=== PATIENT | male | born 1950 | race Caucasian/White ===

== ENCOUNTER 2018-07-04 13:11 | Inpatient (IN) | payer MEDICARE, OTHER ==
[2018-07-04] VITALS (10 sets, daily range): BP systolic 114–157; BP diastolic 66–84
[~2018-07-04] VITALS: Ht 190.5 cm; Wt 111.2 kg
[2018-07-04] MEDS ORDERED: CEFEPIME INJECTION 1,000 MG in NS (IVPB) 50 ML IV SCH (13:30)
[2018-07-04] MEDS ORDERED: NS (IVPB) 50 ML ONE (15:10)
[2018-07-04] MEDS ORDERED: CEFEPIME 1 GM (MAXIPIME) VIAL ONE (15:10)
[2018-07-04] MEDS ORDERED: GLIP10TA13 PO (15:18)
[2018-07-04] MEDS ORDERED: WARF4TAB70 PO ×2 (15:18→15:43)
[2018-07-04] MEDS ORDERED: PIOG30TA71 PO (15:18)
[2018-07-04] MEDS ORDERED: LEVO112T55 PO (15:18)
[2018-07-04] MEDS ORDERED: SIMV80TA5 PO (15:18)
[2018-07-04] MEDS ORDERED: METF-399 PO (15:18)
[2018-07-04] MEDS: NS IV 1000 ML 1,000 ML IV SCH ×3 (15:31→22:00)
[2018-07-04] MEDS: NOREPINEPHRINE 4 MG in NS (IVPB) 250 ML IV SCH (15:33)
[2018-07-04] MEDS ORDERED: SITA100T12 PO (15:43)
[2018-07-04] MEDS ORDERED: CHLO4TAB PO ×2 (15:43→15:47)
[2018-07-04] MEDS ORDERED: TADA5TAB2 PO (15:43)
--- NOTE | 2018-07-04 15:46 | Diagnostic Imaging Report ---
INDICATION: Sepsis. COMPARISON: None. FINDINGS: Single frontal radiographic view of the chest was obtained and demonstrates borderline prominent appearance of the cardiac silhouette. Pulmonary vasculature is within normal limits. Lungs are clear. There is no focal consolidation, large effusion, nor pneumothorax. Bony structures show no gross acute abnormalities. IMPRESSION: 1. Borderline prominent appearance of the cardiac silhouette. This may be artificially accentuated secondary to portable technique. 2. Otherwise, no evidence of failure or focal infiltrate. Dictated by: Dictated on workstation # [id number]
--- NOTE | 2018-07-04 15:47 | Consultation-Cardiology ---
HPI-Cardiology Cardiology Consultation Date of Consultation 07/04/18 Date of Admission Time Seen by Provider: 15:39 Indication: elevated troponin level HPI 68 years old gentleman with history of coronary artery disease, had 2 stents placed in the late 90s. No further workup was done. Was in his usual state of health, had some diarrhea yesterday. He was wrapping [place] gift today when he had episode of dizziness and diaphoresis and had significant diarrhea, multiple bowel movement. Taken to the emergency room in [place] and transferred here after noting having elevation in troponin level and lactic acid with leukocytosis. He denied any fever or chills. Denied any chest pain, no heaviness, no pressure or palpitation, denied any syncope, had some lightheadedness and dizziness. Has been having some shortness of breath on exertion. Home Medications & Allergies Allergies: Coded Allergies: No Allergy Information Available (Unverified , 07/04/18) Home Medication List Reviewed: Yes [facility]-Gmftvn Hx Patient Social History Marital Status: Employed/Student: retired Alcohol Use: Occasionally Uses Recreational Drug Use: No Smoking Status: Former Smoker Type Used: Cigarettes Recent Foreign Travel: No Recent Infectious Disease Expo: No Recent Hopitalizations: No Physical Abuse Screen: No Sexual Abuse: No Immunizations Up To Date Date of Influenza Vaccine: May 04, 2018 Past Medical History past medical history as described below Family Medical History Family Medical Hx strong family history of heart disease with father of a heart attack, brother and 2 sisters had bypass surgeries Review of Systems Constitutional: see HPI, dizziness, malaise EENTM: see HPI, no symptoms reported Respiratory: see HPI; No cough; dyspnea on exertion; No hemoptysis, No orthopnea, No phlegm, No short of breath, No stridor, No wheezing, No other Cardiovascular: see HPI; No chest pain, No edema, No Hx of Intervention, No palpitations, No syncope, No vascular heart diseas, No other Gastrointestinal: No RUQ, No LUQ, No RLQ, No LLQ; see HPI; No abdominal pain, No constipation; diarrhea; No dysphagia, No hematemesis, No heartburn, No jaundice, No loss of appetite, No melena, No nausea, No vomiting, No other Genitourinary: no symptoms reported, see HPI Musculoskeletal: no symptoms reported, see HPI Skin: no symptoms reported, see HPI Psychiatric/Neurological: No Symptoms Reported, See HPI Reviewed Test Results Reviewed Test Results Lab Laboratory Tests Test 07/04/18 14:46 07/04/18 14:49 Range/Units Lactic Acid Level 2.59 *H 0.50-2.00 MMOL/L Troponin I < 0.30 <0.30 NG/ML Glucometer 148 H 70-110 MG/DL labs from [place] emergency room WBC 11.8 Hemoglobin 10.9 Platelets 366 INR 2.6 BUN 17 and creatinine 1.54 Glucose 250 Troponin 20, normal value in [address] [place] [address] is less than 15 Lactic acid 3.7 Liver enzymes were normal, sodium 131 otherwise electrolytes were normal Physical Exam Vital Signs Vital Signs - First Documented 07/04/18 14:34 Temp 96.3 Pulse 76 Resp 18 B/P (MAP) 143/79 (100) Pulse Ox 99 O2 Delivery Room Air Capillary Refill : Height, Weight, BMI Height: 6'3.00" Weight: 231lbs. 7.0oz. 104.712920jh; 28.9 BMI Method: General Appearance: No Apparent Distress, WD/WN Eyes: Bilateral Eye Normal Inspection, Bilateral Eye PERRL, Bilateral Eye EOMI HEENT: PERRL/EOMI, TMs Normal, Normal ENT Inspection, Pharynx Normal Neck: Full Range of Motion, Normal Inspection, Non Tender, Supple, Carotid Bruit (left bruit) Respiratory: Chest Non Tender, Lungs Clear, Normal Breath Sounds, No Accessory Muscle Use, No Respiratory Distress Cardiovascular: Regular Rate, Rhythm, No Edema, No Gallop, No JVD, No Murmur, Normal Peripheral Pulses Gastrointestinal: Normal Bowel Sounds, No Organomegaly, No Pulsatile Mass, Non Tender, Soft Back: Normal Inspection, No CVA Tenderness, No Vertebral Tenderness Extremity: Normal Capillary Refill, Normal Inspection, Normal Range of Motion, Non Tender, No Calf Tenderness, No Pedal Edema Neurologic/Psychiatric: Alert, Oriented x3, No Motor/Sensory Deficits, Normal Mood/Affect Skin: Normal Color, Warm/Dry Lymphatic: No Adenopathy A/P-Cardiology Admission Diagnosis Non-ST myocardial infarction Hyperlipidemia Diabetes mellitus Coronary artery disease Assessment/Plan Non-ST elevation myocardial infarction, history of coronary artery disease, 2 stents placed in the late 90s, no further workup was done, has been asymptomatic. Had elevation in troponin which will be repeated in our institution. Patient had subtle EKG changes in the inferior leads, nonspecific in addition to first degree AV block. He is asymptomatic at this time. Started on aspirin. He is maintained on Coumadin with INR 2.5 which is held. I will continue monitoring and planning to proceed with cardiac catheterization once his INR is lower and renal function are better unless he becomes symptomatic or had more acute EKG changes or change in condition Sepsis, lactic acidosis. Started on IV fluid. Receiving antibiotic and monitor and managed by primary care physician Diabetes mellitus, hyperglycemia, followed and managed by primary care physician Diarrhea, followed and managed by primary care physician Hyperlipidemia maintained on simvastatin. I will evaluate lipid profile Carotid bruit noted on the left side. 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 Currently in remission Hypothyroidism, followed and managed by primary care physician History of colon polypectomy done in 2008 Strong family history of heart disease with multiple family members with heart attack and bypass surgeries TAVON SUGGS MD Jul 04, 2018 15:47
[2018-07-04] MEDS ORDERED: CATHETER FLUSH 10 ML SYR IV PRN (16:00)
--- NOTE | 2018-07-04 16:19 | History & Physical-Hospitalist ---
History of Present Illness HPI/Chief Complaint Pt is a 68CM with a PMH of Bladder cancer, NIDDMII, CAd s/p stenting, DVT/PE, hypothyroidism, and HLD who presented to the ER due to near syncopal episode. He states he was up wrapping his 's [place] presents when he began to feel very lightheaded, sweaty, and weak. He walked over to a chair so he didn't fall and when he sat he realized he had been had a loose stool at that time so he went to the bathroom where he continued to have a large volume stool. He then developed neck pain and felt like he was going to pass out. He is unsure if he did have a syncopal episode. He called 911 at that time. When he was found by EMS he was found to be very hypotensive. He responded well to fluids in the OSH but was found to have an elevated high sensitivity troponin and was transferred here for further cardiac evaluation. Source: patient, family Date Seen 07/04/18 Time Seen by a Provider: 16:12 Attending Physician Concha Shabazz MD PCP Hans Farmer MD Referring Physician Date of Admission Jul 04, 2018 at 14:51 Home Medications & Allergies Home Medications Reviewed patient Home Medication Reconciliation performed by pharmacy medication reconciliations process control technician and/or nursing. Patients Allergies have been reviewed. Allergies Allergies Coded Allergies No Allergy Information Available (Wkgtdwvgkb01/19/18) Past Rcdpfuv-Hxwxfn-Tbsnty Hx Past Med/Social Hx: Reviewed Nursing Past Med/Soc Hx Patient Social History Marrital Status: Employed/Student: retired Alcohol Use: Occasionally Uses Number of Drinks Today: 1 Alcohol Beverage of Choice: [place] Recreational Drug Use: No Smoking Status: Former Smoker Former Smoker, Quit: Jul 04, 1980 Type Used: Cigarettes Physical Abuse Screen: No Sexual Abuse: No Recent Foreign Travel: No Contact w/other who traveled: No Recent Hopitalizations: No Recent Infectious Disease Expo: No Immunizations Up To Date Date of Influenza Vaccine: May 04, 2018 Seasonal Allergies Seasonal Allergies: No Past Medical History Currently Using CPAP: No Currently Using BIPAP: No Are Your Blood Sugars Over 250: No HEENT: Cataract Hearing Impairment: Denies Cancer: Bladder Did You Recieve Any Treatments: Yes What Type of Treatment Did You: Surgical Intervention Cancer: live tb Skin/Integumentary: Psoriasis History of Blood Disorders: No Adverse Reaction to Blood [place]: No Review of Systems Constitutional: No chills, No fever; weakness EENTM: No blurred vision, No double vision, No nose congestion, No throat pain Respiratory: No cough, No dyspnea on exertion, No short of breath Cardiovascular: No chest pain, No edema; Hx of Intervention; No palpitations; syncope Gastrointestinal: see HPI, diarrhea Genitourinary: No dysuria, No frequency Musculoskeletal: No joint pain, No muscle pain Skin: No lesions, No rash Psychiatric/Neurological: Denies Headache, Denies Numbness, Denies Tingling Physical Exam Physical Exam Vital Signs Vital Signs - First Documented 07/04/18 07/04/18 14:29 14:34 Temp 96.3 Pulse 78 Resp 18 B/P (MAP) 143/79 (100) Pulse Ox 99 O2 Delivery Room Air Capillary Refill : Height, Weight, BMI Height: 6'3.00" Weight: 231lbs. 7.0oz. 104.967888ns; 28.9 BMI Method: General Appearance: No Apparent Distress, WD/WN HEENT: PERRL/EOMI, Moist Mucous Membranes; No Scleral Icterus (L), No Scleral Icterus (R) Neck: Non Tender, Supple; No Thyromegaly Respiratory: Lungs Clear, No Respiratory Distress Cardiovascular: Regular Rate, Rhythm, No JVD, No Murmur Gastrointestinal: Normal Bowel Sounds, Non Tender, Soft Extremity: Normal Capillary Refill, No Calf Tenderness Neurologic/Psychiatric: Alert, Oriented x3, Normal Mood/Affect Skin: Normal Color, Warm/Dry; No Mottled Results Results/Procedures Labs Laboratory Tests 07/06/18 04:05 07/07/18 03:13 Patient resulted labs reviewed. Assessment/Plan Admission Diagnosis NSTE Hypotension Admission Status: Inpatient Order (span 2 midnights) Reason for Inpatient Admission: IV fluid resuscitation, cardiology elevation for eleevate troponin Diagnosis/Problems Diagnosis/Problems (1) Hypotension Assessment & Plan: Hypotensive in OSH but now normalized Likely due to volume loss from GI losses No signs of infection Has already received abx and cultures at outside hospital Continue abx here as precaution Qualifiers: Hypotension type: hypotension due to hypovolemia Qualified Codes: I95.89 - Other hypotension; E86.1 - Hypovolemia (2) CAD (coronary artery disease) Status: Chronic Assessment & Plan: No chest pain Extensive cardiac history high sensitivity troponin elevated at OSH concerning for NSTEMI troponin negative here Cardiology consulted, appreciate recs Qualifiers: Coronary Disease-Associated Artery/Lesion type: [place] artery [place] vs. transplanted heart: [place] heart Associated angina: without angina Qualified Codes: I25.10 - Atherosclerotic heart disease of [place] coronary artery without angina pectoris (3) Non-insulin dependent type 2 diabetes mellitus Status: Chronic Assessment & Plan: SSI (4) Hypothyroidism Status: Chronic Assessment & Plan: Continue home supplement Qualifiers: Hypothyroidism type: acquired Qualified Codes: E03.9 - Hypothyroidism, unspecified (5) Chronic anticoagulation Assessment & Plan: INR at therapeutic level at OSH On for DVT and PE (6) Bladder cancer Status: Chronic Assessment & Plan: remote history 8 years ago Qualifiers: Bladder location: unspecified site Qualified Codes: C67.9 - Malignant neoplasm of bladder, unspecified Clinical Quality Measures DVT/VTE Risk/Contraindication: Risk Factor Score Per Nursin RFS Level Per Nursing on Admit: 2=Moderate CONCHA SHABAZZ MD Jul 04, 2018 16:19
--- NOTE | 2018-07-04 16:52 | Pulmonary Consultation ---
History of Present Illness History of Present Illness Date of Consultation 07/04/18 16:51 Date of Admission Reason for Visit: elevated troponin level Allergies and Home Medications Allergies Coded Allergies: No Allergy Information Available (Unverified , 07/04/18) Home Medications Chlorpheniramine Maleate 4 Mg Tablet, 4 MG PO DAILY, (Reported) Chlorpheniramine Maleate 4 Mg Tablet, 4 MG PO BID PRN for DRAINAGE, (Reported) Glipizide 10 Mg Tablet, 10 MG PO BID, (Reported) Levothyroxine Sodium 112 Mcg Tablet, 112 MCG PO DAILY, (Reported) Metformin HCl 1,000 Mg Tablet, 1,000 MG PO BID, (Reported) Pioglitazone HCl 30 Mg Tablet, 30 MG PO HS, (Reported) Simvastatin 80 Mg Tablet, 80 MG PO HS, (Reported) Sitagliptin Phosphate 100 Mg Tablet, 100 MG PO DAILY, (Reported) Tadalafil 5 Mg Tablet, 5 MG PO DAILY, (Reported) Warfarin Sodium 4 Mg Tablet, 8 MG PO MoWe, (Reported) TAKES 2 (4MG) TABLETS Warfarin Sodium 4 Mg Tablet, 4 MG PO SuTuThFrSa, (Reported) Past Hadjlkn-Nkhyjc-Ybqlad Hx Patient Social History Alcohol Use: Occasionally Uses Number of Drinks Today: 1 Alcohol Beverage of Choice: [place] Recreational Drug Use: No Smoking Status: Former Smoker Type Used: Cigarettes Former Smoker, Quit: Jul 04, 1980 Recent Foreign Travel: No Contact w/Someone Who Travel: No Recent Infectious Disease Expo: No Recent Hopitalizations: No Immunizations Up To Date Date of Influenza Vaccine: May 04, 2018 Seasonal Allergies Seasonal Allergies: No Past Medical History Surgeries: Yes Respiratory: No Currently Using CPAP: No Currently Using BIPAP: No Cardiac: Yes (stents in 1996) Neurological: No Genitourinary: Yes (bladder cancer in past) Gastrointestinal: No Musculoskeletal: No Are Your Blood Sugars Over 250: No HEENT: Yes Cataract Hearing Impairment: Denies Cancer: Yes Bladder Did You Recieve Any Treatments: Yes What Type of Treatment Did You: Surgical Intervention live tb Psychosocial: No Integumentary: Yes Psoriasis Blood Disorders: No Adverse Reaction/Blood Tranf: No Sepsis Event Evaluation Height, Weight, BMI Height: 6'3.00" Weight: 231lbs. 7.0oz. 104.163997ac; 28.9 BMI Method: Exam Exam Vital Signs Date Time Temp Pulse Resp B/P (MAP) Pulse Ox O2 Delivery O2 Flow Rate FiO2 07/04/18 15:46 99 Room Air 07/04/18 15:15 79 11 144/79 (100) 98 Room Air 07/04/18 14:34 96.3 76 18 143/79 (100) 99 Room Air 07/04/18 14:29 78 Height & Weight Height: 6'3.00" Weight: 231lbs. 7.0oz. 104.291459kh; 28.9 BMI Method: General Appearance: No Apparent Distress, WD/WN HEENT: PERRL/EOMI, TMs Normal, Normal ENT Inspection, Pharynx Normal Neck: Full Range of Motion, Normal Inspection, Non Tender, Supple, Carotid Bruit (left bruit) Respiratory: Chest Non Tender, Lungs Clear, Normal Breath Sounds, No Accessory Muscle Use, No Respiratory Distress Cardiovascular: Regular Rate, Rhythm, No Edema, No Gallop, No JVD, No Murmur, Normal Peripheral Pulses Extremity: Normal Capillary Refill, Normal Inspection, Normal Range of Motion, Non Tender, No Calf Tenderness, No Pedal Edema Neurologic/Psychiatric: Alert, Oriented x3, No Motor/Sensory Deficits, Normal Mood/Affect Skin: Normal Color, Warm/Dry Lymphatic: No Adenopathy Assessment/Plan Assessment/Plan Nstemi sepsis hypotension -resolved diarrhea ZAHRA BLOUNT DO Jul 04, 2018 16:52
[2018-07-04 17:33] LABS: CALCIUM 8.9 MG/DL (8.5-10.1); CREATININE SERUM 1.35 MG/DL (0.60-1.30); POTASSIUM 4.4 MMOL/L (3.6-5.0)
[2018-07-04] MEDS ORDERED: NON-FORMULARY MEDICATION 1 EA EA (Simvastatin 80 MG) PO SCH (21:00)
[2018-07-04] MEDS: SIMvastatin 40 MG (ZOCOR) TAB PO SCH (21:46)
[2018-07-04] MEDS: inSUlin ASPART (NovoLOG) 1 UNIT/0.01 ML (CHARGE PER UNIT) SC SCH (21:46)
[2018-07-04] MEDS: CEFEPIME 2 GM/NS 50 ML IVPB IV SCH ×2 (21:46)
[2018-07-05] VITALS (13 sets, daily range): BP systolic 104–154; BP diastolic 61–80
[2018-07-05 03:28] LABS: BASOPHILS % (AUTO) 0 % (0-10); EOSINOPHILS # (AUTO) 0.2 10^3/uL (0.0-0.3); EOSINOPHILS % (AUTO) 2 % (0-10); HEMATOCRIT 29 % (40-54); HEMOGLOBIN 9.7 G/DL (13.3-17.7); LYMPHOCYTES # (AUTO) 2.2 X 10^3 (1.0-4.0); LYMPHOCYTES % (AUTO) 31 % (12-44); MEAN CORPUSCULAR HEMOGLOBIN 29 PG (25-34); MEAN CORPUSCULAR HGB CONC 33 G/DL (32-36); MEAN CORPUSCULAR VOLUME 87 FL (80-99); MEAN PLATELET VOLUME 8.5 FL (7.4-10.4); MONOCYTES # (AUTO) 0.5 X 10^3 (0.0-1.0); MONOCYTES % (AUTO) 8 % (0-12); NEUTROPHILS # (AUTO) 4.2 X 10^3 (1.8-7.8); NEUTROPHILS % (AUTO) 59 % (42-75); PLATELET COUNT 325 10^3/uL (130-400); RED BLOOD COUNT 3.37 10^6/uL (4.35-5.85); RED CELL DISTRIBUTION WIDTH 13.6 % (10.0-14.5); WHITE BLOOD COUNT 7.1 10^3/uL (4.3-11.0)
[2018-07-05 03:40] LABS: INR 2.6 (0.8-1.4); PROTHROMBIN TIME PATIENT 27.9 SEC (12.2-14.7)
[2018-07-05 03:54] LABS: CALCIUM 7.9 MG/DL (8.5-10.1); CARBON DIOXIDE 20 MMOL/L (21-32); CHLORIDE 106 MMOL/L (98-107); CREATININE SERUM 1.12 MG/DL (0.60-1.30); GFR ESTIMATED > 60; GLUCOSE 145 MG/DL (70-105); MAGNESIUM 1.7 MG/DL (1.8-2.4); PHOSPHORUS 2.9 MG/DL (2.3-4.7); POTASSIUM 4.1 MMOL/L (3.6-5.0); SODIUM 136 MMOL/L (135-145)
[2018-07-05 04:02] LABS: BUN/CREATININE RATIO 13
[2018-07-05 04:22] LABS: ALANINE AMINOTRANSFERASE 14 U/L (0-55); ALBUMIN 3.3 GM/DL (3.2-4.5); ALKALINE PHOSPHATASE 45 U/L (40-136); BILIRUBIN,TOTAL 0.2 MG/DL (0.1-1.0); BUN/CREATININE RATIO 13; CALCIUM 8.1 MG/DL (8.5-10.1); CARBON DIOXIDE 21 MMOL/L (21-32); CHLORIDE 106 MMOL/L (98-107); CHOLESTEROL 103 MG/DL (< 200); GFR ESTIMATED > 60; GLUCOSE 146 MG/DL (70-105); HDL CHOLESTEROL 29 MG/DL (40-60); POTASSIUM 4.1 MMOL/L (3.6-5.0); SODIUM 136 MMOL/L (135-145); TOTAL PROTEIN 6.3 GM/DL (6.4-8.2); TRIGLYCERIDES 95 MG/DL (<150); VLDL CHOLESTEROL 19 MG/DL (5-40)
[2018-07-05] MEDS: NOREPINEPHRINE 4 MG in NS (IVPB) 250 ML IV SCH (05:24)
[2018-07-05] MEDS: inSUlin ASPART (NovoLOG) 1 UNIT/0.01 ML (CHARGE PER UNIT) SC SCH ×4 (05:25→21:00)
[2018-07-05] MEDS: NS IV 1000 ML 1,000 ML IV SCH ×2 (05:34→16:04)
[2018-07-05] MEDS ORDERED: POTASSIUM CL 10MEQ/50ML IVPB 50 ML IV SCH (06:00)
[2018-07-05] MEDS ORDERED: MAGNESIUM 1 GM/100 ML IVPB 100 ML IV SCH (06:00)
[2018-07-05] MEDS ORDERED: KCL 20 MEQ TAB (K-DUR) PO SCH (06:00)
[2018-07-05] MEDS: LEVOTHYROXINE 112 MCG (LEVOTHROID) TAB PO SCH (06:36)
[2018-07-05] MEDS: PANTOPRAZOLE 40 MG (PROTONIX) TAB PO SCH (06:36)
[2018-07-05] MEDS: MAGNESIUM 1 GM/100 ML IVPB 100 ML IV SCH ×2 (06:36→07:53)
--- NOTE | 2018-07-05 07:37 | Progress Note-Hospitalist ---
Subjective HPI/CC On Admission Date Seen by Provider: Jul 05, 2018 Time Seen by Provider: 07:33 Pt is a 68CM with a PMH of Bladder cancer, NIDDMII, CAd s/p stenting, DVT/PE, hypothyroidism, and HLD who presented to the ER due to near syncopal episode. He states he was up wrapping his 's [place] presents when he began to feel very lightheaded, sweaty, and weak. He walked over to a chair so he didn't fall and when he sat he realized he had been had a loose stool at that time so he went to the bathroom where he continued to have a large volume stool. He then developed neck pain and felt like he was going to pass out. He is unsure if he did have a syncopal episode. He called 911 at that time. When he was found by EMS he was Subjective/Events-last exam Pt reports feeling well today. No complaints. No further diarrhea or abd symptoms. Focused Exam Lactate Level 07/04/18 14:46: Lactic Acid Level 2.59*H 07/04/18 17:00: Lactic Acid Level 1.10 Objective Exam Vital Signs Vital Signs Date Time Temp Pulse Resp B/P (MAP) Pulse Ox O2 Delivery O2 Flow Rate FiO2 07/05/18 06:00 70 13 111/65 (80) 94 Room Air 07/04/18 14:34 96.3 Capillary Refill : General Appearance: No Apparent Distress, WD/WN Respiratory: Lungs Clear, No Respiratory Distress Cardiovascular: Regular Rate, Rhythm, No Murmur Gastrointestinal: Normal Bowel Sounds, Soft Neurologic/Psychiatric: Alert, Oriented x3 Results/Procedures Lab Laboratory Tests 07/04/18 14:46 07/05/18 03:19 Patient resulted labs reviewed. Assessment/Plan Assessment and Plan Assess & Plan/Chief Complaint Hypotension Diagnosis/Problems Diagnosis/Problems (1) Hypotension Assessment & Plan: Hypotensive in OSH but now normalized Likely due to volume loss from GI losses No signs of infection Has already received abx and cultures at outside hospital Plan to DC abx tomorrow if cultures negative x48 hours Can transfer to 4th floor Qualifiers: Hypotension type: hypotension due to hypovolemia Qualified Codes: I95.89 - Other hypotension; E86.1 - Hypovolemia (2) CAD (coronary artery disease) Status: Chronic Assessment & Plan: No chest pain high sensitivity troponin elevated at OSH but negative here Cardiology consulted, appreciate recs Plan for cath prior to DC, defer timing to Dr Melchor Qualifiers: Coronary Disease-Associated Artery/Lesion type: [place] artery [place] vs. transplanted heart: [place] heart Associated angina: without angina Qualified Codes: I25.10 - Atherosclerotic heart disease of [place] coronary artery without angina pectoris (3) Non-insulin dependent type 2 diabetes mellitus Status: Chronic Assessment & Plan: SSI holding home meds (4) Hypothyroidism Status: Chronic Assessment & Plan: Continue home supplement Qualifiers: Hypothyroidism type: acquired Qualified Codes: E03.9 - Hypothyroidism, unspecified (5) Chronic anticoagulation Assessment & Plan: INR 2.6 On for DVT and PE Holding for potential cath (6) Bladder cancer Status: Chronic Assessment & Plan: remote history 8 years ago Qualifiers: Bladder location: unspecified site Qualified Codes: C67.9 - Malignant neoplasm of bladder, unspecified Clinical Quality Measures DVT/VTE Risk/Contraindication: Risk Factor Score Per Nursin RFS Level Per Nursing on Admit: 2=Moderate CONCHA ARMENTA MD Jul 05, 2018 07:37
--- NOTE | 2018-07-05 07:45 | Diagnostic Imaging Report ---
INDICATION: Dyspnea. TECHNIQUE: Single frontal view of the chest. COMPARISON: 07/04/2018 FINDINGS: There is mild cardiomegaly. No focal consolidation is seen. There is no pleural effusion or pneumothorax. The osseous structures demonstrate no acute abnormality. IMPRESSION: Cardiomegaly with no acute pulmonary abnormality seen. Dictated by: Dictated on workstation # [id number]
--- NOTE | 2018-07-05 07:51 | Cardiology Progress Note ---
Subjective Date Seen by Provider: Jul 05, 2018 Time Seen by Provider: 07:48 Subjective/Events-last exam Patient is in bed, feeling better, no dizziness, no chest pain, no diarrhea Review of Systems General: No Chills, No Night Sweats, No Fatigue, No Malaise, No Appetite, No Other HEENT: No Head Aches, No Visual Changes, No Eye Pain, No Ear Pain, No Dysphasia , No Sinus Congestion, No Post Nasal Drip, No Sore Throat, No Other Pulmonary: No Dyspnea, No Cough, No Pleuritic Chest Pain, No Other Cardiovascular: No: Chest Pain, Palpitations, Orthopnea, Paroxysmal Noc. Dyspnea, Edema, Lt Headedness, Other Focused Exam Lactate Level 07/04/18 14:46: Lactic Acid Level 2.59*H 07/04/18 17:00: Lactic Acid Level 1.10 Objective-Cardiology Exam Last Set of Vital Signs Vital Signs 07/04/18 07/05/18 14:34 06:00 Temp 96.3 Pulse 70 Resp 13 B/P (MAP) 111/65 (80) Pulse Ox 94 O2 Delivery Room Air Capillary Refill : I&O Intake and Output 07/05/18 00:00 Intake Total 7250 ml Output Total 1600 ml Balance 5650 ml Intake Oral 1250 ml IV Total 6000 ml Output Urine Total 1600 ml Daily Weight Change No General: Alert, Oriented X3, Cooperative HEENT: Atraumatic, PERRLA Neck: Supple, No JVD, No Thyromegaly Lungs: Clear to Auscultation, Normal Air Movement Heart: Regular Rate, Normal S1, Normal S2, No Murmurs Abdomen: Normal Bowel Sounds, Soft, No Tenderness, No Hepatosplenomegaly, No Masses Extremities: No Clubbing, No Cyanosis, No Edema, Normal Pulses, No Tenderness/ Swelling Skin: No Rashes, No Breakdown, No Significant Lesion Neuro: Normal Gait, Normal Speech, Strength at 5/5 X4 Ext, Normal Tone, Sensation Intact Psych/Mental Status: Mental Status NL, Mood NL Results Lab Laboratory Tests 07/04/18 14:46 07/05/18 03:19 A/P-Cardiology Admission Diagnosis Non-ST myocardial infarction Hyperlipidemia Diabetes mellitus Coronary artery disease Assessment/Plan Non-ST elevation myocardial infarction, history of coronary artery disease, 2 stents placed in the late , no further workup was done, has been asymptomatic. Had elevation in troponin which will be repeated in our institution. Patient had subtle EKG changes in the inferior leads, nonspecific in addition to first degree AV block. He is asymptomatic at this time. Started on aspirin. planning to proceed with cardiac catheterization once INR is lower. Continue on IV fluid for now Questionable sepsis, patient does not have any signs of sepsis, blood pressure is stable. Managed by primary team Diabetes mellitus, hyperglycemia, followed and managed by primary care physician Diarrhea, reporting improvement. Continue on IV fluid and monitor Hypomagnesemia, being replaced. Continue to monitor Hyperlipidemia maintained on simvastatin, hold for now and monitor lipids Carotid bruit noted on the left side. 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 Currently in remission Hypothyroidism, followed and managed by primary care physician History of colon polypectomy done in 2008 Strong family history of heart disease with multiple family members with heart attack and bypass surgeries Clinical Quality Measures DVT/VTE Risk/Contraindication: Risk Factor Score Per Nursin RFS Level Per Nursing on Admit: 2=Moderate TAVON SUGGS MD Jul 05, 2018 07:51
[2018-07-05] MEDS: CHLORPHENIRAMINE (CHLOTRIMENTON) 4 MG TAB PO SCH (11:25)
[2018-07-05] MEDS: CEFEPIME 2 GM/NS 50 ML IVPB IV SCH ×4 (11:26→22:50)
[2018-07-05] MEDS: ASPIRIN E.C. 81 MG (ECOTRIN) TAB PO SCH (11:26)
--- NOTE | 2018-07-05 12:31 | Diagnostic Imaging Report ---
PROCEDURE: US carotid duplex, bilateral. TECHNIQUE: Multiple real-time grayscale images were obtained over the carotid arteries in various projections, bilaterally. Additional spectral analysis and color Doppler duplex images were also obtained. INDICATION: Carotid bruit. There is calcified plaque in the common carotid arteries and carotid bifurcations extending into the proximal internal and external carotid arteries. However, velocities appear to be normal bilaterally. No significant velocity elevation is identified. No stenosis or occlusion is seen. Both vertebral arteries show antegrade flow. IMPRESSION: Bilateral carotid plaque. There is no evidence of a hemodynamically significant stenosis. Parameters based on the consensus panel Moffett-Scale and Doppler ultrasound criteria published May 2003, Radiology, Volume 229. DOPPLER (peak systolic velocity M/S Right Left CCA 1.09 1.11 ICA Proximal 1.24 1.04 ICA Mid .98 .94 ICA Distal .96 .84 RATIO 1.14 .94 ECA .89 1.24 VERT .49 .39 Dictated by: Dictated on workstation # [id number]
[2018-07-05] MEDS: SIMvastatin 40 MG (ZOCOR) TAB PO SCH (21:00)
[2018-07-06] VITALS (10 sets, daily range): BP systolic 96–148; BP diastolic 58–88
[2018-07-06] MEDS: NS IV 1000 ML 1,000 ML IV SCH ×4 (02:30→22:45)
[2018-07-06 04:13] LABS: BASOPHILS % (AUTO) 0 % (0-10); EOSINOPHILS # (AUTO) 0.2 10^3/uL (0.0-0.3); EOSINOPHILS % (AUTO) 3 % (0-10); HEMATOCRIT 30 % (40-54); HEMOGLOBIN 9.6 G/DL (13.3-17.7); LYMPHOCYTES # (AUTO) 2.3 X 10^3 (1.0-4.0); LYMPHOCYTES % (AUTO) 29 % (12-44); MEAN CORPUSCULAR HEMOGLOBIN 29 PG (25-34); MEAN CORPUSCULAR HGB CONC 32 G/DL (32-36); MEAN CORPUSCULAR VOLUME 88 FL (80-99); MEAN PLATELET VOLUME 9.2 FL (7.4-10.4); MONOCYTES # (AUTO) 0.6 X 10^3 (0.0-1.0); MONOCYTES % (AUTO) 7 % (0-12); NEUTROPHILS # (AUTO) 4.9 X 10^3 (1.8-7.8); NEUTROPHILS % (AUTO) 61 % (42-75); PLATELET COUNT 286 10^3/uL (130-400); RED BLOOD COUNT 3.37 10^6/uL (4.35-5.85); RED CELL DISTRIBUTION WIDTH 13.3 % (10.0-14.5); WHITE BLOOD COUNT 8.1 10^3/uL (4.3-11.0)
[2018-07-06 04:32] LABS: BUN/CREATININE RATIO 11; CALCIUM 8.3 MG/DL (8.5-10.1); CARBON DIOXIDE 18 MMOL/L (21-32); CHLORIDE 103 MMOL/L (98-107); CREATININE SERUM 1.05 MG/DL (0.60-1.30); GFR ESTIMATED > 60; GLUCOSE 191 MG/DL (70-105); POTASSIUM 4.4 MMOL/L (3.6-5.0); SODIUM 131 MMOL/L (135-145)
[2018-07-06 05:00] LABS: PROTHROMBIN TIME PATIENT 22.5 SEC (12.2-14.7)
[2018-07-06] MEDS: inSUlin ASPART (NovoLOG) 1 UNIT/0.01 ML (CHARGE PER UNIT) SC SCH ×4 (05:55→21:40)
[2018-07-06] MEDS ORDERED: LIDOCAINE 1% INJ 20 ML 20 ML VIAL ONE (08:19)
[2018-07-06] MEDS ORDERED: HEParin (CATH LAB) 2,000 ML IV ONE (08:19)
[2018-07-06] MEDS: PANTOPRAZOLE 40 MG (PROTONIX) TAB PO SCH (09:34)
[2018-07-06] MEDS: LEVOTHYROXINE 112 MCG (LEVOTHROID) TAB PO SCH (09:34)
[2018-07-06] MEDS: CHLORPHENIRAMINE (CHLOTRIMENTON) 4 MG TAB PO SCH (09:34)
[2018-07-06] MEDS: ASPIRIN E.C. 81 MG (ECOTRIN) TAB PO SCH (09:34)
[2018-07-06] MEDS: CEFEPIME 2 GM/NS 50 ML IVPB IV SCH ×2 (09:41)
--- NOTE | 2018-07-06 09:42 | Discharge Inst-Simple/Standard ---
Discharge Inst-Standard Patient Instructions/Follow Up Plan of Care/Instructions/FU: Please continue to take your medications. Please follow up with your PCP in the next week and with Dr Melchor in 2 weeks. Activity as Tolerated: Yes Discharge Diet: Cardiac Diet Return to The [facility] For: Chest pain, shortness of breath, passing out, if you feel you are getting worse. Planned Outpatient Orders/Ref. Pneu Vac Indicated: Yes CONCHA ARMENTA MD Jul 06, 2018 09:39
--- NOTE | 2018-07-06 09:43 | Discharge Summary-Hospitalist ---
Diagnosis/Chief Complaint Date of Admission Jul 04, 2018 at 14:51 Date of Discharge Discharge Date: Jul 06, 2018 Discharge Diagnosis (1) Hypotension Assessment & Plan: Hypotensive in OSH but now normalized Likely due to volume loss from GI losses No signs of infection Has already received abx and cultures at outside hospital Plan to DC abx tomorrow if cultures negative x48 hours Can transfer to 4th floor (2) CAD (coronary artery disease) Status: Chronic Assessment & Plan: No chest pain high sensitivity troponin elevated at OSH but negative here Cardiology consulted, appreciate recs Plan for cath prior to DC, defer timing to Dr Melchor (3) Non-insulin dependent type 2 diabetes mellitus Status: Chronic Assessment & Plan: SSI holding home meds (4) Hypothyroidism Status: Chronic Assessment & Plan: Continue home supplement (5) Chronic anticoagulation Assessment & Plan: INR 2.6 On for DVT and PE Holding for potential cath (6) Bladder cancer Status: Chronic Assessment & Plan: remote history 8 years ago Discharge Summary Discharge Physical Exam Allergies: Coded Allergies: No Allergy Information Available (Unverified , 07/04/18) Vitals & I&Os Vital Signs Date Time Temp Pulse Resp B/P (MAP) Pulse Ox O2 Delivery O2 Flow Rate FiO2 07/06/18 08:00 97.7 74 18 148/75 (99) 96 Room Air Hospital Course Labs (last 24 hrs) Laboratory Tests 07/05/18 10:31: Glucometer 254H 07/05/18 15:48: Glucometer 178H 07/05/18 20:05: Glucometer 228H 07/06/18 04:05: White Blood Count 8.1, Red Blood Count 3.37L, Hemoglobin 9.6L, Hematocrit 30L, Mean Corpuscular Volume 88, Mean Corpuscular Hemoglobin 29, Mean Corpuscular Hemoglobin Concent 32, Red Cell Distribution Width 13.3, Platelet Count 286, Mean Platelet Volume 9.2, Neutrophils (%) (Auto) 61, Lymphocytes (%) (Auto) 29, Monocytes (%) (Auto) 7, Eosinophils (%) (Auto) 3, Basophils (%) (Auto) 0, Neutrophils # (Auto) 4.9, Lymphocytes # (Auto) 2.3, Monocytes # (Auto) 0.6, Eosinophils # (Auto) 0.2, Basophils # (Auto) 0.0, Prothrombin Time 22.5H, INR Comment 2.0H, Sodium Level 131L, Potassium Level 4.4, Chloride Level 103, Carbon Dioxide Level 18L, Anion Gap 10, Blood Urea Nitrogen 12, Creatinine 1.05 , Estimat Glomerular Filtration Rate > 60, BUN/Creatinine Ratio 11, Glucose Level 191H, Calcium Level 8.3L 07/06/18 05:32: Glucometer 175H Microbiology 07/04/18 Blood Culture - Preliminary, Resulted No growth 07/04/18 MRSA Screen - Final, Complete MRSA not isolated Patient resulted labs reviewed. Pending Labs Laboratory Tests 07/06/18 04:05: White Blood Count 8.1, Red Blood Count 3.37, Hemoglobin 9.6, Hematocrit 30, Mean Corpuscular Volume 88, Mean Corpuscular Hemoglobin 29, Mean Corpuscular Hemoglobin Concent 32, Red Cell Distribution Width 13.3, Platelet Count 286, Mean Platelet Volume 9.2, Neutrophils (%) (Auto) 61, Lymphocytes (%) (Auto) 29, Monocytes (%) (Auto) 7, Eosinophils (%) (Auto) 3, Basophils (%) (Auto) 0, Neutrophils # (Auto) 4.9, Lymphocytes # (Auto) 2.3, Monocytes # (Auto) 0.6, Eosinophils # (Auto) 0.2, Basophils # (Auto) 0.0, Prothrombin Time 22.5, INR Comment 2.0, Sodium Level 131, Potassium Level 4.4, Chloride Level 103, Carbon Dioxide Level 18, Anion Gap 10, Blood Urea Nitrogen 12, Creatinine 1.05, Estimat Glomerular Filtration Rate > 60, BUN/Creatinine Ratio 11, Glucose Level 191, Calcium Level 8.3 07/06/18 05:32: Glucometer 175 Discharge Home Medications: Active Scripts Active Reported Chlor-Trimeton (Chlorpheniramine Maleate) 4 Mg Tablet 4 Mg PO BID PRN Warfarin Sodium 4 Mg Tablet 4 Mg PO SUTUTHFRSA Chlor-Trimeton (Chlorpheniramine Maleate) 4 Mg Tablet 4 Mg PO DAILY Cialis (Tadalafil) 5 Mg Tablet 5 Mg PO DAILY Januvia (Sitagliptin Phosphate) 100 Mg Tablet 100 Mg PO DAILY Metformin HCl 1,000 Mg Tablet 1,000 Mg PO BID Warfarin Sodium 4 Mg Tablet 8 Mg PO MOWE TAKES 2 (4MG) TABLETS Simvastatin 80 Mg Tablet 80 Mg PO HS Glipizide 10 Mg Tablet 10 Mg PO BID Pioglitazone HCl 30 Mg Tablet 30 Mg PO HS Levothyroxine Sodium 112 Mcg Tablet 112 Mcg PO DAILY Instructions to patient/family Please see electronic discharge instructions given to patient. Clinical Quality Measures DVT/VTE Risk/Contraindication: Risk Factor Score Per Nursin RFS Level Per Nursing on Admit: 2=Moderate Problem Qualifiers (1) Hypotension: Hypotension type: hypotension due to hypovolemia Qualified Codes: I95.89 - Other hypotension; E86.1 - Hypovolemia (2) CAD (coronary artery disease): Coronary Disease-Associated Artery/Lesion type: [place] artery [place] vs. transplanted heart: [place] heart Associated angina: without angina Qualified Codes: I25.10 - Atherosclerotic heart disease of [place] coronary artery without angina pectoris (3) Hypothyroidism: Hypothyroidism type: acquired Qualified Codes: E03.9 - Hypothyroidism, unspecified (4) Bladder cancer: Bladder location: unspecified site Qualified Codes: C67.9 - Malignant neoplasm of bladder, unspecified CONCHA ARMENTA MD Jul 06, 2018 09:43
[2018-07-06] MEDS ORDERED: MIDAZOLAM 5 MG/5 ML (VERSED) VIAL ONE (10:16)
[2018-07-06] MEDS ORDERED: fentaNYL INJECTION 100 MCG/2 ML AMP ONE (10:16)
[2018-07-06] MEDS ORDERED: NS IV 1000 ML 1,000 ML ONE (10:16)
--- NOTE | 2018-07-06 10:33 | Cardiology Progress Note ---
Subjective Date Seen by Provider: Jul 06, 2018 Time Seen by Provider: 10:32 Subjective/Events-last exam patient was seen and evaluated, feeling better. Denied any active pain today. No palpitation. Review of Systems General: No Chills, No Night Sweats, No Fatigue, No Malaise, No Appetite, No Other HEENT: No Head Aches, No Visual Changes, No Eye Pain, No Ear Pain, No Dysphasia , No Sinus Congestion, No Post Nasal Drip, No Sore Throat, No Other Pulmonary: No Dyspnea, No Cough, No Pleuritic Chest Pain, No Other Cardiovascular: No: Chest Pain, Palpitations, Orthopnea, Paroxysmal Noc. Dyspnea, Edema, Lt Headedness, Other Focused Exam Lactate Level 07/04/18 14:46: Lactic Acid Level 2.59*H 07/04/18 17:00: Lactic Acid Level 1.10 Objective-Cardiology Exam Last Set of Vital Signs Vital Signs 07/06/18 08:00 Temp 97.7 Pulse 74 Resp 18 B/P (MAP) 148/75 (99) Pulse Ox 96 O2 Delivery Room Air Capillary Refill : Less Than 3 Seconds I&O Intake and Output 07/06/18 00:00 Intake Total 89967 ml Output Total 400 ml Balance 88713 ml Intake Oral 1490 ml IV Total 44441 ml Output Urine Total 400 ml # Voids 4 General: Alert, Oriented X3, Cooperative HEENT: Atraumatic, PERRLA Neck: Supple, No JVD, No Thyromegaly Lungs: Clear to Auscultation, Normal Air Movement Heart: Regular Rate, Normal S1, Normal S2, No Murmurs Abdomen: Normal Bowel Sounds, Soft, No Tenderness, No Hepatosplenomegaly, No Masses Extremities: No Clubbing, No Cyanosis, No Edema, Normal Pulses, No Tenderness/ Swelling Skin: No Rashes, No Breakdown, No Significant Lesion Neuro: Normal Gait, Normal Speech, Strength at 5/5 X4 Ext, Normal Tone, Sensation Intact Psych/Mental Status: Mental Status NL, Mood NL Results Lab Laboratory Tests 07/06/18 04:05 A/P-Cardiology Admission Diagnosis Non-ST myocardial infarction Hyperlipidemia Diabetes mellitus Coronary artery disease Assessment/Plan Non-ST elevation myocardial infarction, history of coronary artery disease, 2 stents placed in the late , no further workup was done, had elevated troponin level at [facility], planning to proceed with cardiac catheterization today Diabetes mellitus, followed and managed by primary care physician Sandrita, reporting improvement. Continue on IV fluid and monitor Hyperlipidemia maintained on simvastatin, hold for now and monitor lipids Carotid bruit noted on the left side. 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 Currently in remission Hypothyroidism, followed and managed by primary care physician History of colon polypectomy done in 2008 Strong family history of heart disease with multiple family members with heart attack and bypass surgeries Clinical Quality Measures DVT/VTE Risk/Contraindication: Risk Factor Score Per Nursin RFS Level Per Nursing on Admit: 2=Moderate TAVON SUGGS MD Jul 06, 2018 10:33
--- NOTE | 2018-07-06 10:34 | Cardiac Procedure Note-CS/ASA ---
Pre-Procedure Note Pre-Op Procedure Note H&P Reviewed The H&P was reviewed, patient examined and no changes noted. Date H&P Reviewed: Jul 06, 2018 Time H&P Reviewed: 10:33 Conscious Sedation Pre-Proced Time 10:33 ASA Score 3 For ASA 3 and 4: Consider anesthesia and medical clearance. Also, for patients with a history of failed moderate sedation consider anesthesia. Airway Lungs Heart ASA score ASA 1: a normal healthy patient ASA 2: a patient with a mild systemic disease (mid diabetes, controlled hypertension, obesity x ASA 3: a patient with a severe systemic disease that limits activity (angina , COPD, prior Myocardial infarction) ASA 4: a patient with an incapacitating disease that is a constant threat to life (CHF, renal failure) ASA 5: a moribund patient not expected to survive 24 hrs. (ruptured aneurysm) ASA 6: a declared brain patient whose organs are being harvested. For emergent operations, add the letter E after the classification Mallampati Classification Grade 3 Sedation Plan Analgesia, Amnesia, Plan communicated to team members, Discussed options with patient/fam, Discussed risks with patient/fam The patient is an appropriate candidate to undergo the planned procedure, sedation, and anesthesia. The patient immediately re-assessed prior to indication. TAVON SUGGS MD Jul 06, 2018 10:34
[2018-07-06] MEDS ORDERED: HEParin 1000 UNIT/ML (10ML VIAL) FOR BOLUS ONE (11:12)
[2018-07-06] MEDS ORDERED: NITRO DRIP 25000 MCG/D5W 250 ML IV ONE (11:13)
[2018-07-06] MEDS ORDERED: CLOPIDOGREL 300 MG (PLAVIX) TABLET PO ONE (12:02)
[2018-07-06] MEDS ORDERED: ASPIRIN 325 MG (5 GR) TABLET ONE (12:02)
[2018-07-06] MEDS ORDERED: PATIENT MAY USE OWN MEDS, ALL PO SCH (12:15)
--- NOTE | 2018-07-06 12:18 | Cardiac Cath Report ---
Cardiac Cath Report Physician (s)/Manufacturing Electrician (s) Physician TAVON SUGGS MD Pre-Procedure Diagnosis Pre-Procedure Diagnosis: coronary artery disease Post-Procedure Note Procedure Start Date: Jul 06, 2018 Name of Procedure: left heart catheterization Balloon angioplasty to the LAD Balloon angioplasty to the circumflex artery Findings/Procedure Note PROCEDURE NOTE: 68 years old gentleman with history of coronary artery disease, multiple intervention the past, no recent procedure, admitted with syncope and hypotension had elevated troponin in [facility]. He denied any further episode of chest pain. Was brought for cardiac catheterization possible PTCA After explaining the procedure to the patient, all pros and cons were explained , all questions were answered. The patient signed the consent and then he was placed on the cardiac catheterization laboratory. Groin was prepped SL fashion local anesthesia was used. Sheath placed in the Right femoral artery. Arlen right and left catheter were used to access the coronary system. Pigtail was used to access the left ventricular cavity. Left ventriculogram was done next Patient was given 6000 units of heparin, FL guide was advanced to the left corner system, I was able to advance a BMW wire to the LAD and parked distally. Patient has severe stenosis in the stent in the LAD with moderate to severe stenosis at the distal LAD smaller artery. I was able to advance the first balloon 2.515 mm after the first inflation was unable to advance it any further after multiple attempts I removed the balloon and used a new fresh balloon 2.515 mm with multiple inflation at the mid and distal stent after multiple inflation it appear to be improved significantly. The wire was pulled back and redirected to the circumflex artery that has a lesion that appeared to be significant proximally. I was unable to advance the same balloon in that lesion to use the fresh balloon 3.015 mm advanced it with slight difficulty then balloon angioplasty was done. I'll try to advance a stent without success I advanced a 3.0 time 8 mm balloon then try to advance guide liner which was getting stuck at the ostium of the circumflex artery. I decided to continue with balloon angioplasty alone to avoid any dissection or complication. We inflated the 8 mm balloon angioplasty showed excellent results with no residual stenosis. Balloon and wires were removed. At the end of the procedure the sheath was removed. Closure device was used FINDINGS: Hemodynamics LV 158/16, end-diastolic pressure of 16 Aorta 157/72 mean of 109 ANATOMY: Left Main has 50 percent distal stenosis Left Anterior Descending is heavily calcified with severe in-stent restenosis in the proximal and mid LAD, moderate to severe stenosis distally successful balloon angioplasty to the in-stent restenosis with excellent results using 2.5 15 mm balloon Left Circumflex is large artery with severe proximal stenosis, successful balloon angioplasty using 3.015 mm balloon with excellent results. I was unable to advance a stent through the ostium of the circumflex artery due to the angle of that artery, I was unable to advance guide liner through that area over a balloon. At that time balloon angioplasty was sufficient and we'll monitor the patient Right Coronory Artery is dominant artery with mild to moderate stenosis at the midportion. Nonobstructive disease LV Gram is normal in size with normal contraction. Estimated ejection fraction 60 percent CONCLUSION: 1. Severe in-stent restenosis in the proximal and mid LAD, successful balloon angioplasty with multiple inflation at high pressure with excellent results using 2.515 mm balloon 2. Moderate to severe distal LAD stenosis that will be treated medically at this point. 3. Severe proximal circumflex artery stenosis successful balloon angioplasty with excellent results. I was unable to advance stent to that area due to the angle of the origin of the circumflex artery 4. Mild to moderate disease in the right coronary artery nonobstructive disease 5. Normal left ventricular size and systolic function with estimated ejection fraction 60 percent DISCUSSION AND RECOMMENDATION: Patient was started on aspirin and Plavix in addition to the Coumadin. We will continue monitoring, consideration for high risk intervention to the circumflex artery and reevaluation in the future Anesthesia Type: Conscious Sedation Estimated blood loss (mL): 30 ml Contrast Amount: 240 ml Total Radiation Dose: 3165 mGy Post-Procedure Diagnosis Post-operative diagnosis: non-ST elevation myocardial infarction Coronary artery disease Hypertension Hyperlipidemia TAVON SUGGS MD Jul 06, 2018 12:18
[2018-07-06] MEDS ORDERED: ANTACID SUSP 30 ML UDC (MYLANTA) PO NR (13:15)
[2018-07-06] MEDS ORDERED: ACETAMINOPHEN 500 MG TAB (TYLENOL) ONE (16:41)
[2018-07-06] MEDS ORDERED: ACETAMINOPHEN 500 MG TAB (TYLENOL) PO PRN (16:45)
[2018-07-06] MEDS ORDERED: warFARin 2 MG (COUMADIN) TAB PO SCH (18:00)
[2018-07-06] MEDS: SIMvastatin 40 MG (ZOCOR) TAB PO SCH (21:40)
[2018-07-07] VITALS: BP 113/73
[2018-07-07 03:33] LABS: BASOPHILS % (AUTO) 0 % (0-10); EOSINOPHILS # (AUTO) 0.2 10^3/uL (0.0-0.3); EOSINOPHILS % (AUTO) 3 % (0-10); HEMATOCRIT 29 % (40-54); HEMOGLOBIN 9.5 G/DL (13.3-17.7); LYMPHOCYTES # (AUTO) 1.7 X 10^3 (1.0-4.0); LYMPHOCYTES % (AUTO) 24 % (12-44); MEAN CORPUSCULAR HEMOGLOBIN 28 PG (25-34); MEAN CORPUSCULAR HGB CONC 33 G/DL (32-36); MEAN CORPUSCULAR VOLUME 87 FL (80-99); MEAN PLATELET VOLUME 8.8 FL (7.4-10.4); MONOCYTES # (AUTO) 0.6 X 10^3 (0.0-1.0); MONOCYTES % (AUTO) 8 % (0-12); NEUTROPHILS # (AUTO) 4.3 X 10^3 (1.8-7.8); NEUTROPHILS % (AUTO) 64 % (42-75); PLATELET COUNT 330 10^3/uL (130-400); RED BLOOD COUNT 3.34 10^6/uL (4.35-5.85); RED CELL DISTRIBUTION WIDTH 13.5 % (10.0-14.5); WHITE BLOOD COUNT 6.8 10^3/uL (4.3-11.0)
[2018-07-07 03:47] LABS: INR 1.6 (0.8-1.4); PROTHROMBIN TIME PATIENT 18.8 SEC (12.2-14.7)
[2018-07-07 03:53] LABS: BUN/CREATININE RATIO 10; CALCIUM 8.3 MG/DL (8.5-10.1); CARBON DIOXIDE 22 MMOL/L (21-32); CHLORIDE 105 MMOL/L (98-107); CREATININE SERUM 0.94 MG/DL (0.60-1.30); GFR ESTIMATED > 60; GLUCOSE 144 MG/DL (70-105); POTASSIUM 4.2 MMOL/L (3.6-5.0); SODIUM 136 MMOL/L (135-145)
[2018-07-07 04:00] VITALS: BP 122/67
[2018-07-07] MEDS: inSUlin ASPART (NovoLOG) 1 UNIT/0.01 ML (CHARGE PER UNIT) SC SCH (06:13)
[2018-07-07] MEDS: LEVOTHYROXINE 112 MCG (LEVOTHROID) TAB PO SCH (06:40)
[2018-07-07] MEDS: PANTOPRAZOLE 40 MG (PROTONIX) TAB PO SCH (06:40)
[2018-07-07 08:00] VITALS: BP 125/83
--- NOTE | 2018-07-07 08:01 | Cardiology Progress Note ---
Subjective Date Seen by Provider: Jul 07, 2018 Time Seen by Provider: 08:00 Subjective/Events-last exam patient is laying down in bed, feeling better. Denied any chest pain, groin is healing well. We had a long discussion about his oriented anatomy and the need for long-term aspirin and Brilinta. Review of Systems General: No Chills, No Night Sweats, No Fatigue, No Malaise, No Appetite, No Other HEENT: No Head Aches, No Visual Changes, No Eye Pain, No Ear Pain, No Dysphasia , No Sinus Congestion, No Post Nasal Drip, No Sore Throat, No Other Pulmonary: No Dyspnea, No Cough, No Pleuritic Chest Pain, No Other Cardiovascular: No: Chest Pain, Palpitations, Orthopnea, Paroxysmal Noc. Dyspnea, Edema, Lt Headedness, Other Focused Exam Lactate Level 07/04/18 14:46: Lactic Acid Level 2.59*H 07/04/18 17:00: Lactic Acid Level 1.10 Objective-Cardiology Exam Last Set of Vital Signs Vital Signs 07/06/18 07/07/18 16:00 04:00 Temp 97.4 Pulse 81 Resp 17 B/P (MAP) 122/67 (85) Pulse Ox 96 O2 Delivery Room Air Capillary Refill : Less Than 3 SecondsLess Than 3 Seconds I&O Intake and Output 07/07/18 00:00 Intake Total 2470 ml Output Total 1325 ml Balance 1145 ml Intake Oral 420 ml IV Total 2050 ml Output Urine Total 1325 ml # Voids 1 General: Alert, Oriented X3, Cooperative HEENT: Atraumatic, PERRLA Neck: Supple, No JVD, No Thyromegaly Lungs: Clear to Auscultation, Normal Air Movement Heart: Regular Rate, Normal S1, Normal S2, No Murmurs Abdomen: Normal Bowel Sounds, Soft, No Tenderness, No Hepatosplenomegaly, No Masses Extremities: No Clubbing, No Cyanosis, No Edema, Normal Pulses, No Tenderness/ Swelling Skin: No Rashes, No Breakdown, No Significant Lesion Neuro: Normal Gait, Normal Speech, Strength at 5/5 X4 Ext, Normal Tone, Sensation Intact Psych/Mental Status: Mental Status NL, Mood NL Results Lab Laboratory Tests 07/07/18 03:13 A/P-Cardiology Admission Diagnosis Non-ST myocardial infarction Hyperlipidemia Diabetes mellitus Coronary artery disease Assessment/Plan Non-ST elevation myocardial infarction, history of coronary artery disease, 2 stents placed in the late , cardiac catheterization was done yesterday: 1. Severe in-stent restenosis in the proximal and mid LAD, successful balloon angioplasty with multiple inflation at high pressure with excellent results using 2.515 mm balloon 2. Moderate to severe distal LAD stenosis that will be treated medically at this point. 3. Severe proximal circumflex artery stenosis successful balloon angioplasty with excellent results. I was unable to advance stent to that area due to the angle of the origin of the circumflex artery 4. Mild to moderate disease in the right coronary artery nonobstructive disease 5. Normal left ventricular size and systolic function with estimated ejection fraction 60 percent Patient was educated on needing aspirin and Brilinta for the next 6 months at least Diabetes mellitus, followed and managed by primary care physician Diarrhea, reporting improvement. Continue on IV fluid and monitor Hyperlipidemia maintained on simvastatin, I am changing simvastatin to Lipitor, continue to monitor Carotid bruit noted on the left side. Planning to evaluate carotid ultrasound Hypotension, better after receiving IV fluid, continue to monitor blood pressure Acute renal insufficiency, improved after receiving IV fluid. 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 Currently in remission Hypothyroidism, followed and managed by primary care physician History of colon polypectomy done in 2008 Strong family history of heart disease with multiple family members with heart attack and bypass surgeriesnext Okay for discharge from cardiology standpoint, follow-up as an outpatient Clinical Quality Measures DVT/VTE Risk/Contraindication: Risk Factor Score Per Nursin RFS Level Per Nursing on Admit: 2=Moderate TAVON SUGGS MD Jul 07, 2018 08:01
[2018-07-07] MEDS ORDERED: ASPI-983 PO (08:05)
[2018-07-07] MEDS ORDERED: ATOR40TA PO (08:05)
[2018-07-07] MEDS ORDERED: CLOP75TA28 PO (08:05)
--- NOTE | 2018-07-07 08:06 | Discharge Inst-Post CATH ---
Discharge Inst-CATH/EP Post Cardiac Cath/EP D/C Inst Follow Up/Plan Hold metformin for 48 hours Continue on aspirin and Plavix and Coumadin Check PT/INR in [address] Melchor's office in 2-4 weeks CARDIAC CATH DISCHARGE INSTRUCTIONS *Hold Metformin for 48 hours post heart cath. ACTIVITY * Go Home directly and rest. * Limit activity of the leg (or wrist if it was used) for 7 days including aerobics, swimming, jogging, bicycling, etc. * Restrict stair-climbing for 7 days if possible, if not, climb up with your non -cath leg, then bring together on the same step. * Avoid lifting, pushing, pulling or excessive movement of the affected extremity for 7 days. * Customary sexual activity may be resumed after 2 days-use caution not to use a position that strains or causes pain to the affected extremity. * No driving for 24 hours. * NO SMOKING. * Avoid straining for bowel movements for 7 days. * Gentle walking on level ground is allowed. * Returning to work will depend on the type of procedure and the results. Your doctor will discuss this with you. CALL YOUR DOCTOR FOR ANY OF THE FOLLOWING: *If bleeding from the puncture site occurs- Apply gentle pressure to site with clean cloth and call your doctor or EMS. * If a knot or lump forms under the skin, increases in size, or causes pain. * If bruising appears to be worsening or moving further down your leg instead of disappearing. * Temperature above 101 F. CARE OF YOUR GROIN INCISION; * Bruising or purple discoloration of the skin near the puncture site is common. * You may shower only, no bathtub bathing for 5 days. Be careful to avoid slipping as your leg may feel stiff. * If a closure device was used on your femoral artery, please see the attached guide regarding care of the device and your leg. * Leave the dressing on, until removed by office staff. CARE OF YOUR WRIST INCISION; * Bruising or purple discoloration of the skin near the puncture site is common. * You may shower. * DO NOT submerge wrist. * Leave dressing on, until removed by office staff.. TAVON MELCHOR MD Jul 07, 2018 08:05
[2018-07-07 08:34] VITALS: BP 125/83
[2018-07-07] MEDS ORDERED: ASPIRIN E.C. 81 MG (ECOTRIN) TAB PO SCH (09:00)
[2018-07-07] MEDS ORDERED: CLOPIDOGREL 75 MG (PLAVIX) TABLET PO SCH (09:00)
[2018-07-07] MEDS: CHLORPHENIRAMINE (CHLOTRIMENTON) 4 MG TAB PO SCH (09:23)
[2018-07-07] MEDS: NS IV 1000 ML 1,000 ML IV SCH (09:47)
[2018-07-09] MEDS ORDERED: warFARin 2 MG (COUMADIN) TAB PO SCH (18:00)
== END 2018-07-07 10:00 | disposition home or self-care (01) | DRG 251 ==
LOC: ICU 14:51 → 4TH 07-05 09:30 → ICU 07-06 12:29
PROVIDERS: ADMIT Family Medicine; ATTEND Family Medicine
PROC: 02713ZZ Dilation of Coronary Artery, Two Arteries, Percutaneous Approach (ICD-10-PCS; principal; 2018-07-06)
PROC: 4A023N7 Measurement of Cardiac Sampling and Pressure, Left Heart, Percutaneous Approach (ICD-10-PCS; 2018-07-06)
PROC: B2151ZZ Fluoroscopy of Left Heart using Low Osmolar Contrast (ICD-10-PCS; 2018-07-06)
PROC: B2111ZZ Fluoroscopy of Multiple Coronary Arteries using Low Osmolar Contrast (ICD-10-PCS; 2018-07-06)
DX: I21.4 Non-ST elevation (NSTEMI) myocardial infarction (principal); T82.855A Stenosis of coronary artery stent, initial encounter; I25.10 Atherosclerotic heart disease of native coronary artery without angina pectoris; E87.2 Acidosis; I95.89 Other hypotension; E86.1 Hypovolemia; R19.7 Diarrhea, unspecified; E11.65 Type 2 diabetes mellitus with hyperglycemia; I10 Essential (primary) hypertension; Z66 Do not resuscitate; I44.0 Atrioventricular block, first degree; E03.9 Hypothyroidism, unspecified; E78.5 Hyperlipidemia, unspecified; R09.89 Other specified symptoms and signs involving the circulatory and respiratory systems; N28.9 Disorder of kidney and ureter, unspecified; Z95.5 Presence of coronary angioplasty implant and graft; Z86.711 Personal history of pulmonary embolism; Z86.718 Personal history of other venous thrombosis and embolism; Z87.891 Personal history of nicotine dependence; Z28.9 Immunization not carried out for unspecified reason; Z79.01 Long term (current) use of anticoagulants; Z85.51 Personal history of malignant neoplasm of bladder; Z86.010 Personal history of colon polyps; Z82.49 Family history of ischemic heart disease and other diseases of the circulatory system
CPT/HCPCS: 36415; 71045; 80048; 80053; 80061; 82962; 83605; 83735; 84100; 84484; 85025; 85610; 87040; 87081; 93005; 93306; 93458; 93880

== ENCOUNTER 2018-07-26 12:05 | Observation (INO) | payer MEDICARE, OTHER ==
[~2018-07-26] VITALS: Ht 190.5 cm; Wt 99.3 kg
[2018-07-26] VITALS (13 sets, daily range): BP systolic 130–144; BP diastolic 66–92
[~2018-07-26 12:05] MED LIST: ASPI-983 PO; ATOR40TA PO; CHLO4TAB PO; CLOP75TA28 PO; GLIP10TA13 PO; LEVO112T55 PO; METF-399 PO; PIOG30TA71 PO; SIMV80TA5 PO; SITA100T12 PO; TADA5TAB2 PO; WARF4TAB70 PO
[2018-07-26] MEDS ORDERED: NS IV 500 ML 500 ML IV SCH (12:41)
[2018-07-26] MEDS ORDERED: CATHETER FLUSH 10 ML SYR IV PRN ×2 (14:00)
[2018-07-26] MEDS ORDERED: METF-399 PO (14:16)
[2018-07-26] MEDS ORDERED: CLOP75TA69 PO (14:16)
[2018-07-26] MEDS ORDERED: ASPI-989 PO (14:16)
[2018-07-26] MEDS ORDERED: ATOR40TA70 PO (14:16)
[2018-07-26 14:17] LABS: BASOPHILS % (AUTO) 1 % (0-10); EOSINOPHILS # (AUTO) 0.1 10^3/uL (0.0-0.3); EOSINOPHILS % (AUTO) 2 % (0-10); HEMATOCRIT 28 % (40-54); HEMOGLOBIN 8.8 G/DL (13.3-17.7); LYMPHOCYTES % (AUTO) 28 % (12-44); MEAN CORPUSCULAR HEMOGLOBIN 27 PG (25-34); MEAN CORPUSCULAR HGB CONC 31 G/DL (32-36); MEAN CORPUSCULAR VOLUME 86 FL (80-99); MEAN PLATELET VOLUME 8.8 FL (7.4-10.4); MONOCYTES # (AUTO) 0.4 X 10^3 (0.0-1.0); MONOCYTES % (AUTO) 6 % (0-12); NEUTROPHILS # (AUTO) 4.7 X 10^3 (1.8-7.8); NEUTROPHILS % (AUTO) 65 % (42-75); PLATELET COUNT 361 10^3/uL (130-400); RED BLOOD COUNT 3.25 10^6/uL (4.35-5.85); RED CELL DISTRIBUTION WIDTH 14.1 % (10.0-14.5); WHITE BLOOD COUNT 7.3 10^3/uL (4.3-11.0)
[2018-07-26 14:26] LABS: INR 2.5 (0.8-1.4)
--- NOTE | 2018-07-26 14:29 | NUR ---
SPOKE WITH THE PATIENT ABOUT HIS MEDICATIONS. WE WENT OVER THE EXT MED HX WELL HIS LIST HE HAS WITH HIM. HE STATES NOTHING HAS CHANGED SINCE HIS LAST VISIT. WHEN HE WAS DISCHARGED IN [place] THE METFORMIN WAS DISCONTINUED HOWEVER HE STATES THAT WAS ONLY TO BE HELD FOR A FEW DAYS THEN RESUME, HE HAS RESUMED IT AT THIS TIME AND I ADDED IT BACK TO THE MED REC. REPORTED AT HIS LAST ADMISSION, HE TAKES THE CHLOR TRIMETON OTC AND RECEIVES HIS JANUVIA AND CIALIS FROM [facility].
[2018-07-26 14:32] LABS: ALANINE AMINOTRANSFERASE 11 U/L (0-55); ALBUMIN 3.9 GM/DL (3.2-4.5); ALKALINE PHOSPHATASE 56 U/L (40-136); BILIRUBIN,TOTAL 0.3 MG/DL (0.1-1.0); BUN/CREATININE RATIO 13; CARBON DIOXIDE 23 MMOL/L (21-32); CHLORIDE 103 MMOL/L (98-107); CREATININE SERUM 1.09 MG/DL (0.60-1.30); GFR ESTIMATED > 60; GLUCOSE 98 MG/DL (70-105); POTASSIUM 4.3 MMOL/L (3.6-5.0); SODIUM 134 MMOL/L (135-145); TOTAL PROTEIN 7.5 GM/DL (6.4-8.2)
[2018-07-26] MEDS: PANTOPRAZOLE 40 MG (PROTONIX) VIAL IV SCH (14:38)
--- NOTE | 2018-07-26 17:08 | Consultation-Cardiology ---
HPI-Cardiology Cardiology Consultation Date of Consultation 07/26/18 Date of Admission Time Seen by Provider: 17:09 Indication: Hypotension HPI 68 years old gentleman with recent hospitalization and PTCA to LAD and LCx, Anemia and syncope. went to [facility] due to severe hypotension, noted to have anemia, transferred for evaluation, receiving blood transfusion, has been noticing episodes of hypotension in the morning became worse today, no full syncope today but he felt dizzy and lightheaded and had some chest pain, feeling better at this point Home Medications & Allergies Allergies: Coded Allergies: No Allergy Information Available (Unverified , 07/04/18) Home Medication List Reviewed: Yes DBC-Ygewio-Vznqlx Hx Patient Social History Marital Status: Employed/Student: retired Type Used: Cigarettes Recent Hopitalizations: No Immunizations Up To Date Date of Influenza Vaccine: May 04, 2018 Past Medical History Discussed below Family Medical History Family Medical Hx Strong family history of atherosclerosis Review of Systems Constitutional: see HPI, malaise, weakness EENTM: see HPI, no symptoms reported Respiratory: see HPI; No cough, No dyspnea on exertion, No hemoptysis, No orthopnea, No phlegm, No short of breath, No stridor, No wheezing, No other Cardiovascular: no symptoms reported, see HPI, chest pain; No edema, No Hx of Intervention, No palpitations, No syncope, No vascular heart diseas, No other Gastrointestinal: no symptoms reported, see HPI Genitourinary: no symptoms reported, see HPI Musculoskeletal: no symptoms reported, see HPI Skin: no symptoms reported, see HPI Psychiatric/Neurological: No Symptoms Reported, See HPI Reviewed Test Results Reviewed Test Results Lab Laboratory Tests Test 07/26/18 14:00 Range/Units White Blood Count 7.3 4.3-11.0 10^3/uL Red Blood Count 3.25 L 4.35-5.85 10^6/uL Hemoglobin 8.8 L 13.3-17.7 G/DL Hematocrit 28 L 40-54 % Mean Corpuscular Volume 86 80-99 FL Mean Corpuscular Hemoglobin 27 25-34 PG Mean Corpuscular Hemoglobin Concent 31 L 32-36 G/DL Red Cell Distribution Width 14.1 10.0-14.5 % Platelet Count 361 130-400 10^3/uL Mean Platelet Volume 8.8 7.4-10.4 FL Neutrophils (%) (Auto) 65 42-75 % Lymphocytes (%) (Auto) 28 12-44 % Monocytes (%) (Auto) 6 0-12 % Eosinophils (%) (Auto) 2 0-10 % Basophils (%) (Auto) 1 0-10 % Neutrophils # (Auto) 4.7 1.8-7.8 X 10^3 Lymphocytes # (Auto) 2.0 1.0-4.0 X 10^3 Monocytes # (Auto) 0.4 0.0-1.0 X 10^3 Eosinophils # (Auto) 0.1 0.0-0.3 10^3/uL Basophils # (Auto) 0.0 0.0-0.1 10^3/uL Prothrombin Time 27.0 H 12.2-14.7 SEC INR Comment 2.5 H 0.8-1.4 Sodium Level 134 L 135-145 MMOL/L Potassium Level 4.3 3.6-5.0 MMOL/L Chloride Level 103 98-107 MMOL/L Carbon Dioxide Level 23 21-32 MMOL/L Anion Gap 8 5-14 MMOL/L Blood Urea Nitrogen 14 7-18 MG/DL Creatinine 1.09 0.60-1.30 MG/DL Estimat Glomerular Filtration Rate > 60 BUN/Creatinine Ratio 13 Glucose Level 98 70-105 MG/DL Calcium Level 9.0 8.5-10.1 MG/DL Corrected Calcium 9.1 8.5-10.1 MG/DL Total Bilirubin 0.3 0.1-1.0 MG/DL Aspartate Amino Transf (AST/SGOT) 15 5-34 U/L Alanine Aminotransferase (ALT/SGPT) 11 0-55 U/L Alkaline Phosphatase 56 40-136 U/L Total Protein 7.5 6.4-8.2 GM/DL Albumin 3.9 3.2-4.5 GM/DL Physical Exam Vital Signs Vital Signs - First Documented 07/26/18 16:07 Temp 96.8 Capillary Refill : Height, Weight, BMI Height: 6'3.00" Weight: 245lbs. 3.0oz. [id number]; 28.9 BMI Method: General Appearance: No Apparent Distress, WD/WN Eyes: Bilateral Eye Normal Inspection, Bilateral Eye PERRL, Bilateral Eye EOMI HEENT: PERRL/EOMI, TMs Normal, Normal ENT Inspection, Pharynx Normal Neck: Full Range of Motion, Normal Inspection, Non Tender, Supple, Carotid Bruit Respiratory: Chest Non Tender, Lungs Clear, Normal Breath Sounds, No Accessory Muscle Use, No Respiratory Distress Cardiovascular: Regular Rate, Rhythm, No Edema, No Gallop, No JVD, No Murmur, Normal Peripheral Pulses Gastrointestinal: Normal Bowel Sounds, No Organomegaly, No Pulsatile Mass, Non Tender, Soft Back: Normal Inspection, No CVA Tenderness, No Vertebral Tenderness Extremity: Normal Capillary Refill, Normal Inspection, Normal Range of Motion, Non Tender, No Calf Tenderness, No Pedal Edema Neurologic/Psychiatric: Alert, Oriented x3, No Motor/Sensory Deficits, Normal Mood/Affect Skin: Normal Color, Warm/Dry Lymphatic: No Adenopathy A/P-Cardiology Admission Diagnosis Syncope Hypotension Coronary artery disease Hyperlipidemia Assessment/Plan Syncope, orthostatic hypotension, probably secondary to anemia, hypovolemia and Cialis, he is receiving blood transfusion, IVF and will stop Cialis and monitor Anemia, chronic, heme occult positive, and will need evaluation for bleeding 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 Severe proximal circumflex artery stenosis successful balloon angioplasty with excellent results. I was unable to advance stent to that area due to the angle of the origin of the circumflex artery, Need Aspirin and Plavix for at least 3 more weeks and preferably 6 months if he can tolerate it Diabetes mellitus, followed and managed by primary care physician Hyperlipidemia maintained on Statin, continue to monitor Carotid bruit noted on the left side. Planning to evaluate carotid ultrasound Hypotension, better after receiving IV fluid, continue to monitor blood pressure History of bladder cancer. Currently in remission, Consider Hematology/ Oncology consult Hypothyroidism, followed and managed by primary care physician History of colon polypectomy done in 2008 Strong family history of heart disease with multiple family members with heart attack and bypass surgeries TAVON SUGGS MD Jul 26, 2018 17:08
[2018-07-26 18:45] LABS: HEMOGLOBIN 9.2 G/DL (13.3-17.7)
--- NOTE | 2018-07-26 20:49 | Consultation ---
History of Present Illness History of Present Illness Patient Consulted On(ijm/time) 07/26/18 16:43 Date Seen by Provider: Jul 26, 2018 Time Seen by Provider: 16:43 Reason for Visit: Hypotension History of Present Illness consult requested by Dr. Dempsey for Hemoccult positive anemia. Patient is a 68-year-old male transferred from outlying emergency room. Patient states that he's been having episodes of hypotension and syncope typically in the mornings after eating breakfast. Patient states that this is been getting worse and the worst being today so he went to the emergency department for further evaluation. Patient recently had cardiac intervention with angioplasty. Patient systolic blood pressure had dropped down into the 70s systolic. Patient has not noticed any blood in his stool. Short period before this hospitalization he did have some diarrhea but now he is more on the constipation side. He had a colonoscopy 2 years ago and has a history of colon polyps. Patient denies any abdominal pain. Currently receiving packed red blood cells. Nausea vomiting fever sweats chills shortness of breath or chest pain. Allergies and Home Medications Allergies Coded Allergies: No Allergy Information Available (Unverified , 07/04/18) Home Medications Aspirin 81 Mg Tablet.dr, 81 MG PO DAILY, (Reported) Atorvastatin Calcium 40 Mg Tablet, 40 MG PO HS, (Reported) Chlorpheniramine Maleate 4 Mg Tablet, 4 MG PO DAILY, (Reported) Chlorpheniramine Maleate 4 Mg Tablet, 4 MG PO BID PRN for DRAINAGE, (Reported) Clopidogrel Bisulfate 75 Mg Tablet, 75 MG PO HS, (Reported) Glipizide 10 Mg Tablet, 10 MG PO BID, (Reported) Levothyroxine Sodium 112 Mcg Tablet, 112 MCG PO DAILY, (Reported) Metformin HCl 1,000 Mg Tablet, 1,000 MG PO BID, (Reported) Pioglitazone HCl 30 Mg Tablet, 30 MG PO HS, (Reported) Sitagliptin Phosphate 100 Mg Tablet, 100 MG PO DAILY, (Reported) Tadalafil 5 Mg Tablet, 5 MG PO DAILY, (Reported) Warfarin Sodium 4 Mg Tablet, 8 MG PO MoWe, (Reported) TAKES 2 (4MG) TABLETS Warfarin Sodium 4 Mg Tablet, 4 MG PO SuTuThFrSa, (Reported) Patient Home Medication List Home Medication List Reviewed: Yes Past Kefpxxo-Hqsvxn-Gmslbd Hx Patient Social History Alcohol Use: Denies Use Recreational Drug Use: No Former Smoker, Quit: Jul 04, 1980 Type Used: Cigarettes Recent Foreign Travel: No Contact w/Someone Who Travel: No Recent Infectious Disease Expo: No Recent Hopitalizations: No Physical Abuse Screen: No Sexual Abuse: No Immunizations Up To Date Date of Pneumonia Vaccine: Jul 26, 2016 Date of Influenza Vaccine: May 04, 2018 Seasonal Allergies Seasonal Allergies: No Surgeries History of Surgeries: Yes Respiratory History of Respiratory Disorde: No Cardiovascular History of Cardiac Disorders: Yes (stents in 1996) Neurological History of Neurological Disord: No Genitourinary History of Genitourinary Disor: Yes (bladder cancer in past) Gastrointestinal History of Gastrointestinal Di: No Musculoskeletal History of Musculoskeletal Dis: No HEENT History of HEENT Disorders: Yes HEENT Disorders: Cataract Hearing Impairment: Denies Cancer History of Cancer: Yes Cancer: Bladder Psychosocial History of Psychiatric Problem: No Integumentary History of Skin or Integumenta: Yes Skin/Integumentary Disorders: Psoriasis Blood Transfusions History of Blood Disorders: No Adverse Reaction to a Blood Tr: No Family Medical History Significant Family History: CAD Over 55 Years Old Review of Systems-General Constitutional: see HPI EENTM: no symptoms reported Respiratory: no symptoms reported Cardiovascular: see HPI Gastrointestinal: see HPI Genitourinary: no symptoms reported Musculoskeletal: no symptoms reported Skin: no symptoms reported Psychiatric/Neurological: No Symptoms Reported Physical Exam-General Problems Physical Exam Vital Signs Vital Signs - First Documented 07/26/18 16:07 Temp 96.8 Capillary Refill : General Appearance: WD/WN, no apparent distress HEENT: PERRL/EOMI, normal ENT inspection Neck: non-tender, full range of motion, supple Respiratory: chest non-tender, no respiratory distress, no accessory muscle use Cardiovascular: regular rate, rhythm Gastrointestinal: non tender, soft, no organomegaly, no pulsatile mass Rectal: deferred Back: no vertebral tenderness Extremities: non-tender, no calf tenderness Neurologic/Psychiatric: field inspector II-XII nml as tested, no motor/sensory deficits, alert, normal mood/affect, oriented x 3 Skin: normal color, warm/dry Lymphatic: no adenopathy Data Review Labs Laboratory Tests 07/26/18 14:00: White Blood Count 7.3, Red Blood Count 3.25L, Hemoglobin 8.8L, Hematocrit 28L, Mean Corpuscular Volume 86, Mean Corpuscular Hemoglobin 27, Mean Corpuscular Hemoglobin Concent 31L, Red Cell Distribution Width 14.1, Platelet Count 361, Mean Platelet Volume 8.8, Neutrophils (%) (Auto) 65, Lymphocytes (%) (Auto) 28, Monocytes (%) (Auto) 6, Eosinophils (%) (Auto) 2, Basophils (%) (Auto) 1, Neutrophils # (Auto) 4.7, Lymphocytes # (Auto) 2.0, Monocytes # (Auto) 0.4, Eosinophils # (Auto) 0.1, Basophils # (Auto) 0.0, Prothrombin Time 27.0H, INR Comment 2.5H, Sodium Level 134L, Potassium Level 4.3, Chloride Level 103, Carbon Dioxide Level 23, Anion Gap 8, Blood Urea Nitrogen 14, Creatinine 1.09, Estimat Glomerular Filtration Rate > 60, BUN/Creatinine Ratio 13, Glucose Level 98, Calcium Level 9.0, Corrected Calcium 9.1, Total Bilirubin 0.3, Aspartate Amino Transf (AST/SGOT) 15, Alanine Aminotransferase (ALT/SGPT) 11, Alkaline Phosphatase 56, Total Protein 7.5, Albumin 3.9 07/26/18 18:40: Hemoglobin 9.2L, Hematocrit 28L Assessment/Plan Assessment/Plan Assessment/Plan hypotension, anemia, coronary artery disease, history of pulmonary embolism, history of colon polyps, occult positive stool Patient with occult positive stool and hemoglobin only slight drop compared to previous hospitalization. He is on Plavix and aspirin and Coumadin. Patient also taking Cialis on a daily basis. Patient is having these episodes of hypotension typically after taking medications in the morning when he takes the Cialis. Hypotension could be secondary to this this has been stopped and we'll see if he continues to have hypotension. I discussed with Dr. Melchor doing endoscopy which with recent cardiac intervention it would be safest to wait unless have emergent need. Patient on Protonix currently. He is nothing by mouth at this time. Patient will have hemoglobin followed. If he does continue to drop would do EGD and if no source found would then do then plan colonoscopy. if not needed emergently would perform once could stop antiplatelet therapy and Coumadin. Patient is in agreement with plan. No surgical intervention at this time we'll follow. Clinical Quality Measures DVT/VTE Risk/Contraindication: Risk Factor Score Per Nursin RFS Level Per Nursing on Admit: 2=Moderate SRIKANTH AGUILAR DO Jul 26, 2018 20:49
[2018-07-26] MEDS: inSUlin ASPART (NovoLOG) 1 UNIT/0.01 ML (CHARGE PER UNIT) SC SCH (21:34)
[2018-07-27] VITALS (14 sets, daily range): BP systolic 119–147; BP diastolic 59–72
[2018-07-27 04:16] LABS: BASOPHILS % (AUTO) 0 % (0-10); EOSINOPHILS # (AUTO) 0.2 10^3/uL (0.0-0.3); EOSINOPHILS % (AUTO) 2 % (0-10); HEMATOCRIT 28 % (40-54); HEMOGLOBIN 8.9 G/DL (13.3-17.7); LYMPHOCYTES # (AUTO) 2.3 X 10^3 (1.0-4.0); LYMPHOCYTES % (AUTO) 36 % (12-44); MEAN CORPUSCULAR HEMOGLOBIN 27 PG (25-34); MEAN CORPUSCULAR HGB CONC 32 G/DL (32-36); MEAN CORPUSCULAR VOLUME 85 FL (80-99); MEAN PLATELET VOLUME 9.3 FL (7.4-10.4); MONOCYTES # (AUTO) 0.5 X 10^3 (0.0-1.0); MONOCYTES % (AUTO) 8 % (0-12); NEUTROPHILS # (AUTO) 3.4 X 10^3 (1.8-7.8); NEUTROPHILS % (AUTO) 54 % (42-75); PLATELET COUNT 306 10^3/uL (130-400); RED BLOOD COUNT 3.25 10^6/uL (4.35-5.85); WHITE BLOOD COUNT 6.4 10^3/uL (4.3-11.0)
--- NOTE | 2018-07-27 04:25 | Pulmonary History & Physicial ---
History of Present Illness History of Present Illness Date of Consultation 07/27/18 04:20 Time Seen by Provider: 04:20 Date of Admission 07/26/18 Reason for Visit: Hypotension History of Present Illness 68 y/o M presented to the [place] ED for morning hypotension that had been occurring for multiple days. His SBP had been in the 70s sometimes. He also has a known history of anemia of unknown source. He had been dizzy, light headed, and had some chest pain. He did note some constipation but know stool blood. His last colonoscopy was 2 years ago and showed some colon polyps. He has a significant heart history of stents to the LAD and Lt circumflex recently. Upon admission, his hct and hb were 8.8/9.2 respectively; he got 1 bag of packed RBCs due to symptoms and hypotension, which increased his H/H to 9.2/28. He also had a positive heme occult blood. EGD was held due to recent heart cath/ procedure. He does take coumadin, plavix, and aspirin. He also takes tadalafil in the mornings. Allergies and Home Medications Allergies Coded Allergies: No Allergy Information Available (Unverified , 07/04/18) Home Medications Aspirin 81 Mg Tablet.dr, 81 MG PO DAILY, (Reported) Atorvastatin Calcium 40 Mg Tablet, 40 MG PO HS, (Reported) Chlorpheniramine Maleate 4 Mg Tablet, 4 MG PO DAILY, (Reported) Chlorpheniramine Maleate 4 Mg Tablet, 4 MG PO BID PRN for DRAINAGE, (Reported) Clopidogrel Bisulfate 75 Mg Tablet, 75 MG PO HS, (Reported) Glipizide 10 Mg Tablet, 10 MG PO BID, (Reported) Levothyroxine Sodium 112 Mcg Tablet, 112 MCG PO DAILY, (Reported) Metformin HCl 1,000 Mg Tablet, 1,000 MG PO BID, (Reported) Pioglitazone HCl 30 Mg Tablet, 30 MG PO HS, (Reported) Sitagliptin Phosphate 100 Mg Tablet, 100 MG PO DAILY, (Reported) Tadalafil 5 Mg Tablet, 5 MG PO DAILY, (Reported) Warfarin Sodium 4 Mg Tablet, 8 MG PO MoWe, (Reported) TAKES 2 (4MG) TABLETS Warfarin Sodium 4 Mg Tablet, 4 MG PO SuTuThFrSa, (Reported) Past Scivkxd-Ztmhgd-[place] Hx Patient Social History Alcohol Use: Denies Use Alcohol Beverage of Choice: [place] Recreational Drug Use: No Type Used: Cigarettes Former Smoker, Quit: Jul 04, 1980 Recent Foreign Travel: No Contact w/Someone Who Travel: No Recent Infectious Disease Expo: No Recent Hopitalizations: No Immunizations Up To Date Date of Pneumonia Vaccine: Jul 26, 2016 Date of Influenza Vaccine: May 04, 2018 Seasonal Allergies Seasonal Allergies: No Past Medical History Surgeries: Yes Respiratory: No Currently Using CPAP: No Currently Using BIPAP: No Cardiac: Yes (stents in 1996) Neurological: No Genitourinary: Yes (bladder cancer in past) Gastrointestinal: No Musculoskeletal: No HEENT: Yes Cataract Hearing Impairment: Denies Cancer: Yes Bladder Did You Recieve Any Treatments: Yes What Type of Treatment Did You: Surgical Intervention Psychosocial: No Integumentary: Yes Psoriasis Blood Disorders: No Adverse Reaction/Blood Tranf: No Family Medical History CAD Over 55 Years Old Exam Exam Vital Signs Date Time Temp Pulse Resp B/P (MAP) Pulse Ox O2 Delivery O2 Flow Rate FiO2 07/27/18 03:00 94 9 123/68 (86) 94 Room Air 07/27/18 02:00 80 8 132/71 (91) 95 Room Air 07/27/18 01:00 82 07/27/18 01:00 82 9 119/69 (86) 94 Room Air 07/27/18 00:00 98 Room Air 07/27/18 00:00 87 9 126/61 (82) 92 Room Air 07/27/18 00:00 97.2 07/26/18 23:00 82 8 132/67 (88) 94 Room Air 07/26/18 22:15 85 10 142/80 (100) 96 Room Air 07/26/18 21:00 85 10 141/79 (99) 96 Room Air 07/26/18 20:00 82 11 144/78 (100) 98 Room Air 07/26/18 20:00 98 Room Air 07/26/18 19:00 97.9 81 16 138/75 (96) 99 Room Air 07/26/18 19:00 82 07/26/18 18:19 96.9 87 16 141/75 98 Room Air 07/26/18 18:00 87 10 141/75 (97) 96 Room Air 07/26/18 17:00 75 13 130/83 (99) 100 Room Air 07/26/18 16:45 79 12 135/74 (94) 100 Room Air 07/26/18 16:30 79 13 141/66 (91) 99 Room Air 07/26/18 16:24 97.0 80 16 141/66 99 Room Air 07/26/18 16:07 96.8 84 15 137/92 99 Room Air 07/26/18 16:00 98 Room Air 07/26/18 14:00 99 Room Air 07/26/18 13:45 82 07/26/18 13:45 82 9 137/92 (107) 100 Room Air I & O 07/27/18 07:00 Intake Total 600 ml Output Total 1375 ml Balance -775 ml Height & Weight Height: 6'3.00" Weight: 211lbs. 0.0oz. [id number]; 26.4 BMI Method: General Appearance: No Apparent Distress, WD/WN HEENT: PERRL/EOMI, TMs Normal, Normal ENT Inspection, Pharynx Normal Neck: Full Range of Motion, Normal Inspection, Non Tender, Supple, Carotid Bruit Respiratory: Chest Non Tender, Lungs Clear, Normal Breath Sounds, No Accessory Muscle Use, No Respiratory Distress Cardiovascular: Regular Rate, Rhythm, No Edema, No Gallop, No JVD, No Murmur, Normal Peripheral Pulses Gastrointestinal: non tender, soft, no organomegaly, no pulsatile mass Extremity: Normal Capillary Refill, Normal Inspection, Normal Range of Motion, Non Tender, No Calf Tenderness, No Pedal Edema Neurologic/Psychiatric: Alert, Oriented x3, No Motor/Sensory Deficits, Normal Mood/Affect Skin: Normal Color, Warm/Dry Lymphatic: No Adenopathy Results Lab Laboratory Tests 07/26/18 14:00 07/26/18 18:40 Assessment/Plan Assessment/Plan Admission Dx Anemia - H/H 8.8/28 on admission and improved to 9.2/28 with 1 bag of PRBCs - heme occult positive; last colonoscopy was 2 years ago and EGD held due to recent procedure - Hold home coumadin, plavix, and aspirin - Continue to monitor Hypotension - Ddx: anemia vs. tadalafil medication use vs. orthostatic hypotension - Blood pressures have been >110s/65s thus far - Monitor vitals and symptoms - Hold tadalafil Syncope - Likely secondary to hypotension/orthostasis Anticoagulant use -INR therapeutic at 2.5 - History of DVT and PE >10 years ago - Consider stopping coumadin completely - Needs to continue aspirin and plavix for 3 more weeks to [address] Melchor for ballooning of stenosis on 07/06/18 Hyponatremia - Monitor Diabetes mellitus - Continue home regimen - Monitor blood sugars Hyperlipidemia -statin, continue to monitor History of bladder cancer Hypothyroidism - continue home medications JUAN DIEGO MURPHY STUDENT Jul 27, 2018 04:25
[2018-07-27 04:45] LABS: ALANINE AMINOTRANSFERASE 11 U/L (0-55); ALBUMIN 3.4 GM/DL (3.2-4.5); ALKALINE PHOSPHATASE 54 U/L (40-136); BILIRUBIN,TOTAL 0.4 MG/DL (0.1-1.0); BUN/CREATININE RATIO 13; CALCIUM 8.7 MG/DL (8.5-10.1); CARBON DIOXIDE 22 MMOL/L (21-32); CHLORIDE 105 MMOL/L (98-107); CREATININE SERUM 1.04 MG/DL (0.60-1.30); GFR ESTIMATED > 60; GLUCOSE 98 MG/DL (70-105); MAGNESIUM 1.6 MG/DL (1.8-2.4); PHOSPHORUS 3.6 MG/DL (2.3-4.7); SODIUM 135 MMOL/L (135-145); TOTAL PROTEIN 6.6 GM/DL (6.4-8.2)
[2018-07-27] MEDS: inSUlin ASPART (NovoLOG) 1 UNIT/0.01 ML (CHARGE PER UNIT) SC SCH ×4 (04:53→20:45)
[2018-07-27] MEDS: MAGNESIUM 1 GM/100 ML IVPB 100 ML IV SCH ×3 (05:05→06:06)
--- NOTE | 2018-07-27 05:10 | Pulmonary Consultation ---
History of Present Illness History of Present Illness Date of Consultation 07/26/18 1700 THIS IS A LATE NOTE. PT WAS SEEN ON 07/26/18 Time Seen by Provider: 17:00 Date of Admission Reason for Visit: Hypotension History of Present Illness 68 yo with hx of colon polyps, DM, bladder cancer, and DVT tx'd with coumadin directly admitted from [facility] ED secondary to hypotension SBP 70's and GIB. Pt went to ED secondary to dizziness, CP that started over the last couple weeks. Denies BRBPR however at [facility] he was found to have a positive FOB. Hb found to be 8.8. He denies ever needing a transfusion. He did get transfused 1 unit of PRBC secondary to anemia and hypotension. Pt is on coumadin, plavix, and ASA. I am consulted for ICU management. Allergies and Home Medications Allergies Coded Allergies: No Allergy Information Available (Unverified , 07/04/18) Home Medications Aspirin 81 Mg Tablet.dr, 81 MG PO DAILY, (Reported) Atorvastatin Calcium 40 Mg Tablet, 40 MG PO HS, (Reported) Chlorpheniramine Maleate 4 Mg Tablet, 4 MG PO DAILY, (Reported) Chlorpheniramine Maleate 4 Mg Tablet, 4 MG PO BID PRN for DRAINAGE, (Reported) Clopidogrel Bisulfate 75 Mg Tablet, 75 MG PO HS, (Reported) Glipizide 10 Mg Tablet, 10 MG PO BID, (Reported) Levothyroxine Sodium 112 Mcg Tablet, 112 MCG PO DAILY, (Reported) Metformin HCl 1,000 Mg Tablet, 1,000 MG PO BID, (Reported) Pioglitazone HCl 30 Mg Tablet, 30 MG PO HS, (Reported) Sitagliptin Phosphate 100 Mg Tablet, 100 MG PO DAILY, (Reported) Tadalafil 5 Mg Tablet, 5 MG PO DAILY, (Reported) Warfarin Sodium 4 Mg Tablet, 8 MG PO MoWe, (Reported) TAKES 2 (4MG) TABLETS Warfarin Sodium 4 Mg Tablet, 4 MG PO SuTuThFrSa, (Reported) Past [id number]-Ayjgjp Hx Patient Social History Alcohol Use: Denies Use Alcohol Beverage of Choice: [place] Recreational Drug Use: No Type Used: Cigarettes Former Smoker, Quit: Jul 04, 1980 Recent Foreign Travel: No Contact w/Someone Who Travel: No Recent Infectious Disease Expo: No Recent Hopitalizations: No Immunizations Up To Date Date of Pneumonia Vaccine: Jul 26, 2016 Date of Influenza Vaccine: May 04, 2018 Seasonal Allergies Seasonal Allergies: No Past Medical History Surgeries: Yes Respiratory: No Currently Using CPAP: No Currently Using BIPAP: No Cardiac: Yes (stents in 1996) Neurological: No Genitourinary: Yes (bladder cancer in past) Gastrointestinal: No Musculoskeletal: No HEENT: Yes Cataract Hearing Impairment: Denies Cancer: Yes Bladder Did You Recieve Any Treatments: Yes What Type of Treatment Did You: Surgical Intervention Psychosocial: No Integumentary: Yes Psoriasis Blood Disorders: No Adverse Reaction/Blood Tranf: No Family Medical History CAD Over 55 Years Old Sepsis Event Evaluation Height, Weight, BMI Height: 6'3.00" Weight: 211lbs. 0.0oz. 95.235199dk; 26.4 BMI Method: Exam Exam Vital Signs Date Time Temp Pulse Resp B/P (MAP) Pulse Ox O2 Delivery O2 Flow Rate FiO2 07/27/18 04:00 98 Room Air 07/27/18 04:00 98.0 89 14 134/66 (88) 95 Room Air 07/27/18 03:00 94 9 123/68 (86) 94 Room Air 07/27/18 02:00 80 8 132/71 (91) 95 Room Air 07/27/18 01:00 82 07/27/18 01:00 82 9 119/69 (86) 94 Room Air 07/27/18 00:00 98 Room Air 07/27/18 00:00 87 9 126/61 (82) 92 Room Air 07/27/18 00:00 97.2 07/26/18 23:00 82 8 132/67 (88) 94 Room Air 07/26/18 22:15 85 10 142/80 (100) 96 Room Air 07/26/18 21:00 85 10 141/79 (99) 96 Room Air 07/26/18 20:00 82 11 144/78 (100) 98 Room Air 07/26/18 20:00 98 Room Air 07/26/18 19:00 97.9 81 16 138/75 (96) 99 Room Air 07/26/18 19:00 82 07/26/18 18:19 96.9 87 16 141/75 98 Room Air 07/26/18 18:00 87 10 141/75 (97) 96 Room Air 07/26/18 17:00 75 13 130/83 (99) 100 Room Air 07/26/18 16:45 79 12 135/74 (94) 100 Room Air 07/26/18 16:30 79 13 141/66 (91) 99 Room Air 07/26/18 16:24 97.0 80 16 141/66 99 Room Air 07/26/18 16:07 96.8 84 15 137/92 99 Room Air 07/26/18 16:00 98 Room Air 07/26/18 14:00 99 Room Air 07/26/18 13:45 82 07/26/18 13:45 82 9 137/92 (107) 100 Room Air I & O 07/27/18 07:00 Intake Total 600 ml Output Total 1375 ml Balance -775 ml Height & Weight Height: 6'3.00" Weight: 211lbs. 0.0oz. 95.101824wi; 26.4 BMI Method: General Appearance: No Apparent Distress, WD/WN HEENT: PERRL/EOMI, TMs Normal, Normal ENT Inspection, Pharynx Normal Neck: Full Range of Motion, Normal Inspection, Non Tender, Supple, Carotid Bruit Respiratory: Chest Non Tender, Lungs Clear, Normal Breath Sounds, No Accessory Muscle Use, No Respiratory Distress Cardiovascular: Regular Rate, Rhythm, No Edema, No Gallop, No JVD, No Murmur, Normal Peripheral Pulses Gastrointestinal: non tender, soft, no organomegaly, no pulsatile mass Extremity: Normal Capillary Refill, Normal Inspection, Normal Range of Motion, Non Tender, No Calf Tenderness, No Pedal Edema Neurologic/Psychiatric: Alert, Oriented x3, No Motor/Sensory Deficits, Normal Mood/Affect Skin: Normal Color, Warm/Dry Lymphatic: No Adenopathy Results Lab Laboratory Tests 07/26/18 14:00 07/26/18 18:40 07/27/18 03:15 Assessment/Plan Assessment/Plan Acute GIB s/p transfusion of 1 unit PRBC -Monitor H&H -Surgery consulted Coumadin coagulopathy -Coumadin on hold Hypomagnesemia -Replace Hypotension - resolved Hx of DVT - dx 10yrs ago which was his only DVT hx -Coumadin is on hold CAD with last stent placement 07/06/18 -plavix and ASA currently on hold -Cardiology is consulted ZAHRA BLOUNT DO Jul 27, 2018 05:10
--- NOTE | 2018-07-27 05:23 | Pulmonary Progress Note ---
Subjective Time Seen by a Provider: 06:04 Subjective/Events-last exam PT feels improved today. No complications noted. Sepsis Event Evaluation Height, Weight, BMI Height: 6'3.00" Weight: 222lbs. 0.0oz. 100.875464qi; 26.4 BMI Method: Exam Exam Vital Signs Date Time Temp Pulse Resp B/P (MAP) Pulse Ox O2 Delivery O2 Flow Rate FiO2 07/27/18 05:00 85 10 132/72 (92) 95 Room Air 07/27/18 04:00 98 Room Air 07/27/18 04:00 98.0 89 14 134/66 (88) 95 Room Air 07/27/18 03:00 94 9 123/68 (86) 94 Room Air 07/27/18 02:00 80 8 132/71 (91) 95 Room Air 07/27/18 01:00 82 07/27/18 01:00 82 9 119/69 (86) 94 Room Air 07/27/18 00:00 98 Room Air 07/27/18 00:00 87 9 126/61 (82) 92 Room Air 07/27/18 00:00 97.2 07/26/18 23:00 82 8 132/67 (88) 94 Room Air 07/26/18 22:15 85 10 142/80 (100) 96 Room Air 07/26/18 21:00 85 10 141/79 (99) 96 Room Air 07/26/18 20:00 82 11 144/78 (100) 98 Room Air 07/26/18 20:00 98 Room Air 07/26/18 19:00 97.9 81 16 138/75 (96) 99 Room Air 07/26/18 19:00 82 07/26/18 18:19 96.9 87 16 141/75 98 Room Air 07/26/18 18:00 87 10 141/75 (97) 96 Room Air 07/26/18 17:00 75 13 130/83 (99) 100 Room Air 07/26/18 16:45 79 12 135/74 (94) 100 Room Air 07/26/18 16:30 79 13 141/66 (91) 99 Room Air 07/26/18 16:24 97.0 80 16 141/66 99 Room Air 07/26/18 16:07 96.8 84 15 137/92 99 Room Air 07/26/18 16:00 98 Room Air 07/26/18 14:00 99 Room Air 07/26/18 13:45 82 07/26/18 13:45 82 9 137/92 (107) 100 Room Air I & O 07/27/18 07:00 Intake Total 600 ml Output Total 1875 ml Balance -1275 ml Height & Weight Height: 6'3.00" Weight: 222lbs. 0.0oz. 100.576754dw; 26.4 BMI Method: General Appearance: No Apparent Distress, WD/WN HEENT: PERRL/EOMI, TMs Normal, Normal ENT Inspection, Pharynx Normal Neck: Full Range of Motion, Normal Inspection, Non Tender, Supple, Carotid Bruit Respiratory: Chest Non Tender, Lungs Clear, Normal Breath Sounds, No Accessory Muscle Use, No Respiratory Distress Cardiovascular: Regular Rate, Rhythm, No Edema, No Gallop, No JVD, No Murmur, Normal Peripheral Pulses Gastrointestinal: non tender, soft, no organomegaly, no pulsatile mass Extremity: Normal Capillary Refill, Normal Inspection, Normal Range of Motion, Non Tender, No Calf Tenderness, No Pedal Edema Neurologic/Psychiatric: Alert, Oriented x3, No Motor/Sensory Deficits, Normal Mood/Affect Skin: Normal Color, Warm/Dry Lymphatic: No Adenopathy Results Lab Laboratory Tests 07/26/18 14:00 07/26/18 18:40 07/27/18 03:15 Assessment/Plan Assessment/Plan Acute GIB s/p transfusion of 1 unit PRBC -Continue to monitor H&H -Surgery consulted Hx of DVT - dx 10yrs ago which was his only DVT hx. -Coumadin is on hold -Gerard considering pt needs plavix for recent cardiac stent I recommend D/Cing Coumadin and not restarting unless another issue arises. Hx of bladder cancer- currently in remission Coumadin coagulopathy -Coumadin on hold -Give 5mg of Vit K PO -Repeat PT/INR. Hypomagnesemia -Replace Hypotension - resolved CAD with last stent placement 07/06/18 -plavix and ASA currently on hold -Cardiology is consulted Will transfer pt to 4th floor and continue to monitor close. ZAHRA BLOUNT DO Jul 27, 2018 05:23
[2018-07-27] MEDS ORDERED: MAGNESIUM 1 GM/100 ML IVPB 100 ML IV SCH (06:00)
[2018-07-27] MEDS ORDERED: POTASSIUM CL 10MEQ/50ML IVPB 50 ML IV SCH (06:00)
[2018-07-27] MEDS ORDERED: KCL 20 MEQ TAB (K-DUR) PO SCH (06:00)
[2018-07-27] MEDS ORDERED: VITAMIN K 1 MG/ML ORAL SOLN 1 ML SYRINGE PO ONE (06:15)
[2018-07-27 06:41] LABS: INR 2.2 (0.8-1.4); PROTHROMBIN TIME PATIENT 24.4 SEC (12.2-14.7)
--- NOTE | 2018-07-27 07:10 | Diagnostic Imaging Report ---
Indication: GI bleeding Portable chest 4:14 AM Heart size and pulmonary vascularity are normal. Lungs are clear. There are no effusions or pneumothoraces. Impression: Negative chest. Dictated by: Dictated on workstation # [id number]
[2018-07-27] MEDS: PANTOPRAZOLE 40 MG (PROTONIX) VIAL IV SCH (08:04)
--- NOTE | 2018-07-27 10:20 | Cardiology Progress Note ---
Subjective Date Seen by Provider: Jul 27, 2018 Time Seen by Provider: 10:19 Subjective/Events-last exam patient is doing well, was able to walk around ICU without hypotensive episodes since his stopped his Cialis and received one unit of blood transfusion Review of Systems General: No Chills, No Night Sweats, No Fatigue, No Malaise, No Appetite, No Other HEENT: No Head Aches, No Visual Changes, No Eye Pain, No Ear Pain, No Dysphasia , No Sinus Congestion, No Post Nasal Drip, No Sore Throat, No Other Pulmonary: No Dyspnea, No Cough, No Pleuritic Chest Pain, No Other Cardiovascular: No: Chest Pain, Palpitations, Orthopnea, Paroxysmal Noc. Dyspnea, Edema, Lt Headedness, Other Objective-Cardiology Exam Last Set of Vital Signs Vital Signs 07/27/18 07/27/18 08:00 09:00 Temp 97.7 Pulse 81 Resp 10 B/P (MAP) 139/72 (94) Pulse Ox 95 O2 Delivery Room Air Capillary Refill : I&O Intake and Output 07/27/18 00:00 Intake Total 600 ml Output Total 1375 ml Balance -775 ml Intake Oral 600 ml Output Urine Total 1375 ml Daily Weight Change No General: Alert, Oriented X3, Cooperative HEENT: Atraumatic, PERRLA Neck: Supple, No JVD, No Thyromegaly Lungs: Clear to Auscultation, Normal Air Movement Heart: Regular Rate, Normal S1, Normal S2, No Murmurs Abdomen: Normal Bowel Sounds, Soft, No Tenderness, No Hepatosplenomegaly, No Masses Extremities: No Clubbing, No Cyanosis, No Edema, Normal Pulses, No Tenderness/ Swelling Skin: No Rashes, No Breakdown, No Significant Lesion Neuro: Normal Gait, Normal Speech, Strength at 5/5 X4 Ext, Normal Tone, Sensation Intact Psych/Mental Status: Mental Status NL, Mood NL Results Lab Laboratory Tests 07/26/18 14:00 07/26/18 18:40 07/27/18 03:15 A/P-Cardiology Admission Diagnosis Syncope Hypotension Coronary artery disease Hyperlipidemia Assessment/Plan Syncope, orthostatic hypotension, probably secondary to anemia, hypovolemia and Cialis, better today. Stay off Cialis and restart aspirin and Plavix. Anemia, chronic, heme occult positive, received one unit of packed RBCs, monitor and possible endoscopy as an outpatient History of DVT and one episode of PE in the past and has been on coumadin for over 10 years, I agree with stopping Coumadin at this point and monitoring as an outpatient Status post non-ST elevation myocardial infarction, history of coronary artery disease, 2 stents placed in the late , cardiac catheterization was done in July 06, 2018 with Severe in-stent restenosis in the proximal and mid LAD, successful balloon angioplasty with multiple inflation at high pressure with excellent results using 2.515 mm balloon, Moderate to severe distal LAD stenosis that will be treated medically at this point. Severe proximal circumflex artery stenosis successful balloon angioplasty with excellent results. I was unable to advance stent to that area due to the angle of the origin of the circumflex artery, Need Aspirin and Plavix for at least 3 more weeks and preferably 6 months if he can tolerate it Diabetes mellitus, followed and managed by primary care physician Hyperlipidemia maintained on Statin, continue to monitor Carotid bruit noted on the left side. Planning to evaluate carotid ultrasound Hypotension, better after receiving IV fluid, continue to monitor blood pressure History of bladder cancer. Currently in remission, Consider Hematology/ Oncology consult Hypothyroidism, followed and managed by primary care physician History of colon polypectomy done in 2008 Strong family history of heart disease with multiple family members with heart attack and bypass surgeries Okay for discharge from cardiology standpoint and follow up in my office next week Clinical Quality Measures DVT/VTE Risk/Contraindication: Risk Factor Score Per Nursin RFS Level Per Nursing on Admit: 2=Moderate TAVON SUGGS MD Jul 27, 2018 10:20
[2018-07-27] MEDS: CLOPIDOGREL 75 MG (PLAVIX) TABLET PO SCH ×2 (10:39→20:45)
--- NOTE | 2018-07-27 10:53 | History & Physical-Hospitalist ---
History of Present Illness HPI/Chief Complaint CC: GIB with hypotension HPI: This is a 68-year-old white male clinic patient of Dr. Torre who has a history of 2 prior DVT and pulmonary emboli events remotely maintained on Coumadin for 10 years who presents from [place] [facility] ER for Hemoccult positive stools with anemia of 9.2 with orthostasis and hypotension. He also takes Cialis and was noted to have taken that recently. He was given IV fluids and stabilized and considering the severity of his hemoglobin drop of 13 to 9 in the past 6 months documented and a recent hypotensive event requiring hospitalization one month ago it via [facility] and stent placement he was felt to be in need of ICU care with close monitoring and possible EGD and colonoscopy heart etiology and pulmonary critical care management. Patient is maintained on Plavix and aspirin and has not reported any bloody stools in the past. I did confer with his primary care provider today regarding the details of his clotting disorder in the past and have conferred with hematology who will provide consultation regarding discontinuation of Coumadin considering the risk versus benefit ratio. He did receive 1 unit of packed red blood cells without complication last night. Source: patient Exam Limitations: no limitations Date Seen 07/27/18 Time Seen by a Provider: 10:00 Attending Physician Stella Garrido DO PCP Hans Farmer MD Referring Physician Date of Admission Jul 26, 2018 at 13:36 Home Medications & Allergies Home Medications Reviewed patient Home Medication Reconciliation performed by pharmacy medication reconciliations electronics maintenance technician and/or nursing. Patients Allergies have been reviewed. Allergies Allergies Coded Allergies No Allergy Information Available (Xlpwwzkkey11/19/18) Past Trqwmtk-Tgqxvl-Ncljhl Hx Past Med/Social Hx: Reviewed Nursing Past Med/Soc Hx, Reviewed and Corrections made Patient Social History Marrital Status: Employed/Student: retired Alcohol Use: Denies Use Alcohol Beverage of Choice: [place] Recreational Drug Use: No Smoking Status: Never a Smoker Former Smoker, Quit: Jul 04, 1980 Type Used: Cigarettes Physical Abuse Screen: No Sexual Abuse: No Recent Foreign Travel: No Contact w/other who traveled: No Recent Hopitalizations: No Recent Infectious Disease Expo: No Immunizations Up To Date Date of Pneumonia Vaccine: Jul 26, 2016 Date of Influenza Vaccine: May 04, 2018 Seasonal Allergies Seasonal Allergies: No Past Medical History Surgeries: Cardiac Currently Using CPAP: No Currently Using BIPAP: No Cardiac: Coronary Artery Disease, High Cholesterol, Hypertension Genitourinary: Bladder Infection (prostate cancer) HEENT: Cataract Hearing Impairment: Denies Cancer: Bladder Did You Recieve Any Treatments: Yes What Type of Treatment Did You: Surgical Intervention Skin/Integumentary: Psoriasis History of Blood Disorders: No Adverse Reaction to Blood [place]: No Family History CAD Over 55 Years Old Review of Systems Constitutional: see HPI, dizziness, weakness EENTM: no symptoms reported Respiratory: no symptoms reported Cardiovascular: no symptoms reported Gastrointestinal: no symptoms reported Genitourinary: no symptoms reported Musculoskeletal: no symptoms reported Skin: no symptoms reported Psychiatric/Neurological: No Symptoms Reported All Other Systems Reviewed Negative Unless Noted: Yes Physical Exam Physical Exam Vital Signs Vital Signs - First Documented 07/26/18 16:07 Temp 96.8 Capillary Refill : Height, Weight, BMI Height: 6'3.00" Weight: 222lbs. 0.0oz. 100.242864em; 26.4 BMI Method: General Appearance: No Apparent Distress, WD/WN Eyes: Bilateral Eye Normal Inspection, Bilateral Eye PERRL HEENT: PERRL/EOMI, TMs Normal, Normal ENT Inspection, Pharynx Normal Neck: Full Range of Motion, Normal Inspection, Non Tender, Supple, Carotid Bruit Respiratory: Chest Non Tender, Lungs Clear, Normal Breath Sounds, No Accessory Muscle Use, No Respiratory Distress Cardiovascular: Regular Rate, Rhythm, No Edema, No Gallop, No JVD, No Murmur, Normal Peripheral Pulses Gastrointestinal: Normal Bowel Sounds, No Organomegaly, No Pulsatile Mass, Non Tender, Soft Back: Normal Inspection, No CVA Tenderness, No Vertebral Tenderness Extremity: Normal Capillary Refill, Normal Inspection, Normal Range of Motion, Non Tender, No Calf Tenderness, No Pedal Edema Neurologic/Psychiatric: Alert, Oriented x3, No Motor/Sensory Deficits, Normal Mood/Affect Skin: Normal Color, Warm/Dry Lymphatic: No Adenopathy Results Results/Procedures Labs Laboratory Tests 07/26/18 14:00 07/26/18 18:40 07/27/18 03:15 Patient resulted labs reviewed. Assessment/Plan Admission Diagnosis Assessment: Syncope due to orthostatic hypotension secondary to anemia, hypovolemia and Cialis Anemia, chronic, heme occult positive, received one unit of packed RBCs, monitor and possible endoscopy as an outpatient History of DVT x 2 and one episode of PE in the past and has been on coumadin for over 10 years, I agree with stopping Coumadin at this point and monitoring as an outpatient but consulting Hematology for formal recs Status post non-ST elevation myocardial infarction s/p angioplasty of previous stent Diabetes mellitus Hyperlipidemia on statin History of bladder cancer in remission Hypothyroidism Plan: JAMES Ramirez Transfer to floor Monitor labs Hematology consultation along with Pulmonology and Cardiology and Surgery are all greatly appreciated Admission Status: Inpatient Order (span 2 midnights) Reason for Inpatient Admission: Severe anemia with orthostasis and heme + stools will need 3 days of hospital stay Diagnosis/Problems Diagnosis/Problems (1) Syncope Status: Acute Qualifiers: Syncope type: unspecified Qualified Codes: R55 - Syncope and collapse (2) GI bleed Status: Acute Qualifiers: GI bleed type/associated pathology: unspecified gastrointestinal hemorrhage type Qualified Codes: K92.2 - Gastrointestinal hemorrhage, unspecified (3) Hypotension Status: Acute Qualifiers: Hypotension type: unspecified hypotension type Qualified Codes: I95.9 - Hypotension, unspecified (4) Chronic anticoagulation Status: Chronic (5) CAD (coronary artery disease) Status: Chronic (6) Non-insulin dependent type 2 diabetes mellitus Status: Chronic (7) Bladder cancer Status: Chronic Qualifiers: Bladder location: unspecified site Qualified Codes: C67.9 - Malignant neoplasm of bladder, unspecified (8) Hypothyroidism Status: Chronic Qualifiers: Hypothyroidism type: acquired Qualified Codes: E03.9 - Hypothyroidism, unspecified (9) Erectile dysfunction Status: Chronic Qualifiers: Erectile dysfunction type: unspecified Qualified Codes: N52.9 - Male erectile dysfunction, unspecified (10) Stenosis of coronary stent Status: Chronic (11) History of DVT of lower extremity Status: Chronic (12) Hx pulmonary embolism Status: Chronic Clinical Quality Measures DVT/VTE Risk/Contraindication: Risk Factor Score Per Nursin RFS Level Per Nursing on Admit: 2=Moderate STELLA GARRIDO DO Jul 27, 2018 10:53
--- NOTE | 2018-07-27 11:30 | NUR ---
RECEIVED FROM ICU, ALERT AND ORIENTED, DENIES PAIN, SOB, CALL LIGHT WITHIN REACH, UP IN CHAIR, AT BEDSIDE, WILL CONTINUE TO MONITOR
--- NOTE | 2018-07-27 15:18 | Progress Note ---
Subjective Date Seen by a Provider: Jul 27, 2018 Time Seen by a Provider: 15:12 Subjective/Events-last exam patient states that he's feeling well. He has no blood per rectum. Patient to get 1 unit packed red blood cells. Hemoglobin today is 8.8. denies any abdominal pain. Patient ambulating without having any syncope or dizziness. Objective Exam Vital Signs Date Time Temp Pulse Resp B/P (MAP) Pulse Ox O2 Delivery O2 Flow Rate FiO2 07/27/18 13:06 73 07/27/18 12:30 98.4 70 17 145/69 (94) 98 Room Air 07/27/18 11:27 72 07/27/18 09:00 81 10 139/72 (94) 95 Room Air 07/27/18 08:00 97 Room Air 07/27/18 08:00 97.7 83 13 145/66 (92) 97 Room Air 07/27/18 07:06 91 07/27/18 07:00 77 10 139/67 (91) 94 Room Air 07/27/18 06:00 87 9 144/72 (96) 97 Room Air 07/27/18 05:00 85 10 132/72 (92) 95 Room Air 07/27/18 04:00 98 Room Air 07/27/18 04:00 98.0 89 14 134/66 (88) 95 Room Air 07/27/18 03:00 94 9 123/68 (86) 94 Room Air 07/27/18 02:00 80 8 132/71 (91) 95 Room Air 07/27/18 01:00 82 07/27/18 01:00 82 9 119/69 (86) 94 Room Air 07/27/18 00:00 98 Room Air 07/27/18 00:00 87 9 126/61 (82) 92 Room Air 07/27/18 00:00 97.2 07/26/18 23:00 82 8 132/67 (88) 94 Room Air 07/26/18 22:15 85 10 142/80 (100) 96 Room Air 07/26/18 21:00 85 10 141/79 (99) 96 Room Air 07/26/18 20:00 82 11 144/78 (100) 98 Room Air 07/26/18 20:00 98 Room Air 07/26/18 19:00 97.9 81 16 138/75 (96) 99 Room Air 07/26/18 19:00 82 07/26/18 18:19 96.9 87 16 141/75 98 Room Air 07/26/18 18:00 87 10 141/75 (97) 96 Room Air 07/26/18 17:00 75 13 130/83 (99) 100 Room Air 07/26/18 16:45 79 12 135/74 (94) 100 Room Air 07/26/18 16:30 79 13 141/66 (91) 99 Room Air 07/26/18 16:24 97.0 80 16 141/66 99 Room Air 07/26/18 16:07 96.8 84 15 137/92 99 Room Air 07/26/18 16:00 98 Room Air I & O 07/27/18 07:00 Intake Total 700 ml Output Total 1875 ml Balance -1175 ml Capillary Refill : General Appearance: No Apparent Distress, WD/WN HEENT: PERRL/EOMI, Normal ENT Inspection Neck: Full Range of Motion, Normal Inspection, Non Tender, Supple, Carotid Bruit Respiratory: Chest Non Tender, No Accessory Muscle Use, No Respiratory Distress Cardiovascular: Regular Rate, Rhythm Gastrointestinal: non tender, soft Extremity: Normal Capillary Refill, Normal Inspection, Non Tender, No Pedal Edema Neurologic/Psychiatric: Alert, Oriented x3, No Motor/Sensory Deficits, Normal Mood/Affect Skin: Normal Color, Warm/Dry Lymphatic: No Adenopathy Results Lab Laboratory Tests 07/26/18 18:40: Hemoglobin 9.2L, Hematocrit 28L 07/26/18 21:31: Glucometer 198H 07/27/18 03:15: Hemoglobin 8.9L, Hematocrit 28L, White Blood Count 6.4, Red Blood Count 3.25L, Mean Corpuscular Volume 85, Mean Corpuscular Hemoglobin 27, Mean Corpuscular Hemoglobin Concent 32, Red Cell Distribution Width 14.0, Platelet Count 306, Mean Platelet Volume 9.3, Neutrophils (%) (Auto) 54, Lymphocytes (%) (Auto) 36, Monocytes (%) (Auto) 8, Eosinophils (%) (Auto) 2, Basophils (%) (Auto) 0, Neutrophils # (Auto) 3.4, Lymphocytes # (Auto) 2.3, Monocytes # (Auto) 0.5, Eosinophils # (Auto) 0.2, Basophils # (Auto) 0.0, Sodium Level 135, Potassium Level 4.0, Chloride Level 105, Carbon Dioxide Level 22, Anion Gap 8, Blood Urea Nitrogen 13, Creatinine 1.04, Estimat Glomerular Filtration Rate > 60, BUN/ Creatinine Ratio 13, Glucose Level 98, Calcium Level 8.7, Corrected Calcium 9.2 , Phosphorus Level 3.6, Magnesium Level 1.6L, Total Bilirubin 0.4, Aspartate Amino Transf (AST/SGOT) 15, Alanine Aminotransferase (ALT/SGPT) 11, Alkaline Phosphatase 54, Total Protein 6.6, Albumin 3.4 07/27/18 06:20: Prothrombin Time 24.4H, INR Comment 2.2H 07/27/18 11:28: Glucometer 199H Assessment/Plan Assessment/Plan Assessment/Plan hypotension, anemia, coronary artery disease, history of pulmonary embolism, history of colon polyps, occult positive stool Patient with occult positive stool and hemoglobin only slight drop compared to previous hospitalization. He is on Plavix and aspirin and Coumadin. Patient also taking Cialis on a daily basis. Patient is having these episodes of hypotension typically after taking medications in the morning when he takes the Cialis. Hypotension could be secondary to this this has been stopped and we'll see if he continues to have hypotension. I discussed with Dr. Melchor doing endoscopy which with recent cardiac intervention it would be safest to wait unless have emergent need. Patient on Protonix currently. Coumadin has been stopped continues on Plavix and aspirin. If he does continue to drop would do EGD and if no source found would then do then plan colonoscopy. if not needed emergently would perform once could stop antiplatelet therapy. Patient is in agreement with plan. No surgical intervention at this time will follow. Clinical Quality Measures DVT/VTE Risk/Contraindication: Risk Factor Score Per Nursin RFS Level Per Nursing on Admit: 2=Moderate SRIKANTH AGUILAR DO Jul 27, 2018 15:18
--- NOTE | 2018-07-27 16:00 | NUR ---
MESSAGE LEFT ON DR ORDOÑEZ PHONE FOR CONSULT, DR GARRIDO INFORMED NURSE SHE CONSULTED HIM EARLIER
--- NOTE | 2018-07-27 18:54 | Consultation ---
History of Present Illness History of Present Illness Patient Consulted On(jim/time) 07/27/18 18:33 Date Seen by Provider: Jul 27, 2018 Time Seen by Provider: 18:33 Reason for Visit: Hypotension History of Present Illness Mr. Jose is a 68 yo male with CAD and h/o DVT/PE who was admitted on transfer from [place] yesterday with hypotension and subacute anemia. He had taken Cialis twice for sexual function yesterday but immediately began to feel light headed. He had a blood pressure cuff at home and noted his blood pressure was low. He was taken to the local ED and found to be hypotensive. His blood pressure improved with IVF, but he was noted to have a hgb of 9-10 when his baseline was 12-13. Fecal blood testing was positive, so he was transferred here to [facility]. Patient has not had any dizziness or syncope since admission. He denies chest pain and palpitations. He has not noticed any blood in stool or urine, and he has not been bruising or bleeding spontaneously. Patient had been admitted from 07/04 to 07/07 with presyncope and hypotension. At that time, he was found to have an NSTEMI, primarily from severe in-stent restenosis of the LAD. He had not been taking Cialis at the time but that episode was associated with significant diarrhea. Patient was successfully treated with balloon angioplasty and dual antiplatelet therapy for that admission. In regards to his DVT history, patient is unclear of the events since they happened 10 or more years ago. He has been on anticoagulation with warfarin since then. 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 Allergies and Home Medications Allergies Coded Allergies: No Allergy Information Available (Unverified , 07/04/18) Home Medications Aspirin 81 Mg Tablet.dr, 81 MG PO DAILY, (Reported) Atorvastatin Calcium 40 Mg Tablet, 40 MG PO HS, (Reported) Chlorpheniramine Maleate 4 Mg Tablet, 4 MG PO DAILY, (Reported) Chlorpheniramine Maleate 4 Mg Tablet, 4 MG PO BID PRN for DRAINAGE, (Reported) Clopidogrel Bisulfate 75 Mg Tablet, 75 MG PO HS, (Reported) Glipizide 10 Mg Tablet, 10 MG PO BID, (Reported) Levothyroxine Sodium 112 Mcg Tablet, 112 MCG PO DAILY, (Reported) Metformin HCl 1,000 Mg Tablet, 1,000 MG PO BID, (Reported) Pioglitazone HCl 30 Mg Tablet, 30 MG PO HS, (Reported) Sitagliptin Phosphate 100 Mg Tablet, 100 MG PO DAILY, (Reported) Patient Home Medication List Home Medication List Reviewed: Yes Past Tdgyodt-Jzjiga-Hhfrdk Hx Past Med/Social Hx: Reviewed Nursing Past Med/Soc Hx, Reviewed and Corrections made Patient Social History Alcohol Use: Denies Use Alcohol Beverage of Choice: [place] Recreational Drug Use: No Smoking Status: Never a Smoker Type Used: Cigarettes Former Smoker, Quit: Jul 04, 1980 Recent Foreign Travel: No Contact w/Someone Who Travel: No Recent Infectious Disease Expo: No Recent Hopitalizations: No Immunizations Up To Date Date of Pneumonia Vaccine: Jul 26, 2016 Date of Influenza Vaccine: May 04, 2018 Seasonal Allergies Seasonal Allergies: No Past Medical History Surgeries: Yes Cardiac Respiratory: No Currently Using CPAP: No Currently Using BIPAP: No Cardiac: Yes (stents in 1996) Coronary Artery Disease, High Cholesterol, Hypertension Neurological: No Genitourinary: Yes (bladder cancer in past) Bladder Infection (prostate cancer) Gastrointestinal: No Musculoskeletal: No HEENT: Yes Cataract Hearing Impairment: Denies Cancer: Yes Bladder Did You Recieve Any Treatments: Yes What Type of Treatment Did You: Surgical Intervention Psychosocial: No Integumentary: Yes Psoriasis Blood Disorders: No Adverse Reaction/Blood Tranf: No Family Medical History CAD Over 55 Years Old Review of Systems-General Constitutional: dizziness EENTM: no symptoms reported Respiratory: no symptoms reported Cardiovascular: No chest pain, No edema; Hx of Intervention; No palpitations; syncope, vascular heart diseas Gastrointestinal: diarrhea Genitourinary: other (erectile dysfunction) Musculoskeletal: no symptoms reported Skin: no symptoms reported Psychiatric/Neurological: No Symptoms Reported Physical Exam-General Problems Physical Exam Vital Signs Vital Signs - First Documented 07/26/18 16:07 Temp 96.8 Capillary Refill : General Appearance: WD/WN, no apparent distress Eyes: Bilateral Eye Normal Inspection, Bilateral Eye EOMI HEENT: normal ENT inspection, pharynx normal Neck: full range of motion, normal inspection Respiratory: chest non-tender, lungs clear, normal breath sounds, no respiratory distress, no accessory muscle use Cardiovascular: normal peripheral pulses, regular rate, rhythm, no edema, no murmur Gastrointestinal: normal bowel sounds, non tender, soft Extremities: normal range of motion, normal inspection, no pedal edema Neurologic/Psychiatric: no motor/sensory deficits, alert, normal mood/affect, oriented x 3 Skin: normal color, warm/dry Assessment/Plan Assessment/Plan Admission Diagnosis/Plan Patient is a 68 yo male with CAD and h/o DVTs who was admitted with hypotension and subacute anemia. There is a high likelihood that patient is losing most of his blood from GI sources, but cardiovascular risk is currently the most imminent threat. Since he is on mandatory antiplatelet therapy, and blood counts have been stable since last admission, EGD and colonoscopy have been deferred to emergent situations or when he is cleared by cardiology to stop antiplatelet therapy. In this situation, management of risk of VTE is our lowest priority, and cessation of anticoagulation is the most appropriate approach. Should we find a source of bleeding and are able to stop it definitively, patient has indication to resume indefinite anticoagulation due to multiple unprovoked VTEs. And although we are fairly confident patient has a GI source of anemia, it would be ideal to complete a basic nutritional deficiency workup. Given his recent PRBC transfusion, however, that workup is likely going to be skewed. Defer workup to outpatient setting. Thank you for allowing me to participate in the care of Mr. Jose. Clinical Quality Measures DVT/VTE Risk/Contraindication: Risk Factor Score Per Nursin RFS Level Per Nursing on Admit: 2=Moderate NAHOMY ORDOÑEZ MD Jul 27, 2018 18:54
[2018-07-27] MEDS ORDERED: ATORVASTATIN 40 MG (LIPITOR) TABLET PO SCH (21:00)
[2018-07-27] MEDS ORDERED: CLOPIDOGREL 75 MG (PLAVIX) TABLET PO SCH (21:00)
[2018-07-28 04:38] LABS: MEAN PLATELET VOLUME 8.6 FL (7.4-10.4); RED BLOOD COUNT 3.3 10^6/uL (4.35-5.85); RED CELL DISTRIBUTION WIDTH 14.2 % (10.0-14.5); WHITE BLOOD COUNT 5.9 10^3/uL (4.3-11.0)
[2018-07-28 04:55] VITALS: BP 140/63
[2018-07-28 04:59] LABS: ALANINE AMINOTRANSFERASE 10 U/L (0-55); ALBUMIN 3.5 GM/DL (3.2-4.5); ALKALINE PHOSPHATASE 55 U/L (40-136); BILIRUBIN,TOTAL 0.4 MG/DL (0.1-1.0); BUN/CREATININE RATIO 10; CALCIUM 8.5 MG/DL (8.5-10.1); CARBON DIOXIDE 21 MMOL/L (21-32); CHLORIDE 102 MMOL/L (98-107); CREATININE SERUM 1.07 MG/DL (0.60-1.30); GFR ESTIMATED > 60; GLUCOSE 198 MG/DL (70-105); POTASSIUM 4.1 MMOL/L (3.6-5.0); SODIUM 133 MMOL/L (135-145); TOTAL PROTEIN 6.7 GM/DL (6.4-8.2)
[2018-07-28] MEDS: inSUlin ASPART (NovoLOG) 1 UNIT/0.01 ML (CHARGE PER UNIT) SC SCH ×2 (06:24→11:31)
[2018-07-28 08:01] VITALS: BP 137/65
--- NOTE | 2018-07-28 08:12 | Pulmonary Progress Note ---
Subjective Time Seen by a Provider: 08:10 Subjective/Events-last exam NO complications noted. Sepsis Event Evaluation Height, Weight, BMI Height: 6'3.00" Weight: 219lbs. 0.0oz. 99.912061yp; 26.4 BMI Method: Exam Exam Vital Signs Date Time Temp Pulse Resp B/P (MAP) Pulse Ox O2 Delivery O2 Flow Rate FiO2 07/28/18 08:01 97.7 88 16 137/65 (89) 96 Room Air 07/28/18 07:03 99 07/28/18 04:55 98.9 92 16 140/63 (88) 96 Room Air 07/28/18 01:00 100 07/27/18 23:28 98.1 87 16 147/69 (95) 96 Room Air 07/27/18 20:00 98.8 77 16 130/62 (84) 97 Room Air 07/27/18 20:00 Room Air 07/27/18 19:00 80 07/27/18 16:00 97.3 78 15 121/59 (79) 07/27/18 13:06 73 07/27/18 12:30 98.4 70 17 145/69 (94) 98 Room Air 07/27/18 12:00 97 Room Air 07/27/18 11:27 72 07/27/18 09:00 81 10 139/72 (94) 95 Room Air I & O 07/28/18 07:00 Intake Total 810 ml Output Total 500 ml Balance 310 ml Height & Weight Height: 6'3.00" Weight: 219lbs. 0.0oz. 99.973479hw; 26.4 BMI Method: General Appearance: No Apparent Distress, WD/WN HEENT: PERRL/EOMI, TMs Normal, Normal ENT Inspection, Pharynx Normal Neck: Full Range of Motion, Normal Inspection, Non Tender, Supple, Carotid Bruit Respiratory: Chest Non Tender, Lungs Clear, Normal Breath Sounds, No Accessory Muscle Use, No Respiratory Distress Cardiovascular: Regular Rate, Rhythm, No Edema, No Gallop, No JVD, No Murmur, Normal Peripheral Pulses Gastrointestinal: normal bowel sounds, non tender, soft Extremity: Normal Capillary Refill, Normal Inspection, Normal Range of Motion, Non Tender, No Calf Tenderness, No Pedal Edema Neurologic/Psychiatric: Alert, Oriented x3, No Motor/Sensory Deficits, Normal Mood/Affect Skin: Normal Color, Warm/Dry Lymphatic: No Adenopathy Results Lab Laboratory Tests 07/26/18 14:00 07/26/18 18:40 07/27/18 03:15 07/28/18 04:25 Assessment/Plan Assessment/Plan Acute GIB s/p transfusion of 1 unit PRBC -monitor -Surgery consulted Hx of DVT - dx 10yrs ago which was his only DVT hx. -Coumadin is on hold -Gerard considering pt needs plavix for recent cardiac stent I recommend D/Cing Coumadin and not restarting unless another issue arises. Hx of bladder cancer- currently in remission Coumadin coagulopathy -Coumadin on hold Hypomagnesemia -Replace Hypotension - resolved CAD with last stent placement 07/06/18 -plavix and ASA currently on hold -Cardiology is consulted ZAHRA BLOUNT DO Jul 28, 2018 08:12
[2018-07-28] MEDS ORDERED: PANTOPRAZOLE 40 MG (PROTONIX) TAB PO SCH (09:00)
[2018-07-28] MEDS ORDERED: ASPIRIN E.C. 81 MG (ECOTRIN) TAB PO SCH (09:00)
[2018-07-28] MEDS ORDERED: PANT40TA3 PO (10:19)
--- NOTE | 2018-07-28 10:29 | Discharge Summary-Hospitalist ---
Diagnosis/Chief Complaint Date of Admission Jul 26, 2018 at 13:36 Date of Discharge Discharge Date: Jul 28, 2018 Discharge Time: 1100 Admission Diagnosis Assessment: Syncope due to orthostatic hypotension secondary to anemia, hypovolemia and Cialis Anemia, chronic, heme occult positive, received one unit of packed RBCs, monitor and possible endoscopy as an outpatient History of DVT x 2 and one episode of PE in the past and has been on coumadin for over 10 years, I agree with stopping Coumadin at this point and monitoring as an outpatient but consulting Hematology for formal recs Status post non-ST elevation myocardial infarction s/p angioplasty of previous stent Diabetes mellitus Hyperlipidemia on statin History of bladder cancer in remission Hypothyroidism Plan: DC Weis Transfer to floor Monitor labs Hematology consultation along with Pulmonology and Cardiology and Surgery are all greatly appreciated Discharge Diagnosis Syncope secondary to orthostatic hypotension Gastrointestinal bleeding Coronary artery disease with recent stent placement Remote history of DVT-one episode (1) Syncope Status: Acute (2) GI bleed Status: Acute (3) Hypotension Status: Acute (4) Chronic anticoagulation Status: Chronic (5) CAD (coronary artery disease) Status: Chronic (6) Non-insulin dependent type 2 diabetes mellitus Status: Chronic (7) Bladder cancer Status: Chronic (8) Hypothyroidism Status: Chronic (9) Erectile dysfunction Status: Chronic (10) Stenosis of coronary stent Status: Chronic (11) History of DVT of lower extremity Status: Chronic (12) Hx pulmonary embolism Status: Chronic Discharge Summary Procedures/Consulations Dr. Shelbi Osorio No procedures Discharge Physical Exam Allergies: Coded Allergies: No Allergy Information Available (Unverified , 07/04/18) Vitals & I&Os Vital Signs Date Time Temp Pulse Resp B/P (MAP) Pulse Ox O2 Delivery O2 Flow Rate FiO2 07/28/18 08:25 Room Air 07/28/18 08:01 97.7 88 16 137/65 (89) 96 General Appearance: No Apparent Distress, WD/WN HEENT: Normal ENT Inspection Respiratory: Chest Non Tender, Lungs Clear, Normal Breath Sounds, No Accessory Muscle Use, No Respiratory Distress Cardiovascular: Regular Rate, Rhythm, No Gallop, No JVD, Normal Peripheral Pulses Gastrointestinal: Normal Bowel Sounds, No Organomegaly, Non Tender, Soft Extremity: Normal Capillary Refill, Normal Range of Motion, Non Tender, No Calf Tenderness Skin: Normal Color, Warm/Dry Neurologic/Psychiatric: Alert, Oriented x3, No Motor/Sensory Deficits, Normal Mood/Affect Hospital Course Patient was admitted with orthostatic hypotension that was deemed to be probably secondary to gastrointestinal bleeding and Cialis. Patient was seen in consultation by Dr. Osorio who felt like with chronic anticoagulation with aspirin and Plavix and Coumadin that an EGD would present more risks than benefits. Patient's hemoglobin stabilized without intervention other than transfusion with 1 unit of packed cells. His blood pressure recovered without incident. The patient was also seen in consultation by Dr. Gabriel who felt like the patient could be off of his Coumadin and not be on triple anticoagulant therapy. Dr. Berrios agreed as did Dr. Mario. The patient's hemoglobin has stabilized at 9. He is feeling well without further incident and is anxious to go home. He has an appointment to see Dr. Gabriel in follow- up in 2 days. Labs (last 24 hrs) Laboratory Tests 07/27/18 11:28: Glucometer 199H 07/27/18 16:38: Glucometer 175H 07/27/18 20:03: Glucometer 178H 07/28/18 04:25: White Blood Count 5.9, Red Blood Count 3.30L, Hemoglobin 9.0L, Hematocrit 28L, Mean Corpuscular Volume 85, Mean Corpuscular Hemoglobin 27, Mean Corpuscular Hemoglobin Concent 32, Red Cell Distribution Width 14.2, Platelet Count 336, Mean Platelet Volume 8.6, Sodium Level 133L, Potassium Level 4.1, Chloride Level 102, Carbon Dioxide Level 21, Anion Gap 10, Blood Urea Nitrogen 11, Creatinine 1.07, Estimat Glomerular Filtration Rate > 60, BUN/Creatinine Ratio 10, Glucose Level 198H, Calcium Level 8.5, Corrected Calcium 8.9, Total Bilirubin 0.4, Aspartate Amino Transf (AST/SGOT) 14, Alanine Aminotransferase ( ALT/SGPT) 10, Alkaline Phosphatase 55, Total Protein 6.7, Albumin 3.5 07/28/18 05:16: Glucometer 197H Microbiology 07/26/18 MRSA Screen - Final, Complete MRSA not isolated Patient resulted labs reviewed. Pending Labs Laboratory Tests 07/28/18 04:25: White Blood Count 5.9, Red Blood Count 3.30, Hemoglobin 9.0, Hematocrit 28, Mean Corpuscular Volume 85, Mean Corpuscular Hemoglobin 27, Mean Corpuscular Hemoglobin Concent 32, Red Cell Distribution Width 14.2, Platelet Count 336, Mean Platelet Volume 8.6, Sodium Level 133, Potassium Level 4.1, Chloride Level 102, Carbon Dioxide Level 21, Anion Gap 10, Blood Urea Nitrogen 11, Creatinine 1.07, Estimat Glomerular Filtration Rate > 60, BUN/Creatinine Ratio 10, Glucose Level 198, Calcium Level 8.5, Corrected Calcium 8.9, Total Bilirubin 0.4, Aspartate Amino Transf (AST/SGOT) 14, Alanine Aminotransferase (ALT/SGPT) 10, Alkaline Phosphatase 55, Total Protein 6.7, Albumin 3.5 07/28/18 05:16: Glucometer 197 Imaging: Reviewed Imaging Report Discussion & Recommendations Discharge Planning: >30 minutes discharge planning Discharge Home Medications: Active Scripts Active Pantoprazole Sodium 40 Mg Tablet.dr 40 Mg PO DAILY 30 Days Reported Plavix (Clopidogrel Bisulfate) 75 Mg Tablet 75 Mg PO HS Lo-Dose Aspirin EC (Aspirin) 81 Mg Tablet.dr 81 Mg PO DAILY Atorvastatin Calcium 40 Mg Tablet 40 Mg PO HS Metformin HCl 1,000 Mg Tablet 1,000 Mg PO BID Chlor-Trimeton (Chlorpheniramine Maleate) 4 Mg Tablet 4 Mg PO BID PRN Chlor-Trimeton (Chlorpheniramine Maleate) 4 Mg Tablet 4 Mg PO DAILY Januvia (Sitagliptin Phosphate) 100 Mg Tablet 100 Mg PO DAILY Glipizide 10 Mg Tablet 10 Mg PO BID Pioglitazone HCl 30 Mg Tablet 30 Mg PO HS Levothyroxine Sodium 112 Mcg Tablet 112 Mcg PO DAILY Condition at discharge Stable Instructions to patient/family Please see electronic discharge instructions given to patient. Clinical Quality Measures DVT/VTE Risk/Contraindication: Risk Factor Score Per Nursin RFS Level Per Nursing on Admit: 2=Moderate Copy Copies To 1: SHARON IVERSON MD Copies To 2: TAVON SUGGS MD Problem Qualifiers (1) Syncope: Syncope type: unspecified Qualified Codes: R55 - Syncope and collapse (2) GI bleed: GI bleed type/associated pathology: unspecified gastrointestinal hemorrhage type Qualified Codes: K92.2 - Gastrointestinal hemorrhage, unspecified (3) Hypotension: Hypotension type: unspecified hypotension type Qualified Codes: I95.9 - Hypotension, unspecified (4) Bladder cancer: Bladder location: unspecified site Qualified Codes: C67.9 - Malignant neoplasm of bladder, unspecified (5) Hypothyroidism: Hypothyroidism type: acquired Qualified Codes: E03.9 - Hypothyroidism, unspecified (6) Erectile dysfunction: Erectile dysfunction type: unspecified Qualified Codes: N52.9 - Male erectile dysfunction, unspecified ERICH TURNER MD Jul 28, 2018 10:29
[2018-07-28 11:04] VITALS: BP 143/65
--- NOTE | 2018-07-28 11:31 | NUR ---
PER [facility]SI PATIENT IS SUPPOSED TO GET 4 UNITS NOVOLOG FOR BS OF 186. PATIENT IS EAGER TO BE DISCHARGED AND STATES CAN TAKE MEDICATIONS AT HOME. WILL NON ADMIN DOSE AT THIS TIME.
== END 2018-07-28 10:17 | disposition home or self-care (01) ==
LOC: ICU 13:32 → UNDOADMIN 13:36 → UNDOADMOB 13:36 → EDSTATUS 15:43 → ICU 07-27 11:50 → 4TH 07-27 11:50 → ICU 07-27 11:50 → 4TH 07-27 11:50 → UNDODISOB 07-28 11:45 → UNDODISIN 07-28 11:45
PROVIDERS: ADMIT Internal Medicine; ATTEND Internal Medicine
DX: D50.0 Iron deficiency anemia secondary to blood loss (chronic) (principal); K92.2 Gastrointestinal hemorrhage, unspecified; I95.1 Orthostatic hypotension; R55 Syncope and collapse; E86.1 Hypovolemia; I25.10 Atherosclerotic heart disease of native coronary artery without angina pectoris; I25.2 Old myocardial infarction; E11.9 Type 2 diabetes mellitus without complications; E78.5 Hyperlipidemia, unspecified; E03.9 Hypothyroidism, unspecified; R09.89 Other specified symptoms and signs involving the circulatory and respiratory systems; L40.9 Psoriasis, unspecified; T46.7X5A Adverse effect of peripheral vasodilators, initial encounter; E83.42 Hypomagnesemia; N52.9 Male erectile dysfunction, unspecified; Z95.5 Presence of coronary angioplasty implant and graft; Z82.49 Family history of ischemic heart disease and other diseases of the circulatory system; Z86.718 Personal history of other venous thrombosis and embolism; Z86.711 Personal history of pulmonary embolism; Z79.01 Long term (current) use of anticoagulants; Z87.891 Personal history of nicotine dependence; Z79.82 Long term (current) use of aspirin; Z79.02 Long term (current) use of antithrombotics/antiplatelets; Z85.51 Personal history of malignant neoplasm of bladder; Z86.010 Personal history of colon polyps; Z79.84 Long term (current) use of oral hypoglycemic drugs
CPT/HCPCS: 36415; 71045; 80053; 82962; 83735; 84100; 85014; 85018; 85025; 85027; 85610; 86850; 86900; 86901; 86920; 87081; G0378

== ENCOUNTER 2018-09-06 05:40 | Outpatient (CLI) | payer MEDICARE ==
[~2018-09-06] VITALS: Ht 190.5 cm; Wt 99.3 kg
[~2018-09-06 05:40] MED LIST changes: +ASPI-989 PO; +ATOR40TA70 PO; +CLOP75TA69 PO; +PANT40TA3 PO; +SIMV80TA21 PO; -SIMV80TA5 PO
[2018-09-06] MEDS ORDERED: FLUT9.9S NS (10:29)
== END 2018-09-06 10:30 ==
LOC: PREOP 05:40
PROVIDERS: ATTEND Surgery
DX: Z01.818 Encounter for other preprocedural examination (principal)

== ENCOUNTER 2018-09-11 12:55 | Day surgery (SDC) | payer MEDICARE ==
[~2018-09-11] VITALS: Ht 190.5 cm; Wt 99.3 kg
[~2018-09-11 12:55] MED LIST changes: +FLUT9.9S NS
[2018-09-11] MEDS ORDERED: LACTATED RINGERS 1,000 ML IV ONE (13:05)
[2018-09-11 13:10] VITALS: BP 127/78
[2018-09-11] MEDS ORDERED: LACTATED RINGERS 1,000 ML IV PRN (13:15)
[2018-09-11] MEDS ORDERED: PROPOFOL INJECTION 50 ML IV ONE ×2 (13:17→14:38)
[2018-09-11] MEDS ORDERED: MIDAZOLAM 2 MG/2 ML (VERSED) VIAL ONE (13:17)
--- NOTE | 2018-09-11 13:19 | Progress Note-Pre Operative ---
Pre-Operative Progress Note H&P Reviewed The H&P was reviewed, patient examined and no changes noted. Date Seen by Provider: Sep 11, 2018 Time Seen by Provider: 13:19 Date H&P Reviewed: Sep 11, 2018 Time H&P Reviewed: 13:19 Pre-Operative Diagnosis: iron def anemia, gi bleed SRIKANTH AGUILAR DO Sep 11, 2018 13:19
[2018-09-11] MEDS ORDERED: HURRICAINE EXT TUBE (BENZOCAINE) ONE (14:01)
[2018-09-11] MEDS ORDERED: GLYCOPYRROLATE 0.2 MG/ML (ROBINUL) 2 ML VIAL ONE (14:30)
[2018-09-11] MEDS ORDERED: HURRICAINE EXT TUBE (BENZOCAINE) XX ONE (14:45)
[2018-09-11 15:15] VITALS: BP 126/72
[2018-09-11 15:45] VITALS: BP 128/72
[2018-09-11 16:00] VITALS: BP 128/72
--- NOTE | 2018-09-11 16:05 | Progress Note-Post Operative ---
Post-Operative Progess Note Surgeon (s)/Gun Stocker (s) Surgeon SRIKANTH AGUILAR DO Gun Stocker: na Pre-Operative Diagnosis iron def anemia, gi bleed Post-Operative Diagnosis ascending colon mass Procedure & Operative Findings Date of Procedure 09/11/18 Procedure Performed/Findings egd c biopsies, colonoscopy with hot biopsies ascending colon mass and oscar inking Anesthesia Type per manager fiber Estimated Blood Loss Estimated blood loss (mL): scant Specimens/Packing Specimens Removed antrum, ge ascending colon mass SRIKANTH AGUILAR DO Sep 11, 2018 16:05
--- NOTE | 2018-09-12 01:10 | OPERATIVE REPORT ---
DATE OF SERVICE: 09/11/2018 PREOPERATIVE DIAGNOSIS: Iron deficiency anemia, GI bleed. POSTOPERATIVE DIAGNOSIS: Ascending colon mass. PROCEDURE: EGD with biopsies, colonoscopy with hot biopsy of ascending colon mass with Nola inking. SURGEON: Srikanth Osorio DO ANESTHESIA: Per TECHNICAL ENGINEER. ESTIMATED BLOOD LOSS: Scant. COMPLICATIONS: None. INDICATIONS: The patient is a 68-year-old male who was found to have iron deficiency anemia and having GI bleed. He was recommended to have EGD and colonoscopy performed. He understands risks and benefits and wishes to proceed with procedure. Consent was signed in the chart. PROCEDURE: The patient was taken to the endoscopy suite, placed in left lateral recumbent position. Timeout was performed. Scope was inserted into the mouth, down the esophagus, stomach and into the duodenum without difficulty. There are no polyps, masses or ulcerations. Scope was then slowly retracted back into the stomach where it was further insufflated. Some slight erythematous changes in the antrum were present. Biopsy of the antrum was obtained. No polyps, masses or ulcerations. Scope was retroflexed noting a very small hiatal hernia. No other pathology. Scope was returned to its normal position, slowly withdrawn to the distal esophagus where biopsy of the GE junction was obtained. There are no polyps, masses or ulcerations. Scope was slowly retracted back and completely removed, noting no other pathology. Digital rectal exam was performed. There were no palpable polyps, masses or ulcerations. Scope was inserted into the rectum and advanced all way to the cecum with minimal difficulty. A very tiny polyp present within the cecum. There was a large mass in the ascending colon just distal to the cecum. Hot biopsies were obtained. The mass was approximately 1/3 of the diameter of the lumen. It had some slight oozing at the mass level. Biopsies were obtained and Nola ink was used to inject the mucosa in four spots at the level of the mass. Scope was continued slowly retracted back. There were no polyps, masses, ulcerations within the remainder of the ascending, transverse, descending and sigmoid colon. Once in the rectum, scope was retroflexed noting no other pathology. Scope was returned to its normal position, slowly withdrawn until completely removed. RECOMMENDATIONS: The patient will follow up in the office in 2 weeks to discuss pathology results. The patient will need a right colon resection and we will discuss this at that time. Job ID: [id number] DocumentID: [id number] Dictated Date: 09/11/2018 16:12:44 Vp Product Management Date: 09/12/2018 01:09:31 Dictated By: SRIKANTH OSORIO DO
== END 2018-09-11 16:00 | disposition home or self-care (01) ==
LOC: ENDO 12:55
PROVIDERS: ATTEND Surgery
DX: K63.5 Polyp of colon (principal); D50.9 Iron deficiency anemia, unspecified; I25.10 Atherosclerotic heart disease of native coronary artery without angina pectoris; I10 Essential (primary) hypertension; E11.43 Type 2 diabetes mellitus with diabetic autonomic (poly)neuropathy; Z86.010 Personal history of colon polyps; Z87.891 Personal history of nicotine dependence; Z95.5 Presence of coronary angioplasty implant and graft; Z79.02 Long term (current) use of antithrombotics/antiplatelets; Z79.82 Long term (current) use of aspirin; Z79.84 Long term (current) use of oral hypoglycemic drugs; Z79.899 Other long term (current) drug therapy
CPT/HCPCS: 82962; 88305

== ENCOUNTER → 2018-09-25 | Outpatient (CLI) | payer MEDICARE ==
[2018-09-25 10:46] LABS: MEAN PLATELET VOLUME 8.9 FL (7.4-10.4); RED CELL DISTRIBUTION WIDTH 14.4 % (10.0-14.5); WHITE BLOOD COUNT 7.7 10^3/uL (4.3-11.0)
[2018-09-25 11:10] LABS: ALANINE AMINOTRANSFERASE 10 U/L (0-55); ALBUMIN 3.8 GM/DL (3.2-4.5); ALKALINE PHOSPHATASE 71 U/L (40-136); BILIRUBIN,TOTAL 0.3 MG/DL (0.1-1.0); BUN/CREATININE RATIO 11; CALCIUM 9.4 MG/DL (8.5-10.1); CARBON DIOXIDE 22 MMOL/L (21-32); CHLORIDE 100 MMOL/L (98-107); CREATININE SERUM 1.15 MG/DL (0.60-1.30); GFR ESTIMATED > 60; GLUCOSE 130 MG/DL (70-105); POTASSIUM 4.5 MMOL/L (3.6-5.0); SODIUM 133 MMOL/L (135-145); TOTAL PROTEIN 7.6 GM/DL (6.4-8.2)
--- NOTE | 2018-09-25 14:09 | Diagnostic Imaging Report ---
INDICATION: Adenocarcinoma of the colon. The study is performed for initial staging. TECHNIQUE: Serum blood glucose level at the time of injection is 154 mg/dL. The patient was administered 11.7 mCi of F-18 FDG intravenously in the right antecubital region, and PET imaging was performed from the top of the skull to mid thighs. Noncontrast CT was also performed for attenuation correction and anatomic correlation. COMPARISON: No prior imaging is available for comparison. FINDINGS: There is symmetric activity throughout the brain. Soft tissues of the neck are unremarkable. No mediastinal or hilar hypermetabolism is identified. Pulmonary parenchyma is unremarkable. Imaging through the abdomen and pelvis demonstrates physiologic activity within the GI and tracts. There is activity throughout the GI tract, but there is also a more focal area of activity in the mid ascending colon with SUV value of approximately 4.3. This may account for a known right colon lesion. No definite abdominal hypermetabolic lymphadenopathy is seen. The pelvis is unremarkable. IMPRESSION: Unremarkable PET/CT study apart from some focal hypermetabolism in the mid portion of the ascending colon, perhaps patient's known primary colon carcinoma. No findings to suggest metastatic disease are identified. Dictated by: Dictated on workstation # [id number]
== END ==
LOC: RAD 10:14
PROVIDERS: ATTEND Surgery
DX: C18.9 Malignant neoplasm of colon, unspecified (principal)
CPT/HCPCS: 36415; 80053; 82378; 85027

== ENCOUNTER 2018-10-04 11:50 | Outpatient (CLI) | payer MEDICARE ==
[~2018-10-04] VITALS: Ht 190.5 cm; Wt 96.2 kg
[2018-10-04] MEDS ORDERED: METR45CR TP (12:04)
[2018-10-04] MEDS ORDERED: FERR-84 PO (12:04)
[2018-10-04] MEDS ORDERED: FLUT9.9S16 NS (12:04)
[2018-10-04] MEDS ORDERED: AZEL50GE5 TP (12:04)
[2018-10-04] MEDS ORDERED: CYAN250014 PO (12:04)
[2018-10-04] MEDS ORDERED: HYDR28OI2 TP (12:04)
[2018-10-04] MEDS ORDERED: NF-PIME1% TP (12:04)
[2018-10-04 12:08] VITALS: BP 89/52
[2018-10-04] MEDS ORDERED: FLUT9.9S NS (14:37)
[2018-10-04] MEDS ORDERED: CYAN10006 PO (14:37)
[2018-10-04] MEDS ORDERED: PANT40TA2 PO (14:37)
[2018-10-04] MEDS ORDERED: WARF4TAB70 PO (14:37)
== END 2018-10-04 13:29 | disposition home or self-care (01) ==
LOC: PREOP 11:50
PROVIDERS: ATTEND Surgery
DX: Z01.818 Encounter for other preprocedural examination (principal)
CPT/HCPCS: 87081

== ENCOUNTER 2018-10-05 15:17 | Emergency (ER) | payer MEDICARE ==
[~2018-10-05] VITALS: Ht 200.7 cm; Wt 93.0 kg
[~2018-10-05 15:17] MED LIST changes: +AZEL50GE5 TP; +CYAN10006 PO; +CYAN250014 PO; +FERR-84 PO; +FLUT9.9S16 NS; +HYDR28OI2 TP; +METR45CR TP; +NF-PIME1% TP; +PANT40TA2 PO
--- NOTE | 2018-10-05 15:39 | ED General ---
General Chief Complaint: General Problems/Pain Stated Complaint: LOW BP Source of Information: Patient Exam Limitations: No Limitations History of Present Illness Date Seen by Provider: Oct 05, 2018 Time Seen by Provider: 15:35 Initial Comments To ER with progressive weakness, dyspnea on exertion and low blood pressure. He measured his blood pressure at home today a couple of readings with a systolic in the 90s. He is scheduled for colon resection on Monday10/08/18 secondary to a mass found in the ascending colon on recent colonoscopy. He had a PET CT done on 09/25/18 showing no evidence of metastasis but a bit of hyper metabolism hastening colon. He was formerly on anticoagulants for a history of DVT/PE in 2009 but stopped taking those medications 2 days ago in preparation for his surgery on Monday. He reports chronic arc tarry stools without clots or obvious blood. History of hypothyroidism, coronary artery disease with stenting and type 2 diabetes. He called his family doctor Darian in [place] today who recommended he be evaluated in the emergency room for his complaints. He denies any chest pain or abdominal pain nausea or vomiting. He states that he had a hemoglobin checked on 09/24/18 and it was 8. Timing/Duration: Getting Worse, Intermittent Severity: Moderate Associated Systoms: No Chest Pain, No Cough, No Fever/Chills, No Headaches; Malaise; No Nausea/Vomiting; Weakness Allergies and Home Medications Allergies Coded Allergies: No Known Drug Allergies (Unverified , 10/04/18) Home Medications Aspirin 81 Mg Tablet.dr, 81 MG PO DAILY, (Reported) Atorvastatin Calcium 40 Mg Tablet, 40 MG PO HS, (Reported) Azelaic Acid 50 Gm Gel..gram., TP DAILY PRN for PSORIASIS, (Reported) Chlorpheniramine Maleate 4 Mg Tablet, 4 MG PO DAILY, (Reported) Chlorpheniramine Maleate 4 Mg Tablet, 4 MG PO BID PRN for DRAINAGE, (Reported) Clopidogrel Bisulfate 75 Mg Tablet, 75 MG PO HS, (Reported) Cyanocobalamin (Vitamin B-12) 1,000 Mcg Tablet, 1,000 MCG PO DAILY, (Reported) Ferrous Sulfate 325 Mg Tablet, 325 MG PO TID, (Reported) Fluticasone Propionate 9.9 Ml [place].susp, 2 SPRAY NS DAILY PRN for ALLERGIES, ( Reported) Glipizide 10 Mg Tablet, 10 MG PO BID, (Reported) Hydrocortisone Acetate 28 Gm Oint...g., TP DAILY PRN for PSORIASIS, (Reported) Levothyroxine Sodium 112 Mcg Tablet, 112 MCG PO DAILY, (Reported) Metformin HCl 1,000 Mg Tablet, 1,000 MG PO BID, (Reported) Metronidazole 45 Gm Cream..g., TP DAILY PRN for PSORIASIS, (Reported) Pantoprazole Sodium 40 Mg Tablet.dr, 40 MG PO DAILY, (Reported) Pimecrolimus 30 Gm Cream.gm., TP DAILY PRN for PSORIASIS, (Reported) Pioglitazone HCl 30 Mg Tablet, 30 MG PO HS, (Reported) Sitagliptin Phosphate 100 Mg Tablet, 100 MG PO DAILY, (Reported) Patient Home Medication List Home Medication List Reviewed: Yes Review of Systems Review of Systems Constitutional: see HPI, weakness EENTM: see HPI Respiratory: see HPI, dyspnea on exertion Cardiovascular: see HPI; No chest pain, No edema; Hx of Intervention; No palpitations, No syncope; other (lightheadedness) Gastrointestinal: melena; No nausea, No vomiting Genitourinary: no symptoms reported Musculoskeletal: no symptoms reported Skin: no symptoms reported Psychiatric/Neurological: No Symptoms Reported Hematologic/Lymphatic: No Symptoms Reported Past Mpxaxjo-Nexmtx-Bdljcn Hx Patient Social History Alcohol Use: Denies Use Number of Drinks Today: BB Alcohol Beverage of Choice: [place] Recreational Drug Use: No Smoking Status: Former Smoker Type Used: Cigarettes Former Smoker, Quit: Jul 04, 1980 2nd Hand Smoke Exposure: Yes Recent Foreign Travel: No (N) Recent Hopitalizations: Yes (JUL 2018-LOW B/P, ANEMIA) Immunizations Up To Date Tetanus Booster (TDap): Unknown Date of Pneumonia Vaccine: Jul 26, 2016 Date of Influenza Vaccine: May 04, 2018 Seasonal Allergies Seasonal Allergies: No Past Medical History Surgeries: Yes (BLADDER SURGERY-CANCER, ) Cardiac Respiratory: Yes Pulmonary Embolism Currently Using CPAP: No Currently Using BIPAP: No Cardiac: Yes (stents in 1996, ANGIOPLASTY 06/2018) Coronary Artery Disease, High Cholesterol, Hypertension Neurological: No Genitourinary: Yes (bladder cancer in past) Bladder Infection Gastrointestinal: Yes (COLON CA) Musculoskeletal: No Endocrine: Yes Diabetes, Non-Insulin dep HEENT: Yes (GLASSES) Cataract Loss of Vision: Bilateral Hearing Impairment: Denies Cancer: Yes Bladder, Colon Did You Recieve Any Treatments: Yes What Type of Treatment Did You: Chemotherapy, Surgical Intervention Psychosocial: No Integumentary: Yes Psoriasis Blood Disorders: No (ANEMIA) Adverse Reaction/Blood Tranf: No (HAS HAD BLOOD WITH NO REACTION) Family Medical History CAD Over 55 Years Old Physical Exam Vital Signs Vital Signs - First Documented 10/05/18 15:23 Temp 98.0 Pulse 98 Resp 18 B/P (MAP) 167/83 (111) Pulse Ox 96 O2 Delivery Room Air Capillary Refill : Height, Weight, BMI Height: 6'3.00" Weight: 212lbs. 1.0oz. 96.557691nu; 26.5 BMI Method: General Appearance: No Apparent Distress, WD/WN, Other (alert and oriented GCS 15 pleasant no distress. Blood pressure 147/85 on arrival, heart rate in the 80s.) Eyes: Bilateral Eye Normal Inspection, Bilateral Eye PERRL, Bilateral Eye EOMI HEENT: PERRL/EOMI, Other (pale conjunctiva) Neck: Full Range of Motion, Normal Inspection Respiratory: Lungs Clear, No Accessory Muscle Use, No Respiratory Distress Cardiovascular: Regular Rate, Rhythm, Normal Peripheral Pulses Gastrointestinal: Normal Bowel Sounds, Non Tender, Soft Neurologic/Psychiatric: Alert, Oriented x3 Skin: Normal Color, Warm/Dry Progress/Results/Core Measures Suspected Sepsis SIRS Temperature: Pulse: Respiratory Rate: Laboratory Tests 10/05/18 15:29: White Blood Count 9.2 Blood Pressure / Mean: Laboratory Tests 10/05/18 15:29: Creatinine 1.26, Platelet Count 532H, Total Bilirubin 0.2 Results/Orders Lab Results Laboratory Tests Test 10/05/18 15:29 Range/Units White Blood Count 9.2 4.3-11.0 10^3/uL Red Blood Count 3.19 L 4.35-5.85 10^6/uL Hemoglobin 7.5 L 13.3-17.7 G/DL Hematocrit 25 L 40-54 % Mean Corpuscular Volume 77 L 80-99 FL Mean Corpuscular Hemoglobin 24 L 25-34 PG Mean Corpuscular Hemoglobin Concent 31 L 32-36 G/DL Red Cell Distribution Width 14.4 10.0-14.5 % Platelet Count 532 H 130-400 10^3/uL Mean Platelet Volume 8.9 7.4-10.4 FL Neutrophils (%) (Auto) 64 42-75 % Lymphocytes (%) (Auto) 27 12-44 % Monocytes (%) (Auto) 5 0-12 % Eosinophils (%) (Auto) 3 0-10 % Basophils (%) (Auto) 0 0-10 % Neutrophils # (Auto) 5.9 1.8-7.8 X 10^3 Lymphocytes # (Auto) 2.5 1.0-4.0 X 10^3 Monocytes # (Auto) 0.5 0.0-1.0 X 10^3 Eosinophils # (Auto) 0.3 0.0-0.3 10^3/uL Basophils # (Auto) 0.0 0.0-0.1 10^3/uL Sodium Level 131 L 135-145 MMOL/L Potassium Level 4.3 3.6-5.0 MMOL/L Chloride Level 97 L 98-107 MMOL/L Carbon Dioxide Level 25 21-32 MMOL/L Anion Gap 9 5-14 MMOL/L Blood Urea Nitrogen 15 7-18 MG/DL Creatinine 1.26 0.60-1.30 MG/DL Estimat Glomerular Filtration Rate 57 BUN/Creatinine Ratio 12 Glucose Level 187 H 70-105 MG/DL Calcium Level 9.3 8.5-10.1 MG/DL Corrected Calcium 9.4 8.5-10.1 MG/DL Total Bilirubin 0.2 0.1-1.0 MG/DL Aspartate Amino Transf (AST/SGOT) 14 5-34 U/L Alanine Aminotransferase (ALT/SGPT) 12 0-55 U/L Alkaline Phosphatase 73 40-136 U/L Total Protein 7.4 6.4-8.2 GM/DL Albumin 3.9 3.2-4.5 GM/DL My Orders Orders - LUCA TOLLIVER APRN Cbc With Automated Diff (10/05/18 15:34) Comprehensive Metabolic Panel (10/05/18 15:34) Iv Heplock-Insert (Order) (10/05/18 15:34) Red Cells Leukocytes Reduced (10/05/18 16:06) Type And Screen (10/05/18 16:06) Vital Signs/I&O 10/05/18 15:23 Temp 98.0 Pulse 98 Resp 18 B/P (MAP) 167/83 (111) Pulse Ox 96 O2 Delivery Room Air Capillary Refill : Departure Communication (Admissions) [id number] discussed the case with his surgeon Dr. Osorio. Recommends transfusing 2 units of packed red cells been discharged home to proceed with plan for partial colectomy on Monday. I discussed this plan with the patient and his , both of whom are in agreement with this plan. We will transfer him to the outpatient department for 2 units of packed red cells then discharge Impression Primary Impression: Symptomatic anemia Disposition: ADMITTED INPATIENT Condition: Stable Departure-Patient Inst. Decision time for Depature: 16:10 Referrals: EMIL RITTER MD (PCP/Family) Primary Care Physician Patient Instructions: Blood Transfusion Add. Discharge Instructions: 1. Go from here to the outpatient department for 2 units of red blood cells transfusion. Return on Monday as scheduled for the surgical procedure. Return to the emergency room in the meantime for any concerns. All discharge instructions reviewed with patient and/or family. Voiced understanding. LUCA TOLLIVER APRN Oct 05, 2018 15:39
[2018-10-05 15:44] LABS: BASOPHILS % (AUTO) 0 % (0-10); EOSINOPHILS # (AUTO) 0.3 10^3/uL (0.0-0.3); EOSINOPHILS % (AUTO) 3 % (0-10); HEMATOCRIT 25 % (40-54); HEMOGLOBIN 7.5 G/DL (13.3-17.7); LYMPHOCYTES # (AUTO) 2.5 X 10^3 (1.0-4.0); LYMPHOCYTES % (AUTO) 27 % (12-44); MEAN CORPUSCULAR HEMOGLOBIN 24 PG (25-34); MEAN CORPUSCULAR HGB CONC 31 G/DL (32-36); MEAN CORPUSCULAR VOLUME 77 FL (80-99); MEAN PLATELET VOLUME 8.9 FL (7.4-10.4); MONOCYTES # (AUTO) 0.5 X 10^3 (0.0-1.0); MONOCYTES % (AUTO) 5 % (0-12); NEUTROPHILS # (AUTO) 5.9 X 10^3 (1.8-7.8); NEUTROPHILS % (AUTO) 64 % (42-75); PLATELET COUNT 532 10^3/uL (130-400); RED CELL DISTRIBUTION WIDTH 14.4 % (10.0-14.5); WHITE BLOOD COUNT 9.2 10^3/uL (4.3-11.0)
[2018-10-05 15:57] LABS: ALBUMIN 3.9 GM/DL (3.2-4.5); BILIRUBIN,TOTAL 0.2 MG/DL (0.1-1.0); CALCIUM 9.3 MG/DL (8.5-10.1); CREATININE SERUM 1.26 MG/DL (0.60-1.30); POTASSIUM 4.3 MMOL/L (3.6-5.0); TOTAL PROTEIN 7.4 GM/DL (6.4-8.2)
[2018-10-05 16:24] VITALS: BP 124/74
--- NOTE | 2018-10-05 16:34 | NUR ---
HOUSE SUP WILL GET ROOM TO GIVE BLOOD.
--- NOTE | 2018-10-05 17:00 | NUR ---
PATIENT WILL GO TO ICU TO HAVE TRANFSION OP.
== END 2018-10-05 17:00 | disposition other institution (70) ==
LOC: EDUNIT# 15:17 → ER 15:20
DX: D64.9 Anemia, unspecified (principal); E03.9 Hypothyroidism, unspecified; I25.10 Atherosclerotic heart disease of native coronary artery without angina pectoris; E11.9 Type 2 diabetes mellitus without complications; E78.00 Pure hypercholesterolemia, unspecified; I10 Essential (primary) hypertension; Z98.890 Other specified postprocedural states; Z85.51 Personal history of malignant neoplasm of bladder; Z92.21 Personal history of antineoplastic chemotherapy; Z82.49 Family history of ischemic heart disease and other diseases of the circulatory system; Z85.038 Personal history of other malignant neoplasm of large intestine; Z95.5 Presence of coronary angioplasty implant and graft; Z86.718 Personal history of other venous thrombosis and embolism; Z86.711 Personal history of pulmonary embolism; Z79.82 Long term (current) use of aspirin; Z79.02 Long term (current) use of antithrombotics/antiplatelets; Z79.4 Long term (current) use of insulin; Z79.51 Long term (current) use of inhaled steroids; Z87.891 Personal history of nicotine dependence
CPT/HCPCS: 36415; 80053; 85025; 86850; 86900; 86901; 86920

== ENCOUNTER 2018-10-05 16:56 | Outpatient (CLI) | payer MEDICARE ==
[~2018-10-05] VITALS: Ht 190.5 cm; Wt 93.0 kg
[2018-10-05 17:13] VITALS: BP 99/69
[2018-10-05] MEDS ORDERED: NS (IVPB) 100 ML ONE (17:24)
[2018-10-05 20:58] VITALS: BP 125/73
== END 2018-10-05 20:58 | disposition home or self-care (01) ==
LOC: 4THo 16:56 → ICU 16:57 → 4THo 20:58
PROVIDERS: ATTEND Nurse Practitioner Family
DX: D64.9 Anemia, unspecified (principal)

== ENCOUNTER 2018-10-08 06:46 | Inpatient (IN) | payer MEDICARE ==
[~2018-10-08] VITALS: Ht 190.5 cm; Wt 91.2 kg
[2018-10-08] MEDS ORDERED: NS IV 1000 ML 1,000 ML IV SCH (07:00)
--- NOTE | 2018-10-08 07:00 | ED Syncope ---
General Chief Complaint: Dizziness/Syncope Stated Complaint: NEAR SYNCOPAL EPISODE History of Present Illness Date Seen by Provider: Oct 08, 2018 Time Seen by Provider: 06:57 Initial Comments pt due for colon resection at [address] cevallos primary is dr ritter pt has hx of cad off anticoag for five days. was doing colon prep this weekend, mostly clear liquidy stool today woke up was showering and shaving, and felt lightheaded like room spinning had near syncopal no head trauma initial bp in 70s for ems, currently in 90's. pt is doing well now, no chest pain or sob he feels better no abdo pain no melena or hematochezia. Allergies and Home Medications Allergies Coded Allergies: No Known Drug Allergies (Unverified , 10/04/18) Home Medications Aspirin 81 Mg Tablet.dr, 81 MG PO DAILY, (Reported) Atorvastatin Calcium 40 Mg Tablet, 40 MG PO HS, (Reported) Azelaic Acid 50 Gm Gel..gram., TP DAILY PRN for PSORIASIS, (Reported) Chlorpheniramine Maleate 4 Mg Tablet, 4 MG PO DAILY, (Reported) Chlorpheniramine Maleate 4 Mg Tablet, 4 MG PO BID PRN for DRAINAGE, (Reported) Clopidogrel Bisulfate 75 Mg Tablet, 75 MG PO HS, (Reported) Cyanocobalamin (Vitamin B-12) 1,000 Mcg Tablet, 1,000 MCG PO DAILY, (Reported) Ferrous Sulfate 325 Mg Tablet, 325 MG PO TID, (Reported) Fluticasone Propionate 9.9 Ml [place].susp, 2 SPRAY NS DAILY PRN for ALLERGIES, ( Reported) Glipizide 10 Mg Tablet, 10 MG PO BID, (Reported) Hydrocortisone Acetate 28 Gm Oint...g., TP DAILY PRN for PSORIASIS, (Reported) Levothyroxine Sodium 112 Mcg Tablet, 112 MCG PO DAILY, (Reported) Metformin HCl 1,000 Mg Tablet, 1,000 MG PO BID, (Reported) Metronidazole 45 Gm Cream..g., TP DAILY PRN for PSORIASIS, (Reported) Pantoprazole Sodium 40 Mg Tablet.dr, 40 MG PO DAILY, (Reported) Pimecrolimus 30 Gm Cream.gm., TP DAILY PRN for PSORIASIS, (Reported) Pioglitazone HCl 30 Mg Tablet, 30 MG PO HS, (Reported) Sitagliptin Phosphate 100 Mg Tablet, 100 MG PO DAILY, (Reported) Patient Home Medication List Home Medication List Reviewed: Yes Review of Systems Constitutional: no symptoms reported Respiratory: no symptoms reported Cardiovascular: no symptoms reported All Other Systems Reviewed Negative Unless Noted: Yes Past Eiuxolb-Mxvdrz-Fsboqi Hx Past Med/Social Hx: Reviewed Nursing Past Med/Soc Hx Patient Social History Alcohol Beverage of Choice: [place] Type Used: Cigarettes Former Smoker, Quit: Jul 04, 1980 2nd Hand Smoke Exposure: Yes Recent Foreign Travel: No Contact w/Someone Who Travel: No Recent Hopitalizations: Yes (JUL 2018-LOW B/P, ANEMIA) Immunizations Up To Date Tetanus Booster (TDap): Unknown Date of Pneumonia Vaccine: Jul 26, 2016 Date of Influenza Vaccine: May 04, 2018 Seasonal Allergies Seasonal Allergies: No Past Medical History Surgeries: Yes (BLADDER SURGERY-CANCER, ) Cardiac Respiratory: Yes Pulmonary Embolism Currently Using CPAP: No Currently Using BIPAP: No Cardiac: Yes (stents in 1996, ANGIOPLASTY 06/2018) Coronary Artery Disease, High Cholesterol, Hypertension Neurological: No Genitourinary: Yes (bladder cancer in past) Bladder Infection Gastrointestinal: Yes (COLON CA) Musculoskeletal: No Endocrine: Yes Diabetes, Non-Insulin dep HEENT: Yes (GLASSES) Cataract Loss of Vision: Bilateral Hearing Impairment: Denies Cancer: Yes Bladder, Colon Did You Recieve Any Treatments: Yes What Type of Treatment Did You: Chemotherapy, Surgical Intervention Psychosocial: No Integumentary: Yes Psoriasis Blood Disorders: No (ANEMIA) Adverse Reaction/Blood Tranf: No (HAS HAD BLOOD WITH NO REACTION) Family Medical History CAD Over 55 Years Old Physical Exam Vital Signs Vital Signs - First Documented 10/08/18 06:46 Temp 96.0 Pulse 78 Resp 16 B/P (MAP) 96/54 (68) Pulse Ox 100 O2 Delivery Nasal Cannula Capillary Refill : Height, Weight, BMI Height: 6'3.00" Weight: 205lbs. 0.0oz. 92.074361te; 26.5 BMI Method:Stated General Appearance: No Apparent Distress, WD/WN HEENT: PERRL/EOMI, TMs Normal, Normal ENT Inspection, Pharynx Normal Neck: Full Range of Motion, Normal Inspection, Non Tender, Supple Cardiovascular: Regular Rate, Rhythm, No Edema, No Gallop, No JVD, No Murmur, Normal Peripheral Pulses Respiratory: Chest Non Tender, Lungs Clear, Normal Breath Sounds, No Accessory Muscle Use, No Respiratory Distress Gastrointestinal: No Organomegaly, No Pulsatile Mass, Non Tender, Soft Extremities: Normal Capillary Refill, Normal Inspection, Normal Range of Motion , Non Tender, No Calf Tenderness, No Pedal Edema Neurologic/Psychiatric: Alert, Oriented x3, No Motor/Sensory Deficits, Normal Mood/Affect Cranial Nerves: Normal Hearing, Normal Speech, PERRL Motor/Sensory: No Motor Deficit, No Sensory Deficit Reflexes: 3+ Bicep (R), 3+ Bicep (L), 3+ Tricep (R), 3+ Tricep (L), 3+ Knee (R) , 3+ Knee (L), 3+ Ankle (R), 3+ Ankle (L) Skin: Warm/Dry, Cool, Pallor Lymphatic: No Adenopathy Progress/Results/Core Measures Results/Orders Lab Results Laboratory Tests Test 10/08/18 07:10 Range/Units White Blood Count 9.4 4.3-11.0 10^3/uL Red Blood Count 4.40 4.35-5.85 10^6/uL Hemoglobin 10.6 #L 13.3-17.7 G/DL Hematocrit 35 L 40-54 % Mean Corpuscular Volume 79 L 80-99 FL Mean Corpuscular Hemoglobin 24 L 25-34 PG Mean Corpuscular Hemoglobin Concent 31 L 32-36 G/DL Red Cell Distribution Width 15.2 H 10.0-14.5 % Platelet Count 441 H 130-400 10^3/uL Mean Platelet Volume 8.7 7.4-10.4 FL Neutrophils (%) (Auto) 67 42-75 % Lymphocytes (%) (Auto) 23 12-44 % Monocytes (%) (Auto) 6 0-12 % Eosinophils (%) (Auto) 4 0-10 % Basophils (%) (Auto) 0 0-10 % Neutrophils # (Auto) 6.3 1.8-7.8 X 10^3 Lymphocytes # (Auto) 2.1 1.0-4.0 X 10^3 Monocytes # (Auto) 0.5 0.0-1.0 X 10^3 Eosinophils # (Auto) 0.4 H 0.0-0.3 10^3/uL Basophils # (Auto) 0.0 0.0-0.1 10^3/uL Prothrombin Time 13.5 12.2-14.7 SEC INR Comment 1.0 0.8-1.4 Sodium Level 129 L 135-145 MMOL/L Potassium Level 4.7 3.6-5.0 MMOL/L Chloride Level 92 L 98-107 MMOL/L Carbon Dioxide Level 15 L 21-32 MMOL/L Anion Gap 22 H 5-14 MMOL/L Blood Urea Nitrogen 10 7-18 MG/DL Creatinine 1.33 H 0.60-1.30 MG/DL Estimat Glomerular Filtration Rate 53 BUN/Creatinine Ratio 8 Glucose Level 176 H 70-105 MG/DL Calcium Level 9.4 8.5-10.1 MG/DL Corrected Calcium 9.4 8.5-10.1 MG/DL Magnesium Level 1.6 L 1.8-2.4 MG/DL Total Bilirubin 0.8 0.1-1.0 MG/DL Aspartate Amino Transf (AST/SGOT) 17 5-34 U/L Alanine Aminotransferase (ALT/SGPT) 14 0-55 U/L Alkaline Phosphatase 81 40-136 U/L Troponin T 17 H <=15 NG/L Total Protein 8.2 6.4-8.2 GM/DL Albumin 4.0 3.2-4.5 GM/DL My Orders Orders - ELMER STACY MD Cbc With Automated Diff (10/08/18 06:53) Magnesium (10/08/18 06:53) Chest 1 View Ap/Pa Only (10/08/18 06:53) Ekg Tracing (10/08/18 06:53) Comprehensive Metabolic Panel (10/08/18 06:53) Protime With Inr (10/08/18 06:53) Saline Lock/Iv-Start (10/08/18 06:53) Troponin T (10/08/18 06:53) Ns Iv 1000 Ml (Sodium Chloride 0.9%) (10/08/18 07:00) Type And Screen (10/08/18 06:53) Urinalysis (10/08/18 07:00) Vital Signs/I&O 10/08/18 06:46 Temp 96.0 Pulse 78 Resp 16 B/P (MAP) 96/54 (68) Pulse Ox 100 O2 Delivery Nasal Cannula Progress Progress Note : Progress Note known colon cancer due for resection at 9 am came in near syncope after bowel prep and npo status bp in 70's usual ER workup hydration ekg shows nsr first degree block rate 80 no ischemic changes noted. normal sailne given, bp normalized on reeval at 8 am 120's. has not urinated yet labs mild cr bump, trop T 17, barely past upper limit. likely from mild renal insuff. no chest pain doubt acs d/w [place] transfer to [facility] for cards consult, admit hospitalist likely do surgery tomorrow once cleared. d/w conte 8 am, admit, ns at 100/hr, cards consult, bridge orders. pt aware of plan Diagnostic Imaging Comments my interp neg cxr Departure Impression Primary Impression: Near syncope Disposition: ADMITTED INPATIENT Condition: Stable Admissions Decision to Admit Reason: Admit from ER (General) Decision to Admit/Date: Oct 08, 2018 Time/Decision to Admit Time: 08:09 Departure-Patient Inst. Referrals: MEIL RITTER MD (PCP/Family) Primary Care Physician ELMER STACY MD Oct 08, 2018 07:00
[2018-10-08 07:42] LABS: HEMATOCRIT 35 % (40-54); HEMOGLOBIN 10.6 G/DL (13.3-17.7); MEAN CORPUSCULAR HEMOGLOBIN 24 PG (25-34); MEAN CORPUSCULAR VOLUME 79 FL (80-99); WHITE BLOOD COUNT 9.4 10^3/uL (4.3-11.0)
[2018-10-08 07:43] LABS: BASOPHILS % (AUTO) 0 % (0-10); EOSINOPHILS % (AUTO) 4 % (0-10); LYMPHOCYTES # (AUTO) 2.1 X 10^3 (1.0-4.0); LYMPHOCYTES % (AUTO) 23 % (12-44); MEAN CORPUSCULAR HGB CONC 31 G/DL (32-36); MEAN PLATELET VOLUME 8.7 FL (7.4-10.4); MONOCYTES # (AUTO) 0.5 X 10^3 (0.0-1.0); MONOCYTES % (AUTO) 6 % (0-12); PLATELET COUNT 441 10^3/uL (130-400); RED CELL DISTRIBUTION WIDTH 15.2 % (10.0-14.5)
[2018-10-08 07:44] LABS: EOSINOPHILS # (AUTO) 0.4 10^3/uL (0.0-0.3); NEUTROPHILS # (AUTO) 6.3 X 10^3 (1.8-7.8); NEUTROPHILS % (AUTO) 67 % (42-75)
[2018-10-08 07:49] LABS: BILIRUBIN,TOTAL 0.8 MG/DL (0.1-1.0); CALCIUM 9.4 MG/DL (8.5-10.1); CREATININE SERUM 1.33 MG/DL (0.60-1.30); MAGNESIUM 1.6 MG/DL (1.8-2.4); POTASSIUM 4.7 MMOL/L (3.6-5.0); TOTAL PROTEIN 8.2 GM/DL (6.4-8.2)
--- NOTE | 2018-10-08 07:50 | Diagnostic Imaging Report ---
INDICATION: , History of adenocarcinoma of the colon. TECHNIQUE: Single view chest 7:04 AM. CORRELATION STUDY: 07/27/2018 FINDINGS: Heart size enlarged with presence of coronary artery stent. Vasculature overall stable. Lung dockery appearing generally clear. Density over the right lung apex laterally appears somewhat obscured by monitor lead. IMPRESSION: 1. Cardiac enlargement without failure. 2. Questionable nodular density of the right lung apex. This is partially obscured by overlying monitor lead. Particularly given history, consideration for short-term followup repeat two-view chest imaging after removal of the monitor leads would be recommended Dictated by: Dictated on workstation # [id number]
[2018-10-08 07:51] LABS: PROTHROMBIN TIME PATIENT 13.5 SEC (12.2-14.7)
[2018-10-08 09:50] VITALS: BP 127/62
--- NOTE | 2018-10-08 09:50 | NUR ---
Rio Hernandez] admitted to room 404-1, with an admitting diagnosis of near syncope, on 10/08/18 from [facility] via EMS, accompanied by family. RIO HERNANDEZ introduced to surroundings, call light, bed controls, phone, TV, temperature control, lights, meal times, smoking policy, visitor policy, side rail policy, bathrooms and showers. Patient Rights given to patient in the handbook. RIO HERNANDEZ verbalizes understanding that [facility] is not responsible for the loss or damage to any personal effects or valuables that are kept in the patients possession during their hospitalization. The following Patient Care Plans were discussed with the : Discharge Planning, pain management, medications, and dehydration. RIO HERNANDEZ verbalizes understanding of Interdisciplinary Patient Education. Patient and/or family were informed about the Rapid Response Team and its purpose.
--- NOTE | 2018-10-08 10:05 | History & Physical-Hospitalist ---
History of Present Illness HPI/Chief Complaint CC: Syncopal episode HPI: This is a 68-year-old white male known to me from prior admission to the hospital in July of this year for syncope with a past medical history of colon cancer set for colon resection today by Dr. Osorio who presented to [facility] after this event at home. He had completed a bowel prep and felt very weak and and dehydrated and felt like he was blacking out. He has a past medical history of stent placement in the coronary vessel in July 2018 in the midst of colon cancer diagnosis sent for treatment once the resection is complete. He had a small elevation in troponin T and was sent to the hospital for cardiology evaluation and surgery has been put on hold. Source: patient, family, RN/MD Exam Limitations: no limitations Date Seen 10/08/18 Time Seen by a Provider: 10:10 Attending Physician Stella Dempsey Pankaj K MD Referring Physician Date of Admission Oct 08, 2018 at 08:17 Home Medications & Allergies Home Medications Reviewed patient Home Medication Reconciliation performed by pharmacy medication reconciliations air and hydronic balancing technician and/or nursing. Patients Allergies have been reviewed. Allergies Allergies Coded Allergies No Known Drug Allergies (Unverified10/04/18) Past Svqqgtg-Dwtlot-Omygoi Hx Past Med/Social Hx: Reviewed Nursing Past Med/Soc Hx, Reviewed and Corrections made Patient Social History Marrital Status: Employed/Student: retired Alcohol Use: Occasionally Uses Number of Drinks Today: BB Alcohol Beverage of Choice: [place] Recreational Drug Use: No Smoking Status: Never a Smoker Former Smoker, Quit: Jul 04, 1980 Type Used: Cigarettes 2nd Hand Smoke Exposure: Yes Recent Foreign Travel: No Contact w/other who traveled: No Recent Hopitalizations: Yes (JUL 2018-LOW B/P, ANEMIA) Recent Infectious Disease Expo: No Immunizations Up To Date Tetanus Booster (TDap): Unknown Date of Pneumonia Vaccine: Jul 26, 2016 Date of Influenza Vaccine: May 04, 2018 Seasonal Allergies Seasonal Allergies: No Past Medical History Surgeries: Cardiac Currently Using CPAP: No Currently Using BIPAP: No Cardiac: Coronary Artery Disease, High Cholesterol, Hypertension Genitourinary: Bladder Infection Endocrine: Diabetes, Non-Insulin dep HEENT: Cataract Loss of Vision: Bilateral Hearing Impairment: Denies Cancer: Bladder, Colon Did You Recieve Any Treatments: Yes What Type of Treatment Did You: Chemotherapy, Surgical Intervention Skin/Integumentary: Psoriasis 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) Adverse Reaction to Blood [place]: No (HAS HAD BLOOD WITH NO REACTION) Family History CAD Over 55 Years Old Review of Systems Constitutional: see HPI, dizziness, malaise, weakness EENTM: no symptoms reported Respiratory: no symptoms reported Cardiovascular: no symptoms reported Gastrointestinal: diarrhea Genitourinary: decreased output Musculoskeletal: no symptoms reported Skin: no symptoms reported Psychiatric/Neurological: No Symptoms Reported All Other Systems Reviewed Negative Unless Noted: Yes Physical Exam Physical Exam Vital Signs Vital Signs - First Documented 10/08/18 06:46 Temp 96.0 Pulse 78 Resp 16 B/P (MAP) 96/54 (68) Pulse Ox 100 O2 Delivery Nasal Cannula Capillary Refill : Greater Than 3 Seconds Height, Weight, BMI Height: 6'3.00" Weight: 201lbs. 0.0oz. [id number]; 26.5 BMI Method:Stated General Appearance: No Apparent Distress, WD/WN, Chronically ill Neck: Full Range of Motion, Normal Inspection, Non Tender Respiratory: Chest Non Tender, Lungs Clear, Normal Breath Sounds, No Accessory Muscle Use, No Respiratory Distress Cardiovascular: Regular Rate, Rhythm, No Edema, No Gallop, No JVD, No Murmur, Normal Peripheral Pulses Gastrointestinal: Normal Bowel Sounds, No Organomegaly, No Pulsatile Mass, Non Tender, Soft Neurologic/Psychiatric: Alert, Oriented x3, No Motor/Sensory Deficits, Normal Mood/Affect Results Results/Procedures Labs Laboratory Tests 10/08/18 07:10 Patient resulted labs reviewed. Assessment/Plan Admission Diagnosis Assessment: Syncope w/h/o syncope 07/2018 assumed to be from dehydration and Cialis exposure ARF creat 1.3 Dehydration and electrolyte disturbance due to colon prep Elevated Troponin-T w/h/o stent in past Colon cancer in need of resection was to be done today by Dr Osorio Anemia s/p transfusion 07/2018 admit DM HLP DVT x 2 and PE in past s/p DC coumadin 07/2018 since risks for bleeding outweighed benefits Hypothyroidism h/o bladder cancer Plan: IVF Cardiology evaluation Keep colon clean NPO for colon resection reschedule hopefully tomorrow Monitor labs including creatinine Admission Status: Inpatient Order (span 2 midnights) Reason for Inpatient Admission: Sycope with elevated troponin Diagnosis/Problems Diagnosis/Problems (1) Syncope Status: Acute Qualifiers: Syncope type: vasovagal syncope Qualified Codes: R55 - Syncope and collapse (2) Colon cancer Status: Chronic Qualifiers: Colon location: unspecified part of colon Qualified Codes: C18.9 - Malignant neoplasm of colon, unspecified (3) GI bleed Status: Resolved (4) Iron deficiency anemia Status: Chronic Qualifiers: Iron deficiency anemia type: chronic blood loss Qualified Codes: D50.0 - Iron deficiency anemia secondary to blood loss (chronic) (5) Hx pulmonary embolism Status: Chronic (6) History of DVT of lower extremity Status: Chronic (7) Non-insulin dependent type 2 diabetes mellitus Status: Chronic (8) Erectile dysfunction Status: Chronic Qualifiers: Erectile dysfunction type: unspecified Qualified Codes: N52.9 - Male erectile dysfunction, unspecified (9) Hypotension Status: Resolved (10) Bladder cancer Status: Resolved Qualifiers: Bladder location: unspecified site Qualified Codes: C67.9 - Malignant neoplasm of bladder, unspecified Resolution Date/Time: 10/08/18 @ 12:34 (11) Hypothyroidism Status: Chronic Qualifiers: Hypothyroidism type: acquired Qualified Codes: E03.9 - Hypothyroidism, unspecified (12) CAD (coronary artery disease) Status: Chronic Qualifiers: Coronary Disease-Associated Artery/Lesion type: [place] artery [place] vs. transplanted heart: [place] heart Associated angina: without angina Qualified Codes: I25.10 - Atherosclerotic heart disease of [place] coronary artery without angina pectoris (13) Hyponatremia Status: Acute (14) Acute renal insufficiency Status: Acute STELLA DEMPSEY DO Oct 08, 2018 10:05
[2018-10-08] MEDS ORDERED: CATHETER FLUSH 10 ML SYR IV PRN (10:30)
--- NOTE | 2018-10-08 10:39 | Consultation-Cardiology ---
HPI-Cardiology Cardiology Consultation Date of Consultation 10/08/18 Date of Admission Time Seen by Provider: 10:33 Indication: coronary artery disease HPI 68 years old gentleman with extensive cardiac history, had multiple interventions in the past. Patient was noted to have significant GI blood loss and workup showed colon mass, he is scheduled for surgery today, was doing the prepped which resulted in diarrhea, this morning had dizzy spell and a syncopal episode, went to the emergency room, he was noted to be hypotensive and had elevated troponin T level. Denied any chest pain, no shortness of breath. No palpitation. Currently feeling well. He is still scheduled for surgery for today Home Medications & Allergies Allergies: Coded Allergies: No Known Drug Allergies (Unverified , 10/04/18) Home Medication List Reviewed: Yes COP-Clfsmy-Rukdnq Hx Patient Social History Marital Status: Employed/Student: retired Alcohol Use: Occasionally Uses Recreational Drug Use: No Type Used: Cigarettes 2nd Hand Smoke Exposure: Yes Recent Foreign Travel: No Recent Infectious Disease Expo: No Recent Hopitalizations: Yes (JUL 2018-LOW B/P, ANEMIA) Immunizations Up To Date Tetanus Booster (TDap): Unknown Date of Pneumonia Vaccine: Jul 26, 2016 Date of Influenza Vaccine: May 04, 2018 Past Medical History Past medical history as described Family Medical History Significant Family History: CAD Over 55 Years Old Family Medical Hx Noncontributory to his current condition Review of Systems Constitutional: see HPI, malaise EENTM: see HPI, no symptoms reported Respiratory: see HPI; No cough, No dyspnea on exertion, No hemoptysis, No orthopnea, No phlegm, No short of breath, No stridor, No wheezing, No other Cardiovascular: see HPI; No chest pain, No edema, No Hx of Intervention, No palpitations; syncope; No vascular heart diseas, No other Gastrointestinal: see HPI, diarrhea Genitourinary: no symptoms reported, see HPI Musculoskeletal: no symptoms reported, see HPI Skin: no symptoms reported, see HPI Psychiatric/Neurological: No Symptoms Reported, See HPI Reviewed Test Results Reviewed Test Results Lab Laboratory Tests Test 10/08/18 07:10 Range/Units White Blood Count 9.4 4.3-11.0 10^3/uL Red Blood Count 4.40 4.35-5.85 10^6/uL Hemoglobin 10.6 #L 13.3-17.7 G/DL Hematocrit 35 L 40-54 % Mean Corpuscular Volume 79 L 80-99 FL Mean Corpuscular Hemoglobin 24 L 25-34 PG Mean Corpuscular Hemoglobin Concent 31 L 32-36 G/DL Red Cell Distribution Width 15.2 H 10.0-14.5 % Platelet Count 441 H 130-400 10^3/uL Mean Platelet Volume 8.7 7.4-10.4 FL Neutrophils (%) (Auto) 67 42-75 % Lymphocytes (%) (Auto) 23 12-44 % Monocytes (%) (Auto) 6 0-12 % Eosinophils (%) (Auto) 4 0-10 % Basophils (%) (Auto) 0 0-10 % Neutrophils # (Auto) 6.3 1.8-7.8 X 10^3 Lymphocytes # (Auto) 2.1 1.0-4.0 X 10^3 Monocytes # (Auto) 0.5 0.0-1.0 X 10^3 Eosinophils # (Auto) 0.4 H 0.0-0.3 10^3/uL Basophils # (Auto) 0.0 0.0-0.1 10^3/uL Prothrombin Time 13.5 12.2-14.7 SEC INR Comment 1.0 0.8-1.4 Sodium Level 129 L 135-145 MMOL/L Potassium Level 4.7 3.6-5.0 MMOL/L Chloride Level 92 L 98-107 MMOL/L Carbon Dioxide Level 15 L 21-32 MMOL/L Anion Gap 22 H 5-14 MMOL/L Blood Urea Nitrogen 10 7-18 MG/DL Creatinine 1.33 H 0.60-1.30 MG/DL Estimat Glomerular Filtration Rate 53 BUN/Creatinine Ratio 8 Glucose Level 176 H 70-105 MG/DL Calcium Level 9.4 8.5-10.1 MG/DL Corrected Calcium 9.4 8.5-10.1 MG/DL Magnesium Level 1.6 L 1.8-2.4 MG/DL Total Bilirubin 0.8 0.1-1.0 MG/DL Aspartate Amino Transf (AST/SGOT) 17 5-34 U/L Alanine Aminotransferase (ALT/SGPT) 14 0-55 U/L Alkaline Phosphatase 81 40-136 U/L Troponin T 17 H <=15 NG/L Total Protein 8.2 6.4-8.2 GM/DL Albumin 4.0 3.2-4.5 GM/DL Physical Exam Vital Signs Vital Signs - First Documented 10/08/18 06:46 Temp 96.0 Pulse 78 Resp 16 B/P (MAP) 96/54 (68) Pulse Ox 100 O2 Delivery Nasal Cannula Capillary Refill : Greater Than 3 Seconds Height, Weight, BMI Height: 6'3.00" Weight: 201lbs. 0.0oz. 91.371740cj; 26.5 BMI Method:Stated General Appearance: No Apparent Distress, WD/WN Eyes: Bilateral Eye Normal Inspection, Bilateral Eye PERRL, Bilateral Eye EOMI HEENT: PERRL/EOMI, TMs Normal, Normal ENT Inspection, Pharynx Normal Neck: Full Range of Motion, Normal Inspection, Non Tender, Supple, Carotid Bruit Respiratory: Chest Non Tender, Lungs Clear, Normal Breath Sounds, No Accessory Muscle Use, No Respiratory Distress Cardiovascular: Regular Rate, Rhythm, No Edema, No Gallop, No JVD, No Murmur, Normal Peripheral Pulses Gastrointestinal: Normal Bowel Sounds, No Organomegaly, No Pulsatile Mass, Non Tender, Soft Back: Normal Inspection, No CVA Tenderness, No Vertebral Tenderness Extremity: Normal Capillary Refill, Normal Inspection, Normal Range of Motion, Non Tender, No Calf Tenderness, No Pedal Edema Neurologic/Psychiatric: Alert, Oriented x3, No Motor/Sensory Deficits, Normal Mood/Affect Skin: Normal Color, Warm/Dry Lymphatic: No Adenopathy A/P-Cardiology Admission Diagnosis Syncope Anemia Hypovolemia Colon cancer Assessment/Plan Syncope, orthostatic hypotension, secondary to hypovolemia, receiving IV fluid. Colon mass, scheduled for hemicolectomy, history of colon polypectomy in 2008, patient underwent colon prep. Managed by Dr. Osorio Anemia, secondary to GI loss secondary to the tumor. History of DVT and one episode of PE in the past and has been on coumadin for over 10 years, currently off Coumadin. Continue to monitor History of non-ST elevation myocardial infarction in June 2018, history of coronary artery disease, 2 stents placed in the late , cardiac catheterization was done in July 06, 2018 with Severe in-stent restenosis in the proximal and mid LAD, successful balloon angioplasty with multiple inflation at high pressure with excellent results using 2.515 mm balloon, Moderate to severe distal LAD stenosis that will be treated medically at this point. Severe proximal circumflex artery stenosis successful balloon angioplasty with excellent results. I was unable to advance stent to that area due to the angle of the origin of the circumflex artery, currently off aspirin and Plavix in preparation for the surgery Diabetes mellitus, followed and managed by primary care physician Hyperlipidemia maintained on Statin, continue to monitor Hypotension, monitor blood pressure. History of bladder cancer. Currently in remission Hypothyroidism, followed and managed by primary care physician Strong family history of heart disease with multiple family members with heart attack and bypass surgeries TAVON SUGGS MD Oct 08, 2018 10:39 am
--- NOTE | 2018-10-08 11:25 | NUR ---
HAD REVIEWED THE [facility] REC WITH THE PATIENT IN PREOP FOR UPCOMING SURGERY. I REVIEWED THEM THEY WERE REPORTED THEN.
[2018-10-08 12:00] VITALS: BP 123/71
[2018-10-08] MEDS: NS IV 1000 ML 1,000 ML IV SCH ×2 (12:05→21:28)
[2018-10-08 16:29] VITALS: BP 115/64
[2018-10-08 19:31] VITALS: BP 147/83
--- NOTE | 2018-10-08 20:09 | Consultation ---
History of Present Illness History of Present Illness Patient Consulted On(jim/time) 10/08/18 20:03 Date Seen by Provider: Oct 08, 2018 Time Seen by Provider: 12:15 Reason for Visit: coronary artery disease History of Present Illness consult requested by DR. Dempsey for colon cancer patient is a 68 year old male with right colon cancer. Patient was prepped yesterday for surgical intervention this morning. Patient had syncopal episode this morning was evaluated at [facility] emergency room. Was hypotensive which patient has been having regularly in the mornings. Patient also with blood transfusion on last Monday. Patient found to have elevated Tropin T. Dr. Melchor seeing. Patient with no chest pain or shortness of breath. Denies fever sweats chill. Allergies and Home Medications Allergies Coded Allergies: No Known Drug Allergies (Unverified , 10/04/18) Home Medications Aspirin 81 Mg Tablet.dr, 81 MG PO DAILY, (Reported) Atorvastatin Calcium 40 Mg Tablet, 40 MG PO HS, (Reported) Azelaic Acid 50 Gm Gel..gram., TP DAILY PRN for PSORIASIS, (Reported) Chlorpheniramine Maleate 4 Mg Tablet, 4 MG PO DAILY, (Reported) Chlorpheniramine Maleate 4 Mg Tablet, 4 MG PO BID PRN for DRAINAGE, (Reported) Clopidogrel Bisulfate 75 Mg Tablet, 75 MG PO HS, (Reported) Cyanocobalamin (Vitamin B-12) 1,000 Mcg Tablet, 1,000 MCG PO DAILY, (Reported) Ferrous Sulfate 325 Mg Tablet, 325 MG PO TID, (Reported) Fluticasone Propionate 9.9 Ml Capac.susp, 2 SPRAY NS DAILY PRN for ALLERGIES, ( Reported) Glipizide 10 Mg Tablet, 10 MG PO BID, (Reported) Hydrocortisone Acetate 28 Gm Oint...g., TP DAILY PRN for PSORIASIS, (Reported) Levothyroxine Sodium 112 Mcg Tablet, 112 MCG PO DAILY, (Reported) Metformin HCl 1,000 Mg Tablet, 1,000 MG PO BID, (Reported) Metronidazole 45 Gm Cream..g., TP DAILY PRN for PSORIASIS, (Reported) Pantoprazole Sodium 40 Mg Tablet.dr, 40 MG PO DAILY, (Reported) Pimecrolimus 30 Gm Cream.gm., TP DAILY PRN for PSORIASIS, (Reported) Pioglitazone HCl 30 Mg Tablet, 30 MG PO HS, (Reported) Sitagliptin Phosphate 100 Mg Tablet, 100 MG PO DAILY, (Reported) Patient Home Medication List Home Medication List Reviewed: Yes Past Dnklhfr-Hmuxpn-Uumbcl Hx Patient Social History Alcohol Use: Occasionally Uses Number of Drinks Today: BB Recreational Drug Use: No Smoking Status: Never a Smoker Former Smoker, Quit: Jul 04, 1980 Type Used: Cigarettes 2nd Hand Smoke Exposure: Yes Recent Foreign Travel: No Contact w/Someone Who Travel: No Recent Infectious Disease Expo: No Recent Hopitalizations: Yes (JUL 2018-LOW B/P, ANEMIA) Immunizations Up To Date Tetanus Booster (TDap): Unknown Date of Pneumonia Vaccine: Jul 26, 2016 Date of Influenza Vaccine: May 04, 2018 Seasonal Allergies Seasonal Allergies: No Surgeries History of Surgeries: Yes (BLADDER SURGERY-CANCER, ) Surgeries: Cardiac Respiratory History of Respiratory Disorde: Yes Respiratory Disorders: Pulmonary Embolism Cardiovascular History of Cardiac Disorders: Yes (stents in 1996, ANGIOPLASTY 06/2018) Cardiac Disorders: Coronary Artery Disease, High Cholesterol, Hypertension Neurological History of Neurological Disord: No Genitourinary History of Genitourinary Disor: Yes (bladder cancer in past) Genitourinary Disorders: Bladder Infection Gastrointestinal History of Gastrointestinal Di: Yes (COLON CA) Musculoskeletal History of Musculoskeletal Dis: No Endocrine History of Endocrine Disorders: Yes Endocrine Disorders: Diabetes, Non-Insulin dep HEENT History of HEENT Disorders: Yes (GLASSES) HEENT Disorders: Cataract Loss of Vision: Bilateral Hearing Impairment: Denies Cancer History of Cancer: Yes Cancer: Bladder, Colon Psychosocial History of Psychiatric Problem: No Integumentary History of Skin or Integumenta: Yes Skin/Integumentary Disorders: Psoriasis Blood Transfusions 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) Adverse Reaction to a Blood Tr: No (HAS HAD BLOOD WITH NO REACTION) Family Medical History Significant Family History: CAD Over 55 Years Old Review of Systems-General Constitutional: see HPI, dizziness EENTM: no symptoms reported Respiratory: no symptoms reported Cardiovascular: no symptoms reported Gastrointestinal: no symptoms reported Musculoskeletal: no symptoms reported Skin: no symptoms reported Psychiatric/Neurological: No Symptoms Reported Physical Exam-General Problems Physical Exam Vital Signs Vital Signs - First Documented 10/08/18 06:46 Temp 96.0 Pulse 78 Resp 16 B/P (MAP) 96/54 (68) Pulse Ox 100 O2 Delivery Nasal Cannula Capillary Refill : Greater Than 3 Seconds General Appearance: WD/WN, no apparent distress HEENT: PERRL/EOMI, normal ENT inspection Neck: non-tender, full range of motion, supple Respiratory: chest non-tender, no respiratory distress, no accessory muscle use Cardiovascular: regular rate, rhythm Gastrointestinal: non tender, soft, no organomegaly Rectal: deferred Back: no CVA tenderness Extremities: normal range of motion, non-tender, normal inspection, no pedal edema, no calf tenderness Neurologic/Psychiatric: clinical operations leader II-XII nml as tested, no motor/sensory deficits, alert, normal mood/affect, oriented x 3 Skin: normal color, warm/dry Lymphatic: no adenopathy Data Review Labs Laboratory Tests 10/08/18 07:10: White Blood Count 9.4, Red Blood Count 4.40, Hemoglobin 10.6#L, Hematocrit 35L, Mean Corpuscular Volume 79L, Mean Corpuscular Hemoglobin 24L, Mean Corpuscular Hemoglobin Concent 31L, Red Cell Distribution Width 15.2H, Platelet Count 441H, Mean Platelet Volume 8.7, Neutrophils (%) (Auto) 67, Lymphocytes (%) (Auto) 23, Monocytes (%) (Auto) 6, Eosinophils (%) (Auto) 4, Basophils (%) (Auto) 0, Neutrophils # (Auto) 6.3, Lymphocytes # (Auto) 2.1, Monocytes # (Auto) 0.5, Eosinophils # (Auto) 0.4H, Basophils # (Auto) 0.0, Prothrombin Time 13.5, INR Comment 1.0, Sodium Level 129L, Potassium Level 4.7, Chloride Level 92L, Carbon Dioxide Level 15L, Anion Gap 22H, Blood Urea Nitrogen 10, Creatinine 1.33H, Estimat Glomerular Filtration Rate 53, BUN/Creatinine Ratio 8, Glucose Level 176H, Calcium Level 9.4, Corrected Calcium 9.4, Magnesium Level 1.6L, Total Bilirubin 0.8, Aspartate Amino Transf (AST/SGOT) 17, Alanine Aminotransferase ( ALT/SGPT) 14, Alkaline Phosphatase 81, Troponin T 17H, Total Protein 8.2, Albumin 4.0 10/08/18 10:35: Troponin I < 0.028 10/08/18 11:46: Glucometer 147H 10/08/18 15:04: Troponin I < 0.028 10/08/18 16:03: Glucometer 156H Assessment/Plan Assessment/Plan Assessment/Plan right colon cancer coronary artery disease syncope anemia secondary to colon cancer elevated troponin T patient transferred and will have medicine/cardiology evaluate if okay to proceed with surgery will proceed today or tomorrow. if tomorrow can have clears and NPO after midnight patient in agreement with plan Clinical Quality Measures DVT/VTE Risk/Contraindication: Risk Factor Score Per Nursin RFS Level Per Nursing on Admit: 4+=Very High SRIKANTH AGUILAR DO Oct 08, 2018 20:09
[2018-10-09] VITALS: BP 133/68
[2018-10-09 03:54] VITALS: BP 136/69
[2018-10-09 06:09] LABS: BASOPHILS % (AUTO) 0 % (0-10); EOSINOPHILS # (AUTO) 0.4 10^3/uL (0.0-0.3); EOSINOPHILS % (AUTO) 6 % (0-10); HEMATOCRIT 27 % (40-54); HEMOGLOBIN 8.5 G/DL (13.3-17.7); LYMPHOCYTES # (AUTO) 2.1 X 10^3 (1.0-4.0); LYMPHOCYTES % (AUTO) 31 % (12-44); MEAN CORPUSCULAR HEMOGLOBIN 25 PG (25-34); MEAN CORPUSCULAR HGB CONC 32 G/DL (32-36); MEAN CORPUSCULAR VOLUME 79 FL (80-99); MEAN PLATELET VOLUME 8.6 FL (7.4-10.4); MONOCYTES # (AUTO) 0.4 X 10^3 (0.0-1.0); MONOCYTES % (AUTO) 6 % (0-12); NEUTROPHILS # (AUTO) 3.9 X 10^3 (1.8-7.8); NEUTROPHILS % (AUTO) 57 % (42-75); PLATELET COUNT 424 10^3/uL (130-400); RED CELL DISTRIBUTION WIDTH 15.7 % (10.0-14.5); WHITE BLOOD COUNT 6.9 10^3/uL (4.3-11.0)
[2018-10-09 07:31] VITALS: BP 122/63
[2018-10-09] MEDS: NS IV 1000 ML 1,000 ML IV SCH ×2 (07:42→16:47)
--- NOTE | 2018-10-09 08:25 | Cardiology Progress Note ---
Subjective Date Seen by Provider: Oct 09, 2018 Time Seen by Provider: 08:22 Subjective/Events-last exam No new complaints. Continues to have occasional dizziness. Denies any chest pain. Objective-Cardiology Exam Last Set of Vital Signs Vital Signs 10/09/18 07:31 Temp 96.7 Pulse 75 Resp 16 B/P (MAP) 122/63 (82) Pulse Ox 97 O2 Delivery Room Air Capillary Refill : Greater Than 3 Seconds I&O Intake and Output 10/09/18 00:00 Intake Total 1910 ml Balance 1910 ml Intake Oral 910 ml IV Total 1000 ml # Voids 2 # Bowel Movements 1 Daily Weight Change No No General: Alert, Oriented X3, Cooperative HEENT: Atraumatic, PERRLA Neck: Supple, No JVD, No Thyromegaly Lungs: Clear to Auscultation, Normal Air Movement Heart: Regular Rate, Normal S1, Normal S2, No Murmurs Abdomen: Normal Bowel Sounds, Soft, No Tenderness, No Hepatosplenomegaly, No Masses Extremities: No Clubbing, No Cyanosis, No Edema, Normal Pulses, No Tenderness/ Swelling Skin: No Rashes, No Breakdown, No Significant Lesion Neuro: Normal Gait, Normal Speech, Strength at 5/5 X4 Ext, Normal Tone, Sensation Intact Psych/Mental Status: Mental Status NL, Mood NL Results Lab Laboratory Tests 10/09/18 05:58 A/P-Cardiology Admission Diagnosis Syncope Anemia Hypovolemia Colon cancer Assessment/Plan Syncope, orthostatic hypotension, secondary to hypovolemia, receiving IV fluid. Colon mass, scheduled for hemicolectomy today, history of colon polypectomy in 2008, patient underwent colon prep. Managed by Dr. Osorio Anemia, secondary to GI loss secondary to the tumor. H/H worse today, continue to monitor. History of DVT and one episode of PE in the past and has been on coumadin for over 10 years, currently off Coumadin. Continue to monitor History of non-ST elevation myocardial infarction in June 2018, history of coronary artery disease, 2 stents placed in the late , cardiac catheterization was done in July 06, 2018 with Severe in-stent restenosis in the proximal and mid LAD, successful balloon angioplasty with multiple inflation at high pressure with excellent results using 2.515 mm balloon, Moderate to severe distal LAD stenosis that will be treated medically at this point. Severe proximal circumflex artery stenosis successful balloon angioplasty with excellent results. Unable to advance stent to that area due to the angle of the origin of the circumflex artery, currently off aspirin and Plavix in preparation for the surgery. Diabetes mellitus, followed and managed by primary care physician Hyperlipidemia maintained on Statin, continue to monitor Hypotension, monitor blood pressure. History of bladder cancer. Currently in remission Hypothyroidism, followed and managed by primary care physician Strong family history of heart disease with multiple family members with heart attack and bypass surgeries Mildly elevated Troponin T, non diagnostic. Troponin I negative. Patient denies any chest pain. Preoperative cardiac clearance- overall patient is considered intermediate risk for perioperative cardiac clearance. Risks versus benefits of surgery deferred to surgeon. Continue to hold ASA and Plavix. Clinical Quality Measures DVT/VTE Risk/Contraindication: Risk Factor Score Per Nursin RFS Level Per Nursing on Admit: 4+=Very High RHYS LUTHER Oct 09, 2018 08:25
--- NOTE | 2018-10-09 09:39 | Progress Note-Hospitalist ---
Subjective HPI/CC On Admission Date Seen by Provider: Oct 09, 2018 Time Seen by Provider: 09:15 CC: Syncopal episode HPI: This is a 68-year-old white male known to me from prior admission to the hospital in July of this year for syncope with a past medical history of colon cancer set for colon resection today by Dr. Osorio who presented to [facility] after this event at home. He had completed a bowel prep and felt very weak and and dehydrated and felt like he was blacking out. He has a past medical history of stent placement in the coronary vessel in July 2018 in the midst of colon cancer diagnosis sent for treatment once the resection is complete. He had a small elevation in troponin T and was sent to the hospital for cardiology evaluation and surgery has been put on hold. Subjective/Events-last exam Pt doing well today. Preparing for colon cancer resection today at 11:[address] Osorio. Denies any pain. CBC reviewed. Maintain on IV fluids Does not have any concerns about surgery. Review of Systems General: Fatigue Objective Exam Vital Signs Vital Signs Date Time Temp Pulse Resp B/P (MAP) Pulse Ox O2 Delivery O2 Flow Rate FiO2 10/09/18 19:19 97.2 94 21 167/83 (111) 98 Room Air 10/09/18 16:18 2.00 Capillary Refill : Greater Than 3 Seconds General Appearance: No Apparent Distress, WD/WN, Chronically ill HEENT: PERRL/EOMI, TMs Normal, Normal ENT Inspection, Pharynx Normal Neck: Full Range of Motion, Normal Inspection, Non Tender Respiratory: Chest Non Tender, Lungs Clear, Normal Breath Sounds, No Accessory Muscle Use, No Respiratory Distress Cardiovascular: Regular Rate, Rhythm, No Edema, No Gallop, No JVD, No Murmur, Normal Peripheral Pulses Gastrointestinal: Normal Bowel Sounds, No Organomegaly, No Pulsatile Mass, Non Tender, Soft Back: Normal Inspection, No CVA Tenderness, No Vertebral Tenderness Extremity: Normal Capillary Refill, Normal Inspection, Normal Range of Motion, Non Tender, No Calf Tenderness, No Pedal Edema Neurologic/Psychiatric: Alert, Oriented x3, No Motor/Sensory Deficits, Normal Mood/Affect Reflexes: 3+ Bicep (R), 3+ Bicep (L), 3+ Tricep (R), 3+ Tricep (L), 3+ Knee (R) , 3+ Knee (L), 3+ Ankle (R), 3+ Ankle (L) Skin: Normal Color, Warm/Dry Lymphatic: No Adenopathy Results/Procedures Lab Laboratory Tests 10/09/18 05:58 Patient resulted labs reviewed. Assessment/Plan Assessment and Plan Assess & Plan/Chief Complaint Assessment: Syncope w/h/o syncope 07/2018 assumed to be from dehydration and Cialis exposure ARF creat 1.3 Dehydration and electrolyte disturbance due to colon prep Elevated Troponin-T w/h/o stent in past Colon cancer in need of resection was to be done today by Dr Osorio Anemia s/p transfusion 07/2018 admit DM HLP DVT x 2 and PE in past s/p DC coumadin 07/2018 since risks for bleeding outweighed benefits Hypothyroidism h/o bladder cancer Plan: IVF Cardiology evaluation is appreciated Colon resection rescheduled for today Monitor labs including creatinine Diagnosis/Problems Diagnosis/Problems (1) Syncope Status: Resolved Qualifiers: Syncope type: vasovagal syncope Qualified Codes: R55 - Syncope and collapse Resolution Date/Time: 10/09/18 @ 20:00 (2) Colon cancer Status: Chronic Qualifiers: Colon location: unspecified part of colon Qualified Codes: C18.9 - Malignant neoplasm of colon, unspecified (3) GI bleed Status: Resolved (4) Iron deficiency anemia Status: Chronic Qualifiers: Iron deficiency anemia type: chronic blood loss Qualified Codes: D50.0 - Iron deficiency anemia secondary to blood loss (chronic) (5) Hx pulmonary embolism Status: Chronic (6) History of DVT of lower extremity Status: Chronic (7) Non-insulin dependent type 2 diabetes mellitus Status: Chronic (8) Erectile dysfunction Status: Chronic Qualifiers: Erectile dysfunction type: unspecified Qualified Codes: N52.9 - Male erectile dysfunction, unspecified (9) Hypotension Status: Resolved (10) Bladder cancer Status: Resolved Qualifiers: Bladder location: unspecified site Qualified Codes: C67.9 - Malignant neoplasm of bladder, unspecified Resolution Date/Time: 10/08/18 @ 12:34 (11) Hypothyroidism Status: Chronic Qualifiers: Hypothyroidism type: acquired Qualified Codes: E03.9 - Hypothyroidism, unspecified (12) CAD (coronary artery disease) Status: Chronic Qualifiers: Coronary Disease-Associated Artery/Lesion type: [place] artery [place] vs. transplanted heart: [place] heart Associated angina: without angina Qualified Codes: I25.10 - Atherosclerotic heart disease of [place] coronary artery without angina pectoris (13) Hyponatremia Status: Acute (14) Acute renal insufficiency Status: Acute Clinical Quality Measures DVT/VTE Risk/Contraindication: Risk Factor Score Per Nursin RFS Level Per Nursing on Admit: 4+=Very High LEONARDO GARRIDO DO Oct 09, 2018 09:39
[2018-10-09] MEDS ORDERED: proPOfol 200 MG/20 ML (DIPRIVAN) VIAL IV ONE (10:37)
[2018-10-09] MEDS ORDERED: ROCURONIUM 10 MG/ML 5 ML SYRINGE IV ONE ×2 (10:37→14:25)
[2018-10-09] MEDS ORDERED: NEOSTIGMINE 1 MG/ML 5 ML SYRINGE ONE (10:37)
[2018-10-09] MEDS ORDERED: fentaNYL INJECTION 100 MCG/2 ML AMP ONE ×2 (10:37→14:04)
[2018-10-09] MEDS ORDERED: SEVOFLURANE (ULTANE) 15 ML INHAL SOLN ONE ×4 (10:37→15:10)
[2018-10-09] MEDS ORDERED: GLYCOPYRROLATE 0.2 MG/ML (ROBINUL) 2 ML VIAL ONE (10:37)
[2018-10-09] MEDS ORDERED: ONDANSETRON 4 MG/2 ML (SDV) Z0FRAN ONE ×2 (10:37→14:47)
[2018-10-09] MEDS ORDERED: LIDOCAINE PF 2% 5 ML (XYLOCAINE) VIAL ONE (10:37)
[2018-10-09] MEDS ORDERED: LIDOCAINE/EPI 1%-1:100,000 (XYLOCAINE) 20ML ONE (10:42)
[2018-10-09] MEDS ORDERED: BUPIVACAINE 0.5% 30 ML (SENSORCAINE) VIAL ONE ×3 (10:42→15:10)
[2018-10-09 11:10] VITALS: BP 159/70
--- NOTE | 2018-10-09 12:04 | NUR ---
OR NURSE HERE TO TAKE PATIENT TO SURGERY.
[2018-10-09] MEDS: LACTATED RINGERS 1,000 ML IV PRN ×2 (12:15→14:15)
[2018-10-09] MEDS ORDERED: MIDAZOLAM 2 MG/2 ML (VERSED) VIAL ONE (12:18)
--- NOTE | 2018-10-09 12:34 | Progress Note ---
Subjective Date Seen by a Provider: Oct 09, 2018 Time Seen by a Provider: 07:00 Subjective/Events-last exam Patient doing well no complaints. Ready for surgery. No dizziness or chest pain. Objective Exam Vital Signs Date Time Temp Pulse Resp B/P (MAP) Pulse Ox O2 Delivery O2 Flow Rate FiO2 10/09/18 11:10 97.2 79 16 159/70 (99) 99 Room Air 10/09/18 08:00 Room Air 10/09/18 07:31 96.7 75 16 122/63 (82) 97 Room Air 10/09/18 07:00 76 10/09/18 03:54 95.7 80 16 136/69 (91) 97 Room Air 10/09/18 01:00 80 10/09/18 00:00 96.7 79 16 133/68 (89) 96 Room Air 10/08/18 20:00 Room Air 10/08/18 19:31 97.0 76 16 147/83 (104) 100 Room Air 10/08/18 19:00 74 10/08/18 16:29 96.7 79 16 115/64 (81) 99 Room Air 10/08/18 13:28 81 I & O 10/09/18 07:00 Intake Total 1910 ml Balance 1910 ml Capillary Refill : Greater Than 3 Seconds General Appearance: No Apparent Distress, WD/WN, Chronically ill HEENT: PERRL/EOMI, TMs Normal, Normal ENT Inspection, Pharynx Normal Neck: Full Range of Motion, Normal Inspection, Non Tender Respiratory: Chest Non Tender, Lungs Clear, Normal Breath Sounds, No Accessory Muscle Use, No Respiratory Distress Cardiovascular: Regular Rate, Rhythm, No Edema, No Gallop, No JVD, No Murmur, Normal Peripheral Pulses Gastrointestinal: non tender, soft, no organomegaly Extremity: Normal Capillary Refill, Normal Inspection, Normal Range of Motion, Non Tender, No Calf Tenderness, No Pedal Edema Neurologic/Psychiatric: Alert, Oriented x3, No Motor/Sensory Deficits, Normal Mood/Affect Skin: Normal Color, Warm/Dry Lymphatic: No Adenopathy Results Lab Laboratory Tests 10/08/18 15:04: Troponin I < 0.028 10/08/18 16:03: Glucometer 156H 10/09/18 05:58: White Blood Count 6.9, Red Blood Count 3.43L, Hemoglobin 8.5L, Hematocrit 27L, Mean Corpuscular Volume 79L, Mean Corpuscular Hemoglobin 25, Mean Corpuscular Hemoglobin Concent 32, Red Cell Distribution Width 15.7H, Platelet Count 424H, Mean Platelet Volume 8.6, Neutrophils (%) (Auto) 57, Lymphocytes (%) (Auto) 31, Monocytes (%) (Auto) 6, Eosinophils (%) (Auto) 6, Basophils (%) (Auto) 0, Neutrophils # (Auto) 3.9, Lymphocytes # (Auto) 2.1, Monocytes # (Auto) 0.4, Eosinophils # (Auto) 0.4H, Basophils # (Auto) 0.0 Assessment/Plan Assessment/Plan Assessment/Plan right colon cancer coronary artery disease syncope anemia secondary to colon cancer elevated troponin T patient for laparoscopic right colon resection all other indicated procedures today. Clinical Quality Measures DVT/VTE Risk/Contraindication: Risk Factor Score Per Nursin RFS Level Per Nursing on Admit: 4+=Very High SRIKANTH AGUILAR DO Oct 09, 2018 12:34
[2018-10-09] MEDS ORDERED: ceFAZolin INJECTION 2,000 MG ONE (12:38)
[2018-10-09] MEDS ORDERED: metroNIDAZOLE 500MG/100ML IVPB 100 ML ONE (12:38)
[2018-10-09] MEDS ORDERED: ceFAZolin INJECTION 1,000 MG VIAL IV ONE (14:00)
[2018-10-09] MEDS ORDERED: ATROPINE INJ 0.4 MG/ML SDV ONE (14:06)
[2018-10-09] MEDS ORDERED: morphine INJ 10 MG/ML 1ML (SYR OR VIAL) ONE (14:47)
[2018-10-09] MEDS ORDERED: HYDROmorphone 2 MG/ML VIAL (DILAUDID) IV ONE (15:15)
[2018-10-09] MEDS ORDERED: ONDANSETRON 4 MG/2 ML (SDV) Z0FRAN IVP PRN ×2 (15:15→15:45)
[2018-10-09] MEDS ORDERED: morphine INJ 10 MG/ML 1ML (SYR OR VIAL) IVP ONE (15:15)
--- NOTE | 2018-10-09 15:38 | Progress Note-Post Operative ---
Post-Operative Progess Note Surgeon (s)/Principal Scientist (s) Surgeon SRIKANTH AGUILAR DO Principal Scientist: Dr. Cheung Pre-Operative Diagnosis right colon cancer Post-Operative Diagnosis same Procedure & Operative Findings Date of Procedure 10/09/18 Procedure Performed/Findings lap hand assisted right colon resection with mobilization hepatic flexure Anesthesia Type gen Estimated Blood Loss Estimated blood loss (mL): min Specimens/Packing Specimens Removed right colon, terminal ileum, appendix SRIKANTH AGUILAR DO Oct 09, 2018 15:38
[2018-10-09] MEDS ORDERED: morphine INJ 10 MG/ML 1ML (SYR OR VIAL) IVP PRN (15:45)
[2018-10-09] MEDS: LACTATED RINGERS 1,000 ML IV SCH (15:48)
--- NOTE | 2018-10-09 16:15 | NUR ---
PATIENT BROUGHT TO FLOOR BY PACU NURSE. BEDSIDE REPORT RECEIVED AND INCISION DRESSINGS INSPECTED.
[2018-10-09 16:18] VITALS: BP 145/69
[2018-10-09] MEDS: HYDROcodone/APAP 5 MG/325 MG (LORTAB) TAB PO PRN ×2 (16:23→20:21)
[2018-10-09 19:19] VITALS: BP 167/83
[2018-10-09] MEDS: ceFAZolin 2 GM IV Premixed 50 ML IV SCH (20:19)
[2018-10-09] MEDS: metroNIDAZOLE 500MG/100ML IVPB 100 ML IV SCH (20:23)
--- NOTE | 2018-10-09 21:31 | OPERATIVE REPORT ---
DATE OF SERVICE: 10/09/2018 PREOPERATIVE DIAGNOSIS: Right colon cancer. POSTOPERATIVE DIAGNOSIS: Right colon cancer. PROCEDURE: Laparoscopic hand-assisted right colon resection with mobilization of hepatic flexure. SURGEON: Srikanth Osorio DO. PROCESSING SPECIALIST: Dr. Cheung, assisted in retraction, dissection, and closure. ANESTHESIA: General. ESTIMATED BLOOD LOSS: Minimal. COMPLICATIONS: None. INDICATIONS: The patient is a 68-year-old male, found to have right colon mass, proved to be colon cancer. He understands risks and benefits of procedure and wished to proceed with procedure. Consent was signed and on the chart. DESCRIPTION OF PROCEDURE: The patient was taken to the operating suite, was prepped and draped in sterile fashion. Timeout was performed. A midline incision around the umbilicus was made for hand port to be placed. The Gelport was inserted in and secured. Prior to putting the cap on, a 5 mm incision was made in the suprapubic region and a 5 mm trocar was placed under visualization. The abdomen was then insufflated. Under direct visualization of the laparoscope, a 12 mm trocar was placed in the subxiphoid area. The colon was grasped, elevated and dissection was taken along the white line of [place], mobilizing the right colon. The hepatic flexure was mobilized using cautery and LigaSure. Once the colon was mobilized, it was brought up through the Gelport incision. A SONNY-75 blue stapler was then fired across the distal ileum and reload was fired across the colon distal to the mass. LigaSure was then used to dissect the mesentery until the colon was removed. The ileum, appendix, and right colon were removed. Using the SONNY stapler blue load, a [id number] anastomosis was created. A 3-0 Vicryl suture was placed as a crotch stitch. The mesentery was then closed using 3-0 Vicryl. The anastomosis was then placed back through the midline incision of the hand port. The anastomosis was widely patent. The bowel also had a viable appearance. The abdomen was then irrigated with copious amounts of irrigation and suction. The fascia was then closed using 1-0 looped PDS in a running fashion. The abdomen was reinsufflated. The midline incision was closed well. No other pathology noted. While the hand port was being used, the liver had a smooth contour. No palpable masses, but the liver visually did have some very mild rough appearance. The trocars were removed. The fascia was closed using 3-0 Vicryl. The skin on all the incisions was stapled closed. The areas were washed and dried and sterile bandages were applied. The patient tolerated the procedure well without complications, taken to recovery room in stable condition. Job ID: [id number] DocumentID: [id number] Dictated Date: 10/09/2018 20:13:35 Stockbroker Date: 10/09/2018 21:31:31 Dictated By: SRIKANTH OSORIO DO
[2018-10-10] VITALS (10 sets, daily range): BP systolic 99–153; BP diastolic 56–69
[2018-10-10] MEDS: HYDROcodone/APAP 5 MG/325 MG (LORTAB) TAB PO PRN ×4 (00:15→20:38)
[2018-10-10] MEDS: LACTATED RINGERS 1,000 ML IV SCH ×3 (00:19→15:48)
[2018-10-10] MEDS: NS IV 1000 ML 1,000 ML IV SCH ×2 (01:50→12:50)
[2018-10-10 04:37] LABS: BASOPHILS % (AUTO) 0 % (0-10); EOSINOPHILS # (AUTO) 0.1 10^3/uL (0.0-0.3); EOSINOPHILS % (AUTO) 1 % (0-10); HEMATOCRIT 28 % (40-54); HEMOGLOBIN 8.5 G/DL (13.3-17.7); LYMPHOCYTES # (AUTO) 1.5 X 10^3 (1.0-4.0); LYMPHOCYTES % (AUTO) 15 % (12-44); MEAN CORPUSCULAR HEMOGLOBIN 24 PG (25-34); MEAN CORPUSCULAR HGB CONC 31 G/DL (32-36); MEAN CORPUSCULAR VOLUME 79 FL (80-99); MONOCYTES # (AUTO) 0.4 X 10^3 (0.0-1.0); MONOCYTES % (AUTO) 4 % (0-12); NEUTROPHILS # (AUTO) 8.1 X 10^3 (1.8-7.8); NEUTROPHILS % (AUTO) 80 % (42-75); PLATELET COUNT 391 10^3/uL (130-400); RED CELL DISTRIBUTION WIDTH 15.4 % (10.0-14.5)
[2018-10-10] MEDS: ceFAZolin 2 GM IV Premixed 50 ML IV SCH (04:59)
[2018-10-10] MEDS: metroNIDAZOLE 500MG/100ML IVPB 100 ML IV SCH (04:59)
[2018-10-10 05:02] LABS: ALANINE AMINOTRANSFERASE 14 U/L (0-55); ALBUMIN 3.2 GM/DL (3.2-4.5); ALKALINE PHOSPHATASE 65 U/L (40-136); BILIRUBIN,TOTAL 0.3 MG/DL (0.1-1.0); BUN/CREATININE RATIO 8; CALCIUM 8.2 MG/DL (8.5-10.1); CARBON DIOXIDE 21 MMOL/L (21-32); CHLORIDE 103 MMOL/L (98-107); CREATININE SERUM 1.06 MG/DL (0.60-1.30); GFR ESTIMATED > 60; GLUCOSE 176 MG/DL (70-105); MAGNESIUM 1.4 MG/DL (1.8-2.4); POTASSIUM 4.2 MMOL/L (3.6-5.0); SODIUM 134 MMOL/L (135-145); TOTAL PROTEIN 6.2 GM/DL (6.4-8.2)
--- NOTE | 2018-10-10 07:26 | Anesthesia-General Post-Op ---
General Patient Condition Mental Status/LOC: Same as Preop Cardiovascular: Satisfactory Nausea/Vomiting: Absent Respiratory: Satisfactory Pain: Controlled Complications: Absent Post Op Complications Complications None Follow Up Care/Instructions Patient Instructions None needed. Anesthesia/Patient Condition Patient Condition Patient is doing well, no complaints, stable vital signs, no apparent adverse anesthesia problems. No complications reported per nursing. FARAZ ROBLES CRNA Oct 10, 2018 07:25
--- NOTE | 2018-10-10 08:34 | Cardiology Progress Note ---
Subjective Date Seen by Provider: Oct 10, 2018 Time Seen by Provider: 08:31 Subjective/Events-last exam Patient in bed. Denies any chest pain or dyspnea. Complaining of mild abdominal discomfort. Objective-Cardiology Exam Last Set of Vital Signs Vital Signs 10/09/18 10/10/18 10/10/18 16:18 04:00 07:00 Temp 97.8 Pulse 92 Resp 18 B/P (MAP) 100/62 (75) Pulse Ox 93 O2 Delivery Room Air O2 Flow Rate 2.00 Capillary Refill : Greater Than 3 Seconds I&O Intake and Output 10/10/18 00:00 Intake Total 1400 ml Output Total 1375 ml Balance 25 ml Intake Oral 300 ml IV Total 1100 ml Output Urine Total 1375 ml # Voids 2 General: Alert, Oriented X3, Cooperative HEENT: Atraumatic, PERRLA Neck: Supple, No JVD, No Thyromegaly Lungs: Clear to Auscultation, Normal Air Movement Heart: Regular Rate, Normal S1, Normal S2, No Murmurs Abdomen: Normal Bowel Sounds, Soft, No Tenderness, No Hepatosplenomegaly, No Masses Extremities: No Clubbing, No Cyanosis, No Edema, Normal Pulses, No Tenderness/ Swelling Skin: No Rashes, No Breakdown, No Significant Lesion Neuro: Normal Gait, Normal Speech, Strength at 5/5 X4 Ext, Normal Tone, Sensation Intact Psych/Mental Status: Mental Status NL, Mood NL Results Lab Laboratory Tests 10/10/18 03:30 A/P-Cardiology Admission Diagnosis Syncope Anemia Hypovolemia Colon cancer Assessment/Plan Syncope, orthostatic hypotension, secondary to hypovolemia, receiving IV fluid. Colon mass,s/p hemicolectomy yesterday. Recovering. Management per Dr. Osorio. Anemia, secondary to GI loss secondary to the tumor. H/H stable, continue to monitor. History of DVT and one episode of PE in the past and has been on coumadin for over 10 years, currently off Coumadin. Continue to monitor History of non-ST elevation myocardial infarction in June 2018, history of coronary artery disease, 2 stents placed in the late , cardiac catheterization was done in July 06, 2018 with Severe in-stent restenosis in the proximal and mid LAD, successful balloon angioplasty with multiple inflation at high pressure with excellent results using 2.515 mm balloon, Moderate to severe distal LAD stenosis that will be treated medically at this point. Severe proximal circumflex artery stenosis successful balloon angioplasty with excellent results. Unable to advance stent to that area due to the angle of the origin of the circumflex artery. Diabetes mellitus, followed and managed by primary care physician Hyperlipidemia maintained on Statin, continue to monitor Hypotension, monitor blood pressure. History of bladder cancer. Currently in remission Hypothyroidism, followed and managed by primary care physician Strong family history of heart disease with multiple family members with heart attack and bypass surgeries Clinical Quality Measures DVT/VTE Risk/Contraindication: Risk Factor Score Per Nursin RFS Level Per Nursing on Admit: 4+=Very High RHYS LUTHER Oct 10, 2018 08:34
--- NOTE | 2018-10-10 10:21 | Progress Note-Hospitalist ---
Subjective HPI/CC On Admission Date Seen by Provider: Oct 10, 2018 Time Seen by Provider: 09:30 CC: Syncopal episode HPI: This is a 68-year-old white male known to me from prior admission to the hospital in July of this year for syncope with a past medical history of colon cancer set for colon resection today by Dr. Osorio who presented to [facility] after this event at home. He had completed a bowel prep and felt very weak and and dehydrated and felt like he was blacking out. He has a past medical history of stent placement in the coronary vessel in July 2018 in the midst of colon cancer diagnosis sent for treatment once the resection is complete. He had a small elevation in troponin T and was sent to the hospital for cardiology evaluation and surgery has been put on hold. Subjective/Events-last exam Pt doing well since colon cancer resection. Talked to him about ambulation and return of bowel function in resolution of ileus. Labs reviewed all stable. No fever. Using IS. Review of Systems General: Fatigue Gastrointestinal: Abdominal Pain Objective Exam Vital Signs Vital Signs Date Time Temp Pulse Resp B/P (MAP) Pulse Ox O2 Delivery O2 Flow Rate FiO2 10/10/18 20:00 Room Air 10/10/18 18:35 98.1 87 18 153/69 96 10/09/18 16:18 2.00 Capillary Refill : Greater Than 3 Seconds General Appearance: No Apparent Distress, WD/WN, Chronically ill HEENT: PERRL/EOMI, TMs Normal, Normal ENT Inspection, Pharynx Normal Neck: Full Range of Motion, Normal Inspection, Non Tender Respiratory: Chest Non Tender, Lungs Clear, Normal Breath Sounds, No Accessory Muscle Use, No Respiratory Distress Cardiovascular: Regular Rate, Rhythm, No Edema, No Gallop, No JVD, No Murmur, Normal Peripheral Pulses Gastrointestinal: Abnormal Bowel Sounds, Distended, Tenderness Back: Normal Inspection, No CVA Tenderness, No Vertebral Tenderness Extremity: Normal Capillary Refill, Normal Inspection, Normal Range of Motion, Non Tender, No Calf Tenderness, No Pedal Edema Neurologic/Psychiatric: Alert, Oriented x3, No Motor/Sensory Deficits, Normal Mood/Affect Reflexes: 3+ Bicep (R), 3+ Bicep (L), 3+ Tricep (R), 3+ Tricep (L), 3+ Knee (R) , 3+ Knee (L), 3+ Ankle (R), 3+ Ankle (L) Skin: Normal Color, Warm/Dry Lymphatic: No Adenopathy Results/Procedures Lab Laboratory Tests 10/10/18 03:30 Patient resulted labs reviewed. Assessment/Plan Assessment and Plan Assess & Plan/Chief Complaint Assessment: Colon cancer s/p resection by Dr Osorio POD # 1 Post op ileus Syncope w/h/o syncope 07/2018 assumed to be from dehydration and Cialis exposure ARF creat 1.3 Dehydration and electrolyte disturbance due to colon prep Elevated Troponin-T w/h/o stent in past Anemia s/p transfusion 07/2018 admit DM HLP DVT x 2 and PE in past s/p DC coumadin 07/2018 since risks for bleeding outweighed benefits Hypothyroidism h/o bladder cancer Plan: IVF Cardiology evaluation is appreciated Colon resection successful Monitor labs including creatinine Diagnosis/Problems Diagnosis/Problems (1) Syncope Status: Resolved Qualifiers: Syncope type: vasovagal syncope Qualified Codes: R55 - Syncope and collapse Resolution Date/Time: 10/09/18 @ 20:00 (2) Colon cancer Status: Chronic Qualifiers: Colon location: unspecified part of colon Qualified Codes: C18.9 - Malignant neoplasm of colon, unspecified (3) GI bleed Status: Resolved (4) Iron deficiency anemia Status: Chronic Qualifiers: Iron deficiency anemia type: chronic blood loss Qualified Codes: D50.0 - Iron deficiency anemia secondary to blood loss (chronic) (5) Hx pulmonary embolism Status: Chronic (6) History of DVT of lower extremity Status: Chronic (7) Non-insulin dependent type 2 diabetes mellitus Status: Chronic (8) Erectile dysfunction Status: Chronic Qualifiers: Erectile dysfunction type: unspecified Qualified Codes: N52.9 - Male erectile dysfunction, unspecified (9) Hypotension Status: Resolved (10) Bladder cancer Status: Resolved Qualifiers: Bladder location: unspecified site Qualified Codes: C67.9 - Malignant neoplasm of bladder, unspecified Resolution Date/Time: 10/08/18 @ 12:34 (11) Hypothyroidism Status: Chronic Qualifiers: Hypothyroidism type: acquired Qualified Codes: E03.9 - Hypothyroidism, unspecified (12) CAD (coronary artery disease) Status: Chronic Qualifiers: Coronary Disease-Associated Artery/Lesion type: [place] artery [place] vs. transplanted heart: [place] heart Associated angina: without angina Qualified Codes: I25.10 - Atherosclerotic heart disease of [place] coronary artery without angina pectoris (13) Hyponatremia Status: Resolved Resolution Date/Time: 10/10/18 @ 20:41 (14) Acute renal insufficiency Status: Resolved Resolution Date/Time: 10/10/18 @ 20:41 Clinical Quality Measures DVT/VTE Risk/Contraindication: Risk Factor Score Per Nursin RFS Level Per Nursing on Admit: 4+=Very High LEONARDO GARRIDO DO Oct 10, 2018 10:21
--- NOTE | 2018-10-10 16:12 | Cardiology Progress Note ---
Subjective Date Seen by Provider: Oct 10, 2018 Time Seen by Provider: 16:10 Subjective/Events-last exam patient is laying down in bed, feeling better, belching, no bowel movement yet. No chest pain Review of Systems General: No Chills, No Night Sweats, No Fatigue, No Malaise, No Appetite, No Other HEENT: No Head Aches, No Visual Changes, No Eye Pain, No Ear Pain, No Dysphasia , No Sinus Congestion, No Post Nasal Drip, No Sore Throat, No Other Pulmonary: No Dyspnea, No Cough, No Pleuritic Chest Pain, No Other Cardiovascular: No: Chest Pain, Palpitations, Orthopnea, Paroxysmal Noc. Dyspnea, Edema, Lt Headedness, Other Objective-Cardiology Exam Last Set of Vital Signs Vital Signs 10/09/18 10/10/18 16:18 15:51 Temp 97.9 Pulse 87 Resp 18 B/P (MAP) 129/60 (83) Pulse Ox 95 O2 Delivery Room Air O2 Flow Rate 2.00 Capillary Refill : Greater Than 3 Seconds I&O Intake and Output 10/10/18 00:00 Intake Total 1400 ml Output Total 1375 ml Balance 25 ml Intake Oral 300 ml IV Total 1100 ml Output Urine Total 1375 ml # Voids 2 General: Alert, Oriented X3, Cooperative HEENT: Atraumatic, PERRLA Neck: Supple, No JVD, No Thyromegaly Lungs: Clear to Auscultation, Normal Air Movement Heart: Regular Rate, Normal S1, Normal S2, No Murmurs Abdomen: Soft, No Tenderness, No Hepatosplenomegaly, No Masses, Other ( decreased bowel sounds) Extremities: No Clubbing, No Cyanosis, No Edema, Normal Pulses, No Tenderness/ Swelling Skin: No Rashes, No Breakdown, No Significant Lesion Neuro: Normal Gait, Normal Speech, Strength at 5/5 X4 Ext, Normal Tone, Sensation Intact Psych/Mental Status: Mental Status NL, Mood NL Results Lab Laboratory Tests 10/10/18 03:30 A/P-Cardiology Admission Diagnosis Syncope Anemia Hypovolemia Colon cancer Assessment/Plan Syncope, orthostatic hypotension, secondary to hypovolemia, better at this time. Continue to monitor Colon mass,s/p hemicolectomy yesterday. Recovering. Management per Dr. Osorio. Anemia, secondary to GI loss secondary to the tumor. transfuse one unit of packed RBCs History of DVT and one episode of PE in the past and has been on coumadin for over 10 years, currently off Coumadin and I will keep him off Coumadin. History of non-ST elevation myocardial infarction in June 2018, history of coronary artery disease, 2 stents placed in the late , cardiac catheterization was done in July 06, 2018 with Severe in-stent restenosis in the proximal and mid LAD, successful balloon angioplasty with multiple inflation at high pressure with excellent results using 2.515 mm balloon, Moderate to severe distal LAD stenosis that will be treated medically at this point. Severe proximal circumflex artery stenosis successful balloon angioplasty with excellent results. Unable to advance stent to that area due to the angle of the origin of the circumflex artery, restart aspirin when okay by Dr. Osorio Diabetes mellitus, followed and managed by primary care physician Hyperlipidemia maintained on Statin, continue to monitor Hypotension, monitor blood pressure. History of bladder cancer. Currently in remission Hypothyroidism, followed and managed by primary care physician Strong family history of heart disease with multiple family members with heart attack and bypass surgeries Clinical Quality Measures DVT/VTE Risk/Contraindication: Risk Factor Score Per Nursin RFS Level Per Nursing on Admit: 4+=Very High TAVON SUGGS MD Oct 10, 2018 16:12
--- NOTE | 2018-10-10 19:56 | NUR ---
This RN contacted Dr. Osorio in reference to the patient not being able to urinate. Patient states he has tried several times to urinate and has been unable to since the catheter was taken out at [address] Osorio orders to straight cath PRN for urine above 400mls via bladder scan.
--- NOTE | 2018-10-10 21:43 | Progress Note ---
Subjective Date Seen by a Provider: Oct 10, 2018 Time Seen by a Provider: 07:45 Subjective/Events-last exam Patient pain controlled. No flatus or bm. Denies n/v fever sweats chills shortness of breath or chest pain. Ramos removed this morning. No new complaints. Objective Exam Vital Signs Date Time Temp Pulse Resp B/P (MAP) Pulse Ox O2 Delivery O2 Flow Rate FiO2 10/10/18 20:00 Room Air 10/10/18 20:00 97.8 90 20 142/64 (90) 95 Room Air 10/10/18 19:00 94 10/10/18 18:35 98.1 87 18 153/69 96 Room Air 10/10/18 16:35 98.2 79 18 133/67 95 Room Air 10/10/18 16:29 97.9 87 18 129/60 95 Room Air 10/10/18 15:51 97.9 87 18 129/60 (83) 95 Room Air 10/10/18 12:55 86 10/10/18 12:00 97.6 84 20 121/58 (79) 95 Room Air 10/10/18 08:00 Room Air 10/10/18 08:00 97.8 75 20 120/56 (77) 93 Room Air 10/10/18 07:00 92 10/10/18 04:00 97.8 96 18 100/62 (75) 93 Room Air 10/10/18 01:00 107 10/10/18 00:10 97.7 103 18 102/68 (79) 92 Room Air I & O 10/10/18 07:00 Intake Total 1700 ml Output Total 1675 ml Balance 25 ml Capillary Refill : Greater Than 3 Seconds General Appearance: No Apparent Distress, WD/WN HEENT: PERRL/EOMI, TMs Normal, Normal ENT Inspection, Pharynx Normal Neck: Full Range of Motion, Normal Inspection, Non Tender Respiratory: Chest Non Tender, No Accessory Muscle Use, No Respiratory Distress Cardiovascular: Regular Rate, Rhythm, Normal Peripheral Pulses Gastrointestinal: soft, no organomegaly, tenderness (incisional) Extremity: Normal Capillary Refill, Normal Inspection, Normal Range of Motion, Non Tender, No Calf Tenderness, No Pedal Edema Neurologic/Psychiatric: Alert, Oriented x3, No Motor/Sensory Deficits, Normal Mood/Affect Skin: Normal Color, Warm/Dry Lymphatic: No Adenopathy Results Lab Laboratory Tests 10/10/18 03:30: White Blood Count 10.0, Red Blood Count 3.52L, Hemoglobin 8.5L, Hematocrit 28L, Mean Corpuscular Volume 79L, Mean Corpuscular Hemoglobin 24L, Mean Corpuscular Hemoglobin Concent 31L, Red Cell Distribution Width 15.4H, Platelet Count 391, Mean Platelet Volume 9.0, Neutrophils (%) (Auto) 80H, Lymphocytes (%) (Auto) 15 , Monocytes (%) (Auto) 4, Eosinophils (%) (Auto) 1, Basophils (%) (Auto) 0, Neutrophils # (Auto) 8.1H, Lymphocytes # (Auto) 1.5, Monocytes # (Auto) 0.4, Eosinophils # (Auto) 0.1, Basophils # (Auto) 0.0, Sodium Level 134L, Potassium Level 4.2, Chloride Level 103, Carbon Dioxide Level 21, Anion Gap 10, Blood Urea Nitrogen 8, Creatinine 1.06, Estimat Glomerular Filtration Rate > 60, BUN/ Creatinine Ratio 8, Glucose Level 176H, Calcium Level 8.2L, Corrected Calcium 8.8, Magnesium Level 1.4L, Total Bilirubin 0.3, Aspartate Amino Transf (AST/SGOT ) 19, Alanine Aminotransferase (ALT/SGPT) 14, Alkaline Phosphatase 65, Total Protein 6.2L, Albumin 3.2 Assessment/Plan Assessment/Plan Assessment/Plan right colon cancer coronary artery disease syncope anemia secondary to colon cancer elevated troponin T s/p right colon resection with mobilization hepatic flexure ramos dc'd anemia replace 1 unit prbc per cardiology electrolyte replacement protocol clear liquids ambulate incentive spirometer repeat labs in am Clinical Quality Measures DVT/VTE Risk/Contraindication: Risk Factor Score Per Nursin RFS Level Per Nursing on Admit: 4+=Very High SRIKANTH AGUILAR DO Oct 10, 2018 21:43
[2018-10-11] VITALS: BP 151/76
[2018-10-11] MEDS: NS IV 1000 ML 1,000 ML IV SCH ×2 (01:03→13:04)
[2018-10-11 04:00] VITALS: BP 132/67
[2018-10-11 06:00] LABS: HEMOGLOBIN 8.3 G/DL (13.3-17.7); MEAN PLATELET VOLUME 8.7 FL (7.4-10.4); RED CELL DISTRIBUTION WIDTH 15.8 % (10.0-14.5); WHITE BLOOD COUNT 8.4 10^3/uL (4.3-11.0)
[2018-10-11 06:17] LABS: BUN/CREATININE RATIO 7; CALCIUM 8.1 MG/DL (8.5-10.1); CARBON DIOXIDE 21 MMOL/L (21-32); CHLORIDE 104 MMOL/L (98-107); CREATININE SERUM 0.87 MG/DL (0.60-1.30); GFR ESTIMATED > 60; GLUCOSE 159 MG/DL (70-105); MAGNESIUM 1.4 MG/DL (1.8-2.4); POTASSIUM 3.8 MMOL/L (3.6-5.0); SODIUM 130 MMOL/L (135-145)
--- NOTE | 2018-10-11 06:51 | NUR ---
Patient is straight cathed due to bladder scan showing 650 mls. 850 is drained.
--- NOTE | 2018-10-11 07:32 | Cardiology Progress Note ---
Subjective Date Seen by Provider: Oct 11, 2018 Time Seen by Provider: 07:30 Subjective/Events-last exam patient is in bed. Not passing gas. Having difficulty urinating. No chest pain Review of Systems General: No Chills, No Night Sweats, No Fatigue, No Malaise, No Appetite, No Other HEENT: No Head Aches, No Visual Changes, No Eye Pain, No Ear Pain, No Dysphasia , No Sinus Congestion, No Post Nasal Drip, No Sore Throat, No Other Pulmonary: No Dyspnea, No Cough, No Pleuritic Chest Pain, No Other Cardiovascular: No: Chest Pain, Palpitations, Orthopnea, Paroxysmal Noc. Dyspnea, Edema, Lt Headedness, Other Objective-Cardiology Exam Last Set of Vital Signs Vital Signs 10/09/18 10/11/18 16:18 04:00 Temp 99.3 Pulse 92 Resp 18 B/P (MAP) 132/67 (88) Pulse Ox 92 O2 Delivery Room Air O2 Flow Rate 2.00 Capillary Refill : Greater Than 3 Seconds I&O Intake and Output 10/11/18 00:00 Intake Total 1757 ml Output Total 1500 ml Balance 257 ml Intake Oral 1757 ml Output Urine Total 1500 ml General: Alert, Oriented X3, Cooperative HEENT: Atraumatic, PERRLA Neck: Supple, No JVD, No Thyromegaly Lungs: Clear to Auscultation, Normal Air Movement Heart: Regular Rate, Normal S1, Normal S2, No Murmurs Abdomen: Soft, No Tenderness, No Hepatosplenomegaly, No Masses, Other ( decreased bowel sounds) Extremities: No Clubbing, No Cyanosis, No Edema, Normal Pulses, No Tenderness/ Swelling Skin: No Rashes, No Breakdown, No Significant Lesion Neuro: Normal Gait, Normal Speech, Strength at 5/5 X4 Ext, Normal Tone, Sensation Intact Psych/Mental Status: Mental Status NL, Mood NL Results Lab Laboratory Tests 10/11/18 05:15 A/P-Cardiology Admission Diagnosis Syncope Anemia Hypovolemia Colon cancer Assessment/Plan Syncope, orthostatic hypotension, secondary to hypovolemia, better at this time. Continue to monitor Status post right hemicolectomy, recovering slowly, still not passing gas, managed by Dr. Osorio Anemia, received one unit packed RBCs yesterday, continue to monitor History of DVT and one episode of PE in the past and has been on Coumadin for over 10 years, currently off Coumadin and I will keep him off Coumadin. History of non-ST elevation myocardial infarction in June 2018, history of coronary artery disease, 2 stents placed in the late , cardiac catheterization was done in July 06, 2018 with Severe in-stent restenosis in the proximal and mid LAD, successful balloon angioplasty with multiple inflation at high pressure with excellent results using 2.515 mm balloon, Moderate to severe distal LAD stenosis that will be treated medically at this point. Severe proximal circumflex artery stenosis successful balloon angioplasty with excellent results. Unable to advance stent to that area due to the angle of the origin of the circumflex artery, restart aspirin when okay by Dr. Osorio Diabetes mellitus, followed and managed by primary care physician Hyperlipidemia maintained on Statin, continue to monitor Hypotension, monitor blood pressure. History of bladder cancer. Currently in remission Hypothyroidism, followed and managed by primary care physician Strong family history of heart disease with multiple family members with heart attack and bypass surgeries Clinical Quality Measures DVT/VTE Risk/Contraindication: Risk Factor Score Per Nursin RFS Level Per Nursing on Admit: 4+=Very High TAVON SUGGS MD Oct 11, 2018 07:32
[2018-10-11 08:00] VITALS: BP 151/75
--- NOTE | 2018-10-11 08:19 | Progress Note ---
Subjective Date Seen by a Provider: Oct 11, 2018 Time Seen by a Provider: 08:17 Subjective/Events-last exam Patient doing okay. Having difficulty urinating needing straight cath. Patient pain controlled. No flatus or bm. Tolerating clears. Denies n/v fever sweats chills shortness of breath or chest pain. Objective Exam Vital Signs Date Time Temp Pulse Resp B/P (MAP) Pulse Ox O2 Delivery O2 Flow Rate FiO2 10/11/18 04:00 99.3 92 18 132/67 (88) 92 Room Air 10/11/18 01:00 94 10/11/18 00:00 100.2 94 18 151/76 (101) 94 Room Air 10/10/18 20:00 Room Air 10/10/18 20:00 97.8 90 20 142/64 (90) 95 Room Air 10/10/18 19:00 94 10/10/18 18:35 98.1 87 18 153/69 96 Room Air 10/10/18 16:35 98.2 79 18 133/67 95 Room Air 10/10/18 16:29 97.9 87 18 129/60 95 Room Air 10/10/18 15:51 97.9 87 18 129/60 (83) 95 Room Air 10/10/18 12:55 86 10/10/18 12:00 97.6 84 20 121/58 (79) 95 Room Air I & O 10/11/18 07:00 Intake Total 2457 ml Output Total 2100 ml Balance 357 ml Capillary Refill : Greater Than 3 Seconds General Appearance: No Apparent Distress, WD/WN HEENT: PERRL/EOMI, TMs Normal, Normal ENT Inspection, Pharynx Normal Neck: Full Range of Motion, Normal Inspection, Non Tender Respiratory: Chest Non Tender, No Accessory Muscle Use, No Respiratory Distress Cardiovascular: Regular Rate, Rhythm, Normal Peripheral Pulses Gastrointestinal: soft, no organomegaly, tenderness (incisional, c/d/i) Extremity: Normal Capillary Refill, Normal Inspection, Normal Range of Motion, Non Tender, No Calf Tenderness, No Pedal Edema Neurologic/Psychiatric: Alert, Oriented x3, No Motor/Sensory Deficits, Normal Mood/Affect Skin: Normal Color, Warm/Dry Lymphatic: No Adenopathy Results Lab Laboratory Tests 10/11/18 05:15: White Blood Count 8.4, Red Blood Count 3.37L, Hemoglobin 8.3L, Hematocrit 26L, Mean Corpuscular Volume 78L, Mean Corpuscular Hemoglobin 25, Mean Corpuscular Hemoglobin Concent 32, Red Cell Distribution Width 15.8H, Platelet Count 316, Mean Platelet Volume 8.7, Sodium Level 130L, Potassium Level 3.8, Chloride Level 104, Carbon Dioxide Level 21, Anion Gap 5, Blood Urea Nitrogen 6L, Creatinine 0.87, Estimat Glomerular Filtration Rate > 60, BUN/Creatinine Ratio 7 , Glucose Level 159H, Calcium Level 8.1L, Magnesium Level 1.4L Assessment/Plan Assessment/Plan Assessment/Plan right colon cancer coronary artery disease syncope anemia secondary to colon cancer elevated troponin T s/p right colon resection with mobilization hepatic flexure urinary retention straight cathed, if needs again place ramos anemia monitor electrolyte replacement protocol clear liquids ambulate incentive spirometer repeat labs in am Clinical Quality Measures DVT/VTE Risk/Contraindication: Risk Factor Score Per Nursin RFS Level Per Nursing on Admit: 4+=Very High SRIKANTH AGUILAR DO Oct 11, 2018 08:19
[2018-10-11] MEDS: POTASSIUM CL 10MEQ/50ML IVPB 50 ML IV SCH (09:19)
[2018-10-11] MEDS: KCL 20 MEQ TAB (K-DUR) PO SCH (09:20)
[2018-10-11] MEDS: MAGNESIUM 1 GM/100 ML IVPB 100 ML IV SCH ×3 (09:54→11:28)
[2018-10-11] MEDS: HYDROcodone/APAP 5 MG/325 MG (LORTAB) TAB PO PRN ×2 (09:59→18:30)
--- NOTE | 2018-10-11 10:04 | Progress Note-Hospitalist ---
Subjective HPI/CC On Admission Date Seen by Provider: Oct 11, 2018 Time Seen by Provider: 09:45 CC: Syncopal episode HPI: This is a 68-year-old white male known to me from prior admission to the hospital in July of this year for syncope with a past medical history of colon cancer set for colon resection today by Dr. Osorio who presented to [facility] after this event at home. He had completed a bowel prep and felt very weak and and dehydrated and felt like he was blacking out. He has a past medical history of stent placement in the coronary vessel in July 2018 in the midst of colon cancer diagnosis sent for treatment once the resection is complete. He had a small elevation in troponin T and was sent to the hospital for cardiology evaluation and surgery has been put on hold. Subjective/Events-last exam Patient doing much better Not passing gas yet but urinating well Pain is controlled Using incentive spirometer Hyponatremia noted at 130 normal saline infusing now Review of Systems General: Fatigue Gastrointestinal: Abdominal Pain Objective Exam Vital Signs Vital Signs Date Time Temp Pulse Resp B/P (MAP) Pulse Ox O2 Delivery O2 Flow Rate FiO2 10/11/18 08:00 98.6 88 16 151/75 (100) 95 Room Air 10/09/18 16:18 2.00 Capillary Refill : Greater Than 3 Seconds General Appearance: No Apparent Distress, WD/WN HEENT: PERRL/EOMI, TMs Normal, Normal ENT Inspection, Pharynx Normal Neck: Full Range of Motion, Normal Inspection, Non Tender Respiratory: Chest Non Tender, No Accessory Muscle Use, No Respiratory Distress Cardiovascular: Regular Rate, Rhythm, Normal Peripheral Pulses Gastrointestinal: Abnormal Bowel Sounds, Distended, Tenderness Back: Normal Inspection, No CVA Tenderness, No Vertebral Tenderness Extremity: Normal Capillary Refill, Normal Inspection, Normal Range of Motion, Non Tender, No Calf Tenderness, No Pedal Edema Neurologic/Psychiatric: Alert, Oriented x3, No Motor/Sensory Deficits, Normal Mood/Affect Reflexes: 3+ Bicep (R), 3+ Bicep (L), 3+ Tricep (R), 3+ Tricep (L), 3+ Knee (R) , 3+ Knee (L), 3+ Ankle (R), 3+ Ankle (L) Skin: Normal Color, Warm/Dry Lymphatic: No Adenopathy Results/Procedures Lab Laboratory Tests 3/28/19 05:15 Patient resulted labs reviewed. Assessment/Plan Assessment and Plan Assess & Plan/Chief Complaint Assessment: Colon cancer s/p resection by Dr Osorio POD # 2 Post op ileus Syncope w/h/o syncope 07/2018 assumed to be from dehydration and Cialis exposure ARF creat 1.3 Dehydration and electrolyte disturbance due to colon prep Elevated Troponin-T w/h/o stent in past Anemia s/p transfusion 07/2018 admit DM HLP DVT x 2 and PE in past s/p DC coumadin 07/2018 since risks for bleeding outweighed benefits Hypothyroidism h/o bladder cancer Hyponatremia Plan: IVF Cardiology evaluation is appreciated Colon resection successful Monitor labs including creatinine Ileus resolution Diagnosis/Problems Diagnosis/Problems (1) Syncope Status: Resolved Qualifiers: Syncope type: vasovagal syncope Qualified Codes: R55 - Syncope and collapse Resolution Date/Time: 10/09/18 @ 20:00 (2) Colon cancer Status: Chronic Qualifiers: Colon location: unspecified part of colon Qualified Codes: C18.9 - Malignant neoplasm of colon, unspecified (3) GI bleed Status: Resolved (4) Iron deficiency anemia Status: Chronic Qualifiers: Iron deficiency anemia type: chronic blood loss Qualified Codes: D50.0 - Iron deficiency anemia secondary to blood loss (chronic) (5) Hx pulmonary embolism Status: Chronic (6) History of DVT of lower extremity Status: Chronic (7) Non-insulin dependent type 2 diabetes mellitus Status: Chronic (8) Erectile dysfunction Status: Chronic Qualifiers: Erectile dysfunction type: unspecified Qualified Codes: N52.9 - Male erectile dysfunction, unspecified (9) Hypotension Status: Resolved (10) Bladder cancer Status: Resolved Qualifiers: Bladder location: unspecified site Qualified Codes: C67.9 - Malignant neoplasm of bladder, unspecified Resolution Date/Time: 10/08/18 @ 12:34 (11) Hypothyroidism Status: Chronic Qualifiers: Hypothyroidism type: acquired Qualified Codes: E03.9 - Hypothyroidism, unspecified (12) CAD (coronary artery disease) Status: Chronic Qualifiers: Coronary Disease-Associated Artery/Lesion type: [place] artery [place] vs. transplanted heart: [place] heart Associated angina: without angina Qualified Codes: I25.10 - Atherosclerotic heart disease of [place] coronary artery without angina pectoris (13) Hyponatremia Status: Resolved Resolution Date/Time: 10/10/18 @ 20:41 (14) Acute renal insufficiency Status: Resolved Resolution Date/Time: 10/10/18 @ 20:41 Clinical Quality Measures DVT/VTE Risk/Contraindication: Risk Factor Score Per Nursin RFS Level Per Nursing on Admit: 4+=Very High LEONARDO GARRIDO DO Oct 11, 2018 10:04
[2018-10-11 12:00] VITALS: BP 157/74
[2018-10-11 16:21] VITALS: BP 155/75
[2018-10-11 19:45] VITALS: BP 158/77
[2018-10-12] VITALS (7 sets, daily range): BP systolic 124–175; BP diastolic 72–88
--- NOTE | 2018-10-12 01:30 | NUR ---
This RN entered the room to answer call light. Patient states that he needs to use the bathroom. Patient is getting up frequently to urinate and would like to have his IV fluids unhooked. This RN states that it is not recommended but he would like to have the fluids disconnected at this time. Fluids are disconnected at patient request. Patient is having good PO intake per patient report and is voiding adequately. Will continue to monitor.
[2018-10-12 05:30] LABS: HEMOGLOBIN 9.4 G/DL (13.3-17.7); MEAN PLATELET VOLUME 8.6 FL (7.4-10.4); RED CELL DISTRIBUTION WIDTH 15.4 % (10.0-14.5); WHITE BLOOD COUNT 7.2 10^3/uL (4.3-11.0)
[2018-10-12 05:59] LABS: BUN/CREATININE RATIO 5; CALCIUM 8.6 MG/DL (8.5-10.1); CARBON DIOXIDE 20 MMOL/L (21-32); CHLORIDE 101 MMOL/L (98-107); CREATININE SERUM 0.85 MG/DL (0.60-1.30); GFR ESTIMATED > 60; GLUCOSE 171 MG/DL (70-105); MAGNESIUM 1.8 MG/DL (1.8-2.4); POTASSIUM 3.4 MMOL/L (3.6-5.0); SODIUM 134 MMOL/L (135-145)
[2018-10-12] MEDS: MAGNESIUM 1 GM/100 ML IVPB 100 ML IV SCH (07:53)
[2018-10-12] MEDS: POTASSIUM CL 10MEQ/50ML IVPB 50 ML IV SCH (07:54)
[2018-10-12] MEDS ORDERED: KCL 20 MEQ TAB (K-DUR) PO ONE (08:15)
[2018-10-12] MEDS: KCL 20 MEQ TAB (K-DUR) PO SCH (08:49)
[2018-10-12] MEDS: NS IV 1000 ML 1,000 ML IV SCH ×3 (08:50→20:56)
--- NOTE | 2018-10-12 09:20 | Progress Note-Hospitalist ---
Subjective HPI/CC On Admission Date Seen by Provider: Oct 12, 2018 Time Seen by Provider: 09:40 CC: Syncopal episode HPI: This is a 68-year-old white male known to me from prior admission to the hospital in July of this year for syncope with a past medical history of colon cancer set for colon resection today by Dr. Osorio who presented to [facility] after this event at home. He had completed a bowel prep and felt very weak and and dehydrated and felt like he was blacking out. He has a past medical history of stent placement in the coronary vessel in July 2018 in the midst of colon cancer diagnosis sent for treatment once the resection is complete. He had a small elevation in troponin T and was sent to the hospital for cardiology evaluation and surgery has been put on hold. Subjective/Events-last exam Patient doing very well Tolerating clear liquids No gas passed but I do note bowel sounds today Review of Systems General: Fatigue Gastrointestinal: Abdominal Pain Objective Exam Vital Signs Vital Signs Date Time Temp Pulse Resp B/P (MAP) Pulse Ox O2 Delivery O2 Flow Rate FiO2 10/12/18 08:00 98.4 81 16 158/80 (106) 7 Room Air 10/09/18 16:18 2.00 Capillary Refill : Greater Than 3 Seconds General Appearance: No Apparent Distress, WD/WN HEENT: PERRL/EOMI, TMs Normal, Normal ENT Inspection, Pharynx Normal Neck: Full Range of Motion, Normal Inspection, Non Tender Respiratory: Chest Non Tender, No Accessory Muscle Use, No Respiratory Distress Cardiovascular: Regular Rate, Rhythm, Normal Peripheral Pulses Gastrointestinal: Abnormal Bowel Sounds (subtle bowel sounds noted today ), Distended, Tenderness Back: Normal Inspection, No CVA Tenderness, No Vertebral Tenderness Extremity: Normal Capillary Refill, Normal Inspection, Normal Range of Motion, Non Tender, No Calf Tenderness, No Pedal Edema Neurologic/Psychiatric: Alert, Oriented x3, No Motor/Sensory Deficits, Normal Mood/Affect Reflexes: 3+ Bicep (R), 3+ Bicep (L), 3+ Tricep (R), 3+ Tricep (L), 3+ Knee (R) , 3+ Knee (L), 3+ Ankle (R), 3+ Ankle (L) Skin: Normal Color, Warm/Dry Lymphatic: No Adenopathy Results/Procedures Lab Laboratory Tests 10/12/18 05:20 Patient resulted labs reviewed. Assessment/Plan Assessment and Plan Assess & Plan/Chief Complaint Assessment: Colon cancer s/p resection by Dr Osorio POD # 3 Post op ileus Syncope w/h/o syncope 07/2018 assumed to be from dehydration and Cialis exposure ARF creat 1.3 Dehydration and electrolyte disturbance due to colon prep Elevated Troponin-T w/h/o stent in past Anemia s/p transfusion 07/2018 admit DM HLP DVT x 2 and PE in past s/p DC coumadin 07/2018 since risks for bleeding outweighed benefits Hypothyroidism h/o bladder cancer Hyponatremia Plan: IVF Cardiology evaluation is appreciated Colon resection successful Monitor labs including creatinine Ileus resolution Diagnosis/Problems Diagnosis/Problems (1) Syncope Status: Resolved Qualifiers: Syncope type: vasovagal syncope Qualified Codes: R55 - Syncope and collapse Resolution Date/Time: 10/09/18 @ 20:00 (2) Colon cancer Status: Chronic Qualifiers: Colon location: unspecified part of colon Qualified Codes: C18.9 - Malignant neoplasm of colon, unspecified (3) GI bleed Status: Resolved (4) Iron deficiency anemia Status: Chronic Qualifiers: Iron deficiency anemia type: chronic blood loss Qualified Codes: D50.0 - Iron deficiency anemia secondary to blood loss (chronic) (5) Hx pulmonary embolism Status: Chronic (6) History of DVT of lower extremity Status: Chronic (7) Non-insulin dependent type 2 diabetes mellitus Status: Chronic (8) Erectile dysfunction Status: Chronic Qualifiers: Erectile dysfunction type: unspecified Qualified Codes: N52.9 - Male erectile dysfunction, unspecified (9) Hypotension Status: Resolved (10) Bladder cancer Status: Resolved Qualifiers: Bladder location: unspecified site Qualified Codes: C67.9 - Malignant neoplasm of bladder, unspecified Resolution Date/Time: 10/08/18 @ 12:34 (11) Hypothyroidism Status: Chronic Qualifiers: Hypothyroidism type: acquired Qualified Codes: E03.9 - Hypothyroidism, unspecified (12) CAD (coronary artery disease) Status: Chronic Qualifiers: Coronary Disease-Associated Artery/Lesion type: [place] artery [place] vs. transplanted heart: [place] heart Associated angina: without angina Qualified Codes: I25.10 - Atherosclerotic heart disease of [place] coronary artery without angina pectoris (13) Hyponatremia Status: Resolved Resolution Date/Time: 10/10/18 @ 20:41 (14) Acute renal insufficiency Status: Resolved Resolution Date/Time: 10/10/18 @ 20:41 Clinical Quality Measures DVT/VTE Risk/Contraindication: Risk Factor Score Per Nursin RFS Level Per Nursing on Admit: 4+=Very High LEONARDO GARRIDO DO Oct 12, 2018 09:20
--- NOTE | 2018-10-12 11:25 | Cardiology Progress Note ---
Subjective Date Seen by Provider: Oct 12, 2018 Time Seen by Provider: 09:30 Subjective/Events-last exam patient is sitting in a chair, feeling better, no new complaint, no chest pain Review of Systems General: No Chills, No Night Sweats, No Fatigue, No Malaise, No Appetite, No Other HEENT: No Head Aches, No Visual Changes, No Eye Pain, No Ear Pain, No Dysphasia , No Sinus Congestion, No Post Nasal Drip, No Sore Throat, No Other Pulmonary: No Dyspnea, No Cough, No Pleuritic Chest Pain, No Other Cardiovascular: No: Chest Pain, Palpitations, Orthopnea, Paroxysmal Noc. Dyspnea, Edema, Lt Headedness, Other Objective-Cardiology Exam Last Set of Vital Signs Vital Signs 10/09/18 16:18 O2 Flow Rate 2.00 Capillary Refill : Greater Than 3 Seconds I&O Intake and Output 10/12/18 00:00 Intake Total 3170 ml Output Total 900 ml Balance 2270 ml Intake Oral 2170 ml IV Total 1000 ml Output Urine Total 900 ml # Voids 7 # Bowel Movements 1 General: Alert, Oriented X3, Cooperative HEENT: Atraumatic, PERRLA Neck: Supple, No JVD, No Thyromegaly Lungs: Clear to Auscultation, Normal Air Movement Heart: Regular Rate, Normal S1, Normal S2, No Murmurs Abdomen: Soft, No Tenderness, No Hepatosplenomegaly, No Masses, Other ( decreased bowel sounds) Extremities: No Clubbing, No Cyanosis, No Edema, Normal Pulses, No Tenderness/ Swelling Skin: No Rashes, No Breakdown, No Significant Lesion Neuro: Normal Gait, Normal Speech, Strength at 5/5 X4 Ext, Normal Tone, Sensation Intact Psych/Mental Status: Mental Status NL, Mood NL Results Lab Laboratory Tests 10/12/18 05:20 A/P-Cardiology Admission Diagnosis Syncope Anemia Hypovolemia Colon cancer Assessment/Plan Syncope, orthostatic hypotension, secondary to hypovolemia, better at this time. Continue to monitor Status post right hemicolectomy, recovering slowly, still not passing gas, managed by Dr. Osorio Anemia, received one unit packed RBCs yesterday, continue to monitor History of DVT and one episode of PE in the past and has been on Coumadin for over 10 years, currently off Coumadin and I will keep him off Coumadin. History of non-ST elevation myocardial infarction in June 2018, history of coronary artery disease, 2 stents placed in the late , cardiac catheterization was done in July 06, 2018 with Severe in-stent restenosis in the proximal and mid LAD, successful balloon angioplasty with multiple inflation at high pressure with excellent results using 2.515 mm balloon, Moderate to severe distal LAD stenosis that will be treated medically at this point. Severe proximal circumflex artery stenosis successful balloon angioplasty with excellent results. Unable to advance stent to that area due to the angle of the origin of the circumflex artery, restart aspirin when okay by Dr. Osorio Diabetes mellitus, followed and managed by primary care physician Hyperlipidemia maintained on Statin, continue to monitor Hypotension, currently hypertensive. Continue to monitor, did not initiate him on any blood pressure medication History of bladder cancer. Currently in remission Hypothyroidism, followed and managed by primary care physician Strong family history of heart disease with multiple family members with heart attack and bypass surgeries Clinical Quality Measures DVT/VTE Risk/Contraindication: Risk Factor Score Per Nursin RFS Level Per Nursing on Admit: 4+=Very High TAVON SUGGS MD Oct 12, 2018 11:25
[2018-10-12] MEDS: HYDROcodone/APAP 5 MG/325 MG (LORTAB) TAB PO PRN ×2 (12:56→20:56)
[2018-10-12] MEDS ORDERED: ENOXAPARIN 30 MG/0.3 ML (LOVENOX) SYR SC SCH (17:15)
--- NOTE | 2018-10-12 18:03 | Progress Note ---
Subjective Date Seen by a Provider: Oct 12, 2018 Time Seen by a Provider: 07:30 Subjective/Events-last exam Patient pain controlled. Using IS, No flatus or bm. Ambulating. Urinating okay. Tolerating clear liquids. Denies n/v fever sweats chills shortness of breath or chest pain. Objective Exam Vital Signs Date Time Temp Pulse Resp B/P (MAP) Pulse Ox O2 Delivery O2 Flow Rate FiO2 10/12/18 16:40 98.0 72 18 160/80 (106) 96 Room Air 10/12/18 12:00 97.4 103 18 124/78 (93) 100 Room Air 10/12/18 08:00 98.4 81 16 158/80 (106) 97 Room Air 10/12/18 08:00 Room Air 10/12/18 07:02 82 10/12/18 04:00 97.6 80 16 160/83 (108) 94 Room Air 10/12/18 01:00 83 10/12/18 00:00 97.9 86 18 155/76 (102) 94 Room Air 10/11/18 20:00 Room Air 10/11/18 19:45 98.8 88 18 158/77 (104) 96 Room Air 10/11/18 19:03 90 I & O 10/12/18 07:00 Intake Total 2170 ml Balance 2170 ml Capillary Refill : Greater Than 3 Seconds General Appearance: No Apparent Distress, WD/WN HEENT: PERRL/EOMI, TMs Normal, Normal ENT Inspection, Pharynx Normal Neck: Full Range of Motion, Normal Inspection, Non Tender Respiratory: Chest Non Tender, No Accessory Muscle Use, No Respiratory Distress Cardiovascular: Regular Rate, Rhythm, Normal Peripheral Pulses Gastrointestinal: soft, no organomegaly, tenderness (incisional, c/d/i) Extremity: Normal Capillary Refill, Normal Inspection, Normal Range of Motion, Non Tender, No Calf Tenderness, No Pedal Edema Neurologic/Psychiatric: Alert, Oriented x3, No Motor/Sensory Deficits, Normal Mood/Affect Skin: Normal Color, Warm/Dry Lymphatic: No Adenopathy Results Lab Laboratory Tests 10/12/18 05:20: White Blood Count 7.2, Red Blood Count 3.92L, Hemoglobin 9.4L, Hematocrit 30L, Mean Corpuscular Volume 77L, Mean Corpuscular Hemoglobin 24L, Mean Corpuscular Hemoglobin Concent 31L, Red Cell Distribution Width 15.4H, Platelet Count 327, Mean Platelet Volume 8.6, Sodium Level 134L, Potassium Level 3.4L, Chloride Level 101, Carbon Dioxide Level 20L, Anion Gap 13, Blood Urea Nitrogen 4L, Creatinine 0.85, Estimat Glomerular Filtration Rate > 60, BUN/Creatinine Ratio 5 , Glucose Level 171H, Calcium Level 8.6, Magnesium Level 1.8 Assessment/Plan Assessment/Plan Assessment/Plan right colon cancer coronary artery disease syncope anemia secondary to colon cancer elevated troponin T s/p right colon resection with mobilization hepatic flexure urinary retention electrolyte abnormalities Urinating without difficulty at this time- continue to monitor anemia monitor electrolyte replacement protocol clear liquids ambulate incentive spirometer repeat labs in am started aspirin dvt prophylaxis- scd and lovenox Clinical Quality Measures DVT/VTE Risk/Contraindication: Risk Factor Score Per Nursin RFS Level Per Nursing on Admit: 4+=Very High SRIKANTH AGUILAR DO Oct 12, 2018 18:03
[2018-10-12] MEDS: ENOXAPARIN 40 MG/0.4 ML (LOVENOX) SYR SC SCH (18:34)
[2018-10-13] MEDS: NS IV 1000 ML 1,000 ML IV SCH ×3 (00:08→15:30)
[2018-10-13 04:22] LABS: MEAN PLATELET VOLUME 8.8 FL (7.4-10.4); WHITE BLOOD COUNT 7.2 10^3/uL (4.3-11.0)
[2018-10-13 04:43] LABS: BUN/CREATININE RATIO 5; CALCIUM 9.2 MG/DL (8.5-10.1); CARBON DIOXIDE 20 MMOL/L (21-32); CHLORIDE 103 MMOL/L (98-107); CREATININE SERUM 1.03 MG/DL (0.60-1.30); GFR ESTIMATED > 60; GLUCOSE 167 MG/DL (70-105); MAGNESIUM 1.8 MG/DL (1.8-2.4); POTASSIUM 3.6 MMOL/L (3.6-5.0); SODIUM 134 MMOL/L (135-145)
[2018-10-13] MEDS: POTASSIUM CL 10MEQ/50ML IVPB 50 ML IV SCH (04:48)
[2018-10-13] MEDS: MAGNESIUM 1 GM/100 ML IVPB 100 ML IV SCH (04:49)
[2018-10-13] MEDS: KCL 20 MEQ TAB (K-DUR) PO SCH (05:29)
[2018-10-13 08:00] VITALS: BP 165/83
[2018-10-13] MEDS: ASPIRIN 81 MG CHEW (CHILDREN'S ASA) PO SCH (08:02)
--- NOTE | 2018-10-13 09:19 | Cardiology Progress Note ---
Subjective Date Seen by Provider: Oct 13, 2018 Time Seen by Provider: 09:17 Subjective/Events-last exam patient is laying down in bed, feeling better, pain is better. No bowel movement yet Review of Systems General: No Chills, No Night Sweats, No Fatigue, No Malaise, No Appetite, No Other HEENT: No Head Aches, No Visual Changes, No Eye Pain, No Ear Pain, No Dysphasia , No Sinus Congestion, No Post Nasal Drip, No Sore Throat, No Other Pulmonary: No Dyspnea, No Cough, No Pleuritic Chest Pain, No Other Cardiovascular: No: Chest Pain, Palpitations, Orthopnea, Paroxysmal Noc. Dyspnea, Edema, Lt Headedness, Other Objective-Cardiology Exam Last Set of Vital Signs Vital Signs 10/09/18 16:18 O2 Flow Rate 2.00 Capillary Refill : Greater Than 3 Seconds I&O Intake and Output 10/13/18 00:00 Intake Total 2360 ml Balance 2360 ml Intake Oral 1360 ml IV Total 1000 ml # Voids 10 General: Alert, Oriented X3, Cooperative HEENT: Atraumatic, PERRLA Neck: Supple, No JVD, No Thyromegaly Lungs: Clear to Auscultation, Normal Air Movement Heart: Regular Rate, Normal S1, Normal S2, No Murmurs Abdomen: Soft, No Tenderness, No Hepatosplenomegaly, No Masses, Other ( decreased bowel sounds) Extremities: No Clubbing, No Cyanosis, No Edema, Normal Pulses, No Tenderness/ Swelling Skin: No Rashes, No Breakdown, No Significant Lesion Neuro: Normal Gait, Normal Speech, Strength at 5/5 X4 Ext, Normal Tone, Sensation Intact Psych/Mental Status: Mental Status NL, Mood NL Results Lab Laboratory Tests 10/13/18 03:50 A/P-Cardiology Admission Diagnosis Syncope Anemia Hypovolemia Colon cancer Assessment/Plan Status post right hemicolectomy, recovering slowly, still not passing gas, managed by Dr. Osorio Status post syncope secondary to hypotension and hypovolemia. Better at this time. Continue to monitor Anemia, better, monitor H&H, continue to monitor History of DVT and one episode of PE in the past and has been on Coumadin for over 10 years, currently off Coumadin and I will keep him off Coumadin. History of non-ST elevation myocardial infarction in June 2018, history of coronary artery disease, 2 stents placed in the late , cardiac catheterization was done in July 06, 2018 with Severe in-stent restenosis in the proximal and mid LAD, successful balloon angioplasty with multiple inflation at high pressure with excellent results using 2.515 mm balloon, Moderate to severe distal LAD stenosis that will be treated medically at this point. Severe proximal circumflex artery stenosis successful balloon angioplasty with excellent results. Unable to advance stent to that area due to the angle of the origin of the circumflex artery, restart aspirin when okay by Dr. Osorio Diabetes mellitus, followed and managed by primary care physician Hyperlipidemia maintained on Statin, continue to monitor Hypotension, currently hypertensive. Continue to monitor, did not initiate him on any blood pressure medication History of bladder cancer. Currently in remission Hypothyroidism, followed and managed by primary care physician Strong family history of heart disease with multiple family members with heart attack and bypass surgeries Clinical Quality Measures DVT/VTE Risk/Contraindication: Risk Factor Score Per Nursin RFS Level Per Nursing on Admit: 4+=Very High TAVON SUGGS MD Oct 13, 2018 09:19
[2018-10-13] MEDS: LEVOTHYROXINE 112 MCG (LEVOTHROID) TAB PO SCH (09:42)
--- NOTE | 2018-10-13 11:48 | NUR ---
PATIENT REPORTED THAT HE HAD A SMALL BOWEL MOVEMENT. MESSAGE LEFT FOR DR AGUILAR.
--- NOTE | 2018-10-13 12:34 | Progress Note-Hospitalist ---
Subjective HPI/CC On Admission Date Seen by Provider: Oct 13, 2018 Time Seen by Provider: 11:00 CC: Syncopal episode HPI: This is a 68-year-old white male known to me from prior admission to the hospital in July of this year for syncope with a past medical history of colon cancer set for colon resection today by Dr. Osorio who presented to [facility] after this event at home. He had completed a bowel prep and felt very weak and and dehydrated and felt like he was blacking out. He has a past medical history of stent placement in the coronary vessel in July 2018 in the midst of colon cancer diagnosis sent for treatment once the resection is complete. He had a small elevation in troponin T and was sent to the hospital for cardiology evaluation and surgery has been put on hold. Subjective/Events-last exam Patient had small BM and + flatus Ambulating well Denies much pain only when he moves Checked meds and labs Hgb improved Review of Systems General: Fatigue Gastrointestinal: Abdominal Pain Objective Exam Vital Signs Vital Signs Date Time Temp Pulse Resp B/P (MAP) Pulse Ox O2 Delivery O2 Flow Rate FiO2 10/13/18 08:00 98.4 74 20 165/83 (110) 97 Room Air 10/09/18 16:18 2.00 Capillary Refill : Greater Than 3 Seconds General Appearance: No Apparent Distress, WD/WN HEENT: PERRL/EOMI, TMs Normal, Normal ENT Inspection, Pharynx Normal Neck: Full Range of Motion, Normal Inspection, Non Tender Respiratory: Chest Non Tender, No Accessory Muscle Use, No Respiratory Distress Cardiovascular: Regular Rate, Rhythm, Normal Peripheral Pulses Gastrointestinal: Normal Bowel Sounds, Soft, Tenderness Back: Normal Inspection, No CVA Tenderness, No Vertebral Tenderness Extremity: Normal Capillary Refill, Normal Inspection, Normal Range of Motion, Non Tender, No Calf Tenderness, No Pedal Edema Neurologic/Psychiatric: Alert, Oriented x3, No Motor/Sensory Deficits, Normal Mood/Affect Reflexes: 3+ Bicep (R), 3+ Bicep (L), 3+ Tricep (R), 3+ Tricep (L), 3+ Knee (R) , 3+ Knee (L), 3+ Ankle (R), 3+ Ankle (L) Skin: Normal Color, Warm/Dry Lymphatic: No Adenopathy Results/Procedures Lab Laboratory Tests 10/13/18 03:50 Patient resulted labs reviewed. Assessment/Plan Assessment and Plan Assess & Plan/Chief Complaint Assessment: Colon cancer s/p resection by Dr Osorio POD # 4 Post op ileus resolving Syncope w/h/o syncope 07/2018 assumed to be from dehydration and Cialis exposure ARF creat 1.3 now resolved Dehydration and electrolyte disturbance due to colon prep Elevated Troponin-T w/h/o stent in past Anemia s/p transfusion 07/2018 admit now improved DM HLP DVT x 2 and PE in past s/p DC coumadin 07/2018 since risks for bleeding outweighed benefits Hypothyroidism h/o bladder cancer Hyponatremia improved Plan: IVF Cardiology evaluation is appreciated Colon resection successful Monitor labs including creatinine Ileus resolution Advance diet per Dr Osorio Diagnosis/Problems Diagnosis/Problems (1) Syncope Status: Resolved Qualifiers: Syncope type: vasovagal syncope Qualified Codes: R55 - Syncope and collapse Resolution Date/Time: 10/09/18 @ 20:00 (2) Colon cancer Status: Chronic Qualifiers: Colon location: unspecified part of colon Qualified Codes: C18.9 - Malignant neoplasm of colon, unspecified (3) GI bleed Status: Resolved (4) Iron deficiency anemia Status: Chronic Qualifiers: Iron deficiency anemia type: chronic blood loss Qualified Codes: D50.0 - Iron deficiency anemia secondary to blood loss (chronic) (5) Hx pulmonary embolism Status: Chronic (6) History of DVT of lower extremity Status: Chronic (7) Non-insulin dependent type 2 diabetes mellitus Status: Chronic (8) Erectile dysfunction Status: Chronic Qualifiers: Erectile dysfunction type: unspecified Qualified Codes: N52.9 - Male erectile dysfunction, unspecified (9) Hypotension Status: Resolved (10) Bladder cancer Status: Resolved Qualifiers: Bladder location: unspecified site Qualified Codes: C67.9 - Malignant neoplasm of bladder, unspecified Resolution Date/Time: 10/08/18 @ 12:34 (11) Hypothyroidism Status: Chronic Qualifiers: Hypothyroidism type: acquired Qualified Codes: E03.9 - Hypothyroidism, unspecified (12) CAD (coronary artery disease) Status: Chronic Qualifiers: Coronary Disease-Associated Artery/Lesion type: [place] artery [place] vs. transplanted heart: [place] heart Associated angina: without angina Qualified Codes: I25.10 - Atherosclerotic heart disease of [place] coronary artery without angina pectoris (13) Hyponatremia Status: Resolved Resolution Date/Time: 10/10/18 @ 20:41 (14) Acute renal insufficiency Status: Resolved Resolution Date/Time: 10/10/18 @ 20:41 Clinical Quality Measures DVT/VTE Risk/Contraindication: Risk Factor Score Per Nursin RFS Level Per Nursing on Admit: 4+=Very High LEONARDO GARRIDO DO Oct 13, 2018 12:34
[2018-10-13 15:27] VITALS: BP 174/83
--- NOTE | 2018-10-13 15:43 | Progress Note ---
Subjective Date Seen by a Provider: Oct 13, 2018 Time Seen by a Provider: 08:30 Subjective/Events-last exam Patient not passing flatus or bm. Tolerating clears. Pain controlled. Denies n/v fever sweats chills shortness of breath or chest pain. Hgb increasing Objective Exam Vital Signs Date Time Temp Pulse Resp B/P (MAP) Pulse Ox O2 Delivery O2 Flow Rate FiO2 10/13/18 15:27 98.4 79 18 174/83 (113) 96 Room Air 10/13/18 08:00 98.4 74 20 165/83 (110) 97 Room Air 10/13/18 08:00 94 Room Air 10/12/18 23:48 97.6 79 18 148/72 (97) 94 Room Air 10/12/18 20:00 Room Air 10/12/18 19:15 98.3 78 18 175/88 (117) 100 Room Air 10/12/18 16:40 98.0 72 18 160/80 (106) 96 Room Air I & O 10/13/18 07:00 Intake Total 3660 ml Balance 3660 ml Capillary Refill : Greater Than 3 Seconds General Appearance: No Apparent Distress, WD/WN HEENT: PERRL/EOMI, TMs Normal, Normal ENT Inspection, Pharynx Normal Neck: Full Range of Motion, Normal Inspection, Non Tender Respiratory: Chest Non Tender, No Accessory Muscle Use, No Respiratory Distress Cardiovascular: Regular Rate, Rhythm, Normal Peripheral Pulses Gastrointestinal: soft, no organomegaly, tenderness (incisional, c/d/i) Extremity: Normal Capillary Refill, Normal Inspection, Normal Range of Motion, Non Tender, No Calf Tenderness, No Pedal Edema Neurologic/Psychiatric: Alert, Oriented x3, No Motor/Sensory Deficits, Normal Mood/Affect Skin: Normal Color, Warm/Dry Lymphatic: No Adenopathy Results Lab Laboratory Tests 10/13/18 03:50: White Blood Count 7.2, Red Blood Count 4.15L, Hemoglobin 10.0L, Hematocrit 32L, Mean Corpuscular Volume 77L, Mean Corpuscular Hemoglobin 24L, Mean Corpuscular Hemoglobin Concent 31L, Red Cell Distribution Width 16.0H, Platelet Count 392, Mean Platelet Volume 8.8, Sodium Level 134L, Potassium Level 3.6, Chloride Level 103, Carbon Dioxide Level 20L, Anion Gap 11, Blood Urea Nitrogen 5L, Creatinine 1.03, Estimat Glomerular Filtration Rate > 60, BUN/Creatinine Ratio 5 , Glucose Level 167H, Calcium Level 9.2, Magnesium Level 1.8 Assessment/Plan Assessment/Plan Assessment/Plan right colon cancer coronary artery disease syncope anemia secondary to colon cancer elevated troponin T s/p right colon resection with mobilization hepatic flexure urinary retention electrolyte abnormalities Urinating without difficulty at this time- continue to monitor anemia improving monitor electrolyte replacement protocol clear liquids-advance when passing flatus or BM ambulate incentive spirometer repeat labs in am on aspirin dvt prophylaxis- scd and lovenox Clinical Quality Measures DVT/VTE Risk/Contraindication: Risk Factor Score Per Nursin RFS Level Per Nursing on Admit: 4+=Very High SRIKANTH AGUILAR DO Oct 13, 2018 15:43
[2018-10-13] MEDS: ENOXAPARIN 40 MG/0.4 ML (LOVENOX) SYR SC SCH (17:31)
[2018-10-14] VITALS: BP 147/75
[2018-10-14] MEDS: NS IV 1000 ML 1,000 ML IV SCH (00:32)
[2018-10-14] MEDS: LEVOTHYROXINE 112 MCG (LEVOTHROID) TAB PO SCH (06:35)
[2018-10-14 07:03] LABS: HEMOGLOBIN 9.3 G/DL (13.3-17.7); MEAN PLATELET VOLUME 8.9 FL (7.4-10.4); RED CELL DISTRIBUTION WIDTH 15.6 % (10.0-14.5); WHITE BLOOD COUNT 6.8 10^3/uL (4.3-11.0)
[2018-10-14 07:30] LABS: BUN/CREATININE RATIO 6; CALCIUM 8.9 MG/DL (8.5-10.1); CARBON DIOXIDE 16 MMOL/L (21-32); CHLORIDE 105 MMOL/L (98-107); CREATININE SERUM 0.85 MG/DL (0.60-1.30); GFR ESTIMATED > 60; GLUCOSE 182 MG/DL (70-105); MAGNESIUM 1.7 MG/DL (1.8-2.4); POTASSIUM 3.9 MMOL/L (3.6-5.0); SODIUM 134 MMOL/L (135-145)
[2018-10-14] MEDS: KCL 20 MEQ TAB (K-DUR) PO SCH (07:47)
[2018-10-14] MEDS: POTASSIUM CL 10MEQ/50ML IVPB 50 ML IV SCH (07:47)
[2018-10-14 08:00] VITALS: BP 183/88
--- NOTE | 2018-10-14 08:00 | Cardiology Progress Note ---
Subjective Date Seen by Provider: Oct 14, 2018 Time Seen by Provider: 07:58 Subjective/Events-last exam Patient is in bed, feeling better, had 2 BM last night, passing gas. No new complaint Review of Systems General: No Chills, No Night Sweats, No Fatigue, No Malaise, No Appetite, No Other HEENT: No Head Aches, No Visual Changes, No Eye Pain, No Ear Pain, No Dysphasia , No Sinus Congestion, No Post Nasal Drip, No Sore Throat, No Other Pulmonary: No Dyspnea, No Cough, No Pleuritic Chest Pain, No Other Cardiovascular: No: Chest Pain, Palpitations, Orthopnea, Paroxysmal Noc. Dyspnea, Edema, Lt Headedness, Other Objective-Cardiology Exam Last Set of Vital Signs Vital Signs 10/09/18 10/14/18 16:18 00:00 Temp 97.8 Pulse 79 Resp 18 B/P (MAP) 147/75 (99) Pulse Ox 94 O2 Delivery Room Air O2 Flow Rate 2.00 Capillary Refill : Greater Than 3 Seconds I&O Intake and Output 10/14/18 00:00 Intake Total 4350 ml Balance 4350 ml Intake Oral 2350 ml IV Total 2000 ml # Voids 11 # Bowel Movements 2 General: Alert, Oriented X3, Cooperative HEENT: Atraumatic, PERRLA Neck: Supple, No JVD, No Thyromegaly Lungs: Clear to Auscultation, Normal Air Movement Heart: Regular Rate, Normal S1, Normal S2, No Murmurs Abdomen: Normal Bowel Sounds, Soft, No Tenderness, No Hepatosplenomegaly, No Masses Extremities: No Clubbing, No Cyanosis, No Edema, Normal Pulses, No Tenderness/ Swelling Skin: No Rashes, No Breakdown, No Significant Lesion Neuro: Normal Gait, Normal Speech, Strength at 5/5 X4 Ext, Normal Tone, Sensation Intact Psych/Mental Status: Mental Status NL, Mood NL Results Lab Laboratory Tests 10/14/18 06:50 A/P-Cardiology Admission Diagnosis Syncope Anemia Hypovolemia Colon cancer Assessment/Plan Status post right hemicolectomy, doing well. Had a bowel movement and passing gas, followed by Dr. Osorio Status post syncope secondary to hypotension and hypovolemia. Better at this time. Continue to monitor Anemia, better, monitor H&H, continue to monitor History of DVT and one episode of PE in the past and has been on Coumadin for over 10 years, currently off Coumadin and I will keep him off Coumadin. History of non-ST elevation myocardial infarction in June 2018, history of coronary artery disease, 2 stents placed in the late , cardiac catheterization was done in July 06, 2018 with Severe in-stent restenosis in the proximal and mid LAD, successful balloon angioplasty with multiple inflation at high pressure with excellent results using 2.515 mm balloon, Moderate to severe distal LAD stenosis that will be treated medically at this point. Severe proximal circumflex artery stenosis successful balloon angioplasty with excellent results. Unable to advance stent to that area due to the angle of the origin of the circumflex artery, restart aspirin when okay by Dr. Osorio Diabetes mellitus, followed and managed by primary care physician Hyperlipidemia maintained on Statin, continue to monitor Hypotension, currently hypertensive. Continue to monitor, did not initiate him on any blood pressure medication History of bladder cancer. Currently in remission Hypothyroidism, followed and managed by primary care physician Strong family history of heart disease with multiple family members with heart attack and bypass surgeries Okay for discharge from cardiology standpoint Clinical Quality Measures DVT/VTE Risk/Contraindication: Risk Factor Score Per Nursin RFS Level Per Nursing on Admit: 4+=Very High TAVON SUGGS MD Oct 14, 2018 08:00
[2018-10-14] MEDS: MAGNESIUM 1 GM/100 ML IVPB 100 ML IV SCH ×4 (08:14→09:19)
[2018-10-14] MEDS: ASPIRIN 81 MG CHEW (CHILDREN'S ASA) PO SCH (08:14)
[2018-10-14] MEDS ORDERED: ACHD5005 PO (08:27)
--- NOTE | 2018-10-14 08:29 | Discharge Inst-Simple/Standard ---
Discharge Inst-Standard Discharge Medications New, Converted or Re-Newed RX: RX on Chart Patient Instructions/Follow Up Plan of Care/Instructions/FU: 2 weeks [place] Activity as Tolerated: No Discharge Diet: Soft Diet Other Inst to Patient Follow up Appt: Make appointment for 2 week. Instructions: No lifting greater than 10 pounds. No strenuous activity. May shower in 24 hours, no tub bath or soaking. Use incentive spirometer at home as directed. No Smoking Skin/Wound Care: Keep incisions clean and dry. Symptoms to Report: Appetite Changes, Extremity Discoloration, Numbness/Tingling, Swelling Increased , Bleeding Excessive, Eyesight Changes, Pain Increased, Urine Color Change, Constipation(Persistent), Fever over 101 degree F, Pain/Pressure in chest, Urinating Difficulty, Cough Up/Vomit Blood, Heart Beat Irreg/Pounding, Pain/ Pressure in jaw, Vaginal Bleeding Increase, Cramps in feet or legs, Lightheadedness, Pain/Pressure in shoulder, Diarrhea(Persistent), Memory Changes Suddenly, Questions/Concerns, Weight gain consecutive days, Dizziness/ Fainting, Nausea/Vomiting, Shortness of Breath, Weight gain over 2 pounds If questions or concerns contact your physician Or seek help at emergency department. SRIKANTH AGUILAR DO Oct 14, 2018 08:29
--- NOTE | 2018-10-14 10:59 | Progress Note ---
Subjective Date Seen by a Provider: Oct 14, 2018 Time Seen by a Provider: 10:54 Subjective/Events-last exam Doing well. + bm. Tolerating diet. Pain controlled. Denies n/v fever sweats chills shortness of breath or chest pain. Using incentive spirometer. Urinating without difficulty. Denies fever sweats chills shortness of breath or chest pain. Objective Exam Vital Signs Date Time Temp Pulse Resp B/P (MAP) Pulse Ox O2 Delivery O2 Flow Rate FiO2 10/14/18 08:00 97 Room Air 10/14/18 08:00 98.0 79 18 183/88 (119) 97 Room Air 10/14/18 00:00 97.8 79 18 147/75 (99) 94 Room Air 10/13/18 20:00 Room Air 10/13/18 15:27 98.4 79 18 174/83 (113) 96 Room Air I & O 10/14/18 07:00 Intake Total 4350 ml Balance 4350 ml Capillary Refill : Greater Than 3 Seconds General Appearance: No Apparent Distress, WD/WN HEENT: PERRL/EOMI, TMs Normal, Normal ENT Inspection, Pharynx Normal Neck: Full Range of Motion, Normal Inspection, Non Tender Respiratory: Chest Non Tender, No Accessory Muscle Use, No Respiratory Distress Cardiovascular: Regular Rate, Rhythm, Normal Peripheral Pulses Gastrointestinal: soft, no organomegaly, tenderness (incisional, c/d/i no signs of infection) Extremity: Normal Capillary Refill, Normal Inspection, Normal Range of Motion, Non Tender, No Calf Tenderness, No Pedal Edema Neurologic/Psychiatric: Alert, Oriented x3, No Motor/Sensory Deficits, Normal Mood/Affect Skin: Normal Color, Warm/Dry Lymphatic: No Adenopathy Results Lab Laboratory Tests 10/14/18 06:50: White Blood Count 6.8, Red Blood Count 3.97L, Hemoglobin 9.3L, Hematocrit 31L, Mean Corpuscular Volume 77L, Mean Corpuscular Hemoglobin 23L, Mean Corpuscular Hemoglobin Concent 31L, Red Cell Distribution Width 15.6H, Platelet Count 386, Mean Platelet Volume 8.9, Sodium Level 134L, Potassium Level 3.9, Chloride Level 105, Carbon Dioxide Level 16L, Anion Gap 13, Blood Urea Nitrogen 5L, Creatinine 0.85, Estimat Glomerular Filtration Rate > 60, BUN/Creatinine Ratio 6 , Glucose Level 182H, Calcium Level 8.9, Magnesium Level 1.7L Assessment/Plan Assessment/Plan Assessment/Plan right colon cancer coronary artery disease syncope anemia secondary to colon cancer elevated troponin T s/p right colon resection with mobilization hepatic flexure urinary retention electrolyte abnormalities Urinating without difficulty at this time anemia improving monitor electrolyte replacement protocol tolerating diet ambulate incentive spirometer repeat labs in am on aspirin dvt prophylaxis- scd and lovenox doing well. okay to nh home today. outpatient follow up. Clinical Quality Measures DVT/VTE Risk/Contraindication: Risk Factor Score Per Nursin RFS Level Per Nursing on Admit: 4+=Very High SRIKANTH AGUILAR DO Oct 14, 2018 10:59
[2018-10-14 12:05] VITALS: BP 183/88
--- NOTE | 2018-10-14 13:11 | Discharge Summary-Hospitalist ---
Diagnosis/Chief Complaint Date of Admission Oct 08, 2018 at 08:17 Date of Discharge Oct 14, 2018 at 12:05 Discharge Date: Oct 14, 2018 Admission Diagnosis Assessment: Syncope w/h/o syncope 07/2018 assumed to be from dehydration and Cialis exposure ARF creat 1.3 Dehydration and electrolyte disturbance due to colon prep Elevated Troponin-T w/h/o stent in past Colon cancer in need of resection was to be done today by Dr Osorio Anemia s/p transfusion 07/2018 admit DM HLP DVT x 2 and PE in past s/p DC coumadin 07/2018 since risks for bleeding outweighed benefits Hypothyroidism h/o bladder cancer Plan: IVF Cardiology evaluation Keep colon clean NPO for colon resection reschedule hopefully tomorrow Monitor labs including creatinine Discharge Diagnosis (1) Syncope Status: Resolved (2) Colon cancer Status: Chronic (3) GI bleed Status: Resolved (4) Iron deficiency anemia Status: Chronic (5) Hx pulmonary embolism Status: Chronic (6) History of DVT of lower extremity Status: Chronic (7) Non-insulin dependent type 2 diabetes mellitus Status: Chronic (8) Erectile dysfunction Status: Chronic (9) Hypotension Status: Resolved (10) Bladder cancer Status: Resolved (11) Hypothyroidism Status: Chronic (12) CAD (coronary artery disease) Status: Chronic (13) Hyponatremia Status: Resolved (14) Acute renal insufficiency Status: Resolved Discharge Summary Discharge Physical Exam Allergies: Coded Allergies: No Known Drug Allergies (Unverified , 10/04/18) Vitals & I&Os Vital Signs Date Time Temp Pulse Resp B/P (MAP) Pulse Ox O2 Delivery O2 Flow Rate FiO2 10/14/18 12:05 79 18 183/88 97 Room Air 10/14/18 08:00 98.0 10/09/18 16:18 2.00 General Appearance: No Apparent Distress, WD/WN Neurologic/Psychiatric: Alert, Oriented x3, No Motor/Sensory Deficits, Normal Mood/Affect Hospital Course Was the Problem List Reviewed?: Yes Hospital course: Patient was admitted that day he was to have a partial colon resection for colon cancer by Dr. Osorio but instead was admitted through [facility] due to syncopal episode. Considering the mild hypotension and electrolyte imbalance we presumed it was from the colon prep so he was placed on gentle IV fluids and cardiology evaluated him for possibility of elevated troponin but that was later ruled out. He underwent an uncomplicated partial colon resection by Dr. Osorio and had postop ileus but was supported with IV fluids and ambulation and pain control and patient was deemed stable for discharge after return of normal bowel function on 10/14/18. He will have close follow-up with Dr. Osorio postoperatively and then began treatment for colon cancer. Labs (last 24 hrs) Laboratory Tests 10/14/18 06:50: White Blood Count 6.8, Red Blood Count 3.97L, Hemoglobin 9.3L, Hematocrit 31L, Mean Corpuscular Volume 77L, Mean Corpuscular Hemoglobin 23L, Mean Corpuscular Hemoglobin Concent 31L, Red Cell Distribution Width 15.6H, Platelet Count 386, Mean Platelet Volume 8.9, Sodium Level 134L, Potassium Level 3.9, Chloride Level 105, Carbon Dioxide Level 16L, Anion Gap 13, Blood Urea Nitrogen 5L, Creatinine 0.85, Estimat Glomerular Filtration Rate > 60, BUN/Creatinine Ratio 6 , Glucose Level 182H, Calcium Level 8.9, Magnesium Level 1.7L Patient resulted labs reviewed. Pending Labs Laboratory Tests 10/14/18 06:50: White Blood Count 6.8, Red Blood Count 3.97, Hemoglobin 9.3, Hematocrit 31, Mean Corpuscular Volume 77, Mean Corpuscular Hemoglobin 23, Mean Corpuscular Hemoglobin Concent 31, Red Cell Distribution Width 15.6, Platelet Count 386, Mean Platelet Volume 8.9, Sodium Level 134, Potassium Level 3.9, Chloride Level 105, Carbon Dioxide Level 16, Anion Gap 13, Blood Urea Nitrogen 5, Creatinine 0.85, Estimat Glomerular Filtration Rate > 60, BUN/Creatinine Ratio 6, Glucose Level 182, Calcium Level 8.9, Magnesium Level 1.7 Discussion & Recommendations Discharge Planning: <30 minutes discharge planning Discharge Home Medications: Active Scripts Active Hydrocodone/Acetaminophen 5/325mg Tablet (Acetaminophen/Hydrocodone Bitart) 1 Tab Tab 1 Tab PO Q4H PRN Reported Protonix (Pantoprazole Sodium) 40 Mg Tablet.dr 40 Mg PO DAILY Flonase Allergy Relief (Fluticasone Propionate) 9.9 Ml [place].susp 2 [place] NS DAILY PRN Vitamin B-12 (Cyanocobalamin (Vitamin B-12)) 1,000 Mcg Tablet 1,000 Mcg PO DAILY Metronidazole 45 Gm Cream..g. TP DAILY PRN Iron (Ferrous Sulfate) 325 Mg Tablet 325 Mg PO TID Hydrocortisone (Hydrocortisone Acetate) 28 Gm Oint...g. TP DAILY PRN Finacea (Azelaic Acid) 50 Gm Gel..gram. TP DAILY PRN Elidel (Pimecrolimus) 30 Gm Cream.gm. TP DAILY PRN Lo-Dose Aspirin EC (Aspirin) 81 Mg Tablet.dr 81 Mg PO DAILY Atorvastatin Calcium 40 Mg Tablet 40 Mg PO HS Metformin HCl 1,000 Mg Tablet 1,000 Mg PO BID Chlor-Trimeton (Chlorpheniramine Maleate) 4 Mg Tablet 4 Mg PO BID PRN Chlor-Trimeton (Chlorpheniramine Maleate) 4 Mg Tablet 4 Mg PO DAILY Januvia (Sitagliptin Phosphate) 100 Mg Tablet 100 Mg PO DAILY Glipizide 10 Mg Tablet 10 Mg PO BID Pioglitazone HCl 30 Mg Tablet 30 Mg PO HS Levothyroxine Sodium 112 Mcg Tablet 112 Mcg PO DAILY Instructions to patient/family Please see electronic discharge instructions given to patient. Clinical Quality Measures DVT/VTE Risk/Contraindication: Risk Factor Score Per Nursin RFS Level Per Nursing on Admit: 4+=Very High Problem Qualifiers (1) Syncope: Syncope type: vasovagal syncope Qualified Codes: R55 - Syncope and collapse (2) Colon cancer: Colon location: unspecified part of colon Qualified Codes: C18.9 - Malignant neoplasm of colon, unspecified (3) Iron deficiency anemia: Iron deficiency anemia type: chronic blood loss Qualified Codes: D50.0 - Iron deficiency anemia secondary to blood loss (chronic) (4) Erectile dysfunction: Erectile dysfunction type: unspecified Qualified Codes: N52.9 - Male erectile dysfunction, unspecified (5) Bladder cancer: Bladder location: unspecified site Qualified Codes: C67.9 - Malignant neoplasm of bladder, unspecified (6) Hypothyroidism: Hypothyroidism type: acquired Qualified Codes: E03.9 - Hypothyroidism, unspecified (7) CAD (coronary artery disease): Coronary Disease-Associated Artery/Lesion type: [place] artery [place] vs. transplanted heart: [place] heart Associated angina: without angina Qualified Codes: I25.10 - Atherosclerotic heart disease of [place] coronary artery without angina pectoris LEONARDO GARRIDO DO Oct 14, 2018 13:11
== END 2018-10-14 12:05 | disposition home or self-care (01) | DRG 330 ==
LOC: EDUNIT# 06:46 → ER FS 06:49 → ICU 08:17 → 4TH 09:22
PROVIDERS: ADMIT Internal Medicine; ATTEND Internal Medicine
PROC: 0DTB0ZZ Resection of Ileum, Open Approach (ICD-10-PCS; 2018-10-09)
PROC: 0DTJ0ZZ Resection of Appendix, Open Approach (ICD-10-PCS; 2018-10-09)
PROC: 0DTF0ZZ Resection of Right Large Intestine, Open Approach (ICD-10-PCS; principal; 2018-10-09 12:57)
DX: C18.2 Malignant neoplasm of ascending colon (principal); E86.1 Hypovolemia; E86.0 Dehydration; E87.1 Hypo-osmolality and hyponatremia; I95.1 Orthostatic hypotension; R79.89 Other specified abnormal findings of blood chemistry; K56.7 Ileus, unspecified; R33.9 Retention of urine, unspecified; D50.0 Iron deficiency anemia secondary to blood loss (chronic); I25.10 Atherosclerotic heart disease of native coronary artery without angina pectoris; I10 Essential (primary) hypertension; I25.2 Old myocardial infarction; E11.9 Type 2 diabetes mellitus without complications; E03.9 Hypothyroidism, unspecified; E78.00 Pure hypercholesterolemia, unspecified; N28.9 Disorder of kidney and ureter, unspecified; N52.9 Male erectile dysfunction, unspecified; T46.7X5A Adverse effect of peripheral vasodilators, initial encounter; Z95.5 Presence of coronary angioplasty implant and graft; Z85.51 Personal history of malignant neoplasm of bladder; Z86.718 Personal history of other venous thrombosis and embolism; Z86.711 Personal history of pulmonary embolism; Z87.891 Personal history of nicotine dependence; Z82.49 Family history of ischemic heart disease and other diseases of the circulatory system
CPT/HCPCS: 36415; 71045; 80048; 80053; 82962; 83735; 84484; 85025; 85027; 85610; 86850; 86900; 86901; 86920; 93005; 94664; 96360

== ENCOUNTER 2018-11-08 15:14 | Outpatient (RCR) | payer MEDICARE ==
[2018-08-15 15:54] LABS: BASOPHILS % (AUTO) 1 % (0-10); EOSINOPHILS # (AUTO) 0.2 10^3/uL (0.0-0.3); EOSINOPHILS % (AUTO) 3 % (0-10); HEMATOCRIT 28 % (40-54); HEMOGLOBIN 8.8 G/DL (13.3-17.7); LYMPHOCYTES # (AUTO) 2.2 X 10^3 (1.0-4.0); LYMPHOCYTES % (AUTO) 31 % (12-44); MEAN CORPUSCULAR HEMOGLOBIN 27 PG (25-34); MEAN CORPUSCULAR HGB CONC 32 G/DL (32-36); MEAN CORPUSCULAR VOLUME 83 FL (80-99); MONOCYTES # (AUTO) 0.4 X 10^3 (0.0-1.0); MONOCYTES % (AUTO) 6 % (0-12); NEUTROPHILS # (AUTO) 4.2 X 10^3 (1.8-7.8); NEUTROPHILS % (AUTO) 60 % (42-75); PLATELET COUNT 468 10^3/uL (130-400); RED CELL DISTRIBUTION WIDTH 14.5 % (10.0-14.5); WHITE BLOOD COUNT 7.1 10^3/uL (4.3-11.0)
[2018-08-15 16:18] LABS: BILIRUBIN,TOTAL 0.3 MG/DL (0.1-1.0); CALCIUM 9.6 MG/DL (8.5-10.1); CREATININE SERUM 1.36 MG/DL (0.60-1.30); POTASSIUM 4.2 MMOL/L (3.6-5.0); TOTAL PROTEIN 8.1 GM/DL (6.4-8.2)
[2018-10-19 14:03] LABS: BASOPHILS % (AUTO) 1 % (0-10); EOSINOPHILS # (AUTO) 1.2 10^3/uL (0.0-0.3); EOSINOPHILS % (AUTO) 14 % (0-10); HEMATOCRIT 32 % (40-54); HEMOGLOBIN 9.9 G/DL (13.3-17.7); LYMPHOCYTES # (AUTO) 2.2 X 10^3 (1.0-4.0); LYMPHOCYTES % (AUTO) 26 % (12-44); MEAN CORPUSCULAR HEMOGLOBIN 24 PG (25-34); MEAN CORPUSCULAR HGB CONC 31 G/DL (32-36); MEAN CORPUSCULAR VOLUME 77 FL (80-99); MEAN PLATELET VOLUME 8.8 FL (7.4-10.4); MONOCYTES # (AUTO) 0.4 X 10^3 (0.0-1.0); MONOCYTES % (AUTO) 5 % (0-12); NEUTROPHILS # (AUTO) 4.7 X 10^3 (1.8-7.8); NEUTROPHILS % (AUTO) 55 % (42-75); PLATELET COUNT 455 10^3/uL (130-400); RED CELL DISTRIBUTION WIDTH 16.2 % (10.0-14.5); WHITE BLOOD COUNT 8.5 10^3/uL (4.3-11.0)
[2018-10-19 14:24] LABS: ALANINE AMINOTRANSFERASE 18 U/L (0-55); ALBUMIN 3.6 GM/DL (3.2-4.5); ALKALINE PHOSPHATASE 76 U/L (40-136); BILIRUBIN,TOTAL 0.2 MG/DL (0.1-1.0); BUN/CREATININE RATIO 9; CALCIUM 9.4 MG/DL (8.5-10.1); CARBON DIOXIDE 24 MMOL/L (21-32); CHLORIDE 100 MMOL/L (98-107); CREATININE SERUM 1.16 MG/DL (0.60-1.30); GFR ESTIMATED > 60; GLUCOSE 217 MG/DL (70-105); POTASSIUM 4.4 MMOL/L (3.6-5.0); SODIUM 132 MMOL/L (135-145); TOTAL PROTEIN 7.5 GM/DL (6.4-8.2)
[~2018-11-08] VITALS: Ht 190.5 cm; Wt 93.0 kg
[~2018-11-08 15:14] MED LIST changes: +ACHD5005 PO
[2018-11-09] MEDS ORDERED: D5W 500 ML IV (CANCER CTR) 500 ML IV SCH (09:15)
[2018-11-09] MEDS ORDERED: D5W IV SCH (09:15)
[2018-11-09] MEDS ORDERED: PALONOSETRON HCL 0.25 MG, DEXAMETHASONE INJECTION 10 MG in NS (IVPB) CANCER CENTER 50 ML IV SCH (09:15)
[2018-11-09] MEDS ORDERED: OXALIPLATIN IV SCH (09:15)
== END 2018-11-13 | disposition home or self-care (01) ==
LOC: ONC 15:14
PROVIDERS: ATTEND Internal Medicine Hematology & Oncology
DX: D64.9 Anemia, unspecified (principal); Z85.51 Personal history of malignant neoplasm of bladder; I25.10 Atherosclerotic heart disease of native coronary artery without angina pectoris; E11.9 Type 2 diabetes mellitus without complications; I10 Essential (primary) hypertension; Z79.84 Long term (current) use of oral hypoglycemic drugs; Z79.82 Long term (current) use of aspirin; Z79.899 Other long term (current) drug therapy
CPT/HCPCS: 36415; 80053; 82607; 82728; 82746; 83540; 85025; 99213

== ENCOUNTER 2018-11-15 09:30 | Outpatient (CLI) | payer MEDICARE ==
[~2018-11-15] VITALS: Ht 190.5 cm; Wt 91.2 kg
== END 2018-11-15 09:43 | disposition home or self-care (01) ==
LOC: PREOP 09:30
PROVIDERS: ATTEND Surgery
DX: Z01.818 Encounter for other preprocedural examination (principal)

== ENCOUNTER 2018-11-16 05:57 | Day surgery (SDC) | payer MEDICARE ==
[2018-11-16] VITALS (7 sets, daily range): BP systolic 105–125; BP diastolic 69–79
[~2018-11-16] VITALS: Ht 190.5 cm; Wt 90.0 kg
[2018-11-16] MEDS ORDERED: LACTATED RINGERS 1,000 ML IV PRN (06:08)
[2018-11-16] MEDS ORDERED: ceFAZolin 2 GM IV Premixed 50 ML IV ONE (06:15)
[2018-11-16] MEDS ORDERED: PROPOFOL INJECTION 50 ML IV ONE (06:41)
[2018-11-16] MEDS ORDERED: MIDAZOLAM 2 MG/2 ML (VERSED) VIAL ONE (06:41)
[2018-11-16] MEDS ORDERED: 0.9% SODIUM CHLORIDE PF INJ 20 ML VIAL ONE (07:18)
[2018-11-16] MEDS ORDERED: HEParin (CENTRAL IV FLUSH) 500 UNIT/5 ML SYR ONE (07:18)
[2018-11-16] MEDS ORDERED: LIDOCAINE 1% INJ 20 ML 20 ML VIAL ONE (07:18)
[2018-11-16] MEDS ORDERED: BUP/EPI 0.5% 1:200,000 (SENSORCAINE) 30 ML VIAL ONE (07:18)
--- NOTE | 2018-11-16 07:57 | Progress Note-Pre Operative ---
Pre-Operative Progress Note H&P Reviewed The H&P was reviewed, patient examined and no changes noted. Date Seen by Provider: November 16, 2018 Time Seen by Provider: 07:56 Date H&P Reviewed: November 16, 2018 Time H&P Reviewed: 07:56 Pre-Operative Diagnosis: colon cancer SRIKANTH AGUILAR DO November 16, 2018 07:57
--- NOTE | 2018-11-16 09:00 | Progress Note-Post Operative ---
Post-Operative Progess Note Surgeon (s)/Ceramic Research Engineer (s) Surgeon SRIKANTH AGUILAR DO Ceramic Research Engineer: na Pre-Operative Diagnosis colon cancer Post-Operative Diagnosis same Procedure & Operative Findings Date of Procedure 11/16/18 Procedure Performed/Findings right IJ u/s guided port placement Anesthesia Type mac c local Estimated Blood Loss Estimated blood loss (mL): min Specimens/Packing Specimens Removed na SRIKANTH AGUILAR DO November 16, 2018 09:00
--- NOTE | 2018-11-16 09:05 | Discharge Inst-Simple/Standard ---
Discharge Inst-Standard Patient Instructions/Follow Up Plan of Care/Instructions/FU: 2 weeks [place] Activity as Tolerated: No Discharge Diet: Regular Diet Other Inst to Patient Follow up Appt: Make appointment for 1 week. Instructions: No lifting greater than 10 pounds. No strenuous activity. May shower in 24 hours, no tub bath or soaking. Use incentive spirometer at home as directed. No Smoking Skin/Wound Care: You have special glue over incisions it will fall off on its own. Take off other bandages in [address] ice pack on 15 min off 30 min to reduce swelling and discomfort. repeat for the first 48 hours while awake. Symptoms to Report: Appetite Changes, Extremity Discoloration, Numbness/Tingling, Swelling Increased , Bleeding Excessive, Eyesight Changes, Pain Increased, Urine Color Change, Constipation(Persistent), Fever over 101 degree F, Pain/Pressure in chest, Urinating Difficulty, Cough Up/Vomit Blood, Heart Beat Irreg/Pounding, Pain/ Pressure in jaw, Vaginal Bleeding Increase, Cramps in feet or legs, Lightheadedness, Pain/Pressure in shoulder, Diarrhea(Persistent), Memory Changes Suddenly, Questions/Concerns, Weight gain consecutive days, Dizziness/ Fainting, Nausea/Vomiting, Shortness of Breath, Weight gain over 2 pounds If questions or concerns contact your physician Or seek help at emergency department. SRIKANTH AGUILAR DO November 16, 2018 09:04
[2018-11-16] MEDS ORDERED: ONDANSETRON 4 MG/2 ML (SDV) Z0FRAN ONE (09:10)
[2018-11-16] MEDS ORDERED: ONDANSETRON 4 MG/2 ML (SDV) Z0FRAN IVP PRN (09:15)
[2018-11-16] MEDS ORDERED: MEPERIDINE (DEMEROL) INJ 50 MG/ML IVP ONE (09:15)
[2018-11-16] MEDS ORDERED: morphine INJ 10 MG/ML 1ML (SYR OR VIAL) IVP ONE (09:15)
[2018-11-16] MEDS ORDERED: fentaNYL INJECTION 100 MCG/2 ML AMP IVP ONE (09:15)
--- NOTE | 2018-11-16 09:30 | Diagnostic Imaging Report ---
INDICATION: Postop [place]. Compared 10/08/2018 FINDINGS: Right IJ at the SVC. No pneumothorax. Upper limits heart size without vascular congestion or edema. IMPRESSION: Catheter placed in good position. No pneumothorax. Dictated by: Dictated on workstation # [id number]
--- NOTE | 2018-11-16 11:08 | Anesthesia-General Post-Op ---
MAC Patient Condition Mental Status/LOC: Same as Preop Cardiovascular: Satisfactory Nausea/Vomiting: Absent Respiratory: Satisfactory Pain: Controlled Complications: Absent Post Op Complications Complications None Follow Up Care/Instructions Patient Instructions None needed. Anesthesiology Discharge Order Discharge Order Patient was seen after the procedure this morning and he was doing well, no complaints, stable vital signs, no apparent adverse anesthesia problems. RIVER GIMENEZ DO November 16, 2018 11:08
--- NOTE | 2018-11-16 15:57 | Diagnostic Imaging Report ---
INDICATION: Prior port insertion. EXAMINATION: Fluoroscopy at 7:47 p.m. FINDINGS: Fluoroscopic assistance was provided for Dr. Osorio. 20.5 seconds of fluoroscopy time was utilized. A single spot film of the thorax was obtained. There is a Port-A-Cath in place on the right with the tip of the catheter overlying the distal superior vena cava. IMPRESSION: Fluoroscopic assistance was provided for Dr. Osorio. Dictated by: Dictated on workstation # [id number]
--- NOTE | 2018-11-16 16:26 | OPERATIVE REPORT ---
DATE OF SERVICE: 11/16/2018 PREOPERATIVE DIAGNOSIS: Colon cancer. POSTOPERATIVE DIAGNOSIS: Colon cancer. PROCEDURE: Right internal jugular vein ultrasound-guided port placement. SURGEON: Srikanth Osorio DO. ANESTHESIA: MAC with local. ESTIMATED BLOOD LOSS: Minimal. COMPLICATIONS: None. INDICATIONS: The patient is a 68-year-old male with the recent right colon cancer. He has undergone resection and is planning for chemotherapy. He understands the risks and benefits of port placement and wishes to proceed. Consent was signed and on the chart. DESCRIPTION OF PROCEDURE: The patient was taken to the operating suite and was prepped and draped in sterile fashion. Surgical pause was performed. Right internal jugular vein was located under ultrasound guidance. Local anesthetic was infiltrated and using a micro access needle, the right internal jugular vein was accessed and dark nonpulsatile blood was withdrawn. Micro access wire was inserted and fluoroscopy assured proper placement. An 11-blade scalpel was used to make a stab incision at the insertion point. A dilator was then advanced over the guidewire and the wire and the dilator were removed. The normal guidewire was inserted through the sheath and fluoroscopy assured proper placement. The sheath was removed and the wire was secured. Local anesthetic was used to infiltrate the neck down to the right chest for pocket creation. A 15 blade scalpel was used to make a skin incision and a pocket was created. A dilator sheath was then advanced over the guidewire under fluoroscopy. The dilator and wire were removed. The [place] catheter was inserted through the sheath and the sheath was then removed. The catheter was then tunneled from the insertion point down to the pocket created on the right chest. This was then cut to length using fluoroscopy. The port was attached and placed within the pocket. The port was then accessed, it mathieu blood and flushed saline and heparin without difficulty. The fluoroscopy assured good placement. The subcutaneous tissues were then reapproximated using a 3-0 Vicryl. The skin was then washed and dried and Skin Affix was placed over the skin. The patient tolerated the procedure well without any complications and taken to recovery room in stable condition. Chest x-ray is pending. Job ID: [id number] DocumentID: [id number] Dictated Date: 11/16/2018 09:08:16 Legal Intern Date: 11/16/2018 16:26:07 Dictated By: SRIKANTH OSORIO DO
== END 2018-11-16 10:45 | disposition home or self-care (01) ==
LOC: SDC 05:57
PROVIDERS: ATTEND Surgery
DX: C18.2 Malignant neoplasm of ascending colon (principal); E11.9 Type 2 diabetes mellitus without complications; I25.10 Atherosclerotic heart disease of native coronary artery without angina pectoris; I10 Essential (primary) hypertension; I44.30 Unspecified atrioventricular block; I65.23 Occlusion and stenosis of bilateral carotid arteries; K21.9 Gastro-esophageal reflux disease without esophagitis; Z85.51 Personal history of malignant neoplasm of bladder; Z86.711 Personal history of pulmonary embolism; Z79.02 Long term (current) use of antithrombotics/antiplatelets; Z79.82 Long term (current) use of aspirin; Z79.84 Long term (current) use of oral hypoglycemic drugs; Z79.899 Other long term (current) drug therapy; Z87.891 Personal history of nicotine dependence; Z95.5 Presence of coronary angioplasty implant and graft
CPT/HCPCS: 71045; 82962; 87081

== ENCOUNTER 2018-12-04 12:48 | Observation (INO) | payer MEDICARE ==
[~2018-12-04] VITALS: Ht 190.5 cm; Wt 90.3 kg
--- NOTE | 2018-12-04 13:23 | ED Syncope ---
General Chief Complaint: Dizziness/Syncope Stated Complaint: SYNCOPE Source of Information: Patient, Family Exam Limitations: No Limitations History of Present Illness Date Seen by Provider: December 04, 2018 Time Seen by Provider: 13:20 Initial Comments 68-year-old male presents with a history of persistent nausea and vomiting for the last several days as he is finishing a course of chemotherapy. The patient had a cancer; excised by Dr. Osorio recently with several positive lymph nodes precipitating his initiation on the monitor. The patient is finishing his first 2 week round of his chemotherapy and his symptoms began with nausea and vomiting in the last few days. The patient was at home sitting in his chair when he had nausea and vomiting and then had a syncopal episode. EMS brought the patient for further evaluation. The patient denies associated fever or chill, hematemesis or black or tarry stools, persistent abdominal pain. The patient has poorly localized lower abdominal pain that precedes his emesis but then resolves after he has vomited. Allergies and Home Medications Allergies Coded Allergies: No Known Drug Allergies (Unverified , 11/15/18) Home Medications Aspirin 81 Mg Tablet.dr, 81 MG PO DAILY, (Reported) Atorvastatin Calcium 40 Mg Tablet, 40 MG PO HS, (Reported) Azelaic Acid 50 Gm Gel..gram., TP DAILY PRN for PSORIASIS, (Reported) Cyanocobalamin (Vitamin B-12) 1,000 Mcg Tablet, 1,000 MCG PO DAILY, (Reported) Ferrous Sulfate 325 Mg Tablet, 325 MG PO TID, (Reported) Fluticasone Propionate 9.9 Ml [place].susp, 2 [place] NS DAILY PRN for ALLERGIES, (Reported) Glipizide 10 Mg Tablet, 10 MG PO BID, (Reported) Hydrocortisone Acetate 28 Gm Oint...g., TP DAILY PRN for PSORIASIS, (Reported) Levothyroxine Sodium 112 Mcg Tablet, 112 MCG PO DAILY, (Reported) Metformin HCl 1,000 Mg Tablet, 1,000 MG PO BID, (Reported) Metronidazole 45 Gm Cream..g., TP DAILY PRN for PSORIASIS, (Reported) Pantoprazole Sodium 40 Mg Tablet.dr, 40 MG PO DAILY, (Reported) Pimecrolimus 30 Gm Cream.gm., TP DAILY PRN for PSORIASIS, (Reported) Pioglitazone HCl 30 Mg Tablet, 30 MG PO HS, (Reported) Sitagliptin Phosphate 100 Mg Tablet, 100 MG PO DAILY, (Reported) Patient Home Medication List Home Medication List Reviewed: Yes Review of Systems Constitutional: No chills, No fever EENTM: No hearing loss, No vision loss Respiratory: No cough Cardiovascular: No chest pain Gastrointestinal: abdominal pain; No diarrhea; nausea, vomiting Genitourinary: No dysuria, No frequency Musculoskeletal: No back pain Skin: No change in color, No rash Psychiatric/Neurological: No Symptoms Reported Past [id number]-Znhktl Hx Past Med/Social Hx: Reviewed Nursing Past Med/Soc Hx Patient Social History Alcohol Beverage of Choice: [place] Type Used: Cigarettes Former Smoker, Quit: Jul 04, 1980 2nd Hand Smoke Exposure: Yes Recent Hopitalizations: Yes (JUL 2018-LOW B/P, ANEMIA) Immunizations Up To Date Tetanus Booster (TDap): Unknown Date of Pneumonia Vaccine: Jul 26, 2016 Date of Influenza Vaccine: May 04, 2018 Seasonal Allergies Seasonal Allergies: No Past Medical History Surgeries: Yes (BLADDER SURGERY-CANCER, COLON RESECTION ) Cardiac Respiratory: Yes Pulmonary Embolism Currently Using CPAP: No Currently Using BIPAP: No Cardiac: Yes (stents in 1996, ANGIOPLASTY 06/2018) Coronary Artery Disease, High Cholesterol, Hypertension Neurological: No Sexually Transmitted Disease: No HIV/AIDS: No Genitourinary: Yes (bladder cancer in past) Bladder Infection Gastrointestinal: Yes (COLON CA) Musculoskeletal: No Endocrine: Yes Diabetes, Non-Insulin dep HEENT: Yes (GLASSES) Cataract Loss of Vision: Bilateral Hearing Impairment: Denies Cancer: Yes Bladder, Colon Did You Recieve Any Treatments: Yes What Type of Treatment Did You: Chemotherapy, Surgical Intervention Psychosocial: No Integumentary: Yes Psoriasis Blood Disorders: No (ANEMIA) Adverse Reaction/Blood Tranf: No (HAS HAD BLOOD WITH NO REACTION) Family Medical History CAD Over 55 Years Old Physical Exam Vital Signs Vital Signs - First Documented 12/04/18 12:50 Temp 96.7 Pulse 97 Resp 18 B/P (MAP) 112/68 (83) Pulse Ox 98 O2 Delivery Room Air Capillary Refill : Height, Weight, BMI Height: 6'3.00" Weight: 198lbs. 6.0oz. 89.259077jw; 24.8 BMI Method:Stated General Appearance: No Apparent Distress, Cachetic HEENT: Normal ENT Inspection Neck: Normal Inspection Cardiovascular: Regular Rate, Rhythm, No Murmur Respiratory: Lungs Clear, Normal Breath Sounds Gastrointestinal: Non Tender, Soft, Abnormal Bowel Sounds; No Distended (hypoactive) Back: Normal Inspection Extremities: Normal Inspection, Normal Range of Motion Neurologic/Psychiatric: No Motor/Sensory Deficits, Normal Mood/Affect Motor/Sensory: No Motor Deficit, No Sensory Deficit Skin: Normal Color, Warm/Dry Progress/Results/Core Measures Results/Orders Lab Results Laboratory Tests Test 12/04/18 13:05 12/04/18 15:00 Range/Units White Blood Count 3.7 L 4.3-11.0 10^3/uL Red Blood Count 4.55 4.35-5.85 10^6/uL Hemoglobin 11.0 L 13.3-17.7 G/DL Hematocrit 35 L 40-54 % Mean Corpuscular Volume 78 L 80-99 FL Mean Corpuscular Hemoglobin 24 L 25-34 PG Mean Corpuscular Hemoglobin Concent 31 L 32-36 G/DL Red Cell Distribution Width 18.8 H 10.0-14.5 % Platelet Count 190 130-400 10^3/uL Mean Platelet Volume 9.5 7.4-10.4 FL Neutrophils (%) (Auto) 61 42-75 % Lymphocytes (%) (Auto) 31 12-44 % Monocytes (%) (Auto) 7 0-12 % Eosinophils (%) (Auto) 1 0-10 % Basophils (%) (Auto) 0 0-10 % Neutrophils # (Auto) 2.3 1.8-7.8 X 10^3 Lymphocytes # (Auto) 1.2 1.0-4.0 X 10^3 Monocytes # (Auto) 0.3 0.0-1.0 X 10^3 Eosinophils # (Auto) 0.0 0.0-0.3 10^3/uL Basophils # (Auto) 0.0 0.0-0.1 10^3/uL Neutrophils % (Manual) 45 % Lymphocytes % (Manual) 36 % Monocytes % (Manual) 8 % Eosinophils % (Manual) 1 % Basophils % (Manual) 0 % Band Neutrophils 10 % Sodium Level 131 L 135-145 MMOL/L Potassium Level 4.1 3.6-5.0 MMOL/L Chloride Level 93 L 98-107 MMOL/L Carbon Dioxide Level 22 21-32 MMOL/L Anion Gap 16 H 5-14 MMOL/L Blood Urea Nitrogen 19 H 7-18 MG/DL Creatinine 1.10 0.60-1.30 MG/DL Estimat Glomerular Filtration Rate > 60 BUN/Creatinine Ratio 17 Glucose Level 263 H 70-105 MG/DL Calcium Level 8.4 L 8.5-10.1 MG/DL Corrected Calcium 8.6 8.5-10.1 MG/DL Total Bilirubin 0.5 0.1-1.0 MG/DL Aspartate Amino Transf (AST/SGOT) 14 5-34 U/L Alanine Aminotransferase (ALT/SGPT) 11 0-55 U/L Alkaline Phosphatase 73 40-136 U/L Troponin T 15 8 <=15 NG/L Total Protein 6.7 6.4-8.2 GM/DL Albumin 3.8 3.2-4.5 GM/DL Lipase 31 8-78 U/L My Orders Orders - MILI ZAMORANO MD Cbc With Automated Diff (12/04/18 13:18) Comprehensive Metabolic Panel (12/04/18 13:18) Lipase (12/04/18 13:18) Ua Culture If Indicated (12/04/18 13:18) Ns Iv 1000 Ml (Sodium Chloride 0.9%) (12/04/18 13:30) Ekg Tracing (12/04/18 13:24) Troponin T (12/04/18 13:24) Ct Abdomen/Pelvis W (12/04/18 13:24) Ct Head Wo (12/04/18 13:25) Manual Differential (12/04/18 13:05) Iohexol Injection (Omnipaque 350 Mg/Ml 1 (12/04/18 14:00) Received Contrast (Hold Metformin- Contr (12/04/18 14:00) Sodium Chloride Flush (Catheter Flush Sy (12/04/18 14:00) Ns (Ivpb) (Sodium Chloride 0.9% Ivpb Bag (12/04/18 14:00) Troponin T (12/04/18 14:41) Fentanyl Injection (Sublimaze Injection (12/04/18 16:00) Medications Given in ED Current Medications Medications Dose Ordered Sig/Rabia Route Start Time Stop Time Status Last Admin Dose Admin Iohexol 100 ml ONCE ONCE IV 12/04/18 14:00 12/04/18 14:01 DC 12/04/18 15:26 100 ML Sodium Chloride 10 ml NEEDED PRN IV 12/04/18 14:00 12/04/18 15:26 10 ML Sodium Chloride 100 ml ONCE ONCE IV 12/04/18 14:00 12/04/18 14:01 DC 12/04/18 15:26 80 ML Vital Signs/I&O 12/04/18 12:50 Temp 96.7 Pulse 97 Resp 18 B/P (MAP) 112/68 (83) Pulse Ox 98 O2 Delivery Room Air Progress Progress Note : Time: 15:59 Progress Note Patient's laboratory evaluation was consistent with mild dehydration. The p atient's initial troponin was elevated at 15 a repeat troponin was 8. Patient's CT of the head without and abdomen and pelvis with failed to demonstrate evidence of acute pathology. Treatment course patient received 2 L normal saline in the emergency department with significant improvement. I treated his headache and back pain from lying in her bed for a number of hours with 50 g of fentanyl IV. I called the [facility] [place] to inform them of his presentation emergency department here at [place]. They will Dr. Ordoñez call me to discuss the patient's presentation. I believe the patient's presentation is most consistent with simply an effect from his chemotherapy. Also the patient with a milligram ODT ondansetron for future episodes. Next I invited the patient and his emergency department if any further problems or questions. Departure Impression Primary Impression: Vomiting Qualified Codes: R11.2 - Nausea with vomiting, unspecified Additional Impressions: Syncope Qualified Codes: R55 - Syncope and collapse Chemotherapy adverse reaction Qualified Codes: T45.1X5A - Adverse effect of antineoplastic and immunosuppressive drugs, initial encounter Disposition: 01 HOME, SELF-CARE Condition: Improved Departure-Patient Inst. Decision time for Depature: 16:04 Referrals: EMIL RITTER MD (PCP/Family) Primary Care Physician NAHOMY ORDOÑEZ MD Patient Instructions: Nausea and Vomiting, Adult Add. Discharge Instructions: A milligram Zofran ODT as needed for further nausea. Close follow-up with Dr. Ordoñez. Return if any problems or questions. All discharge instructions reviewed with patient and/or family. Voiced understanding. Scripts Ondansetron (Ondansetron Odt) 8 Mg Tab.rapdis 8 MG PO Q4H for Nausea, #20 TAB Prov: MILI ZAMORANO MD 12/04/18 MILI ZAMORANO MD December 04, 2018 13:23
[2018-12-04] MEDS: NS IV 1000 ML 1,000 ML IV SCH ×2 (13:25→20:42)
[2018-12-04 13:28] LABS: HEMATOCRIT 35 % (40-54); MEAN CORPUSCULAR HEMOGLOBIN 24 PG (25-34); MEAN CORPUSCULAR VOLUME 78 FL (80-99); WHITE BLOOD COUNT 3.7 10^3/uL (4.3-11.0)
[2018-12-04 13:29] LABS: BASOPHILS % (AUTO) 0 % (0-10); EOSINOPHILS % (AUTO) 1 % (0-10); LYMPHOCYTES # (AUTO) 1.2 X 10^3 (1.0-4.0); LYMPHOCYTES % (AUTO) 31 % (12-44); MEAN CORPUSCULAR HGB CONC 31 G/DL (32-36); MEAN PLATELET VOLUME 9.5 FL (7.4-10.4); MONOCYTES # (AUTO) 0.3 X 10^3 (0.0-1.0); MONOCYTES % (AUTO) 7 % (0-12); NEUTROPHILS # (AUTO) 2.3 X 10^3 (1.8-7.8); NEUTROPHILS % (AUTO) 61 % (42-75); PLATELET COUNT 190 10^3/uL (130-400); RED CELL DISTRIBUTION WIDTH 18.8 % (10.0-14.5)
[2018-12-04 13:41] LABS: BILIRUBIN,TOTAL 0.5 MG/DL (0.1-1.0); BUN/CREATININE RATIO 17; CALCIUM 8.4 MG/DL (8.5-10.1); CARBON DIOXIDE 22 MMOL/L (21-32); CHLORIDE 93 MMOL/L (98-107); GFR ESTIMATED > 60; GLUCOSE 263 MG/DL (70-105); POTASSIUM 4.1 MMOL/L (3.6-5.0); SODIUM 131 MMOL/L (135-145)
[2018-12-04 13:42] LABS: ALANINE AMINOTRANSFERASE 11 U/L (0-55); ALBUMIN 3.8 GM/DL (3.2-4.5); ALKALINE PHOSPHATASE 73 U/L (40-136); LIPASE 31 U/L (8-78); TOTAL PROTEIN 6.7 GM/DL (6.4-8.2)
[2018-12-04 13:50] LABS: BAND NEUTROPHILS 10 %; BASOPHILS % (MANUAL) 0 %; EOSINOPHILS % (MANUAL) 1 %; LYMPHOCYTES % (MANUAL) 36 %; MONOCYTES % (MANUAL) 8 %; NEUTROPHILS % (MANUAL) 45 %
[2018-12-04] MEDS ORDERED: HOLD METFORMIN - RECEIVED CONTRAST 20 ML VIAL IV SCH (14:00)
[2018-12-04] MEDS ORDERED: NS 100 ML (IVPB) BAG IV ONE (14:00)
[2018-12-04] MEDS ORDERED: IOHEXOL 350 MG/ML 100 ML (OMNIPAQUE 350) VIAL IV ONE (14:00)
[2018-12-04] MEDS ORDERED: CATHETER FLUSH 10 ML SYR IV PRN ×2 (14:00→20:30)
--- NOTE | 2018-12-04 15:37 | Diagnostic Imaging Report ---
PROCEDURE: CT head without contrast. TECHNIQUE: Multiple contiguous axial images were obtained through the brain without the use of intravenous contrast. Auto Exposure Controls were utilized during the CT exam to meet ALARA standards for radiation dose reduction. INDICATION: Syncope and patient with bladder carcinoma. FINDINGS: Ventricles and sulci are within normal limits for size given patient's age. There is low-density within the deep white matter of both cerebral hemispheres without evidence of hemorrhage. There is no abnormal mass effect or shift of midline structures. Atherosclerotic calcification is seen within distal internal carotid arteries, bilaterally. Calvarium is intact and visualized paranasal sinuses reveal shallow air-fluid levels in the maxillary antra, bilaterally. IMPRESSION: Findings indicating probable chronic microvascular ischemia in the brain without evidence of acute intracranial abnormality. There is evidence of acute bilateral maxillary sinusitis. Dictated by: Dictated on workstation # [id number]
--- NOTE | 2018-12-04 15:50 | Diagnostic Imaging Report ---
PROCEDURE: CT abdomen and pelvis with contrast. TECHNIQUE: Multiple contiguous axial images were obtained through the abdomen and pelvis after administration of intravenous contrast. Auto Exposure Controls were utilized during the CT exam to meet ALARA standards for radiation dose reduction. INDICATION: Nausea, vomiting, diarrhea since yesterday. Patient has history of bladder carcinoma. COMPARISON: No prior studies are available for comparison. FINDINGS: The lung bases are clear. No discrete liver mass is identified. Gallbladder is unremarkable. No biliary duct dilatation is seen. The pancreas and spleen are unremarkable. No adrenal mass is detected. Kidneys contain cortical low densities, largest lower pole left kidney measuring 2.7 cm. This is most suggestive of cysts. Aorta is heavily calcified but nonaneurysmal. No central retroperitoneal or mesenteric lymphadenopathy is seen. Small and large bowel loops are normal caliber. There is no ascites. Postsurgical changes of right hemicolectomy are noted. No definite iliac or inguinal lymphadenopathy is seen. The bladder is unremarkable. Prostate is normal in size. No definite osteolytic or osteoblastic lesions are seen. IMPRESSION: No acute feature in the abdomen or pelvis is identified. No abdominal or pelvic lymphadenopathy or evidence of metastatic disease is detected. Dictated by: Dictated on workstation # [id number]
[2018-12-04] MEDS ORDERED: fentaNYL INJECTION 100 MCG/2 ML AMP IVP ONE (16:00)
--- NOTE | 2018-12-04 16:00 | NUR ---
PT HAD RESTART OF CLIFTON NEEDLE WITH 22 GA 0.75 INCH ON 1ST ATTEMPT AFTER HAVING BEEN PREPARED FOR DISCHARGE EARLIER AND POWER PORT CLIFTON FLUSHED AND DC'D. PT'S SPOUSE HAS STATED SHE DID NOT FEEL COMFORTABLE TAKING PT HOME AFTER THIS SYNCOPE EVENT AND HYPOTENSION AND WOULD LIKE PT KEPT IN HOSPITAL.
[2018-12-04] MEDS ORDERED: ONDA8TAB13 PO (16:06)
--- NOTE | 2018-12-04 16:50 | NUR ---
ARRANGEMENTS MADE AND PT ACCEPTED TO BE ADMITTED OBS BED.
--- NOTE | 2018-12-04 17:33 | NUR ---
TELEPHONE REPORT FROM ZEYNEP GOMES.
[2018-12-04 17:37] LABS: BILIRUBIN,URINE NEGATIVE (NEGATIVE); CLARITY,URINE CLEAR; COLOR,URINE YELLOW; GLUCOSE, URINE (UA) 3+ (NEGATIVE); KETONES,URINE TRACE (NEGATIVE); NITRITE,URINE NEGATIVE (NEGATIVE); PH,URINE 5.5 (5-9); PROTEIN,URINE NEGATIVE (NEGATIVE)
[2018-12-04 17:38] LABS: BACTERIA,URINE FEW /HPF; LEUKOCYTE ESTERASE ,URINE NEGATIVE (NEGATIVE); UROBILINOGEN,URINE 0.2 MG/DL (NORMAL)
--- NOTE | 2018-12-04 18:49 | NUR ---
PT DEPARTED AT THIS TIME TO [facility].
--- NOTE | 2018-12-04 19:50 | NUR ---
HETAL HERNANDEZ admitted to room 408-1, with an admitting diagnosis of chemotherapy and hypotension, on 12/04/18 from ed via stretcher, accompanied by staff and .HETAL HERNANDEZ introduced to surroundings, call light, bed controls, phone, TV, temperature control, lights, meal times, smoking policy, visitor policy, side rail policy, bathrooms and showers. Patient Rights given to patient in the handbook. HETAL HERNANDEZ verbalizes understanding that [facility] is not responsible for the loss or damage to any personal effects or valuables that are kept in the patients possession during their hospitalization. plans of care discussed with pt and verbalizes understanding. HETAL HERNANDEZ verbalizes understanding of Interdisciplinary Patient Education. Patient and/or family were informed about the Rapid Response Team and its purpose.
[2018-12-04] MEDS: ONDANSETRON 4 MG (ZOFRAN) ORAL DISSOLVE TAB PO PRN (20:41)
--- NOTE | 2018-12-04 21:15 | NUR ---
PT REPORTEDD NECK PAIN RATED 8/10. CALLED DR DIA AND RECEIVED ORDER FOR FENTANYL 25 MCG IV Q4H PRN.
[2018-12-04] MEDS ORDERED: fentaNYL INJECTION 100 MCG/2 ML AMP ONE (21:24)
[2018-12-04] MEDS: fentaNYL INJECTION 100 MCG/2 ML AMP IVP PRN (21:31)
[2018-12-04 21:51] VITALS: BP 136/75
[2018-12-04 23:25] VITALS: BP 126/66
[2018-12-05] MEDS: ONDANSETRON 4 MG (ZOFRAN) ORAL DISSOLVE TAB PO PRN ×4 (00:08→17:45)
[2018-12-05 04:40] VITALS: BP 114/64
[2018-12-05] MEDS: NS IV 1000 ML 1,000 ML IV SCH ×2 (05:53→16:49)
[2018-12-05 06:09] LABS: BASOPHILS % (AUTO) 0 % (0-10); EOSINOPHILS # (AUTO) 0.1 10^3/uL (0.0-0.3); EOSINOPHILS % (AUTO) 2 % (0-10); HEMATOCRIT 31 % (40-54); HEMOGLOBIN 9.8 G/DL (13.3-17.7); LYMPHOCYTES # (AUTO) 1.9 X 10^3 (1.0-4.0); LYMPHOCYTES % (AUTO) 45 % (12-44); MEAN CORPUSCULAR HEMOGLOBIN 24 PG (25-34); MEAN CORPUSCULAR HGB CONC 32 G/DL (32-36); MEAN CORPUSCULAR VOLUME 76 FL (80-99); MEAN PLATELET VOLUME 9.6 FL (7.4-10.4); MONOCYTES # (AUTO) 0.5 X 10^3 (0.0-1.0); MONOCYTES % (AUTO) 12 % (0-12); NEUTROPHILS # (AUTO) 1.7 X 10^3 (1.8-7.8); NEUTROPHILS % (AUTO) 41 % (42-75); PLATELET COUNT 160 10^3/uL (130-400); RED CELL DISTRIBUTION WIDTH 18.8 % (10.0-14.5); WHITE BLOOD COUNT 4.1 10^3/uL (4.3-11.0)
[2018-12-05 06:41] LABS: ALANINE AMINOTRANSFERASE 12 U/L (0-55); ALBUMIN 3.1 GM/DL (3.2-4.5); ALKALINE PHOSPHATASE 58 U/L (40-136); BILIRUBIN,TOTAL 0.4 MG/DL (0.1-1.0); BUN/CREATININE RATIO 13; CARBON DIOXIDE 19 MMOL/L (21-32); CHLORIDE 104 MMOL/L (98-107); CREATININE SERUM 1.12 MG/DL (0.60-1.30); GFR ESTIMATED > 60; GLUCOSE 189 MG/DL (70-105); POTASSIUM 3.9 MMOL/L (3.6-5.0); SODIUM 134 MMOL/L (135-145); TOTAL PROTEIN 5.7 GM/DL (6.4-8.2)
[2018-12-05 08:35] VITALS: BP 144/68
[2018-12-05] MEDS ORDERED: CAPE500T14 PO (09:35)
[2018-12-05] MEDS ORDERED: ONDA8TAB13 PO (09:35)
[2018-12-05] MEDS ORDERED: CHLO4TAB36 PO ×2 (09:35)
--- NOTE | 2018-12-05 09:38 | NUR ---
SPOKE WITH THE PATIENT ABOUT HIS MEDICATIONS. HE HAD A DETAILED LIST WITH HIM AND VERIFIED HOW HE TAKES EACH MEDICATION.
[2018-12-05 12:30] VITALS: BP 138/67
[2018-12-05] MEDS ORDERED: inSUlin ASPART (NovoLOG) 1 UNIT/0.01 ML (CHARGE PER UNIT) SC SCH (14:30)
[2018-12-05 15:38] VITALS: BP 115/63
--- NOTE | 2018-12-05 15:44 | History & Physical-Hospitalist ---
History of Present Illness HPI/Chief Complaint The patient is a 68-year-old white male who presented at the [facility] emergency room yesterday. He was seen by Dr. Watts the complaint was that of persistent nausea and vomiting. He had a colon resection performed here by Dr. Osorio on October 09. He had cervical lymph nodes which were positive so was a candidate for postrecovery chemotherapy. He is just completing his first course of chemotherapy which lasts 3 weeks on and one week off. He thought that he had been doing rather well until the past week. He had had the development of nausea and vomiting over the last several days. He sta gurmeet he was sitting in his recliner and had nausea and then vomited and then felt as if he worsening taking and passed out. He awakened and his insisted that he go seek additional treatment. He reports that he is feeling much better today. His hemoglobin and electrolytes were satisfactory. He was transferred here for IV fluid and observation. He reports that the use of Zofran has been a great help and will would like to be discharged. Date Seen 12/05/18 Time Seen by a Provider: 15:43 Attending Physician Avery Dia MD PCP Hans Farmer MD Referring Physician Date of Admission December 04, 2018 at 17:03 Home Medications & Allergies Home Medications Reviewed patient Home Medication Reconciliation performed by pharmacy medication reconciliations photo optics technician and/or nursing. Patients Allergies have been reviewed. Allergies Allergies Coded Allergies No Known Drug Allergies (Unverified11/15/18) Past Ycroejc-Sgjvui-Iombyh Hx Past Med/Social Hx: Reviewed Nursing Past Med/Soc Hx Patient Social History Alcohol Use: Occasionally Uses Number of Drinks Today: BB Alcohol Beverage of Choice: [place] Recreational Drug Use: No Smoking Status: Former Smoker Former Smoker, Quit: Jul 04, 1980 Type Used: Cigarettes 2nd Hand Smoke Exposure: Yes Recent Foreign Travel: No Contact w/other who traveled: No Recent Hopitalizations: Yes (SEP 2018-[place] COLON/SURGERY) Recent Infectious Disease Expo: No Immunizations Up To Date Tetanus Booster (TDap): Unknown Date of Pneumonia Vaccine: Jul 26, 2016 Date of Influenza Vaccine: May 04, 2018 Seasonal Allergies Seasonal Allergies: No Past Medical History Surgeries: Bowel Surgery, Cardiac, Coronary Stent Currently Using CPAP: No Currently Using BIPAP: No Cardiac: Coronary Artery Disease, High Cholesterol, Hypertension Sexually Transmitted Disease: No HIV/AIDS: No Genitourinary: Bladder Infection Endocrine: Diabetes, Non-Insulin dep HEENT: Cataract Loss of Vision: Bilateral Hearing Impairment: Denies Cancer: Bladder, Colon Did You Recieve Any Treatments: Yes What Type of Treatment Did You: Chemotherapy, Surgical Intervention Skin/Integumentary: Psoriasis 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) Adverse Reaction to Blood [place]: No (HAS HAD BLOOD WITH NO REACTION) Family History CAD Over 55 Years Old Review of Systems Constitutional: see HPI EENTM: no symptoms reported Respiratory: no symptoms reported Cardiovascular: other (he reports that his blood pressure systolic has been 90- 100 during the course of chemotherapy which is unusual for him and may be related to his near syncope complaints.) Gastrointestinal: abdominal pain (after vomiting) Genitourinary: no symptoms reported Musculoskeletal: no symptoms reported Skin: no symptoms reported Psychiatric/Neurological: No Symptoms Reported Physical Exam Physical Exam Vital Signs Vital Signs - First Documented 12/04/18 12:50 Temp 96.7 Pulse 97 Resp 18 B/P (MAP) 112/68 (83) Pulse Ox 98 O2 Delivery Room Air Capillary Refill : Less Than 3 SecondsLess Than 3 Seconds Height, Weight, BMI Height: 6'3.00" Weight: 199lbs. 1.0oz. 90.264871un; 24.9 BMI Method:Stated General Appearance: No Apparent Distress, WD/WN Eyes: Bilateral Eye Normal Inspection HEENT: Normal ENT Inspection Neck: Full Range of Motion, Normal Inspection, Non Tender, Supple Respiratory: Chest Non Tender, Lungs Clear, Normal Breath Sounds, No Accessory Muscle Use, No Respiratory Distress Cardiovascular: Regular Rate, Rhythm, No Edema, No Gallop, No JVD, No Murmur, Normal Peripheral Pulses Gastrointestinal: Normal Bowel Sounds, No Organomegaly, No Pulsatile Mass, Non Tender, Soft Back: Normal Inspection, No CVA Tenderness, No Vertebral Tenderness Neurologic/Psychiatric: Alert, Oriented x3, No Motor/Sensory Deficits, Normal Mood/Affect Skin: Normal Color Lymphatic: No Adenopathy Results Results/Procedures Labs Laboratory Tests 12/04/18 13:05 12/05/18 06:00 Patient resulted labs reviewed. Assessment/Plan Admission Diagnosis 1.syncope. 2.relative systolic hypertension. 3.carcinoma of the colon resected with positive lymph nodes. 4.possible chemotherapy side effect secondary to treatment of number 3. Admission Status: Observation Assessment and Plan Discharge home. Clinical Quality Measures DVT/VTE Risk/Contraindication: Risk Factor Score Per Nursin RFS Level Per Nursing on Admit: 4+=Very High AVERY DIA MD December 05, 2018 15:44
[2018-12-05] MEDS: fentaNYL INJECTION 100 MCG/2 ML AMP IVP PRN (15:55)
--- NOTE | 2018-12-05 15:58 | Discharge Inst-Simple/Standard ---
Discharge Inst-Standard Patient Instructions/Follow Up Plan of Care/Instructions/FU: Resume medicati During the time of chemotherapy you might consider taking Gatorade or similar sports drink to attempt to bump up your blood pressure. 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 Activity as Tolerated: Yes Discharge Diet: Eat Small Frequent Meals MARIAMA DIA MD December 05, 2018 15:58
--- NOTE | 2018-12-05 19:38 | Consultation ---
History of Present Illness History of Present Illness Patient Consulted On(jim/time) 12/05/18 19:30 Date Seen by Provider: December 05, 2018 Time Seen by Provider: 19:30 History of Present Illness Mr. Jose is a 68 yo male with h/o colon cancer stage III s/p hemicolectomy. He started adjuvant chemotherapy with IV oxaliplatin and PO capecitabine on 11/21/18. Patient developed runny stools up to 5 times a day about a week ago but did not start taking antidiarrheals until just a couple of days ago. He has been drinking lots of fluids but still became hypotensive and dizzy. Due to nausea, he has not been able to eat well for days. He has not been able to keep down oral antiemetics. He came to chemotherapy clinic on 12/03/18 and received 1L NS but ultimately he continued to have hypotension and suffered from an episode of syncope yesterday. He was admitted for hydration. He feels much better this afternoon with antinausea medications, and his blood pressure is improved. Allergies and Home Medications Allergies Coded Allergies: No Known Drug Allergies (Unverified , 11/15/18) Home Medications Aspirin 81 Mg Tablet.dr, 81 MG PO DAILY, (Reported) Atorvastatin Calcium 40 Mg Tablet, 40 MG PO HS, (Reported) Azelaic Acid 50 Gm Gel..gram., TP DAILY, (Reported) Capecitabine 500 Mg Tablet, PO UD, (Reported) TAKE 4 TABLETS BY MOUTH EVERY 12 HOURS FOR 14 DAYS THEN OFF FOR 7 DAYS Chlorpheniramine Maleate 4 Mg Tablet, 4 MG PO DAILY, (Reported) Chlorpheniramine Maleate 4 Mg Tablet, 4 MG PO BID PRN for ALLERGIES, (Reported) Cyanocobalamin (Vitamin B-12) 1,000 Mcg Tablet, 1,000 MCG PO HS, (Reported) Ferrous Sulfate 325 Mg Tablet, 325 MG PO TID, (Reported) Fluticasone Propionate 9.9 Ml [place].susp, 2 SPRAY NS DAILY PRN for ALLERGIES, (Reported) Glipizide 10 Mg Tablet, 10 MG PO BID, (Reported) Levothyroxine Sodium 112 Mcg Tablet, 112 MCG PO DAILY, (Reported) Metformin HCl 1,000 Mg Tablet, 1,000 MG PO BID, (Reported) Metronidazole 45 Gm Cream..g., TP HS, (Reported) Ondansetron 8 Mg Tab.rapdis, 8 MG PO Q3H PRN for NAUSEA/VOMITING-1ST LINE, (Reported) Pantoprazole Sodium 40 Mg Tablet.dr, 40 MG PO HS, (Reported) Pimecrolimus 30 Gm Cream.gm., TP DAILY PRN for PSORIASIS, (Reported) Pioglitazone HCl 30 Mg Tablet, 30 MG PO HS, (Reported) Sitagliptin Phosphate 100 Mg Tablet, 100 MG PO DAILY, (Reported) Patient Home Medication List Home Medication List Reviewed: Yes Past Kmggmlv-Qjwrsn-Nltrps Hx Past Med/Social Hx: Reviewed Nursing Past Med/Soc Hx Patient Social History Alcohol Use: Occasionally Uses Number of Drinks Today: BB Alcohol Beverage of Choice: [place] Recreational Drug Use: No Smoking Status: Former Smoker Type Used: Cigarettes Former Smoker, Quit: Jul 04, 1980 2nd Hand Smoke Exposure: Yes Recent Foreign Travel: No Contact w/Someone Who Travel: No Recent Infectious Disease Expo: No Recent Hopitalizations: Yes (SEP 2018-[place] COLON/SURGERY) Physical Abuse: No Sexual Abuse: No Mistreated: No Fear: No Immunizations Up To Date Tetanus Booster (TDap): Unknown Date of Pneumonia Vaccine: Jul 26, 2016 Date of Influenza Vaccine: May 04, 2018 Seasonal Allergies Seasonal Allergies: No Past Medical History Surgeries: Yes (BLADDER SURGERY-CANCER, COLON RESECTION ) Bowel Surgery, Cardiac, Coronary Stent Respiratory: Yes Pulmonary Embolism Currently Using CPAP: No Currently Using BIPAP: No Cardiac: Yes (stents in 1996, ANGIOPLASTY 06/2018) Coronary Artery Disease, High Cholesterol, Hypertension Neurological: No Sexually Transmitted Disease: No HIV/AIDS: No Genitourinary: Yes (bladder cancer in past) Bladder Infection Gastrointestinal: Yes (COLON CA) Musculoskeletal: No Endocrine: Yes Diabetes, Non-Insulin dep HEENT: Yes (GLASSES) Cataract Loss of Vision: Bilateral Hearing Impairment: Denies Cancer: Yes Bladder, Colon Did You Recieve Any Treatments: Yes What Type of Treatment Did You: Chemotherapy, Surgical Intervention Psychosocial: No Integumentary: Yes Psoriasis Blood Disorders: No (ANEMIA) Adverse Reaction/Blood Tranf: No (HAS HAD BLOOD WITH NO REACTION) Family Medical History CAD Over 55 Years Old Review of Systems-General Constitutional: dizziness, malaise EENTM: no symptoms reported Respiratory: no symptoms reported Cardiovascular: no symptoms reported Gastrointestinal: diarrhea, nausea, vomiting Genitourinary: no symptoms reported Musculoskeletal: no symptoms reported Skin: no symptoms reported Psychiatric/Neurological: No Symptoms Reported Physical Exam-General Problems Physical Exam Vital Signs Vital Signs - First Documented 12/04/18 12:50 Temp 96.7 Pulse 97 Resp 18 B/P (MAP) 112/68 (83) Pulse Ox 98 O2 Delivery Room Air Capillary Refill : Less Than 3 SecondsLess Than 3 Seconds General Appearance: WD/WN, no apparent distress Eyes: Bilateral Eye Normal Inspection, Bilateral Eye EOMI Respiratory: chest non-tender, lungs clear, normal breath sounds, no respiratory distress, no accessory muscle use Cardiovascular: regular rate, rhythm, no edema, no murmur Gastrointestinal: normal bowel sounds, non tender, soft Extremities: normal inspection Neurologic/Psychiatric: manager trading II-XII nml as tested, no motor/sensory deficits, alert, normal mood/affect, oriented x 3 Skin: normal color, warm/dry Assessment/Plan Assessment/Plan Admission Diagnosis/Plan 68 yo male with colon cancer s/p hemicolectomy is currently on adjuvant chemotherapy. He suffered from hypovolemia secondary to decreased PO intake and diarrhea. Patient is improved after IV fluids. He will follow up in clinic as previously scheduled. Clinical Quality Measures DVT/VTE Risk/Contraindication: Risk Factor Score Per Nursin RFS Level Per Nursing on Admit: 4+=Very High Results Labs Labs Laboratory Tests 12/05/18 06:00: White Blood Count 4.1L, Red Blood Count 4.02L, Hemoglobin 9.8L, Hematocrit 31L, Mean Corpuscular Volume 76L, Mean Corpuscular Hemoglobin 24L, Mean Corpuscular Hemoglobin Concent 32, Red Cell Distribution Width 18.8H, Platelet Count 160, Mean Platelet Volume 9.6, Neutrophils (%) (Auto) 41L, Lymphocytes (%) (Auto) 45H , Monocytes (%) (Auto) 12, Eosinophils (%) (Auto) 2, Basophils (%) (Auto) 0, Neutrophils # (Auto) 1.7L, Lymphocytes # (Auto) 1.9, Monocytes # (Auto) 0.5, Eosinophils # (Auto) 0.1, Basophils # (Auto) 0.0, Sodium Level 134L, Potassium Level 3.9, Chloride Level 104, Carbon Dioxide Level 19L, Anion Gap 11, Blood Urea Nitrogen 15, Creatinine 1.12, Estimat Glomerular Filtration Rate > 60, BUN/Creatinine Ratio 13, Glucose Level 189H, Calcium Level 8.0L, Corrected Calcium 8.7, Total Bilirubin 0.4, Aspartate Amino Transf (AST/SGOT) 11, Alanine Aminotransferase (ALT/SGPT) 12, Alkaline Phosphatase 58, Total Protein 5.7L, Albumin 3.1L 12/05/18 11:44: Glucometer 221H 12/05/18 15:42: Glucometer 231H NAHOMY ORDOÑEZ MD December 05, 2018 19:37
== END 2018-12-05 18:08 | disposition home or self-care (01) ==
LOC: EDUNIT# 12:48 → ER FS 13:00 → 4TH 17:03
PROVIDERS: ADMIT Internal Medicine; ATTEND Internal Medicine
DX: E86.1 Hypovolemia (principal); R11.2 Nausea with vomiting, unspecified; R19.7 Diarrhea, unspecified; C18.9 Malignant neoplasm of colon, unspecified; C77.9 Secondary and unspecified malignant neoplasm of lymph node, unspecified; E11.9 Type 2 diabetes mellitus without complications; I25.10 Atherosclerotic heart disease of native coronary artery without angina pectoris; I10 Essential (primary) hypertension; E78.00 Pure hypercholesterolemia, unspecified; Z85.51 Personal history of malignant neoplasm of bladder; Z79.82 Long term (current) use of aspirin; Z79.84 Long term (current) use of oral hypoglycemic drugs; Z79.899 Other long term (current) drug therapy; Z87.891 Personal history of nicotine dependence; Z95.5 Presence of coronary angioplasty implant and graft; Z86.711 Personal history of pulmonary embolism
CPT/HCPCS: 36415; 70450; 74177; 80053; 81000; 82962; 83690; 84484; 85007; 85025; 85027; 93005; G0378

== ENCOUNTER 2018-12-06 08:48 | Inpatient (IN) | payer MEDICARE ==
[~2018-12-06] VITALS: Ht 190.5 cm; Wt 93.4 kg
[2018-12-06] VITALS (7 sets, daily range): BP systolic 76–156; BP diastolic 45–80
[2018-12-06] MEDS: POTASSIUM CL 10MEQ/50ML IVPB 50 ML IV SCH ×3 (07:45→11:58)
[~2018-12-06 08:48] MED LIST changes: +CAPE500T14 PO; +CHLO4TAB36 PO; +ONDA8TAB13 PO
--- NOTE | 2018-12-06 09:02 | ED Syncope ---
General Chief Complaint: Cardiac/General Problems Stated Complaint: LOW BP Nursing Triage Note: Patient c/o low blood pressure, weakness, dizziness. States that he had IV chemotherapy on the 21 of November and is currently taking oral chemotherapy drugs. Also c/o diarrhea for the past 2 weeks but has not vomited in the past 3 days. Source of Information: Patient, Old Records, RN Notes Reviewed Exam Limitations: No Limitations History of Present Illness Date Seen by Provider: December 06, 2018 Time Seen by Provider: 09:01 Initial Comments Patient presents c/ c/o being lightheaded/dizzy, weak, & near syncopal. BP @ home was low. Recently here c/ similar complaints and admitted to [facility]. Discharge yesterday @ which time he was feeling better. Patient reports diarrhea x 2 weeks. Hasn't vomited in 3 days. States he did have a low grade fever last PM. Patient receiving chemo for colon cancer. Timing/Prior Episodes: Recent History Symptoms Prior to Episode: Lightheadedness, Nausea Precipitating Factors: Standing Loss of Consciousness: No Loss of Consciousness Current Symptoms: Dizziness, Lightheadedness, Nausea, Weakness Allergies and Home Medications Allergies Coded Allergies: No Known Drug Allergies (Unverified , 11/15/18) Home Medications Aspirin 81 Mg Tablet.dr, 81 MG PO DAILY, (Reported) Atorvastatin Calcium 40 Mg Tablet, 40 MG PO HS, (Reported) Azelaic Acid 50 Gm Gel..gram., TP DAILY, (Reported) Capecitabine 500 Mg Tablet, PO UD, (Reported) TAKE 4 TABLETS BY MOUTH EVERY 12 HOURS FOR 14 DAYS THEN OFF FOR 7 DAYS Chlorpheniramine Maleate 4 Mg Tablet, 4 MG PO DAILY, (Reported) Chlorpheniramine Maleate 4 Mg Tablet, 4 MG PO BID PRN for ALLERGIES, (Reported) Cyanocobalamin (Vitamin B-12) 1,000 Mcg Tablet, 1,000 MCG PO HS, (Reported) Ferrous Sulfate 325 Mg Tablet, 325 MG PO TID, (Reported) Fluticasone Propionate 9.9 Ml [place].susp, 2 SPRAY NS DAILY PRN for ALLERGIES, (Reported) Glipizide 10 Mg Tablet, 10 MG PO BID, (Reported) Levothyroxine Sodium 112 Mcg Tablet, 112 MCG PO DAILY, (Reported) Metformin HCl 1,000 Mg Tablet, 1,000 MG PO BID, (Reported) Metronidazole 45 Gm Cream..g., TP HS, (Reported) Ondansetron 8 Mg Tab.rapdis, 8 MG PO Q3H PRN for NAUSEA/VOMITING-1ST LINE, (Reported) Pantoprazole Sodium 40 Mg Tablet.dr, 40 MG PO HS, (Reported) Pimecrolimus 30 Gm Cream.gm., TP DAILY PRN for PSORIASIS, (Reported) Pioglitazone HCl 30 Mg Tablet, 30 MG PO HS, (Reported) Sitagliptin Phosphate 100 Mg Tablet, 100 MG PO DAILY, (Reported) Patient Home Medication List Home Medication List Reviewed: Yes Review of Systems Constitutional: see HPI, dizziness, weakness Cardiovascular: syncope (near) Gastrointestinal: see HPI, diarrhea (x 2 weeks), nausea; No vomiting (x 3 days) Psychiatric/Neurological: Weakness All Other Systems Reviewed Negative Unless Noted: Yes (Negative excepted noted.) Past Bqhvbfj-Wndmon-Zwssqq Hx Patient Social History Alcohol Beverage of Choice: [place] Type Used: Cigarettes Former Smoker, Quit: Jul 04, 1980 2nd Hand Smoke Exposure: Yes Recent Foreign Travel: No Contact w/Someone Who Travel: No Recent Infectious Disease Expo: No Recent Hopitalizations: Yes (SEP 2018-[place] COLON/SURGERY) Physical Abuse: No Sexual Abuse: No Mistreated: No Fear: No Immunizations Up To Date Tetanus Booster (TDap): Unknown Date of Pneumonia Vaccine: Jul 26, 2016 Date of Influenza Vaccine: May 04, 2018 Seasonal Allergies Seasonal Allergies: No Past Medical History Surgeries: Yes (BLADDER SURGERY-CANCER, COLON RESECTION ) Bowel Surgery, Cardiac, Coronary Stent Respiratory: Yes Pulmonary Embolism Currently Using CPAP: No Currently Using BIPAP: No Cardiac: Yes (stents in 1996, ANGIOPLASTY 06/2018) Coronary Artery Disease, High Cholesterol, Hypertension Neurological: No Sexually Transmitted Disease: No HIV/AIDS: No Genitourinary: Yes (bladder cancer in past) Bladder Infection Gastrointestinal: Yes (COLON [place]) Musculoskeletal: No Endocrine: Yes Diabetes, Non-Insulin dep HEENT: Yes (GLASSES) Cataract Loss of Vision: Bilateral Hearing Impairment: Denies Cancer: Yes Bladder, Colon Did You Recieve Any Treatments: Yes What Type of Treatment Did You: Chemotherapy, Surgical Intervention Psychosocial: No Integumentary: Yes Psoriasis Blood Disorders: No (ANEMIA) Adverse Reaction/Blood Tranf: No (HAS HAD BLOOD WITH NO REACTION) Family Medical History CAD Over 55 Years Old Physical Exam Vital Signs Vital Signs - First Documented 12/06/18 08:49 Temp 99.1 Pulse 105 Resp 16 B/P (MAP) 102/54 (70) Pulse Ox 94 O2 Delivery Room Air Capillary Refill : Less Than 3 Seconds Height, Weight, BMI Height: 6'3.00" Weight: 195lbs. 1.0oz. [id number]; 24.9 BMI Method:Stated General Appearance: No Apparent Distress, WD/WN HEENT: Normal ENT Inspection Neck: Normal Inspection Cardiovascular: Tachycardia Respiratory: No Respiratory Distress Neurologic/Psychiatric: Alert, Oriented x3, No Motor/Sensory Deficits Cranial Nerves: Normal Hearing, Normal Speech Skin: Warm/Dry Focused Exam Lactate Level 12/06/18 09:30: Lactic Acid Level 1.05 Lactic Acid Level Laboratory Tests Test 12/06/18 09:30 Lactic Acid Level 1.05 MMOL/L (0.50-2.00) Progress/Results/Core Measures Results/Orders Lab Results Laboratory Tests Test 12/06/18 09:30 12/06/18 10:52 Range/Units White Blood Count 3.5 L 4.3-11.0 10^3/uL Red Blood Count 3.70 L 4.35-5.85 10^6/uL Hemoglobin 9.1 L 13.3-17.7 G/DL Hematocrit 29 L 40-54 % Mean Corpuscular Volume 77 L 80-99 FL Mean Corpuscular Hemoglobin 25 25-34 PG Mean Corpuscular Hemoglobin Concent 32 32-36 G/DL Red Cell Distribution Width 18.3 H 10.0-14.5 % Platelet Count 147 130-400 10^3/uL Mean Platelet Volume 9.7 7.4-10.4 FL Neutrophils (%) (Auto) 45 42-75 % Lymphocytes (%) (Auto) 42 12-44 % Monocytes (%) (Auto) 10 0-12 % Eosinophils (%) (Auto) 3 0-10 % Basophils (%) (Auto) 0 0-10 % Neutrophils # (Auto) 1.6 L 1.8-7.8 X 10^3 Lymphocytes # (Auto) 1.5 1.0-4.0 X 10^3 Monocytes # (Auto) 0.4 0.0-1.0 X 10^3 Eosinophils # (Auto) 0.1 0.0-0.3 10^3/uL Basophils # (Auto) 0.0 0.0-0.1 10^3/uL Neutrophils % (Manual) 25 % Lymphocytes % (Manual) 32 % Monocytes % (Manual) 6 % Eosinophils % (Manual) 1 % Band Neutrophils 28 % Reactive Lymphocytes 8 % Hypochromasia 2+ Microcytosis 1+ Elliptocytes SLIGHT Sodium Level 128 L 135-145 MMOL/L Potassium Level 3.0 L 3.6-5.0 MMOL/L Chloride Level 94 L 98-107 MMOL/L Carbon Dioxide Level 20 L 21-32 MMOL/L Anion Gap 14 5-14 MMOL/L Blood Urea Nitrogen 11 7-18 MG/DL Creatinine 1.18 0.60-1.30 MG/DL Estimat Glomerular Filtration Rate > 60 BUN/Creatinine Ratio 9 Glucose Level 220 H 70-105 MG/DL Lactic Acid Level 1.05 0.50-2.00 MMOL/L Calcium Level 7.5 L 8.5-10.1 MG/DL Corrected Calcium 8.1 L 8.5-10.1 MG/DL Magnesium Level 1.2 L 1.8-2.4 MG/DL Total Bilirubin 0.4 0.1-1.0 MG/DL Aspartate Amino Transf (AST/SGOT) 14 5-34 U/L Alanine Aminotransferase (ALT/SGPT) 10 0-55 U/L Alkaline Phosphatase 56 40-136 U/L Troponin T 150 *H <=15 NG/L Total Protein 5.8 L 6.4-8.2 GM/DL Albumin 3.2 3.2-4.5 GM/DL Lipase 27 8-78 U/L Urine Color YELLOW Urine Clarity CLEAR Urine pH 6.0 5-9 Urine Specific [place] 1.020 1.016-1.022 Urine Protein TRACE H NEGATIVE Urine Glucose (UA) 3+ H NEGATIVE Urine Ketones NEGATIVE NEGATIVE Urine Nitrite NEGATIVE NEGATIVE Urine Bilirubin NEGATIVE NEGATIVE Urine Urobilinogen 0.2 NORMAL MG/DL Urine Leukocyte Esterase NEGATIVE NEGATIVE Urine RBC (Auto) NEGATIVE NEGATIVE Urine RBC NONE /HPF Urine WBC 0-2 /HPF Urine Crystals NONE /LPF Urine Bacteria NEGATIVE /HPF Urine Casts NONE /LPF Urine Mucus SMALL H /LPF Urine Culture Indicated NO Stool Occult Blood Immunoassay POSITIVE H NEGATIVE My Orders Orders - ALBERTO KNOTT DO Ed Iv/Invasive Line Start (12/06/18 09:02) Orthostatic Vital Signs (Adult (12/06/18 09:02) Cbc With Automated Diff (12/06/18 09:02) Comprehensive Metabolic Panel (12/06/18 09:02) Lipase (12/06/18 09:02) Magnesium (12/06/18 09:02) Ua Culture If Indicated (12/06/18 09:02) Lactated Ringers (Lr 1000 Ml Iv Solution (12/06/18 09:15) Lactic Acid Analyzer (12/06/18 09:17) Blood Culture (12/06/18 09:17) Stool Culture (12/06/18 09:20) Fecal Wbc (12/06/18 09:20) C Difficile Ag + Toxin A/B. (12/06/18 09:20) Rotavirus Antigen (12/06/18 09:20) Occult Blood Stool (12/06/18 09:20) Blood Culture (12/06/18 10:00) Ekg Tracing (12/06/18 10:20) Troponin T (12/06/18 10:21) Chest 1 View Ap/Pa Only (12/06/18 10:21) Potassium Chloride Powder (Klor Con 20 M (12/06/18 10:45) Potassium Cl 10meq/50ml Ivpb (Kcl 10 Meq (12/06/18 10:45) Ns Iv 1000 Ml (Sodium Chloride 0.9%) (12/06/18 10:45) Manual Differential (12/06/18 09:30) Medications Given in ED Current Medications Medications Dose Ordered Sig/Rabia Route Start Time Stop Time Status Last Admin Dose Admin Sodium Chloride 1,000 ml ONCE ONCE IV 12/06/18 10:45 12/06/18 10:46 DC 12/06/18 11:06 1,000 ML Vital Signs/I&O 12/06/18 12/06/18 12/06/18 08:49 08:55 08:56 Temp 99.1 Pulse 105 Resp 16 B/P (MAP) 102/54 (70) 102/54 (70) 76/45 (55) 89/45 (60) Pulse Ox 94 O2 Delivery Room Air Blood Pressure Mean: 70 Progress Progress Note : Progress Note Patient definitely orthostatic upon arrival. Some better p/ a liter of LR. Voiced some c/o chest pain in the ED which resulting in us checking a CXR, EKG, and Troponin T. CXR & EKG failed to reveal anything acute, but his Troponin T returned elevated @ 150 Dr. Melchor was made aware. Initial ECG Rhythm: Normal Sinus Initial ECG Impression: Nonspecific Changes Initial ECG Comparisson: No Previous ECG Available Diagnostic Imaging Diagonstic Imaging: Xray Plain Films/CT/US/NM/MRI: chest (NAD) Departure Impression Primary Impression: Orthostatic hypotension Additional Impressions: Near syncope Dehydration Diarrhea Hyponatremia Hypokalemia Hypomagnesemia Leukopenia c/ bandemia Status post chemotherapy Episodic chest pain c/ elevated Troponin T Disposition: T-TRM HOSP Condition: Stable Transfer Time Spoke to Accepting Phy: 11:10 Transfer Progress Notes Discussed patient c/ Dr. Melchor regarding his Troponin T of 150. He requested admission to the Hospitalist that took care of him as recently as yesterday. He will be happy to consult. Discussed the patient c/ Dr. Bravo, who is familiar c/ him. He has accepted him for transfer/admission. Transfer Facility: [facility] Method of Transfer: EMS Departure-Patient Inst. Referrals: EMIL RITTER MD (PCP/Family) Primary Care Physician ALBERTO KNOTT DO December 06, 2018 09:02
[2018-12-06] MEDS ORDERED: LACTATED RINGERS 1,000 ML IV SCH (09:15)
[2018-12-06 10:26] LABS: ALANINE AMINOTRANSFERASE 10 U/L (0-55); ALBUMIN 3.2 GM/DL (3.2-4.5); ALKALINE PHOSPHATASE 56 U/L (40-136); BILIRUBIN,TOTAL 0.4 MG/DL (0.1-1.0); BUN/CREATININE RATIO 9; CALCIUM 7.5 MG/DL (8.5-10.1); CARBON DIOXIDE 20 MMOL/L (21-32); CHLORIDE 94 MMOL/L (98-107); CREATININE SERUM 1.18 MG/DL (0.60-1.30); GFR ESTIMATED > 60; GLUCOSE 220 MG/DL (70-105); LIPASE 27 U/L (8-78); MAGNESIUM 1.2 MG/DL (1.8-2.4); SODIUM 128 MMOL/L (135-145); TOTAL PROTEIN 5.8 GM/DL (6.4-8.2)
--- NOTE | 2018-12-06 10:44 | Diagnostic Imaging Report ---
EXAMINATION: Single frontal view of the chest. INDICATION: Hypotension, weakness, and dizziness. COMPARISON: Multiple priors, most recent performed on 11/16/2018. FINDINGS: Distal tip right Port-A-Cath is unchanged in position, overlying the SVC. The lungs are clear and the pulmonary vasculature is normal. No pneumothorax or large pleural effusion. The cardiomediastinal silhouette is unchanged. No acute osseous abnormality. IMPRESSION: No acute chest disease. No significant change from prior. Dictated by: Dictated on workstation # [id number]
[2018-12-06] MEDS ORDERED: NS 1000 ML IV BAG IV ONE (10:45)
[2018-12-06] MEDS ORDERED: KCL 20 MEQ POWDER FOR ORAL SOLUTION PO ONE (10:45)
[2018-12-06 10:51] LABS: BASOPHILS % (AUTO) 0 % (0-10); EOSINOPHILS % (AUTO) 3 % (0-10); HEMATOCRIT 29 % (40-54); HEMOGLOBIN 9.1 G/DL (13.3-17.7); LYMPHOCYTES % (AUTO) 42 % (12-44); MEAN CORPUSCULAR HEMOGLOBIN 25 PG (25-34); MEAN CORPUSCULAR HGB CONC 32 G/DL (32-36); MEAN CORPUSCULAR VOLUME 77 FL (80-99); MEAN PLATELET VOLUME 9.7 FL (7.4-10.4); MONOCYTES % (AUTO) 10 % (0-12); NEUTROPHILS % (AUTO) 45 % (42-75); PLATELET COUNT 147 10^3/uL (130-400); RED CELL DISTRIBUTION WIDTH 18.3 % (10.0-14.5); WHITE BLOOD COUNT 3.5 10^3/uL (4.3-11.0)
[2018-12-06 10:52] LABS: BAND NEUTROPHILS 28 %; EOSINOPHILS # (AUTO) 0.1 10^3/uL (0.0-0.3); EOSINOPHILS % (MANUAL) 1 %; LYMPHOCYTES # (AUTO) 1.5 X 10^3 (1.0-4.0); LYMPHOCYTES % (MANUAL) 32 %; MONOCYTES # (AUTO) 0.4 X 10^3 (0.0-1.0); MONOCYTES % (MANUAL) 6 %; NEUTROPHILS # (AUTO) 1.6 X 10^3 (1.8-7.8); NEUTROPHILS % (MANUAL) 25 %
[2018-12-06 10:53] LABS: ELLIPT/OVALOCYTES SLIGHT; HYPOCHROMASIA 2+; MICROCYTOSIS 1+; REACTIVE LYMPHOCYTES 8 %
[2018-12-06 11:21] LABS: BILIRUBIN,URINE NEGATIVE (NEGATIVE); CLARITY,URINE CLEAR; COLOR,URINE YELLOW; GLUCOSE, URINE (UA) 3+ (NEGATIVE); KETONES,URINE NEGATIVE (NEGATIVE); LEUKOCYTE ESTERASE ,URINE NEGATIVE (NEGATIVE); NITRITE,URINE NEGATIVE (NEGATIVE); PROTEIN,URINE TRACE (NEGATIVE); UROBILINOGEN,URINE 0.2 MG/DL (NORMAL)
[2018-12-06 11:22] LABS: BACTERIA,URINE NEGATIVE /HPF; WBC,URINE 0-2 /HPF
[2018-12-06] MEDS ORDERED: fentaNYL INJECTION 100 MCG/2 ML AMP IVP STA (11:32)
[2018-12-06] MEDS: NS IV 1000 ML 1,000 ML IV SCH ×3 (13:00→14:30)
--- NOTE | 2018-12-06 13:12 | NUR ---
PATIENT WAS JUST DISCHARGED YESTERDAY AT WHICH TIME NO CHANGES WERE MADE TO THE MEDICATIONS. I HAD REVIEWED THE MED REC WITH THE PATIENT AT HIS PREVIOUS VISIT. I REVIEWED THE MEDICATIONS THEY ARE, I DID NOT RE-INTERVIEW THE PATIENT AT THIS TIME.
[2018-12-06] MEDS ORDERED: VANCOMYCIN INJECTION 0.1 MG in NS (IVPB) 250 ML IV SCH (17:00)
--- NOTE | 2018-12-06 17:10 | Consultation-Cardiology ---
HPI-Cardiology Cardiology Consultation Date of Consultation 12/06/18 Date of Admission Time Seen by Provider: 17:05 Indication: elevated troponin level HPI 68 years old gentleman with history of colon cancer, had right hemicolectomy, has been having diarrhea with nausea and vomiting for the past 2 weeks. He was admitted overnight and discharged yesterday, continue to have diarrhea and episode of dizziness, near-syncope, reported syncopal episode prior to the previous admission. In the emergency room he was noted to have elevated troponin level. Had workup showed positive C. difficile colitis toxin. Still having diarrhea and nausea. No chest pain. No palpitation. No syncope or near syncopal episodes. Home Medications & Allergies Allergies: Coded Allergies: No Known Drug Allergies (Unverified , 11/15/18) Home Medication List Reviewed: Yes FWA-Ggffro-Vynkcz Hx Patient Social History Marital Status: Employed/Student: employed, retired Alcohol Use: Denies Use Recreational Drug Use: No Smoking Status: Former Smoker Type Used: Cigarettes 2nd Hand Smoke Exposure: Yes Recent Foreign Travel: No Recent Infectious Disease Expo: No Recent Hopitalizations: Yes (SEP 2018-[place]/SURGERY) Immunizations Up To Date Tetanus Booster (TDap): Unknown Date of Pneumonia Vaccine: Jul 26, 2016 Date of Influenza Vaccine: May 04, 2018 Past Medical History discussed below Family Medical History Significant Family History: CAD Over 55 Years Old Family Medical Hx noncontributory Review of Systems-General Review of Systems Constitutional: see HPI, dizziness, weakness EENTM: no symptoms reported Respiratory: no symptoms reported, see HPI Cardiovascular: see HPI; No chest pain, No edema, No Hx of Intervention, No pa lpitations; syncope (near); No vascular heart diseas, No other Gastrointestinal: see HPI, diarrhea (x 2 weeks), nausea; No vomiting (x 3 days) Genitourinary: no symptoms reported, see HPI Musculoskeletal: no symptoms reported, see HPI Skin: no symptoms reported, see HPI Psychiatric/Neurological: Weakness All Other Systems Reviewed Negative Unless Noted: Yes (Negative excepted noted.) Reviewed Test Results Reviewed Test Results Lab Laboratory Tests Test 12/06/18 09:30 12/06/18 10:52 12/06/18 15:18 Range/Units White Blood Count 3.5 L 4.3-11.0 10^3/uL Red Blood Count 3.70 L 4.35-5.85 10^6/uL Hemoglobin 9.1 L 13.3-17.7 G/DL Hematocrit 29 L 40-54 % Mean Corpuscular Volume 77 L 80-99 FL Mean Corpuscular Hemoglobin 25 25-34 PG Mean Corpuscular Hemoglobin Concent 32 32-36 G/DL Red Cell Distribution Width 18.3 H 10.0-14.5 % Platelet Count 147 130-400 10^3/uL Mean Platelet Volume 9.7 7.4-10.4 FL Neutrophils (%) (Auto) 45 42-75 % Lymphocytes (%) (Auto) 42 12-44 % Monocytes (%) (Auto) 10 0-12 % Eosinophils (%) (Auto) 3 0-10 % Basophils (%) (Auto) 0 0-10 % Neutrophils # (Auto) 1.6 L 1.8-7.8 X 10^3 Lymphocytes # (Auto) 1.5 1.0-4.0 X 10^3 Monocytes # (Auto) 0.4 0.0-1.0 X 10^3 Eosinophils # (Auto) 0.1 0.0-0.3 10^3/uL Basophils # (Auto) 0.0 0.0-0.1 10^3/uL Neutrophils % (Manual) 25 % Lymphocytes % (Manual) 32 % Monocytes % (Manual) 6 % Eosinophils % (Manual) 1 % Band Neutrophils 28 % Reactive Lymphocytes 8 % Hypochromasia 2+ Microcytosis 1+ Elliptocytes SLIGHT Sodium Level 128 L 135-145 MMOL/L Potassium Level 3.0 L 3.6-5.0 MMOL/L Chloride Level 94 L 98-107 MMOL/L Carbon Dioxide Level 20 L 21-32 MMOL/L Anion Gap 14 5-14 MMOL/L Blood Urea Nitrogen 11 7-18 MG/DL Creatinine 1.18 0.60-1.30 MG/DL Estimat Glomerular Filtration Rate > 60 BUN/Creatinine Ratio 9 Glucose Level 220 H 70-105 MG/DL Lactic Acid Level 1.05 0.50-2.00 MMOL/L Calcium Level 7.5 L 8.5-10.1 MG/DL Corrected Calcium 8.1 L 8.5-10.1 MG/DL Magnesium Level 1.2 L 1.8-2.4 MG/DL Total Bilirubin 0.4 0.1-1.0 MG/DL Aspartate Amino Transf (AST/SGOT) 14 5-34 U/L Alanine Aminotransferase (ALT/SGPT) 10 0-55 U/L Alkaline Phosphatase 56 40-136 U/L Troponin T 150 *H <=15 NG/L Total Protein 5.8 L 6.4-8.2 GM/DL Albumin 3.2 3.2-4.5 GM/DL Lipase 27 8-78 U/L Urine Color YELLOW Urine Clarity CLEAR Urine pH 6.0 5-9 Urine Specific [place] 1.020 1.016-1.022 Urine Protein TRACE H NEGATIVE Urine Glucose (UA) 3+ H NEGATIVE Urine Ketones NEGATIVE NEGATIVE Urine Nitrite NEGATIVE NEGATIVE Urine Bilirubin NEGATIVE NEGATIVE Urine Urobilinogen 0.2 NORMAL MG/DL Urine Leukocyte Esterase NEGATIVE NEGATIVE Urine RBC (Auto) NEGATIVE NEGATIVE Urine RBC NONE /HPF Urine WBC 0-2 /HPF Urine Crystals NONE /LPF Urine Bacteria NEGATIVE /HPF Urine Casts NONE /LPF Urine Mucus SMALL H /LPF Urine Culture Indicated NO Stool Occult Blood Immunoassay POSITIVE H NEGATIVE Troponin I 0.806 *H <0.028 NG/ML Physical Exam Physical Exam Vital Signs Vital Signs - First Documented 12/06/18 08:49 Temp 99.1 Pulse 105 Resp 16 B/P (MAP) 102/54 (70) Pulse Ox 94 O2 Delivery Room Air Capillary Refill : Less Than 3 SecondsLess Than 3 Seconds Height, Weight, BMI Height: 6'3.00" Weight: 209lbs. 0.0oz. 94.883084rr; 26.1 BMI Method:Stated General Appearance: No Apparent Distress, WD/WN Eyes: Bilateral Eye Normal Inspection, Bilateral Eye PERRL, Bilateral Eye EOMI HEENT: Normal ENT Inspection Neck: Normal Inspection Respiratory: Chest Non Tender, Lungs Clear, Normal Breath Sounds, No Respiratory Distress Cardiovascular: Regular Rate, Rhythm, No Edema, No Gallop, No JVD, No Murmur, Tachycardia Gastrointestinal: Normal Bowel Sounds, No Organomegaly, No Pulsatile Mass, Non Tender, Soft Back: Normal Inspection, No CVA Tenderness, No Vertebral Tenderness Extremity: Normal Capillary Refill, Normal Inspection, Normal Range of Motion, Non Tender, No Calf Tenderness, No Pedal Edema Neurologic/Psychiatric: Alert, Oriented x3, No Motor/Sensory Deficits Skin: Warm/Dry Lymphatic: No Adenopathy A/P-Cardiology Admission Diagnosis Type II myocardial infarction C. difficile colitis Syncope Diarrhea Assessment/Plan C. difficile colitis, I will start him on vancomycin orally, consult Dr. Osorio. Nausea and vomiting, diarrhea, secondary to colitis. Continue to monitor, continue IV fluid Syncope, episode of dizziness and lightheadedness secondary to hypotension and hypovolemia. Continue to monitor Type II myocardial infarction, known to have history of coronary artery disease as described below. No EKG changes, no active chest pain, continue to monitor troponin, start aspirin 81 mg daily. Anemia, continue to monitor H&H. Coronary artery disease, history of multiple stents in the past, had 2 stents in the , had a cardiac catheterization after having myocardial infarction in June 2018 which showed severe instent restenosis in the proximal and mid LAD underwent balloon angioplasty using 2.5 x 15 mm balloon with a good results, moderate to severe disease at the distal LAD that was treated medically due to the size of the artery. Had severe proximal circumflex artery stenosis with successful balloon angioplasty with excellent results. Unable to advance the stent due to the angle of the takeoff of the circumflex artery. Has been doing well, restart aspirin today. 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 Diabetes mellitus, followed and managed by primary care physician Hyperlipidemia, was on statin, hold statin now due to the persistent diarrhea. Continue to monitor Hypotension, labile blood pressure, keep him off blood pressure medication for now and monitor History of bladder cancer. Currently in remission Hypothyroidism, followed and managed by primary care physician Strong family history of heart disease with multiple family members with heart attack and bypass surgeries Clinical Quality Measures DVT/VTE Risk/Contraindication: Risk Factor Score Per Nursin RFS Level Per Nursing on Admit: 4+=Very High TAVON SUGGS MD December 06, 2018 17:10
--- NOTE | 2018-12-06 18:03 | History & Physical-Hospitalist ---
History of Present Illness HPI/Chief Complaint The patient was a 68-year-old white male who had overnight it here for IV fluids and was dismissed yesterday. He reports that during the night he began to have watery diarrhea. Prior to that he had had loose stools. He had taken an antibiotic which he cannot name at this time, the end of October. He has also been taking an oral chemotherapy agent. This is for node positive colon cancer. He has also had low blood pressures at times. This is noted over the past several days. During those moments he is not able to stand up safely. He completed his course of chemotherapy yesterday and will be due to start again next Monday. His stool tested positive for C. difficile today. Date Seen 12/06/18 Time Seen by a Provider: 18:03 Attending Physician Avery Dia MD PCP Hans Farmer MD Referring Physician Date of Admission December 06, 2018 at 11:31 Home Medications & Allergies Home Medications Reviewed patient Home Medication Reconciliation performed by pharmacy medication reconciliations actuarial technician and/or nursing. Patients Allergies have been reviewed. Allergies Allergies Coded Allergies No Known Drug Allergies (Unverified11/15/18) Past Looicvn-Ubpsoe-Iemaih Hx Patient Social History Marrital Status: Employed/Student: employed, retired Alcohol Use: Denies Use Number of Drinks Today: BB Alcohol Beverage of Choice: [place] Recreational Drug Use: No Smoking Status: Former Smoker Former Smoker, Quit: Jul 04, 1980 Type Used: Cigarettes 2nd Hand Smoke Exposure: Yes Recent Foreign Travel: No Contact w/other who traveled: No Recent Hopitalizations: Yes (SEP 2018-[place]/SURGERY) Recent Infectious Disease Expo: No Immunizations Up To Date Tetanus Booster (TDap): Unknown Date of Pneumonia Vaccine: Jul 26, 2016 Date of Influenza Vaccine: May 04, 2018 Seasonal Allergies Seasonal Allergies: No Past Medical History Surgeries: Bowel Surgery, Cardiac, Coronary Stent Currently Using CPAP: No Currently Using BIPAP: No Cardiac: Coronary Artery Disease, High Cholesterol, Hypertension Sexually Transmitted Disease: No HIV/AIDS: No Genitourinary: Bladder Infection Endocrine: Diabetes, Non-Insulin dep HEENT: Cataract Loss of Vision: Bilateral Hearing Impairment: Denies Cancer: Bladder, Colon Did You Recieve Any Treatments: Yes What Type of Treatment Did You: Chemotherapy, Surgical Intervention Skin/Integumentary: Psoriasis 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) Adverse Reaction to Blood [place]: No (HAS HAD BLOOD WITH NO REACTION) Family History CAD Over 55 Years Old Physical Exam Physical Exam Vital Signs Vital Signs - First Documented 12/06/18 08:49 Temp 99.1 Pulse 105 Resp 16 B/P (MAP) 102/54 (70) Pulse Ox 94 O2 Delivery Room Air Capillary Refill : Less Than 3 SecondsLess Than 3 Seconds Height, Weight, BMI Height: 6'3.00" Weight: 209lbs. 0.0oz. 94.602620ee; 26.1 BMI Method:Stated Results Results/Procedures Labs Laboratory Tests 12/06/18 09:30 Patient resulted labs reviewed. Clinical Quality Measures DVT/VTE Risk/Contraindication: Risk Factor Score Per Nursin RFS Level Per Nursing on Admit: 4+=Very High AVERY DIA MD December 06, 2018 18:03
[2018-12-06] MEDS: VANCOMYCIN ORAL 250 MG/5 ML 120 ML PO SCH ×4 (18:04→23:59)
--- NOTE | 2018-12-06 18:10 | Consultation ---
History of Present Illness History of Present Illness Patient Consulted On(jim/time) 12/06/18 18:01 Date Seen by Provider: December 06, 2018 Time Seen by Provider: 18:17 Reason for Visit: elevated troponin level History of Present Illness Mr. Jose is a 68 yo male with h/o bladder cancer, CAD, DM, HTN, hypothyroidism who was recently diagnosed with stage III high risk colon cancer. He underwent hemicolectomy and was then started on adjuvant chemotherapy with capecitabine and oxaliplatin, first dose on 11/21/18. He is scheduled to take capecitabine BID for 2 weeks, then have 1 week without any treatment. He finished his first course of capecitabine just recently. Patient was admitted two night ago with hypotension secondary to poor PO intake and diarrhea for multiple weeks. Patient notes that he has had issues with diarrhea for years but it has never lead to syncope. After discharge last night, patient continued to suffer from diarrhea episodes and developed a fever up to 101. This morning, he measured his blood pressured at home and systolic BPs were in the 70s. He was admitted this morning with syncope. He denied any chest pain or palpitations or shortness of breath. He was noted to have an elevated troponin in the ED and was subsequently admitted to the ICU for cardiac monitoring. Allergies and Home Medications Allergies Coded Allergies: No Known Drug Allergies (Unverified , 11/15/18) Home Medications Aspirin 81 Mg Tablet.dr, 81 MG PO DAILY, (Reported) Atorvastatin Calcium 40 Mg Tablet, 40 MG PO HS, (Reported) Azelaic Acid 50 Gm Gel..gram., TP DAILY, (Reported) Capecitabine 500 Mg Tablet, PO UD, (Reported) TAKE 4 TABLETS BY MOUTH EVERY 12 HOURS FOR 14 DAYS THEN OFF FOR 7 DAYS Chlorpheniramine Maleate 4 Mg Tablet, 4 MG PO DAILY, (Reported) Chlorpheniramine Maleate 4 Mg Tablet, 4 MG PO BID PRN for ALLERGIES, (Reported) Cyanocobalamin (Vitamin B-12) 1,000 Mcg Tablet, 1,000 MCG PO HS, (Reported) Ferrous Sulfate 325 Mg Tablet, 325 MG PO TID, (Reported) Fluticasone Propionate 9.9 Ml [place].susp, 2 SPRAY NS DAILY PRN for ALLERGIES, (Reported) Glipizide 10 Mg Tablet, 10 MG PO BID, (Reported) Levothyroxine Sodium 112 Mcg Tablet, 112 MCG PO DAILY, (Reported) Metformin HCl 1,000 Mg Tablet, 1,000 MG PO BID, (Reported) Metronidazole 45 Gm Cream..g., TP HS, (Reported) Ondansetron 8 Mg Tab.rapdis, 8 MG PO Q3H PRN for NAUSEA/VOMITING-1ST LINE, (Reported) Pantoprazole Sodium 40 Mg Tablet.dr, 40 MG PO HS, (Reported) Pimecrolimus 30 Gm Cream.gm., TP DAILY PRN for PSORIASIS, (Reported) Pioglitazone HCl 30 Mg Tablet, 30 MG PO HS, (Reported) Sitagliptin Phosphate 100 Mg Tablet, 100 MG PO DAILY, (Reported) Patient Home Medication List Home Medication List Reviewed: Yes Past Eyqimmg-Qlxavl-Yvdyoc Hx Patient Social History Alcohol Use: Denies Use Number of Drinks Today: BB Alcohol Beverage of Choice: [place] Recreational Drug Use: No Smoking Status: Former Smoker Type Used: Cigarettes Former Smoker, Quit: Jul 04, 1980 2nd Hand Smoke Exposure: Yes Recent Foreign Travel: No Contact w/Someone Who Travel: No Recent Infectious Disease Expo: No Recent Hopitalizations: Yes (SEP 2018-[place] COLON/SURGERY) Physical Abuse: No Sexual Abuse: No Mistreated: No Fear: No Immunizations Up To Date Tetanus Booster (TDap): Unknown Date of Pneumonia Vaccine: Jul 26, 2016 Date of Influenza Vaccine: May 04, 2018 Seasonal Allergies Seasonal Allergies: No Past Medical History Surgeries: Yes (BLADDER SURGERY-CANCER, COLON RESECTION ) Bowel Surgery, Cardiac, Coronary Stent Respiratory: Yes Pulmonary Embolism Currently Using CPAP: No Currently Using BIPAP: No Cardiac: Yes (stents in 1996, ANGIOPLASTY 06/2018) Coronary Artery Disease, High Cholesterol, Hypertension Neurological: No Sexually Transmitted Disease: No HIV/AIDS: No Genitourinary: Yes (bladder cancer in past) Bladder Infection Gastrointestinal: Yes (COLON CA) Musculoskeletal: No Endocrine: Yes Diabetes, Non-Insulin dep HEENT: Yes (GLASSES) Cataract Loss of Vision: Bilateral Hearing Impairment: Denies Cancer: Yes Bladder, Colon Did You Recieve Any Treatments: Yes What Type of Treatment Did You: Chemotherapy, Surgical Intervention Psychosocial: No Integumentary: Yes Psoriasis Blood Disorders: No (ANEMIA) Adverse Reaction/Blood Tranf: No (HAS HAD BLOOD WITH NO REACTION) Family Medical History CAD Over 55 Years Old Review of Systems-General Constitutional: dizziness, fever EENTM: no symptoms reported Respiratory: no symptoms reported Cardiovascular: no symptoms reported Gastrointestinal: diarrhea, nausea Genitourinary: no symptoms reported Musculoskeletal: no symptoms reported Skin: no symptoms reported Psychiatric/Neurological: No Symptoms Reported Physical Exam-General Problems Physical Exam Vital Signs Vital Signs - First Documented 12/06/18 08:49 Temp 99.1 Pulse 105 Resp 16 B/P (MAP) 102/54 (70) Pulse Ox 94 O2 Delivery Room Air Capillary Refill : Less Than 3 SecondsLess Than 3 Seconds General Appearance: WD/WN, no apparent distress Eyes: Bilateral Eye Normal Inspection, Bilateral Eye EOMI HEENT: pharynx normal Neck: normal inspection Respiratory: chest non-tender, lungs clear, normal breath sounds, no respiratory distress, no accessory muscle use Cardiovascular: regular rate, rhythm, no edema, no murmur Gastrointestinal: normal bowel sounds, soft, no organomegaly; No guarding, No rebound; tenderness (diffuse, mild) Extremities: non-tender, normal inspection, no pedal edema 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 1. Elevated cardiac markers. Cardiology consulted and feels this is likely due to hypotension and hypoperfusion. Although capecitabine can be associated arrhythmias, I doubt it is responsible for his cardiac marker elevation. In any case, patient is done with chemotherapy cycle 1, and we will not restart it for now. 2. Hypotension from hypovolemia vs C diff colitis sepsis. Patient receiving PO vancomycin and IVF support as needed. 3. Pancytopenia. Probably related to recent chemo and acute illness. Noticed patient's MCV has been falling over the past few weeks. We will recheck iron studies/ferritin in the morning and replace iron parenterally if need be. Thank you for allowing me to participate in the care of Mr. Jose. Clinical Quality Measures DVT/VTE Risk/Contraindication: Risk Factor Score Per Nursin RFS Level Per Nursing on Admit: 4+=Very High Results Labs Labs Laboratory Tests 12/06/18 09:30: White Blood Count 3.5L, Red Blood Count 3.70L, Hemoglobin 9.1L, Hematocrit 29L, Mean Corpuscular Volume 77L, Mean Corpuscular Hemoglobin 25, Mean Corpuscular Hemoglobin Concent 32, Red Cell Distribution Width 18.3H, Platelet Count 147, Mean Platelet Volume 9.7, Neutrophils (%) (Auto) 45, Lymphocytes (%) (Auto) 42, Monocytes (%) (Auto) 10, Eosinophils (%) (Auto) 3, Basophils (%) (Auto) 0, Neutrophils # (Auto) 1.6L, Lymphocytes # (Auto) 1.5, Monocytes # (Auto) 0.4, Eosinophils # (Auto) 0.1, Basophils # (Auto) 0.0, Neutrophils % (Manual) 25, Lymphocytes % (Manual) 32, Monocytes % (Manual) 6, Eosinophils % (Manual) 1, Band Neutrophils 28, Reactive Lymphocytes 8, Hypochromasia 2+, Microcytosis 1+, Elliptocytes SLIGHT, Sodium Level 128L, Potassium Level 3.0L, Chloride Level 94L , Carbon Dioxide Level 20L, Anion Gap 14, Blood Urea Nitrogen 11, Creatinine 1.18, Estimat Glomerular Filtration Rate > 60, BUN/Creatinine Ratio 9, Glucose Level 220H, Lactic Acid Level 1.05, Calcium Level 7.5L, Corrected Calcium 8.1L, Magnesium Level 1.2L, Total Bilirubin 0.4, Aspartate Amino Transf (AST/SGOT) 14, Alanine Aminotransferase (ALT/SGPT) 10, Alkaline Phosphatase 56, Troponin T 150*H, Total Protein 5.8L, Albumin 3.2, Lipase 27 12/06/18 10:52: Urine Color YELLOW, Urine Clarity CLEAR, Urine pH 6.0, Urine Specific [place] 1.020, Urine Protein TRACEH, Urine Glucose (UA) 3+H, Urine Ketones NEGATIVE, Urine Nitrite NEGATIVE, Urine Bilirubin NEGATIVE, Urine Urobilinogen 0.2, Urine Leukocyte Esterase NEGATIVE, Urine RBC (Auto) NEGATIVE, Urine RBC NONE, Urine WBC 0-2, Urine Crystals NONE, Urine Bacteria NEGATIVE, Urine Casts NONE, Urine Mucus SMALLH, Urine Culture Indicated NO, Stool Occult Blood Immunoassay POSITIVEH 12/06/18 15:18: Troponin I 0.806*H Microbiology 12/06/18 Stool Culture, Resulted Pending 12/06/18 Rotavirus Antigen - Final, Resulted NAHOMY ORDOÑEZ MD December 06, 2018 18:10
[2018-12-06] MEDS: PANTOPRAZOLE 40 MG (PROTONIX) TAB PO SCH (20:14)
--- NOTE | 2018-12-06 20:43 | Consultation (Surgery) ---
History of Present Illness History of Present Illness Patient Consulted On(jim/time) 12/06/18 20:36 Date Seen by Provider: December 06, 2018 Time Seen by Provider: 18:00 Reason for Visit: low blood pressure History of Present Illness consult requested by Dr. Melchor for C. difficile Patient is a 68-year-old male who over the last few days is been having lower blood pressure. Patient states his blood pressure this morning systolic was in the 70s. This is improved now at this time but patient reports loss tear to having significant liquid stools. He had 10 liquid stool yesterday all liquid and of no substance. Patient tested positive for C. difficile in the stool. Patient states he had recent antibiotic late October 15 part of November. He's not having any abdominal discomfort. Patient states that his abdomen is hungry and achy. He has recent history of colon cancer with positive nodes. He is on chemotherapy. Patient has no other complaints at this time. He denies any nausea vomiting fever sweats chills shortness of breath or chest pain at this time. Allergies and Home Medications Allergies Coded Allergies: No Known Drug Allergies (Unverified , 11/15/18) Home Medications Aspirin 81 Mg Tablet.dr, 81 MG PO DAILY, (Reported) Atorvastatin Calcium 40 Mg Tablet, 40 MG PO HS, (Reported) Azelaic Acid 50 Gm Gel..gram., TP DAILY, (Reported) Capecitabine 500 Mg Tablet, PO UD, (Reported) TAKE 4 TABLETS BY MOUTH EVERY 12 HOURS FOR 14 DAYS THEN OFF FOR 7 DAYS Chlorpheniramine Maleate 4 Mg Tablet, 4 MG PO DAILY, (Reported) Chlorpheniramine Maleate 4 Mg Tablet, 4 MG PO BID PRN for ALLERGIES, (Reported) Cyanocobalamin (Vitamin B-12) 1,000 Mcg Tablet, 1,000 MCG PO HS, (Reported) Ferrous Sulfate 325 Mg Tablet, 325 MG PO TID, (Reported) Fluticasone Propionate 9.9 Ml [place].susp, 2 SPRAY NS DAILY PRN for ALLERGIES, (Reported) Glipizide 10 Mg Tablet, 10 MG PO BID, (Reported) Levothyroxine Sodium 112 Mcg Tablet, 112 MCG PO DAILY, (Reported) Metformin HCl 1,000 Mg Tablet, 1,000 MG PO BID, (Reported) Metronidazole 45 Gm Cream..g., TP HS, (Reported) Ondansetron 8 Mg Tab.rapdis, 8 MG PO Q3H PRN for NAUSEA/VOMITING-1ST LINE, (Reported) Pantoprazole Sodium 40 Mg Tablet.dr, 40 MG PO HS, (Reported) Pimecrolimus 30 Gm Cream.gm., TP DAILY PRN for PSORIASIS, (Reported) Pioglitazone HCl 30 Mg Tablet, 30 MG PO HS, (Reported) Sitagliptin Phosphate 100 Mg Tablet, 100 MG PO DAILY, (Reported) Patient Home Medication List Home Medication List Reviewed: Yes Past Ohaviqs-Xnczqh-Aqeeix Hx Patient Social History Alcohol Use: Denies Use Number of Drinks Today: BB Recreational Drug Use: No Smoking Status: Former Smoker Former Smoker, Quit: Jul 04, 1980 Type Used: Cigarettes 2nd Hand Smoke Exposure: Yes Recent Foreign Travel: No Contact w/Someone Who Travel: No Recent Infectious Disease Expo: No Recent Hopitalizations: Yes (SEP 2018-[place] COLON/SURGERY) Immunizations Up To Date Tetanus Booster (TDap): Unknown Date of Pneumonia Vaccine: Jul 26, 2016 Date of Influenza Vaccine: May 04, 2018 Seasonal Allergies Seasonal Allergies: No Surgeries History of Surgeries: Yes (BLADDER SURGERY-CANCER, COLON RESECTION ) Surgeries: Bowel Surgery, Cardiac, Coronary Stent Respiratory History of Respiratory Disorde: Yes Respiratory Disorders: Pulmonary Embolism Cardiovascular History of Cardiac Disorders: Yes (stents in 1996, ANGIOPLASTY 06/2018) Cardiac Disorders: Coronary Artery Disease, High Cholesterol, Hypertension Neurological History of Neurological Disord: No Reproductive System Sexually Transmitted Disease: No HIV/AIDS: No Genitourinary History of Genitourinary Disor: Yes (bladder cancer in past) Genitourinary Disorders: Bladder Infection Gastrointestinal History of Gastrointestinal Di: Yes (COLON CA) Musculoskeletal History of Musculoskeletal Dis: No Endocrine History of Endocrine Disorders: Yes Endocrine Disorders: Diabetes, Non-Insulin dep HEENT History of HEENT Disorders: Yes (GLASSES) HEENT Disorders: Cataract Loss of Vision: Bilateral Hearing Impairment: Denies Cancer History of Cancer: Yes Cancer: Bladder, Colon Psychosocial History of Psychiatric Problem: No Integumentary History of Skin or Integumenta: Yes Skin/Integumentary Disorders: Psoriasis Blood Transfusions 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) Adverse Reaction to a Blood Tr: No (HAS HAD BLOOD WITH NO REACTION) Family Medical History Significant Family History: CAD Over 55 Years Old Review of Systems-General Constitutional: see HPI EENTM: no symptoms reported Respiratory: no symptoms reported Cardiovascular: no symptoms reported Gastrointestinal: see HPI Genitourinary: no symptoms reported Musculoskeletal: no symptoms reported Skin: no symptoms reported Psychiatric/Neurological: No Symptoms Reported Physical Exam-General Problems Physical Exam Vital Signs Vital Signs - First Documented 12/06/18 08:49 Temp 99.1 Pulse 105 Resp 16 B/P (MAP) 102/54 (70) Pulse Ox 94 O2 Delivery Room Air Capillary Refill : Less Than 3 SecondsLess Than 3 Seconds General Appearance: no apparent distress HEENT: PERRL/EOMI, normal ENT inspection Neck: full range of motion, supple, normal inspection Respiratory: chest non-tender, no respiratory distress, no accessory muscle use Cardiovascular: regular rate, rhythm Gastrointestinal: non tender, soft; No distended, No guarding, No rebound, No tenderness Rectal: deferred Back: no CVA tenderness Extremities: non-tender, normal inspection 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, no motor/sensory deficits, alert, normal mood/affect, oriented x 3 Skin: normal color, warm/dry Lymphatic: no adenopathy Data Review Labs Laboratory Tests 12/06/18 09:30: White Blood Count 3.5L, Red Blood Count 3.70L, Hemoglobin 9.1L, Hematocrit 29L, Mean Corpuscular Volume 77L, Mean Corpuscular Hemoglobin 25, Mean Corpuscular Hemoglobin Concent 32, Red Cell Distribution Width 18.3H, Platelet Count 147, Mean Platelet Volume 9.7, Neutrophils (%) (Auto) 45, Lymphocytes (%) (Auto) 42, Monocytes (%) (Auto) 10, Eosinophils (%) (Auto) 3, Basophils (%) (Auto) 0, Neutrophils # (Auto) 1.6L, Lymphocytes # (Auto) 1.5, Monocytes # (Auto) 0.4, Eosinophils # (Auto) 0.1, Basophils # (Auto) 0.0, Neutrophils % (Manual) 25, Lymphocytes % (Manual) 32, Monocytes % (Manual) 6, Eosinophils % (Manual) 1, Band Neutrophils 28, Reactive Lymphocytes 8, Hypochromasia 2+, Microcytosis 1+, Elliptocytes SLIGHT, Sodium Level 128L, Potassium Level 3.0L, Chloride Level 94L , Carbon Dioxide Level 20L, Anion Gap 14, Blood Urea Nitrogen 11, Creatinine 1.18, Estimat Glomerular Filtration Rate > 60, BUN/Creatinine Ratio 9, Glucose Level 220H, Lactic Acid Level 1.05, Calcium Level 7.5L, Corrected Calcium 8.1L, Magnesium Level 1.2L, Total Bilirubin 0.4, Aspartate Amino Transf (AST/SGOT) 14, Alanine Aminotransferase (ALT/SGPT) 10, Alkaline Phosphatase 56, Troponin T 150*H, Total Protein 5.8L, Albumin 3.2, Lipase 27 12/06/18 10:52: Urine Color YELLOW, Urine Clarity CLEAR, Urine pH 6.0, Urine Specific [place] 1.020, Urine Protein TRACEH, Urine Glucose (UA) 3+H, Urine Ketones NEGATIVE, Urine Nitrite NEGATIVE, Urine Bilirubin NEGATIVE, Urine Urobilinogen 0.2, Urine Leukocyte Esterase NEGATIVE, Urine RBC (Auto) NEGATIVE, Urine RBC NONE, Urine WB C 0-2, Urine Crystals NONE, Urine Bacteria NEGATIVE, Urine Casts NONE, Urine Mucus SMALLH, Urine Culture Indicated NO, Stool Occult Blood Immunoassay POSITIVEH 12/06/18 15:18: Troponin I 0.806*H Microbiology 12/06/18 Stool Culture - Preliminary, Resulted 12/06/18 Rotavirus Antigen - Final, Resulted Assessment/Plan Assessment/Plan Assessment/Plan C. difficile diarrhea Hypertension Colon cancer status post right colon resection Anemia patient found to be C. difficile positive. Patient on oral vancomycin. Patient not having any abdominal pain at this time, but having significant diarrhea. Continue medical management. No surgical intervention at this time. Continue to follow his lab work for anemia. Will follow. Clinical Quality Measures DVT/VTE Risk/Contraindication: Risk Factor Score Per Nursin RFS Level Per Nursing on Admit: 4+=Very High SRIKANTH AGUILAR DO December 06, 2018 20:43
[2018-12-07 04:00] VITALS: BP 160/80
--- NOTE | 2018-12-07 04:00 | NUR ---
PT PORT A CATH ACCESSED AT THIS TIME. FLUSHED 10CC NS, DRAWS BLOOD. PT TOLERATED WELL.
[2018-12-07 04:25] LABS: MEAN PLATELET VOLUME 9.5 FL (7.4-10.4)
[2018-12-07 04:30] VITALS: BP 160/80
[2018-12-07] MEDS: NS IV 1000 ML 1,000 ML IV SCH ×2 (04:40→16:55)
[2018-12-07 04:52] LABS: ALANINE AMINOTRANSFERASE 15 U/L (0-55); ALBUMIN 2.9 GM/DL (3.2-4.5); ALKALINE PHOSPHATASE 54 U/L (40-136); BILIRUBIN,TOTAL 0.3 MG/DL (0.1-1.0); BUN/CREATININE RATIO 8; CALCIUM 7.7 MG/DL (8.5-10.1); CARBON DIOXIDE 18 MMOL/L (21-32); CHLORIDE 103 MMOL/L (98-107); CREATININE SERUM 0.87 MG/DL (0.60-1.30); GFR ESTIMATED > 60; GLUCOSE 151 MG/DL (70-105); MAGNESIUM 1.3 MG/DL (1.8-2.4); POTASSIUM 3.1 MMOL/L (3.6-5.0); SODIUM 131 MMOL/L (135-145); TOTAL PROTEIN 5.3 GM/DL (6.4-8.2)
[2018-12-07] MEDS: LEVOTHYROXINE 112 MCG (LEVOTHROID) TAB PO SCH (06:06)
[2018-12-07] MEDS: VANCOMYCIN ORAL 250 MG/5 ML 120 ML PO SCH ×8 (06:07→23:12)
[2018-12-07] MEDS ORDERED: POTASSIUM CL 10MEQ/50ML IVPB 200 ML IV ONE (06:12)
[2018-12-07] MEDS ORDERED: MAGNESIUM 1 GM/100 ML IVPB 200 ML IV ONE (06:12)
[2018-12-07] MEDS: MAGNESIUM 1 GM/100 ML IVPB 100 ML IV SCH ×2 (06:27→07:16)
[2018-12-07] MEDS: POTASSIUM CL 10MEQ/50ML IVPB 50 ML IV SCH ×3 (06:27→07:53)
[2018-12-07 07:00] VITALS: BP 149/78
--- NOTE | 2018-12-07 07:50 | Cardiology Progress Note ---
Subjective Date Seen by Provider: December 07, 2018 Time Seen by Provider: 07:48 Subjective/Events-last exam patient is laying down in bed, reporting improvement in his diarrhea. Denied any chest pain. No dizziness. Blood pressure is better. Review of Systems General: No Chills, No Night Sweats; Fatigue; No Malaise, No Appetite, No Other HEENT: No Head Aches, No Visual Changes, No Eye Pain, No Ear Pain, No Dysphasia, No Sinus Congestion, No Post Nasal Drip, No Sore Throat, No Other Pulmonary: No Dyspnea, No Cough, No Pleuritic Chest Pain, No Other Cardiovascular: No: Chest Pain, Palpitations, Orthopnea, Paroxysmal Noc. Dyspnea, Edema, Lt Headedness, Other Focused Exam Lactate Level 12/06/18 09:30: Lactic Acid Level 1.05 Objective-Cardiology Exam Last Set of Vital Signs Vital Signs 12/07/18 04:30 Temp 97.4 Pulse 74 Resp 18 B/P (MAP) 160/80 (106) Pulse Ox 99 O2 Delivery Room Air Capillary Refill : Less Than 3 SecondsLess Than 3 Seconds I&O Intake and Output 12/07/18 00:00 Intake Total 1950 ml Balance 1950 ml Intake Oral 0 ml IV Total 1950 ml # Voids 2 # Bowel Movements 1 Daily Weight Change Yes, 2-13 lbs General: Alert, Oriented X3, Cooperative HEENT: Atraumatic, PERRLA Neck: Supple, No JVD, No Thyromegaly Lungs: Clear to Auscultation, Normal Air Movement Heart: Regular Rate, Normal S1, Normal S2, No Murmurs Abdomen: Normal Bowel Sounds, Soft, No Tenderness, No Hepatosplenomegaly, No Masses Extremities: No Clubbing, No Cyanosis, No Edema, Normal Pulses, No Tenderness/Swelling Skin: No Rashes, No Breakdown, No Significant Lesion Neuro: Normal Gait, Normal Speech, Strength at 5/5 X4 Ext, Normal Tone, Sensation Intact Psych/Mental Status: Mental Status NL, Mood NL Results Lab Laboratory Tests 12/06/18 09:30 12/07/18 04:15 A/P-Cardiology Admission Diagnosis Type II myocardial infarction C. difficile colitis Syncope Diarrhea Assessment/Plan C. difficile colitis, started on oral vancomycin, reporting some improvement. Continue to monitor. Nausea and vomiting, diarrhea, secondary to colitis. Continue to monitor, continue IV fluid Hypokalemia, hypomagnesemia, being replaced Syncope, episode of dizziness and lightheadedness secondary to hypotension and hypovolemia. Continue to monitor Type II myocardial infarction, known to have history of coronary artery disease as described below, EKG showed subtle changes in V2, no reciprocal changes. Troponin is elevated and continue to rise. Will need to consider cardiac catheterization once patient is able to lay down for few hours. He is not having any active chest pain at this time. Anemia, continue to monitor H&H. Coronary artery disease, history of multiple stents in the past, had 2 stents in the , had a cardiac catheterization after having myocardial infarction in June 2018 which showed severe instent restenosis in the proximal and mid LAD underwent balloon angioplasty using 2.5 x 15 mm balloon with a good results, moderate to severe disease at the distal LAD that was treated medically due to the size of the artery. Had severe proximal circumflex artery stenosis with successful balloon angioplasty with excellent results. Unable to advance the stent due to the angle of the takeoff of the circumflex artery. 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 Continue to monitor Hypotension, labile blood pressure, keep him off blood pressure medication for now and monitor History of bladder cancer. Currently in remission Hypothyroidism, followed and managed by primary care physician Strong family history of heart disease with multiple family members with heart attack and bypass surgeries Clinical Quality Measures DVT/VTE Risk/Contraindication: Risk Factor Score Per Nursin RFS Level Per Nursing on Admit: 4+=Very High TAVON SUGGS MD December 07, 2018 07:50
[2018-12-07] MEDS: ASPIRIN E.C. 81 MG (ECOTRIN) TAB PO SCH (08:22)
[2018-12-07] MEDS: ENOXAPARIN 40 MG/0.4 ML (LOVENOX) SYR SQ SCH (08:22)
[2018-12-07] MEDS ORDERED: ASPIRIN 81 MG PO SCH (09:00)
--- NOTE | 2018-12-07 12:12 | Progress Note-Hospitalist ---
Progress Note Progress Notes/Assess & Plan Date Seen 12/07/18 Time Seen by Provider: 12:09 Assessment & Plan The patient reports that he is feeling reasonably well today. He has not had a bowel movement since 10 13 this morning. He will be transferred to the [facility] floor. There is been no chest pain or shortness of breath. He reports that Dr. Melchor will plan to do an angiogram if his diarrhea is controlled. He will be placed on a clear liquid diet. Physical exam: Color is good. Lungs are clear to auscultation. CV is regular. Abdomen is nontender. Bowel sounds are hypoactive. Impression: Carcinoma of the colon resected October 09 with lymph node involvement. 2.adjunctive chemotherapy. 3.ASHD with apparent acute non-STEMI. 4.C. difficile diarrhea. Plan: Transfer to [facility]. Focused Exam Lactate Level 12/06/18 09:30: Lactic Acid Level 1.05 MARIAMA DIA MD December 07, 2018 12:12
--- NOTE | 2018-12-07 12:30 | NUR ---
Initial visit with pt and his , Antoinette. Pt is Yarsanism and demonstrates dynamic trust in God. He has been taking chemo for colon cancer and said he acquired C-Diff following a round of antibiotics. Pt states his family, sabianism family, and cancer support group are all of emotional and spiritual support to him. He requested prayer at the close of our visit.
[2018-12-07 12:40] VITALS: BP 123/73
--- NOTE | 2018-12-07 12:40 | NUR ---
PT TO ROOM 428 VIA WHEELCHAIR, REPORT RECEIVED FROM BERENICE AMEZCUA. PT ACCOMPANIED BY STAFF AND . PT BELONGINGS TRANSFERRED WITH PT. THIS RN AGREES WITH PREVIOUS SHIFT ICU PHYSICAL ASSESSMENT. THIS RN WILL ASSUME PT CARE AT THIS TIME.
--- NOTE | 2018-12-07 12:44 | NUR ---
1240 PT TO ROOM 428 VIA WC ACCOMPANIED BY AND THIS RN, ALL PERSONAL BELONGINGS SENT DOWN. REPORT TO Marianna RODRÍGUEZ RN.
[2018-12-07 16:00] VITALS: BP 117/66
--- NOTE | 2018-12-07 16:04 | Progress Note ---
Subjective Date Seen by a Provider: December 07, 2018 Time Seen by a Provider: 09:15 Subjective/Events-last exam patient states he's feeling better. He is having less diarrhea. His blood pressure has improved no longer being hypotensive. His troponin has increased. Patient feeling hungry. He denies any nausea vomiting fever sweats chills shortness of breath or chest pain. Hemoglobin stable Focused Exam Lactate Level 12/06/18 09:30: Lactic Acid Level 1.05 Objective Exam Vital Signs Date Time Temp Pulse Resp B/P (MAP) Pulse Ox O2 Delivery O2 Flow Rate FiO2 12/07/18 13:12 99 12/07/18 12:40 98.9 90 18 123/73 (90) 99 Room Air 12/07/18 12:00 100 Room Air 12/07/18 08:39 97.2 12/07/18 08:00 100 Room Air 12/07/18 07:11 79 12/07/18 07:00 78 149/78 (101) Room Air 12/07/18 04:30 97.4 74 18 160/80 (106) 99 Room Air 12/07/18 04:00 77 28 160/80 (106) Room Air 12/07/18 04:00 100 Room Air 12/07/18 01:00 81 12/07/18 00:00 100 Room Air 12/06/18 23:59 97.6 90 16 154/74 (100) 100 Room Air 12/06/18 20:01 99.1 12/06/18 20:00 100 Room Air 12/06/18 20:00 83 11 156/72 (100) 97 Room Air 12/06/18 19:00 79 12/06/18 19:00 79 13 147/78 (101) 100 Room Air 12/06/18 17:00 98.3 12/06/18 16:00 100 Room Air 12/06/18 16:00 62 17 149/80 (103) 100 Room Air 12/06/18 16:00 97.6 I & O 12/07/18 07:00 Intake Total 1950 ml Balance 1950 ml Capillary Refill : Less Than 3 SecondsLess Than 3 Seconds General Appearance: No Apparent Distress, WD/WN HEENT: Normal ENT Inspection Neck: Normal Inspection Respiratory: Chest Non Tender, Lungs Clear, Normal Breath Sounds, No Respiratory Distress Cardiovascular: Regular Rate, Rhythm, No Edema, No Gallop, No JVD, No Murmur, Tachycardia Gastrointestinal: non tender, soft, no organomegaly; No distended, No guarding, No rebound, No tenderness Extremity: Normal Capillary Refill, Normal Inspection, Normal Range of Motion, Non Tender, No Calf Tenderness, No Pedal Edema Neurologic/Psychiatric: Alert, Oriented x3, No Motor/Sensory Deficits Skin: Warm/Dry Lymphatic: No Adenopathy Results Lab Laboratory Tests 12/06/18 21:00: Troponin I 1.967*H 12/07/18 04:15: Troponin I 4.355*H, White Blood Count 5.0, Red Blood Count 3.61L, Hemoglobin 9.0L, Hematocrit 27L, Mean Corpuscular Volume 75L, Mean Corpuscular Hemoglobin 25, Mean Corpuscular Hemoglobin Concent 33, Red Cell Distribution Width 19.0H, Platelet Count 158, Mean Platelet Volume 9.5, Sodium Level 131L, Potassium Level 3.1L, Chloride Level 103, Carbon Dioxide Level 18L, Anion Gap 10, Blood Urea Nitrogen 7, Creatinine 0.87, Estimat Glomerular Filtration Rate > 60, BUN/Crea tinine Ratio 8, Glucose Level 151H, Calcium Level 7.7L, Corrected Calcium 8.6, Magnesium Level 1.3L, Total Bilirubin 0.3, Aspartate Amino Transf (AST/SGOT) 31, Alanine Aminotransferase (ALT/SGPT) 15, Alkaline Phosphatase 54, Total Protein 5.3L, Albumin 2.9L Microbiology 12/06/18 Blood Culture - Preliminary, Resulted No growth 12/06/18 Stool Culture - Preliminary, Resulted 12/06/18 Rotavirus Antigen - Final, Resulted Assessment/Plan Assessment/Plan Assessment/Plan C. difficile diarrhea Hypertension type II myocardial infarction Colon cancer status post right colon resection Anemia patient found to be C. difficile positive. Patient on oral vancomycin. cardiology considering heart catheterization. Patient not having any abdominal pain at this time. diarrhea improving Continue medical management. No surgical intervention at this time. Continue to follow his lab work for anemia. I am okay with starting diet from surgical standpoint. Will follow. Clinical Quality Measures DVT/VTE Risk/Contraindication: Risk Factor Score Per Nursin RFS Level Per Nursing on Admit: 4+=Very High SRIKANTH AGUILAR DO December 07, 2018 16:04
--- NOTE | 2018-12-07 17:49 | Progress Note-Standard ---
Standard Progress Note Progress Notes/Assess & Plan Date Seen by a Provider: December 07, 2018 Time Seen by a Provider: 17:44 Progress/Assessment & Plan 68 yo male with colon cancer, currently on adjuvant chemotherapy was admitted with hypotension, C diff colitis and NSTEMI. Diarrhea has improved over the last day. He has no pain but feels cold all the time. Denies any dizziness, headaches or vision changes. 1. NSTEMI due to hypoperfusion. Although capecitabine can be associated arrhythmias, I doubt it is responsible for his cardiac injury. Patient completed chemotherapy cycle 1 on 12/05/18. 2. Hypotension from hypovolemia vs C diff colitis sepsis. Patient receiving PO vancomycin and IVF support as needed. 3. Pancytopenia. Probably related to recent chemo and acute illness. Noticed patient's MCV has been falling over the past few weeks. Iron studies/ferritin are pending. If studies are consistent with iron deficiency, would infuse iron. Focused Exam Lactate Level 12/06/18 09:30: Lactic Acid Level 1.05 NAHOMY ORDOÑEZ MD December 07, 2018 17:49
[2018-12-07 20:00] VITALS: BP 113/63
[2018-12-07] MEDS: CHOLESTYRAMINE 4 GM (QUESTRAN LITE, PREVALITE) PKT PO SCH (20:31)
[2018-12-07] MEDS: PANTOPRAZOLE 40 MG (PROTONIX) TAB PO SCH (20:31)
[2018-12-08] VITALS: BP 102/62
[2018-12-08 04:00] VITALS: BP 106/63
[2018-12-08] MEDS: NS IV 1000 ML 1,000 ML IV SCH ×2 (04:35→17:48)
[2018-12-08] MEDS: LEVOTHYROXINE 112 MCG (LEVOTHROID) TAB PO SCH (06:20)
[2018-12-08] MEDS: VANCOMYCIN ORAL 250 MG/5 ML 120 ML PO SCH ×8 (06:20→23:38)
[2018-12-08 08:00] VITALS: BP 123/77
[2018-12-08] MEDS: ASPIRIN E.C. 81 MG (ECOTRIN) TAB PO SCH (09:09)
[2018-12-08] MEDS: ENOXAPARIN 40 MG/0.4 ML (LOVENOX) SYR SQ SCH (09:10)
[2018-12-08] MEDS: CHOLESTYRAMINE 4 GM (QUESTRAN LITE, PREVALITE) PKT PO SCH ×4 (09:10→21:03)
--- NOTE | 2018-12-08 09:29 | Cardiology Progress Note ---
Subjective Date Seen by Provider: December 08, 2018 Time Seen by Provider: 09:28 Subjective/Events-last exam patient is laying down in bed, feeling better, still having diarrhea Review of Systems General: No Chills, No Night Sweats, No Fatigue, No Malaise, No Appetite, No Other HEENT: No Head Aches, No Visual Changes, No Eye Pain, No Ear Pain, No Dysphasia, No Sinus Congestion, No Post Nasal Drip, No Sore Throat, No Other Pulmonary: No Dyspnea, No Cough, No Pleuritic Chest Pain, No Other Cardiovascular: No: Chest Pain, Palpitations, Orthopnea, Paroxysmal Noc. Dyspnea, Edema, Lt Headedness, Other Focused Exam Lactate Level 12/06/18 09:30: Lactic Acid Level 1.05 Objective-Cardiology Exam Last Set of Vital Signs Vital Signs 12/08/18 12/08/18 04:00 06:53 Temp 97.9 Pulse 84 Resp 18 B/P (MAP) 106/63 (77) Pulse Ox 97 O2 Delivery Room Air Capillary Refill : Less Than 3 SecondsLess Than 3 Seconds I&O Intake and Output 12/08/18 00:00 Intake Total 1560 ml Balance 1560 ml Intake Oral 1210 ml IV Total 350 ml Tube Feeding 0 ml # Voids 9 # Bowel Movements 8 General: Alert, Oriented X3, Cooperative HEENT: Atraumatic, PERRLA Neck: Supple, No JVD, No Thyromegaly Lungs: Clear to Auscultation, Normal Air Movement Heart: Regular Rate, Normal S1, Normal S2, No Murmurs Abdomen: Normal Bowel Sounds, Soft, No Tenderness, No Hepatosplenomegaly, No Masses Extremities: No Clubbing, No Cyanosis, No Edema, Normal Pulses, No Tenderness/Swelling Skin: No Rashes, No Breakdown, No Significant Lesion Neuro: Normal Gait, Normal Speech, Strength at 5/5 X4 Ext, Normal Tone, Sensation Intact Psych/Mental Status: Mental Status NL, Mood NL A/P-Cardiology Admission Diagnosis Type II myocardial infarction C. difficile colitis Syncope Diarrhea Assessment/Plan C. difficile colitis, started on oral vancomycin, reporting some improvement, still having diarrhea Nausea and vomiting, diarrhea, secondary to colitis. Continue to monitor, continue IV fluid Hypokalemia, hypomagnesemia, being replaced Syncope, episode of dizziness and lightheadedness secondary to hypotension and hypovolemia. Continue to monitor Type II myocardial infarction, known to have history of coronary artery disease as described below, EKG showed subtle changes in V2, no reciprocal changes. Troponin is elevated and continue to rise. Will need to consider cardiac catheterization once patient is able to lay down for few hours. He is not having any active chest pain at this time. Anemia, continue to monitor H&H. Coronary artery disease, history of multiple stents in the past, had 2 stents in the , had a cardiac catheterization after having myocardial infarction in June 2018 which showed severe instent restenosis in the proximal and mid LAD underwent balloon angioplasty using 2.5 x 15 mm balloon with a good results, moderate to severe disease at the distal LAD that was treated medically due to the size of the artery. Had severe proximal circumflex artery stenosis with successful balloon angioplasty with excellent results. Unable to advance the stent due to the angle of the takeoff of the circumflex artery. 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 Continue to monitor Hypotension, labile blood pressure, keep him off blood pressure medication for now and monitor History of bladder cancer. Currently in remission Hypothyroidism, followed and managed by primary care physician Strong family history of heart disease with multiple family members with heart attack and bypass surgeries Clinical Quality Measures DVT/VTE Risk/Contraindication: Risk Factor Score Per Nursin RFS Level Per Nursing on Admit: 4+=Very High TAVON SUGGS MD December 08, 2018 09:29
[2018-12-08 12:00] VITALS: BP 130/76
[2018-12-08] MEDS: LACTOBACILLUS ACIDOPHILUS (PROBIOTIC) CAPSULE PO SCH ×2 (12:20→17:46)
--- NOTE | 2018-12-08 12:25 | Progress Note-Hospitalist ---
Subjective HPI/CC On Admission Date Seen by Provider: December 08, 2018 Time Seen by Provider: 11:30 The patient was a 68-year-old white male who had overnight it here for IV fluids and was dismissed yesterday. He reports that during the night he began to have watery diarrhea. Prior to that he had had loose stools. He had taken an antibiotic which he cannot name at this time, the end of October. He has also been taking an oral chemotherapy agent. This is for node positive colon cancer. He has also had low blood pressures at times. This is noted over the past several days. During those moments he is not able to stand up safely. He completed his course of chemotherapy yesterday and will be due to start again next Monday. His stool tested positive for C. difficile today. Subjective/Events-last exam The patient reports diarrhea is slowing somewhat although he still having a lot of postprandial urgency with very small volume last stool. There is been no associated pain he's had no chills fever or cramping. Focused Exam Lactate Level 12/06/18 09:30: Lactic Acid Level 1.05 Objective Exam Vital Signs Vital Signs Date Time Temp Pulse Resp B/P (MAP) Pulse Ox O2 Delivery O2 Flow Rate FiO2 12/08/18 08:00 97.2 89 20 123/77 (92) 98 Room Air Capillary Refill : Less Than 3 SecondsLess Than 3 Seconds General Appearance: No Apparent Distress, WD/WN HEENT: Normal ENT Inspection Neck: Normal Inspection Respiratory: Chest Non Tender, Lungs Clear, Normal Breath Sounds, No Respiratory Distress Cardiovascular: Regular Rate, Rhythm, No Edema, No Gallop, No JVD, No Murmur, Tachycardia Gastrointestinal: Normal Bowel Sounds, No Organomegaly, No Pulsatile Mass, Non Tender, Soft Back: Normal Inspection, No CVA Tenderness, No Vertebral Tenderness Extremity: Normal Capillary Refill, Normal Inspection, Normal Range of Motion, Non Tender, No Calf Tenderness, No Pedal Edema Neurologic/Psychiatric: Alert, Oriented x3, No Motor/Sensory Deficits Skin: Warm/Dry Lymphatic: No Adenopathy Results/Procedures Lab Patient resulted labs reviewed. Assessment/Plan Assessment and Plan Assess & Plan/Chief Complaint 1. C. difficile colitis likely caused by recent antibiotic therapy for URI type symptoms. He does appear to be responding I did advocate that we continue Questran for another day or 2 and the patient is agreeable to this as it may hasten the resolution of his diarrhea which is still causing some small volume incontinence. Most importantly we discussed the fact that his inappropriate use of antibiotics I believe he had left over at home or the cause of his symptoms and that antibiotics should be used judiciously and only for suspected significant bacterial infection not likely virus that he had for which antibiotics are ineffective. He voices understanding. Continue oral vancomycin. 2. Colon cancer status post first round of chemotherapy. Clinical Quality Measures DVT/VTE Risk/Contraindication: Risk Factor Score Per Nursin RFS Level Per Nursing on Admit: 4+=Very High MILI BREWER MD December 08, 2018 12:25
--- NOTE | 2018-12-08 15:06 | Progress Note ---
Subjective Date Seen by a Provider: December 08, 2018 Time Seen by a Provider: 10:10 Subjective/Events-last exam patient states is doing okay. He has no abdominal pain. No nausea or vomiting. Diarrhea is slightly slowed still. He states when he eats something and does seem to go right through him. He does not like taking Questran. She has no other complaints at this time. He denies any nausea vomiting fever sweats chills shortness of breath or chest pain. Focused Exam Lactate Level 12/06/18 09:30: Lactic Acid Level 1.05 Objective Exam Vital Signs Date Time Temp Pulse Resp B/P (MAP) Pulse Ox O2 Delivery O2 Flow Rate FiO2 12/08/18 13:00 78 12/08/18 12:00 97.9 80 20 130/76 (94) 98 Room Air 12/08/18 08:00 97.2 89 20 123/77 (92) 98 Room Air 12/08/18 08:00 98 Room Air 12/08/18 06:53 84 12/08/18 04:00 97.9 81 18 106/63 (77) 97 Room Air 12/08/18 01:00 88 12/08/18 00:00 98.2 82 16 102/62 (75) 98 Room Air 12/07/18 20:30 Room Air 12/07/18 20:00 98.8 82 18 113/63 (80) 100 Room Air 12/07/18 19:00 88 12/07/18 16:00 97.8 83 18 117/66 (83) 99 Room Air I & O 12/08/18 07:00 Intake Total 2910 ml Balance 2910 ml Capillary Refill : Less Than 3 SecondsLess Than 3 Seconds General Appearance: No Apparent Distress, WD/WN HEENT: Normal ENT Inspection Neck: Normal Inspection Respiratory: Chest Non Tender, Lungs Clear, Normal Breath Sounds, No Respiratory Distress Cardiovascular: Regular Rate, Rhythm, No Edema, No Gallop, No JVD, No Murmur, Tachycardia Gastrointestinal: non tender, soft, no organomegaly; No distended, No guarding, No rebound, No tenderness Extremity: Normal Capillary Refill, Normal Inspection, Normal Range of Motion, Non Tender, No Calf Tenderness, No Pedal Edema Neurologic/Psychiatric: Alert, Oriented x3, No Motor/Sensory Deficits Skin: Warm/Dry Lymphatic: No Adenopathy Results Lab Microbiology 12/06/18 Blood Culture - Preliminary, Resulted No growth 12/06/18 Stool Culture - Preliminary, Resulted Presumptive Usual Mary Ellen Culture In Progress 12/06/18 Rotavirus Antigen - Final, Resulted Assessment/Plan Assessment/Plan Assessment/Plan C. difficile diarrhea Hypertension type II myocardial infarction Colon cancer status post right colon resection Anemia patient found to be C. difficile positive. Patient on oral vancomycin. cardiology considering heart catheterization. Patient not having any abdominal pain at this time. diarrhea improving Continue medical management. No surgical intervention at this time. will add probiotic advance diet as tolerates Clinical Quality Measures DVT/VTE Risk/Contraindication: Risk Factor Score Per Nursin RFS Level Per Nursing on Admit: 4+=Very High SRIKANTH AGUILAR DO December 08, 2018 15:06
[2018-12-08 16:00] VITALS: BP 175/85
[2018-12-08 20:31] VITALS: BP 120/68
[2018-12-08] MEDS: PANTOPRAZOLE 40 MG (PROTONIX) TAB PO SCH (21:03)
[2018-12-09] VITALS: BP 104/65
[2018-12-09 04:12] LABS: HEMOGLOBIN 8.1 G/DL (13.3-17.7); MEAN PLATELET VOLUME 8.8 FL (7.4-10.4); RED CELL DISTRIBUTION WIDTH 19.3 % (10.0-14.5); WHITE BLOOD COUNT 3.6 10^3/uL (4.3-11.0)
[2018-12-09 04:31] LABS: ALANINE AMINOTRANSFERASE 10 U/L (0-55); ALBUMIN 2.7 GM/DL (3.2-4.5); ALKALINE PHOSPHATASE 46 U/L (40-136); BILIRUBIN,TOTAL 0.2 MG/DL (0.1-1.0); BUN/CREATININE RATIO 4; CALCIUM 7.5 MG/DL (8.5-10.1); CARBON DIOXIDE 20 MMOL/L (21-32); CHLORIDE 104 MMOL/L (98-107); CREATININE SERUM 0.85 MG/DL (0.60-1.30); GFR ESTIMATED > 60; GLUCOSE 170 MG/DL (70-105); POTASSIUM 2.7 MMOL/L (3.6-5.0); SODIUM 133 MMOL/L (135-145); TOTAL PROTEIN 4.9 GM/DL (6.4-8.2)
[2018-12-09 04:46] VITALS: BP 100/63
[2018-12-09] MEDS: LEVOTHYROXINE 112 MCG (LEVOTHROID) TAB PO SCH (06:37)
[2018-12-09] MEDS: VANCOMYCIN ORAL 250 MG/5 ML 120 ML PO SCH ×8 (06:37→23:16)
[2018-12-09] MEDS: LACTOBACILLUS ACIDOPHILUS (PROBIOTIC) CAPSULE PO SCH ×3 (06:37→17:04)
[2018-12-09 08:00] VITALS: BP 103/64
[2018-12-09] MEDS: NS IV 1000 ML 1,000 ML IV SCH ×4 (08:21→22:40)
[2018-12-09] MEDS: ENOXAPARIN 40 MG/0.4 ML (LOVENOX) SYR SQ SCH (08:21)
[2018-12-09] MEDS: ASPIRIN E.C. 81 MG (ECOTRIN) TAB PO SCH (08:21)
[2018-12-09] MEDS: MAGNESIUM 1 GM/100 ML IVPB 100 ML IV SCH ×2 (08:26→09:23)
[2018-12-09] MEDS: POTASSIUM CL 10MEQ/50ML IVPB 50 ML IV SCH ×4 (08:26→11:37)
[2018-12-09] MEDS: CHOLESTYRAMINE 4 GM (QUESTRAN LITE, PREVALITE) PKT PO SCH ×2 (09:30→20:42)
--- NOTE | 2018-12-09 10:25 | NUR ---
ORDERS REC'D FOR HEART CATH. VERIFIED WITH DR. AMADOR TODAY. CONSENT SIGNED, NASAL SWABS DONE, IVF INCREASED TO 100CC/HR. HEART CATH SCHEDULED VIA NURSING AGENCY APPOINTMENTS SUPERVISOR.
[2018-12-09] MEDS ORDERED: NS IV 1000 ML 0 ML ONE (10:49)
[2018-12-09] MEDS ORDERED: MIDAZOLAM 5 MG/5 ML (VERSED) VIAL ONE (10:49)
[2018-12-09] MEDS ORDERED: LIDOCAINE 1% INJ 20 ML 20 ML VIAL ONE (10:49)
[2018-12-09] MEDS ORDERED: fentaNYL INJECTION 100 MCG/2 ML AMP ONE (10:49)
[2018-12-09] MEDS ORDERED: HEParin (CATH LAB) 1,000 ML IV ONE (10:50)
--- NOTE | 2018-12-09 11:08 | NUR ---
DR. SUGGS HERE TO SEE PT. CATH CANCELLED BY R/T PT CONTINUES WITH DIARRHEA. NURSING MARINE FIREMAN NOTIFIED.
[2018-12-09 12:00] VITALS: BP 131/80
[2018-12-09] MEDS ORDERED: LINAGLIPTIN (TRADJENTA) 5 MG TABLET PO SCH (12:00)
--- NOTE | 2018-12-09 12:20 | Cardiology Progress Note ---
Subjective Date Seen by Provider: December 09, 2018 Time Seen by Provider: 12:19 Subjective/Events-last exam patient is laying down in bed, still having diarrhea, was incontinent last night, reporting some improvement today Review of Systems General: No Chills, No Night Sweats, No Fatigue, No Malaise, No Appetite, No Other HEENT: No Head Aches, No Visual Changes, No Eye Pain, No Ear Pain, No Dysphasia, No Sinus Congestion, No Post Nasal Drip, No Sore Throat, No Other Pulmonary: No Dyspnea, No Cough, No Pleuritic Chest Pain, No Other Cardiovascular: No: Chest Pain, Palpitations, Orthopnea, Paroxysmal Noc. Dyspnea, Edema, Lt Headedness, Other Objective-Cardiology Exam Last Set of Vital Signs Vital Signs 12/09/18 08:00 Temp 98.5 Pulse 77 Resp 20 B/P (MAP) 103/64 (77) Pulse Ox 98 O2 Delivery Room Air Capillary Refill : Less Than 3 SecondsLess Than 3 Seconds I&O Intake and Output 12/09/18 00:00 Intake Total 3730 ml Balance 3730 ml Intake Oral 1730 ml IV Total 2000 ml # Voids 13 # Bowel Movements 4 General: Alert, Oriented X3, Cooperative HEENT: Atraumatic, PERRLA Neck: Supple, No JVD, No Thyromegaly Lungs: Clear to Auscultation, Normal Air Movement Heart: Regular Rate, Normal S1, Normal S2, No Murmurs Abdomen: Normal Bowel Sounds, Soft, No Tenderness, No Hepatosplenomegaly, No Masses Extremities: No Clubbing, No Cyanosis, No Edema, Normal Pulses, No Tenderness/Swelling Skin: No Rashes, No Breakdown, No Significant Lesion Neuro: Normal Gait, Normal Speech, Strength at 5/5 X4 Ext, Normal Tone, Sensation Intact Psych/Mental Status: Mental Status NL, Mood NL Results Lab Laboratory Tests 12/09/18 04:00 A/P-Cardiology Admission Diagnosis Type II myocardial infarction C. difficile colitis Syncope Diarrhea Assessment/Plan C. difficile colitis, started on oral vancomycin, reporting some improvement, still having diarrhea Nausea and vomiting, diarrhea, secondary to colitis. Continue to monitor, continue IV fluid Hypokalemia, hypomagnesemia, we'll continue to replace and monitor Syncope, episode of dizziness and lightheadedness secondary to hypotension and hypovolemia. Continue to monitor Type II myocardial infarction, known to have history of coronary artery disease as described below, EKG showed subtle changes in V2, no reciprocal changes. Troponin is elevated and continue to rise. I am planning to proceed with cardiac catheterization to more Anemia, continue to monitor H&H. Coronary artery disease, history of multiple stents in the past, had 2 stents in the , had a cardiac catheterization after having myocardial infarction in June 2018 which showed severe instent restenosis in the proximal and mid LAD underwent balloon angioplasty using 2.5 x 15 mm balloon with a good results, moderate to severe disease at the distal LAD that was treated medically due to the size of the artery. Had severe proximal circumflex artery stenosis with successful balloon angioplasty with excellent results. 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 Continue to monitor Hypotension, labile blood pressure, keep him off blood pressure medication for now and monitor History of bladder cancer. Currently in remission Hypothyroidism, followed and managed by primary care physician Strong family history of heart disease with multiple family members with heart attack and bypass surgeries Clinical Quality Measures DVT/VTE Risk/Contraindication: Risk Factor Score Per Nursin RFS Level Per Nursing on Admit: 4+=Very High TAVON SUGGS MD December 09, 2018 12:20
[2018-12-09] MEDS ORDERED: MAGNESIUM 1 GM/100 ML IVPB 100 ML IV SCH (12:30)
[2018-12-09] MEDS ORDERED: POTASSIUM CL 10MEQ/50ML IVPB 50 ML IV SCH (12:30)
[2018-12-09] MEDS ORDERED: ONDANSETRON 4 MG (ZOFRAN) ORAL DISSOLVE TAB PO PRN (12:45)
--- NOTE | 2018-12-09 12:46 | NUR ---
8MG ORAL ZOFRAN TABS FOUND AT BEDSIDE. PT ADMITS TO TAKING THEM NEEDED. EXPLAINED HOSPITAL P/P. IS TAKING MEDS HOME AND ORDER REC'D FROM DR. BREWER FOR ZOFRAN.
--- NOTE | 2018-12-09 13:31 | Progress Note-Hospitalist ---
Subjective HPI/CC On Admission Date Seen by Provider: December 09, 2018 Time Seen by Provider: 10:45 The patient was a 68-year-old white male who had overnight it here for IV fluids and was dismissed yesterday. He reports that during the night he began to have watery diarrhea. Prior to that he had had loose stools. He had taken an an tibiotic which he cannot name at this time, the end of October. He has also been taking an oral chemotherapy agent. This is for node positive colon cancer. He has also had low blood pressures at times. This is noted over the past several days. During those moments he is not able to stand up safely. He completed his course of chemotherapy yesterday and will be due to start again next Monday. His stool tested positive for C. difficile today. Subjective/Events-last exam A she reports no abdominal pain still having small volume diarrhea with some small volume fecal incontinence but when I visited him it been 3 hours since his last stool. He denies night sweats chills fever or chest pain. He denies shortness of breath. Objective Exam Vital Signs Vital Signs Date Time Temp Pulse Resp B/P (MAP) Pulse Ox O2 Delivery O2 Flow Rate FiO2 12/09/18 13:00 100 12/09/18 12:00 98.1 20 131/80 (97) 99 Room Air Capillary Refill : Less Than 3 SecondsLess Than 3 Seconds General Appearance: No Apparent Distress, WD/WN HEENT: Normal ENT Inspection Neck: Normal Inspection Respiratory: Chest Non Tender, Lungs Clear, Normal Breath Sounds, No Respiratory Distress Cardiovascular: Regular Rate, Rhythm, No Edema, No Gallop, No JVD, No Murmur, Tachycardia Gastrointestinal: Normal Bowel Sounds, No Organomegaly, No Pulsatile Mass, Non Tender, Soft Back: Normal Inspection, No CVA Tenderness, No Vertebral Tenderness Extremity: Normal Capillary Refill, Normal Inspection, Normal Range of Motion, Non Tender, No Calf Tenderness, No Pedal Edema Neurologic/Psychiatric: Alert, Oriented x3, No Motor/Sensory Deficits Skin: Warm/Dry Lymphatic: No Adenopathy Results/Procedures Lab Laboratory Tests 12/09/18 04:00 Patient resulted labs reviewed. Assessment/Plan Assessment and Plan Assess & Plan/Chief Complaint 1. C. difficile colitis likely caused by recent antibiotic therapy for URI type symptoms. He does appear to be responding I did advocate that we continue Questran for another day or 2 and the patient is agreeable to this as it may hasten the resolution of his diarrhea which is still causing some small volume incontinence. Most importantly we discussed the fact that his inappropriate use of antibiotics I believe he had left over at home or the cause of his symptoms and that antibiotics should be used judiciously and only for suspected significant bacterial infection not likely virus that he had for which antibiotics are ineffective. He voices understanding. Continue oral vancomycin and Questran light. We will advance to regular diet patient encouraged to eat even if it does lead the postprandial diarrhea. 2. Colon cancer status post first round of chemotherapy. 3. Recent abnormal stress test concerning for coronary artery disease patient tentatively scheduled for cardiac catheter in the morning. Readdress type II diabetes mellitus we'll resume Januvia and pioglitazone but hold metformin due to upcoming cardiac catheterization. Clinical Quality Measures DVT/VTE Risk/Contraindication: Risk Factor Score Per Nursin RFS Level Per Nursing on Admit: 4+=Very High MILI BREWER MD December 09, 2018 13:31
--- NOTE | 2018-12-09 13:34 | Progress Note ---
Subjective Date Seen by a Provider: December 09, 2018 Time Seen by a Provider: 11:16 Subjective/Events-last exam patient states diarrhea may be slightly improved from yesterday. He did have some urgency and problems last night but this morning doing much better. He is tolerating diet. He denies any abdominal pain nausea vomiting fever sweats chills shortness of breath or chest pain. Objective Exam Vital Signs Date Time Temp Pulse Resp B/P (MAP) Pulse Ox O2 Delivery O2 Flow Rate FiO2 12/09/18 13:00 100 12/09/18 12:00 98.1 81 20 131/80 (97) 99 Room Air 12/09/18 08:00 98.5 77 20 103/64 (77) 98 Room Air 12/09/18 07:47 98 Room Air 12/09/18 07:30 81 12/09/18 04:46 99.3 81 20 100/63 (75) 97 Room Air 12/09/18 01:00 86 12/09/18 00:00 99.6 87 18 104/65 (78) 98 Room Air 12/08/18 20:40 Room Air 12/08/18 20:31 98.3 90 18 120/68 (85) 99 Room Air 12/08/18 19:00 94 12/08/18 16:00 97.1 80 20 175/85 (115) 100 Room Air I & O 12/09/18 07:00 Intake Total 2580 ml Balance 2580 ml Capillary Refill : Less Than 3 SecondsLess Than 3 Seconds General Appearance: No Apparent Distress, WD/WN HEENT: Normal ENT Inspection Neck: Normal Inspection Respiratory: Chest Non Tender, Lungs Clear, Normal Breath Sounds, No Respiratory Distress Cardiovascular: Regular Rate, Rhythm, No Edema, No Gallop, No JVD, No Murmur, Tachycardia Gastrointestinal: non tender, soft, no organomegaly; No distended, No guarding, No rebound, No tenderness Extremity: Normal Capillary Refill, Normal Inspection, Normal Range of Motion, Non Tender, No Calf Tenderness, No Pedal Edema Neurologic/Psychiatric: Alert, Oriented x3, No Motor/Sensory Deficits Skin: Warm/Dry Lymphatic: No Adenopathy Results Lab Laboratory Tests 12/08/18 21:55: Glucometer 204H 12/09/18 04:00: White Blood Count 3.6L, Red Blood Count 3.28L, Hemoglobin 8.1L, Hematocrit 25L, Mean Corpuscular Volume 75L, Mean Corpuscular Hemoglobin 25, Mean Corpuscular Hemoglobin Concent 33, Red Cell Distribution Width 19.3H, Platelet Count 202, Mean Platelet Volume 8.8, Sodium Level 133L, Potassium Level 2.7L, Chloride Level 104, Carbon Dioxide Level 20L, Anion Gap 9, Blood Urea Nitrogen 3L, Creatinine 0.85, Estimat Glomerular Filtration Rate > 60, BUN/Creatinine Ratio 4, Glucose Level 170H, Calcium Level 7.5L, Corrected Calcium 8.5, Total Bilirubin 0.2, Aspartate Amino Transf (AST/SGOT) 17, Alanine Aminotransferase (ALT/SGPT) 10, Alkaline Phosphatase 46, Troponin I 2.901*H, Total Protein 4.9L, Albumin 2.7L Microbiology 12/06/18 Blood Culture - Preliminary, Resulted No growth 12/06/18 Stool Culture - Final, Complete 12/06/18 Rotavirus Antigen - Final, Complete Assessment/Plan Assessment/Plan Assessment/Plan C. difficile diarrhea Hypertension type II myocardial infarction Colon cancer status post right colon resection Anemia hypokalemiareplace patient found to be C. difficile positive and diarrhea improving. Patient on oral vancomycin. cardiology considering heart catheterization. Patient not having any abdominal pain at this time. Continue medical management. No surgical intervention at this time. advance diet as tolerates Clinical Quality Measures DVT/VTE Risk/Contraindication: Risk Factor Score Per Nursin RFS Level Per Nursing on Admit: 4+=Very High SRIKANTH AGUILAR DO December 09, 2018 13:34
[2018-12-09 16:35] VITALS: BP 119/67
[2018-12-09 19:35] VITALS: BP 117/69
[2018-12-09] MEDS: PIOGLITAZONE 30MG (ACTOS) TAB PO SCH (20:43)
[2018-12-09] MEDS: PANTOPRAZOLE 40 MG (PROTONIX) TAB PO SCH (20:43)
[2018-12-10 01:00] VITALS: BP 120/72
[2018-12-10 04:44] VITALS: BP 102/65
[2018-12-10] MEDS: LEVOTHYROXINE 112 MCG (LEVOTHROID) TAB PO SCH (05:34)
[2018-12-10] MEDS: LACTOBACILLUS ACIDOPHILUS (PROBIOTIC) CAPSULE PO SCH ×3 (05:34→17:20)
[2018-12-10] MEDS: VANCOMYCIN ORAL 250 MG/5 ML 120 ML PO SCH ×8 (05:34→23:24)
[2018-12-10 05:58] LABS: HEMOGLOBIN 8.5 G/DL (13.3-17.7); MEAN PLATELET VOLUME 8.6 FL (7.4-10.4); RED CELL DISTRIBUTION WIDTH 20.4 % (10.0-14.5)
[2018-12-10 06:17] LABS: BUN/CREATININE RATIO 5; CALCIUM 7.6 MG/DL (8.5-10.1); CARBON DIOXIDE 17 MMOL/L (21-32); CHLORIDE 107 MMOL/L (98-107); CREATININE SERUM 0.81 MG/DL (0.60-1.30); GFR ESTIMATED > 60; GLUCOSE 164 MG/DL (70-105); MAGNESIUM 1.4 MG/DL (1.8-2.4); POTASSIUM 2.9 MMOL/L (3.6-5.0); SODIUM 135 MMOL/L (135-145)
--- NOTE | 2018-12-10 07:45 | NUR ---
DR. SUGGS NOTIFIED OF PT REPORTING 12 LOOSE STOOLS SINCE 1500 YESTERDAY. CATH CANCELLED. NURSING BOOKS SALESPERSON NOTIFIED. ALSO NOTIFIED OF LOW K+ AND MAG. ORDERS REC'D.
[2018-12-10 08:02] VITALS: BP 121/69
[2018-12-10] MEDS: NS IV 1000 ML 1,000 ML IV SCH ×2 (08:44→20:54)
[2018-12-10] MEDS: POTASSIUM CL 10MEQ/50ML IVPB 50 ML IV SCH ×4 (08:45→11:45)
[2018-12-10] MEDS: MAGNESIUM 1 GM/100 ML IVPB 100 ML IV SCH ×2 (08:45→09:47)
[2018-12-10] MEDS: LINAGLIPTIN (TRADJENTA) 5 MG TABLET PO SCH (08:48)
[2018-12-10] MEDS: ENOXAPARIN 40 MG/0.4 ML (LOVENOX) SYR SQ SCH (08:48)
[2018-12-10] MEDS: ASPIRIN E.C. 81 MG (ECOTRIN) TAB PO SCH (08:48)
--- NOTE | 2018-12-10 10:57 | Cardiology Progress Note ---
Subjective Date Seen by Provider: December 10, 2018 Time Seen by Provider: 10:55 Subjective/Events-last exam patient is laying down in bed, still having diarrhea, denied any chest pain Review of Systems General: No Chills, No Night Sweats; Fatigue; No Malaise, No Appetite, No Other HEENT: No Head Aches, No Visual Changes, No Eye Pain, No Ear Pain, No Dysphasia, No Sinus Congestion, No Post Nasal Drip, No Sore Throat, No Other Pulmonary: No Dyspnea, No Cough, No Pleuritic Chest Pain, No Other Cardiovascular: No: Chest Pain, Palpitations, Orthopnea, Paroxysmal Noc. Dyspnea, Edema, Lt Headedness, Other Objective-Cardiology Exam Last Set of Vital Signs Vital Signs 12/10/18 08:02 Temp 98.2 Pulse 90 Resp 18 B/P (MAP) 121/69 (86) Pulse Ox 97 O2 Delivery Room Air Capillary Refill : Less Than 3 SecondsLess Than 3 Seconds I&O Intake and Output 12/10/18 00:00 Intake Total 3770 ml Balance 3770 ml Intake Oral 1370 ml IV Total 2400 ml # Voids 11 # Bowel Movements 12 General: Alert, Oriented X3, Cooperative HEENT: Atraumatic, PERRLA Neck: Supple, No JVD, No Thyromegaly Lungs: Clear to Auscultation, Normal Air Movement Heart: Regular Rate, Normal S1, Normal S2, No Murmurs Abdomen: Normal Bowel Sounds, Soft, No Tenderness, No Hepatosplenomegaly, No Masses Extremities: No Clubbing, No Cyanosis, No Edema, Normal Pulses, No Tenderness/Swelling Skin: No Rashes, No Breakdown, No Significant Lesion Neuro: Normal Gait, Normal Speech, Strength at 5/5 X4 Ext, Normal Tone, Sensation Intact Psych/Mental Status: Mental Status NL, Mood NL Results Lab Laboratory Tests 12/10/18 05:50 A/P-Cardiology Admission Diagnosis Type II myocardial infarction C. difficile colitis Syncope Diarrhea Assessment/Plan C. difficile colitis, started on oral vancomycin, had worsening diarrhea last night, managed by primary care team Nausea and vomiting, diarrhea, secondary to colitis. Continue to monitor, continue IV fluid Hypokalemia, hypomagnesemia, continue to replace and monitor Syncope, episode of dizziness and lightheadedness secondary to hypotension and hypovolemia. Continue to monitor Type II myocardial infarction, known to have history of coronary artery disease as described below, EKG showed subtle changes in V2, no reciprocal changes. Troponin is elevated and continue to rise. I am planning to proceed with cardiac catheterization once patient is more clinically stable Anemia, slightly worse in H&H, continue to monitor Coronary artery disease, history of multiple stents in the past, had 2 stents in the , had a cardiac catheterization after having myocardial infarction in June 2018 which showed severe instent restenosis in the proximal and mid LAD underwent balloon angioplasty using 2.5 x 15 mm balloon with a good results, moderate to severe disease at the distal LAD that was treated medically due to the size of the artery. Had severe proximal circumflex artery stenosis with successful balloon angioplasty with excellent results. 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 Continue to monitor Hypotension, labile blood pressure, keep him off blood pressure medication for now and monitor History of bladder cancer. Currently in remission Hypothyroidism, followed and managed by primary care physician Strong family history of heart disease with multiple family members with heart attack and bypass surgeries Clinical Quality Measures DVT/VTE Risk/Contraindication: Risk Factor Score Per Nursin RFS Level Per Nursing on Admit: 4+=Very High TAVON SUGGS MD December 10, 2018 10:57
[2018-12-10] MEDS ORDERED: DIPHENOXYLATE/ATROPINE 2.5MG/0.025MG (LOMOTIL) TAB PO PRN (11:15)
[2018-12-10] MEDS: CHOLESTYRAMINE 4 GM (QUESTRAN LITE, PREVALITE) PKT PO SCH ×2 (11:44→20:49)
[2018-12-10 12:00] VITALS: BP 126/73
--- NOTE | 2018-12-10 13:34 | Physical Therapy Progress Note ---
Therapy Progress Note Consulted on patient for physical therapy evaluation. Pt pleasantly reports that he is getting plenty of physical activity getting up and down to the bathroom. He reports that he is doing this activity independently and does not require therapy at this time. Patient's nurse confirms that patient is taking himself to the restroom. Based on subjective report from patient hand his nurse that functional mobility is Mod I at this time, patient will not be placed on physical therapy services. Patient and his were advised that should his condition require more than one more day in the hospital, it would be advisable to start longer bouts of ambulation. LUZ LEWIS PT December 10, 2018 13:34
--- NOTE | 2018-12-10 14:20 | Progress Note ---
Subjective Date Seen by a Provider: December 10, 2018 Time Seen by a Provider: 14:15 Subjective/Events-last exam patient had multiple stools of diarrhea last night. Feels that it was slightly thicker substance of stools now. This morning it has improved though and feeling better. Denies any n/v fever sweats chills shortness of breath or chest pain. Objective Exam Vital Signs Date Time Temp Pulse Resp B/P (MAP) Pulse Ox O2 Delivery O2 Flow Rate FiO2 12/10/18 12:42 82 12/10/18 12:00 98.2 82 18 126/73 (90) 99 Room Air 12/10/18 08:02 98.2 90 18 121/69 (86) 97 Room Air 12/10/18 08:00 98 Room Air 12/10/18 07:00 89 12/10/18 04:44 99.3 91 20 102/65 (77) 96 Room Air 12/10/18 01:00 98.6 88 20 120/72 (88) 99 Room Air 12/10/18 01:00 90 12/09/18 20:40 Room Air 12/09/18 19:35 99.2 88 20 117/69 (85) 99 Room Air 12/09/18 19:00 81 12/09/18 16:35 97.2 84 20 119/67 (84) 99 Room Air I & O 12/10/18 06:59 Intake Total 3570 ml Balance 3570 ml Capillary Refill : Less Than 3 SecondsLess Than 3 Seconds General Appearance: No Apparent Distress, WD/WN HEENT: Normal ENT Inspection Neck: Normal Inspection Respiratory: Chest Non Tender, No Accessory Muscle Use, No Respiratory Distress Cardiovascular: Regular Rate, Rhythm Gastrointestinal: non tender, soft, no organomegaly; No distended, No guarding, No rebound, No tenderness Extremity: Normal Capillary Refill, Normal Inspection, Normal Range of Motion, Non Tender, No Calf Tenderness, No Pedal Edema Neurologic/Psychiatric: Alert, Oriented x3, No Motor/Sensory Deficits Skin: Warm/Dry Lymphatic: No Adenopathy Results Lab Laboratory Tests 12/10/18 05:50: White Blood Count 5.0, Red Blood Count 3.44L, Hemoglobin 8.5L, Hematocrit 26L, Mean Corpuscular Volume 76L, Mean Corpuscular Hemoglobin 25, Mean Corpuscular Hemoglobin Concent 32, Red Cell Distribution Width 20.4H, Platelet Count 236, Mean Platelet Volume 8.6, Sodium Level 135, Potassium Level 2.9L, Chloride Level 107, Carbon Dioxide Level 17L, Anion Gap 11, Blood Urea Nitrogen 4L, Creatinine 0.81, Estimat Glomerular Filtration Rate > 60, BUN/Creatinine Ratio 5, Glucose Level 164H, Calcium Level 7.6L, Magnesium Level 1.4L Microbiology 12/06/18 Blood Culture - Preliminary, Resulted No growth 12/06/18 Stool Culture - Final, Complete 12/06/18 Rotavirus Antigen - Final, Complete 12/09/18 MRSA Screen - Final, Complete MRSA not isolated Assessment/Plan Assessment/Plan Assessment/Plan C. difficile diarrhea Hypertension type II myocardial infarction Colon cancer status post right colon resection Anemia hypokalemiareplace patient found to be C. difficile positive and diarrhea slight worsening last night now better. Patient on oral vancomycin. Patient not having any abdominal pain at this time. Tolerating diet Continue medical management. No surgical intervention at this time. Electrolytes being replaced. Will follow. Clinical Quality Measures DVT/VTE Risk/Contraindication: Risk Factor Score Per Nursin RFS Level Per Nursing on Admit: 4+=Very High SRIKANTH AGUILAR DO December 10, 2018 14:20
--- NOTE | 2018-12-10 14:50 | Progress Note-Hospitalist ---
Subjective HPI/CC On Admission Date Seen by Provider: December 10, 2018 Time Seen by Provider: 10:00 The patient was a 68-year-old white male who had overnight it here for IV fluids and was dismissed yesterday. He reports that during the night he began to have watery diarrhea. Prior to that he had had loose stools. He had taken an an tibiotic which he cannot name at this time, the end of October. He has also been taking an oral chemotherapy agent. This is for node positive colon cancer. He has also had low blood pressures at times. This is noted over the past several days. During those moments he is not able to stand up safely. He completed his course of chemotherapy yesterday and will be due to start again next Monday. His stool tested positive for C. difficile today. Subjective/Events-last exam Patient had a lot of small volume stools last night again after doing relatively well during the day. He does not appear unwell nor does he feel unwell otherwise. He's had no chills fever or abdominal pain. This morning is been 3 or 4 hours since she's been to the bathroom. He reports for the past several years he is actually had some intermittent issues with urgency and several episodes of fecal incontinence although he does not recall problems with IBS type symptoms in his youth. Objective Exam Vital Signs Vital Signs Date Time Temp Pulse Resp B/P (MAP) Pulse Ox O2 Delivery O2 Flow Rate FiO2 12/10/18 12:42 82 12/10/18 12:00 98.2 18 126/73 (90) 99 Room Air Capillary Refill : Less Than 3 SecondsLess Than 3 Seconds General Appearance: No Apparent Distress, WD/WN HEENT: Normal ENT Inspection Neck: Normal Inspection Respiratory: Chest Non Tender, No Accessory Muscle Use, No Respiratory Distress Cardiovascular: Regular Rate, Rhythm Gastrointestinal: Normal Bowel Sounds, No Organomegaly, No Pulsatile Mass, Non Tender, Soft Back: Normal Inspection, No CVA Tenderness, No Vertebral Tenderness Extremity: Normal Capillary Refill, Normal Inspection, Normal Range of Motion, Non Tender, No Calf Tenderness, No Pedal Edema Neurologic/Psychiatric: Alert, Oriented x3, No Motor/Sensory Deficits Skin: Warm/Dry Lymphatic: No Adenopathy Results/Procedures Lab Laboratory Tests 12/10/18 05:50 Patient resulted labs reviewed. Assessment/Plan Assessment and Plan Assess & Plan/Chief Complaint 1. C. difficile colitis likely caused by recent antibiotic therapy for URI type symptoms. He does appear to be responding I did advocate that we continue Questran for another day or 2 and the patient is agreeable to this as it may hasten the resolution of his diarrhea which is still causing some small volume incontinence. Most importantly we discussed the fact that his inappropriate use of antibiotics I believe he had left over at home or the cause of his symptoms and that antibiotics should be used judiciously and only for suspected significant bacterial infection not likely virus that he had for which antibiotics are ineffective. He voices understanding. Continue oral vancomycin and Questran light. Patient tolerating a brat diet and clinically appears to be responding. At baseline he has some issues with stool urgency and several episodes of fecal incontinence as he has been on Questran and vancomycin for about 5 days with no toxic symptoms will initiate when necessary Lomotil 2. Colon cancer status post first round of chemotherapy. 3. Recent abnormal stress test concerning for coronary artery disease patient had been tentatively scheduled for catheter but with discussion with Dr. Gabriel he is currently asymptomatic and would not be a good candidate for dual antiplatelet therapy will continue conservative medical management at this time and hold cardiac catheterization provided he remains asymptomatic. 4. Type II diabetes mellitus back on oral meds under reasonable control. 5. Non-ST segment elevation MS aggravated by hypotension from C. difficile colitis. 6. Likely diarrhea related hypokalemia and hypomagnesemia being replaced per Dr. Gabriel IV Clinical Quality Measures DVT/VTE Risk/Contraindication: Risk Factor Score Per Nursin RFS Level Per Nursing on Admit: 4+=Very High MILI BREWER MD December 10, 2018 14:50
[2018-12-10 16:25] VITALS: BP 118/70
[2018-12-10 20:15] VITALS: BP 104/65
[2018-12-10] MEDS: PIOGLITAZONE 30MG (ACTOS) TAB PO SCH (20:49)
[2018-12-10] MEDS: PANTOPRAZOLE 40 MG (PROTONIX) TAB PO SCH (20:49)
[2018-12-11 00:26] VITALS: BP 104/56
[2018-12-11 04:00] VITALS: BP 99/55
[2018-12-11] MEDS: LACTOBACILLUS ACIDOPHILUS (PROBIOTIC) CAPSULE PO SCH ×3 (06:07→17:22)
[2018-12-11] MEDS: VANCOMYCIN ORAL 250 MG/5 ML 120 ML PO SCH ×8 (06:07→23:13)
[2018-12-11] MEDS: LEVOTHYROXINE 112 MCG (LEVOTHROID) TAB PO SCH (06:07)
[2018-12-11] MEDS: NS IV 1000 ML 1,000 ML IV SCH ×2 (06:09→16:00)
[2018-12-11] MEDS: ENOXAPARIN 40 MG/0.4 ML (LOVENOX) SYR SQ SCH (07:51)
[2018-12-11] MEDS: LINAGLIPTIN (TRADJENTA) 5 MG TABLET PO SCH (07:51)
[2018-12-11] MEDS: ASPIRIN E.C. 81 MG (ECOTRIN) TAB PO SCH (07:51)
[2018-12-11] MEDS: CHOLESTYRAMINE 4 GM (QUESTRAN LITE, PREVALITE) PKT PO SCH ×2 (07:52→20:32)
[2018-12-11 08:00] VITALS: BP 105/67
--- NOTE | 2018-12-11 10:17 | Cardiology Progress Note ---
Subjective Date Seen by Provider: December 11, 2018 Time Seen by Provider: 10:16 Subjective/Events-last exam Patient is laying down in bed, feeling better, still having diarrhea but re porting significant improvement in the frequency of bowel movements Review of Systems General: No Chills, No Night Sweats, No Fatigue, No Malaise, No Appetite, No Other HEENT: No Head Aches, No Visual Changes, No Eye Pain, No Ear Pain, No Dysphasia, No Sinus Congestion, No Post Nasal Drip, No Sore Throat, No Other Pulmonary: No Dyspnea, No Cough, No Pleuritic Chest Pain, No Other Cardiovascular: No: Chest Pain, Palpitations, Orthopnea, Paroxysmal Noc. Dyspnea, Edema, Lt Headedness, Other Objective-Cardiology Exam Last Set of Vital Signs Vital Signs 12/11/18 08:00 Temp 98.4 Pulse 79 Resp 18 B/P (MAP) 105/67 (80) Pulse Ox 98 O2 Delivery Room Air Capillary Refill : Less Than 3 SecondsLess Than 3 Seconds I&O Intake and Output 12/11/18 00:00 Intake Total 4030 ml Balance 4030 ml Intake Oral 1630 ml IV Total 2400 ml # Voids 9 # Bowel Movements 9 General: Alert, Oriented X3, Cooperative HEENT: Atraumatic, PERRLA Neck: Supple, No JVD, No Thyromegaly Lungs: Clear to Auscultation, Normal Air Movement Heart: Regular Rate, Normal S1, Normal S2, No Murmurs Abdomen: Normal Bowel Sounds, Soft, No Tenderness, No Hepatosplenomegaly, No M asses Extremities: No Clubbing, No Cyanosis, No Edema, Normal Pulses, No Tenderness/Swelling Skin: No Rashes, No Breakdown, No Significant Lesion Neuro: Normal Gait, Normal Speech, Strength at 5/5 X4 Ext, Normal Tone, Sensation Intact Psych/Mental Status: Mental Status NL, Mood NL A/P-Cardiology Admission Diagnosis Type II myocardial infarction C. difficile colitis Syncope Diarrhea Assessment/Plan C. difficile colitis, started on oral vancomycin, had worsening diarrhea last night, managed by primary care team Nausea and vomiting, diarrhea, secondary to colitis. Continue to monitor, continue IV fluid Hypokalemia, hypomagnesemia, replace, repeat metabolic profile Syncope, episode of dizziness and lightheadedness secondary to hypotension and hypovolemia, borderline hypotensive, continue to monitor Type II myocardial infarction, known to have history of coronary artery disease as described below, EKG showed subtle changes in V2, no reciprocal changes. Troponin is elevated and continue to rise. I am planning to proceed with cardiac catheterization once patient is more clinically stable Anemia, slightly worse in H&H, continue to monitor Coronary artery disease, history of multiple stents in the past, had 2 stents in the , had a cardiac catheterization after having myocardial infarction in June 2018 which showed severe instent restenosis in the proximal and mid LAD underwent balloon angioplasty using 2.5 x 15 mm balloon with a good results, moderate to severe disease at the distal LAD that was treated medically due to the size of the artery. Had severe proximal circumflex artery stenosis with successful balloon angioplasty with excellent results. 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 Continue to monitor Hypotension, labile blood pressure, keep him off blood pressure medication for now and monitor History of bladder cancer. Currently in remission Hypothyroidism, followed and managed by primary care physician Strong family history of heart disease with multiple family members with heart attack and bypass surgeries Clinical Quality Measures DVT/VTE Risk/Contraindication: Risk Factor Score Per Nursin RFS Level Per Nursing on Admit: 4+=Very High TAVON SUGGS MD December 11, 2018 10:17
[2018-12-11 11:07] LABS: MAGNESIUM 1.4 MG/DL (1.8-2.4); POTASSIUM 3.1 MMOL/L (3.6-5.0)
[2018-12-11 12:00] VITALS: BP 106/69
[2018-12-11] MEDS ORDERED: MAGNESIUM 1 GM/100 ML IVPB 200 ML IV ONE (12:03)
[2018-12-11] MEDS: POTASSIUM CL 10MEQ/50ML IVPB 50 ML IV SCH ×3 (12:12→14:17)
[2018-12-11] MEDS: MAGNESIUM 1 GM/100 ML IVPB 100 ML IV SCH ×2 (12:13→13:19)
--- NOTE | 2018-12-11 14:30 | Progress Note-Hospitalist ---
Progress Note Progress Notes/Assess & Plan Date Seen 12/11/18 Time Seen by Provider: 14:25 Assessment & Plan The patient appears to be making progress. He had one bowel movement during the night and another about 1030 this morning. He has also passed considerable gas. Eating seems to stare up additional growling and gas. He is otherwise feeling well enough. He is receiving potassium and today's potassium was 3.1. Physical exam: Blood pressure is satisfactory. Lungs are clear to auscultation. CV is regular. Abdomen is soft and not tender to palpation. Extremities show no pedal edema. Impression: Colon carcinoma post resection in September and currently on chemotherapy. 2.Clostridium difficile enteritis. 3.hypokalemia secondary to number 2. 4.incidental nSTEMI at admission Plan: Continue potassium replacement. Consider discharge tomorrow. MARIAMA DIA MD December 11, 2018 14:29
[2018-12-11 15:26] VITALS: BP 118/68
[2018-12-11 19:16] VITALS: BP 116/71
--- NOTE | 2018-12-11 20:01 | Progress Note ---
Subjective Date Seen by a Provider: December 11, 2018 Time Seen by a Provider: 17:07 Subjective/Events-last exam Patient doing well. Less diarrhea. Tolerating diet. K still down and being replaced. Cardiology considering cath tomorrow. No new complaints. Wanting to go home. Denies n/v fever sweats chills shortness of breath or chest pain. Objective Exam Vital Signs Date Time Temp Pulse Resp B/P (MAP) Pulse Ox O2 Delivery O2 Flow Rate FiO2 12/11/18 19:16 98.2 92 16 116/71 (86) 98 Room Air 12/11/18 15:26 98.0 89 20 118/68 (85) 100 Room Air 12/11/18 12:48 84 12/11/18 12:00 98.4 92 18 106/69 (81) 98 Room Air 12/11/18 08:00 98.4 79 18 105/67 (80) 98 Room Air 12/11/18 08:00 98 Room Air 12/11/18 07:00 85 12/11/18 04:00 98.5 86 18 99/55 (70) 96 Room Air 12/11/18 01:00 88 12/11/18 00:26 99.0 88 22 104/56 (72) 97 Room Air 12/10/18 22:26 Room Air 12/10/18 21:45 98.8 12/10/18 20:15 100.5 100 20 104/65 (78) 96 Room Air I & O 12/11/18 07:00 Intake Total 5130 ml Balance 5130 ml Capillary Refill : Less Than 3 SecondsLess Than 3 Seconds General Appearance: No Apparent Distress, WD/WN HEENT: Normal ENT Inspection Neck: Normal Inspection Respiratory: Chest Non Tender, No Accessory Muscle Use, No Respiratory Distress Cardiovascular: Regular Rate, Rhythm Gastrointestinal: non tender, soft, no organomegaly; No distended, No guarding, No rebound, No tenderness Extremity: Normal Capillary Refill, Normal Inspection, Normal Range of Motion, Non Tender, No Calf Tenderness, No Pedal Edema Neurologic/Psychiatric: Alert, Oriented x3, No Motor/Sensory Deficits Skin: Normal Color, Warm/Dry Lymphatic: No Adenopathy Results Lab Laboratory Tests 12/11/18 10:38: Potassium Level 3.1L, Magnesium Level 1.4L Microbiology 12/06/18 Blood Culture - Final, Complete No growth 12/06/18 Stool Culture - Final, Complete 12/06/18 Rotavirus Antigen - Final, Complete 12/09/18 MRSA Screen - Final, Complete MRSA not isolated Assessment/Plan Assessment/Plan Assessment/Plan C. difficile diarrhea Hypertension type II myocardial infarction Colon cancer status post right colon resection Anemia hypokalemiareplace patient found to be C. difficile positive and diarrhea improving. Patient on oral vancomycin. Patient not having any abdominal pain at this time. Tolerating diet Continue medical management. No surgical intervention at this time. Electrolytes being replaced. Will follow likely home tomorrow, possible cath tomorrow. Clinical Quality Measures DVT/VTE Risk/Contraindication: Risk Factor Score Per Nursin RFS Level Per Nursing on Admit: 4+=Very High SRIKANTH AGUILAR DO December 11, 2018 20:01
[2018-12-11] MEDS: PANTOPRAZOLE 40 MG (PROTONIX) TAB PO SCH (20:32)
[2018-12-11] MEDS: PIOGLITAZONE 30MG (ACTOS) TAB PO SCH (20:32)
[2018-12-12] VITALS (16 sets, daily range): BP systolic 92–135; BP diastolic 53–81
[2018-12-12] MEDS: NS IV 1000 ML 1,000 ML IV SCH ×3 (02:03→23:00)
[2018-12-12] MEDS: LACTOBACILLUS ACIDOPHILUS (PROBIOTIC) CAPSULE PO SCH ×3 (05:59→17:10)
[2018-12-12] MEDS: VANCOMYCIN ORAL 250 MG/5 ML 120 ML PO SCH ×6 (05:59→17:10)
[2018-12-12] MEDS: LEVOTHYROXINE 112 MCG (LEVOTHROID) TAB PO SCH (05:59)
[2018-12-12 06:45] LABS: BUN/CREATININE RATIO 2; CALCIUM 7.9 MG/DL (8.5-10.1); CARBON DIOXIDE 20 MMOL/L (21-32); CHLORIDE 107 MMOL/L (98-107); CREATININE SERUM 0.85 MG/DL (0.60-1.30); GFR ESTIMATED > 60; GLUCOSE 168 MG/DL (70-105); MAGNESIUM 1.6 MG/DL (1.8-2.4); POTASSIUM 3.4 MMOL/L (3.6-5.0); SODIUM 134 MMOL/L (135-145)
--- NOTE | 2018-12-12 10:00 | NUR ---
NPO FOR HEART CATH, SHOWER TAKEN, [place] SITE WITHOUT REDNESS OR SWELLING, VERBALIZED UNDERSTANDING OF HEART CATH, AM MEDS HELD ORDERED FROM DR SUGGS
[2018-12-12] MEDS: ENOXAPARIN 40 MG/0.4 ML (LOVENOX) SYR SQ SCH (10:06)
[2018-12-12] MEDS: ASPIRIN E.C. 81 MG (ECOTRIN) TAB PO SCH (10:06)
[2018-12-12] MEDS: LINAGLIPTIN (TRADJENTA) 5 MG TABLET PO SCH (10:07)
[2018-12-12] MEDS: CHOLESTYRAMINE 4 GM (QUESTRAN LITE, PREVALITE) PKT PO SCH ×2 (10:07→21:22)
[2018-12-12] MEDS ORDERED: LIDOCAINE 1% INJ 20 ML 20 ML VIAL ONE (10:16)
[2018-12-12] MEDS ORDERED: HEParin (CATH LAB) 2,000 ML IV ONE (10:17)
--- NOTE | 2018-12-12 10:49 | Progress Note ---
Subjective Date Seen by a Provider: December 12, 2018 Time Seen by a Provider: 08:27 Subjective/Events-last exam had a good night. not had any diarrhea and no lomotil. No abdominal pain. No new complaints. Denies n/v fever sweats chills shortness of breath or chest pain. Objective Exam Vital Signs Date Time Temp Pulse Resp B/P (MAP) Pulse Ox O2 Delivery O2 Flow Rate FiO2 12/12/18 08:00 100 Room Air 12/12/18 08:00 97.0 87 16 97/61 (73) 100 Room Air 12/12/18 07:00 86 12/12/18 03:44 98.6 103 16 92/53 (66) 97 Room Air 12/12/18 01:00 110 12/12/18 00:28 99.8 112 16 106/57 (73) 97 Room Air 12/11/18 20:40 Room Air 12/11/18 19:16 98.2 92 16 116/71 (86) 98 Room Air 12/11/18 19:00 97 12/11/18 15:26 98.0 89 20 118/68 (85) 100 Room Air 12/11/18 12:48 84 12/11/18 12:00 98.4 92 18 106/69 (81) 98 Room Air I & O 12/12/18 07:00 Intake Total 2345 ml Balance 2345 ml Capillary Refill : Less Than 3 SecondsLess Than 3 Seconds General Appearance: No Apparent Distress, WD/WN HEENT: Normal ENT Inspection Neck: Normal Inspection Respiratory: Chest Non Tender, No Accessory Muscle Use, No Respiratory Distress Cardiovascular: Regular Rate, Rhythm Gastrointestinal: non tender, soft, no organomegaly; No distended, No guarding, No rebound, No tenderness Extremity: Normal Capillary Refill, Normal Inspection, Normal Range of Motion, Non Tender, No Calf Tenderness, No Pedal Edema Neurologic/Psychiatric: Alert, Oriented x3, No Motor/Sensory Deficits Skin: Normal Color, Warm/Dry Lymphatic: No Adenopathy Results Lab Laboratory Tests 12/12/18 06:18: Sodium Level 134L, Potassium Level 3.4L, Chloride Level 107, Carbon Dioxide Level 20L, Anion Gap 7, Blood Urea Nitrogen 2L, Creatinine 0.85, Estimat Glomerular Filtration Rate > 60, BUN/Creatinine Ratio 2, Glucose Level 168H, Calcium Level 7.9L, Magnesium Level 1.6L Microbiology 12/06/18 Blood Culture - Final, Complete No growth 12/06/18 Stool Culture - Final, Complete 12/06/18 Rotavirus Antigen - Final, Complete 12/09/18 MRSA Screen - Final, Complete MRSA not isolated Assessment/Plan Assessment/Plan Assessment/Plan C. difficile diarrhea-improved Hypertension type II myocardial infarction Colon cancer status post right colon resection Anemia hypokalemiareplace patient found to be C. difficile positive and diarrhea improved. Patient on oral vancomycin. Patient not having any abdominal pain at this time. Tolerating diet Continue medical management. No surgical intervention at this time. Electrolytes being replaced. Possible cath today and okay to dc from surgical standpoint. Clinical Quality Measures DVT/VTE Risk/Contraindication: Risk Factor Score Per Nursin RFS Level Per Nursing on Admit: 4+=Very High SRIKANTH AGUILAR DO December 12, 2018 10:49
--- NOTE | 2018-12-12 11:06 | Progress Note-Hospitalist ---
Progress Note Progress Notes/Assess & Plan Date Seen 12/12/18 Time Seen by Provider: 11:01 Assessment & Plan The patient has improved steadily with regard to his diarrhea. His peak stool day was 12/09 with 12 stools. He has declined in a serial fashion such that he had 2 stools yesterday and only one THUS far today. He is to have a angiogram later this afternoon as he had a significant elevation in troponin at admission but was not deemed safe to proceed at that time. Physical exam: Lungs are clear to auscultation. CV is regular without murmur. Abdomen is soft. Bowel sounds are normal. Impression: C. difficile controlled. 2.non-STEMI at time of admission. MARIAMA DIA MD December 12, 2018 11:06
[2018-12-12] MEDS ORDERED: CHOL4PAC16 PO (11:31)
--- NOTE | 2018-12-12 11:35 | Discharge Inst-Simple/Standard ---
Discharge Inst-Standard Patient Instructions/Follow Up Plan of Care/Instructions/FU: Continue the vancomycin. It has been arranged for you to take the remainder of the bottle formulated here at the hospital home with you. He will take it at noon, 6 p.m., midnight, 6 a.m. until completed at noon on 12/16. The [employer] has been ordered to cover this time As well. Activity as Tolerated: Yes Goal: To resume previous activities. Discharge Diet: Low Residue MARIAMA DIA MD December 12, 2018 11:35
[2018-12-12] MEDS ORDERED: HEParin 1000 UNIT/ML (10ML VIAL) FOR BOLUS ONE (11:55)
[2018-12-12] MEDS ORDERED: MIDAZOLAM 5 MG/5 ML (VERSED) VIAL ONE (11:55)
[2018-12-12] MEDS ORDERED: fentaNYL INJECTION 100 MCG/2 ML AMP ONE (11:55)
[2018-12-12] MEDS ORDERED: NS IV 1000 ML 1,000 ML ONE (11:55)
--- NOTE | 2018-12-12 12:00 | NUR ---
TO HEART CATH PER BED, REMAINS NPO
--- NOTE | 2018-12-12 12:01 | Cardiac Procedure Note-CS/ASA ---
Pre-Procedure Note Pre-Op Procedure Note H&P Reviewed The H&P was reviewed, patient examined and no changes noted. Date H&P Reviewed: December 12, 2018 Time H&P Reviewed: 12:01 Conscious Sedation Pre-Proced Time 12:01 ASA Score 3 For ASA 3 and 4: Consider anesthesia and medical clearance. Also, for patients with a history of failed moderate sedation consider anesthesia. Airway Lungs Heart ASA score ASA 1: a normal healthy patient ASA 2: a patient with a mild systemic disease (mid diabetes, controlled hypertension, obesity x ASA 3: a patient with a severe systemic disease that limits activity (angina, COPD, prior Myocardial infarction) ASA 4: a patient with an incapacitating disease that is a constant threat to life (CHF, renal failure) ASA 5: a moribund patient not expected to survive 24 hrs. (ruptured aneurysm) ASA 6: a declared brain- patient whose organs are being harvested. For emergent operations, add the letter E after the classification Mallampati Classification Grade 3 Sedation Plan Analgesia, Amnesia, Plan communicated to team members, Discussed options with patient/fam, Discussed risks with patient/fam The patient is an appropriate candidate to undergo the planned procedure, sedation, and anesthesia. The patient immediately re-assessed prior to indication. TAVON SUGGS MD December 12, 2018 12:01
[2018-12-12] MEDS ORDERED: NITRO DRIP 25000 MCG/D5W 250 ML IV ONE (12:32)
[2018-12-12] MEDS ORDERED: CLOPIDOGREL 300 MG (PLAVIX) TABLET PO ONE (12:53)
[2018-12-12] MEDS ORDERED: ASPIRIN 325 MG (5 GR) TABLET ONE (12:53)
--- NOTE | 2018-12-12 12:59 | Cardiology Progress Note ---
Subjective Date Seen by Provider: December 12, 2018 Time Seen by Provider: 12:56 Review of Systems General: No Chills, No Night Sweats, No Fatigue, No Malaise, No Appetite, No Other HEENT: No Head Aches, No Visual Changes, No Eye Pain, No Ear Pain, No Dysphasia, No Sinus Congestion, No Post Nasal Drip, No Sore Throat, No Other Pulmonary: No Dyspnea, No Cough, No Pleuritic Chest Pain, No Other Cardiovascular: No: Chest Pain, Palpitations, Orthopnea, Paroxysmal Noc. Dyspnea, Edema, Lt Headedness, Other Objective-Cardiology Exam Last Set of Vital Signs Vital Signs 12/12/18 08:00 Temp 97.0 Pulse 87 Resp 16 B/P (MAP) 97/61 (73) Pulse Ox 100 O2 Delivery Room Air Capillary Refill : Less Than 3 SecondsLess Than 3 Seconds I&O Intake and Output 12/12/18 00:00 Intake Total 2445 ml Balance 2445 ml Intake Oral 1445 ml IV Total 1000 ml # Voids 7 # Bowel Movements 2 General: Alert, Oriented X3, Cooperative HEENT: Atraumatic, PERRLA Neck: Supple, No JVD, No Thyromegaly Lungs: Clear to Auscultation, Normal Air Movement Heart: Regular Rate, Normal S1, Normal S2, No Murmurs Abdomen: Normal Bowel Sounds, Soft, No Tenderness, No Hepatosplenomegaly, No M asses Extremities: No Clubbing, No Cyanosis, No Edema, Normal Pulses, No Tende rness/Swelling Skin: No Rashes, No Breakdown, No Significant Lesion Neuro: Normal Gait, Normal Speech, Strength at 5/5 X4 Ext, Normal Tone, Sensation Intact Psych/Mental Status: Mental Status NL, Mood NL Results Lab Laboratory Tests 12/12/18 06:18 A/P-Cardiology Admission Diagnosis Type II myocardial infarction C. difficile colitis Syncope Diarrhea Assessment/Plan C. difficile colitis, feeling better today, managed by primary care team Nausea and vomiting, diarrhea, secondary to colitis, reporting improvement Hypokalemia, hypomagnesemia, improving, continue to monitor Syncope, episode of dizziness and lightheadedness secondary to hypotension and hypovolemia, borderline hypotensive, continue to monitor Type II myocardial infarction, cardiac catheterization and stenting to the LAD was done today Congestive heart failure, chronic compensated left ventricular systolic dysfunction, noted to have anterior wall hypokinesia secondary to coronary artery disease Anemia, continue to monitor Coronary artery disease, history of multiple stents in the past, had 2 stents in the , had a cardiac catheterization after having myocardial infarction in June 2018 which showed severe instent restenosis in the proximal and mid LAD underwent balloon angioplasty using 2.5 x 15 mm balloon with a good results, moderate to severe disease at the distal LAD that was treated medically due to the size of the artery. Had severe proximal circumflex artery stenosis with successful balloon angioplasty with excellent results. 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 Continue to monitor Hypotension, labile blood pressure, keep him off blood pressure medication for now and monitor History of bladder cancer. Currently in remission Hypothyroidism, followed and managed by primary care physician Strong family history of heart disease with multiple family members with heart attack and bypass surgeries Clinical Quality Measures DVT/VTE Risk/Contraindication: Risk Factor Score Per Nursin RFS Level Per Nursing on Admit: 4+=Very High TAVON SUGGS MD December 12, 2018 12:59
[2018-12-12] MEDS ORDERED: PATIENT MAY USE OWN MEDS, ALL PO SCH (13:00)
--- NOTE | 2018-12-12 13:07 | Cardiac Cath Report ---
Cardiac Cath Report Physician (s)/Load Checker (s) Physician TAVON SUGGS MD Pre-Procedure Diagnosis Pre-Procedure Diagnosis: coronary artery disease Post-Procedure Note Procedure Start Date: December 12, 2018 Name of Procedure: left heart catheterization Left ventriculogram Stent to the LAD Findings/Procedure Note PROCEDURE NOTE: 68 years old gentleman with extensive coronary artery disease multiple intervention admitted for syncope and hypotension, had elevation in troponin level, has been having significant diarrhea due to C. difficile colitis, currently better. Decided to proceed with cardiac catheterization possible PTCA After explaining the procedure to the patient, all pros and cons were explained, all questions were answered. The patient signed the consent and then he was placed on the cardiac catheterization laboratory. Groin was prepped SL fashion local anesthesia was used. Sheath placed in the artery. Arlen right and left catheter were used to access the coronary system. Pigtail was used to access the left ventricular cavity. Left ventriculogram Was done Patient was noted to have severe in-stent restenosis in the mid LAD subtotal occlusion and proximal LAD lesion. I decided to proceed with percutaneous intervention using balloon angioplasty, 6000 units of heparin, BMW wire was advanced through the LAD and parked distally. I proceeded with noncompliant balloon initially patient has significant lesion with resistant lesion that was causing watermelon seed effect on the balloon after multiple attempts I was able to inflated to 3.015 millimeter with multiple inflation, some improvement was noted but still have severe lesion I used Emerge 3.0 x 20 mm did multiple inflation with some improvement still have significant recoil and restenosis and the ostial LAD appeared more significant. I attempted with multiple balloon i nflation to avoid deployment of stent but due to fact that he had significant recoil and heavily calcified lesion I was obligated to proceed with stent I used a single long stent with Agnieszka 2.7533 mm expanded from the proximal portion of the LAD up to beyond the old stent covering the whole area, Inc. inflated to 2.9 mm with excellent results. At this point wire and sheath were removed. No complication noted At the end of the procedure the sheath was removed. Closure device was used FINDINGS: Hemodynamics LV 130/13 Aorta 125/59 mean of 82 ANATOMY: Left Main is free of obstructive disease Left Anterior Descending has severe instent restenosis in the mid LAD, severe lesion in the proximal LAD, resistant lesion, multiple attempts with balloon angioplasty failed to establish better flow, I deployed Agnieszka 2.7533 mm long stent extending from the Roxanol LAD to the midportion covering the old stent expanded to 2.9 mm with excellent results. Distal LAD has moderate severe lesion, the artery is less than 1.5 mm in diameter Left Circumflex has sbqf-da-orpeevwg disease nonobstructive disease Right Coronory Artery heavily calcified with patent stent with mild to moderate disease nonobstructive disease LV Gram is prominent with hypokinesia of the anterior wall estimated ejection fraction 45 percent CONCLUSION: 1. Severe restenosis in the proximal and mid LAD with in-stent restenosis resistant to balloon angioplasty, multiple attempt with made without success. Obligated the deployment of drug-eluting stent using the long serum 2.7533 mm expanded to 2.9 mm with excellent results, the distal LAD has severe stenosis, fairly smaller artery less than 1.5 cm in diameter 2. Heavily calcified right coronary artery with multiple stents, mild to moderate disease nonobstructive disease 3. Mild to moderate circumflex artery disease nonobstructive disease 4. Prominent left ventricle with hypokinesia of the anterior wall probably due to the severe LAD stenosis, ejection fraction 45 percent DISCUSSION AND RECOMMENDATION: I will continue maximizing medical therapy and monitor closely Anesthesia Type: Conscious Sedation Estimated blood loss (mL): 25 ml Contrast Amount: 187 ml Total Radiation Dose: 1309 mGy Post-Procedure Diagnosis Post-operative diagnosis: Type II myocardial infarction Coronary artery disease Congestive heart failure, acute left ventricular systolic dysfunction, ischemic cardiomyopathy Hypertension Hyperlipidemia TAVON SUGGS MD December 12, 2018 13:07
[2018-12-12] MEDS: PIOGLITAZONE 30MG (ACTOS) TAB PO SCH (20:25)
[2018-12-12] MEDS: PANTOPRAZOLE 40 MG (PROTONIX) TAB PO SCH (20:25)
[2018-12-13] VITALS: BP 91/61
[2018-12-13] MEDS: VANCOMYCIN ORAL 250 MG/5 ML 120 ML PO SCH ×4 (01:00→06:46)
[2018-12-13 04:00] VITALS: BP 114/78
[2018-12-13 04:50] LABS: HEMOGLOBIN 8.6 G/DL (13.3-17.7); MEAN PLATELET VOLUME 9.3 FL (7.4-10.4); RED CELL DISTRIBUTION WIDTH 20.5 % (10.0-14.5); WHITE BLOOD COUNT 5.8 10^3/uL (4.3-11.0)
[2018-12-13 05:05] LABS: BUN/CREATININE RATIO 5; CALCIUM 7.7 MG/DL (8.5-10.1); CARBON DIOXIDE 21 MMOL/L (21-32); CHLORIDE 104 MMOL/L (98-107); CREATININE SERUM 0.79 MG/DL (0.60-1.30); GFR ESTIMATED > 60; GLUCOSE 176 MG/DL (70-105); POTASSIUM 3.3 MMOL/L (3.6-5.0); SODIUM 132 MMOL/L (135-145)
[2018-12-13] MEDS: LEVOTHYROXINE 112 MCG (LEVOTHROID) TAB PO SCH (06:46)
[2018-12-13] MEDS: LACTOBACILLUS ACIDOPHILUS (PROBIOTIC) CAPSULE PO SCH (06:46)
--- NOTE | 2018-12-13 07:03 | Cardiology Progress Note ---
Subjective Date Seen by Provider: December 13, 2018 Time Seen by Provider: 07:00 Subjective/Events-last exam Patient is laying down in bed, feeling better, reporting improvement in his diarrhea, denied any chest pain. Review of Systems General: No Chills, No Night Sweats, No Fatigue, No Malaise, No Appetite, No Other HEENT: No Head Aches, No Visual Changes, No Eye Pain, No Ear Pain, No Dysphasia, No Sinus Congestion, No Post Nasal Drip, No Sore Throat, No Other Pulmonary: No Dyspnea, No Cough, No Pleuritic Chest Pain, No Other Cardiovascular: No: Chest Pain, Palpitations, Orthopnea, Paroxysmal Noc. Dyspnea, Edema, Lt Headedness, Other Objective-Cardiology Exam Last Set of Vital Signs Vital Signs 12/13/18 04:00 Temp 98.0 Pulse 90 Resp 18 B/P (MAP) 114/78 (90) Pulse Ox 99 O2 Delivery Room Air Capillary Refill : Less Than 3 SecondsLess Than 3 Seconds I&O Intake and Output 12/13/18 00:00 Intake Total 1250 ml Output Total 500 ml Balance 750 ml Intake Oral 250 ml IV Total 1000 ml Output Urine Total 500 ml # Voids 3 # Bowel Movements 1 General: Alert, Oriented X3, Cooperative HEENT: Atraumatic, PERRLA Neck: Supple, No JVD, No Thyromegaly Lungs: Clear to Auscultation, Normal Air Movement Heart: Regular Rate, Normal S1, Normal S2, No Murmurs Abdomen: Normal Bowel Sounds, Soft, No Tenderness, No Hepatosplenomegaly, No Masses Extremities: No Clubbing, No Cyanosis, No Edema, Normal Pulses, No Tenderness/Swelling Skin: No Rashes, No Breakdown, No Significant Lesion Neuro: Normal Gait, Normal Speech, Strength at 5/5 X4 Ext, Normal Tone, Sensation Intact Psych/Mental Status: Mental Status NL, Mood NL Results Lab Laboratory Tests 12/13/18 04:00 A/P-Cardiology Admission Diagnosis Type II myocardial infarction C. difficile colitis Syncope Diarrhea Assessment/Plan C. difficile colitis, feeling better today, managed by primary care team Nausea and vomiting, diarrhea, secondary to colitis, reporting improvement Hypokalemia, hypomagnesemia, improving, managed by primary care team Syncope, episode of dizziness and lightheadedness secondary to hypotension and hypovolemia, borderline hypotensive, continue to monitor Type II myocardial infarction, cardiac catheterization and stenting to the LAD with excellent results. Congestive heart failure, chronic compensated left ventricular systolic dysfunction, noted to have anterior wall hypokinesia secondary to coronary artery disease Anemia, continue to monitor Coronary artery disease, history of multiple stents in the past, had 2 stents in the , had a cardiac catheterization after having myocardial infarction in June 2018 which showed severe instent restenosis in the proximal and mid LAD underwent balloon angioplasty using 2.5 x 15 mm balloon with a good results, moderate to severe disease at the distal LAD that was treated medically due to the size of the artery. Had severe proximal circumflex artery stenosis with successful balloon angioplasty with excellent results. Unable to advance the stent due to the angle of the takeoff of the circumflex artery, cardiac catheterization was done showing resistant lesion within the old stent and within the proximal LAD, did not respond well to balloon angioplasty, I proceeded with deployment of a long stent 2.7533 expanded to 2.9 mm with excellent results. 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 Keep him off Coumadin Diabetes mellitus, followed and managed by primary care physician Hyperlipidemia, was on statin, hold statin now due to the persistent diarrhea. Continue to monitor Hypotension, labile blood pressure, keep him off blood pressure medication for now and monitor History of bladder cancer. Currently in remission Hypothyroidism, followed and managed by primary care physician Strong family history of heart disease with multiple family members with heart attack and bypass surgeries Clinical Quality Measures DVT/VTE Risk/Contraindication: Risk Factor Score Per Nursin RFS Level Per Nursing on Admit: 4+=Very High TAVON SUGGS MD December 13, 2018 07:03
[2018-12-13] MEDS ORDERED: CLOP75TA28 PO (07:08)
[2018-12-13] MEDS ORDERED: METF-399 PO (07:08)
--- NOTE | 2018-12-13 07:09 | Discharge Inst-Post CATH ---
Discharge Inst-CATH/EP Post Cardiac Cath/EP D/C Inst Follow Up/Plan Hold metformin for [address] SUGGS's office in 2 weeks <b>CARDIAC CATH/EP PROCEDURE DISCHARGE INSTRUCTIONS</b> Cardiac Rehab Please be expecting a follow up call from Cardiac Rehab within in one week. ACTIVITY * Go Home directly and rest. * Limit activity of the leg (or wrist if it was used) for 7 days including aerobics, swimming, jogging, bicycling, etc. * Restrict stair-climbing for 7 days if possible, if not, climb up with your non-cath leg, then bring together on the same step. * Avoid lifting, pushing, pulling or excessive movement of the affected extremity for 7 days. * Customary sexual activity may be resumed after 2 days-use caution not to use a position that strains or causes pain to the affected extremity. * No driving for 24 hours. * NO SMOKING. * Avoid straining for bowel movements for 7 days. * Gentle walking on level ground is allowed. * Returning to work will depend on the type of procedure and the results. Your doctor will discuss this with you. CALL YOUR DOCTOR FOR ANY OF THE FOLLOWING: *If bleeding from the puncture site occurs- Apply gentle pressure to site with clean cloth and call your doctor or EMS. * If a knot or lump forms under the skin, increases in size, or causes pain. * If bruising appears to be worsening or moving further down your leg instead of disappearing. * Temperature above 101 F. CARE OF YOUR GROIN INCISION; * Bruising or purple discoloration of the skin near the puncture site is common. * You may shower only, no bathtub bathing for 5 days. Be careful to avoid slipping as your leg may feel stiff. * If a closure device was used on your femoral artery, please see the attached guide regarding care of the device and your leg. * Leave dressing on FOR 24 hours. CARE OF YOUR WRIST INCISION; * Bruising or purple discoloration of the skin near the puncture site is common. * You may shower. * DO NOT submerge wrist. * Leave dressing on FOR 24 hours. TAVON SUGGS MD December 13, 2018 07:09
[2018-12-13 08:00] VITALS: BP 143/77
[2018-12-13] MEDS: CHOLESTYRAMINE 4 GM (QUESTRAN LITE, PREVALITE) PKT PO SCH (08:03)
[2018-12-13] MEDS: ENOXAPARIN 40 MG/0.4 ML (LOVENOX) SYR SQ SCH (08:04)
[2018-12-13] MEDS: LINAGLIPTIN (TRADJENTA) 5 MG TABLET PO SCH (08:04)
[2018-12-13] MEDS ORDERED: ASPIRIN E.C. 81 MG (ECOTRIN) TAB PO SCH (09:00)
[2018-12-13] MEDS ORDERED: CLOPIDOGREL 75 MG (PLAVIX) TABLET PO SCH (09:00)
[2018-12-13 09:11] VITALS: BP 143/77
--- NOTE | 2018-12-13 10:15 | Discharge Summary-Hospitalist ---
Diagnosis/Chief Complaint Date of Admission December 07, 2018 at 09:23 Date of Discharge December 13, 2018 at 09:16 Discharge Diagnosis (1) Hypotension Status: Resolved (2) Syncope Status: Resolved (3) Hyponatremia Status: Resolved (4) Colon cancer Status: Chronic (5) Acute renal insufficiency Status: Resolved (6) Chemotherapy adverse reaction Status: Acute (7) Dehydration Status: Acute (8) Diarrhea Status: Acute (9) Vomiting Status: Acute (10) Symptomatic anemia Status: Acute (11) Status post chemotherapy Status: Acute (12) Orthostatic hypotension Status: Acute (13) Near syncope Status: Acute (14) C. difficile colitis Discharge Summary Discharge Physical Exam Allergies: Coded Allergies: No Known Drug Allergies (Unverified , 11/15/18) Vitals & I&Os Vital Signs Date Time Temp Pulse Resp B/P (MAP) Pulse Ox O2 Delivery O2 Flow Rate FiO2 12/13/18 09:11 81 16 143/77 98 Room Air 12/13/18 08:00 96.9 General Appearance: No Apparent Distress, WD/WN Hospital Course Was the Problem List Reviewed?: Yes Pt had a lengthy hospital course for 7 days after he was admitted for dehydration and c-diff colitis. Pt was placed on Vancomycin orally and Dr. Peñaloza was consulted along with Dr. Osorio due to colon cancer and just finished his first chemotherapy round. Severe hypotension continued, severe sepsis protocol was followed, aggressive IV fluids were initiated and cardiology followed the patient requiring a cardiac catheterization with intervention due to the elevated troponin indicative of angina and acute coronary syndrome. Overall he did well and he had completed all medications for the c-diff, was having formed stools and he was ready for DC so he was discharged by the cardiology service with close follow up with PCP and Dr. Berrios. Labs (last 24 hrs) Laboratory Tests 12/13/18 04:00: White Blood Count 5.8, Red Blood Count 3.46L, Hemoglobin 8.6L, Hematocrit 26L, Mean Corpuscular Volume 75L, Mean Corpuscular Hemoglobin 25, Mean Corpuscular Hemoglobin Concent 33, Red Cell Distribution Width 20.5H, Platelet Count 234, Mean Platelet Volume 9.3, Sodium Level 132L, Potassium Level 3.3L, Chloride Level 104, Carbon Dioxide Level 21, Anion Gap 7, Blood Urea Nitrogen 4L, Creatinine 0.79, Estimat Glomerular Filtration Rate > 60, BUN/Creatinine Ratio 5, Glucose Level 176H, Calcium Level 7.7L Microbiology 12/06/18 Blood Culture - Final, Complete No growth 12/06/18 Stool Culture - Final, Complete 12/06/18 Rotavirus Antigen - Final, Complete 12/09/18 MRSA Screen - Final, Complete MRSA not isolated Patient resulted labs reviewed. Pending Labs Discussion & Recommendations Discharge Planning: <30 minutes discharge planning Discharge Home Medications: Active Scripts Active Clopidogrel (Clopidogrel Bisulfate) 75 Mg Tablet 75 Mg PO DAILY Metformin HCl 1,000 Mg Tablet 1,000 Mg PO BID 1 Days Hold metformin for 48 hours Questran Packet (Cholestyramine (with Sugar)) 4 Gm Powd.pack 4 Gm PO TWICE A DAY Reported Chlorpheniramine Maleate 4 Mg Tablet 4 Mg PO BID PRN Chlorpheniramine Maleate 4 Mg Tablet 4 Mg PO DAILY Ondansetron Odt (Ondansetron) 8 Mg Tab.rapdis 8 Mg PO Q3H PRN Capecitabine 500 Mg Tablet PO UD TAKE 4 TABLETS BY MOUTH EVERY 12 HOURS FOR 14 DAYS THEN OFF FOR 7 DAYS Protonix (Pantoprazole Sodium) 40 Mg Tablet.dr 40 Mg PO HS Flonase Allergy Relief (Fluticasone Propionate) 9.9 Ml [place].susp 2 [place] NS DAILY PRN Vitamin B-12 (Cyanocobalamin (Vitamin B-12)) 1,000 Mcg Tablet 1,000 Mcg PO HS Metronidazole 45 Gm Cream..g. TP HS Iron (Ferrous Sulfate) 325 Mg Tablet 325 Mg PO TID Finacea (Azelaic Acid) 50 Gm Gel..gram. TP DAILY Elidel (Pimecrolimus) 30 Gm Cream.gm. TP DAILY PRN Lo-Dose Aspirin EC (Aspirin) 81 Mg Tablet.dr 81 Mg PO DAILY Atorvastatin Calcium 40 Mg Tablet 40 Mg PO HS Januvia (Sitagliptin Phosphate) 100 Mg Tablet 100 Mg PO DAILY Glipizide 10 Mg Tablet 10 Mg PO BID Pioglitazone HCl 30 Mg Tablet 30 Mg PO HS Levothyroxine Sodium 112 Mcg Tablet 112 Mcg PO DAILY Instructions to patient/family Please see electronic discharge instructions given to patient. Clinical Quality Measures DVT/VTE Risk/Contraindication: Risk Factor Score Per Nursin RFS Level Per Nursing on Admit: 4+=Very High LEONARDO GARRIDO DO December 13, 2018 10:14
== END 2018-12-13 09:16 | disposition home or self-care (01) | DRG 246 ==
LOC: EDUNIT# 08:48 → ER FS 08:49 → ICU 11:31 → UNDOADMOB 11:31 → INTOOBSV 12-07 09:23 → OBSVTOIN 12-07 09:23 → ICU 12-07 12:37 → 4TH 12-07 12:37 → ICU 12-12 13:44 → UNDODISIN 12-13 09:16
PROVIDERS: ADMIT Internal Medicine; ATTEND Internal Medicine
PROC: 027034Z Dilation of Coronary Artery, One Artery with Drug-eluting Intraluminal Device, Percutaneous Approach (ICD-10-PCS; principal; 2018-12-12)
PROC: 4A023N7 Measurement of Cardiac Sampling and Pressure, Left Heart, Percutaneous Approach (ICD-10-PCS; 2018-12-12)
PROC: B2111ZZ Fluoroscopy of Multiple Coronary Arteries using Low Osmolar Contrast (ICD-10-PCS; 2018-12-12)
PROC: B2151ZZ Fluoroscopy of Left Heart using Low Osmolar Contrast (ICD-10-PCS; 2018-12-12)
DX: I21.A1 Myocardial infarction type 2 (principal); T82.855A Stenosis of coronary artery stent, initial encounter; I25.10 Atherosclerotic heart disease of native coronary artery without angina pectoris; I11.0 Hypertensive heart disease with heart failure; I50.23 Acute on chronic systolic (congestive) heart failure; E87.1 Hypo-osmolality and hyponatremia; D61.810 Antineoplastic chemotherapy induced pancytopenia; C18.9 Malignant neoplasm of colon, unspecified; C77.2 Secondary and unspecified malignant neoplasm of intra-abdominal lymph nodes; A04.72 Enterocolitis due to Clostridium difficile, not specified as recurrent; I95.1 Orthostatic hypotension; E86.1 Hypovolemia; E86.0 Dehydration; E87.6 Hypokalemia; E83.42 Hypomagnesemia; E11.9 Type 2 diabetes mellitus without complications; D72.825 Bandemia; I25.5 Ischemic cardiomyopathy; E78.00 Pure hypercholesterolemia, unspecified; E03.9 Hypothyroidism, unspecified; Z95.5 Presence of coronary angioplasty implant and graft; Z87.891 Personal history of nicotine dependence; Z79.84 Long term (current) use of oral hypoglycemic drugs; Z85.51 Personal history of malignant neoplasm of bladder; Z90.49 Acquired absence of other specified parts of digestive tract; Z79.899 Other long term (current) drug therapy; Z82.49 Family history of ischemic heart disease and other diseases of the circulatory system; Z79.01 Long term (current) use of anticoagulants; Z86.718 Personal history of other venous thrombosis and embolism; Z86.711 Personal history of pulmonary embolism
CPT/HCPCS: 36415; 71045; 80048; 80053; 81000; 82274; 82728; 82962; 83540; 83605; 83690; 83735; 84132; 84484; 85007; 85027; 85347; 87015; 87040; 87045; 87046; 87081; 87324; 87425; 87449; 87899; 93005; 93458; 96361; 96365; 96375

== ENCOUNTER → 2018-12-19 | Outpatient (CLI) | payer MEDICARE ==
[~2018-12-19] MED LIST changes: +CHOL4PAC16 PO
[2018-12-19 15:32] LABS: HEMATOCRIT 35 % (40-54); HEMOGLOBIN 10.8 G/DL (13.3-17.7); MEAN CORPUSCULAR HEMOGLOBIN 25 PG (25-34); MEAN CORPUSCULAR HGB CONC 31 G/DL (32-36); MEAN CORPUSCULAR VOLUME 80 FL (80-99); MEAN PLATELET VOLUME 9.1 FL (7.4-10.4); PLATELET COUNT 308 10^3/uL (130-400); WHITE BLOOD COUNT 5.9 10^3/uL (4.3-11.0)
[2018-12-19 15:38] LABS: LYMPHOCYTES % (AUTO) 48 % (12-44); NEUTROPHILS % (AUTO) 37 % (42-75)
[2018-12-19 15:39] LABS: BASOPHILS # (AUTO) 0.1 10^3/uL (0.0-0.1); BASOPHILS % (AUTO) 1 % (0-10); EOSINOPHILS # (AUTO) 0.2 10^3/uL (0.0-0.3); EOSINOPHILS % (AUTO) 3 % (0-10); LYMPHOCYTES # (AUTO) 2.8 X 10^3 (1.0-4.0); MONOCYTES # (AUTO) 0.6 X 10^3 (0.0-1.0); MONOCYTES % (AUTO) 11 % (0-12); NEUTROPHILS # (AUTO) 2.1 X 10^3 (1.8-7.8)
[2018-12-19 15:40] LABS: SMEAR SCAN COMMENT YES
== END ==
LOC: LAB FS 14:14
PROVIDERS: ATTEND Internal Medicine Hematology & Oncology
DX: C67.9 Malignant neoplasm of bladder, unspecified (principal)
CPT/HCPCS: 36415; 85025

== ENCOUNTER 2019-01-16 11:05 | Outpatient (RCR) | payer MEDICARE ==
[~2019-01-16 11:05] MED LIST changes: -ASPI-989 PO; +CYAN-41 PO; -CYAN10006 PO; +[UNRECOGNIZED DRUG - CODE] PO
[2019-01-21] MEDS ORDERED: LACT1CAP72 PO (16:30)
[2019-01-21] MEDS ORDERED: METF-399 PO (16:30)
[2019-01-21] MEDS ORDERED: CLOP75TA69 PO (16:30)
[2019-01-21] MEDS ORDERED: LEVO500T80 PO (16:30)
[2019-01-21] MEDS ORDERED: PANT40TA3 PO (16:30)
[2019-01-24] MEDS ORDERED: PANT40SU PO (18:11)
[2019-03-18] MEDS ORDERED: MAGN400C PO (09:52)
[2019-03-18] MEDS ORDERED: DIPH1TAB PO (09:52)
[2019-03-22] MEDS ORDERED: HYDR20TA2 PO ×2 (14:25)
[2019-03-22] MEDS ORDERED: HYOS0.1296 PO (14:25)
[2019-03-22] MEDS ORDERED: FLUC100T6 PO (14:25)
== END 2019-04-14 | disposition home or self-care (01) ==
LOC: CR 11:05
PROVIDERS: ATTEND Internal Medicine Cardiovascular Disease
DX: Z48.812 Encounter for surgical aftercare following surgery on the circulatory system (principal); Z95.5 Presence of coronary angioplasty implant and graft
CPT/HCPCS: 93798

== ENCOUNTER 2019-01-16 12:57 | Emergency (ER) | payer MEDICARE ==
[~2019-01-16] VITALS: Ht 188 cm; Wt 97.5 kg
[~2019-01-16 12:57] MED LIST changes: +ASPI-989 PO; -CYAN-41 PO; +CYAN10006 PO; -[UNRECOGNIZED DRUG - CODE] PO
[2019-01-16] MEDS ORDERED: NS IV 1000 ML 1,000 ML IV ONE ×3 (13:06→18:30)
[2019-01-16] MEDS ORDERED: ONDANSETRON 4 MG/2 ML (SDV) Z0FRAN IVP ONE (13:15)
[2019-01-16 13:34] VITALS: BP 119/63
[2019-01-16 13:38] LABS: BASOPHILS % (AUTO) 0 % (0-10); EOSINOPHILS # (AUTO) 0.1 10^3/uL (0.0-0.3); EOSINOPHILS % (AUTO) 1 % (0-10); HEMATOCRIT 34 % (40-54); HEMOGLOBIN 11.2 G/DL (13.3-17.7); LYMPHOCYTES # (AUTO) 1.3 X 10^3 (1.0-4.0); LYMPHOCYTES % (AUTO) 25 % (12-44); MEAN CORPUSCULAR HEMOGLOBIN 27 PG (25-34); MEAN CORPUSCULAR HGB CONC 33 G/DL (32-36); MEAN CORPUSCULAR VOLUME 82 FL (80-99); MEAN PLATELET VOLUME 9.5 FL (7.4-10.4); MONOCYTES # (AUTO) 0.4 X 10^3 (0.0-1.0); MONOCYTES % (AUTO) 8 % (0-12); NEUTROPHILS # (AUTO) 3.5 X 10^3 (1.8-7.8); NEUTROPHILS % (AUTO) 66 % (42-75); PLATELET COUNT 183 10^3/uL (130-400); RED CELL DISTRIBUTION WIDTH 22.9 % (10.0-14.5); WHITE BLOOD COUNT 5.3 10^3/uL (4.3-11.0)
[2019-01-16 13:51] LABS: INR 1.1 (0.8-1.4); PROTHROMBIN TIME PATIENT 14.5 SEC (12.2-14.7)
[2019-01-16 13:58] LABS: ALBUMIN 3.8 GM/DL (3.2-4.5); BILIRUBIN,TOTAL 0.5 MG/DL (0.1-1.0); CALCIUM 9.2 MG/DL (8.5-10.1); CREATININE SERUM 1.24 MG/DL (0.60-1.30); POTASSIUM 3.6 MMOL/L (3.6-5.0)
--- NOTE | 2019-01-16 14:36 | Diagnostic Imaging Report ---
INDICATION: Chest pain. EXAMINATION: Portable chest at 2:17 PM. FINDINGS: The right IJ Port-A-Cath tip projects over the SVC. The heart size and pulmonary vascularity are normal. The lungs are clear. There are no effusions or pneumothoraces. IMPRESSION: Negative chest. Dictated by: Dictated on workstation # [id number]
--- NOTE | 2019-01-16 15:39 | ED General ---
General Chief Complaint: Abdominal/GI Problems Stated Complaint: WEAKNESS;LOW BP;VOMITING Nursing Triage Note: PT PRESENTS TO ER VIA WC WITH TO RM 5 WITH COMPLAINTS OF LOW BP AND ABD PAIN. PT REPORTS HIS BP DURING CARDIAC REHAB TODAY AT 1130 WAS 70's systolic and 50's DIASTOLIC BUT BP IS 119/63 UPON ARRIVAL TO ED. PT REPORTS ABDOMINAL PAIN X 3 DAYS WITH VOMITING STARTING TODAY AT 1230 WHICH RELIEVED SOME OF THE PAIN. PT STATES TODAY IS HIS LAST DAY OF HIS ORAL CHEMO MEDICATION AND THINKS THAT MIGHT BE A CONTRIBUTING FACTOR. Nursing Sepsis Screen: No Definite Risk Source of Information: Patient, Family, Old Records Exam Limitations: No Limitations History of Present Illness Date Seen by Provider: Jan 16, 2019 Time Seen by Provider: 13:06 Initial Comments This 68-year-old gentleman with history of colon cancer status post resection and on chemotherapy presents to the emergency room with primary complaint of hypotension and syncope. He went to cardiac rehabilitation today and was noted to be hypotensive there. He then had a syncopal episode in the car. He has had some nausea and vomiting recently and some right-sided abdominal pain for about the past 3 days. He has had a couple episodes of liquidy stool when he has been hypotensive. The hypertension is actually an ongoing problem has been intermittent for a few months. Patient states Dr. Melchor is aware of the situation. He is presently on Levaquin for a salivary gland infection. He is concerned he may have developed C. difficile related to that as he has had C. difficile in the recent past. A stool specimen collected and sent as ordered by the Cancer Center was negative for C. difficile. Patient has been feeling rather weak and has loss of appetite. Patient is at the end of his oral chemotherapy for this cycle. Patient also reports decreased urine output with some hesitancy. Allergies and Home Medications Allergies Coded Allergies: No Known Drug Allergies (Unverified , 11/15/18) Home Medications Aspirin 81 Mg Tablet.dr, 81 MG PO DAILY, (Reported) Atorvastatin Calcium 40 Mg Tablet, 40 MG PO HS, (Reported) Azelaic Acid 50 Gm Gel..gram., TP DAILY, (Reported) Capecitabine 500 Mg Tablet, PO UD, (Reported) TAKE 4 TABLETS BY MOUTH EVERY 12 HOURS FOR 14 DAYS THEN OFF FOR 7 DAYS Chlorpheniramine Maleate 4 Mg Tablet, 4 MG PO DAILY, (Reported) Chlorpheniramine Maleate 4 Mg Tablet, 4 MG PO BID PRN for ALLERGIES, (Reported) Cholestyramine (with Sugar) 4 Gm Powd.pack, 4 GM PO twice a day Prescribed by: MARIAMA DIA on 12/12/18 1131 Clopidogrel Bisulfate 75 Mg Tablet, 75 MG PO DAILY Prescribed by: TAVON MELCHOR on 12/13/18 0708 Cyanocobalamin (Vitamin B-12) 1,000 Mcg Tablet, 1,000 MCG PO HS, (Reported) Ferrous Sulfate 325 Mg Tablet, 325 MG PO TID, (Reported) Fluticasone Propionate 9.9 Ml [place].susp, 2 [place] NS DAILY PRN for ALLERGIES, (Reported) Glipizide 10 Mg Tablet, 10 MG PO BID, (Reported) Levothyroxine Sodium 112 Mcg Tablet, 112 MCG PO DAILY, (Reported) Metformin HCl 1,000 Mg Tablet, 1,000 MG PO BID Hold metformin for 48 hours Prescribed by: TAVON MELCHOR on 12/13/18 0708 Metronidazole 45 Gm Cream..g., TP HS, (Reported) Ondansetron 8 Mg Tab.rapdis, 8 MG PO Q3H PRN for NAUSEA/VOMITING-1ST LINE, (Reported) Pantoprazole Sodium 40 Mg Tablet.dr, 40 MG PO HS, (Reported) Pimecrolimus 30 Gm Cream.gm., TP DAILY PRN for PSORIASIS, (Reported) Pioglitazone HCl 30 Mg Tablet, 30 MG PO HS, (Reported) Sitagliptin Phosphate 100 Mg Tablet, 100 MG PO DAILY, (Reported) Patient Home Medication List Home Medication List Reviewed: Yes Review of Systems Review of Systems Constitutional: see HPI EENTM: no symptoms reported Respiratory: no symptoms reported Cardiovascular: see HPI Gastrointestinal: see HPI Genitourinary: see HPI Musculoskeletal: no symptoms reported Skin: no symptoms reported Psychiatric/Neurological: No Symptoms Reported Hematologic/Lymphatic: No Symptoms Reported Past Rudojbm-Vkljbg-Kdgqej Hx Past Med/Social Hx: Reviewed Nursing Past Med/Soc Hx Patient Social History Alcohol Use: Denies Use Alcohol Beverage of Choice: [place] Recreational Drug Use: No Type Used: Cigarettes Former Smoker, Quit: Jul 04, 1980 2nd Hand Smoke Exposure: No Recent Foreign Travel: No Contact w/Someone Who Travel: No Recent Infectious Disease Expo: No Recent Hopitalizations: Yes (SEP 2018-[place] COLON/SURGERY) Immunizations Up To Date Tetanus Booster (TDap): Unknown Date of Pneumonia Vaccine: Jul 26, 2016 Date of Influenza Vaccine: May 04, 2018 Seasonal Allergies Seasonal Allergies: No Past Medical History Surgeries: Yes (BLADDER SURGERY-CANCER, COLON RESECTION ) Bowel Surgery, Cardiac, Coronary Stent Respiratory: Yes Pulmonary Embolism Currently Using CPAP: No Currently Using BIPAP: No Cardiac: Yes (stents in 1996, ANGIOPLASTY 06/2018) Coronary Artery Disease, High Cholesterol, Hypertension Neurological: No Sexually Transmitted Disease: No HIV/AIDS: No Genitourinary: Yes (bladder cancer in past) Bladder Infection Gastrointestinal: Yes (COLON CA) Musculoskeletal: No Endocrine: Yes Diabetes, Non-Insulin dep HEENT: Yes (GLASSES) Cataract Loss of Vision: Bilateral Hearing Impairment: Denies Cancer: Yes Bladder, Colon Did You Recieve Any Treatments: Yes What Type of Treatment Did You: Chemotherapy, Surgical Intervention Psychosocial: No Integumentary: Yes Psoriasis Blood Disorders: No (ANEMIA) Adverse Reaction/Blood Tranf: No (HAS HAD BLOOD WITH NO REACTION) Family Medical History CAD Over 55 Years Old Physical Exam Vital Signs Vital Signs - First Documented 01/16/19 13:00 Temp 97.6 Pulse 96 Resp 18 B/P (MAP) 119/63 (81) Pulse Ox 99 O2 Delivery Room Air Capillary Refill : Less Than 3 Seconds Height, Weight, BMI Height: 6'2.00" Weight: 215lbs. 0.0oz. 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 Norm as Tested Skin: Normal Color, Warm/Dry Focused Exam Lactate Level 01/16/19 13:22: Lactic Acid Level 2.92*H 01/16/19 15:00: Lactic Acid Level 2.20*H Lactic Acid Level Progress/Results/Core Measures Suspected Sepsis Recent Fever Within 48 Hours: No Infection Criteria Present: None New/Unexplained Altered Menta: No Sepsis Screen: No Definite Risk SIRS Temperature:97.6 Pulse: 96 Respiratory Rate: 18 Laboratory Tests 01/16/19 13:22: White Blood Count 5.3 Blood Pressure 119 /63 Mean: 81 01/16/19 13:22: Lactic Acid Level 2.92*H 01/16/19 15:00: Lactic Acid Level 2.20*H Laboratory Tests 01/16/19 13:22: Creatinine 1.24, INR Comment 1.1, Platelet Count 183, Total Bilirubin 0.5 Results/Orders Lab Results Laboratory Tests Test 01/16/19 13:22 01/16/19 15:00 01/16/19 15:15 01/16/19 15:53 Range/Units White Blood Count 5.3 4.3-11.0 10^3/uL Red Blood Count 4.15 L 4.35-5.85 10^6/uL Hemoglobin 11.2 L 13.3-17.7 G/DL Hematocrit 34 L 40-54 % Mean Corpuscular Volume 82 80-99 FL Mean Corpuscular Hemoglobin 27 25-34 PG Mean Corpuscular Hemoglobin Concent 33 32-36 G/DL Red Cell Distribution Width 22.9 H 10.0-14.5 % Platelet Count 183 130-400 10^3/uL Mean Platelet Volume 9.5 7.4-10.4 FL Neutrophils (%) (Auto) 66 42-75 % Lymphocytes (%) (Auto) 25 12-44 % Monocytes (%) (Auto) 8 0-12 % Eosinophils (%) (Auto) 1 0-10 % Basophils (%) (Auto) 0 0-10 % Neutrophils # (Auto) 3.5 1.8-7.8 X 10^3 Lymphocytes # (Auto) 1.3 1.0-4.0 X 10^3 Monocytes # (Auto) 0.4 0.0-1.0 X 10^3 Eosinophils # (Auto) 0.1 0.0-0.3 10^3/uL Basophils # (Auto) 0.0 0.0-0.1 10^3/uL Prothrombin Time 14.5 12.2-14.7 SEC INR Comment 1.1 0.8-1.4 Activated Partial Thromboplast Time 26 24-35 SEC Sodium Level 130 L 135-145 MMOL/L Potassium Level 3.6 3.6-5.0 MMOL/L Chloride Level 97 L 98-107 MMOL/L Carbon Dioxide Level 20 L 21-32 MMOL/L Anion Gap 13 5-14 MMOL/L Blood Urea Nitrogen 14 7-18 MG/DL Creatinine 1.24 0.60-1.30 MG/DL Estimat Glomerular Filtration Rate 58 BUN/Creatinine Ratio 11 Glucose Level 171 H 70-105 MG/DL Lactic Acid Level 2.92 *H 2.20 *H 0.50-2.00 MMOL/L Calcium Level 9.2 8.5-10.1 MG/DL Corrected Calcium 9.4 8.5-10.1 MG/DL Total Bilirubin 0.5 0.1-1.0 MG/DL Aspartate Amino Transf (AST/SGOT) 16 5-34 U/L Alanine Aminotransferase (ALT/SGPT) 11 0-55 U/L Alkaline Phosphatase 71 40-136 U/L C-Reactive Protein High Sensitivity 2.09 H 0.00-0.50 MG/DL Total Protein 7.0 6.4-8.2 GM/DL Albumin 3.8 3.2-4.5 GM/DL Lipase 32 8-78 U/L Glucometer 136 H 70-110 MG/DL Urine Color YELLOW Urine Clarity CLEAR Urine pH 5 5-9 Urine Specific [place] 1.015 L 1.016-1.022 Urine Protein 2+ H NEGATIVE Urine Glucose (UA) 3+ H NEGATIVE Urine Ketones 1+ H NEGATIVE Urine Nitrite NEGATIVE NEGATIVE Urine Bilirubin NEGATIVE NEGATIVE Urine Urobilinogen NORMAL NORMAL MG/DL Urine Leukocyte Esterase NEGATIVE NEGATIVE Urine RBC (Auto) NEGATIVE NEGATIVE Urine RBC NONE /HPF Urine WBC NONE /HPF Urine Crystals NONE /LPF Urine Bacteria TRACE /HPF Urine Casts NONE /LPF Urine Mucus NEGATIVE /LPF Urine Culture Indicated CULTURE PENDING My Orders Orders - MYA ADAMS MD Cbc With Automated Diff (01/16/19 13:06) Comprehensive Metabolic Panel (01/16/19 13:06) Ed Iv/Invasive Line Start (01/16/19 13:06) Ns Iv 1000 Ml (Sodium Chloride 0.9%) (01/16/19 13:06) Ondansetron Injection (Zofran Injectio (01/16/19 13:15) Blood Culture (01/16/19 13:28) Urinalysis (01/16/19 13:28) Urine Culture (01/16/19 13:28) Protime With Inr (01/16/19 13:28) Partial Thromboplastin Time (01/16/19 13:28) Chest 1 View, Ap/Pa Only (01/16/19 13:28) Ed Iv/Invasive Line Start (01/16/19 13:28) Vital Signs Adult Sepsis Patie Q15M (01/16/19 13:28) O2 (01/16/19 13:28) Remove Rings In Anticipation O (01/16/19 13:28) Lactic Acid Analyzer (01/16/19 13:28) Hs C Reactive Protein (01/16/19 13:28) Lipase (01/16/19 13:28) Ns Iv 1000 Ml (Sodium Chloride 0.9%) (01/16/19 14:18) Ct Abdomen/Pelvis W (01/16/19 15:53) Iohexol Injection (Omnipaque 350 Mg/Ml 1 (01/16/19 16:00) Received Contrast (Hold Metformin- Contr (01/16/19 16:00) Ns (Ivpb) (Sodium Chloride 0.9% Ivpb Bag (01/16/19 16:00) Ns Iv 1000 Ml (Sodium Chloride 0.9%) (01/16/19 18:30) Medications Given in ED Current Medications Medications Dose Ordered Sig/Rabia Route Start Time Stop Time Status Last Admin Dose Admin Ondansetron HCl 8 mg ONCE ONCE IVP 01/16/19 13:15 01/16/19 13:16 DC 01/16/19 13:42 8 MG Sodium Chloride 1,000 ml @ 0 mls/hr Q0M ONCE IV 01/16/19 13:06 01/16/19 13:08 DC 01/16/19 13:42 1,000 MLS/HR Sodium Chloride 1,000 ml @ 0 mls/hr Q0M ONCE IV 01/16/19 14:18 01/16/19 14:19 DC 01/16/19 15:04 1,000 MLS/HR Sodium Chloride 1,000 ml @ 0 mls/hr Q0M ONCE IV 01/16/19 18:30 01/16/19 18:31 DC 01/16/19 18:40 1,000 MLS/HR Vital Signs/I&O 01/16/19 01/16/19 01/16/19 01/16/19 13:00 13:34 13:34 18:57 Temp 97.6 97.6 97.6 97.6 Pulse 96 96 96 87 Resp 18 18 18 17 B/P (MAP) 119/63 (81) 119/63 119/63 (81) 117/71 (86) Pulse Ox 99 99 99 99 O2 Delivery Room Air Capillary Refill : Less Than 3 Seconds Blood Pressure Mean: 81 Point of Care Testing Finger Stick Blood Glucose: 136 Blood Glucose Action Taken: rn notified Progress Note #1: Time: 15:46 Progress Note Septic workup has been pursued. There does not appear to be any obvious source of infection. Patient's blood pressures have been stable since arriving. He has been unable to urinate. After 1 L of IV fluid a bladder scan was obtained which revealed 205 mL within the bladder. A second liter of IV fluid has now been infused and he will try to urinate again. He has some mild to moderate tenderness in the right mid abdomen. This pain, as well as the nausea, are new within the last 3 days. The intermittent episodes of hypotension and syncope are ongoing issues. I have reviewed findings and discussed the situation with the patient and his . We have decided to proceed with a CT scan to further assess his abdominal pain. Progress Note #2: Time: 18:[address] revealed some enteritis of the small bowel. Otherwise there were no acute issues to explain his abdominal pain. I suspect he is having either adverse effects of his medications or a viral gastroenteritis. Patient had a standing blood pressure in the 80s after 2 L of IV fluid. He was minimally symptomatic with this blood pressure. No evidence of bacterial infection was found on workup. Lactic acid elevation is likely secondary to hydration status and did improve after IV fluids. The stool specimen sent to lab by the Cancer Center was reviewed. It was negative for C. difficile and positive for Hemoccult blood. The patient's is strongly desiring admission for the patient. The patient himself is somewhat indifferent about admission. I discussed the case with Dr. Dempsey he does not believe there is much to be gained by admission. Most of his issues are chronic in nature. As an alternative, we will administer another liter of IV fluid and dismissed home. Diagnostic Imaging Diagonstic Imaging: Xray Plain Films/CT/US/NM/MRI: chest Comments Chest x-ray viewed by me and report reviewed. See report below: NAME: HETAL HERNANDEZ [facility] REC#: [id number] PT STATUS: REG ER : 1950 PHYSICIAN: MYA ADAMS MD ADMIT DATE: 01/16/19/ER Signed Date of Exam: 01/16/19 CHEST 1 VIEW, AP/PA ONLY INDICATION: Chest pain. EXAMINATION: Portable chest at 2:17 PM. FINDINGS: The right IJ Port-A-Cath tip projects over the SVC. The heart size and pulmonary vascularity are normal. The lungs are clear. There are no effusions or pneumothoraces. IMPRESSION: Negative chest. Dictated by: Dictated on workstation # [id number] Dict: 01/16/19 1430 Trans: 01/16/19 1532 Interpreted by: KYLE DÍAZ MD Electronically signed by: KYLE DÍAZ MD 01/16/19 1532 Diagonstic Imaging: CT Plain Films/CT/US/NM/MRI: abdomen, pelvis Comments CT abdomen and pelvis viewed by me and report reviewed. See report below: NAME: HETAL HERNANDEZ [facility] REC#: [id number] PT STATUS: REG ER : 1950 PHYSICIAN: MYA ADAMS MD ADMIT DATE: 01/16/19/ER Signed Date of Exam: 01/16/19 CT ABDOMEN/PELVIS W PROCEDURE: CT abdomen and pelvis with contrast. TECHNIQUE: Multiple contiguous axial images were obtained through the abdomen and pelvis after administration of intravenous contrast. Auto Exposure Controls were utilized during the CT exam to meet ALARA standards for radiation dose reduction. INDICATION: Abdominal pain with nausea and vomiting for five days. History of colon cancer. FINDINGS: There are mild fatty infiltrates of the liver. The gallbladder and bile ducts are normal. The spleen, pancreas, and adrenals are normal. There is a small right renal cyst present. There is a 2.8 cm left renal cyst present. There is no calculus or hydronephrosis seen on either side. The ureters and bladder are normal. There is mild mucosal thickening of several loops of nondilated nonobstructive small bowel seen in the upper abdomen. The ileum is normal. There are changes of prior surgery at the level of the hepatic flexure of the colon. There is no free intraperitoneal air or fluid. IMPRESSION: Several loops of mildly edematous jejunum, consistent with nonobstructive enteritis. No other acute abnormality is seen. Dictated by: Dictated on workstation # [id number] Dict: 01/16/19 172 Trans: 01/16/191733 Interpreted by: MARTINA BRITTON MD Electronically signed by: MARTINA BRITTON MD 01/16/191733 Departure Impression Primary Impression: Hypotension Qualified Codes: I95.0 - Idiopathic hypotension Additional Impressions: Generalized abdominal pain Nausea and vomiting Qualified Codes: R11.2 - Nausea with vomiting, unspecified Oliguria Colon cancer Qualified Codes: C18.9 - Malignant neoplasm of colon, unspecified Disposition: 01 HOME, SELF-CARE Condition: Improved Departure-Patient Inst. Decision time for Depature: 18:46 Referrals: EMIL RITTER MD (PCP/Family) Primary Care Physician Patient Instructions: Colon and Rectal Cancer Add. Discharge Instructions: Follow-up with your primary care provider, Dr. Melchor and Dr. Ordoñez with a phone call tomorrow morning. Continue your medications as previously prescribed. Use Zofran as prescribed for nausea or vomiting. Start with a clear liquid diet and gradually advance her diet with small quantities of bland food as tolerated. Return to care if you have worsening symptoms. All discharge instructions reviewed with patient and/or family. Voiced understanding. Copy Copies To 1: EMIL RITTER MD; NAHOMY ORDOÑEZ MD Copies To 2: TAVON MELCHOR MD, JOSHUA T MD Jan 16, 2019 15:39
[2019-01-16] MEDS ORDERED: IOHEXOL 350 MG/ML 100 ML (OMNIPAQUE 350) VIAL IV ONE (16:00)
[2019-01-16] MEDS ORDERED: HOLD METFORMIN - RECEIVED CONTRAST 20 ML VIAL IV SCH (16:00)
[2019-01-16] MEDS ORDERED: NS 100 ML (IVPB) BAG IV ONE (16:00)
[2019-01-16 16:02] LABS: BILIRUBIN,URINE NEGATIVE (NEGATIVE); CLARITY,URINE CLEAR; COLOR,URINE YELLOW; GLUCOSE, URINE (UA) 3+ (NEGATIVE); KETONES,URINE 1+ (NEGATIVE); LEUKOCYTE ESTERASE ,URINE NEGATIVE (NEGATIVE); NITRITE,URINE NEGATIVE (NEGATIVE); PH,URINE 5 (5-9); PROTEIN,URINE 2+ (NEGATIVE); UROBILINOGEN,URINE NORMAL (NORMAL)
[2019-01-16 16:24] LABS: BACTERIA,URINE TRACE /HPF
--- NOTE | 2019-01-16 17:31 | Diagnostic Imaging Report ---
PROCEDURE: CT abdomen and pelvis with contrast. TECHNIQUE: Multiple contiguous axial images were obtained through the abdomen and pelvis after administration of intravenous contrast. Auto Exposure Controls were utilized during the CT exam to meet ALARA standards for radiation dose reduction. INDICATION: Abdominal pain with nausea and vomiting for five days. History of colon cancer. FINDINGS: There are mild fatty infiltrates of the liver. The gallbladder and bile ducts are normal. The spleen, pancreas, and adrenals are normal. There is a small right renal cyst present. There is a 2.8 cm left renal cyst present. There is no calculus or hydronephrosis seen on either side. The ureters and bladder are normal. There is mild mucosal thickening of several loops of nondilated nonobstructive small bowel seen in the upper abdomen. The ileum is normal. There are changes of prior surgery at the level of the hepatic flexure of the colon. There is no free intraperitoneal air or fluid. IMPRESSION: Several loops of mildly edematous jejunum, consistent with nonobstructive enteritis. No other acute abnormality is seen. Dictated by: Dictated on workstation # [id number]
[2019-01-16 18:57] VITALS: BP 117/71
== END 2019-01-16 18:57 | disposition home or self-care (01) ==
LOC: EDUNIT# 12:57 → ER 12:57
DX: C18.9 Malignant neoplasm of colon, unspecified (principal); I95.9 Hypotension, unspecified; R34 Anuria and oliguria; R11.2 Nausea with vomiting, unspecified; R10.84 Generalized abdominal pain; I10 Essential (primary) hypertension; E78.00 Pure hypercholesterolemia, unspecified; I25.10 Atherosclerotic heart disease of native coronary artery without angina pectoris; E11.9 Type 2 diabetes mellitus without complications; Z86.711 Personal history of pulmonary embolism; Z79.82 Long term (current) use of aspirin; Z79.02 Long term (current) use of antithrombotics/antiplatelets; Z79.84 Long term (current) use of oral hypoglycemic drugs; Z87.891 Personal history of nicotine dependence; Z85.51 Personal history of malignant neoplasm of bladder; Z95.5 Presence of coronary angioplasty implant and graft; Z82.49 Family history of ischemic heart disease and other diseases of the circulatory system
CPT/HCPCS: 36415; 71045; 74177; 80053; 81000; 82962; 83605; 83690; 85025; 85610; 85730; 86141; 87040; 87088

== ENCOUNTER 2019-01-21 08:20 | Inpatient (IN) | payer MEDICARE ==
[~2019-01-21] VITALS: Ht 190.5 cm; Wt 89.4 kg
--- NOTE | 2019-01-21 08:41 | ED General ---
General Chief Complaint: Cardiac/General Problems Stated Complaint: BP 65/54 Source of Information: Patient, Family, Old Records, RN Notes Reviewed Exam Limitations: No Limitations History of Present Illness Date Seen by Provider: Jan 21, 2019 Time Seen by Provider: 08:41 Initial Comments Patient presents along c/ his c/ c/o his BP being low (63/44), and feeling lightheaded when standing. Similar symptoms last week and was seen in [facility] ED where he received 3 liters of fluid and was then discharged. States he did feel better the next day but has slowly redevelop his symptoms again. States he did have some diarrhea x 2 days, but thinks it has resolved. (+) hx of colon resection in September by Dr. Osorio for colon cancer and just completed his chemo approximately a week ago. Timing/Duration: 4-5 Days Severity: Moderate Modifying Factors: improves with Other (position ) Associated Systoms: Denies Symptoms Allergies and Home Medications Allergies Coded Allergies: No Known Drug Allergies (Unverified , 11/15/18) Home Medications Aspirin 81 Mg Tablet.dr, 81 MG PO DAILY, (Reported) Atorvastatin Calcium 40 Mg Tablet, 40 MG PO HS, (Reported) Azelaic Acid 50 Gm Gel..gram., TP DAILY, (Reported) Capecitabine 500 Mg Tablet, PO UD, (Reported) TAKE 4 TABLETS BY MOUTH EVERY 12 HOURS FOR 14 DAYS THEN OFF FOR 7 DAYS Chlorpheniramine Maleate 4 Mg Tablet, 4 MG PO DAILY, (Reported) Chlorpheniramine Maleate 4 Mg Tablet, 4 MG PO BID PRN for ALLERGIES, (Reported) Cholestyramine (with Sugar) 4 Gm Powd.pack, 4 GM PO twice a day Prescribed by: AMRIAMA DIA on 12/12/18 1131 Clopidogrel Bisulfate 75 Mg Tablet, 75 MG PO DAILY Prescribed by: TAVON SUGGS on 12/13/18 0708 Cyanocobalamin (Vitamin B-12) 1,000 Mcg Tablet, 1,000 MCG PO HS, (Reported) Ferrous Sulfate 325 Mg Tablet, 325 MG PO TID, (Reported) Fluticasone Propionate 9.9 Ml [place].susp, 2 SPRAY NS DAILY PRN for ALLERGIES, (Reported) Glipizide 10 Mg Tablet, 10 MG PO BID, (Reported) Levothyroxine Sodium 112 Mcg Tablet, 112 MCG PO DAILY, (Reported) Metformin HCl 1,000 Mg Tablet, 1,000 MG PO BID Hold metformin for 48 hours Prescribed by: TAVON SUGGS on 12/13/18 0708 Metronidazole 45 Gm Cream..g., TP HS, (Reported) Ondansetron 8 Mg Tab.rapdis, 8 MG PO Q3H PRN for NAUSEA/VOMITING-1ST LINE, (Reported) Pantoprazole Sodium 40 Mg Tablet.dr, 40 MG PO HS, (Reported) Pimecrolimus 30 Gm Cream.gm., TP DAILY PRN for PSORIASIS, (Reported) Pioglitazone HCl 30 Mg Tablet, 30 MG PO HS, (Reported) Sitagliptin Phosphate 100 Mg Tablet, 100 MG PO DAILY, (Reported) Patient Home Medication List Home Medication List Reviewed: Yes Review of Systems Review of Systems Constitutional: see HPI, other (lightheaded when standing; BP low @ home.) Hematologic/Lymphatic: See HPI, Anemia All Other Systems Reviewed Negative Unless Noted: Yes (Negative excepted noted.) Past Pvyxfgf-Kglmcv-Chdlpy Hx Patient Social History Alcohol Beverage of Choice: [place] Type Used: Cigarettes Former Smoker, Quit: Jul 04, 1980 2nd Hand Smoke Exposure: No Recent Hopitalizations: Yes (SEP 2018-[place] COLON/SURGERY) Immunizations Up To Date Tetanus Booster (TDap): Unknown Date of Pneumonia Vaccine: Jul 26, 2016 Date of Influenza Vaccine: May 04, 2018 Seasonal Allergies Seasonal Allergies: No Past Medical History Surgeries: Yes (BLADDER SURGERY-CANCER, COLON RESECTION ) Bowel Surgery, Cardiac, Coronary Stent Respiratory: Yes Pulmonary Embolism Currently Using CPAP: No Currently Using BIPAP: No Cardiac: Yes (stents in 1996, ANGIOPLASTY 06/2018) Coronary Artery Disease, High Cholesterol, Hypertension Neurological: No Sexually Transmitted Disease: No HIV/AIDS: No Genitourinary: Yes (bladder cancer in past) Bladder Infection Gastrointestinal: Yes (COLON CA) Musculoskeletal: No Endocrine: Yes Diabetes, Non-Insulin dep HEENT: Yes (GLASSES) Cataract Loss of Vision: Bilateral Hearing Impairment: Denies Cancer: Yes Bladder, Colon Did You Recieve Any Treatments: Yes What Type of Treatment Did You: Chemotherapy, Surgical Intervention Psychosocial: No Integumentary: Yes Psoriasis Blood Disorders: No (ANEMIA) Adverse Reaction/Blood Tranf: No (HAS HAD BLOOD WITH NO REACTION) Family Medical History CAD Over 55 Years Old Physical Exam Vital Signs Vital Signs - First Documented 701/21/19 01/21/19 01/21/19 08:24 11:44 13:32 13:40 Temp 97.9 Pulse 98 Resp 18 B/P (MAP) 100/59 (73) Pulse Ox 98 O2 Delivery Room Air O2 Flow Rate 0.00 Capillary Refill : Height, Weight, BMI Height: 6'2.00" Weight: 215lbs. 0.0oz. 97.293998qo; 26.1 BMI Method:Stated General Appearance: No Apparent Distress, WD/WN Respiratory: No Respiratory Distress Cardiovascular: Regular Rate, Rhythm Rectal: Deferred Neurologic/Psychiatric: Alert, Oriented x3, No Motor/Sensory Deficits, Normal Mood/Affect Skin: Warm/Dry Progress/Results/Core Measures Suspected Sepsis SIRS Temperature: Pulse: Respiratory Rate: Laboratory Tests 01/21/19 08:54: White Blood Count 5.5 Blood Pressure / Mean: Laboratory Tests 01/21/19 08:54: Creatinine 0.97, Platelet Count 177, Total Bilirubin 0.3 Results/Orders Lab Results Laboratory Tests Test 01/21/19 08:54 01/21/19 11:06 Range/Units White Blood Count 5.5 4.3-11.0 10^3/uL Red Blood Count 3.39 L 4.35-5.85 10^6/uL Hemoglobin 9.5 L 13.3-17.7 G/DL Hematocrit 29 L 40-54 % Mean Corpuscular Volume 85 80-99 FL Mean Corpuscular Hemoglobin 28 25-34 PG Mean Corpuscular Hemoglobin Concent 33 32-36 G/DL Red Cell Distribution Width 22.8 H 10.0-14.5 % Platelet Count 177 130-400 10^3/uL Mean Platelet Volume 8.8 7.4-10.4 FL Neutrophils (%) (Auto) 47 42-75 % Lymphocytes (%) (Auto) 40 12-44 % Monocytes (%) (Auto) 11 0-12 % Eosinophils (%) (Auto) 2 0-10 % Basophils (%) (Auto) 0 0-10 % Neutrophils # (Auto) 2.5 1.8-7.8 X 10^3 Lymphocytes # (Auto) 2.2 1.0-4.0 X 10^3 Monocytes # (Auto) 0.6 0.0-1.0 X 10^3 Eosinophils # (Auto) 0.1 0.0-0.3 10^3/uL Basophils # (Auto) 0.0 0.0-0.1 10^3/uL Sodium Level 133 L 135-145 MMOL/L Potassium Level 3.2 L 3.6-5.0 MMOL/L Chloride Level 96 L 98-107 MMOL/L Carbon Dioxide Level 22 21-32 MMOL/L Anion Gap 15 H 5-14 MMOL/L Blood Urea Nitrogen 6 L 7-18 MG/DL Creatinine 0.97 0.60-1.30 MG/DL Estimat Glomerular Filtration Rate > 60 BUN/Creatinine Ratio 6 Glucose Level 148 H 70-105 MG/DL Calcium Level 8.4 L 8.5-10.1 MG/DL Corrected Calcium 9.0 8.5-10.1 MG/DL Total Bilirubin 0.3 0.1-1.0 MG/DL Aspartate Amino Transf (AST/SGOT) 14 5-34 U/L Alanine Aminotransferase (ALT/SGPT) 10 0-55 U/L Alkaline Phosphatase 68 40-136 U/L Total Protein 6.1 L 6.4-8.2 GM/DL Albumin 3.3 3.2-4.5 GM/DL Urine Color YELLOW Urine Clarity CLEAR Urine pH 6.5 5-9 Urine Specific [place] <=1.005 1.016-1.022 Urine Protein NEGATIVE NEGATIVE Urine Glucose (UA) 1+ H NEGATIVE Urine Ketones NEGATIVE NEGATIVE Urine Nitrite NEGATIVE NEGATIVE Urine Bilirubin NEGATIVE NEGATIVE Urine Urobilinogen 0.2 NORMAL MG/DL Urine Leukocyte Esterase NEGATIVE NEGATIVE Urine RBC (Auto) NEGATIVE NEGATIVE Urine RBC NONE /HPF Urine WBC 2-5 /HPF Urine Squamous Epithelial Cells 0-2 /HPF Urine Crystals NONE /LPF Urine Bacteria NEGATIVE /HPF Urine Casts PRESENT /LPF Urine Hyaline Casts 2-5 H /LPF Urine Mucus SMALL H /LPF Urine Culture Indicated NO My Orders Orders - ALBERTO KNOTT DO Ed Iv/Invasive Line Start (01/21/19 08:47) Orthostatic Vital Signs (Adult (01/21/19 08:47) Cbc With Automated Diff (01/21/19 08:47) Comprehensive Metabolic Panel (01/21/19 08:47) Ua Culture If Indicated (01/21/19 08:47) Lactated Ringers (Lr 1000 Ml Iv Solution (01/21/19 09:00) Potassium Chloride (Tablet) (K Dur Table (01/21/19 09:45) Ns Iv 1000 Ml (Sodium Chloride 0.9%) (01/21/19 09:45) Medications Given in ED Current Medications Medications Dose Ordered Sig/Rabia Route Start Time Stop Time Status Last Admin Dose Admin Potassium Chloride 40 meq ONCE ONCE PO 01/21/19 09:45 01/21/19 09:46 DC 01/21/19 10:54 40 MEQ Vital Signs/I&O 01/21/19 01/21/19 01/21/19 01/21/19 08:24 08:48 11:44 11:57 Temp 97.9 Pulse 98 90 76 76 98 78 113 75 Resp 18 16 B/P (MAP) 100/59 (73) 105/64 (78) 134/63 (86) 123/67 (85) 96/60 (72) 148/88 (108) 66/51 (56) 127/68 (87) Pulse Ox 98 01/21/19 01/21/19 13:32 13:40 Temp 97.6 Pulse 68 Resp 20 B/P (MAP) 152/72 Pulse Ox 100 O2 Delivery Room Air Room Air O2 Flow Rate 0.00 Capillary Refill : Progress Note : Progress Note Symptoms have improved c/ fluids. Discussed patient c/ Dr. Osorio and he recommended admitting him for observation and possible EGD. Departure Impression Primary Impression: Orthostatic hypotension Additional Impressions: Anemia Hyponatremia Hypokalemia Hx of colon resection of colon cancer Disposition: ADMITTED INPATIENT Condition: Stable Admissions Decision to Admit Reason: Admit from ER (General) Decision to Admit/Date: Jan 21, 2019 Time/Decision to Admit Time: 11:00 Transfer Time Spoke to Accepting Phy: 11:00 Transfer Progress Notes Discussed patient c/ both Dr. Osorio and Dr. Real. Will transfer and admit for further evaluation. Transfer Facility: [facility] Method of Transfer: EMS Departure-Patient Inst. Referrals: EMIL RITTER MD (PCP/Family) Primary Care Physician ALBERTO KNOTT DO Jan 21, 2019 08:41
[2019-01-21 08:48] VITALS: BP_SYST 105; BP_SYST 66; BP_SYST 96; BP_DIAS 51; BP_DIAS 60; BP_DIAS 64
--- NOTE | 2019-01-21 08:54 | NUR ---
Placement 22 ga 1 in [place] non core needle (NOT Powerport) to a Right sided [place] Power Port specific per card presented by pt. Labs drawn and port flushed easily.
[2019-01-21] MEDS ORDERED: LACTATED RINGERS 1,000 ML IV SCH (09:00)
[2019-01-21 09:13] LABS: BASOPHILS % (AUTO) 0 % (0-10); EOSINOPHILS % (AUTO) 2 % (0-10); HEMATOCRIT 29 % (40-54); HEMOGLOBIN 9.5 G/DL (13.3-17.7); LYMPHOCYTES % (AUTO) 40 % (12-44); MEAN CORPUSCULAR HEMOGLOBIN 28 PG (25-34); MEAN CORPUSCULAR HGB CONC 33 G/DL (32-36); MEAN CORPUSCULAR VOLUME 85 FL (80-99); MEAN PLATELET VOLUME 8.8 FL (7.4-10.4); MONOCYTES % (AUTO) 11 % (0-12); PLATELET COUNT 177 10^3/uL (130-400); RED CELL DISTRIBUTION WIDTH 22.8 % (10.0-14.5); WHITE BLOOD COUNT 5.5 10^3/uL (4.3-11.0)
[2019-01-21 09:14] LABS: EOSINOPHILS # (AUTO) 0.1 10^3/uL (0.0-0.3); LYMPHOCYTES # (AUTO) 2.2 X 10^3 (1.0-4.0); MONOCYTES # (AUTO) 0.6 X 10^3 (0.0-1.0); NEUTROPHILS # (AUTO) 2.5 X 10^3 (1.8-7.8); NEUTROPHILS % (AUTO) 47 % (42-75)
[2019-01-21 09:29] LABS: CHLORIDE 96 MMOL/L (98-107); POTASSIUM 3.2 MMOL/L (3.6-5.0); SODIUM 133 MMOL/L (135-145)
[2019-01-21 09:30] LABS: ALANINE AMINOTRANSFERASE 10 U/L (0-55); ALBUMIN 3.3 GM/DL (3.2-4.5); ALKALINE PHOSPHATASE 68 U/L (40-136); BILIRUBIN,TOTAL 0.3 MG/DL (0.1-1.0); BUN/CREATININE RATIO 6; CALCIUM 8.4 MG/DL (8.5-10.1); CARBON DIOXIDE 22 MMOL/L (21-32); CREATININE SERUM 0.97 MG/DL (0.60-1.30); GFR ESTIMATED > 60; GLUCOSE 148 MG/DL (70-105); TOTAL PROTEIN 6.1 GM/DL (6.4-8.2)
[2019-01-21] MEDS ORDERED: KCL 20 MEQ TAB (K-DUR) PO ONE (09:45)
[2019-01-21] MEDS: NS IV 1000 ML 1,000 ML IV SCH ×6 (11:02→15:39)
[2019-01-21 11:20] LABS: CLARITY,URINE CLEAR; COLOR,URINE YELLOW; PH,URINE 6.5 (5-9)
[2019-01-21 11:21] LABS: BACTERIA,URINE NEGATIVE /HPF; BILIRUBIN,URINE NEGATIVE (NEGATIVE); GLUCOSE, URINE (UA) 1+ (NEGATIVE); KETONES,URINE NEGATIVE (NEGATIVE); LEUKOCYTE ESTERASE ,URINE NEGATIVE (NEGATIVE); NITRITE,URINE NEGATIVE (NEGATIVE); PROTEIN,URINE NEGATIVE (NEGATIVE); SQUAMOUS EPITHELIAL CELL,UR 0-2 /HPF; UROBILINOGEN,URINE 0.2 MG/DL (NORMAL)
[2019-01-21 11:57] VITALS: BP_SYST 123; BP_SYST 127; BP_SYST 148; BP_DIAS 67; BP_DIAS 68; BP_DIAS 88
--- NOTE | 2019-01-21 12:22 | NUR ---
patient transferred via [facility] to [facility] room 402 at this time. Report given to Skyler structural biologist.
--- NOTE | 2019-01-21 13:20 | NUR ---
HETAL HERNANDEZ admitted to room 402-1, with an admitting diagnosis of orthostatic hypotension, on 01/21/19 from [facility] , accompanied by EMS staff .HETAL HERNANDEZ introduced to surroundings, call light, bed controls, phone, TV, temperature control, lights, meal times, smoking policy, visitor policy, side rail policy, bathrooms and showers. Patient Rights given to patient in the handbook. HETAL HERNANDEZ verbalizes understanding that [facility] is not responsible for the loss or damage to any personal effects or valuables that are kept in the patients posession during their hospitalization. The following Patient Care Plans and discharge plans were discussed with the patient. HETAL HERNANDEZ verbalizes understanding of Interdisciplinary Patient Education. Patient informed about the Rapid Response Team and its purpose.
[2019-01-21 13:40] VITALS: BP 152/72
[2019-01-21] MEDS ORDERED: CATHETER FLUSH 10 ML SYR IV PRN ×2 (15:15)
[2019-01-21] MEDS ORDERED: LEVO500T80 PO (16:30)
[2019-01-21] MEDS ORDERED: PANT40TA3 PO (16:30)
[2019-01-21] MEDS ORDERED: CLOP75TA69 PO (16:30)
[2019-01-21] MEDS ORDERED: LACT1CAP72 PO (16:30)
[2019-01-21] MEDS ORDERED: METF-399 PO (16:30)
--- NOTE | 2019-01-21 16:32 | NUR ---
PATIENT HAD A DETAILED MEDICATION LIST, I WENT OVER THAT LIST WITH HIM AND HE VERIFIED HOW HE TAKES EACH MEDICATION. THE LIST IS ON THE CHART.
[2019-01-21 16:47] VITALS: BP_SYST 124; BP_SYST 145; BP_SYST 148; BP_DIAS 58; BP_DIAS 69; BP_DIAS 70
[2019-01-21 20:33] VITALS: BP_SYST 113; BP_SYST 118; BP_SYST 95; BP_DIAS 51; BP_DIAS 59; BP_DIAS 60
--- NOTE | 2019-01-21 21:44 | Consultation - Surgery ---
History of Present Illness History of Present Illness Patient Consulted On(jim/time) 01/21/19 21:38 Date Seen by Provider: Jan 21, 2019 Time Seen by Provider: 17:00 History of Present Illness Consult requested by Dr. Real for hypotension, anemia, history colon cancer Patient is a 68 year old male with history of colon cancer and undergoing chemotherapy. He has been having issues with hypotension, positional. Get dizziness. Can resolve on its own by giving time. He checks his blood pressure and systolic will drop into the 60's. He also reports having some diarrhea stools. Usually when this happens, but not all the time. He denies seeing any gross blood in stools. Patient reports also couple weeks ago having some nausea and an episode of emesis, which he tool Zofran which had helped at home. He has had a gradual decrease in his level of hgb which has been monitored outpatient. Patient was evaluated in the emergency dept in [place] and transferred for admission. Allergies and Home Medications Allergies Coded Allergies: No Known Drug Allergies (Unverified , 11/15/18) Home Medications Aspirin 81 Mg Tablet.dr, 81 MG PO DAILY, (Reported) Atorvastatin Calcium 40 Mg Tablet, 40 MG PO HS, (Reported) Azelaic Acid 50 Gm Gel..gram., TP DAILY, (Reported) Capecitabine 500 Mg Tablet, PO UD, (Reported) TAKE 4 TABLETS BY MOUTH EVERY 12 HOURS FOR 14 DAYS THEN OFF FOR 7 DAYS Chlorpheniramine Maleate 4 Mg Tablet, 4 MG PO DAILY, (Reported) Chlorpheniramine Maleate 4 Mg Tablet, 4 MG PO BID PRN for ALLERGIES, (Reported) Clopidogrel Bisulfate 75 Mg Tablet, 75 MG PO HS, (Reported) Cyanocobalamin (Vitamin B-12) 1,000 Mcg Tablet, 1,000 MCG PO HS, (Reported) Ferrous Sulfate 325 Mg Tablet, 325 MG PO TID, (Reported) Fluticasone Propionate 9.9 Ml [place].susp, 2 SPRAY NS DAILY PRN for ALLERGIES, (Reported) Glipizide 10 Mg Tablet, 10 MG PO BID, (Reported) Lactobacillus Combo No.10 1 Each Capsule, 1 CAP PO DAILY, (Reported) Levothyroxine Sodium 112 Mcg Tablet, 112 MCG PO DAILY, (Reported) Metformin HCl 1,000 Mg Tablet, 1,000 MG PO BID, (Reported) Metronidazole 45 Gm Cream..g., TP HS, (Reported) Ondansetron 8 Mg Tab.rapdis, 8 MG PO Q3H PRN for NAUSEA/VOMITING-1ST LINE, (Reported) Pantoprazole Sodium 40 Mg Tablet.dr, 40 MG PO HS, (Reported) Pimecrolimus 30 Gm Cream.gm., TP DAILY PRN for PSORIASIS, (Reported) Pioglitazone HCl 30 Mg Tablet, 30 MG PO HS, (Reported) Sitagliptin Phosphate 100 Mg Tablet, 100 MG PO DAILY, (Reported) Patient Home Medication List Home Medication List Reviewed: Yes Past Jcxkmlh-Zuudkg-Omfnrh Hx Patient Social History Alcohol Use: Denies Use Number of Drinks Today: BB Recreational Drug Use: No Smoking Status: Former Smoker Former Smoker, Quit: Jul 04, 1980 Type Used: Cigarettes 2nd Hand Smoke Exposure: No Recent Foreign Travel: No Contact w/Someone Who Travel: No Recent Infectious Disease Expo: No Recent Hopitalizations: Yes (SEP 2018-[place] COLON/SURGERY) Physical Abuse Screen: No Sexual Abuse: No Immunizations Up To Date Tetanus Booster (TDap): Unknown Date of Pneumonia Vaccine: Jul 26, 2016 Date of Influenza Vaccine: May 04, 2018 Seasonal Allergies Seasonal Allergies: No Surgeries History of Surgeries: Yes (BLADDER SURGERY-CANCER, COLON RESECTION ) Surgeries: Bowel Surgery, Cardiac, Coronary Stent Respiratory History of Respiratory Disorde: Yes Respiratory Disorders: Pulmonary Embolism Cardiovascular History of Cardiac Disorders: Yes (stents in 1996, ANGIOPLASTY 06/2018) Cardiac Disorders: Coronary Artery Disease, High Cholesterol, Hypertension Neurological History of Neurological Disord: No Reproductive System Sexually Transmitted Disease: No HIV/AIDS: No Genitourinary History of Genitourinary Disor: Yes (bladder cancer in past) Genitourinary Disorders: Bladder Infection Gastrointestinal History of Gastrointestinal Di: Yes (COLON CA) Gastrointestinal Disorders: Gastrointestinal Bleed Musculoskeletal History of Musculoskeletal Dis: No Endocrine History of Endocrine Disorders: Yes Endocrine Disorders: Diabetes, Non-Insulin dep HEENT History of HEENT Disorders: Yes (GLASSES) HEENT Disorders: Cataract Loss of Vision: Bilateral Hearing Impairment: Denies Cancer History of Cancer: Yes Cancer: Bladder, Colon Psychosocial History of Psychiatric Problem: No Integumentary History of Skin or Integumenta: Yes Skin/Integumentary Disorders: Psoriasis Blood Transfusions 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) Adverse Reaction to a Blood Tr: No (HAS HAD BLOOD WITH NO REACTION) Family Medical History Significant Family History: CAD Over 55 Years Old Family Medial History: Abdominal aortic aneurysm Cardiovascular disease Cataracts Colon cancer Diabetes mellitus Glaucoma Hypertension Myocardial infarction Respiratory disorder Thyroid disease Visual disorder Review of Systems-General Constitutional: see HPI EENTM: no symptoms reported Respiratory: no symptoms reported Cardiovascular: see HPI Gastrointestinal: see HPI Genitourinary: no symptoms reported Musculoskeletal: no symptoms reported Skin: no symptoms reported Psychiatric/Neurological: No Symptoms Reported Physical Exam-General Problems Physical Exam Vital Signs Vital Signs - First Documented 01/21/19 01/21/19 01/21/19 01/21/19 08:24 11:44 13:32 13:40 Temp 97.9 Pulse 98 Resp 18 B/P (MAP) 100/59 (73) Pulse Ox 98 O2 Delivery Room Air O2 Flow Rate 0.00 Capillary Refill : Less Than 3 Seconds General Appearance: WD/WN, no apparent distress HEENT: PERRL/EOMI, normal ENT inspection Neck: full range of motion, supple, normal inspection Respiratory: chest non-tender, no respiratory distress, no accessory muscle use Cardiovascular: regular rate, rhythm Gastrointestinal: non tender, soft, no organomegaly, no pulsatile mass Rectal: deferred Back: normal inspection, no CVA tenderness, no vertebral tenderness Extremities: non-tender, normal inspection, no pedal edema Neurologic/Psychiatric: supervisor cellars II-XII nml as tested, no motor/sensory deficits, alert, normal mood/affect, oriented x 3 Skin: normal color, warm/dry Lymphatic: no adenopathy Data Review Labs Laboratory Tests 01/21/19 08:54: White Blood Count 5.5, Red Blood Count 3.39L, Hemoglobin 9.5L, Hematocrit 29L, Mean Corpuscular Volume 85, Mean Corpuscular Hemoglobin 28, Mean Corpuscular Hemoglobin Concent 33, Red Cell Distribution Width 22.8H, Platelet Count 177, Mean Platelet Volume 8.8, Neutrophils (%) (Auto) 47, Lymphocytes (%) (Auto) 40, Monocytes (%) (Auto) 11, Eosinophils (%) (Auto) 2, Basophils (%) (Auto) 0, Neutrophils # (Auto) 2.5, Lymphocytes # (Auto) 2.2, Monocytes # (Auto) 0.6, Eosinophils # (Auto) 0.1, Basophils # (Auto) 0.0, Sodium Level 133L, Potassium Level 3.2L, Chloride Level 96L, Carbon Dioxide Level 22, Anion Gap 15H, Blood Urea Nitrogen 6L, Creatinine 0.97, Estimat Glomerular Filtration Rate > 60, BUN/Creatinine Ratio 6, Glucose Level 148H, Calcium Level 8.4L, Corrected Calcium 9.0, Total Bilirubin 0.3, Aspartate Amino Transf (AST/SGOT) 14, Alanine Aminotransferase (ALT/SGPT) 10, Alkaline Phosphatase 68, Total Protein 6.1L, Albumin 3.3 01/21/19 11:06: Urine Color YELLOW, Urine Clarity CLEAR, Urine pH 6.5, Urine Specific [place] <=1.005, Urine Protein NEGATIVE, Urine Glucose (UA) 1+H, Urine Ketones NEGATIVE, Urine Nitrite NEGATIVE, Urine Bilirubin NEGATIVE, Urine Urobilinogen 0.2, Urine Leukocyte Esterase NEGATIVE, Urine RBC (Auto) NEGATIVE, Urine RBC NONE, Urine WBC 2-5, Urine Squamous Epithelial Cells 0-2, Urine Crystals NONE, Urine Bacteria NEGATIVE, Urine Casts PRESENT, Urine Hyaline Casts 2-5H, Urine Mucus SMALLH, Urine Culture Indicated NO Assessment/Plan Assessment/Plan Assessment/Plan Hypotension Anemia History of colon cancer Current chemotherapy for colon cancer Diarrhea Antiplatelet therapy after stent placement Patient with recent episodes of diarrhea and found to have blood pressures 60 systolic. Since being admitted this has improved after fluids. His hgb has dropped some with recent hgb drawn in 10 range. He does not see any hi blood in stools. At this time would keep with conservative measures. Follow labs and transfuse if needed. Clear liquid diet. He is on antiplatelet therapy so would hold off at this time for any endoscopy unless urgent to do so. Started on Protonix BID. Will follow no surgical intervention at this time. Clinical Quality Measures DVT/VTE Risk/Contraindication: Risk Factor Score Per Nursin RFS Level Per Nursing on Admit: 4+=Very High SRIKANTH AGUILAR DO Jan 21, 2019 21:44
[2019-01-21] MEDS: PANTOPRAZOLE 40 MG (PROTONIX) VIAL IV SCH (23:01)
[2019-01-21 23:38] VITALS: BP_SYST 100; BP_SYST 63; BP_SYST 88; BP_DIAS 37; BP_DIAS 52; BP_DIAS 60
[2019-01-22] VITALS (10 sets, daily range): BP systolic 63–133; BP diastolic 37–74
[2019-01-22] MEDS: NS IV 1000 ML 1,000 ML IV SCH ×4 (02:29→22:48)
[2019-01-22 05:44] LABS: HEMOGLOBIN 8.5 G/DL (13.3-17.7); MEAN PLATELET VOLUME 8.9 FL (7.4-10.4); RED CELL DISTRIBUTION WIDTH 22.9 % (10.0-14.5); WHITE BLOOD COUNT 4.4 10^3/uL (4.3-11.0)
[2019-01-22 06:08] LABS: ALANINE AMINOTRANSFERASE 13 U/L (0-55); ALBUMIN 2.8 GM/DL (3.2-4.5); ALKALINE PHOSPHATASE 59 U/L (40-136); BILIRUBIN,TOTAL 0.2 MG/DL (0.1-1.0); BUN/CREATININE RATIO 6; CARBON DIOXIDE 22 MMOL/L (21-32); CHLORIDE 106 MMOL/L (98-107); CREATININE SERUM 0.85 MG/DL (0.60-1.30); GFR ESTIMATED > 60; GLUCOSE 111 MG/DL (70-105); POTASSIUM 3.5 MMOL/L (3.6-5.0); SODIUM 137 MMOL/L (135-145)
[2019-01-22] MEDS ORDERED: MAGNESIUM 1 GM/100 ML IVPB 200 ML IV ONE (06:30)
[2019-01-22] MEDS: MAGNESIUM 1 GM/100 ML IVPB 100 ML IV SCH ×4 (06:47→17:49)
[2019-01-22] MEDS: PANTOPRAZOLE 40 MG (PROTONIX) VIAL IV SCH ×2 (08:32→21:41)
[2019-01-22] MEDS ORDERED: KCL 20 MEQ TAB (K-DUR) PO NR (09:43)
--- NOTE | 2019-01-22 12:45 | Consultation-Cardiology ---
HPI-Cardiology Cardiology Consultation: Date of Consultation 01/22/19 Date of Admission 01-21-19 Attending Physician Lolly Real MD Admitting Physician Hans Farmer MD Consulting Physician Daniel Calix MD Primary Lead Systems Engineer: Dr. Melchor HPI: Chief Complaint: Hypotension Review of Systems-Cardiology All Other Systems Reviewed Negative Unless Noted: Yes (Negative excepted noted.) [id number] Hx Patient Social History Alcohol Use: Denies Use Recreational Drug Use: No Smoking Status: Former Smoker Type Used: Cigarettes 2nd Hand Smoke Exposure: No Recent Foreign Travel: No Recent Infectious Disease Expo: No Physical Abuse Screen: No Sexual Abuse: No Immunizations Up To Date Tetanus Booster (TDap): Unknown Date of Pneumonia Vaccine: Jul 26, 2016 Date of Influenza Vaccine: May 04, 2018 Past Medical History PMH As described under Assessment. Family Medical History Family History: Abdominal aortic aneurysm Cardiovascular disease Cataracts Colon cancer Diabetes mellitus Glaucoma Hypertension Myocardial infarction Respiratory disorder Thyroid disease Visual disorder Allergies and Home Medications Allergies Coded Allergies: No Known Drug Allergies (Unverified , 11/15/18) Home Medications Aspirin 81 Mg Tablet.dr, 81 MG PO DAILY, (Reported) Atorvastatin Calcium 40 Mg Tablet, 40 MG PO HS, (Reported) Azelaic Acid 50 Gm Gel..gram., TP DAILY, (Reported) Capecitabine 500 Mg Tablet, PO UD, (Reported) TAKE 4 TABLETS BY MOUTH EVERY 12 HOURS FOR 14 DAYS THEN OFF FOR 7 DAYS Chlorpheniramine Maleate 4 Mg Tablet, 4 MG PO DAILY, (Reported) Chlorpheniramine Maleate 4 Mg Tablet, 4 MG PO BID PRN for ALLERGIES, (Reported) Clopidogrel Bisulfate 75 Mg Tablet, 75 MG PO HS, (Reported) Cyanocobalamin (Vitamin B-12) 1,000 Mcg Tablet, 1,000 MCG PO HS, (Reported) Ferrous Sulfate 325 Mg Tablet, 325 MG PO TID, (Reported) Fluticasone Propionate 9.9 Ml [place].susp, 2 SPRAY NS DAILY PRN for ALLERGIES, (Reported) Glipizide 10 Mg Tablet, 10 MG PO BID, (Reported) Lactobacillus Combo No.10 1 Each Capsule, 1 CAP PO DAILY, (Reported) Levothyroxine Sodium 112 Mcg Tablet, 112 MCG PO DAILY, (Reported) Metformin HCl 1,000 Mg Tablet, 1,000 MG PO BID, (Reported) Metronidazole 45 Gm Cream..g., TP HS, (Reported) Ondansetron 8 Mg Tab.rapdis, 8 MG PO Q3H PRN for NAUSEA/VOMITING-1ST LINE, (Reported) Pantoprazole Sodium 40 Mg Tablet.dr, 40 MG PO HS, (Reported) Pimecrolimus 30 Gm Cream.gm., TP DAILY PRN for PSORIASIS, (Reported) Pioglitazone HCl 30 Mg Tablet, 30 MG PO HS, (Reported) Sitagliptin Phosphate 100 Mg Tablet, 100 MG PO DAILY, (Reported) Physical Exam-Cardiology Physical Exam Vital Signs/I&O 01/23/19 01/23/19 01/24/19 01/24/19:19 20: 00:00 00:00 Temp 97.3 97.8 Pulse 90 90 92 97 97 Resp 20 20 B/P (MAP) 163/80 (107) 156/76 (102) 159/90 (113) 134/77 (96) 161/80 (107) 108/69 (82) Pulse Ox 100 97 O2 Delivery Room Air Room Air 01/24/19 01/24/19 01/24/19 01/24/19 01:00 04:00 04:00 07:00 Temp 98.0 Pulse 101 85 85 97 85 Resp 16 B/P (MAP) 143/74 (97) 126/79 (95) 112/71 (85) Pulse Ox 97 O2 Delivery Room Air 01/24/19 00:00 Intake Total 4710 ml Balance 4710 ml Capillary Refill : Less Than 3 Seconds Data Review Labs Laboratory Tests 01/23/19 13:35: Sodium Level 135, Potassium Level 3.7, Chloride Level 104, Carbon Dioxide Level 20L, Anion Gap 11, Blood Urea Nitrogen 4L, Creatinine 0.95, Estimat Glomerular Filtration Rate > 60, BUN/Creatinine Ratio 4, Glucose Level 230H, Calcium Level 8.4L, Magnesium Level 1.7L 01/24/19 06:00: Sodium Level 137, Potassium Level 3.7, Chloride Level 102, Carbon Dioxide Level 24, Anion Gap 11, Blood Urea Nitrogen 4L, Creatinine 0.86, Estimat Glomerular Filtration Rate > 60, BUN/Creatinine Ratio 5, Glucose Level 141H, Calcium Level 8.4L, Magnesium Level 1.5L, White Blood Count 4.8, Red Blood Count 3.34L, Hemoglobin 9.3L, Hematocrit 28L, Mean Corpuscular Volume 84, Mean Corpuscular Hemoglobin 28, Mean Corpuscular Hemoglobin Concent 33, Red Cell Distribution Width 23.4H, Platelet Count 151, Mean Platelet Volume 9.2, Neutrophils (%) (Auto) 38L, Lymphocytes (%) (Auto) 47H, Monocytes (%) (Auto) 11, Eosinophils (%) (Auto) 3, Basophils (%) (Auto) 1, Neutrophils # (Auto) 1.8, Lymphocytes # (Auto) 2.3, Monocytes # (Auto) 0.5, Eosinophils # (Auto) 0.1, Basophils # (Auto) 0.0 A/P-Cardiology Assessment/Admission Diagnosis Hypotension likely r/t medications/volume depletion Anemia of undetermined etiology - surgical/medical services managing Coronary artery disease, history of multiple stents in the past, had 2 stents in the . Most recent cardiac cath by Dr. Melchor on December 12, 2018: Severe restenosis in the proximal and mid LAD with in-stent restenosis resistant to balloon angioplasty, multiple attempt with made without success. Obligated the deployment of drug-eluting stent using the long serum 2.7533 mm expanded to 2.9 mm with excellent results, the distal LAD has severe stenosis, fairly smaller artery less than 1.5 cm in diameter. Heavily calcified right coronary artery with multiple stents, mild to moderate disease nonobstructive disease. Mild to moderate circumflex artery disease nonobstructive disease. Prominent left v entricle with hypokinesia of the anterior wall probably due to the severe LAD stenosis, ejection fraction 45% Chronic diastolic congestive heart failure Echocardiogram of Jun [address] Melchor showed LVEF 55-65%. Grade 2 diastolic dysfunction. PASP 15 mmHg Electrolyte abnormalities H/O colon cancer with colon resection History of DVT and one episode of PE in the past and had completed tx with warfarin Diabetes mellitus Hyperlipidemia History of bladder cancer. Currently in remission Hypothyroidism, followed and managed by primary care physician Strong family history of heart disease with multiple family members with heart attack and bypass surgeries Clinical Quality Measures DVT/VTE Risk/Contraindication: Risk Factor Score Per Nursin RFS Level Per Nursing on Admit: 4+=Very High MELINDA MARIN Jan 22, 2019 12:45
[2019-01-22] MEDS: IRON SUCROSE 200 MG/10 ML (VENOFER) VIAL IV SCH (16:48)
--- NOTE | 2019-01-22 17:32 | Consultation-Cardiology ---
HPI-Cardiology Cardiology Consultation: Date of Consultation 01/22/19 Time Seen by a Provider: 16:10 Date of Admission Attending Physician Lolly Real MD Admitting Physician Hans Farmer MD Consulting Physician PEARL CALDERÓN MD, FACP, FACC HPI: Chief Complaint: Reason for consultation: Hypotension HPI: 68 yo man admitted to Dr Real after he presented with low bp that he had noted at home on his home bp monitor. He did not have any specific symptoms at that time. States has intermittently had low bp at home for several weeks. Usually, with low bp, he has soft/diarrheal stools. Has not noted any blood in stools. Doesn't report cp. Denies palp or syncope. Denies exertional shortness of breath, but does tend to get weak with exertion and stamina has deteriorated lately. Review of Systems-Cardiology Review of Systems Constitutional: malaise; No weight loss, No weight gain Eyes: No vision change Ears/Nose/Throat: No ear discharge, No nasal drainage, No recent hearing loss Cardiovascular: As described under HPI Gastrointestinal: As described under HPI Genitourinary: No dysuria, No hematuria, No urine frequency changes Musculoskeletal: No back pain, No joint pain Skin: No rash, No ulcerations Psychiatric/Neurological: No seizure, No focal weakness, No syncope Hematologic: No bleeding abnormalities All Other Systems Reviewed Negative Unless Noted: Yes (Negative excepted noted.) [id number] Hx Patient Social History Alcohol Use: Denies Use Recreational Drug Use: No Smoking Status: Former Smoker Type Used: Cigarettes 2nd Hand Smoke Exposure: No Recent Foreign Travel: No Recent Infectious Disease Expo: No Physical Abuse Screen: No Sexual Abuse: No Immunizations Up To Date Tetanus Booster (TDap): Unknown Date of Pneumonia Vaccine: Jul 26, 2016 Date of Influenza Vaccine: May 04, 2018 Past Medical History PMH As described under Assessment. Family Medical History Family History: Abdominal aortic aneurysm Cardiovascular disease Cataracts Colon cancer Diabetes mellitus Glaucoma Hypertension Myocardial infarction Respiratory disorder Thyroid disease Visual disorder Allergies and Home Medications Allergies Coded Allergies: No Known Drug Allergies (Unverified , 11/15/18) Home Medications Aspirin 81 Mg Tablet.dr, 81 MG PO DAILY, (Reported) Atorvastatin Calcium 40 Mg Tablet, 40 MG PO HS, (Reported) Azelaic Acid 50 Gm Gel..gram., TP DAILY, (Reported) Capecitabine 500 Mg Tablet, PO UD, (Reported) TAKE 4 TABLETS BY MOUTH EVERY 12 HOURS FOR 14 DAYS THEN OFF FOR 7 DAYS Chlorpheniramine Maleate 4 Mg Tablet, 4 MG PO DAILY, (Reported) Chlorpheniramine Maleate 4 Mg Tablet, 4 MG PO BID PRN for ALLERGIES, (Reported) Clopidogrel Bisulfate 75 Mg Tablet, 75 MG PO HS, (Reported) Cyanocobalamin (Vitamin B-12) 1,000 Mcg Tablet, 1,000 MCG PO HS, (Reported) Ferrous Sulfate 325 Mg Tablet, 325 MG PO TID, (Reported) Fluticasone Propionate 9.[address] [place].susp, 2 SPRAY NS DAILY PRN for ALLERGIES, (Reported) Glipizide 10 Mg Tablet, 10 MG PO BID, (Reported) Lactobacillus Combo No.10 1 Each Capsule, 1 CAP PO DAILY, (Reported) Levothyroxine Sodium 112 Mcg Tablet, 112 MCG PO DAILY, (Reported) Metformin HCl 1,000 Mg Tablet, 1,000 MG PO BID, (Reported) Metronidazole 45 Gm Cream..g., TP HS, (Reported) Ondansetron 8 Mg Tab.rapdis, 8 MG PO Q3H PRN for NAUSEA/VOMITING-1ST LINE, (Reported) Pantoprazole Sodium 40 Mg Tablet.dr, 40 MG PO HS, (Reported) Pimecrolimus 30 Gm Cream.gm., TP DAILY PRN for PSORIASIS, (Reported) Pioglitazone HCl 30 Mg Tablet, 30 MG PO HS, (Reported) Sitagliptin Phosphate 100 Mg Tablet, 100 MG PO DAILY, (Reported) Patient Home Medication List Home Medication List Reviewed: Yes Physical Exam-Cardiology Physical Exam Vital Signs/I&O 01/22/19 01/22/19 01/22/19 01/22/19 07:00 08:00 08:02 08:08 Temp 97.2 Pulse 72 79 Resp 20 B/P (MAP) 123/72 (89) 116/71 (86) Pulse Ox 99 99 O2 Delivery Room Air Room Air O2 Flow Rate 0.00 0.00 01/22/19 01/22/19 01/22/19 01/22/19 08:08 08:31 12:18 12:19 Temp 97.2 Pulse 79 74 74 73 77 91 94 Resp 21 B/P (MAP) 89/57 (68) 123/72 (89) 122/74 (90) 122/74 (90) 116/71 (86) 123/74 (90) 89/57 (68) 103/64 (77) Pulse Ox 98 O2 Delivery Room Air O2 Flow Rate 0.00 01/22/19 01/22/19 01/22/19 12:28 16:18 16:18 Temp 97.2 Pulse 70 74 74 95 Resp 22 B/P (MAP) 126/74 (91) 126/74 (91) 102/68 (79) Pulse Ox 100 O2 Delivery Room Air 01/22/19 00:00 Intake Total 1880 ml Balance 1880 ml Capillary Refill : Less Than 3 Seconds Constitutional: AAO x 3, well-developed, well-nourished HEENT: EOMI, hearing is well preserved; No xanthelasmas are seen Neck: carotid pulses are 2 + bilaterally Respiratory: No accessory muscle use; other (good bilat air entry) Cardiovascular: regular rate-rhythm, S1 and S2, systolic murmur (soft UMER at card basee) Gastrointestinal: No tender; soft; No guarding, No rebound; audible bowel sounds Extremities: No clubbing, No cyanosis, No significant edema Neurologic/Psychiatric: oriented x 3, other (able to move all limbs equally) Skin: No rash on exposed areas, No ulcerations on exposed areas Data Review Labs Laboratory Tests 01/22/19 05:30: White Blood Count 4.4, Red Blood Count 3.06L, Hemoglobin 8.5L, Hematocrit 26L, Mean Corpuscular Volume 84, Mean Corpuscular Hemoglobin 28, Mean Corpuscular Hemoglobin Concent 33, Red Cell Distribution Width 22.9H, Platelet Count 143, Mean Platelet Volume 8.9, Sodium Level 137, Potassium Level 3.5L, Chloride Level 106, Carbon Dioxide Level 22, Anion Gap 9, Blood Urea Nitrogen 5L, Creatinine 0.85, Estimat Glomerular Filtration Rate > 60, BUN/Creatinine Ratio 6, Glucose Level 111H, Calcium Level 8.0L, Corrected Calcium 9.0, Magnesium Level 1.0*L, Total Bilirubin 0.2, Aspartate Amino Transf (AST/SGOT) 18, Alanine Aminotransferase (ALT/SGPT) 13, Alkaline Phosphatase 59, Total Protein 5.0L, Albumin 2.8L 01/22/19 10:25: Magnesium Level 1.7L, Iron Level 26L, Total Iron Binding Capacity 278L, Unsaturated Iron Binding Capacity 252, Transferrin % Saturation 9L A/P-Cardiology Assessment/Admission Diagnosis Hypotension likely r/t medications/volume depletion Recent loose stools/diarrhea. H/o C. Diff in the past Anemia of undetermined etiology - Med and Surg svces managing Coronary artery disease, history of multiple stents in the past, had 2 stents in the s. Most recent cardiac cath by Dr. Melchor on December 12, 2018: Severe restenosis in the proximal and mid LAD with in-stent restenosis resistant to balloon angioplasty, multiple attempt with made without success. Obligated the deployment of drug-eluting stent (2.7533 mm expanded to 2.9 mm), the distal LAD small (less than 1.5 cm in diameter) with severe stenosis. Heavily calcified right coronary artery with multiple stents, mild to moderate disease nonobstructive disease. Mild to moderate circumflex artery disease nonobstructive disease. Prominent left ventricle with hypokinesia of the anterior wall probably due to the severe LAD stenosis, ejection fraction 45% Chronic diastolic congestive heart failure Echocardiogram of Jun [address] Melchor showed LVEF 55-65%. Grade 2 diastolic dysfunction. PASP 15 mmHg Electrolyte abnormalities H/o colon cancer treated with colon resection History of DVT and one episode of PE in the past and has completed tx with warfarin Diabetes mellitus Hyperlipidemia History of bladder cancer. Currently in remission Hypothyroidism, followed and managed by primary care physician Strong family history of heart disease with multiple family members with heart attack and bypass surgeries Discussion and Recomendations * There is considerable risk to stopping Plavix (given recent GUNNAR to LAD by Dr Melchor in late November 2018) * If there is surgery/scope is needed urgently, then consider stopping Plavix for as few days as possible and cover with treatment dose Lovenox (although Lovenox is not guaranteed to prevent stent thrombosis in absence of antiplatelet therapy) * I discussed his CV issues with him in detail * Correct electrolyte abnormalities * Dr Solares covering Card Svce beginning tomorrow Clinical Quality Measures DVT/VTE Risk/Contraindication: Risk Factor Score Per Nursin RFS Level Per Nursing on Admit: 4+=Very High PEARL CALDERÓN MD FACP FAC CCDS Jan 22, 2019 17:32
--- NOTE | 2019-01-22 18:31 | Progress Note - Surgery ---
Subjective Date Seen by a Provider: Jan 22, 2019 Time Seen by a Provider: 18:27 Subjective/Events-last exam Patient blood pressure lower this morning. Not having any blood per rectum. No new complaints. Hgb slight drop. Denies n/v fever sweats chills shortness of breath or chest pain. Objective Exam Vital Signs Date Time Temp Pulse Resp B/P (MAP) Pulse Ox O2 Delivery O2 Flow Rate FiO2 01/22/19 16:18 97.2 22 100 Room Air 01/22/19 16:18 74 126/74 (91) 74 126/74 (91) 95 102/68 (79) 01/22/19 12:28 70 01/22/19 12:19 74 122/74 (90) 77 123/74 (90) 94 103/64 (77) 01/22/19 12:18 97.2 74 21 122/74 (90) 98 Room Air 0.00 01/22/19 08:31 79 123/72 (89) 73 116/71 (86) 91 89/57 (68) 01/22/19 08:08 89/57 (68) 01/22/19 08:08 116/71 (86) 01/22/19 08:02 97.2 79 20 123/72 (89) 99 Room Air 0.00 01/22/19 08:00 99 Room Air 0.00 01/22/19 07:00 72 01/22/19 03:56 79 120/68 (85) 77 98/60 (73) 96 68/46 (53) 01/22/19 03:56 97.2 20 96 Room Air 01/22/19 01:00 73 01/21/19 23:38 97.8 18 98 Room Air 01/21/19 23:38 80 100/60 (73) 83 88/52 (64) 92 63/37 (46) 01/21/19 20:33 98.9 20 100 Room Air 01/21/19 20:33 84 118/60 (79) 83 113/59 (77) 99 95/51 (66) 01/21/19 20:30 98 Room Air 01/21/19 19:00 80 I & O 01/22/19 07:00 Intake Total 4130 ml Balance 4130 ml Capillary Refill : Less Than 3 Seconds General Appearance: No Apparent Distress, WD/WN HEENT: PERRL/EOMI Neck: Full Range of Motion, Normal Inspection, Non Tender Respiratory: Chest Non Tender, No Accessory Muscle Use, No Respiratory Distress Cardiovascular: Regular Rate, Rhythm Gastrointestinal: normal bowel sounds, non tender, soft Extremity: Non Tender, No Calf Tenderness Neurologic/Psychiatric: Alert, Oriented x3, No Motor/Sensory Deficits, Normal Mood/Affect Skin: Normal Color, Warm/Dry Lymphatic: No Adenopathy Results Lab Laboratory Tests 01/22/19 05:30: White Blood Count 4.4, Red Blood Count 3.06L, Hemoglobin 8.5L, Hematocrit 26L, Mean Corpuscular Volume 84, Mean Corpuscular Hemoglobin 28, Mean Corpuscular Hemoglobin Concent 33, Red Cell Distribution Width 22.9H, Platelet Count 143, Mean Platelet Volume 8.9, Sodium Level 137, Potassium Level 3.5L, Chloride Level 106, Carbon Dioxide Level 22, Anion Gap 9, Blood Urea Nitrogen 5L, Creatinine 0.85, Estimat Glomerular Filtration Rate > 60, BUN/Creatinine Ratio 6, Glucose Level 111H, Calcium Level 8.0L, Corrected Calcium 9.0, Magnesium Level 1.0*L, Total Bilirubin 0.2, Aspartate Amino Transf (AST/SGOT) 18, Alanine Aminotransferase (ALT/SGPT) 13, Alkaline Phosphatase 59, Total Protein 5.0L, Albumin 2.8L 01/22/19 10:25: Magnesium Level 1.7L, Iron Level 26L, Total Iron Binding Capacity 278L, Unsaturated Iron Binding Capacity 252, Transferrin % Saturation 9L Assessment/Plan Assessment/Plan Assessment/Plan Hypotension Anemia History of colon cancer Current chemotherapy for colon cancer Diarrhea Antiplatelet therapy after stent placement Patient with recent episodes of diarrhea and found to have blood pressures 60 systolic. Since being admitted this has improved after fluids. His hgb has dropped slightly likely from fluids, continue to monitor. He does not see any hi blood in stools still. At this time would keep with conservative measures. Follow labs and transfuse if needed. Clear liquid diet. His last Plavix was last Monday so would hold off at this time for any endoscopy and could do endoscopy on Monday for further evaluation. On Protonix BID. Will follow no surgical intervention at this time. Clinical Quality Measures DVT/VTE Risk/Contraindication: Risk Factor Score Per Nursin RFS Level Per Nursing on Admit: 4+=Very High SRIKANTH AGUILAR DO Jan 22, 2019 18:31
--- NOTE | 2019-01-22 18:41 | History & Physical ---
HPI History of Present Illness: 68 yo M who is currently undergoing chemo for colon cancer. Patient came to ER for orthostatic hypotension. Patient states that he has some increased heart rate when he stands up and feels very fatigued. Denies any gross blood in stool. States that he has some burning in his stomach when he eats but otherwise feels fine. Source: patient Exam Limitations: no limitations Date seen by provider: Jan 22, 2019 Time Seen by Provider: 11:00 Attending Physician Lolly Real MD PCP Emil Ritter MD Consult Date of Admission Jan 22, 2019 at 12:30 Home Medications Home Medications Reviewed patient Home Medication Reconciliation performed by pharmacy medication reconciliations film laboratory technician and/or nursing. Patients Allergies have been reviewed. Allergies Coded Allergies: No Known Drug Allergies (Unverified , 11/15/18) AAX-[id number]-[id number] Hx Patient Social History Alcohol Use: Denies Use Recreational Drug Use: No Smoking Status: Former Smoker Type Used: Cigarettes 2nd Hand Smoke Exposure: No Recent Foreign Travel: No Contact w/other who traveled: No Recent Hopitalizations: Yes (SEP 2018-[place] COLON/SURGERY) Recent Infectious Disease Expo: No Physical Abuse Screen: No Sexual Abuse: No Immunizations Up To Date Tetanus Booster (TDap): Unknown Date of Pneumonia Vaccine: Jul 26, 2016 Date of Influenza Vaccine: May 04, 2018 Past Medical History Colon Cancer Family Medical History Significant Family History: CAD Over 55 Years Old Family History: Abdominal aortic aneurysm Cardiovascular disease Cataracts Colon cancer Diabetes mellitus Glaucoma Hypertension Myocardial infarction Respiratory disorder Thyroid disease Visual disorder Review of Systems (CHC) Constitutional: dizziness; No fever; malaise EENTM: no symptoms reported Respiratory: no symptoms reported; No cough, No dyspnea on exertion, No short of breath Cardiovascular: no symptoms reported; No chest pain, No edema, No palpitations Gastrointestinal: no symptoms reported; No abdominal pain, No constipation, No diarrhea, No nausea, No vomiting Genitourinary: no symptoms reported; No dysuria, No frequency, No hematuria Musculoskeletal: no symptoms reported; No back pain, No joint pain, No muscle pain Skin: no symptoms reported; No lesions, No rash Psychiatric/Neurological: No Symptoms Reported; Denies Headache, Denies Weakness Reviewed Test Results Reviewed Test Results Lab Laboratory Tests Test 01/22/19 05:30 01/22/19 10:25 Range/Units White Blood Count 4.4 4.3-11.0 10^3/uL Red Blood Count 3.06 L 4.35-5.85 10^6/uL Hemoglobin 8.5 L 13.3-17.7 G/DL Hematocrit 26 L 40-54 % Mean Corpuscular Volume 84 80-99 FL Mean Corpuscular Hemoglobin 28 25-34 PG Mean Corpuscular Hemoglobin Concent 33 32-36 G/DL Red Cell Distribution Width 22.9 H 10.0-14.5 % Platelet Count 143 130-400 10^3/uL Mean Platelet Volume 8.9 7.4-10.4 FL Sodium Level 137 135-145 MMOL/L Potassium Level 3.5 L 3.6-5.0 MMOL/L Chloride Level 106 98-107 MMOL/L Carbon Dioxide Level 22 21-32 MMOL/L Anion Gap 9 5-14 MMOL/L Blood Urea Nitrogen 5 L 7-18 MG/DL Creatinine 0.85 0.60-1.30 MG/DL Estimat Glomerular Filtration Rate > 60 BUN/Creatinine Ratio 6 Glucose Level 111 H 70-105 MG/DL Calcium Level 8.0 L 8.5-10.1 MG/DL Corrected Calcium 9.0 8.5-10.1 MG/DL Magnesium Level 1.0 *L 1.7 L 1.8-2.4 MG/DL Total Bilirubin 0.2 0.1-1.0 MG/DL Aspartate Amino Transf (AST/SGOT) 18 5-34 U/L Alanine Aminotransferase (ALT/SGPT) 13 0-55 U/L Alkaline Phosphatase 59 40-136 U/L Total Protein 5.0 L 6.4-8.2 GM/DL Albumin 2.8 L 3.2-4.5 GM/DL Iron Level 26 L 40-180 ug/dL Total Iron Binding Capacity 278 L 280-380 ug/dL Unsaturated Iron Binding Capacity 252 55-450 ug/dL Transferrin % Saturation 9 L 15-50 % Physical Exam-(CHC) Physical Exam Vital Signs VS - Last 72 Hours, by Label 01/21/19 01/21/19 01/21/19 01/21/19 08:24 08:48 11:44 11:57 Temp 97.9 Pulse 98 90 76 76 98 78 113 75 Resp 18 16 B/P (MAP) 100/59 (73) 105/64 (78) 134/63 (86) 123/67 (85) 96/60 (72) 148/88 (108) 66/51 (56) 127/68 (87) Pulse Ox 98 01/21/19 01/21/19 01/21/19 01/21/19 13:32 13:40 16:47 16:48 Temp 97.6 97.2 Pulse 68 90 75 90 Resp 20 20 B/P (MAP) 152/72 148/70 (96) 145/69 (94) 124/58 (80) Pulse Ox 100 100 O2 Delivery Room Air Room Air Room Air O2 Flow Rate 0.00 01/21/19 01/21/19 01/21/19 01/21/19 17:19 19:00 20:30 20:33 Pulse 74 80 84 83 99 B/P (MAP) 118/60 (79) 113/59 (77) 95/51 (66) Pulse Ox 98 O2 Delivery Room Air 01/21/19 01/21/19 01/21/19 01/22/19 20:33 23:38 23:38 01:00 Temp 98.9 97.8 Pulse 80 73 83 92 Resp 20 18 B/P (MAP) 100/60 (73) 88/52 (64) 63/37 (46) Pulse Ox 100 98 O2 Delivery Room Air Room Air 01/22/19 01/22/19 01/22/19 01/22/19 03:56 03:56 07:00 08:00 Temp 97.2 Pulse 79 72 77 96 Resp 20 B/P (MAP) 120/68 (85) 98/60 (73) 68/46 (53) Pulse Ox 96 99 O2 Delivery Room Air Room Air O2 Flow Rate 0.00 01/22/19 01/22/19 01/22/19 01/22/19 08:02 08:08 08:08 08:31 Temp 97.2 Pulse 79 79 73 91 Resp 20 B/P (MAP) 123/72 (89) 116/71 (86) 89/57 (68) 123/72 (89) 116/71 (86) 89/57 (68) Pulse Ox 99 O2 Delivery Room Air O2 Flow Rate 0.00 01/22/19 01/22/19 01/22/19 01/22/19 12:18 12:19 12:28 16:18 Temp 97.2 Pulse 74 74 70 74 77 74 94 95 Resp 21 B/P (MAP) 122/74 (90) 122/74 (90) 126/74 (91) 123/74 (90) 126/74 (91) 103/64 (77) 102/68 (79) Pulse Ox 98 O2 Delivery Room Air O2 Flow Rate 0.00 01/22/19 16:18 Temp 97.2 Resp 22 Pulse Ox 100 O2 Delivery Room Air Capillary Refill : Less Than 3 Seconds General Appearance: WD/WN, no apparent distress HEENT: PERRL/EOMI Neck: non-tender, full range of motion, supple Respiratory: chest non-tender, lungs clear, normal breath sounds, no respiratory distress, no accessory muscle use Cardiovascular: normal peripheral pulses, regular rate, rhythm, no edema, no murmur Gastrointestinal: normal bowel sounds, non tender, soft Back: no CVA tenderness, no vertebral tenderness Extremities: normal range of motion, non-tender, no pedal edema, no calf tenderness, normal capillary refill Neurologic/Psychiatric: last trimmer II-XII nml as tested, no motor/sensory deficits, alert, normal mood/affect, oriented x 3 Skin: normal color, warm/dry Lymphatic: no adenopathy Assessment/Plan Assessment/Plan Admission Status: Inpatient Order (span 2 midnights) Reason for Inpatient Admission: Patient needing frequent vital signs and IV fluids and consult (1) Orthostatic hypotension Status: Acute Assessment & Plan: - Still having hypotension, Continue IVFs @ 125 cc/hr (2) GI bleed Status: Resolved Assessment & Plan: - Hemoccult pending, Hgb trending down Qualifiers: Qualified Codes: K92.2 - Gastrointestinal hemorrhage, unspecified (3) Iron deficiency anemia due to chronic blood loss Status: Chronic Assessment & Plan: - IV iron infusion (4) Colon cancer Status: Chronic (5) Hypokalemia Status: Acute Assessment & Plan: - Replaced and repeat BMP (6) Hypomagnesemia Status: Acute Assessment & Plan: - Replace and repeat BMP Clinical Quality Measures DVT/VTE Risk/Contraindication: Risk Factor Score Per Nursin RFS Level Per Nursing on Admit: 4+=Very High Copy Copies To 1: EMIL RITTER MD, HOLLY R MD Jan 22, 2019 18:41
[2019-01-22] MEDS: ATORVASTATIN 40 MG (LIPITOR) TABLET PO SCH (21:41)
[2019-01-23 01:30] VITALS: BP_SYST 101; BP_SYST 110; BP_DIAS 58; BP_DIAS 59; BP_DIAS 61
[2019-01-23 03:30] VITALS: BP_SYST 105; BP_SYST 83; BP_SYST 93; BP_DIAS 59; BP_DIAS 60; BP_DIAS 66
[2019-01-23 05:49] LABS: BASOPHILS % (AUTO) 1 % (0-10); EOSINOPHILS # (AUTO) 0.2 10^3/uL (0.0-0.3); EOSINOPHILS % (AUTO) 4 % (0-10); HEMATOCRIT 28 % (40-54); HEMOGLOBIN 9.1 G/DL (13.3-17.7); LYMPHOCYTES # (AUTO) 1.8 X 10^3 (1.0-4.0); LYMPHOCYTES % (AUTO) 43 % (12-44); MEAN CORPUSCULAR HGB CONC 33 G/DL (32-36); MEAN CORPUSCULAR VOLUME 84 FL (80-99); MEAN PLATELET VOLUME 8.7 FL (7.4-10.4); MONOCYTES # (AUTO) 0.6 X 10^3 (0.0-1.0); MONOCYTES % (AUTO) 15 % (0-12); NEUTROPHILS # (AUTO) 1.6 X 10^3 (1.8-7.8); NEUTROPHILS % (AUTO) 38 % (42-75); PLATELET COUNT 162 10^3/uL (130-400); RED CELL DISTRIBUTION WIDTH 23.4 % (10.0-14.5); WHITE BLOOD COUNT 4.1 10^3/uL (4.3-11.0)
[2019-01-23 05:51] LABS: MEAN CORPUSCULAR HEMOGLOBIN 27 PG (25-34)
[2019-01-23 06:09] LABS: BUN/CREATININE RATIO 4; CALCIUM 8.1 MG/DL (8.5-10.1); CARBON DIOXIDE 19 MMOL/L (21-32); CHLORIDE 107 MMOL/L (98-107); CREATININE SERUM 0.82 MG/DL (0.60-1.30); GFR ESTIMATED > 60; GLUCOSE 145 MG/DL (70-105); POTASSIUM 3.4 MMOL/L (3.6-5.0); SODIUM 137 MMOL/L (135-145)
[2019-01-23] MEDS: NS IV 1000 ML 1,000 ML IV SCH ×2 (06:13→17:23)
[2019-01-23] MEDS: LEVOTHYROXINE 112 MCG (LEVOTHROID) TAB PO SCH (06:13)
[2019-01-23 08:00] VITALS: BP_SYST 118; BP_SYST 122; BP_SYST 126; BP_DIAS 65; BP_DIAS 79; BP_DIAS 80
[2019-01-23] MEDS: FLUTICASONE NASAL SPRAY (FLONASE) 16 GM BTL NS SCH (08:19)
[2019-01-23] MEDS: PANTOPRAZOLE 40 MG (PROTONIX) VIAL IV SCH ×2 (08:19→21:04)
--- NOTE | 2019-01-23 08:45 | Progress Note - Surgery ---
Subjective Date Seen by a Provider: Jan 23, 2019 Time Seen by a Provider: 08:43 Subjective/Events-last exam Patient no new complaints. Hgb increase slighlty. No gross blood per rectum. No abdominal pain. Denies n/v fever sweats chills shortness of breath or chest pain. Objective Exam Vital Signs Date Time Temp Pulse Resp B/P (MAP) Pulse Ox O2 Delivery O2 Flow Rate FiO2 01/23/19 07:00 92 01/23/19 03:30 99.0 88 18 105/59 (74) 96 Room Air 01/23/19 03:30 88 105/59 (74) 97 83/60 (68) 117 93/66 (75) 01/23/19 01:30 74 110/61 (77) 78 101/58 (72) 79 101/59 (73) 01/23/19 01:00 83 01/22/19 23:34 97.6 74 20 110/61 (77) 98 Room Air 01/22/19 20:00 99 Room Air 0.00 01/22/19 19:33 69 133/60 (84) 80 130/62 (84) 81 103/55 (71) 01/22/19 19:33 97.4 20 100 Room Air 01/22/19 19:00 78 01/22/19 16:18 97.2 22 100 Room Air 01/22/19 16:18 74 126/74 (91) 74 126/74 (91) 95 102/68 (79) 01/22/19 12:28 70 01/22/19 12:19 74 122/74 (90) 77 123/74 (90) 94 103/64 (77) 01/22/19 12:18 97.2 74 21 122/74 (90) 98 Room Air 0.00 I & O 01/23/19 07:00 Intake Total 5980 ml Balance 5980 ml Capillary Refill : Less Than 3 Seconds General Appearance: No Apparent Distress, WD/WN HEENT: PERRL/EOMI Neck: Full Range of Motion, Normal Inspection, Non Tender Respiratory: Chest Non Tender, No Accessory Muscle Use, No Respiratory Distress Cardiovascular: Regular Rate, Rhythm Gastrointestinal: normal bowel sounds, non tender, soft Extremity: Non Tender, No Calf Tenderness Neurologic/Psychiatric: Alert, Oriented x3, No Motor/Sensory Deficits, Normal Mood/Affect Skin: Normal Color, Warm/Dry Lymphatic: No Adenopathy Results Lab Laboratory Tests 01/22/19 10:25: Magnesium Level 1.7L, Iron Level 26L, Total Iron Binding Capacity 278L, Unsaturated Iron Binding Capacity 252, Transferrin % Saturation 9L, Ferritin 54.2 01/23/19 05:40: White Blood Count 4.1L, Red Blood Count 3.31L, Hemoglobin 9.1L, Hematocrit 28L, Mean Corpuscular Volume 84, Mean Corpuscular Hemoglobin 27, Mean Corpuscular Hemoglobin Concent 33, Red Cell Distribution Width 23.4H, Platelet Count 162, Mean Platelet Volume 8.7, Neutrophils (%) (Auto) 38L, Lymphocytes (%) (Auto) 43, Monocytes (%) (Auto) 15H, Eosinophils (%) (Auto) 4, Basophils (%) (Auto) 1, Neutrophils # (Auto) 1.6L, Lymphocytes # (Auto) 1.8, Monocytes # (Auto) 0.6, Eosinophils # (Auto) 0.2, Basophils # (Auto) 0.0, Sodium Level 137, Potassium Level 3.4L, Chloride Level 107, Carbon Dioxide Level 19L, Anion Gap 11, Blood Urea Nitrogen 3L, Creatinine 0.82, Estimat Glomerular Filtration Rate > 60, BUN/Creatinine Ratio 4, Glucose Level 145H, Calcium Level 8.1L Assessment/Plan Assessment/Plan Assessment/Plan Hypotension Anemia History of colon cancer Current chemotherapy for colon cancer Diarrhea Antiplatelet therapy after stent placement Patient with recent episodes of diarrhea and found to have blood pressures 60 systolic. Since being admitted this has improved after fluids. His hgb has increased slightly likely from fluids, continue to monitor. He does not see any hi blood in stools still. At this time would keep with conservative measures. Follow labs and transfuse if needed. Clear liquid diet. His last Plavix was last Monday so would hold off at this time for any endoscopy and could do endoscopy on Monday for further evaluation (EGD and Colonoscopy) will discuss with cardiology. On Protonix BID. Will follow no surgical intervention at this time. Clinical Quality Measures DVT/VTE Risk/Contraindication: Risk Factor Score Per Nursin RFS Level Per Nursing on Admit: 4+=Very High SRIKANTH AGUILAR DO Jan 23, 2019 08:45
[2019-01-23] MEDS ORDERED: KCL 20 MEQ TAB (K-DUR) PO NR (09:00)
[2019-01-23] MEDS: LEVOFLOXACIN 750 MG/150 ML IV 150 ML IV SCH (11:42)
[2019-01-23 12:00] VITALS: BP_SYST 103; BP_SYST 142; BP_SYST 143; BP_DIAS 70; BP_DIAS 84; BP_DIAS 86
[2019-01-23 14:06] LABS: BUN/CREATININE RATIO 4; CALCIUM 8.4 MG/DL (8.5-10.1); CARBON DIOXIDE 20 MMOL/L (21-32); CHLORIDE 104 MMOL/L (98-107); CREATININE SERUM 0.95 MG/DL (0.60-1.30); GFR ESTIMATED > 60; GLUCOSE 230 MG/DL (70-105); MAGNESIUM 1.7 MG/DL (1.8-2.4); POTASSIUM 3.7 MMOL/L (3.6-5.0); SODIUM 135 MMOL/L (135-145)
[2019-01-23] MEDS ORDERED: GOLYTELY POWDER 4000 ML BTL PO NR (16:00)
[2019-01-23 16:40] VITALS: BP_SYST 143; BP_SYST 150; BP_SYST 152; BP_DIAS 75; BP_DIAS 81; BP_DIAS 82
[2019-01-23 20:19] VITALS: BP_SYST 159; BP_SYST 161; BP_SYST 163; BP_DIAS 80; BP_DIAS 90
[2019-01-23] MEDS ORDERED: CLOPIDOGREL 75 MG (PLAVIX) TABLET PO SCH (21:00)
[2019-01-23] MEDS: ATORVASTATIN 40 MG (LIPITOR) TABLET PO SCH (21:04)
--- NOTE | 2019-01-23 22:08 | Progress Note ---
Subjective Subjective/Events-last exam Doing well. No complaints. Tolerating PO diet and ambulation. Denies any pain. States that he has some PND and would like flonase Review of Systems Date Seen by Provider: Jan 23, 2019 Time Seen by Provider: 10:15 Pulmonary: No Dyspnea, No Cough Cardiovascular: No: Chest Pain, Palpitations Gastrointestinal: Diarrhea; No: Nausea, Vomiting, Abdominal Pain, Melena Objective Exam Last Set of Vital Signs Vital Signs Date Time Temp Pulse Resp B/P (MAP) Pulse Ox O2 Delivery O2 Flow Rate FiO2 01/23/19 20:19 97.3 20 100 Room Air 01/23/19 20:19 90 163/80 (107) 97 159/90 (113) 161/80 (107) 01/23/19 20:00 0.00 Capillary Refill : Less Than 3 Seconds I&O Intake and Output 01/23/19 00:00 Intake Total 5930 ml Balance 5930 ml Intake Oral 2530 ml IV Total 3400 ml # Voids 10 General: Alert, Oriented X3, Cooperative, No Acute Distress Lungs: Clear to Auscultation, Normal Air Movement Heart: Regular Rate, No Murmurs Abdomen: Normal Bowel Sounds, Soft, No Tenderness, No Masses Extremities: No Edema, No Tenderness/Swelling Results/Procedures Lab Laboratory Tests 01/23/19 05:40: White Blood Count 4.1L, Red Blood Count 3.31L, Hemoglobin 9.1L, Hematocrit 28L, Mean Corpuscular Volume 84, Mean Corpuscular Hemoglobin 27, Mean Corpuscular Hemoglobin Concent 33, Red Cell Distribution Width 23.4H, Platelet Count 162, Mean Platelet Volume 8.7, Neutrophils (%) (Auto) 38L, Lymphocytes (%) (Auto) 43, Monocytes (%) (Auto) 15H, Eosinophils (%) (Auto) 4, Basophils (%) (Auto) 1, Neutrophils # (Auto) 1.6L, Lymphocytes # (Auto) 1.8, Monocytes # (Auto) 0.6, Eosinophils # (Auto) 0.2, Basophils # (Auto) 0.0, Sodium Level 137, Potassium Level 3.4L, Chloride Level 107, Carbon Dioxide Level 19L, Anion Gap 11, Blood Urea Nitrogen 3L, Creatinine 0.82, Estimat Glomerular Filtration Rate > 60, BUN/Creatinine Ratio 4, Glucose Level 145H, Calcium Level 8.1L 01/23/19 13:35: Sodium Level 135, Potassium Level 3.7, Chloride Level 104, Carbon Dioxide Level 20L, Anion Gap 11, Blood Urea Nitrogen 4L, Creatinine 0.95, Estimat Glomerular Filtration Rate > 60, BUN/Creatinine Ratio 4, Glucose Level 230H, Calcium Level 8.4L, Magnesium Level 1.7L Assessment/Plan Assessment/Plan (1) Orthostatic hypotension Status: Acute Assessment & Plan: - Still having hypotension, Continue IVFs @ 125 cc/hr 01/23: Last dose of plavix was Sat, plan for scope on Monday with Osorio, Hgb stable, IV iron given (2) GI bleed Status: Resolved Assessment & Plan: - Hemoccult pending, Hgb trending down 01/23: S/p 1 dose of IV venofer, 2nd dose tomorrow Qualifiers: Qualified Codes: K92.2 - Gastrointestinal hemorrhage, unspecified (3) Iron deficiency anemia due to chronic blood loss Status: Chronic Assessment & Plan: - IV iron infusion (4) Colon cancer Status: Chronic (5) Hypokalemia Status: Acute Assessment & Plan: - Replaced and repeat BMP (6) Hypomagnesemia Status: Acute Assessment & Plan: - Replace and repeat BMP Clinical Quality Measures DVT/VTE Risk/Contraindication: Risk Factor Score Per Nursin RFS Level Per Nursing on Admit: 4+=Very High FANNY MORALES MD Jan 23, 2019 22:08
--- NOTE | 2019-01-23 23:15 | Cardiology Progress Note ---
Cardiology SOAP Progress Note Subjective: No Chest pain or shortness of breath. Objective: I&O/Vital Signs 01/24/19 01/24/19 01/24/19 01/24/19 12:00 13:50 14:05 14:10 Temp 97.9 Resp 18 18 B/P (MAP) Pulse Ox 100 100 O2 Delivery OxyMask OxyMask OxyMask O2 Flow Rate 10 10 10 01/24/19 01/24/19 01/24/19 01/24/19 14:15 14:20 14:25 16:13 Temp 96.0 Pulse 86 Resp 18 18 16 16 B/P (MAP) 129/73 (91) Pulse Ox 100 99 100 98 O2 Delivery OxyMask OxyMask Room Air Room Air O2 Flow Rate 10 10 01/24/19 19:27 Pulse 86 Resp 16 B/P (MAP) 129/73 Pulse Ox 98 O2 Delivery Room Air O2 Flow Rate 10.00 01/24/19 00:00 Intake Total 4710 ml Balance 4710 ml Weight (Pounds): 197 Weight (Ounces): 1.1 Weight (Calculated Kilograms): [id number] Constitutional: AAO x 3, well-developed, well-nourished Respiratory: No accessory muscle use; other (good bilat air entry) Cardiovascular: regular rate-rhythm, S1 and S2, systolic murmur (soft UMER at card basee) Gastrointestional: No tender; soft; No guarding, No rebound; audible bowel sounds Extremities: No clubbing, No cyanosis, No significant edema Neurologic/Psychiatric: oriented x 3, other (able to move all limbs equally) Skin: No rash on exposed areas, No ulcerations on exposed areas Results/Procedures: Labs Laboratory Tests 01/24/19 06:00: White Blood Count 4.8, Red Blood Count 3.34L, Hemoglobin 9.3L, Hematocrit 28L, Mean Corpuscular Volume 84, Mean Corpuscular Hemoglobin 28, Mean Corpuscular Hemoglobin Concent 33, Red Cell Distribution Width 23.4H, Platelet Count 151, Mean Platelet Volume 9.2, Neutrophils (%) (Auto) 38L, Lymphocytes (%) (Auto) 47H , Monocytes (%) (Auto) 11, Eosinophils (%) (Auto) 3, Basophils (%) (Auto) 1, Neutrophils # (Auto) 1.8, Lymphocytes # (Auto) 2.3, Monocytes # (Auto) 0.5, Eosinophils # (Auto) 0.1, Basophils # (Auto) 0.0, Sodium Level 137, Potassium Level 3.7, Chloride Level 102, Carbon Dioxide Level 24, Anion Gap 11, Blood Urea Nitrogen 4L, Creatinine 0.86, Estimat Glomerular Filtration Rate > 60, BUN/Creatinine Ratio 5, Glucose Level 141H, Calcium Level 8.4L, Magnesium Level 1.5L A/P: Assessment/Dx: Hypotension likely r/t medications/volume depletion Recent loose stools/diarrhea. H/o C. Diff in the past Anemia of undetermined etiology - Med and Surg svces managing Coronary artery disease, history of multiple stents in the past, had 2 stents in the . Most recent cardiac cath by Dr. Melchor on December 12, 2018: Severe restenosis in the proximal and mid LAD with in-stent restenosis resistant to balloon angioplasty, multiple attempt with made without success. Obligated the deployment of drug-eluting stent (2.7533 mm expanded to 2.9 mm), the distal LAD small (less than 1.5 cm in diameter) with severe stenosis. Heavily calcified right coronary artery with multiple stents, mild to moderate disease nonobstructive disease. Mild to moderate circumflex artery disease nonobstructive disease. Prominent left ventricle with hypokinesia of the anterior wall probably due to the severe LAD stenosis, ejection fraction 45% Chronic diastolic congestive heart failure Echocardiogram of Jun [address] Melchor showed LVEF 55-65%. Grade 2 diastolic dysfunction. PASP 15 mmHg Electrolyte abnormalities H/o colon cancer treated with colon resection History of DVT and one episode of PE in the past and has completed tx with warfarin Diabetes mellitus Hyperlipidemia History of bladder cancer. Currently in remission Hypothyroidism, followed and managed by primary care physician Strong family history of heart disease with multiple family members with heart attack and bypass surgeries Plan: * Continue current medical therapy. Thank you for your consultation. Please call me if you have any questions. Veronika Solares MD, FACP, FACC, FSCAI, FHRS, CCDS Interventional Cardiology Cardiac Electrophysiology Vascular Medicine and Endovascular Interventions Balta SOLARES MD Jan 23, 2019 23:15
[2019-01-24] VITALS: BP_SYST 108; BP_SYST 134; BP_SYST 156; BP_DIAS 69; BP_DIAS 76; BP_DIAS 77
[2019-01-24 04:00] VITALS: BP_SYST 112; BP_SYST 126; BP_SYST 143; BP_DIAS 71; BP_DIAS 74; BP_DIAS 79
[2019-01-24] MEDS: LEVOTHYROXINE 112 MCG (LEVOTHROID) TAB PO SCH (05:51)
[2019-01-24 06:29] LABS: BASOPHILS % (AUTO) 1 % (0-10); EOSINOPHILS # (AUTO) 0.1 10^3/uL (0.0-0.3); EOSINOPHILS % (AUTO) 3 % (0-10); HEMATOCRIT 28 % (40-54); HEMOGLOBIN 9.3 G/DL (13.3-17.7); LYMPHOCYTES # (AUTO) 2.3 X 10^3 (1.0-4.0); LYMPHOCYTES % (AUTO) 47 % (12-44); MEAN CORPUSCULAR HEMOGLOBIN 28 PG (25-34); MEAN CORPUSCULAR HGB CONC 33 G/DL (32-36); MEAN CORPUSCULAR VOLUME 84 FL (80-99); MEAN PLATELET VOLUME 9.2 FL (7.4-10.4); MONOCYTES # (AUTO) 0.5 X 10^3 (0.0-1.0); MONOCYTES % (AUTO) 11 % (0-12); NEUTROPHILS # (AUTO) 1.8 X 10^3 (1.8-7.8); NEUTROPHILS % (AUTO) 38 % (42-75); PLATELET COUNT 151 10^3/uL (130-400); RED CELL DISTRIBUTION WIDTH 23.4 % (10.0-14.5); WHITE BLOOD COUNT 4.8 10^3/uL (4.3-11.0)
[2019-01-24 06:54] LABS: BUN/CREATININE RATIO 5; CALCIUM 8.4 MG/DL (8.5-10.1); CARBON DIOXIDE 24 MMOL/L (21-32); CHLORIDE 102 MMOL/L (98-107); CREATININE SERUM 0.86 MG/DL (0.60-1.30); GFR ESTIMATED > 60; GLUCOSE 141 MG/DL (70-105); MAGNESIUM 1.5 MG/DL (1.8-2.4); POTASSIUM 3.7 MMOL/L (3.6-5.0); SODIUM 137 MMOL/L (135-145)
[2019-01-24] MEDS: NS IV 1000 ML 1,000 ML IV SCH (07:38)
[2019-01-24 08:00] VITALS: BP_SYST 124; BP_SYST 130; BP_SYST 140; BP_SYST 40; BP_DIAS 77; BP_DIAS 81; BP_DIAS 84
[2019-01-24] MEDS: PANTOPRAZOLE 40 MG (PROTONIX) VIAL IV SCH (08:56)
[2019-01-24] MEDS: FLUTICASONE NASAL SPRAY (FLONASE) 16 GM BTL NS SCH (08:57)
--- NOTE | 2019-01-24 09:15 | Progress Note - Surgery ---
Subjective Date Seen by a Provider: Jan 24, 2019 Time Seen by a Provider: 09:13 Subjective/Events-last exam hgb stable. tolerated prep. npo at this time. denies any new complaints. Objective Exam Vital Signs Date Time Temp Pulse Resp B/P (MAP) Pulse Ox O2 Delivery O2 Flow Rate FiO2 01/24/19 08:00 93 140/84 (102) 88 130/81 (97) 96 124/77 (93) 01/24/19 08:00 97.5 86 20 40/84 (69) 98 Room Air 01/24/19 07:00 97 01/24/19 04:00 85 143/74 (97) 85 126/79 (95) 112/71 (85) 01/24/19 04:00 98.0 85 16 97 Room Air 01/24/19 01:00 101 01/24/19 00:00 97.8 92 20 97 Room Air 01/24/19 00:00 90 156/76 (102) 97 134/77 (96) 108/69 (82) 01/23/19 20:19 97.3 20 100 Room Air 01/23/19 20:19 90 163/80 (107) 97 159/90 (113) 161/80 (107) 01/23/19 20:00 99 Room Air 0.00 01/23/19 19:00 89 01/23/19 16:40 97.6 20 152/75 (100) 98 Room Air 01/23/19 16:40 88 152/75 (100) 91 150/81 (104) 103 143/82 (102) 01/23/19 13:00 93 01/23/19 12:00 97.4 99 20 142/84 (103) 99 Room Air 01/23/19 12:00 91 142/84 (103) 74 143/86 (105) 112 103/70 (81) I & O 01/24/19 07:00 Intake Total 5410 ml Balance 5410 ml Capillary Refill : Less Than 3 Seconds General Appearance: No Apparent Distress, WD/WN HEENT: PERRL/EOMI Neck: Full Range of Motion, Normal Inspection, Non Tender Respiratory: Chest Non Tender, No Accessory Muscle Use, No Respiratory Distress Cardiovascular: Regular Rate, Rhythm Gastrointestinal: non tender, soft, no organomegaly, no pulsatile mass Extremity: Non Tender, No Calf Tenderness Neurologic/Psychiatric: Alert, Oriented x3, No Motor/Sensory Deficits, Normal Mood/Affect, appellate conferee II-XII Norm as Tested Skin: Normal Color, Warm/Dry Lymphatic: No Adenopathy Results Lab Laboratory Tests 01/23/19 13:35: Sodium Level 135, Potassium Level 3.7, Chloride Level 104, Carbon Dioxide Level 20L, Anion Gap 11, Blood Urea Nitrogen 4L, Creatinine 0.95, Estimat Glomerular Filtration Rate > 60, BUN/Creatinine Ratio 4, Glucose Level 230H, Calcium Level 8.4L, Magnesium Level 1.7L 01/24/19 06:00: Sodium Level 137, Potassium Level 3.7, Chloride Level 102, Carbon Dioxide Level 24, Anion Gap 11, Blood Urea Nitrogen 4L, Creatinine 0.86, Estimat Glomerular Filtration Rate > 60, BUN/Creatinine Ratio 5, Glucose Level 141H, Calcium Level 8.4L, Magnesium Level 1.5L, White Blood Count 4.8, Red Blood Count 3.34L, Hemoglobin 9.3L, Hematocrit 28L, Mean Corpuscular Volume 84, Mean Corpuscular Hemoglobin 28, Mean Corpuscular Hemoglobin Concent 33, Red Cell Distribution Width 23.4H, Platelet Count 151, Mean Platelet Volume 9.2, Neutrophils (%) (Auto) 38L, Lymphocytes (%) (Auto) 47H, Monocytes (%) (Auto) 11, Eosinophils (%) (Auto) 3, Basophils (%) (Auto) 1, Neutrophils # (Auto) 1.8, Lymphocytes # (Auto) 2.3, Monocytes # (Auto) 0.5, Eosinophils # (Auto) 0.1, Basophils # (Auto) 0.0 Assessment/Plan Assessment/Plan Assessment/Plan Hypotension Anemia History of colon cancer Current chemotherapy for colon cancer Diarrhea Antiplatelet therapy after stent placement Patient with recent episodes of diarrhea and found to have blood pressures 60 systolic. Since being admitted this has improved after fluids. His hgb has increased slightly likely from fluids, continue to monitor. He does not see any hi blood in stools still. At this time would keep with conservative measures. Follow labs and transfuse if needed. NPO Today for further evaluation with EGD and Colonoscopy. Patient understands risks and benefits and wishes to proceed. On Protonix BID. Clinical Quality Measures DVT/VTE Risk/Contraindication: Risk Factor Score Per Nursin RFS Level Per Nursing on Admit: 4+=Very High SRIKANTH AGUILAR DO Jan 24, 2019 09:15
[2019-01-24] MEDS: LEVOFLOXACIN 750 MG/150 ML IV 150 ML IV SCH (11:54)
[2019-01-24] MEDS ORDERED: LACTATED RINGERS 1,000 ML IV ONE (12:56)
[2019-01-24] MEDS ORDERED: LACTATED RINGERS 1,000 ML IV STA (13:20)
[2019-01-24] MEDS ORDERED: PROPOFOL INJECTION 50 ML IV ONE (13:21)
[2019-01-24] MEDS ORDERED: MIDAZOLAM 2 MG/2 ML (VERSED) VIAL ONE (13:22)
[2019-01-24] MEDS ORDERED: HURRICAINE EXT TUBE (BENZOCAINE) XX PRN (13:30)
--- NOTE | 2019-01-24 14:30 | Progress Note-Post Operative ---
Post-Operative Progess Note Surgeon (s)/Manager Travel (s) Surgeon SRIKANTH AGUILAR DO Manager Travel: na Pre-Operative Diagnosis coronary artery disease Post-Operative Diagnosis gastritis, gastric submucosal mass normal colon Procedure & Operative Findings Date of Procedure 01/24/19 Procedure Performed/Findings egd with biopsy colonoscopy Anesthesia Type per yardage control clerk Estimated Blood Loss Estimated blood loss (mL): na Specimens/Packing Specimens Removed antrum SRIKANTH AGUILAR DO Jan 24, 2019 14:30
[2019-01-24 16:13] VITALS: BP 129/73
[2019-01-24] MEDS ORDERED: PANT40SU PO (18:11)
--- NOTE | 2019-01-24 18:13 | Discharge Instructions ---
Discharge [facility] Discharge Medications New, Converted or Re-Newed RX: Transmitted to Pharmacy New Medications: Pantoprazole Sodium (Protonix) 40 Mg Amaya. 40 MG PO BID for 14 Days, #28 TAB Continued Medications: Aspirin (Lo-Dose Aspirin EC) 81 Mg Tablet.dr 81 MG PO DAILY, TAB Atorvastatin Calcium (Atorvastatin Calcium) 40 Mg Tablet 40 MG PO HS, TAB Azelaic Acid (Finacea) 50 Gm Gel..gram. TP DAILY, TUBE Capecitabine (Capecitabine) 500 Mg Tablet PO UD, TAB TAKE 4 TABLETS BY MOUTH EVERY 12 HOURS FOR 14 DAYS THEN OFF FOR 7 DAYS Chlorpheniramine Maleate (Chlorpheniramine Maleate) 4 Mg Tablet 4 MG PO BID PRN for ALLERGIES, TAB Clopidogrel Bisulfate (Plavix) 75 Mg Tablet 75 MG PO HS, TAB Cyanocobalamin (Vitamin B-12) (Vitamin B-12) 1,000 Mcg Tablet 1000 MCG PO HS, TAB Ferrous Sulfate (Iron) 325 Mg Tablet 325 MG PO TID, TAB Fluticasone Propionate (Flonase Allergy Relief) 9.9 Ml [place].susp 2 SPRAY NS DAILY PRN for ALLERGIES, EACH Glipizide (Glipizide) 10 Mg Tablet 10 MG PO BID, TAB Lactobacillus Combo No.10 (Probiotic) 1 Each Capsule 1 CAP PO DAILY, CAP Levothyroxine Sodium (Levothyroxine Sodium) 112 Mcg Tablet 112 MCG PO DAILY, TAB Metformin HCl (Metformin HCl) 1,000 Mg Tablet 1000 MG PO BID, TAB Metronidazole (Metronidazole) 45 Gm Cream..g. TP HS, EA Ondansetron (Ondansetron Odt) 8 Mg Tab.rapdis 8 MG PO Q3H PRN for NAUSEA/VOMITING-1ST LINE, TAB Pantoprazole Sodium (Pantoprazole Sodium) 40 Mg Tablet.dr 40 MG PO HS, TAB Pimecrolimus (Elidel) 30 Gm Cream.gm. TP DAILY PRN for PSORIASIS, EA Pioglitazone HCl (Pioglitazone HCl) 30 Mg Tablet 30 MG PO HS, TAB Sitagliptin Phosphate (Januvia) 100 Mg Tablet 100 MG PO DAILY, TAB Discontinued Medications: Chlorpheniramine Maleate (Chlorpheniramine Maleate) 4 Mg Tablet 4 MG PO DAILY, TAB Patient Instructions Goal/Follow Up Appt: f/u with Dr Farmer in 1 week Make sure to keep your appt with Dr Osorio Activity & Diet Discharge Diet: ADA Diet, Cardiac Diet Activity as Tolerated: Yes Copy Copies To 1: EMIL FARMER MD, HOLLY R MD Jan 24, 2019 18:13
--- NOTE | 2019-01-24 18:13 | Discharge Summary ---
Diagnosis/Chief Complaint Date of Admission Jan 22, 2019 at 12:30 Date of Discharge 01/24/2019 Admission Diagnosis Admission Diagnosis See problem list Discharge Diagnosis See Below Problems/Diagnosis: (1) Orthostatic hypotension Assessment & Plan: - Still having hypotension, Continue IVFs @ 125 cc/hr 01/23: Last dose of plavix was Sat, plan for scope on Monday with [facility], Hgb stable, IV iron given 01/24: EDG and Colonoscopy showed some gastritis, will send home with 2 weeks of BID PPI, s/p 2 doses of venofer Status: Acute (2) GI bleed Assessment & Plan: - Hemoccult pending, Hgb trending down 01/23: S/p 1 dose of IV venofer, 2nd dose tomorrow Qualifiers: Qualified Codes: K92.2 - Gastrointestinal hemorrhage, unspecified Status: Resolved (3) Iron deficiency anemia due to chronic blood loss Assessment & Plan: - IV iron infusion Status: Chronic (4) Colon cancer Status: Chronic (5) Hypokalemia Assessment & Plan: - Replaced and repeat BMP Status: Acute (6) Hypomagnesemia Assessment & Plan: - Replace and repeat BMP Status: Acute Chief Complaint/HPI Chief Complaint/HPI 68 yo M who is currently undergoing chemo for colon cancer. Patient came to ER for orthostatic hypotension. Patient states that he has some increased heart rate when he stands up and feels very fatigued. Denies any gross blood in stool. States that he has some burning in his stomach when he eats but otherwise feels fine. Discharge Summary-Simple/Stand Procedures EGD Colonoscopy Consultations Dr Osorio: General Surgery Dr Solares: Cardiology Discharge Physical Examination Allergies: Coded Allergies: No Known Drug Allergies (Unverified , 11/15/18) Vitals & I&Os Vital Sign - Last 12Hours Date Time Temp Pulse Resp B/P (MAP) Pulse Ox O2 Delivery O2 Flow Rate FiO2 01/24/19 16:13 96.0 86 16 129/73 (91) 98 Room Air 01/24/19 14:20 10 Intake and Output 01/24/19 00:00 Intake Total 4710 ml Balance 4710 ml General Appearance: Alert, Oriented X3, Cooperative, No Acute Distress HEENT: Mucous Memb Moist/[place] Respiratory: Clear to Auscultation, Normal Air Movement Cardiovascular: Regular Rate, No Murmurs Abdominal: Normal Bowel Sounds, Soft, No Tenderness, No Masses Extremities: No Edema, No Tenderness/Swelling Skin: No Rashes, No Breakdown Neuro: Normal Gait, Normal Speech, Strength at 5/5 X4 Ext, Sensation Intact, Cranial Nerves 3-12 NL Psych/Mental Status: Mental Status NL, Mood NL Hospital Course Was the Problem List Reviewed?: Yes See final discharge diagnosis. Discussion & Recommendations 68 yo M that presented with orthostatic hypotension. Improved with IVFs and IV iron replacement. At the time of discharge hypotension was resolved and patient was ambulating w/o dizziness or presyncopal episodes. Patient had EGD and Colonoscopy during admission. Placed on protonix BID for 2 weeks then daily. Will have f.u with Dr Osorio. Discharge Condition at discharge Stable Instructions to patient/family Please see electronic discharge instructions given to patient. Discharge Medications Reviewed and agree with Discharge Medication list on patient's Discharge Instruction sheet Clinical Quality Measures DVT/VTE Risk/Contraindication: Risk Factor Score Per Nursin RFS Level Per Nursing on Admit: 4+=Very High Copy Copies To 1: EMIL RITTER MD, HOLLY R MD Jan 24, 2019 18:13
[2019-01-24] MEDS: IRON SUCROSE 200 MG/10 ML (VENOFER) VIAL IV SCH (18:32)
[2019-01-24 19:27] VITALS: BP 129/73
--- NOTE | 2019-01-25 09:12 | OPERATIVE REPORT ---
DATE OF SERVICE: 01/24/2019 PREOPERATIVE DIAGNOSIS: Anemia. POSTOPERATIVE DIAGNOSES: Gastritis, gastric submucosal mass, normal colon. PROCEDURE: EGD with biopsy and colonoscopy. SURGEON: Srikanth Osorio DO ANESTHESIA: Per [employer]ATION MECH[employer]IC. ESTIMATED BLOOD LOSS: None. COMPLICATIONS: None. INDICATIONS: The patient is a 68-year-old male with anemia and having hypertensive episodes. He was explained risks and benefits of procedure, and wished to proceed with procedure. Consent was signed and on the chart. DESCRIPTION OF PROCEDURE: The patient was taken to the endoscopy suite, placed in left lateral recumbent position. Timeout was performed. Scope was inserted in mouth, down the esophagus, stomach and into the duodenum without difficulty. There were no polyps, mass or ulcerations within the duodenum. Scope was slowly withdrawn back to stomach and then the pylorus. Some evidence of some slight gastritis. No active bleeding. Biopsy of the antrum was obtained. Scope was then slowly retracted back into the stomach more. Evidence of a small submucosal mass was present. Scope was retroflexed noting no other pathology. Scope was returned to its normal position, slowly withdrawn to the distal esophagus, which had no polyps, masses or ulcerations. Scope was then slowly retracted back until completely removed. Digital rectal exam was performed. There were no palpable polyps, masses or ulcerations. The scope was inserted in the rectum advanced all way to the ileocolonic anastomosis. Prep was adequate. Scope was then slowly retracted back. There were no polyps, masses or ulcerations or any evidence of bleeding at the ileocolonic anastomosis, transverse colon, descending colon, sigmoid colon and in the rectum. Once in the rectum, scope was retroflexed noting no other pathology. Scope was returned to its normal position and slowly withdrawn until completely removed. RECOMMENDATIONS: The patient would benefit from having endoscopic ultrasound of the submucosal mass in the stomach, possible biopsy. We will arrange for this to be performed. If he continues to have bleeding, would consider capsule endoscopy for further evaluation of the small bowel that is not visualized during endoscopy. The most likely source of bleeding is possibly from the gastritis in the stomach. Therefore, I recommend continuing on Protonix 40 mg b.i.d. for one week and then resume normal dose. This was all communicated with Dr. Real. Job ID: [id number] DocumentID: [id number] Dictated Date: 01/24/2019 22:27:05 Manager Poker Date: 01/25/2019 04:03:03 Dictated By: SRIKANTH OSORIO DO
--- NOTE | 2019-01-28 10:32 | Physician Query Clarification ---
PQ-Link Manifestation-Etiology Admission/Discharge Admission Date: Jan 22, 2019 at 12:25 Discharge Date: Jan 24, 2019 at 19:27 The medical record reflects the following clinical scenario: History/Risk Factors: CA colon on chemo, anemia d/t chronic blood loss Clinical Findings: Hgb 9.5>8.5, diarrhea Treatment: IV Venofer, IV fluids Question: Can you specify if the GI bleed is due to/associated with gastritis and hypotension? Please document a response in the Progress Note or Discharge Summary. 1. Yes - GI bleed is due to/associated with gastritis and hypotension?. 2. No - GI bleed is not due to/associated with gastritis and hypotension. 3. GI bleed d/t gastritis only 4. GI bleed d/t hypotension only 5. Other, with explanation of the clinical findings. 6. Clinically undetermined, no explanation for the clinical findings. PHYSICIAN RESPONSE Manifestation due to/assoic: Clinically undetermined (Per Dr Osorio's scope report he states that the bleeding is likely caused by gastritis but would need capsule endoscopy to rule out other sites of bleeding) Please remember a lack of response to the above will prompt a phone page by CDI/Coding staff. In responding to this query, please exercise your independent professional judgment. The purpose of this communication is to more accurately reflect the complexity of your patients condition. The fact that a question is asked does not imply that any particular answer is desired or expected. Thank you for your timely response to this clarification. Requestors name: Renato THIS PHYSICIAN QUERY FORM IS A PERMANENT PART OF THE MEDICAL RECORD RENATO ERICKSON Jan 28, 2019 10:32 FANYN MORALES MD Feb 06, 2019 09:17
== END 2019-01-24 19:27 | disposition home or self-care (01) | DRG 312 ==
LOC: ER FS 08:20 → 4TH 11:35 → UNDOADMOB 11:35 → 4TH 13:15 → OBSVTOIN 01-22 12:25 → INTOOBSV 01-22 12:30 → UNDODISIN 01-24 19:27
PROVIDERS: ADMIT Family Medicine; ATTEND Family Medicine
PROC: 0DB78ZX Excision of Stomach, Pylorus, Via Natural or Artificial Opening Endoscopic, Diagnostic (ICD-10-PCS; principal; 2019-01-24 13:32)
PROC: 0DJD8ZZ Inspection of Lower Intestinal Tract, Via Natural or Artificial Opening Endoscopic (ICD-10-PCS; 2019-01-24 13:32)
DX: I95.2 Hypotension due to drugs (principal); I95.1 Orthostatic hypotension; C18.9 Malignant neoplasm of colon, unspecified; E86.9 Volume depletion, unspecified; I11.0 Hypertensive heart disease with heart failure; I50.32 Chronic diastolic (congestive) heart failure; T82.855D Stenosis of coronary artery stent, subsequent encounter; I25.10 Atherosclerotic heart disease of native coronary artery without angina pectoris; K92.2 Gastrointestinal hemorrhage, unspecified; D50.0 Iron deficiency anemia secondary to blood loss (chronic); E87.1 Hypo-osmolality and hyponatremia; E87.6 Hypokalemia; E78.5 Hyperlipidemia, unspecified; E03.9 Hypothyroidism, unspecified; E83.42 Hypomagnesemia; K29.70 Gastritis, unspecified, without bleeding; K31.9 Disease of stomach and duodenum, unspecified; E11.9 Type 2 diabetes mellitus without complications; L40.9 Psoriasis, unspecified; Z82.49 Family history of ischemic heart disease and other diseases of the circulatory system; Z95.5 Presence of coronary angioplasty implant and graft; Z86.711 Personal history of pulmonary embolism; Z86.718 Personal history of other venous thrombosis and embolism; Z87.891 Personal history of nicotine dependence; Z85.51 Personal history of malignant neoplasm of bladder
CPT/HCPCS: 36415; 80048; 80053; 81000; 82728; 83540; 83735; 85025; 85027; 87081; 88305; 96360; 96361; G0378

== ENCOUNTER 2019-01-30 12:37 | Outpatient (RCR) | payer MEDICARE ==
[2018-11-21 11:41] LABS: BASOPHILS % (AUTO) 1 % (0-10); EOSINOPHILS # (AUTO) 0.4 10^3/uL (0.0-0.3); EOSINOPHILS % (AUTO) 7 % (0-10); HEMATOCRIT 33 % (40-54); HEMOGLOBIN 10.1 G/DL (13.3-17.7); LYMPHOCYTES # (AUTO) 2.4 X 10^3 (1.0-4.0); LYMPHOCYTES % (AUTO) 38 % (12-44); MEAN CORPUSCULAR HEMOGLOBIN 24 PG (25-34); MEAN CORPUSCULAR HGB CONC 31 G/DL (32-36); MEAN CORPUSCULAR VOLUME 78 FL (80-99); MEAN PLATELET VOLUME 9.4 FL (7.4-10.4); MONOCYTES # (AUTO) 0.3 X 10^3 (0.0-1.0); MONOCYTES % (AUTO) 5 % (0-12); NEUTROPHILS # (AUTO) 3.1 X 10^3 (1.8-7.8); NEUTROPHILS % (AUTO) 50 % (42-75); PLATELET COUNT 351 10^3/uL (130-400); RED CELL DISTRIBUTION WIDTH 18.7 % (10.0-14.5); WHITE BLOOD COUNT 6.3 10^3/uL (4.3-11.0)
[2018-11-21 12:03] LABS: ALANINE AMINOTRANSFERASE 15 U/L (0-55); ALBUMIN 3.8 GM/DL (3.2-4.5); ALKALINE PHOSPHATASE 64 U/L (40-136); BILIRUBIN,TOTAL 0.3 MG/DL (0.1-1.0); BUN/CREATININE RATIO 11; CALCIUM 9.5 MG/DL (8.5-10.1); CARBON DIOXIDE 26 MMOL/L (21-32); CHLORIDE 99 MMOL/L (98-107); GFR ESTIMATED > 60; GLUCOSE 183 MG/DL (70-105); POTASSIUM 4.5 MMOL/L (3.6-5.0); SODIUM 132 MMOL/L (135-145); TOTAL PROTEIN 7.2 GM/DL (6.4-8.2)
[2018-12-03 12:18] LABS: BASOPHILS % (AUTO) 0 % (0-10); EOSINOPHILS # (AUTO) 0.1 10^3/uL (0.0-0.3); EOSINOPHILS % (AUTO) 1 % (0-10); HEMATOCRIT 34 % (40-54); HEMOGLOBIN 11.1 G/DL (13.3-17.7); LYMPHOCYTES # (AUTO) 2.3 X 10^3 (1.0-4.0); LYMPHOCYTES % (AUTO) 22 % (12-44); MEAN CORPUSCULAR HEMOGLOBIN 24 PG (25-34); MEAN CORPUSCULAR HGB CONC 32 G/DL (32-36); MEAN CORPUSCULAR VOLUME 76 FL (80-99); MEAN PLATELET VOLUME 9.7 FL (7.4-10.4); MONOCYTES # (AUTO) 0.4 X 10^3 (0.0-1.0); MONOCYTES % (AUTO) 4 % (0-12); NEUTROPHILS # (AUTO) 7.7 X 10^3 (1.8-7.8); NEUTROPHILS % (AUTO) 73 % (42-75); PLATELET COUNT 221 10^3/uL (130-400); RED CELL DISTRIBUTION WIDTH 18.6 % (10.0-14.5); WHITE BLOOD COUNT 10.4 10^3/uL (4.3-11.0)
[2018-12-03 13:09] LABS: CREATININE SERUM 1.26 MG/DL (0.60-1.30); POTASSIUM 4.5 MMOL/L (3.6-5.0)
[2019-01-02 12:50] LABS: BASOPHILS % (AUTO) 1 % (0-10); EOSINOPHILS # (AUTO) 0.1 10^3/uL (0.0-0.3); EOSINOPHILS % (AUTO) 2 % (0-10); HEMATOCRIT 34 % (40-54); HEMOGLOBIN 10.7 G/DL (13.3-17.7); LYMPHOCYTES # (AUTO) 2.5 X 10^3 (1.0-4.0); LYMPHOCYTES % (AUTO) 35 % (12-44); MEAN CORPUSCULAR HEMOGLOBIN 26 PG (25-34); MEAN CORPUSCULAR HGB CONC 32 G/DL (32-36); MEAN CORPUSCULAR VOLUME 83 FL (80-99); MEAN PLATELET VOLUME 9.4 FL (7.4-10.4); MONOCYTES # (AUTO) 0.6 X 10^3 (0.0-1.0); MONOCYTES % (AUTO) 9 % (0-12); NEUTROPHILS # (AUTO) 3.8 X 10^3 (1.8-7.8); NEUTROPHILS % (AUTO) 54 % (42-75); PLATELET COUNT 276 10^3/uL (130-400); WHITE BLOOD COUNT 7.1 10^3/uL (4.3-11.0)
[2019-01-02 13:52] LABS: ALANINE AMINOTRANSFERASE 15 U/L (0-55); ALBUMIN 3.9 GM/DL (3.2-4.5); ALKALINE PHOSPHATASE 74 U/L (40-136); BILIRUBIN,TOTAL 0.4 MG/DL (0.1-1.0); BUN/CREATININE RATIO 11; CALCIUM 9.5 MG/DL (8.5-10.1); CARBON DIOXIDE 20 MMOL/L (21-32); CHLORIDE 99 MMOL/L (98-107); CREATININE SERUM 1.14 MG/DL (0.60-1.30); GFR ESTIMATED > 60; GLUCOSE 207 MG/DL (70-105); MAGNESIUM 1.7 MG/DL (1.8-2.4); POTASSIUM 4.3 MMOL/L (3.6-5.0); SODIUM 131 MMOL/L (135-145); TOTAL PROTEIN 7.5 GM/DL (6.4-8.2)
[2019-01-16 11:01] LABS: BASOPHILS % (AUTO) 0 % (0-10); EOSINOPHILS # (AUTO) 0.1 10^3/uL (0.0-0.3); EOSINOPHILS % (AUTO) 1 % (0-10); HEMATOCRIT 33 % (40-54); HEMOGLOBIN 10.9 G/DL (13.3-17.7); LYMPHOCYTES # (AUTO) 1.3 X 10^3 (1.0-4.0); LYMPHOCYTES % (AUTO) 23 % (12-44); MEAN CORPUSCULAR HEMOGLOBIN 27 PG (25-34); MEAN CORPUSCULAR HGB CONC 33 G/DL (32-36); MEAN CORPUSCULAR VOLUME 83 FL (80-99); MEAN PLATELET VOLUME 9.4 FL (7.4-10.4); MONOCYTES # (AUTO) 0.3 X 10^3 (0.0-1.0); MONOCYTES % (AUTO) 6 % (0-12); NEUTROPHILS # (AUTO) 4.1 X 10^3 (1.8-7.8); NEUTROPHILS % (AUTO) 71 % (42-75); PLATELET COUNT 167 10^3/uL (130-400); WHITE BLOOD COUNT 5.8 10^3/uL (4.3-11.0)
[2019-01-16 11:21] LABS: ALBUMIN 3.7 GM/DL (3.2-4.5); BILIRUBIN,TOTAL 0.5 MG/DL (0.1-1.0); CALCIUM 8.9 MG/DL (8.5-10.1); CREATININE SERUM 1.19 MG/DL (0.60-1.30); MAGNESIUM 1.1 MG/DL (1.8-2.4); POTASSIUM 3.7 MMOL/L (3.6-5.0); TOTAL PROTEIN 6.8 GM/DL (6.4-8.2)
[~2019-01-30] VITALS: Ht 190.5 cm; Wt 90.3 kg
[~2019-01-30 12:37] MED LIST changes: -ASPI-989 PO; +CYAN-41 PO; -CYAN10006 PO; +D5W 500 ML IV (CANCER CTR) 500 ML IV SCH; +D5W IV SCH; +FOSAPREPITANT DIMEGLUMINE 150 MG in NS (IVPB) CANCER CENTER ONLY 150 ML IV SCH; +LACT1CAP72 PO; +LEVO500T80 PO; +NS IV 1000 ML (CANCER CTR) 1,000 ML ONE; +OXALIPLATIN IV SCH; +PALONOSETRON HCL 0.25 MG, DEXAMETHASONE INJECTION 10 MG in NS (IVPB) CANCER CENTER 50 ML IV SCH; +PANT40SU PO; +[UNRECOGNIZED DRUG - CODE] PO
[2019-01-30 13:37] LABS: BASOPHILS % (AUTO) 1 % (0-10); EOSINOPHILS # (AUTO) 0.2 10^3/uL (0.0-0.3); EOSINOPHILS % (AUTO) 5 % (0-10); HEMATOCRIT 32 % (40-54); HEMOGLOBIN 10.2 G/DL (13.3-17.7); LYMPHOCYTES # (AUTO) 2.1 X 10^3 (1.0-4.0); LYMPHOCYTES % (AUTO) 41 % (12-44); MEAN CORPUSCULAR HEMOGLOBIN 29 PG (25-34); MEAN CORPUSCULAR HGB CONC 32 G/DL (32-36); MEAN CORPUSCULAR VOLUME 89 FL (80-99); MEAN PLATELET VOLUME 9.4 FL (7.4-10.4); MONOCYTES # (AUTO) 0.4 X 10^3 (0.0-1.0); MONOCYTES % (AUTO) 9 % (0-12); NEUTROPHILS # (AUTO) 2.3 X 10^3 (1.8-7.8); NEUTROPHILS % (AUTO) 45 % (42-75); PLATELET COUNT 138 10^3/uL (130-400); RED CELL DISTRIBUTION WIDTH 24.9 % (10.0-14.5); WHITE BLOOD COUNT 5.1 10^3/uL (4.3-11.0)
[2019-01-30 13:59] LABS: BUN/CREATININE RATIO 9; CALCIUM 9.2 MG/DL (8.5-10.1); CARBON DIOXIDE 26 MMOL/L (21-32); CHLORIDE 98 MMOL/L (98-107); CREATININE SERUM 1.18 MG/DL (0.60-1.30); GFR ESTIMATED > 60; GLUCOSE 180 MG/DL (70-105); MAGNESIUM 1.5 MG/DL (1.8-2.4); POTASSIUM 4.5 MMOL/L (3.6-5.0); SODIUM 131 MMOL/L (135-145)
== END 2019-02-12 16:01 | disposition home or self-care (01) ==
LOC: ONC 12:37
PROVIDERS: ATTEND Internal Medicine Hematology & Oncology
DX: Z51.11 Encounter for antineoplastic chemotherapy (principal); C18.2 Malignant neoplasm of ascending colon; C77.2 Secondary and unspecified malignant neoplasm of intra-abdominal lymph nodes; D64.9 Anemia, unspecified; I25.10 Atherosclerotic heart disease of native coronary artery without angina pectoris; E11.9 Type 2 diabetes mellitus without complications; I10 Essential (primary) hypertension; Z85.51 Personal history of malignant neoplasm of bladder; Z79.84 Long term (current) use of oral hypoglycemic drugs; Z79.82 Long term (current) use of aspirin; Z79.899 Other long term (current) drug therapy
CPT/HCPCS: 36415; 36591; 80048; 80053; 82274; 83735; 85025; 87324; 87449; 96360; 96367; 96375; 96413; 96415

== ENCOUNTER → 2019-02-06 | Outpatient (CLI) | payer MEDICARE ==
[~2019-02-06] MED LIST changes: +ASPI-989 PO; +CATHETER FLUSH 10 ML SYR IV PRN; -CYAN-41 PO; +CYAN10006 PO; -D5W 500 ML IV (CANCER CTR) 500 ML IV SCH; -D5W IV SCH; -FOSAPREPITANT DIMEGLUMINE 150 MG in NS (IVPB) CANCER CENTER ONLY 150 ML IV SCH; +HOLD METFORMIN - RECEIVED CONTRAST 20 ML VIAL IV SCH; +IOHEXOL 350 MG/ML 100 ML (OMNIPAQUE 350) VIAL IV ONE; +NS 100 ML (IVPB) BAG IV ONE; -NS IV 1000 ML (CANCER CTR) 1,000 ML ONE; -OXALIPLATIN IV SCH; -PALONOSETRON HCL 0.25 MG, DEXAMETHASONE INJECTION 10 MG in NS (IVPB) CANCER CENTER 50 ML IV SCH; -[UNRECOGNIZED DRUG - CODE] PO
--- NOTE | 2019-02-06 11:54 | Diagnostic Imaging Report ---
PROCEDURE: CT neck soft tissue with contrast. TECHNIQUE: Multiple contiguous axial images were obtained through the neck after the administration of contrast. Auto Exposure Controls were utilized during the CT exam to meet ALARA standards for radiation dose reduction. INDICATION: Left-sided swelling. FINDINGS: Surface marker placed on the neck in the region of clinical complaint corresponds to the nonfocal and unremarkable appearing left parotid gland. The parotid, submandibular glands and the thyroid were unremarkable. No pathological appearing cervical lymph nodes. There is no fluid collection. The nasopharynx, oropharynx and hypopharynx are unremarkable. No airway embarrassment. There is substantial left greater than right carotid atherosclerotic plaques. The visualized pulmonary apices showed COPD. There is no acute bony abnormality. There is a left maxillary sinus mucous retention cyst. IMPRESSION: No abnormality to explain the palpable fullness in the left neck. No adenopathy, mass, fluid collection or mucosal lesion. There is substantial carotid atherosclerosis noted. Dictated by: Dictated on workstation # [id number]
== END ==
LOC: RAD FS 10:19
PROVIDERS: ATTEND Otolaryngology Otolaryngology/Facial Plastic Surgery
DX: I65.23 Occlusion and stenosis of bilateral carotid arteries (principal); K11.23 Chronic sialoadenitis
CPT/HCPCS: 70491

== ENCOUNTER 2019-02-22 10:00 | Outpatient (RCR) | payer MEDICARE ==
[2018-11-28 10:38] LABS: HEMATOCRIT 35 % (40-54); HEMOGLOBIN 10.7 G/DL (13.3-17.7); MEAN CORPUSCULAR HEMOGLOBIN 24 PG (25-34); MEAN CORPUSCULAR HGB CONC 31 G/DL (32-36); MEAN CORPUSCULAR VOLUME 79 FL (80-99); MEAN PLATELET VOLUME 9.2 FL (7.4-10.4); PLATELET COUNT 244 10^3/uL (130-400); RED CELL DISTRIBUTION WIDTH 18.3 % (10.0-14.5)
[2018-11-28 10:39] LABS: BASOPHILS % (AUTO) 1 % (0-10); EOSINOPHILS # (AUTO) 0.2 10^3/uL (0.0-0.3); EOSINOPHILS % (AUTO) 4 % (0-10); LYMPHOCYTES % (AUTO) 33 % (12-44); MONOCYTES # (AUTO) 0.3 X 10^3 (0.0-1.0); MONOCYTES % (AUTO) 4 % (0-12); NEUTROPHILS % (AUTO) 58 % (42-75)
[2018-11-28 10:40] LABS: NEUTROPHILS # (AUTO) 3.5 X 10^3 (1.8-7.8)
[2018-11-28 11:22] LABS: CHLORIDE 91 MMOL/L (98-107); POTASSIUM 4.6 MMOL/L (3.6-5.0); SODIUM 129 MMOL/L (135-145)
[2018-11-28 11:23] LABS: BUN/CREATININE RATIO 17; CALCIUM 9.3 MG/DL (8.5-10.1); CARBON DIOXIDE 18 MMOL/L (21-32); CREATININE SERUM 1.09 MG/DL (0.60-1.30); GFR ESTIMATED > 60; GLUCOSE 323 MG/DL (70-105)
[2019-01-09 11:32] LABS: CARBON DIOXIDE 22 MMOL/L (21-32); CHLORIDE 96 MMOL/L (98-107); POTASSIUM 4.7 MMOL/L (3.6-5.0); SODIUM 132 MMOL/L (135-145)
[2019-01-09 11:33] LABS: BUN/CREATININE RATIO 14; CALCIUM 9.5 MG/DL (8.5-10.1); CREATININE SERUM 1.15 MG/DL (0.60-1.30); GFR ESTIMATED > 60; GLUCOSE 236 MG/DL (70-105); HEMATOCRIT 35 % (40-54); HEMOGLOBIN 11.2 G/DL (13.3-17.7); MEAN CORPUSCULAR HEMOGLOBIN 27 PG (25-34); MEAN CORPUSCULAR HGB CONC 32 G/DL (32-36); MEAN CORPUSCULAR VOLUME 86 FL (80-99); RED CELL DISTRIBUTION WIDTH 23.8 % (10.0-14.5); WHITE BLOOD COUNT 7.3 10^3/uL (4.3-11.0)
[2019-01-09 11:34] LABS: BASOPHILS # (AUTO) 0.1 10^3/uL (0.0-0.1); BASOPHILS % (AUTO) 1 % (0-10); EOSINOPHILS # (AUTO) 0.3 10^3/uL (0.0-0.3); EOSINOPHILS % (AUTO) 3 % (0-10); LYMPHOCYTES # (AUTO) 2.2 X 10^3 (1.0-4.0); LYMPHOCYTES % (AUTO) 30 % (12-44); MEAN PLATELET VOLUME 9.6 FL (7.4-10.4); MONOCYTES # (AUTO) 0.5 X 10^3 (0.0-1.0); MONOCYTES % (AUTO) 7 % (0-12); NEUTROPHILS # (AUTO) 4.3 X 10^3 (1.8-7.8); NEUTROPHILS % (AUTO) 59 % (42-75); PLATELET COUNT 212 10^3/uL (130-400)
[2019-02-06 11:05] LABS: HEMATOCRIT 33 % (40-54); HEMOGLOBIN 10.3 G/DL (13.3-17.7); MEAN CORPUSCULAR HEMOGLOBIN 29 PG (25-34); MEAN CORPUSCULAR HGB CONC 32 G/DL (32-36); MEAN CORPUSCULAR VOLUME 92 FL (80-99); MEAN PLATELET VOLUME 9.3 FL (7.4-10.4); PLATELET COUNT 188 10^3/uL (130-400); RED CELL DISTRIBUTION WIDTH 24.4 % (10.0-14.5); WHITE BLOOD COUNT 3.4 10^3/uL (4.3-11.0)
[2019-02-06 11:06] LABS: BASOPHILS % (AUTO) 1 % (0-10); EOSINOPHILS # (AUTO) 0.2 10^3/uL (0.0-0.3); EOSINOPHILS % (AUTO) 5 % (0-10); LYMPHOCYTES # (AUTO) 1.4 X 10^3 (1.0-4.0); LYMPHOCYTES % (AUTO) 41 % (12-44); MONOCYTES # (AUTO) 0.3 X 10^3 (0.0-1.0); MONOCYTES % (AUTO) 9 % (0-12); NEUTROPHILS # (AUTO) 1.5 X 10^3 (1.8-7.8); NEUTROPHILS % (AUTO) 44 % (42-75)
[2019-02-06 11:28] LABS: POTASSIUM 4.5 MMOL/L (3.6-5.0); SODIUM 133 MMOL/L (135-145)
[2019-02-06 11:29] LABS: BUN/CREATININE RATIO 8; CARBON DIOXIDE 26 MMOL/L (21-32); CHLORIDE 96 MMOL/L (98-107); CREATININE SERUM 1.18 MG/DL (0.60-1.30); GFR ESTIMATED > 60; GLUCOSE 145 MG/DL (70-105)
[~2019-02-22 10:00] MED LIST changes: -ASPI-989 PO; -CATHETER FLUSH 10 ML SYR IV PRN; +CYAN-41 PO; -CYAN10006 PO; -HOLD METFORMIN - RECEIVED CONTRAST 20 ML VIAL IV SCH; -IOHEXOL 350 MG/ML 100 ML (OMNIPAQUE 350) VIAL IV ONE; -NS 100 ML (IVPB) BAG IV ONE; +[UNRECOGNIZED DRUG - CODE] PO
[2019-02-22 10:25] LABS: EOSINOPHILS % (AUTO) 3 % (0-10); HEMATOCRIT 36 % (40-54); HEMOGLOBIN 11.6 G/DL (13.3-17.7); LYMPHOCYTES % (AUTO) 33 % (12-44); MEAN CORPUSCULAR HEMOGLOBIN 30 PG (25-34); MEAN CORPUSCULAR HGB CONC 32 G/DL (32-36); MEAN CORPUSCULAR VOLUME 93 FL (80-99); MEAN PLATELET VOLUME 9.5 FL (7.4-10.4); MONOCYTES % (AUTO) 7 % (0-12); NEUTROPHILS % (AUTO) 57 % (42-75); PLATELET COUNT 162 10^3/uL (130-400); RED CELL DISTRIBUTION WIDTH 19.9 % (10.0-14.5); WHITE BLOOD COUNT 6.9 10^3/uL (4.3-11.0)
[2019-02-22 10:26] LABS: BASOPHILS % (AUTO) 0 % (0-10); EOSINOPHILS # (AUTO) 0.2 10^3/uL (0.0-0.3); LYMPHOCYTES # (AUTO) 2.3 X 10^3 (1.0-4.0); MONOCYTES # (AUTO) 0.5 X 10^3 (0.0-1.0); NEUTROPHILS # (AUTO) 3.9 X 10^3 (1.8-7.8)
[2019-02-22 10:48] LABS: CHLORIDE 94 MMOL/L (98-107); POTASSIUM 4.6 MMOL/L (3.6-5.0); SODIUM 133 MMOL/L (135-145)
[2019-02-22 10:49] LABS: BUN/CREATININE RATIO 13; CALCIUM 9.3 MG/DL (8.5-10.1); CARBON DIOXIDE 22 MMOL/L (21-32); CREATININE SERUM 0.98 MG/DL (0.60-1.30); GFR ESTIMATED > 60; GLUCOSE 183 MG/DL (70-105)
== END 2019-02-26 | disposition home or self-care (01) ==
LOC: LAB FS 10:00
PROVIDERS: ATTEND Internal Medicine Hematology & Oncology
DX: C18.2 Malignant neoplasm of ascending colon (principal); C77.2 Secondary and unspecified malignant neoplasm of intra-abdominal lymph nodes; D64.9 Anemia, unspecified; I25.10 Atherosclerotic heart disease of native coronary artery without angina pectoris; E11.9 Type 2 diabetes mellitus without complications; I10 Essential (primary) hypertension; Z85.51 Personal history of malignant neoplasm of bladder; Z79.84 Long term (current) use of oral hypoglycemic drugs; Z79.82 Long term (current) use of aspirin; Z79.899 Other long term (current) drug therapy
CPT/HCPCS: 36415; 80048; 85025

== ENCOUNTER 2019-02-25 09:07 | Emergency (ER) | payer MEDICARE ==
[~2019-02-25] VITALS: Ht 190.5 cm; Wt 84.4 kg
[2019-02-25] MEDS ORDERED: NS IV 1000 ML 1,000 ML IV SCH (09:45)
--- NOTE | 2019-02-25 10:10 | ED General ---
General Chief Complaint: Cardiac/General Problems Stated Complaint: LOW BP Nursing Triage Note: Patient reports he took his blood pressure this morning and was getting readings of SBP 84-85, he stood and took his blood pressure again and had SBP 70s. He reports feeling lightheaded with movement and activity. Nursing Sepsis Screen: No Definite Risk History of Present Illness Date Seen by Provider: Feb 25, 2019 Time Seen by Provider: 10:06 Initial Comments Patient presents emergency department for evaluation of dizziness in the setting of hypertension. Patient is currently undergoing treatment for colon cancer that has spread to his lymph nodes as he hasn't a resection after the colon cancer was discovered back in September and he is currently receiving chemotherapy orally and infusions with his last infusion on February 13. Patient says that since starting treatment he gets frequent bouts of hypotension and dizziness and he says he feels the same today as he stood up and he becomes very lightheaded and he measured his blood pressure and it was in the 70s to 80s systolic. He has required treatment with IV fluids multiple times in this emergency department. I asked if any providers have considered Midrin and to help boost his blood pressure however he did not think so. Patient denies any pain fevers chills nausea vomiting diarrhea dysuria hematuria shortness of breath or change in bowel color or signs of bleeding. He is in no obvious distress with normal vital signs other than the hypotension Allergies and Home Medications Allergies Coded Allergies: No Known Drug Allergies (Unverified , 11/15/18) Home Medications Aspirin 81 Mg Tablet.dr, 81 MG PO DAILY, (Reported) Atorvastatin Calcium 40 Mg Tablet, 40 MG PO HS, (Reported) Azelaic Acid 50 Gm Gel..gram., TP DAILY, (Reported) Capecitabine 500 Mg Tablet, PO UD, (Reported) TAKE 4 TABLETS BY MOUTH EVERY 12 HOURS FOR 14 DAYS THEN OFF FOR 7 DAYS Chlorpheniramine Maleate 4 Mg Tablet, 4 MG PO BID PRN for ALLERGIES, (Reported) Clopidogrel Bisulfate 75 Mg Tablet, 75 MG PO HS, (Reported) Cyanocobalamin (Vitamin B-12) 1,000 Mcg Tablet, 1,000 MCG PO HS, (Reported) Ferrous Sulfate 325 Mg Tablet, 325 MG PO TID, (Reported) Fluticasone Propionate 9.9 Ml [place].susp, 2 SPRAY NS DAILY PRN for ALLERGIES, (Reported) Glipizide 10 Mg Tablet, 10 MG PO BID, (Reported) Lactobacillus Combo No.10 1 Each Capsule, 1 CAP PO DAILY, (Reported) Levothyroxine Sodium 112 Mcg Tablet, 112 MCG PO DAILY, (Reported) Metformin HCl 1,000 Mg Tablet, 1,000 MG PO BID, (Reported) Metronidazole 45 Gm Cream..g., TP HS, (Reported) Ondansetron 8 Mg Tab.rapdis, 8 MG PO Q3H PRN for NAUSEA/VOMITING-1ST LINE, (Reported) Pantoprazole Sodium 40 Mg Tablet.dr, 40 MG PO HS, (Reported) Pantoprazole Sodium 40 Mg Granpkt.dr, 40 MG PO BID Prescribed by: FANNY MORALES on 01/24/191810 Pimecrolimus 30 Gm Cream.gm., TP DAILY PRN for PSORIASIS, (Reported) Pioglitazone HCl 30 Mg Tablet, 30 MG PO HS, (Reported) Sitagliptin Phosphate 100 Mg Tablet, 100 MG PO DAILY, (Reported) Patient Home Medication List Home Medication List Reviewed: Yes Review of Systems Review of Systems Constitutional: no symptoms reported Respiratory: no symptoms reported Cardiovascular: no symptoms reported Gastrointestinal: no symptoms reported Genitourinary: no symptoms reported Musculoskeletal: no symptoms reported Skin: no symptoms reported Psychiatric/Neurological: Other (dizziness) Past Srcbcla-Myatyb-Meehxv Hx Patient Social History Alcohol Use: Denies Use Number of Drinks Today: BB Alcohol Beverage of Choice: [place] Recreational Drug Use: No Smoking Status: Former Smoker Type Used: Cigarettes Former Smoker, Quit: Jul 04, 1980 2nd Hand Smoke Exposure: No Recent Foreign Travel: No Contact w/Someone Who Travel: No Recent Infectious Disease Expo: No Recent Hopitalizations: Yes (SEP 2018-[place] COLON/SURGERY) Physical Abuse: No Sexual Abuse: No Mistreated: No Fear: No Immunizations Up To Date Tetanus Booster (TDap): Unknown Date of Pneumonia Vaccine: Jul 26, 2016 Date of Influenza Vaccine: May 04, 2018 Seasonal Allergies Seasonal Allergies: No Past Medical History Surgeries: Yes (BLADDER SURGERY-CANCER, COLON RESECTION ) Bowel Surgery, Cardiac, Coronary Stent Respiratory: Yes Pulmonary Embolism Currently Using CPAP: No Currently Using BIPAP: No Cardiac: Yes (stents in 1996, ANGIOPLASTY 06/2018) Coronary Artery Disease, High Cholesterol, Hypertension Neurological: No Sexually Transmitted Disease: No HIV/AIDS: No Genitourinary: Yes (bladder cancer in past) Bladder Infection Gastrointestinal: Yes (COLON CA) Gastrointestinal Bleed Musculoskeletal: No Endocrine: Yes Diabetes, Non-Insulin dep HEENT: Yes (GLASSES) Cataract Loss of Vision: Bilateral Hearing Impairment: Denies Cancer: Yes Bladder, Colon Did You Recieve Any Treatments: Yes What Type of Treatment Did You: Chemotherapy, Surgical Intervention Psychosocial: No Integumentary: Yes Psoriasis Blood Disorders: No (ANEMIA) Adverse Reaction/Blood Tranf: No (HAS HAD BLOOD WITH NO REACTION) Family Medical History Abdominal aortic aneurysm Cardiovascular disease Cataracts Colon cancer Diabetes mellitus Glaucoma Hypertension Myocardial infarction Respiratory disorder Thyroid disease Visual disorder CAD Over 55 Years Old Physical Exam Vital Signs Vital Signs - First Documented 02/25/19 09:10 Temp 97.3 Pulse 100 Resp 16 B/P (MAP) 88/64 (72) Pulse Ox 98 O2 Delivery Room Air Capillary Refill : Less Than 3 Seconds Height, Weight, BMI Height: 6'3.00" Weight: 186lbs. 1.0oz. 84.492537yj; 23.5 BMI Method:Stated General Appearance: No Apparent Distress, WD/WN HEENT: PERRL/EOMI Neck: Supple Respiratory: Lungs Clear, No Respiratory Distress Cardiovascular: Regular Rate, Rhythm Gastrointestinal: Normal Bowel Sounds, Non Tender, Soft Back: Normal Inspection Extremity: Normal Capillary Refill Neurologic/Psychiatric: Alert, Oriented x3 Skin: Normal Color, Warm/Dry Progress/Results/Core Measures Suspected Sepsis Recent Fever Within 48 Hours: No Infection Criteria Present: None New/Unexplained Altered Menta: No Sepsis Screen: No Definite Risk SIRS Temperature:97.3 Pulse: 100 Respiratory Rate: 16 Laboratory Tests 02/25/19 10:10: White Blood Count 8.2 Blood Pressure 88 /64 Mean: 72 Laboratory Tests 02/25/19 10:10: Creatinine 0.93, Platelet Count 171, Total Bilirubin 0.3 Results/Orders Lab Results Laboratory Tests Test 02/25/19 10:10 Range/Units White Blood Count 8.2 4.3-11.0 10^3/uL Red Blood Count 3.36 L 4.35-5.85 10^6/uL Hemoglobin 10.4 L 13.3-17.7 G/DL Hematocrit 31 L 40-54 % Mean Corpuscular Volume 92 80-99 FL Mean Corpuscular Hemoglobin 31 25-34 PG Mean Corpuscular Hemoglobin Concent 34 32-36 G/DL Red Cell Distribution Width 19.0 H 10.0-14.5 % Platelet Count 171 130-400 10^3/uL Mean Platelet Volume 9.5 7.4-10.4 FL Neutrophils (%) (Auto) 72 42-75 % Lymphocytes (%) (Auto) 22 12-44 % Monocytes (%) (Auto) 5 0-12 % Eosinophils (%) (Auto) 1 0-10 % Basophils (%) (Auto) 0 0-10 % Neutrophils # (Auto) 5.9 1.8-7.8 X 10^3 Lymphocytes # (Auto) 1.8 1.0-4.0 X 10^3 Monocytes # (Auto) 0.4 0.0-1.0 X 10^3 Eosinophils # (Auto) 0.1 0.0-0.3 10^3/uL Basophils # (Auto) 0.0 0.0-0.1 10^3/uL Sodium Level 131 L 135-145 MMOL/L Potassium Level 4.2 3.6-5.0 MMOL/L Chloride Level 94 L 98-107 MMOL/L Carbon Dioxide Level 22 21-32 MMOL/L Anion Gap 15 H 5-14 MMOL/L Blood Urea Nitrogen 13 7-18 MG/DL Creatinine 0.93 0.60-1.30 MG/DL Estimat Glomerular Filtration Rate > 60 BUN/Creatinine Ratio 14 Glucose Level 192 H 70-105 MG/DL Calcium Level 8.7 8.5-10.1 MG/DL Corrected Calcium 9.0 8.5-10.1 MG/DL Magnesium Level 1.3 L 1.8-2.4 MG/DL Total Bilirubin 0.3 0.1-1.0 MG/DL Aspartate Amino Transf (AST/SGOT) 17 5-34 U/L Alanine Aminotransferase (ALT/SGPT) 11 0-55 U/L Alkaline Phosphatase 65 40-136 U/L Total Protein 6.4 6.4-8.2 GM/DL Albumin 3.6 3.2-4.5 GM/DL My Orders Orders - SHARON BRITT DO Cbc With Automated Diff (02/25/19 09:31) Comprehensive Metabolic Panel (02/25/19 09:31) Magnesium (02/25/19 09:31) Ns Iv 1000 Ml (Sodium Chloride 0.9%) (02/25/19 09:45) Magnesium 1 Gm/100 Ml Ivpb (Magnesium Dobbs (02/25/19 12:00) Vital Signs/I&O 02/25/19 09:10 Temp 97.3 Pulse 100 Resp 16 B/P (MAP) 88/64 (72) Pulse Ox 98 O2 Delivery Room Air Capillary Refill : Less Than 3 Seconds Blood Pressure Mean: 72 Progress Note : Progress Note Patient with dizziness that has been a common theme throughout his cancer treatment. No concerning signs or symptoms for infection cardiac or other acute pathology my opinion is he says he feels the same as prior episodes. Will check basic labs give a bolus of IV fluids and reassess. Patient's blood pressure improved to 140/70 after a liter of fluids however his magnesium is slightly decreased so I will give a dose of magnesium IV. He also takes oral magnesium replacement. Patient says he feels much better and would like to go home so I will discharge him in stable condition told to follow primary care provider within 2-3 days and he could've his come back to emergency department with worsening dizziness or other general concerns. Patient aware and agreeable with plan for discharge and verbalized understanding of the above instructions. Departure Impression Primary Impression: Hypomagnesemia Additional Impressions: Hypotension Dizziness Disposition: 01 HOME, SELF-CARE Condition: Stable Departure-Patient Inst. Referrals: EMIL RITTER MD (PCP/Family) Primary Care Physician Patient Instructions: Low Blood Pressure, Low Magnesium Level SHARON BRITT DO Feb 25, 2019 10:10
[2019-02-25 10:29] LABS: WHITE BLOOD COUNT 8.2 10^3/uL (4.3-11.0)
[2019-02-25 10:30] LABS: BASOPHILS % (AUTO) 0 % (0-10); EOSINOPHILS # (AUTO) 0.1 10^3/uL (0.0-0.3); EOSINOPHILS % (AUTO) 1 % (0-10); HEMATOCRIT 31 % (40-54); HEMOGLOBIN 10.4 G/DL (13.3-17.7); LYMPHOCYTES # (AUTO) 1.8 X 10^3 (1.0-4.0); LYMPHOCYTES % (AUTO) 22 % (12-44); MEAN CORPUSCULAR HEMOGLOBIN 31 PG (25-34); MEAN CORPUSCULAR HGB CONC 34 G/DL (32-36); MEAN CORPUSCULAR VOLUME 92 FL (80-99); MEAN PLATELET VOLUME 9.5 FL (7.4-10.4); MONOCYTES # (AUTO) 0.4 X 10^3 (0.0-1.0); MONOCYTES % (AUTO) 5 % (0-12); NEUTROPHILS # (AUTO) 5.9 X 10^3 (1.8-7.8); NEUTROPHILS % (AUTO) 72 % (42-75); PLATELET COUNT 171 10^3/uL (130-400)
[2019-02-25 10:45] LABS: ALANINE AMINOTRANSFERASE 11 U/L (0-55); ALBUMIN 3.6 GM/DL (3.2-4.5); ALKALINE PHOSPHATASE 65 U/L (40-136); BILIRUBIN,TOTAL 0.3 MG/DL (0.1-1.0); BUN/CREATININE RATIO 14; CALCIUM 8.7 MG/DL (8.5-10.1); CARBON DIOXIDE 22 MMOL/L (21-32); CHLORIDE 94 MMOL/L (98-107); CREATININE SERUM 0.93 MG/DL (0.60-1.30); GFR ESTIMATED > 60; GLUCOSE 192 MG/DL (70-105); MAGNESIUM 1.3 MG/DL (1.8-2.4); POTASSIUM 4.2 MMOL/L (3.6-5.0); SODIUM 131 MMOL/L (135-145); TOTAL PROTEIN 6.4 GM/DL (6.4-8.2)
[2019-02-25] MEDS ORDERED: MAGNESIUM 1 GM/100 ML IVPB 100 ML IV SCH (12:00)
[2019-02-25 13:47] VITALS: BP 119/54
== END 2019-02-25 13:40 | disposition home or self-care (01) ==
LOC: EDUNIT# 09:07 → ER FS 09:08
DX: I95.9 Hypotension, unspecified (principal); E83.42 Hypomagnesemia; I10 Essential (primary) hypertension; C18.9 Malignant neoplasm of colon, unspecified; C77.9 Secondary and unspecified malignant neoplasm of lymph node, unspecified; C79.11 Secondary malignant neoplasm of bladder; I25.10 Atherosclerotic heart disease of native coronary artery without angina pectoris; E78.00 Pure hypercholesterolemia, unspecified; E11.9 Type 2 diabetes mellitus without complications; Z82.49 Family history of ischemic heart disease and other diseases of the circulatory system; Z80.0 Family history of malignant neoplasm of digestive organs; Z86.711 Personal history of pulmonary embolism; Z95.5 Presence of coronary angioplasty implant and graft; Z87.891 Personal history of nicotine dependence; Z79.82 Long term (current) use of aspirin; Z79.02 Long term (current) use of antithrombotics/antiplatelets; Z79.84 Long term (current) use of oral hypoglycemic drugs
CPT/HCPCS: 36415; 80053; 83735; 85025; 99283

== ENCOUNTER 2019-03-06 17:57 | Emergency (ER) | payer MEDICARE | END 2019-03-07 00:06 | disposition home or self-care (01) | LOC: ER 03-07 00:06 ==

== ENCOUNTER 2019-03-16 20:21 | Inpatient (IN) | payer MEDICARE ==
[~2019-03-16] VITALS: Ht 190.5 cm; Wt 85.3 kg
[2019-03-16] MEDS ORDERED: LACTATED RINGERS 1,000 ML IV ONE (20:35)
--- NOTE | 2019-03-16 20:56 | ED General ---
General Stated Complaint: FEVER; NAUSEA Source of Information: Patient, Family Exam Limitations: No Limitations History of Present Illness Date Seen by Provider: Mar 16, 2019 Time Seen by Provider: 20:25 Initial Comments Here with report of fever, low blood pressure and feeling weak. He has colon cancer and had last chemotherapy last . He has episodes of this where he'll fluctuate on his blood pressure and has had several hospitalizations and/or visits for the same. Reports temperature was 102F today. Has diarrhea but states that's typical. No blood in his stool or urine. Was able to stand for transfer but feels weak. He is currently on Augmentin for infection of the salivary glands. Does have history of C. difficile with multiple antibiotics used before. Timing/Duration: 12 Hours Severity: Moderate Associated Systoms: No Chest Pain, No Cough, No Fever/Chills; Nausea/Vomiting; No Shortness of Air; Weakness Allergies and Home Medications Allergies Coded Allergies: oxaliplatin (Verified Allergy, Intermediate, 03/07/19) Home Medications Aspirin 81 Mg Tablet.dr, 81 MG PO DAILY, (Reported) Atorvastatin Calcium 40 Mg Tablet, 40 MG PO HS, (Reported) Azelaic Acid 50 Gm Gel..gram., TP DAILY, (Reported) Capecitabine 500 Mg Tablet, PO UD, (Reported) TAKE 4 TABLETS BY MOUTH EVERY 12 HOURS FOR 14 DAYS THEN OFF FOR 7 DAYS Chlorpheniramine Maleate 4 Mg Tablet, 4 MG PO BID PRN for ALLERGIES, (Reported) Clopidogrel Bisulfate 75 Mg Tablet, 75 MG PO HS, (Reported) Cyanocobalamin (Vitamin B-12) 1,000 Mcg Tablet, 1,000 MCG PO HS, (Reported) Ferrous Sulfate 325 Mg Tablet, 325 MG PO TID, (Reported) Fluticasone Propionate 9.9 Ml [place].susp, 2 SPRAY NS DAILY PRN for ALLERGIES, (Reported) Glipizide 10 Mg Tablet, 10 MG PO BID, (Reported) Lactobacillus Combo No.10 1 Each Capsule, 1 CAP PO DAILY, (Reported) Levothyroxine Sodium 112 Mcg Tablet, 112 MCG PO DAILY, (Reported) Metformin HCl 1,000 Mg Tablet, 1,000 MG PO BID, (Reported) Metronidazole 45 Gm Cream..g., TP HS, (Reported) Ondansetron 8 Mg Tab.rapdis, 8 MG PO Q3H PRN for NAUSEA/VOMITING-1ST LINE, (Reported) Pantoprazole Sodium 40 Mg Tablet.dr, 40 MG PO HS, (Reported) Pantoprazole Sodium 40 Mg Granpkt.dr, 40 MG PO BID Prescribed by: FANNY MORALES on 01/24/191810 Pimecrolimus 30 Gm Cream.gm., TP DAILY PRN for PSORIASIS, (Reported) Pioglitazone HCl 30 Mg Tablet, 30 MG PO HS, (Reported) Sitagliptin Phosphate 100 Mg Tablet, 100 MG PO DAILY, (Reported) Patient Home Medication List Home Medication List Reviewed: Yes Review of Systems Review of Systems Constitutional: see HPI; No chills, No fever EENTM: no symptoms reported Respiratory: no symptoms reported Cardiovascular: see HPI; No chest pain, No palpitations Gastrointestinal: No abdominal pain; diarrhea, nausea; No vomiting Genitourinary: no symptoms reported Musculoskeletal: no symptoms reported All Other Systems Reviewed Negative Unless Noted: Yes Past Qdvmtlw-Dzlodl-Lhoosa Hx Past Med/Social Hx: Reviewed Nursing Past Med/Soc Hx Patient Social History Alcohol Use: Occasionally Uses Alcohol Beverage of Choice: [place] Recreational Drug Use: No Smoking Status: Former Smoker Type Used: Cigarettes Former Smoker, Quit: Jul 04, 1980 2nd Hand Smoke Exposure: No Recent Hopitalizations: Yes (SEP 2018-[place] COLON/SURGERY) Immunizations Up To Date Tetanus Booster (TDap): Unknown Date of Pneumonia Vaccine: Jul 26, 2016 Date of Influenza Vaccine: May 04, 2018 Seasonal Allergies Seasonal Allergies: No Past Medical History Surgeries: Yes (BLADDER SURGERY-CANCER, COLON RESECTION ) Bowel Surgery, Cardiac, Coronary Stent Respiratory: Yes Pulmonary Embolism Currently Using CPAP: No Currently Using BIPAP: No Cardiac: Yes (stents in 1996, ANGIOPLASTY 06/2018) Coronary Artery Disease, High Cholesterol, Hypertension Neurological: No Sexually Transmitted Disease: No HIV/AIDS: No Genitourinary: Yes (bladder cancer in past) Bladder Infection Gastrointestinal: Yes (COLON CA) Gastrointestinal Bleed Musculoskeletal: No Endocrine: Yes Diabetes, Non-Insulin dep HEENT: Yes (GLASSES) Cataract Loss of Vision: Bilateral Hearing Impairment: Denies Cancer: Yes Bladder, Colon Did You Recieve Any Treatments: Yes What Type of Treatment Did You: Chemotherapy, Surgical Intervention Psychosocial: No Integumentary: Yes Psoriasis Blood Disorders: No (ANEMIA) Adverse Reaction/Blood Tranf: No (HAS HAD BLOOD WITH NO REACTION) Family Medical History Reviewed Nursing Family Hx Abdominal aortic aneurysm Cardiovascular disease Cataracts Colon cancer Diabetes mellitus Glaucoma Hypertension Myocardial infarction Respiratory disorder Thyroid disease Visual disorder CAD Over 55 Years Old Physical Exam-Suspected Sepsis Physical Exam Vital Signs Vital Signs - First Documented 03/16/19 20:30 Temp 99.6 Pulse 109 Resp 16 B/P (MAP) 128/79 (95) Pulse Ox 98 O2 Delivery Room Air Capillary Refill : Height, Weight, BMI Height: 6'3.00" Weight: 187lbs. 1.0oz. [id number]; 23.5 BMI Method:Stated General Appearance: No Apparent Distress, WD/WN HEENT: PERRL/EOMI, Pharynx Normal Neck: Non Tender, Supple Respiratory: Lungs Clear, Normal Breath Sounds Cardiovascular: Regular Rate, Rhythm, No Murmur Gastrointestinal: Non Tender, Soft Back: Normal Inspection, No CVA Tenderness, No Vertebral Tenderness Extremity: Normal Range of Motion, Non Tender Neurologic/Psychiatric: Alert, Oriented x3 Skin: normal color, warm/dry Focused Exam Lactate Level 03/16/19 20:50: Lactic Acid Level 2.52*H Lactic Acid Level Laboratory Tests Test 03/16/19 20:50 Lactic Acid Level 2.52 MMOL/L (0.50-2.00) *H Progress/Results/Core Measures Suspected Sepsis SIRS Temperature: Pulse: Respiratory Rate: Laboratory Tests 03/16/19 20:50: White Blood Count 4.4 Blood Pressure / Mean: 03/16/19 20:50: Lactic Acid Level 2.52*H Laboratory Tests 03/16/19 20:50: Creatinine 1.06, INR Comment 1.2, Platelet Count 59L, Total Bilirubin 0.4 Results/Orders Lab Results Laboratory Tests Test 03/16/19 20:50 03/16/19 21:38 Range/Units White Blood Count 4.4 4.3-11.0 10^3/uL Red Blood Count 3.20 L 4.35-5.85 10^6/uL Hemoglobin 10.1 L 13.3-17.7 G/DL Hematocrit 30 L 40-54 % Mean Corpuscular Volume 93 80-99 FL Mean Corpuscular Hemoglobin 32 25-34 PG Mean Corpuscular Hemoglobin Concent 34 32-36 G/DL Red Cell Distribution Width 17.7 H 10.0-14.5 % Platelet Count 59 L 130-400 10^3/uL Mean Platelet Volume 10.3 7.4-10.4 FL Neutrophils (%) (Auto) 54 42-75 % Lymphocytes (%) (Auto) 36 12-44 % Monocytes (%) (Auto) 9 0-12 % Eosinophils (%) (Auto) 1 0-10 % Basophils (%) (Auto) 0 0-10 % Neutrophils # (Auto) 2.4 1.8-7.8 X 10^3 Lymphocytes # (Auto) 1.6 1.0-4.0 X 10^3 Monocytes # (Auto) 0.4 0.0-1.0 X 10^3 Eosinophils # (Auto) 0.0 0.0-0.3 10^3/uL Basophils # (Auto) 0.0 0.0-0.1 10^3/uL Prothrombin Time 15.3 H 12.2-14.7 SEC INR Comment 1.2 0.8-1.4 Activated Partial Thromboplast Time 28 24-35 SEC Sodium Level 129 L 135-145 MMOL/L Potassium Level 4.2 3.6-5.0 MMOL/L Chloride Level 94 L 98-107 MMOL/L Carbon Dioxide Level 21 21-32 MMOL/L Anion Gap 14 5-14 MMOL/L Blood Urea Nitrogen 13 7-18 MG/DL Creatinine 1.06 0.60-1.30 MG/DL Estimat Glomerular Filtration Rate > 60 BUN/Creatinine Ratio 12 Glucose Level 184 H 70-105 MG/DL Lactic Acid Level 2.52 *H 0.50-2.00 MMOL/L Calcium Level 8.4 L 8.5-10.1 MG/DL Corrected Calcium 8.8 8.5-10.1 MG/DL Magnesium Level 1.6 1.6-2.4 MG/DL Total Bilirubin 0.4 0.1-1.0 MG/DL Aspartate Amino Transf (AST/SGOT) 18 5-34 U/L Alanine Aminotransferase (ALT/SGPT) 17 0-55 U/L Alkaline Phosphatase 66 40-136 U/L Total Protein 6.2 L 6.4-8.2 GM/DL Albumin 3.5 3.2-4.5 GM/DL Urine Color YELLOW Urine Clarity CLEAR Urine pH 6.0 5-9 Urine Specific [place] 1.020 1.016-1.022 Urine Protein NEGATIVE NEGATIVE Urine Glucose (UA) 3+ H NEGATIVE Urine Ketones NEGATIVE NEGATIVE Urine Nitrite NEGATIVE NEGATIVE Urine Bilirubin NEGATIVE NEGATIVE Urine Urobilinogen 0.2 NORMAL MG/DL Urine Leukocyte Esterase NEGATIVE NEGATIVE Urine RBC (Auto) TRACE-I NEGATIVE Urine RBC 0-2 /HPF Urine WBC /HPF Urine Crystals NONE /LPF Urine Bacteria /HPF Urine Casts NONE /LPF Urine Mucus NEGATIVE /LPF Urine Culture Indicated NO Micro Results Microbiology 03/16/19 Influenza Types A,B Antigen (MONALISA) - Final, Complete No growth My Orders Orders - KYLE PIERCE MD Cbc With Automated Diff (03/16/19 20:35) Comprehensive Metabolic Panel (03/16/19 20:35) Blood Culture (03/16/19 20:35) Sputum Culture (03/16/19 20:35) Urinalysis (03/16/19 20:35) Urine Culture (03/16/19 20:35) Protime With Inr (03/16/19 20:35) Partial Thromboplastin Time (03/16/19 20:35) Chest 1 View Ap/Pa Only (03/16/19 20:35) Ed Iv/Invasive Line Start (03/16/19 20:35) Vital Signs Adult Sepsis Patie Q15M (03/16/19 20:35) O2 (03/16/19 20:35) Remove Rings In Anticipation O (03/16/19 20:35) Lactic Acid Analyzer (03/16/19 20:35) Influenza A And B Antigens (03/16/19 20:35) Ed Iv/Invasive Line Start (03/16/19 20:35) Lactated Ringers (Lr 1000 Ml Iv Solution (03/16/19 20:35) Magnesium (03/16/19 21:44) Cefepime Injection (Maxipime Injection) (03/16/19 21:45) Medications Given in ED Current Medications Medications Dose Ordered Sig/Rabia Route Start Time Stop Time Status Last Admin Dose Admin Cefepime HCl 2000 mg/Sterile Water 20 ml @ 240 mls/hr ONCE ONCE IV 03/16/19 21:45 03/16/19 21:49 DC 03/16/19 21:45 240 MLS/HR Lactated Ringer's 1,000 ml @ 0 mls/hr Q0M ONCE IV 03/16/19 20:35 03/16/19 20:36 DC 03/16/19 21:10 999 MLS/HR Vital Signs/I&O 03/16/19 03/16/19 20:30 23:50 Temp 99.6 Pulse 109 105 Resp 16 16 B/P (MAP) 128/79 (95) 114/60 (78) Pulse Ox 98 98 O2 Delivery Room Air Room Air 03/17/19 00:00 Intake Total 20 ml Balance 20 ml Capillary Refill : Progress Note : Progress Note Seen and evaluated. IV, labs, UA, chest x-ray, blood cultures and lactic acid ordered. Influenza screen ordered. LR 1 L bolus. Initial blood pressure on arrival was 120s over 70s and temp was mildly elevated. Sepsis protocol initiated. Monitor patient. 2139: Overall doing better. Given his current situation with colon cancer and being on chemotherapy in the setting of fever, hypotension and elevated lactic acid, admission is indicated. I have discussed the case with Dr. Henderson, on-call for oncology. He is recommending cefepime IV be initiated. Agrees with the blood cultures and studies thus far. Recommends adding stool culture/C. difficile evaluation given patient's history of C. difficile infection and he is currently on Augmentin. 2151: I have discussed the case with Dr. Dempsey who is familiar with the patient. She accepts patient for admission, inpatient status. Continue orders as listed above. I did check magnesium level and that is pending. 2205: Magnesium level is normal. Patient is on oral replacement. Patient to be admitted to [facility] via [facility]. Pending transfer. Patient and family agree with plan. 0001: Remained stable throughout stay. Departed via EMS. Diagnostic Imaging Diagonstic Imaging: Xray Plain Films/CT/US/NM/MRI: chest Comments NAME: HETAL HERNANDEZ [facility] REC#: [id number] PT STATUS: REG ER : 1950 PHYSICIAN: KYLE PIERCE MD ADMIT DATE: 03/16/19/ER FS Signed Date of Exam:03/16/19 CHEST 1 VIEW AP/PA ONLY INDICATION: Fever, nausea, colon cancer. EXAMINATION: Single view of the chest was obtained. FINDINGS: Normal heart size and vascularity. The lungs are clear. There is no effusion or pneumothorax. A Port-A-Cath is present. IMPRESSION: No acute abnormality is seen with no change from 03/06/2019. Dictated by: Dictated on workstation # [id number] Dict: 03/16/192113 Trans: 03/16/192116 [facility] [id number] Interpreted by: MARTINA BRITTON MD Electronically signed by: MARTINA BRITTON MD 03/16/192116 Departure Communication (Admissions) Time/Spoke to Admitting Phy: 21:52 Time/Spoke to Consulting Phy: 21:40 Impression Primary Impression: Fever Qualified Codes: R50.9 - Fever, unspecified Additional Impressions: Elevated lactic acid level Orthostatic hypotension Colon cancer Qualified Codes: C18.9 - Malignant neoplasm of colon, unspecified Disposition: ADMITTED INPATIENT Condition: Stable Admissions Decision to Admit Reason: Admit from ER (General) Decision to Admit/Date: Mar 16, 2019 Time/Decision to Admit Time: 21:40 Departure-Patient Inst. Referrals: EMIL RITTER MD (PCP/Family) Primary Care Physician KYLE PIERCE MD Mar 16, 2019 20:55
[2019-03-16 21:12] LABS: WHITE BLOOD COUNT 4.4 10^3/uL (4.3-11.0)
[2019-03-16 21:13] LABS: BASOPHILS % (AUTO) 0 % (0-10); EOSINOPHILS % (AUTO) 1 % (0-10); HEMATOCRIT 30 % (40-54); HEMOGLOBIN 10.1 G/DL (13.3-17.7); LYMPHOCYTES # (AUTO) 1.6 X 10^3 (1.0-4.0); LYMPHOCYTES % (AUTO) 36 % (12-44); MEAN CORPUSCULAR HEMOGLOBIN 32 PG (25-34); MEAN CORPUSCULAR HGB CONC 34 G/DL (32-36); MEAN CORPUSCULAR VOLUME 93 FL (80-99); MEAN PLATELET VOLUME 10.3 FL (7.4-10.4); MONOCYTES # (AUTO) 0.4 X 10^3 (0.0-1.0); MONOCYTES % (AUTO) 9 % (0-12); NEUTROPHILS # (AUTO) 2.4 X 10^3 (1.8-7.8); NEUTROPHILS % (AUTO) 54 % (42-75); PLATELET COUNT 59 10^3/uL (130-400); RED CELL DISTRIBUTION WIDTH 17.7 % (10.0-14.5)
--- NOTE | 2019-03-16 21:16 | Diagnostic Imaging Report ---
INDICATION: Fever, nausea, colon cancer. EXAMINATION: Single view of the chest was obtained. FINDINGS: Normal heart size and vascularity. The lungs are clear. There is no effusion or pneumothorax. A Port-A-Cath is present. IMPRESSION: No acute abnormality is seen with no change from 03/06/2019. Dictated by: Dictated on workstation # [id number]
[2019-03-16 21:18] LABS: INR 1.2 (0.8-1.4); PROTHROMBIN TIME PATIENT 15.3 SEC (12.2-14.7)
[2019-03-16 21:24] LABS: ALANINE AMINOTRANSFERASE 17 U/L (0-55); ALBUMIN 3.5 GM/DL (3.2-4.5); ALKALINE PHOSPHATASE 66 U/L (40-136); BILIRUBIN,TOTAL 0.4 MG/DL (0.1-1.0); BUN/CREATININE RATIO 12; CALCIUM 8.4 MG/DL (8.5-10.1); CARBON DIOXIDE 21 MMOL/L (21-32); CHLORIDE 94 MMOL/L (98-107); CREATININE SERUM 1.06 MG/DL (0.60-1.30); GFR ESTIMATED > 60; GLUCOSE 184 MG/DL (70-105); POTASSIUM 4.2 MMOL/L (3.6-5.0); SODIUM 129 MMOL/L (135-145); TOTAL PROTEIN 6.2 GM/DL (6.4-8.2)
[2019-03-16] MEDS ORDERED: CEFEPIME INJECTION 2,000 MG in WATER (STERILE) FOR INJECTION 20 ML IV ONE (21:45)
[2019-03-16 21:58] LABS: BILIRUBIN,URINE NEGATIVE (NEGATIVE); CLARITY,URINE CLEAR; COLOR,URINE YELLOW; GLUCOSE, URINE (UA) 3+ (NEGATIVE); KETONES,URINE NEGATIVE (NEGATIVE); LEUKOCYTE ESTERASE ,URINE NEGATIVE (NEGATIVE); NITRITE,URINE NEGATIVE (NEGATIVE); PROTEIN,URINE NEGATIVE (NEGATIVE); UROBILINOGEN,URINE 0.2 MG/DL (NORMAL)
[2019-03-16 21:59] LABS: RBC,URINE 0-2 /HPF
--- NOTE | 2019-03-17 00:41 | NUR ---
HETAL HERNANDEZ admitted to room 413-1, with an admitting diagnosis of fever, increase lactic acid, orthostatic hypotension, colon cancer on chemo, on 03/17/19 from [facility] via EMS, accompanied by EMS staff. HETAL HERNANDEZ introduced to surroundings, call light, bed controls, phone, TV, temperature control, lights, meal times, smoking policy, visitor policy, side rail policy, bathrooms and showers. Patient Rights given to patient in the handbook. HETAL HERNANDEZ verbalizes understanding that [facility] is not responsible for the loss or damage to any personal effects or valuables that are kept in the patients posession during their hospitalization. Patient Care Plans were discussed with the patient. HETAL HERNANDEZ verbalizes understanding of Interdisciplinary Patient Education. Patient was informed about the Rapid Response Team and its purpose.
[2019-03-17] MEDS ORDERED: NS IV 1000 ML 1,000 ML ONE (00:53)
[2019-03-17 01:35] VITALS: BP 129/76
[2019-03-17] MEDS: NS IV 1000 ML 1,000 ML IV SCH ×4 (03:59→19:22)
[2019-03-17 04:56] VITALS: BP 92/59
[2019-03-17 05:51] LABS: BASOPHILS % (AUTO) 0 % (0-10); EOSINOPHILS % (AUTO) 1 % (0-10); HEMATOCRIT 29 % (40-54); HEMOGLOBIN 9.6 G/DL (13.3-17.7); LYMPHOCYTES # (AUTO) 2.2 X 10^3 (1.0-4.0); LYMPHOCYTES % (AUTO) 47 % (12-44); MEAN CORPUSCULAR HEMOGLOBIN 31 PG (25-34); MEAN CORPUSCULAR HGB CONC 33 G/DL (32-36); MEAN CORPUSCULAR VOLUME 94 FL (80-99); MEAN PLATELET VOLUME 10.5 FL (7.4-10.4); MONOCYTES # (AUTO) 0.5 X 10^3 (0.0-1.0); MONOCYTES % (AUTO) 10 % (0-12); NEUTROPHILS % (AUTO) 43 % (42-75); PLATELET COUNT 48 10^3/uL (130-400); RED CELL DISTRIBUTION WIDTH 17.7 % (10.0-14.5); WHITE BLOOD COUNT 4.6 10^3/uL (4.3-11.0)
[2019-03-17 06:16] LABS: ALANINE AMINOTRANSFERASE 15 U/L (0-55); ALBUMIN 3.1 GM/DL (3.2-4.5); ALKALINE PHOSPHATASE 55 U/L (40-136); BILIRUBIN,TOTAL 0.4 MG/DL (0.1-1.0); BUN/CREATININE RATIO 12; CALCIUM 8.1 MG/DL (8.5-10.1); CARBON DIOXIDE 21 MMOL/L (21-32); CHLORIDE 102 MMOL/L (98-107); CREATININE SERUM 1.03 MG/DL (0.60-1.30); GFR ESTIMATED > 60; GLUCOSE 153 MG/DL (70-105); POTASSIUM 4.6 MMOL/L (3.6-5.0); SODIUM 132 MMOL/L (135-145); TOTAL PROTEIN 5.5 GM/DL (6.4-8.2)
[2019-03-17 08:00] VITALS: BP 105/68
[2019-03-17] MEDS: CEFEPIME 2,000 MG/SWFI 20 ML IV PUSH IV SCH ×4 (08:35→20:19)
[2019-03-17 12:00] VITALS: BP 108/71
--- NOTE | 2019-03-17 13:13 | History & Physical-Hospitalist ---
History of Present Illness HPI/Chief Complaint Chief complaint: Fever on chemotherapy for colon cancer History of present illness: This is a 68-year-old white male known to me from prior hospital stays has a past medical history of CAD with stent placement in the past maintained on Plavix and colon cancer status post resection and undergoing chemotherapy at the [facility] who presented to [facility] with fever found to have no evidence of source of fever had elevated white count and lactic acid was normal see his placed in the hospital maintained on cefepime and IV fluids and close monitoring. Currently he reports that he ate breakfast well has had no fever since admission we do have a consult in for Dr. Finney we will restart some of his home medications including Protonix and Pepcid. We will monitor patient closely for any type of sepsis source and continued fever. Source: patient Exam Limitations: no limitations Date Seen 03/17/19 Time Seen by a Provider: 12:00 Attending Physician Stella Dempsey Pankaj K MD Referring Physician Date of Admission Mar 16, 2019 at 22:10 Home Medications & Allergies Home Medications Reviewed patient Home Medication Reconciliation performed by pharmacy medication reconciliations orthodontic lab technician and/or nursing. Patients Allergies have been reviewed. Allergies Allergies Coded Allergies oxaliplatin (Verified Allergy, Intermediate, 03/07/19) Past Jotwhxj-Qrwgou-Nupgfc Hx Past Med/Social Hx: Reviewed Nursing Past Med/Soc Hx, Reviewed and Corrections made Patient Social History Marrital Status: Employed/Student: retired Alcohol Use: Occasionally Uses Number of Drinks Today: BB Alcohol Beverage of Choice: [place] Recreational Drug Use: No Smoking Status: Former Smoker Former Smoker, Quit: Jul 04, 1980 Type Used: Cigarettes 2nd Hand Smoke Exposure: No Physical Abuse Screen: No Sexual Abuse: No Recent Foreign Travel: No Contact w/other who traveled: No Recent Hopitalizations: Yes (SEP 2018-[place] COLON/SURGERY) Recent Infectious Disease Expo: No Immunizations Up To Date Tetanus Booster (TDap): Unknown Date of Pneumonia Vaccine: Jul 26, 2016 Date of Influenza Vaccine: May 04, 2018 Seasonal Allergies Seasonal Allergies: No Past Medical History Surgeries: Abdominal, Bowel Surgery, Cardiac, Coronary Stent Currently Using CPAP: No Currently Using BIPAP: No Cardiac: Coronary Artery Disease, High Cholesterol, Hypertension Sexually Transmitted Disease: No HIV/AIDS: No Genitourinary: Bladder Infection Gastrointestinal: Gastrointestinal Bleed Endocrine: Diabetes, Non-Insulin dep HEENT: Cataract Loss of Vision: Bilateral Hearing Impairment: Denies Cancer: Bladder, Colon Did You Recieve Any Treatments: Yes What Type of Treatment Did You: Chemotherapy, Surgical Intervention Skin/Integumentary: Psoriasis 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) Adverse Reaction to Blood [place]: No (HAS HAD BLOOD WITH NO REACTION) Family History Reviewed Nursing Family Hx Abdominal aortic aneurysm Cardiovascular disease Cataracts Colon cancer Diabetes mellitus Glaucoma Hypertension Myocardial infarction Respiratory disorder Thyroid disease Visual disorder CAD Over 55 Years Old Review of Systems Constitutional: see HPI, fever, malaise, weakness EENTM: no symptoms reported Cardiovascular: no symptoms reported Gastrointestinal: no symptoms reported Genitourinary: no symptoms reported Musculoskeletal: no symptoms reported Skin: no symptoms reported Psychiatric/Neurological: No Symptoms Reported All Other Systems Reviewed Negative Unless Noted: Yes Physical Exam Physical Exam Vital Signs Vital Signs - First Documented 03/16/19 20:30 Temp 99.6 Pulse 109 Resp 16 B/P (MAP) 128/79 (95) Pulse Ox 98 O2 Delivery Room Air Capillary Refill : Less Than 3 Seconds Height, Weight, BMI Height: 6'3.00" Weight: 188lbs. 1.6oz. [id number]; 23.5 BMI Method:Estimated General Appearance: No Apparent Distress, WD/WN, Chronically ill Eyes: Right Eye Normal Inspection, Right Eye PERRL HEENT: PERRL/EOMI, Normal ENT Inspection, Pharynx Normal, Moist Mucous Membranes Neck: Full Range of Motion, Normal Inspection, Non Tender Respiratory: Chest Non Tender, Lungs Clear, Normal Breath Sounds, No Accessory Muscle Use, No Respiratory Distress Cardiovascular: Regular Rate, Rhythm, No Edema, No Gallop, No JVD, No Murmur, Normal Peripheral Pulses Gastrointestinal: Normal Bowel Sounds, No Organomegaly, No Pulsatile Mass, Non Tender, Soft Back: Normal Inspection, No CVA Tenderness, No Vertebral Tenderness Extremity: Normal Capillary Refill, Normal Inspection, Normal Range of Motion, Non Tender, No Calf Tenderness, No Pedal Edema Neurologic/Psychiatric: Alert, Oriented x3, No Motor/Sensory Deficits, Normal Mood/Affect Skin: Normal Color, Warm/Dry Lymphatic: No Adenopathy Results Results/Procedures Labs Laboratory Tests 03/16/19 20:50 03/17/19 05:05 Patient resulted labs reviewed. Assessment/Plan Admission Diagnosis Assessment: Fever Immunosuppressed Chemotherapy for colon cancer CAD s/p stent Hypothyroidism DM Plan: PPI Home meds once reconciled IV abx Supportive care Admission Status: Inpatient Order (span 2 midnights) Reason for Inpatient Admission: Fever in patient currently on cehmotherapy for colon cancer Diagnosis/Problems Diagnosis/Problems (1) Fever Status: Acute Qualifiers: Fever type: unspecified Qualified Codes: R50.9 - Fever, unspecified (2) Elevated lactic acid level Status: Acute (3) Colon cancer Status: Chronic Qualifiers: Colon location: unspecified part of colon Qualified Codes: C18.9 - M alignant neoplasm of colon, unspecified (4) Iron deficiency anemia due to chronic blood loss Status: Chronic (5) GI bleed Status: Resolved (6) Hx pulmonary embolism Status: Chronic (7) History of DVT of lower extremity Status: Chronic (8) Non-insulin dependent type 2 diabetes mellitus Status: Chronic (9) Bladder cancer Status: Resolved Resolution Date/Time: 10/08/18 @ 12:34 (10) Hypothyroidism Status: Chronic (11) CAD (coronary artery disease) Status: Chronic Clinical Quality Measures DVT/VTE Risk/Contraindication: Risk Factor Score Per Nursin RFS Level Per Nursing on Admit: 4+=Very High STELLA DEMPSEY DO Mar 17, 2019 13:13
[2019-03-17] MEDS ORDERED: FAMOTIDINE 20 MG (PEPCID) TABLET PO ONE (16:45)
[2019-03-17 16:55] VITALS: BP 100/66
[2019-03-17 19:53] VITALS: BP 105/66
[2019-03-17] MEDS: FAMOTIDINE 20 MG (PEPCID) TABLET PO SCH (20:19)
[2019-03-18] MEDS: NS IV 1000 ML 1,000 ML IV SCH ×3 (00:33→15:45)
[2019-03-18 00:41] VITALS: BP 108/71
[2019-03-18 05:22] LABS: BASOPHILS % (AUTO) 0 % (0-10); EOSINOPHILS % (AUTO) 1 % (0-10); HEMATOCRIT 26 % (40-54); HEMOGLOBIN 8.5 G/DL (13.3-17.7); LYMPHOCYTES # (AUTO) 1.4 X 10^3 (1.0-4.0); LYMPHOCYTES % (AUTO) 50 % (12-44); MEAN CORPUSCULAR HEMOGLOBIN 31 PG (25-34); MEAN CORPUSCULAR HGB CONC 33 G/DL (32-36); MEAN CORPUSCULAR VOLUME 93 FL (80-99); MEAN PLATELET VOLUME 10.2 FL (7.4-10.4); MONOCYTES # (AUTO) 0.5 X 10^3 (0.0-1.0); MONOCYTES % (AUTO) 16 % (0-12); NEUTROPHILS # (AUTO) 0.9 X 10^3 (1.8-7.8); NEUTROPHILS % (AUTO) 33 % (42-75); PLATELET COUNT 48 10^3/uL (130-400); RED CELL DISTRIBUTION WIDTH 17.7 % (10.0-14.5); WHITE BLOOD COUNT 2.8 10^3/uL (4.3-11.0)
[2019-03-18 05:43] LABS: ALANINE AMINOTRANSFERASE 14 U/L (0-55); ALBUMIN 2.8 GM/DL (3.2-4.5); ALKALINE PHOSPHATASE 55 U/L (40-136); BILIRUBIN,TOTAL 0.4 MG/DL (0.1-1.0); BUN/CREATININE RATIO 10; CALCIUM 7.6 MG/DL (8.5-10.1); CARBON DIOXIDE 21 MMOL/L (21-32); CHLORIDE 104 MMOL/L (98-107); CREATININE SERUM 0.89 MG/DL (0.60-1.30); GFR ESTIMATED > 60; GLUCOSE 176 MG/DL (70-105); POTASSIUM 3.9 MMOL/L (3.6-5.0); SODIUM 132 MMOL/L (135-145)
[2019-03-18 08:00] VITALS: BP 100/67
[2019-03-18] MEDS: CEFEPIME 2,000 MG/SWFI 20 ML IV PUSH IV SCH ×4 (08:03→20:53)
[2019-03-18] MEDS: FAMOTIDINE 20 MG (PEPCID) TABLET PO SCH ×2 (08:03→20:53)
--- NOTE | 2019-03-18 09:33 | Progress Note - Hospitalist ---
Subjective HPI/CC On Admission Date Seen by Provider: Mar 18, 2019 Time Seen by Provider: 09:30 Chief complaint: Fever on chemotherapy for colon cancer History of present illness: This is a 68-year-old white male known to me from prior hospital stays has a past medical history of CAD with stent placement in the past maintained on Plavix and colon cancer status post resection and undergoing chemotherapy at the [facility] who presented to [place] ER with fever found to have no evidence of source of fever had elevated white count and lactic acid was normal see his placed in the hospital maintained on cefepime and IV fluids and close monitoring. Currently he reports that he ate breakfast well has had no fever since admission we do have a consult in for Dr. Finney we will restart some of his home medications including Protonix and Pepcid. We will monitor patient closely for any type of sepsis source and continued fever. Subjective/Events-last exam Appreciate Dr. Finney consultation Apparently salivary gland infection was not improving on oral antibiotics so we will continue inpatient status to continue on the IV antibiotics and await for approval from Dr. Finney for discharge We will Hep-Lock IV fluid We will ambulate in the halls today Restart most home medication but cancer meds per Dr. Finney Check meds and labs Conferred with RN Bowels are moving Eating and drinking well Review of Systems General: Fatigue Focused Exam Lactate Level 03/16/19 20:50: Lactic Acid Level 2.52*H Objective Exam Vital Signs Vital Signs Date Time Temp Pulse Resp B/P (MAP) Pulse Ox O2 Delivery O2 Flow Rate FiO2 03/18/19 08:00 Room Air 03/18/19 08:00 99.2 95 20 100/67 (78) 97 Capillary Refill : Less Than 3 Seconds General Appearance: No Apparent Distress, WD/WN, Chronically ill, Thin Respiratory: Chest Non Tender, Lungs Clear, Normal Breath Sounds, No Accessory Muscle Use, No Respiratory Distress Cardiovascular: Regular Rate, Rhythm, No Edema, No Gallop, No JVD, No Murmur, Normal Peripheral Pulses Neurologic/Psychiatric: Alert, Oriented x3, No Motor/Sensory Deficits, Normal Mood/Affect Results/Procedures Lab Laboratory Tests 03/18/19 05:15 Patient resulted labs reviewed. Assessment/Plan Assessment and Plan Assess & Plan/Chief Complaint Assessment: Fever due to salivary gland infection failed PO abx Immunosuppressed with neutropenia today Chemotherapy for colon cancer CAD s/p stent Hypothyroidism DM Plan: PPI Home meds IV abx Supportive care Ambulate HLIVF Diagnosis/Problems Diagnosis/Problems (1) Salivary gland infection Status: Acute (2) Fever Status: Acute Qualifiers: Fever type: unspecified Qualified Codes: R50.9 - Fever, unspecified (3) Elevated lactic acid level Status: Acute (4) Colon cancer Status: Chronic Qualifiers: Colon location: unspecified part of colon Qualified Codes: C18.9 - Malignant neoplasm of colon, unspecified (5) Iron deficiency anemia due to chronic blood loss Status: Chronic (6) GI bleed Status: Resolved (7) Hx pulmonary embolism Status: Chronic (8) History of DVT of lower extremity Status: Chronic (9) Non-insulin dependent type 2 diabetes mellitus Status: Chronic (10) Bladder cancer Status: Resolved Resolution Date/Time: 10/08/18 @ 12:34 (11) Hypothyroidism Status: Chronic (12) CAD (coronary artery disease) Status: Chronic Clinical Quality Measures DVT/VTE Risk/Contraindication: Risk Factor Score Per Nursin RFS Level Per Nursing on Admit: 4+=Very High LEONARDO GARRIDO DO Mar 18, 2019 09:33
[2019-03-18] MEDS ORDERED: DIPH1TAB PO (09:52)
[2019-03-18] MEDS ORDERED: MAGN400C PO (09:52)
--- NOTE | 2019-03-18 11:51 | CONSULTATION REPORT ---
DATE OF SERVICE: 03/18/2019 The patient is admitted to room 413. PHYSICIAN REQUESTING CONSULTATION: Stella Dempsey DO IMPRESSION: 1. A 68-year-old male admitted with fever of 102 degrees Fahrenheit. The patient was on outpatient antibiotic therapy for a left salivary gland infection for over 1 week with no improvement. 2. Currently on IV antibiotics with cefepime and afebrile. 3. Hypotension, which has been a chronic problem over the past several months. Initial improvement with IV fluids, but has recurrent orthostatic hypotension. Workup for adrenal insufficiency ongoing. 4. 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 Currently, on adjuvant chemotherapy with CAPE-OX regimen and was on the fourth course of chemotherapy when he was admitted to the hospital. 5. Neutropenia grade III. 6. Hold further chemotherapy, especially with fever, infection and neutropenia. 7. History of significant coronary artery disease and stent placement with an MA in 06/2018 requiring stent placement later on. Currently, on Plavix and baby aspirin. Continue. 8. Previous history of VTE and was on anticoagulation with warfarin. This has been on hold. Continue SCDs for DVT prophylaxis while in the hospital. RECOMMENDATIONS: 1. Continue IV antibiotics as the left salivary gland pain and swelling is Improving. Previously, he had no significant response to one week of oral antibiotic therapy with Augmentin. 2. Stage III colon cancer and on chemotherapy. Because of the neutropenia, thrombocytopenia and anemia, I will hold further chemotherapy at this point until he recovers from the current infection. 3. Continue double antiplatelet therapy because of coronary artery disease and recent stent placement. Need to monitor for any bleeding as he has new onset thrombocytopenia. 4. Orthostatic hypotension initially improved with IV hydration. Continue to monitor. Consult physical therapy for strengthening and ambulation. Once the workup for adrenal insufficiency is done, the patient may need glucocorticoid/mineralocorticoid. 5. We will follow the patient with you. BRIEF HISTORY: The patient is a 68-year-old male, who presented to the emergency room in [place] with reported history of fever to 102 degrees Fahrenheit at home. One week prior to this, he was complaining of swelling in his left side of the face and pain. He was evaluated by his primary physician and started on Augmentin. He was also evaluated by Dr. Patel and advised to continue the antibiotic therapy. But after one week of treatment, he still continued to have discomfort and spiked a fever before he went to the emergency room. He was also found to be hypotensive and it was decided to admit him to the hospital with broad spectrum IV antibiotic therapy as well as IV fluids. The patient is feeling better and has been afebrile for the last 36 hours. The left-sided facial swelling and pain is improving. He still continues to have dizziness when trying to get up from the bed on ambulation. He is on chemotherapy with CAPE-OX regimen for stage III ascending colon cancer and underwent right hemicolectomy during spring. He was on the fourth course of chemotherapy and has completed 9 days of oral chemotherapy before presenting to the emergency room. The chemotherapy has been on hold since then. PAST MEDICAL HISTORY: Significant for significant coronary artery disease requiring stent placements in the past and most recently a few months ago. He is on double antiplatelet therapy because of this. Also has previous history of venous thromboembolism and was on anticoagulation with warfarin that has been on hold. He continues to have significant hypotension, which seems to improve with IV fluids, but is limiting his activity level. He is undergoing workup to rule out adrenal insufficiency. Other significant history includes hypertension and hypercholesterolemia. He has had a remote history of superficial bladder cancer requiring TURBT followed by BCG treatment. He is on surveillance now with no evidence of recurrence. He gives previous history of GI bleeding. He has diabetes mellitus type 2. He has history of psoriasis. PAST SURGICAL HISTORY: Include TURBT, right hemicolectomy, coronary stent placement, bilateral cataract surgeries. SOCIAL HISTORY: The patient is and lives in [place], [place]. He has a previous history of tobacco use, but quit in 1979. No significant alcohol or recreational drug use. PHYSICAL EXAMINATION: GENERAL: Showed an elderly male, well developed and nourished, awake and oriented, in no acute distress. VITAL SIGNS: His temperature was 98.5, pulse rate of 95, respirations 20, blood pressure 108/71 with oxygen saturation of 98% on room air. Postural blood pressures are pending. HEENT: Normocephalic with male pattern baldness, extraocular muscles intact, conjunctivae slightly pale, oral mucosa moist. NECK: Supple with no JVD. The patient had slight swelling in the left parotid gland area and angle of jaw with palpable lymph node, which was tender. There is no erythema on the overlying skin. No supraclavicular or axillary lymphadenopathy palpable. CHEST: Symmetrical. LUNGS: Fairly clear to auscultation without wheezes or rales. CARDIOVASCULAR: Regular in rate and rhythm. No murmurs or gallops heard. ABDOMEN: Soft, nontender with no hepatosplenomegaly or other masses palpable. EXTREMITIES: Showed no edema. NEUROLOGIC: Showed no focal motor deficits. LABORATORY DATA: CBC done at the emergency room on 03/16/2019 at night showed WBC 4.4, hemoglobin 10.1 and platelet count of 59,000 with neutrophil count 2.4 and lymphocyte count 1.6. CBC done today morning showed total white count of 2.8, hemoglobin 8.5 and platelet count of 48,000 with neutrophil count 0.9 and lymphocyte count 1.4. Chemistry panel done today showed sodium level of 132 with a glucose of 176. Rest of the electrolytes were within normal limits. BUN was 9 and creatinine 0.89 with GFR more than 60 mL per minute. Liver function studies were within normal limits except albumin level of 2.8. Protime was 15.3 with INR of 1.2. Urinalysis was unremarkable except for 3+ glucose. Chest x-ray done at the emergency room showed no acute abnormality and no change from the previous exams. Thank you for allowing me to participate in this patient's care. I will continue to follow the patient with you in Dr. Berrios' absence. Job ID: [id number] DocumentID: [id number] Dictated Date: 03/18/2019 11:23:32 Record Press Operator Date: 03/18/2019 11:51:06 Dictated By: BILLY BOUCHER MD MTDJennifer
[2019-03-18 15:28] VITALS: BP 107/62
[2019-03-18 15:29] VITALS: BP_SYST 104; BP_SYST 64; BP_DIAS 46; BP_DIAS 66
[2019-03-18] MEDS: ONDANSETRON 4 MG/2 ML (SDV) Z0FRAN IVP PRN ×2 (15:48→20:52)
[2019-03-18] MEDS: ACETAMINOPHEN 500 MG TAB (TYLENOL) PO PRN (18:33)
[2019-03-19] MEDS: NS IV 1000 ML 1,000 ML IV SCH ×3 (00:35→21:16)
[2019-03-19 00:37] VITALS: BP 95/60
[2019-03-19] MEDS: ACETAMINOPHEN 500 MG TAB (TYLENOL) PO PRN (04:20)
[2019-03-19 08:00] VITALS: BP 90/68
[2019-03-19] MEDS: CEFEPIME 2,000 MG/SWFI 20 ML IV PUSH IV SCH ×4 (08:37→21:14)
[2019-03-19] MEDS: FAMOTIDINE 20 MG (PEPCID) TABLET PO SCH ×2 (08:38→21:15)
--- NOTE | 2019-03-19 08:54 | NUR ---
SPOKE WITH PT WELL GOING THRU THE EXTERNAL MED LIST. THE MED REC WAS ALREADY DONE OVER THE HOLIDAY WEEKEND BY THE NURSE AND THERE WERE NO DISCREPANCIES TO REPORT
[2019-03-19] MEDS ORDERED: fluCOnazole (DIFLUCAN) 100 MG TAB PO NR (09:13)
--- NOTE | 2019-03-19 10:13 | Physical Therapy Evaluation ---
PT Evaluation-General Medical Diagnosis Admission Date Mar 16, 2019 at 22:10 Medical Diagnosis: fever Onset Date: Mar 16, 2019 Therapy Diagnosis Therapy Diagnosis: debility/weakness Height/Weight Height (Feet): 6 Height (Inches): 3.00 Weight (Pounds): 188 Weight (Ounces): 1.6 Precautions Precautions/Isolations: Standard Precautions Weight Bear Status Right Lower Extremity: Right Weight Bearing/Tolerated Left Lower Extremity: Left Weight Bearing/Tolerated Referral Physician: Santiago Reason for Referral: Evaluation/Treatment Medical History Pertinent Medical History: CAD, DM, HTN, Hypothroidism Current History Admit secondary to fever from Chemo Reviewed History: Yes Social History Home: Single Level Current Living Status: Spouse Prior/Core FIM Prior Level of Function Therapy Code Descriptions/Definitions Functional [place] Measure: 0=Not Assessed/NA 4=Minimal Assistance 1=Total Assistance 5=Supervision or Setup 2=Maximal Assistance 6=Modified [place] 3=Moderate Assistance 7=Complete [place] Therapy Quality Codes: 6 Independent with activity with or without an assistive device 5 Patient requires set up or clean up by helper. Patient completes activity by themselves 4 Supervision or touching assist (CGA). [place] provide cues , steadying assist 3 The helper provides less than half the effort to complete the activity 2 The helper provides more than half the effort to complete the activity 1 Dependent. The helper does all the effort to complete an activity 7 Patient refused to complete or attempt activity 9 The patient did not perform the activity before the current illness or injury 88 Not attempted due to Medical conditions or safety concerns Functional Abilities and Goals: Independent: Patient completed the activities by him/herself, with or without an assistive device, with no assistance from a helper. Needed Some Help: Patient needed partial assistance from another person to complete activities. Dependent: A helper completed the activities for the patient. Unknown: Not Applicable: Bed Mobility: 7 Transfers (B,C,W/C) (FIM): 7 Gait: 7 Indoor Mobility (Ambulation): Independent Stairs: Independent Prior Devices Use: None PT Evaluation-Current Subjective Patient agrees to PT. C/o decreased BP. Pain Numeric Pain Scale: 5-Moderate Pain Location: Left Location Body Site: Cheek Pain Description: Pressure Objective Patient Orientation: Normal For Age Problem Solving: Fair Attachments: IV ROM/Strength ROM Lower Extremities bilateral LE WFL Strength Lower Extremities 4/5 grossly bilateral LE Integumentary/Posture Integumentary refer to nursing notes Bowel Incontinence: No Bladder Incontinence: No Posture WFL Neuromuscular (Tone, Coordination, Reflexes) grossly intact Sensory Vision: Functional Hearing: Functional Sensation Right Lower Extremit: Impaired Sensation Left Lower Extremity: Impaired Transfers Therapy Code Descriptions/Definitions Functional [place] Measure: 0=Not Assessed/NA 4=Minimal Assistance 1=Total Assistance 5=Supervision or Setup 2=Maximal Assistance 6=Modified [place] 3=Moderate Assistance 7=Complete [place] Transfers (B, C, W/C) (FIM): 7 Scootin Rollin Supine to/from Sit: 7 Sit to/from Stand: 7 Gait Mode of Locomotion: Walk Anticipated Mode of Locomotion: Walk Gait (FIM): 1 Distance (FIM): 1=up to 49 ft Distance: 15' Gait Level of Assist: 7 Gait Assistive Device: None Comments/Gait Description functional Balance Sitting Static: Normal Sitting Dynamic: Normal Standing Static: Fair Standing Dynamic: Fair Treatment BP in sit 75/48 with HR 106/improved to 90/61 with HR 109 Assessment/Needs 68 y.o. male, will benefit from short term skilled PT to address functional strength and mobility to improve current LOF to safely return to home at maximum LOF. Rehab Potential: Guarded PT Short Term Goals Short Term Goals Time Frame: Mar 23, 2019 Transfers (B,C,W/C) (FIM): 7 Gait (FIM): 7 Distance (FIM): 3=150 ft Gait Level of Assist: 7 Gait Assistive Device: None PT Plan Problem List Problem List: Activity Tolerance, Other (low BP) Treatment/Plan Treatment Plan: Continue Plan of Care Treatment Plan: Education, Functional Activity Basilio, Functional Strength, Gait, Safety, Therapeutic Exercise, Transfers Treatment Duration: Mar 23, 2019 Frequency: 6 times per week Estimated Hrs Per Day: .25 hour per day Patient and/or Family Agrees t: Yes Time/GCodes Time In: 848 Time Out: 905 Total Billed Treatment Time: 17 Total Billed Treatment 1 visit EVMod 17 min LEANNE PETERSON PT Mar 19, 2019 10:13
[2019-03-19 10:50] LABS: HEMOGLOBIN 9.1 G/DL (13.3-17.7); MEAN PLATELET VOLUME 10.4 FL (7.4-10.4); RED CELL DISTRIBUTION WIDTH 17.3 % (10.0-14.5); WHITE BLOOD COUNT 2.7 10^3/uL (4.3-11.0)
[2019-03-19 11:13] LABS: ALANINE AMINOTRANSFERASE 16 U/L (0-55); ALKALINE PHOSPHATASE 53 U/L (40-136); BILIRUBIN,TOTAL 0.5 MG/DL (0.1-1.0); BUN/CREATININE RATIO 10; CALCIUM 7.7 MG/DL (8.5-10.1); CARBON DIOXIDE 20 MMOL/L (21-32); CHLORIDE 104 MMOL/L (98-107); CREATININE SERUM 0.99 MG/DL (0.60-1.30); GFR ESTIMATED > 60; GLUCOSE 201 MG/DL (70-105); POTASSIUM 3.4 MMOL/L (3.6-5.0); SODIUM 129 MMOL/L (135-145); TOTAL PROTEIN 5.3 GM/DL (6.4-8.2)
--- NOTE | 2019-03-19 14:41 | NUR ---
The pt and his , Antoinette are members of [employer] (of [employer] affiliation) and live in [facility]. 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 The pt requested prayer for healing, as well as strength for his . After sharing in prayer, the pt thanked me for visiting.
--- NOTE | 2019-03-19 15:31 | Progress Note ---
Subjective Subjective/Events-last exam Febrile to 100.4 this am. States feeling lightheaded and tired. Focused Exam Lactate Level 03/16/19 20:50: Lactic Acid Level 2.52*H Objective Exam Last Set of Vital Signs Vital Signs Date Time Temp Pulse Resp B/P (MAP) Pulse Ox O2 Delivery O2 Flow Rate FiO2 03/19/19 08:00 Room Air 03/19/19 08:00 99.6 100 20 90/68 (75) 98 Capillary Refill : Less Than 3 Seconds I&O Intake and Output 03/19/19 00:00 Intake Total 2360 ml Balance 2360 ml Intake Oral 1360 ml IV Total 1000 ml # Voids 10 # Bowel Movements 3 General: Alert, No Acute Distress Lungs: Clear to Auscultation, Normal Air Movement Heart: Regular Rate, No Murmurs Abdomen: Normal Bowel Sounds, Soft, Other (mild mid abdominal ttp) Extremities: No Edema Neuro: Normal Speech Psych/Mental Status: Mental Status NL Results/Procedures Lab Laboratory Tests 03/19/19 09:03: Glucometer 185H 03/19/19 10:41: White Blood Count 2.7L, Red Blood Count 2.90L, Hemoglobin 9.1L, Hematocrit 27L, Mean Corpuscular Volume 92, Mean Corpuscular Hemoglobin 31, Mean Corpuscular Hemoglobin Concent 34, Red Cell Distribution Width 17.3H, Platelet Count 64L, Mean Platelet Volume 10.4, Sodium Level 129L, Potassium Level 3.4L, Chloride Level 104, Carbon Dioxide Level 20L, Anion Gap 5, Blood Urea Nitrogen 10, Creatinine 0.99, Estimat Glomerular Filtration Rate > 60, BUN/Creatinine Ratio 10, Glucose Level 201H, Calcium Level 7.7L, Corrected Calcium 8.5, Total Bilirubin 0.5, Aspartate Amino Transf (AST/SGOT) 16, Alanine Aminotransferase (ALT/SGPT) 16, Alkaline Phosphatase 53, Total Protein 5.3L, Albumin 3.0L Microbiology 03/16/19 Blood Culture - Preliminary, Resulted No growth 03/17/19 C. difficile GDH Antigen & Toxins - Final, Complete 03/17/19 Stool Culture - Final, Complete See Comments 03/16/19 Influenza Types A,B Antigen (MONALISA) - Final, Complete No growth 03/16/19 Urine Culture - Final, Complete NO GROWTH Assessment/Plan Assessment/Plan (1) Orthostatic hypotension Status: Acute Assessment & Plan: Recurrent problem for him, has been being worked up outpatient for adrenal insufficiency. Minimal improvement with IVF, appreciate Onc recommendations and follow up on outpatient work-up. (2) Fever Status: Acute Assessment & Plan: Suspect related to salivary gland infection that had been treated outpatient unsuccessfully. CXR okay, UA okay. On cefepime. Qualifiers: Qualified Codes: R50.9 - Fever, unspecified (3) Salivary gland infection Status: Acute Assessment & Plan: See above. (4) Pancytopenia Status: Acute Assessment & Plan: History of iron deficiency anemia, but currently has low WBC and platelets as well. Followed by Heme/Onc for colon ca, appreciate recommendations. (5) Hyponatremia Status: Acute Assessment & Plan: IV rehydration. (6) Colon cancer Status: Chronic Assessment & Plan: Holding chemotherapy currently, appreciate Oncology recommendations. Qualifiers: Qualified Codes: C18.9 - Malignant neoplasm of colon, unspecified (7) Iron deficiency anemia due to chronic blood loss Status: Chronic Assessment & Plan: Monitor, continue home iron and B12, transfuse if needed. (8) Non-insulin dependent type 2 diabetes mellitus Status: Chronic Assessment & Plan: Hold home meds due to acute illness, sliding scale insulin as needed, diabetic diet. (9) History of DVT of lower extremity Status: Chronic Assessment & Plan: Previously on anticoagulation, on hold due to chronic blood loss. (10) DVT prophylaxis Status: Acute Assessment & Plan: No pharmacologic due to history of GI bleeding/anemia. Clinical Quality Measures DVT/VTE Risk/Contraindication: Risk Factor Score Per Nursin RFS Level Per Nursing on Admit: 4+=Very High ANTOINE JEAN MD Mar 19, 2019 15:31
[2019-03-19 17:06] VITALS: BP 105/58
--- NOTE | 2019-03-19 17:32 | Progress Note ---
Standard Progress Note Progress Notes/Assess & Plan Date Seen by a Provider: Mar 19, 2019 Time Seen by a Provider: 17:27 Progress/Assessment & Plan 68-year-old male admitted with febrile illness and abdominal symptoms. Patient has history of stage III colon cancer and is on adjuvant chemotherapy with cape ox regimen completing for cycle approximately 11 days ago. He has had significant and symptomatic postural hypotension. Recently mini ACTH stimulation was done on an outpatient basis with borderline or inadequate response. Stool studies obtained at the time of admission is growing yeast and is negative for C. difficile toxin. Patient is having low-grade fever today and does not feel well. He is eating slightly more today. Currently on normal saline IV at 100 mL per hour. In spite of this he had significant postural hypotension this morning. I will start the patient on hydrocortisone 20 mg in the morning and 10 mg in the afternoon. I'll also start him on Diflucan 200 mg loading dose and then 100 mg daily orally. Hold further chemotherapy with Xeloda for the current cycle. Dr. Berrios will return tomorrow and assume oncology care. Focused Exam Lactate Level 03/16/19 20:50: Lactic Acid Level 2.52*H BILLY BOUCHER Mar 19, 2019 17:32
[2019-03-19] MEDS: ONDANSETRON 4 MG/2 ML (SDV) Z0FRAN IVP PRN ×2 (17:39→23:29)
[2019-03-19] MEDS ORDERED: [UNRECOGNIZED DRUG - OTHER] PO PRN (20:00)
[2019-03-19] MEDS ORDERED: ATROPINE PO PRN (20:00)
[2019-03-19] MEDS ORDERED: NON-FORMULARY MEDICATION 1 EA EA (Fluticasone Propionate (Flonase Allergy Relief) 2 SPRAY) NS PRN (20:00)
[2019-03-19] MEDS ORDERED: NON-FORMULARY MEDICATION 1 EA EA (Ondansetron (Ondansetron Odt) 8 MG) PO PRN (20:00)
[2019-03-19] MEDS ORDERED: DIPHENOXYLATE HCL PO PRN (20:00)
[2019-03-19] MEDS ORDERED: DIPHENOXYLATE/ATROPINE 2.5MG/0.025MG (LOMOTIL) TAB PO PRN (20:15)
[2019-03-19] MEDS ORDERED: FLUTICASONE NASAL SPRAY (FLONASE) 16 GM BTL NS PRN (20:15)
[2019-03-19] MEDS ORDERED: ONDANSETRON 4 MG (ZOFRAN) ORAL DISSOLVE TAB PO PRN (20:15)
[2019-03-19] MEDS: ATORVASTATIN 40 MG (LIPITOR) TABLET PO SCH (21:15)
[2019-03-19] MEDS: CLOPIDOGREL 75 MG (PLAVIX) TABLET PO SCH (21:15)
[2019-03-19] MEDS: CYANOCOBALAMIN 1,000 MCG (VITAMIN B-12) TABLET PO SCH (21:15)
[2019-03-19] MEDS: PANTOPRAZOLE 40 MG (PROTONIX) TAB PO SCH (21:15)
[2019-03-19 23:26] VITALS: BP 104/62
[2019-03-20] MEDS: HYDROCORTISONE 20 MG (CORTEF) TAB PO SCH ×2 (05:51→16:53)
[2019-03-20] MEDS: LEVOTHYROXINE 112 MCG (LEVOTHROID) TAB PO SCH (05:52)
[2019-03-20] MEDS: FERROUS SULF 325 MG (IRON) TAB PO SCH ×3 (05:52→16:52)
[2019-03-20 06:18] LABS: BASOPHILS % (AUTO) 0 % (0-10); EOSINOPHILS % (AUTO) 1 % (0-10); HEMATOCRIT 24 % (40-54); HEMOGLOBIN 8.1 G/DL (13.3-17.7); LYMPHOCYTES # (AUTO) 1.3 X 10^3 (1.0-4.0); LYMPHOCYTES % (AUTO) 43 % (12-44); MEAN CORPUSCULAR HEMOGLOBIN 31 PG (25-34); MEAN CORPUSCULAR HGB CONC 34 G/DL (32-36); MEAN CORPUSCULAR VOLUME 93 FL (80-99); MEAN PLATELET VOLUME 10.3 FL (7.4-10.4); MONOCYTES # (AUTO) 0.5 X 10^3 (0.0-1.0); MONOCYTES % (AUTO) 18 % (0-12); NEUTROPHILS # (AUTO) 1.1 X 10^3 (1.8-7.8); NEUTROPHILS % (AUTO) 38 % (42-75); PLATELET COUNT 67 10^3/uL (130-400); RED CELL DISTRIBUTION WIDTH 17.5 % (10.0-14.5)
[2019-03-20 06:39] LABS: BUN/CREATININE RATIO 10; CALCIUM 7.3 MG/DL (8.5-10.1); CARBON DIOXIDE 17 MMOL/L (21-32); CHLORIDE 107 MMOL/L (98-107); CREATININE SERUM 0.88 MG/DL (0.60-1.30); GFR ESTIMATED > 60; GLUCOSE 225 MG/DL (70-105); POTASSIUM 3.1 MMOL/L (3.6-5.0); SODIUM 132 MMOL/L (135-145)
[2019-03-20] MEDS: CEFEPIME 2,000 MG/SWFI 20 ML IV PUSH IV SCH ×4 (07:59→20:30)
[2019-03-20] MEDS: ONDANSETRON 4 MG/2 ML (SDV) Z0FRAN IVP PRN ×2 (07:59→20:30)
[2019-03-20 08:00] VITALS: BP 85/54
[2019-03-20] MEDS: MAGNESIUM OXIDE (MAG-OX)400 MG TAB PO SCH (08:00)
[2019-03-20] MEDS: fluCOnazole (DIFLUCAN) 100 MG TAB PO SCH (08:01)
[2019-03-20] MEDS: FAMOTIDINE 20 MG (PEPCID) TABLET PO SCH ×2 (08:01→20:30)
[2019-03-20] MEDS: LACTOBACILLUS ACIDOPHILUS (PROBIOTIC) CAPSULE PO SCH (08:01)
[2019-03-20] MEDS: ASPIRIN E.C. 81 MG (ECOTRIN) TAB PO SCH (08:01)
[2019-03-20] MEDS: NS IV 1000 ML 1,000 ML IV SCH ×2 (08:03→18:37)
[2019-03-20] MEDS ORDERED: NON-FORMULARY MEDICATION 1 EA EA (Lactobacillus Combo No.10 (Probiotic) 1 CAP) PO SCH (09:00)
[2019-03-20] MEDS ORDERED: ASPIRIN 81 MG PO SCH (09:00)
[2019-03-20] MEDS ORDERED: NON-FORMULARY MEDICATION 1 EA EA (Magnesium Oxide (Magnesium) 400 MG) PO SCH (09:00)
[2019-03-20] MEDS: POTASSIUM CL 10MEQ/50ML IVPB 50 ML IV SCH ×4 (09:39→12:58)
--- NOTE | 2019-03-20 10:30 | Physical Therapy Progress Note ---
Therapy Progress Note Patient refused x2. He states that he is having low blood pressure issues (nurse confirms) and doesn't want to participate in PT at this time. Will try back tomorrow. WILLAM LOMBARDO PT Mar 20, 2019 10:30
--- NOTE | 2019-03-20 14:58 | Physical Therapy Daily Note ---
PT Daily Note-Current Subjective Pt laying Supine in bed upon arrival. Pt agrees to walk with PT. Mental Status Patient Orientation: Person, Place, Time, Situation Attachments: IV Transfers Therapy Code Descriptions/Definitions Functional [place] Measure: 0=Not Assessed/NA 4=Minimal Assistance 1=Total Assistance 5=Supervision or Setup 2=Maximal Assistance 6=Modified [place] 3=Moderate Assistance 7=Complete [place] Therapy Quality Codes: 6 Independent with activity with or without an assistive device 5 Patient requires set up or clean up by helper. Patient completes activity by themselves 4 Supervision or touching assist (CGA). [place] provide cues , steadying assist 3 The helper provides less than half the effort to complete the activity 2 The helper provides more than half the effort to complete the activity 1 Dependent. The helper does all the effort to complete an activity 7 Patient refused to complete or attempt activity 9 The patient did not perform the activity before the current illness or i njury 88 Not attempted due to Medical conditions or safety concerns Scootin Rollin Supine to/from Sit: 5 Sit to/from Stand: 5 Weight Bearing Right Lower Extremity: Right Weight Bearing/Tolerated Left Lower Extremity: Left Weight Bearing/Tolerated Gait Training Gait (FIM): 5 Distance (FIM): 3=150 ft Distance: 400' Gait Level of Assist: 5 Gait Persons Needed: 1 Pt feels strong enough to walk w/o AD. Pt uses IV pole during ambulation. Treatments Pt transfers from bed to standing at close SBA due to episodes of low BP earlier today. Pt ambulates in hallway using IV pole to guide. Pt returns to room at end of tx to rest. Pt has all needs met, call light next to pt. Assessment Current Status: Good Progress Pt tolerated tx well with not dizziness reported. PT Short Term Goals Short Term Goals Time Frame: Mar 23, 2019 Transfers (B,C,W/C) (FIM): 7 Gait (FIM): 7 Distance (FIM): 3=150 ft Gait Level of Assist: 7 Gait Assistive Device: None PT Plan Problem List Problem List: Activity Tolerance Treatment/Plan Treatment Plan: Continue Plan of Care Treatment Plan: Education, Functional Activity Basilio, Functional Strength, Gait, Safety, Therapeutic Exercise, Transfers Treatment Duration: Mar 23, 2019 Frequency: 6 times per week Estimated Hrs Per Day: .25 hour per day Patient and/or Family Agrees t: Yes Safety Risks/Education Patient Education: Gait Training, Transfer Techniques, Correct Positioning, Safety Issues Teaching Recipient: Patient Teaching Methods: Discussion Response to Teaching: Verbalize Understanding Time/GCodes Time In: 1355 Time Out: 1410 Total Billed Treatment Time: 15 Total Billed Treatment 1, GT (15m) JERMAN GARCIA PTA Mar 20, 2019 14:58
[2019-03-20 16:00] VITALS: BP 113/68
--- NOTE | 2019-03-20 17:31 | Progress Note ---
Standard Progress Note Progress Notes/Assess & Plan Date Seen by a Provider: Mar 20, 2019 Time Seen by a Provider: 17:26 Progress/Assessment & Plan Mr. Jose is a 68 yo male with stage III colon adenocarcinoma currently on adjuvant chemotherapy. He was admitted on 03/17/19 with fever and hypotension, the latter of which has been an intermittent issue since he started chemotherapy. Since starting chemotherapy, patient also has had bouts of nausea, vomiting and diarrhea. Cycle 4 was just started on 03/06/19. During this admission stool studies have show many yeast but no C diff or other organisms. The significance of yeast in stools is unclear but he has been started empirically on fluconazole. This morning, patient had several episodes of watery diarrhea followed by vomiting. He has had orthostasis and dizziness and could not work with physical therapy very well. Blood pressure was 85/54 at 0800. A rapid cosyntropin stimulation test was borderline consistent with secondary adrenal insufficiency, so he was started on replacement therapy with hydrocortisone 20mg qAM and 10mg qPM. Since late morning, his blood pressure has improved, his nausea and diarrhea have resolved, and he has been able to walk around the halls of the hospital without orthostatic symptoms. He has been afebrile since 0400 yesterday morning. No obvious source of febrile illness has been found so far. Should continue antibiotics and plan to narrow spectrum for discharge. Continue fluconazole. Monitor blood pressure; if it continues to be stable without orthostatic symptoms, plan to discharge with hydrocortisone replacement on the assumption of adrenal insufficiency. Although patient's level of cytopenias is more severe than with prior cycles of chemotherapy, exacerbation could be explained by acute infectious illness. Would expect this to recover while we continue to hold chemotherapy. Will continue to follow. NAHOMY ORDOÑEZ MD Mar 20, 2019 17:31
--- NOTE | 2019-03-20 20:01 | Progress Note ---
Subjective Subjective/Events-last exam Pt seen at 1005. Reports he had a bad night, had stomach pain and vomited this morning and had low BP, actually feeling better after that. Objective Exam Last Set of Vital Signs Vital Signs Date Time Temp Pulse Resp B/P (MAP) Pulse Ox O2 Delivery O2 Flow Rate FiO2 03/20/19 16:00 97.9 77 18 113/68 (83) 100 Room Air Capillary Refill : Less Than 3 Seconds I&O Intake and Output 03/20/19 00:00 Intake Total 3710 ml Balance 3710 ml Intake Oral 1710 ml IV Total 2000 ml # Voids 9 # Bowel Movements 8 General: Alert, No Acute Distress Lungs: Clear to Auscultation, Normal Air Movement Heart: Regular Rate, No Murmurs Abdomen: Normal Bowel Sounds, Soft, No Tenderness Extremities: No Edema Neuro: Normal Speech Psych/Mental Status: Mood NL Results/Procedures Lab Laboratory Tests 03/20/19 06:00: White Blood Count 3.0L, Red Blood Count 2.59L, Hemoglobin 8.1L, Hematocrit 24L, Mean Corpuscular Volume 93, Mean Corpuscular Hemoglobin 31, Mean Corpuscular Hem oglobin Concent 34, Red Cell Distribution Width 17.5H, Platelet Count 67L, Mean Platelet Volume 10.3, Neutrophils (%) (Auto) 38L, Lymphocytes (%) (Auto) 43, Monocytes (%) (Auto) 18H, Eosinophils (%) (Auto) 1, Basophils (%) (Auto) 0, Neutrophils # (Auto) 1.1L, Lymphocytes # (Auto) 1.3, Monocytes # (Auto) 0.5, Eosinophils # (Auto) 0.0, Basophils # (Auto) 0.0, Sodium Level 132L, Potassium Level 3.1L, Chloride Level 107, Carbon Dioxide Level 17L, Anion Gap 8, Blood Urea Nitrogen 9, Creatinine 0.88, Estimat Glomerular Filtration Rate > 60, BUN/Creatinine Ratio 10, Glucose Level 225H, Calcium Level 7.3L 03/20/19 07:47: Glucometer 242H Microbiology 03/16/19 Blood Culture - Preliminary, Resulted No growth 03/17/19 C. difficile GDH Antigen & Toxins - Final, Complete 03/17/19 Stool Culture - Final, Complete See Comments 03/16/19 Influenza Types A,B Antigen (MONALISA) - Final, Complete No growth 03/16/19 Urine Culture - Final, Complete NO GROWTH Assessment/Plan Assessment/Plan (1) Orthostatic hypotension Status: Acute Assessment & Plan: Recurrent problem for him, has been being worked up outpatient for adrenal insufficiency. Minimal improvement with IVF, appreciate Onc recommendations and follow up on outpatient work-up. 03/20 started on hydrocortisone for adrenal insufficiency, still having lows, but has not received many doses yet, monitor. (2) Fever Status: Acute Assessment & Plan: Suspect related to salivary gland infection that had been treated outpatient unsuccessfully. CXR okay, UA okay. On cefepime. Qualifiers: Qualified Codes: R50.9 - Fever, unspecified (3) Salivary gland infection Status: Acute Assessment & Plan: See above. (4) Pancytopenia Status: Acute Assessment & Plan: History of iron deficiency anemia, but currently has low WBC and platelets as well. Followed by Heme/Onc for colon ca, appreciate recommendations. (5) Hyponatremia Status: Acute Assessment & Plan: IV rehydration. (6) Colon cancer Status: Chronic Assessment & Plan: Holding chemotherapy currently, appreciate Oncology recommendations. Qualifiers: Qualified Codes: C18.9 - Malignant neoplasm of colon, unspecified (7) Iron deficiency anemia due to chronic blood loss Status: Chronic Assessment & Plan: Monitor, continue home iron and B12, transfuse if needed. (8) Non-insulin dependent type 2 diabetes mellitus Status: Chronic Assessment & Plan: Hold home meds due to acute illness, sliding scale insulin as needed, diabetic diet. (9) History of DVT of lower extremity Status: Chronic Assessment & Plan: Previously on anticoagulation, on hold due to chronic blood loss. (10) DVT prophylaxis Status: Acute Assessment & Plan: No pharmacologic due to history of GI bleeding/anemia. Clinical Quality Measures DVT/VTE Risk/Contraindication: Risk Factor Score Per Nursin RFS Level Per Nursing on Admit: 4+=Very High ANTOINE JEAN MD Mar 20, 2019 20:00
[2019-03-20] MEDS: ATORVASTATIN 40 MG (LIPITOR) TABLET PO SCH (20:29)
[2019-03-20] MEDS: PANTOPRAZOLE 40 MG (PROTONIX) TAB PO SCH (20:29)
[2019-03-20] MEDS: CLOPIDOGREL 75 MG (PLAVIX) TABLET PO SCH (20:30)
[2019-03-20] MEDS: CYANOCOBALAMIN 1,000 MCG (VITAMIN B-12) TABLET PO SCH (20:30)
[2019-03-21 00:58] VITALS: BP 107/58
[2019-03-21] MEDS: NS IV 1000 ML 1,000 ML IV SCH ×2 (04:47→14:58)
[2019-03-21] MEDS: LEVOTHYROXINE 112 MCG (LEVOTHROID) TAB PO SCH (05:47)
[2019-03-21] MEDS: FERROUS SULF 325 MG (IRON) TAB PO SCH ×3 (05:47→16:16)
[2019-03-21] MEDS: HYDROCORTISONE 20 MG (CORTEF) TAB PO SCH ×2 (05:47→16:16)
[2019-03-21 06:13] LABS: BASOPHILS % (AUTO) 0 % (0-10); EOSINOPHILS % (AUTO) 1 % (0-10); HEMATOCRIT 25 % (40-54); HEMOGLOBIN 8.7 G/DL (13.3-17.7); LYMPHOCYTES # (AUTO) 1.7 X 10^3 (1.0-4.0); LYMPHOCYTES % (AUTO) 50 % (12-44); MEAN CORPUSCULAR HEMOGLOBIN 32 PG (25-34); MEAN CORPUSCULAR HGB CONC 35 G/DL (32-36); MEAN CORPUSCULAR VOLUME 92 FL (80-99); MEAN PLATELET VOLUME 10.2 FL (7.4-10.4); MONOCYTES # (AUTO) 0.3 X 10^3 (0.0-1.0); MONOCYTES % (AUTO) 10 % (0-12); NEUTROPHILS # (AUTO) 1.3 X 10^3 (1.8-7.8); NEUTROPHILS % (AUTO) 39 % (42-75); PLATELET COUNT 74 10^3/uL (130-400); RED CELL DISTRIBUTION WIDTH 17.4 % (10.0-14.5); WHITE BLOOD COUNT 3.3 10^3/uL (4.3-11.0)
[2019-03-21 06:37] LABS: BUN/CREATININE RATIO 8; CALCIUM 7.6 MG/DL (8.5-10.1); CARBON DIOXIDE 15 MMOL/L (21-32); CHLORIDE 110 MMOL/L (98-107); CREATININE SERUM 0.83 MG/DL (0.60-1.30); GFR ESTIMATED > 60; GLUCOSE 197 MG/DL (70-105); MAGNESIUM 1.6 MG/DL (1.6-2.4); POTASSIUM 3.1 MMOL/L (3.6-5.0); SODIUM 134 MMOL/L (135-145)
[2019-03-21 07:36] VITALS: BP 122/72
[2019-03-21] MEDS: MAGNESIUM OXIDE (MAG-OX)400 MG TAB PO SCH (08:25)
[2019-03-21] MEDS: CEFEPIME 2,000 MG/SWFI 20 ML IV PUSH IV SCH ×4 (08:25→22:14)
[2019-03-21] MEDS: FAMOTIDINE 20 MG (PEPCID) TABLET PO SCH ×2 (08:25→22:14)
[2019-03-21] MEDS: fluCOnazole (DIFLUCAN) 100 MG TAB PO SCH (08:25)
[2019-03-21] MEDS: LACTOBACILLUS ACIDOPHILUS (PROBIOTIC) CAPSULE PO SCH ×3 (08:25→22:14)
[2019-03-21] MEDS: ASPIRIN E.C. 81 MG (ECOTRIN) TAB PO SCH (08:25)
[2019-03-21] MEDS: ONDANSETRON 4 MG/2 ML (SDV) Z0FRAN IVP PRN ×2 (08:30→17:23)
--- NOTE | 2019-03-21 09:53 | Progress Note ---
Subjective Subjective/Events-last exam Afebrile, continues to have abdominal pain. Objective Exam Last Set of Vital Signs Vital Signs Date Time Temp Pulse Resp B/P (MAP) Pulse Ox O2 Delivery O2 Flow Rate FiO2 03/21/19 08:00 Room Air 03/21/19 07:36 98.4 74 18 122/72 (89) 100 Capillary Refill : Less Than 3 Seconds I&O Intake and Output 03/21/19 00:00 Intake Total 4585 ml Balance 4585 ml Intake Oral 2365 ml IV Total 2220 ml # Voids 7 # Bowel Movements 5 General: Alert, No Acute Distress Lungs: Clear to Auscultation, Normal Air Movement Heart: Regular Rate, No Murmurs Neuro: Normal Speech Psych/Mental Status: Other (affect flat) Results/Procedures Lab Laboratory Tests 03/21/19 06:05: White Blood Count 3.3L, Red Blood Count 2.72L, Hemoglobin 8.7L, Hematocrit 25L, Mean Corpuscular Volume 92, Mean Corpuscular Hemoglobin 32, Mean Corpuscular Hemoglobin Concent 35, Red Cell Distribution Width 17.4H, Platelet Count 74L, Mean Platelet Volume 10.2, Neutrophils (%) (Auto) 39L, Lymphocytes (%) (Auto) 50H, Monocytes (%) (Auto) 10, Eosinophils (%) (Auto) 1, Basophils (%) (Auto) 0, Neutrophils # (Auto) 1.3L, Lymphocytes # (Auto) 1.7, Monocytes # (Auto) 0.3, Eosinophils # (Auto) 0.0, Basophils # (Auto) 0.0, Sodium Level 134L, Potassium Level 3.1L, Chloride Level 110H, Carbon Dioxide Level 15L, Anion Gap 9, Blood Urea Nitrogen 7, Creatinine 0.83, Estimat Glomerular Filtration Rate > 60, BUN/Creatinine Ratio 8, Glucose Level 197H, Calcium Level 7.6L, Magnesium Level 1.6 Microbiology 03/16/19 Blood Culture - Preliminary, Resulted No growth 03/17/19 C. difficile GDH Antigen & Toxins - Final, Complete 03/17/19 Stool Culture - Final, Complete See Comments 03/16/19 Influenza Types A,B Antigen (MONALISA) - Final, Complete No growth 03/16/19 Urine Culture - Final, Complete NO GROWTH Assessment/Plan Assessment/Plan (1) Orthostatic hypotension Status: Acute Assessment & Plan: Recurrent problem for him, has been being worked up outpatient for adrenal insufficiency. Minimal improvement with IVF, appreciate Onc recommendations and follow up on outpatient work-up. 03/20 started on hydrocortisone for adrenal insufficiency, still having lows, but has not received many doses yet, monitor. 03/21 improved, continue hydrocortisone (2) Fever Status: Acute Assessment & Plan: Suspect related to salivary gland infection that had been treated outpatient unsuccessfully. CXR okay, UA okay. On cefepime. 03/21 afebrile, will receive last dose of cefepime (5 days) tonight, anticipate d/c tomorrow am. Qualifiers: Qualified Codes: R50.9 - Fever, unspecified (3) Salivary gland infection Status: Acute Assessment & Plan: See above. (4) Pancytopenia Status: Acute Assessment & Plan: History of iron deficiency anemia, but currently has low WBC and platelets as well. Followed by Heme/Onc for colon ca, appreciate recommendations. (5) Hyponatremia Status: Acute Assessment & Plan: IV rehydration. Improving (6) Colon cancer Status: Chronic Assessment & Plan: Holding chemotherapy currently, appreciate Oncology recommendations. Qualifiers: Qualified Codes: C18.9 - Malignant neoplasm of colon, unspecified (7) Iron deficiency anemia due to chronic blood loss Status: Chronic Assessment & Plan: Monitor, continue home iron and B12, transfuse if needed. (8) Non-insulin dependent type 2 diabetes mellitus Status: Chronic Assessment & Plan: Hold home meds due to acute illness, sliding scale insulin as needed, diabetic diet. (9) History of DVT of lower extremity Status: Chronic Assessment & Plan: Previously on anticoagulation, on hold due to chronic blood loss. (10) DVT prophylaxis Status: Acute Assessment & Plan: No pharmacologic due to history of GI bleeding/anemia. Clinical Quality Measures DVT/VTE Risk/Contraindication: Risk Factor Score Per Nursin RFS Level Per Nursing on Admit: 4+=Very High ANTOINE JEAN MD Mar 21, 2019 09:53
[2019-03-21] MEDS ORDERED: KCL 20 MEQ TAB (K-DUR) PO NR (10:00)
--- NOTE | 2019-03-21 11:07 | Physical Therapy Progress Note ---
Therapy Progress Note Patient declined PT this a.m. due to nausea. PT will attempt in p.m. 1 ref ([id number]) LEANNE PETERSON PT Mar 21, 2019 11:07
[2019-03-21] MEDS ORDERED: HYOSCYAMINE 0.125 MG (LEVSIN) TAB PO PRN (13:45)
--- NOTE | 2019-03-21 13:57 | Physical Therapy Progress Note ---
Therapy Progress Note Patient declined PT this p.m. with continued c/o nausea. RN is aware. Will attempt in a.m. 1 ref ([id number]) LEANNE PETERSON PT Mar 21, 2019 13:57
[2019-03-21 16:03] VITALS: BP 113/62
[2019-03-21] MEDS: CYANOCOBALAMIN 1,000 MCG (VITAMIN B-12) TABLET PO SCH (22:14)
[2019-03-21] MEDS: CLOPIDOGREL 75 MG (PLAVIX) TABLET PO SCH (22:14)
[2019-03-21] MEDS: PANTOPRAZOLE 40 MG (PROTONIX) TAB PO SCH (22:14)
[2019-03-21] MEDS: ATORVASTATIN 40 MG (LIPITOR) TABLET PO SCH (22:14)
[2019-03-22] VITALS: BP 104/58
[2019-03-22] MEDS: NS IV 1000 ML 1,000 ML IV SCH ×2 (01:14→08:31)
[2019-03-22 04:00] VITALS: BP 110/59
[2019-03-22] MEDS: LEVOTHYROXINE 112 MCG (LEVOTHROID) TAB PO SCH (06:28)
[2019-03-22] MEDS: HYDROCORTISONE 20 MG (CORTEF) TAB PO SCH (06:28)
[2019-03-22] MEDS: FERROUS SULF 325 MG (IRON) TAB PO SCH ×2 (06:29→13:20)
[2019-03-22 06:31] LABS: HEMOGLOBIN 8.4 G/DL (13.3-17.7); MEAN PLATELET VOLUME 9.9 FL (7.4-10.4); RED CELL DISTRIBUTION WIDTH 17.8 % (10.0-14.5); WHITE BLOOD COUNT 3.9 10^3/uL (4.3-11.0)
[2019-03-22 06:39] LABS: BUN/CREATININE RATIO 6; CALCIUM 7.7 MG/DL (8.5-10.1); CARBON DIOXIDE 17 MMOL/L (21-32); CHLORIDE 110 MMOL/L (98-107); CREATININE SERUM 0.77 MG/DL (0.60-1.30); GFR ESTIMATED > 60; GLUCOSE 142 MG/DL (70-105); POTASSIUM 3.1 MMOL/L (3.6-5.0); SODIUM 136 MMOL/L (135-145)
[2019-03-22 07:41] VITALS: BP 119/64
[2019-03-22] MEDS: MAGNESIUM OXIDE (MAG-OX)400 MG TAB PO SCH (08:30)
[2019-03-22] MEDS: FAMOTIDINE 20 MG (PEPCID) TABLET PO SCH (08:30)
[2019-03-22] MEDS: ASPIRIN E.C. 81 MG (ECOTRIN) TAB PO SCH (08:30)
[2019-03-22] MEDS: LACTOBACILLUS ACIDOPHILUS (PROBIOTIC) CAPSULE PO SCH ×2 (08:30→13:20)
[2019-03-22] MEDS: fluCOnazole (DIFLUCAN) 100 MG TAB PO SCH (08:31)
[2019-03-22] MEDS: POTASSIUM CL 10MEQ/50ML IVPB 50 ML IV SCH ×5 (08:58→12:50)
--- NOTE | 2019-03-22 12:04 | Physical Therapy Daily Note ---
PT Daily Note-Current Subjective Patient reports he is feeling much better and will dismiss to home on this date. Mental Status Patient Orientation: Normal For Age Attachments: IV Transfers Therapy Code Descriptions/Definitions Functional [place] Measure: 0=Not Assessed/NA 4=Minimal Assistance 1=Total Assistance 5=Supervision or Setup 2=Maximal Assistance 6=Modified [place] 3=Moderate Assistance 7=Complete [place] Therapy Quality Codes: 6 Independent with activity with or without an assistive device 5 Patient requires set up or clean up by helper. Patient completes activity by themselves 4 Supervision or touching assist (CGA). [place] provide cues , steadying assist 3 The helper provides less than half the effort to complete the activity 2 The helper provides more than half the effort to complete the activity 1 Dependent. The helper does all the effort to complete an activity 7 Patient refused to complete or attempt activity 9 The patient did not perform the activity before the current illness or in jury 88 Not attempted due to Medical conditions or safety concerns Transfers (B, C, W/C) (FIM): 7 Scootin Supine to/from Sit: 7 Sit to/from Stand: 7 Weight Bearing Right Lower Extremity: Right Weight Bearing/Tolerated Left Lower Extremity: Left Weight Bearing/Tolerated Gait Training Gait (FIM): 7 Distance (FIM): 3=150 ft Distance: 225' Gait Level of Assist: 7 Gait Assistive Device: None 1 episode of LOB with self correct Assessment Patient tolerated treatment well and will return to home with spouse on this date. PT Short Term Goals Short Term Goals Time Frame: Mar 23, 2019 Transfers (B,C,W/C) (FIM): 7 Gait (FIM): 7 Distance (FIM): 3=150 ft Gait Level of Assist: 7 Gait Assistive Device: None PT Plan Treatment/Plan Treatment Plan: Discontinue PT, goals met Treatment Plan: Education, Functional Activity Basilio, Functional Strength, Gait, Safety, Therapeutic Exercise, Transfers Treatment Duration: Mar 23, 2019 Frequency: 6 times per week Estimated Hrs Per Day: .25 hour per day Patient and/or Family Agrees t: Yes Time/GCodes Time In: 1150 Time Out: 1158 Total Billed Treatment Time: 8 Total Billed Treatment 1 visit FA 8 min LEANNE PETERSON PT Mar 22, 2019 12:04
[2019-03-22] MEDS ORDERED: HYOS0.1296 PO (14:25)
[2019-03-22] MEDS ORDERED: FLUC100T6 PO (14:25)
[2019-03-22] MEDS ORDERED: HYDR20TA2 PO ×2 (14:25)
--- NOTE | 2019-03-22 14:27 | Discharge Instructions ---
Discharge [facility] Discharge Medications New, Converted or Re-Newed RX: Transmitted to Pharmacy New Medications: Fluconazole (Fluconazole) 100 Mg Tablet 100 MG PO DAILY, #7 TAB 0 Refills Hydrocortisone (Hydrocortisone) 20 Mg Tablet 10 MG PO DAILY@1600, #30 TAB 0 Refills Hydrocortisone (Hydrocortisone) 20 Mg Tablet 20 MG PO DAILY@0700, #30 TAB 0 Refills Hyoscyamine Sulfate (Oscimin) 0.125 Mg Tablet 0.125 MG PO Q4H PRN for SPASMS, #30 TAB 0 Refills Continued Medications: Aspirin (Lo-Dose Aspirin EC) 81 Mg Tablet.dr 81 MG PO DAILY, TAB Atorvastatin Calcium (Atorvastatin Calcium) 40 Mg Tablet 40 MG PO HS, TAB Azelaic Acid (Finacea) 50 Gm Gel..gram. TP DAILY, TUBE Capecitabine (Capecitabine) 500 Mg Tablet PO UD, TAB TAKE 4 TABLETS BY MOUTH EVERY 12 HOURS FOR 14 DAYS THEN OFF FOR 7 DAYS Chlorpheniramine Maleate (Chlorpheniramine Maleate) 4 Mg Tablet 4 MG PO BID PRN for ALLERGIES, TAB Clopidogrel Bisulfate (Plavix) 75 Mg Tablet 75 MG PO HS, TAB Cyanocobalamin (Vitamin B-12) (Vitamin B-12) 1,000 Mcg Tablet 1000 MCG PO HS, TAB Diphenoxylate HCl/Atropine (Lomotil 2.5-0.025 mg Tablet) 1 Each Tablet 1 EACH PO QID PRN for DIARRHEA, TAB Ferrous Sulfate (Iron) 325 Mg Tablet 325 MG PO TID, TAB Fluticasone Propionate (Flonase Allergy Relief) 9.9 Ml [place].susp 2 SPRAY NS DAILY PRN for ALLERGIES, EACH Lactobacillus Combo No.10 (Probiotic) 1 Each Capsule 1 CAP PO DAILY, CAP Levothyroxine Sodium (Levothyroxine Sodium) 112 Mcg Tablet 112 MCG PO DAILY, TAB Magnesium Oxide (Magnesium) 400 Mg Capsule 400 MG PO DAILY, CAP Metformin HCl (Metformin HCl) 1,000 Mg Tablet 1000 MG PO BID, TAB Metronidazole (Metronidazole) 45 Gm Cream..g. TP HS, EA Ondansetron (Ondansetron Odt) 8 Mg Tab.rapdis 8 MG PO Q3H PRN for NAUSEA/VOMITING-1ST LINE, TAB Pantoprazole Sodium (Pantoprazole Sodium) 40 Mg Tablet.dr 40 MG PO HS, TAB Pimecrolimus (Elidel) 30 Gm Cream.gm. TP DAILY PRN for PSORIASIS, EA Sitagliptin Phosphate (Januvia) 100 Mg Tablet 100 MG PO DAILY, TAB Discontinued Medications: Glipizide (Glipizide) 10 Mg Tablet 10 MG PO BID, TAB Pioglitazone HCl (Pioglitazone HCl) 30 Mg Tablet 30 MG PO HS, TAB Patient Instructions Goal/Follow Up Appt: Follow up with Dr. Farmer on 03/27 at 09:45. Patient Instructions: Hold Glipizide and Pioglitazone for now. You have not been eating as well as normal and your blood sugar inpatient has been okay without them. They may need restarted later per Dr. Farmer. Return to [facility] For: Fever, inability to keep medications or liquid down. Activity & Diet Discharge Diet: ADA Diet Activity as Tolerated: Yes Copy Copies To 1: EMIL FARMER MD, BETHANY N MD Mar 22, 2019 14:27
--- NOTE | 2019-03-22 21:13 | Discharge Summary ---
Discharge Summary Hospital Course Problems/Diagnosis: (1) Orthostatic hypotension Assessment & Plan: Recurrent problem for him, has been being worked up outpatient for adrenal insufficiency. Minimal improvement with IVF, appreciate Onc recommendations and follow up on outpatient work-up. 03/20 started on hydrocortisone for adrenal insufficiency, still having lows, but has not received many doses yet, monitor. 03/21 improved, continued hydrocortisone on discharge (2) Fever Assessment & Plan: Suspect related to salivary gland infection that had been treated outpatient unsuccessfully. CXR okay, UA okay. On cefepime. 03/21 afebrile, will receive last dose of cefepime (5 days) tonight, anticipate d/c tomorrow am. Qualifiers: Qualified Codes: R50.9 - Fever, unspecified (3) Salivary gland infection Assessment & Plan: See above. (4) Pancytopenia Assessment & Plan: History of iron deficiency anemia, but currently has low WBC and platelets as well. Followed by Heme/Onc for colon ca, appreciate recommendations. (5) Hyponatremia Assessment & Plan: IV rehydration. Resolved. (6) Colon cancer Assessment & Plan: Holding chemotherapy currently, appreciate Oncology recommendations. Qualifiers: Qualified Codes: C18.9 - Malignant neoplasm of colon, unspecified (7) Iron deficiency anemia due to chronic blood loss Assessment & Plan: Monitor, continue home iron and B12 (8) Non-insulin dependent type 2 diabetes mellitus Assessment & Plan: Hold home meds due to acute illness, sliding scale insulin a s needed, diabetic diet. (9) Diarrhea Assessment & Plan: C diff and culture negative for bacteria, yeast found, started on fluconazole, continued for 7 days on d/c. Continued to have abdominal pain, started hyoscyamine prn and did have improvement next day, continued on d/c. (10) History of DVT of lower extremity Assessment & Plan: Previously on anticoagulation, on hold due to chronic blood loss. Hospital Course Date of Admission: Mar 16, 2019 at 22:10 Admission Diagnosis : Family Physician/Provider: Emil Farmer MD Date of Discharge: 03/22/19 Discharge Diagnosis: see problem list Hospital Course: See problem list Labs and Pending Lab Test: Laboratory Tests 03/22/19 06:10: White Blood Count 3.9L, Red Blood Count 2.67L, Hemoglobin 8.4L, Hematocrit 24L, Mean Corpuscular Volume 91, Mean Corpuscular Hemoglobin 31, Mean Corpuscular Hemoglobin Concent 34, Red Cell Distribution Width 17.8H, Platelet Count 76L, Mean Platelet Volume 9.9, Sodium Level 136, Potassium Level 3.1L, Chloride Level 110H, Carbon Dioxide Level 17L, Anion Gap 9, Blood Urea Nitrogen 5L, Creatinine 0.77, Estimat Glomerular Filtration Rate > 60, BUN/Creatinine Ratio 6, Glucose Level 142H, Calcium Level 7.7L Microbiology 03/16/19 Blood Culture - Final, Complete No growth 03/17/19 C. difficile GDH Antigen & Toxins - Final, Complete 03/17/19 Stool Culture - Final, Complete See Comments 03/16/19 Influenza Types A,B Antigen (MONALISA) - Final, Complete No growth 03/16/19 Urine Culture - Final, Complete NO GROWTH Home Meds Active Oscimin (Hyoscyamine Sulfate) 0.125 Mg Tablet 0.125 Mg PO Q4H PRN Fluconazole 100 Mg Tablet 100 Mg PO DAILY Hydrocortisone 20 Mg Tablet 20 Mg PO DAILY@0700 Hydrocortisone 20 Mg Tablet 10 Mg PO DAILY@1600 Reported Magnesium (Magnesium Oxide) 400 Mg Capsule 400 Mg PO DAILY Lomotil 2.5-0.025 mg Tablet (Diphenoxylate HCl/Atropine) 1 Each Tablet 1 Each PO QID PRN Probiotic (Lactobacillus Combo No.10) 1 Each Capsule 1 Cap PO DAILY Metformin HCl 1,000 Mg Tablet 1,000 Mg PO BID Plavix (Clopidogrel Bisulfate) 75 Mg Tablet 75 Mg PO HS Pantoprazole Sodium 40 Mg Tablet.dr 40 Mg PO HS Chlorpheniramine Maleate 4 Mg Tablet 4 Mg PO BID PRN Ondansetron Odt (Ondansetron) 8 Mg Tab.rapdis 8 Mg PO Q3H PRN Capecitabine 500 Mg Tablet PO UD TAKE 4 TABLETS BY MOUTH EVERY 12 HOURS FOR 14 DAYS THEN OFF FOR 7 DAYS Flonase Allergy Relief (Fluticasone Propionate) 9.9 Ml [place].susp 2 [place] NS DAILY PRN Vitamin B-12 (Cyanocobalamin (Vitamin B-12)) 1,000 Mcg Tablet 1,000 Mcg PO HS Metronidazole 45 Gm Cream..g. TP HS Iron (Ferrous Sulfate) 325 Mg Tablet 325 Mg PO TID Finacea (Azelaic Acid) 50 Gm Gel..gram. TP DAILY Elidel (Pimecrolimus) 30 Gm Cream.gm. TP DAILY PRN Lo-Dose Aspirin EC (Aspirin) 81 Mg Tablet.dr 81 Mg PO DAILY Atorvastatin Calcium 40 Mg Tablet 40 Mg PO HS Januvia (Sitagliptin Phosphate) 100 Mg Tablet 100 Mg PO DAILY Glipizide 10 Mg Tablet 10 Mg PO BID Pioglitazone HCl 30 Mg Tablet 30 Mg PO HS Levothyroxine Sodium 112 Mcg Tablet 112 Mcg PO DAILY Assessment/Pt DC Instructions Follow up with Dr. Farmer on 03/27 at 9:45 am. Discharge Physical Examination Allergies: Coded Allergies: oxaliplatin (Verified Allergy, Intermediate, 03/07/19) General Appearance: No Apparent Distress, WD/WN Respiratory: Lungs Clear, Normal Breath Sounds Cardiovascular: Regular Rate, Rhythm, No Murmur Gastrointestinal: Normal Bowel Sounds, Non Tender, Soft Extremity: No Pedal Edema Skin: Normal Color, Warm/Dry Neurologic/Psychiatric: Alert, Oriented x3 Copy Copies To 1: EMIL FARMER MD Discharge Summary Date of Admission Mar 16, 2019 at 22:10 Date of Discharge Discharge Date: Mar 22, 2019 Admission Diagnosis Assessment: Fever Immunosuppressed Chemotherapy for colon cancer CAD s/p stent Hypothyroidism DM Plan: PPI Home meds once reconciled IV abx Supportive care Discharge Diagnosis (1) Salivary gland infection Status: Acute (2) Fever Status: Acute Qualifiers: Qualified Codes: R50.9 - Fever, unspecified (3) Elevated lactic acid level Status: Acute (4) Colon cancer Status: Chronic Qualifiers: Qualified Codes: C18.9 - Malignant neoplasm of colon, unspecified (5) Iron deficiency anemia due to chronic blood loss Status: Chronic (6) GI bleed Status: Resolved (7) Hx pulmonary embolism Status: Chronic (8) History of DVT of lower extremity Status: Chronic (9) Non-insulin dependent type 2 diabetes mellitus Status: Chronic (10) Bladder cancer Status: Resolved (11) Hypothyroidism Status: Chronic (12) CAD (coronary artery disease) Status: Chronic Clinical Quality Measures DVT/VTE Risk/Contraindication: Risk Factor Score Per Nursin RFS Level Per Nursing on Admit: 4+=Very High ANTOINE JEAN MD Mar 22, 2019 14:27
== END 2019-03-22 15:12 | disposition home or self-care (01) | DRG 155 ==
LOC: EDUNIT# 20:21 → ER FS 20:23 → 4TH 22:10
PROVIDERS: ADMIT Internal Medicine; ATTEND Family Medicine
DX: K11.21 Acute sialoadenitis (principal); E27.40 Unspecified adrenocortical insufficiency; C18.9 Malignant neoplasm of colon, unspecified; D61.818 Other pancytopenia; E87.1 Hypo-osmolality and hyponatremia; I25.10 Atherosclerotic heart disease of native coronary artery without angina pectoris; D50.0 Iron deficiency anemia secondary to blood loss (chronic); I95.1 Orthostatic hypotension; R19.7 Diarrhea, unspecified; I10 Essential (primary) hypertension; E03.9 Hypothyroidism, unspecified; E11.9 Type 2 diabetes mellitus without complications; E78.00 Pure hypercholesterolemia, unspecified; L40.9 Psoriasis, unspecified; R74.0 Nonspecific elevation of levels of transaminase and lactic acid dehydrogenase [LDH]; I25.2 Old myocardial infarction; Z79.899 Other long term (current) drug therapy; Z79.02 Long term (current) use of antithrombotics/antiplatelets; Z85.51 Personal history of malignant neoplasm of bladder; Z87.891 Personal history of nicotine dependence; Z90.49 Acquired absence of other specified parts of digestive tract; Z95.5 Presence of coronary angioplasty implant and graft; Z79.82 Long term (current) use of aspirin; Z86.711 Personal history of pulmonary embolism; Z86.718 Personal history of other venous thrombosis and embolism
CPT/HCPCS: 36415; 71045; 80048; 80053; 81000; 82962; 83605; 83735; 85025; 85027; 85610; 85730; 87015; 87040; 87045; 87046; 87088; 87324; 87449; 87804; 87899; 96361; 96374

== ENCOUNTER 2019-04-24 11:11 | Outpatient (RCR) | payer MEDICARE ==
[2019-04-05 11:01] LABS: BASOPHILS % (AUTO) 1 % (0-10); EOSINOPHILS % (AUTO) 1 % (0-10); HEMATOCRIT 32 % (40-54); HEMOGLOBIN 10.2 G/DL (13.3-17.7); LYMPHOCYTES % (AUTO) 38 % (12-44); MEAN CORPUSCULAR HEMOGLOBIN 33 PG (25-34); MEAN CORPUSCULAR HGB CONC 32 G/DL (32-36); MEAN CORPUSCULAR VOLUME 101 FL (80-99); MEAN PLATELET VOLUME 9.6 FL (7.4-10.4); MONOCYTES % (AUTO) 8 % (0-12); NEUTROPHILS % (AUTO) 52 % (42-75); PLATELET COUNT 126 10^3/uL (130-400); RED CELL DISTRIBUTION WIDTH 20.9 % (10.0-14.5); WHITE BLOOD COUNT 4.8 10^3/uL (4.3-11.0)
[2019-04-05 11:02] LABS: EOSINOPHILS # (AUTO) 0.1 10^3/uL (0.0-0.3); LYMPHOCYTES # (AUTO) 1.8 X 10^3 (1.0-4.0); MONOCYTES # (AUTO) 0.4 X 10^3 (0.0-1.0); NEUTROPHILS # (AUTO) 2.5 X 10^3 (1.8-7.8)
[2019-04-05 11:08] LABS: BUN/CREATININE RATIO 16; CALCIUM 9.3 MG/DL (8.5-10.1); CARBON DIOXIDE 21 MMOL/L (21-32); CHLORIDE 97 MMOL/L (98-107); CREATININE SERUM 1.16 MG/DL (0.60-1.30); GFR ESTIMATED > 60; GLUCOSE 380 MG/DL (70-105); POTASSIUM 4.8 MMOL/L (3.6-5.0); SODIUM 131 MMOL/L (135-145)
[2019-04-12 14:27] LABS: HEMATOCRIT 32 % (40-54); HEMOGLOBIN 10.7 G/DL (13.3-17.7); MEAN CORPUSCULAR HEMOGLOBIN 34 PG (25-34); MEAN CORPUSCULAR HGB CONC 34 G/DL (32-36); MEAN CORPUSCULAR VOLUME 101 FL (80-99); WHITE BLOOD COUNT 5.2 10^3/uL (4.3-11.0)
[2019-04-12 14:28] LABS: BASOPHILS % (AUTO) 1 % (0-10); EOSINOPHILS # (AUTO) 0.1 10^3/uL (0.0-0.3); EOSINOPHILS % (AUTO) 2 % (0-10); LYMPHOCYTES # (AUTO) 1.7 X 10^3 (1.0-4.0); LYMPHOCYTES % (AUTO) 33 % (12-44); MEAN PLATELET VOLUME 9.8 FL (7.4-10.4); MONOCYTES # (AUTO) 0.3 X 10^3 (0.0-1.0); MONOCYTES % (AUTO) 5 % (0-12); NEUTROPHILS # (AUTO) 3.1 X 10^3 (1.8-7.8); NEUTROPHILS % (AUTO) 59 % (42-75); PLATELET COUNT 167 10^3/uL (130-400); RED CELL DISTRIBUTION WIDTH 20.3 % (10.0-14.5)
[2019-04-12 14:44] LABS: BUN/CREATININE RATIO 15; CALCIUM 9.3 MG/DL (8.5-10.1); CARBON DIOXIDE 21 MMOL/L (21-32); CHLORIDE 96 MMOL/L (98-107); CREATININE SERUM 1.07 MG/DL (0.60-1.30); GFR ESTIMATED > 60; GLUCOSE 346 MG/DL (70-105); POTASSIUM 4.6 MMOL/L (3.6-5.0); SODIUM 131 MMOL/L (135-145)
[~2019-04-24 11:11] MED LIST changes: +DIPH1TAB PO; +FLUC100T6 PO; +HYDR20TA2 PO; +HYOS0.1296 PO; +MAGN400C PO
[2019-04-24 12:34] LABS: BASOPHILS % (AUTO) 1 % (0-10); EOSINOPHILS % (AUTO) 2 % (0-10); HEMATOCRIT 35 % (40-54); HEMOGLOBIN 11.3 G/DL (13.3-17.7); LYMPHOCYTES % (AUTO) 23 % (12-44); MEAN CORPUSCULAR HEMOGLOBIN 34 PG (25-34); MEAN CORPUSCULAR HGB CONC 33 G/DL (32-36); MEAN CORPUSCULAR VOLUME 104 FL (80-99); MEAN PLATELET VOLUME 9.8 FL (7.4-10.4); MONOCYTES % (AUTO) 6 % (0-12); NEUTROPHILS % (AUTO) 68 % (42-75); PLATELET COUNT 171 10^3/uL (130-400); RED CELL DISTRIBUTION WIDTH 19.9 % (10.0-14.5); WHITE BLOOD COUNT 7.8 10^3/uL (4.3-11.0)
[2019-04-24 12:35] LABS: BASOPHILS # (AUTO) 0.1 10^3/uL (0.0-0.1); EOSINOPHILS # (AUTO) 0.2 10^3/uL (0.0-0.3); LYMPHOCYTES # (AUTO) 1.8 X 10^3 (1.0-4.0); MONOCYTES # (AUTO) 0.5 X 10^3 (0.0-1.0); NEUTROPHILS # (AUTO) 5.3 X 10^3 (1.8-7.8)
[2019-04-24 12:59] LABS: CARBON DIOXIDE 21 MMOL/L (21-32); CHLORIDE 96 MMOL/L (98-107); POTASSIUM 4.3 MMOL/L (3.6-5.0); SODIUM 132 MMOL/L (135-145)
[2019-04-24 13:00] LABS: BUN/CREATININE RATIO 18; CALCIUM 9.5 MG/DL (8.5-10.1); CREATININE SERUM 0.99 MG/DL (0.60-1.30); GFR ESTIMATED > 60; GLUCOSE 268 MG/DL (70-105)
[2019-05-09] MEDS ORDERED: POLY17PO6 PO (12:28)
[2019-05-09] MEDS ORDERED: SULF1TAB35 PO (13:31)
[2019-05-09] MEDS ORDERED: GLIP5TAB13 PO (16:19)
[2019-05-09] MEDS ORDERED: MIDO2.5T PO (16:19)
[2019-05-09] MEDS ORDERED: PIOG30TA38 PO (16:19)
[2019-05-09] MEDS ORDERED: OZEMPIC (16:19)
== END 2019-07-04 | disposition home or self-care (01) ==
LOC: LAB FS 11:11
PROVIDERS: ATTEND Internal Medicine Hematology & Oncology
DX: C18.2 Malignant neoplasm of ascending colon (principal); C77.2 Secondary and unspecified malignant neoplasm of intra-abdominal lymph nodes; D64.9 Anemia, unspecified; I25.10 Atherosclerotic heart disease of native coronary artery without angina pectoris; E11.9 Type 2 diabetes mellitus without complications; I10 Essential (primary) hypertension; Z85.51 Personal history of malignant neoplasm of bladder; Z79.84 Long term (current) use of oral hypoglycemic drugs; Z79.82 Long term (current) use of aspirin; Z79.899 Other long term (current) drug therapy
CPT/HCPCS: 36415; 80048; 85025

== ENCOUNTER → 2019-05-02 | Outpatient (CLI) | payer MEDICARE | LOC: LAB 14:46 | PROVIDERS: ATTEND Internal Medicine Gastroenterology | DX: D64.9 Anemia, unspecified (principal); R19.5 Other fecal abnormalities | CPT/HCPCS: 36415; 86021; 86671 ==

== ENCOUNTER 2019-05-09 10:48 | Emergency (ER) | payer MEDICARE ==
[~2019-05-09] VITALS: Ht 190 cm; Wt 80.9 kg
--- NOTE | 2019-05-09 11:08 | ED General ---
General Stated Complaint: CONSTIPATION Source of Information: Patient History of Present Illness Date Seen by Provider: May 09, 2019 Time Seen by Provider: 11:03 Initial Comments 69-year-old male brought to the ER by ambulance, complaining of constipation Last bowel movement was 4 days ago but he has been battling this for weeks apparently, took stool softener and Dulcolax recently Denies abdominal pain bloating or vomiting Is status post partial colon resection for colon cancer, in fact is receiving c hemotherapy for that, has 2 more rounds to go remote hx of bladder ca history of coronary artery disease with stents 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 he's had some pancytopenia and hyponatremia Allergies and Home Medications Allergies Coded Allergies: oxaliplatin (Verified Allergy, Intermediate, 03/07/19) Home Medications Aspirin 81 Mg Tablet.dr, 81 MG PO DAILY, (Reported) Atorvastatin Calcium 40 Mg Tablet, 40 MG PO HS, (Reported) Azelaic Acid 50 Gm Gel..gram., TP DAILY, (Reported) Capecitabine 500 Mg Tablet, PO UD, (Reported) TAKE 4 TABLETS BY MOUTH EVERY 12 HOURS FOR 14 DAYS THEN OFF FOR 7 DAYS Chlorpheniramine Maleate 4 Mg Tablet, 4 MG PO BID PRN for ALLERGIES, (Reported) Clopidogrel Bisulfate 75 Mg Tablet, 75 MG PO HS, (Reported) Cyanocobalamin (Vitamin B-12) 1,000 Mcg Tablet, 1,000 MCG PO HS, (Reported) Diphenoxylate HCl/Atropine 1 Each Tablet, 1 EACH PO QID PRN for DIARRHEA, (Reported) Ferrous Sulfate 325 Mg Tablet, 325 MG PO TID, (Reported) Fluconazole 100 Mg Tablet, 100 MG PO DAILY Prescribed by: ANTOINE JEAN on 03/22/19 142 Fluticasone Propionate 9.9 Ml [place].susp, 2 SPRAY NS DAILY PRN for ALLERGIES, (Reported) Hydrocortisone 20 Mg Tablet, 10 MG PO DAILY@1600 Prescribed by: ANTOINE JEAN on 03/22/19 142 Hydrocortisone 20 Mg Tablet, 20 MG PO DAILY@0700 Prescribed by: ANTOINE JEAN on 03/22/19 142 Hyoscyamine Sulfate 0.125 Mg Tablet, 0.125 MG PO Q4H PRN for SPASMS Prescribed by: ANTOINE JEAN on 03/22/19 142 Lactobacillus Combo No.10 1 Each Capsule, 1 CAP PO DAILY, (Reported) Levothyroxine Sodium 112 Mcg Tablet, 112 MCG PO DAILY, (Reported) Magnesium Oxide 400 Mg Capsule, 400 MG PO DAILY, (Reported) Metformin HCl 1,000 Mg Tablet, 1,000 MG PO BID, (Reported) Metronidazole 45 Gm Cream..g., TP HS, (Reported) Ondansetron 8 Mg Tab.rapdis, 8 MG PO Q3H PRN for NAUSEA/VOMITING-1ST LINE, (Reported) Pantoprazole Sodium 40 Mg Tablet.dr, 40 MG PO HS, (Reported) Pimecrolimus 30 Gm Cream.gm., TP DAILY PRN for PSORIASIS, (Reported) Sitagliptin Phosphate 100 Mg Tablet, 100 MG PO DAILY, (Reported) Patient Home Medication List Home Medication List Reviewed: Yes Review of Systems Review of Systems Constitutional: No chills, No fever EENTM: no symptoms reported Respiratory: no symptoms reported Cardiovascular: no symptoms reported Gastrointestinal: no symptoms reported; No abdominal pain; constipation; No n ausea, No vomiting Genitourinary: no symptoms reported Musculoskeletal: no symptoms reported Skin: no symptoms reported Past Tettjow-Wssyuy-Gfzamx Hx Patient Social History Alcohol Beverage of Choice: [place] Type Used: Cigarettes Former Smoker, Quit: Jul 04, 1980 2nd Hand Smoke Exposure: No Recent Foreign Travel: Yes Recent Hopitalizations: Yes (SEP 2018-[place] COLON/SURGERY) Immunizations Up To Date Tetanus Booster (TDap): Unknown Date of Pneumonia Vaccine: Jul 26, 2016 Date of Influenza Vaccine: May 04, 2018 Seasonal Allergies Seasonal Allergies: No Past Medical History Surgeries: Yes (BLADDER SURGERY-CANCER, COLON RESECTION ) Abdominal, Bowel Surgery, Cardiac, Coronary Stent Respiratory: Yes Pulmonary Embolism Currently Using CPAP: No Currently Using BIPAP: No Cardiac: Yes (stents in 1996, ANGIOPLASTY 06/2018) Coronary Artery Disease, High Cholesterol, Hypertension Neurological: No Sexually Transmitted Disease: No HIV/AIDS: No Genitourinary: Yes (bladder cancer in past) Bladder Infection Gastrointestinal: Yes (COLON CA) Gastrointestinal Bleed Musculoskeletal: No Endocrine: Yes Diabetes, Non-Insulin dep HEENT: Yes (GLASSES) Cataract Loss of Vision: Bilateral Hearing Impairment: Denies Cancer: Yes Bladder, Colon Did You Recieve Any Treatments: Yes What Type of Treatment Did You: Chemotherapy, Surgical Intervention Psychosocial: No Integumentary: Yes Psoriasis Blood Disorders: No (ANEMIA) Adverse Reaction/Blood Tranf: No (HAS HAD BLOOD WITH NO REACTION) Family Medical History Abdominal aortic aneurysm Cardiovascular disease Cataracts Colon cancer Diabetes mellitus Glaucoma Hypertension Myocardial infarction Respiratory disorder Thyroid disease Visual disorder CAD Over 55 Years Old Physical Exam Vital Signs Vital Signs - First Documented 05/09/19 10:50 Temp 36.4 Pulse 84 Resp 16 B/P (MAP) 128/74 (92) Pulse Ox 100 O2 Delivery Room Air Capillary Refill : Height, Weight, BMI Height: 6'3.00" Weight: 188lbs. 1.6oz. 85.311764la; 23.5 BMI Method:Estimated General Appearance: No Apparent Distress Eyes: Bilateral Eye PERRL, Bilateral Eye EOMI HEENT: TMs Normal, Pharynx Normal Neck: Full Range of Motion, Supple Respiratory: Lungs Clear, Normal Breath Sounds Cardiovascular: Regular Rate, Rhythm Gastrointestinal: Normal Bowel Sounds, Non Tender, Soft Extremity: Normal Inspection Skin: Warm/Dry; No Rash Procedures/Interventions Progress Fecal disimpaction Rectal exam revealed a significant fecal impaction This was digitally removed with lots of lubrication and double gloves No further stool could be reached per rectum patient tolerated this pretty well Progress/Results/Core Measures Suspected Sepsis SIRS Temperature: Pulse: Respiratory Rate: Laboratory Tests 05/09/19 11:09: White Blood Count 7.5 Blood Pressure / Mean: Laboratory Tests 05/09/19 11:09: Creatinine 0.83, INR Comment 1.0, Platelet Count 157 Results/Orders Lab Results Laboratory Tests Test 05/09/19 11:09 05/09/19 13:00 Range/Units White Blood Count 7.5 4.3-11.0 10^3/uL Red Blood Count 3.07 L 4.35-5.85 10^6/uL Hemoglobin 10.9 L 13.3-17.7 G/DL Hematocrit 32 L 40-54 % Mean Corpuscular Volume 105 H 80-99 FL Mean Corpuscular Hemoglobin 36 H 25-34 PG Mean Corpuscular Hemoglobin Concent 34 32-36 G/DL Red Cell Distribution Width 19.9 H 10.0-14.5 % Platelet Count 157 130-400 10^3/uL Mean Platelet Volume 9.5 7.4-10.4 FL Neutrophils (%) (Auto) 74 42-75 % Lymphocytes (%) (Auto) 19 12-44 % Monocytes (%) (Auto) 6 0-12 % Eosinophils (%) (Auto) 1 0-10 % Basophils (%) (Auto) 0 0-10 % Neutrophils # (Auto) 5.6 1.8-7.8 X 10^3 Lymphocytes # (Auto) 1.4 1.0-4.0 X 10^3 Monocytes # (Auto) 0.4 0.0-1.0 X 10^3 Eosinophils # (Auto) 0.1 0.0-0.3 10^3/uL Basophils # (Auto) 0.0 0.0-0.1 10^3/uL Prothrombin Time 13.8 12.2-14.7 SEC INR Comment 1.0 0.8-1.4 Sodium Level 135 135-145 MMOL/L Potassium Level 3.8 3.6-5.0 MMOL/L Chloride Level 97 L 98-107 MMOL/L Carbon Dioxide Level 20 L 21-32 MMOL/L Anion Gap 18 H 5-14 MMOL/L Blood Urea Nitrogen 10 7-18 MG/DL Creatinine 0.83 0.60-1.30 MG/DL Estimat Glomerular Filtration Rate > 60 BUN/Creatinine Ratio 12 Glucose Level 208 H 70-105 MG/DL Calcium Level 9.2 8.5-10.1 MG/DL Urine Color YELLOW Urine Clarity CLEAR Urine pH 6.0 5-9 Urine Specific [place] 1.010 L 1.016-1.022 Urine Protein NEGATIVE NEGATIVE Urine Glucose (UA) 3+ H NEGATIVE Urine Ketones TRACE H NEGATIVE Urine Nitrite NEGATIVE NEGATIVE Urine Bilirubin NEGATIVE NEGATIVE Urine Urobilinogen 0.2 NORMAL MG/DL Urine Leukocyte Esterase NEGATIVE NEGATIVE Urine RBC (Auto) NEGATIVE NEGATIVE Urine RBC RARE /HPF Urine WBC NONE /HPF Urine Squamous Epithelial Cells NONE /HPF Urine Crystals NONE /LPF Urine Bacteria NEGATIVE /HPF Urine Casts NONE /LPF Urine Mucus NONE /LPF Urine Culture Indicated NO My Orders Orders - BJORN VALENZUELA MD Cbc With Automated Diff (05/09/19 11:08) Basic Metabolic Panel (05/09/19 11:08) Protime With Inr (05/09/19 11:08) Urinalysis (05/09/19 11:08) Abdomen Flat & Upright/Decub (05/09/19 11:29) Bladder Scan (05/09/19 12:40) Lidocaine 2% (Urojet) (Xylocaine Urojet) (05/09/19 12:53) Lidocaine 2% (Urojet) (Xylocaine Urojet) (05/09/19 13:15) Sulfamethoxazole/Trimet Ds Tab (Bactrim (05/09/19 13:15) Vital Signs/I&O 05/09/19 10:50 Temp 36.4 Pulse 84 Resp 16 B/P (MAP) 128/74 (92) Pulse Ox 100 O2 Delivery Room Air Capillary Refill : Progress Note : Progress Note Hemoglobin is 10.9 well within the range of prior readings wbc normal at 7,500 BMP normal except glucose 208 INR is 1.0 acute abdominal x-ray shows no obstructive pattern there is an increased amount of stool throughout the colon pt has not been able to urinate he still seems pretty uncomfortable he may have some bladder distention bladder scan shows almost 600 cc ramos placed by nurse ~600 cc of clear urine return will leave catheter in for now, home with leg bag pt seems more comfortable UA - 3+ glucose, otherwise neg Departure Impression Primary Impression: Constipation Qualified Codes: K59.00 - Constipation, unspecified Additional Impression: Urinary retention Disposition: HOME, SELF-CARE Condition: Stable Departure-Patient Inst. Decision time for Depature: 13:29 Referrals: EMIL RITTER MD (PCP/Family) Primary Care Physician Patient Instructions: Constipation, Adult (DC), Urinary Retention Add. Discharge Instructions: Please call your urologist tomorrow morning AM let them know you had urinary retention and a Ramos catheter placed Scripts Sulfamethoxazole/Trimethoprim (Bactrim Ds Tablet) 1 Each Tablet 1 EACH PO DAILY for 7 Days, TAB Prov: BJORN VALENZUELA MD 05/09/19 BJORN VALENZUELA MD May 09, 2019 11:08
[2019-05-09 11:29] LABS: HEMATOCRIT 32 % (40-54); HEMOGLOBIN 10.9 G/DL (13.3-17.7); MEAN CORPUSCULAR HEMOGLOBIN 36 PG (25-34); MEAN CORPUSCULAR HGB CONC 34 G/DL (32-36); MEAN CORPUSCULAR VOLUME 105 FL (80-99); MEAN PLATELET VOLUME 9.5 FL (7.4-10.4); NEUTROPHILS % (AUTO) 74 % (42-75); PLATELET COUNT 157 10^3/uL (130-400); RED CELL DISTRIBUTION WIDTH 19.9 % (10.0-14.5); WHITE BLOOD COUNT 7.5 10^3/uL (4.3-11.0)
[2019-05-09 11:30] LABS: BASOPHILS % (AUTO) 0 % (0-10); EOSINOPHILS # (AUTO) 0.1 10^3/uL (0.0-0.3); EOSINOPHILS % (AUTO) 1 % (0-10); LYMPHOCYTES # (AUTO) 1.4 X 10^3 (1.0-4.0); LYMPHOCYTES % (AUTO) 19 % (12-44); MONOCYTES # (AUTO) 0.4 X 10^3 (0.0-1.0); MONOCYTES % (AUTO) 6 % (0-12); NEUTROPHILS # (AUTO) 5.6 X 10^3 (1.8-7.8)
[2019-05-09 11:46] LABS: PROTHROMBIN TIME PATIENT 13.8 SEC (12.2-14.7)
[2019-05-09 11:49] LABS: BUN/CREATININE RATIO 12; CALCIUM 9.2 MG/DL (8.5-10.1); CARBON DIOXIDE 20 MMOL/L (21-32); CHLORIDE 97 MMOL/L (98-107); CREATININE SERUM 0.83 MG/DL (0.60-1.30); GFR ESTIMATED > 60; GLUCOSE 208 MG/DL (70-105); POTASSIUM 3.8 MMOL/L (3.6-5.0); SODIUM 135 MMOL/L (135-145)
--- NOTE | 2019-05-09 12:15 | Diagnostic Imaging Report ---
EXAMINATION: Abdomen at 11:30 a.m. INDICATION: Constipation. FINDINGS: Supine and erect views were obtained. There is some gas in both the large and small bowel in a nonspecific fashion. This appearance is similar to the classified advertising clerk film from the CT abdomen/pelvis exam of 01/16/2019. CT exam did suggest nonobstructive enteritis but failed to show any sign of an acute abnormality otherwise. On this study, there is no evidence for bowel obstruction. There does appear to be a considerable amount of fecal material throughout the colon, however. There is no mass, organomegaly, or pathological calcification evident. The osseous structures are intact. IMPRESSION: 1. The bowel gas pattern is nonspecific. There is no acute abnormality identified. 2. There is a considerable amount of fecal material throughout the colon. Dictated by: Dictated on workstation # [id number]
[2019-05-09] MEDS ORDERED: POLY17PO6 PO (12:28)
[2019-05-09] MEDS ORDERED: LIDOCAINE UROJET 2% GEL 10 ML PKG ONE (12:53)
--- NOTE | 2019-05-09 12:55 | NUR ---
PERFORMED A BLADDER SCAN PER DR BOWMAN. PT HAS 593 ML URINE IN BLADDER. PT HAS ATTEMPTED TO VOID BUT IS UNABLE TO VOID.
--- NOTE | 2019-05-09 13:00 | NUR ---
16 FR G[place] [address]ACED PER DR'S ORDER, UTILIZED XYLOCAINE UROJET FOR COMFORT. CATHETER INSERTED WITHOUT DIFFICULTY PER ASEPTIC TECHNIQUE AND IMMEDIATE RETURNS FILL THE 350 ML METER AND OVERFLOW TO 400 ML IT CONTINUES TO DRAIN BUT MORE SLOWLY. NICOLAS TO ROOM TO REASSESS.
[2019-05-09] MEDS ORDERED: LIDOCAINE UROJET 2% GEL 10 ML PKG TOP ONE (13:15)
[2019-05-09] MEDS ORDERED: TRIM/SULFAMETH 160/800 (SEPTRA DS) TAB PO ONE (13:15)
[2019-05-09 13:25] LABS: CLARITY,URINE CLEAR; COLOR,URINE YELLOW; GLUCOSE, URINE (UA) 3+ (NEGATIVE); KETONES,URINE TRACE (NEGATIVE); NITRITE,URINE NEGATIVE (NEGATIVE); PROTEIN,URINE NEGATIVE (NEGATIVE)
[2019-05-09 13:26] LABS: BACTERIA,URINE NEGATIVE /HPF; BILIRUBIN,URINE NEGATIVE (NEGATIVE); LEUKOCYTE ESTERASE ,URINE NEGATIVE (NEGATIVE); RBC,URINE RARE /HPF
[2019-05-09] MEDS ORDERED: SULF1TAB35 PO (13:31)
[2019-05-09] MEDS ORDERED: HEParin (CENTRAL IV FLUSH) 500 UNIT/5 ML SYR ONE (14:00)
[2019-05-09 14:15] VITALS: BP 112/67
--- NOTE | 2019-05-09 14:15 | NUR ---
PT DISCHARGED TO HOME AFTER REVIEW OF HOME INSTRUCTIONS READ AND DISCUSSED. DID LEG BAG INSTRUCTION WITH PT AND . DISCUSSED NEED TO CALL UROLOGY TO SCHEDULE APPT FOR THE CATHETER REMOVAL. 650 ML URINE EMPTIED FROM THE LARGE CATHETER DRAINAGE BAG.
[2019-05-09] MEDS ORDERED: PIOG30TA38 PO (16:19)
[2019-05-09] MEDS ORDERED: GLIP5TAB13 PO (16:19)
[2019-05-09] MEDS ORDERED: MIDO2.5T PO (16:19)
[2019-05-09] MEDS ORDERED: OZEMPIC (16:19)
== END 2019-05-09 14:15 | disposition home or self-care (01) ==
LOC: EDUNIT# 10:48 → ER FS 10:50
DX: K59.00 Constipation, unspecified (principal); R33.9 Retention of urine, unspecified; I10 Essential (primary) hypertension; E11.9 Type 2 diabetes mellitus without complications; I25.10 Atherosclerotic heart disease of native coronary artery without angina pectoris; E78.00 Pure hypercholesterolemia, unspecified; D64.9 Anemia, unspecified; Z85.51 Personal history of malignant neoplasm of bladder; Z85.038 Personal history of other malignant neoplasm of large intestine; Z90.49 Acquired absence of other specified parts of digestive tract; Z86.718 Personal history of other venous thrombosis and embolism; Z86.711 Personal history of pulmonary embolism; Z79.02 Long term (current) use of antithrombotics/antiplatelets; Z88.8 Allergy status to other drugs, medicaments and biological substances; Z79.82 Long term (current) use of aspirin; Z79.51 Long term (current) use of inhaled steroids; Z79.84 Long term (current) use of oral hypoglycemic drugs; Z87.891 Personal history of nicotine dependence; Z95.5 Presence of coronary angioplasty implant and graft; Z82.49 Family history of ischemic heart disease and other diseases of the circulatory system; Z80.0 Family history of malignant neoplasm of digestive organs
CPT/HCPCS: 36415; 51702; 74019; 80048; 81000; 85025; 85610

== ENCOUNTER 2019-05-22 15:37 | Outpatient (RCR) | payer MEDICARE ==
[2019-03-06 13:07] LABS: BASOPHILS % (AUTO) 1 % (0-10); EOSINOPHILS # (AUTO) 0.2 10^3/uL (0.0-0.3); EOSINOPHILS % (AUTO) 5 % (0-10); HEMATOCRIT 30 % (40-54); LYMPHOCYTES # (AUTO) 1.4 X 10^3 (1.0-4.0); LYMPHOCYTES % (AUTO) 32 % (12-44); MEAN CORPUSCULAR HEMOGLOBIN 31 PG (25-34); MEAN CORPUSCULAR HGB CONC 33 G/DL (32-36); MEAN CORPUSCULAR VOLUME 93 FL (80-99); MEAN PLATELET VOLUME 8.5 FL (7.4-10.4); MONOCYTES # (AUTO) 0.6 X 10^3 (0.0-1.0); MONOCYTES % (AUTO) 14 % (0-12); NEUTROPHILS # (AUTO) 2.2 X 10^3 (1.8-7.8); NEUTROPHILS % (AUTO) 49 % (42-75); PLATELET COUNT 154 10^3/uL (130-400); RED CELL DISTRIBUTION WIDTH 19.4 % (10.0-14.5); WHITE BLOOD COUNT 4.5 10^3/uL (4.3-11.0)
[2019-03-06 13:28] LABS: ALANINE AMINOTRANSFERASE 19 U/L (0-55); ALBUMIN 3.5 GM/DL (3.2-4.5); ALKALINE PHOSPHATASE 78 U/L (40-136); BILIRUBIN,TOTAL 0.3 MG/DL (0.1-1.0); BUN/CREATININE RATIO 8; CALCIUM 8.7 MG/DL (8.5-10.1); CARBON DIOXIDE 25 MMOL/L (21-32); CHLORIDE 100 MMOL/L (98-107); GFR ESTIMATED > 60; GLUCOSE 187 MG/DL (70-105); POTASSIUM 4.1 MMOL/L (3.6-5.0); SODIUM 131 MMOL/L (135-145); TOTAL PROTEIN 6.4 GM/DL (6.4-8.2)
[2019-03-14 10:15] LABS: BASOPHILS % (AUTO) 0 % (0-10); EOSINOPHILS # (AUTO) 0.4 10^3/uL (0.0-0.3); EOSINOPHILS % (AUTO) 6 % (0-10); HEMATOCRIT 37 % (40-54); HEMOGLOBIN 12.5 G/DL (13.3-17.7); LYMPHOCYTES # (AUTO) 1.6 X 10^3 (1.0-4.0); LYMPHOCYTES % (AUTO) 28 % (12-44); MEAN CORPUSCULAR HEMOGLOBIN 31 PG (25-34); MEAN CORPUSCULAR HGB CONC 33 G/DL (32-36); MEAN CORPUSCULAR VOLUME 93 FL (80-99); MEAN PLATELET VOLUME 10.3 FL (7.4-10.4); MONOCYTES # (AUTO) 0.3 X 10^3 (0.0-1.0); MONOCYTES % (AUTO) 5 % (0-12); NEUTROPHILS # (AUTO) 3.5 X 10^3 (1.8-7.8); NEUTROPHILS % (AUTO) 61 % (42-75); PLATELET COUNT 78 10^3/uL (130-400); RED CELL DISTRIBUTION WIDTH 18.8 % (10.0-14.5); WHITE BLOOD COUNT 5.7 10^3/uL (4.3-11.0)
[2019-03-14 10:32] LABS: BUN/CREATININE RATIO 13; CALCIUM 9.3 MG/DL (8.5-10.1); CARBON DIOXIDE 20 MMOL/L (21-32); CHLORIDE 101 MMOL/L (98-107); CREATININE SERUM 1.07 MG/DL (0.60-1.30); GFR ESTIMATED > 60; GLUCOSE 161 MG/DL (70-105); POTASSIUM 4.4 MMOL/L (3.6-5.0); SODIUM 134 MMOL/L (135-145)
[2019-03-27 13:13] LABS: BASOPHILS % (AUTO) 0 % (0-10); EOSINOPHILS # (AUTO) 0.1 10^3/uL (0.0-0.3); EOSINOPHILS % (AUTO) 1 % (0-10); HEMATOCRIT 28 % (40-54); HEMOGLOBIN 9.5 G/DL (13.3-17.7); LYMPHOCYTES # (AUTO) 1.4 X 10^3 (1.0-4.0); LYMPHOCYTES % (AUTO) 27 % (12-44); MEAN CORPUSCULAR HEMOGLOBIN 32 PG (25-34); MEAN CORPUSCULAR HGB CONC 34 G/DL (32-36); MEAN CORPUSCULAR VOLUME 95 FL (80-99); MEAN PLATELET VOLUME 10.1 FL (7.4-10.4); MONOCYTES # (AUTO) 0.4 X 10^3 (0.0-1.0); MONOCYTES % (AUTO) 7 % (0-12); NEUTROPHILS # (AUTO) 3.5 X 10^3 (1.8-7.8); NEUTROPHILS % (AUTO) 65 % (42-75); PLATELET COUNT 130 10^3/uL (130-400); WHITE BLOOD COUNT 5.3 10^3/uL (4.3-11.0)
[2019-03-27 13:28] LABS: ALANINE AMINOTRANSFERASE 35 U/L (0-55); ALBUMIN 3.4 GM/DL (3.2-4.5); ALKALINE PHOSPHATASE 85 U/L (40-136); BILIRUBIN,TOTAL 0.3 MG/DL (0.1-1.0); BUN/CREATININE RATIO 8; CALCIUM 8.6 MG/DL (8.5-10.1); CARBON DIOXIDE 21 MMOL/L (21-32); CHLORIDE 99 MMOL/L (98-107); CREATININE SERUM 0.97 MG/DL (0.60-1.30); GFR ESTIMATED > 60; GLUCOSE 234 MG/DL (70-105); MAGNESIUM 1.7 MG/DL (1.6-2.4); POTASSIUM 3.1 MMOL/L (3.6-5.0); SODIUM 134 MMOL/L (135-145); TOTAL PROTEIN 6.1 GM/DL (6.4-8.2)
[2019-04-18 10:55] LABS: BASOPHILS % (AUTO) 0 % (0-10); EOSINOPHILS # (AUTO) 0.2 10^3/uL (0.0-0.3); EOSINOPHILS % (AUTO) 3 % (0-10); HEMATOCRIT 32 % (40-54); HEMOGLOBIN 10.6 G/DL (13.3-17.7); LYMPHOCYTES # (AUTO) 2.1 X 10^3 (1.0-4.0); LYMPHOCYTES % (AUTO) 33 % (12-44); MEAN CORPUSCULAR HEMOGLOBIN 34 PG (25-34); MEAN CORPUSCULAR HGB CONC 34 G/DL (32-36); MEAN CORPUSCULAR VOLUME 101 FL (80-99); MEAN PLATELET VOLUME 9.5 FL (7.4-10.4); MONOCYTES # (AUTO) 0.7 X 10^3 (0.0-1.0); MONOCYTES % (AUTO) 11 % (0-12); NEUTROPHILS # (AUTO) 3.4 X 10^3 (1.8-7.8); NEUTROPHILS % (AUTO) 52 % (42-75); PLATELET COUNT 174 10^3/uL (130-400); RED CELL DISTRIBUTION WIDTH 20.6 % (10.0-14.5); WHITE BLOOD COUNT 6.5 10^3/uL (4.3-11.0)
[2019-04-18 11:12] LABS: ALANINE AMINOTRANSFERASE 16 U/L (0-55); ALBUMIN 3.7 GM/DL (3.2-4.5); ALKALINE PHOSPHATASE 74 U/L (40-136); BILIRUBIN,TOTAL 0.5 MG/DL (0.1-1.0); BUN/CREATININE RATIO 11; CALCIUM 8.7 MG/DL (8.5-10.1); CARBON DIOXIDE 24 MMOL/L (21-32); CHLORIDE 98 MMOL/L (98-107); CREATININE SERUM 1.16 MG/DL (0.60-1.30); GFR ESTIMATED > 60; GLUCOSE 278 MG/DL (70-105); MAGNESIUM 1.8 MG/DL (1.6-2.4); POTASSIUM 4.2 MMOL/L (3.6-5.0); SODIUM 129 MMOL/L (135-145); TOTAL PROTEIN 5.9 GM/DL (6.4-8.2)
[2019-05-02 15:01] LABS: BASOPHILS % (AUTO) 0 % (0-10); EOSINOPHILS # (AUTO) 0.1 10^3/uL (0.0-0.3); EOSINOPHILS % (AUTO) 2 % (0-10); HEMATOCRIT 32 % (40-54); HEMOGLOBIN 10.7 G/DL (13.3-17.7); LYMPHOCYTES # (AUTO) 1.5 X 10^3 (1.0-4.0); LYMPHOCYTES % (AUTO) 23 % (12-44); MEAN CORPUSCULAR HEMOGLOBIN 35 PG (25-34); MEAN CORPUSCULAR HGB CONC 33 G/DL (32-36); MEAN CORPUSCULAR VOLUME 105 FL (80-99); MEAN PLATELET VOLUME 9.6 FL (7.4-10.4); MONOCYTES # (AUTO) 0.3 X 10^3 (0.0-1.0); MONOCYTES % (AUTO) 4 % (0-12); NEUTROPHILS # (AUTO) 4.5 X 10^3 (1.8-7.8); NEUTROPHILS % (AUTO) 71 % (42-75); PLATELET COUNT 159 10^3/uL (130-400); RED CELL DISTRIBUTION WIDTH 20.2 % (10.0-14.5); WHITE BLOOD COUNT 6.4 10^3/uL (4.3-11.0)
[2019-05-02 15:21] LABS: ALBUMIN 3.7 GM/DL (3.2-4.5); BILIRUBIN,TOTAL 0.5 MG/DL (0.1-1.0); CALCIUM 8.9 MG/DL (8.5-10.1); CREATININE SERUM 1.22 MG/DL (0.60-1.30); POTASSIUM 4.5 MMOL/L (3.6-5.0); TOTAL PROTEIN 6.5 GM/DL (6.4-8.2)
[~2019-05-22 15:37] MED LIST changes: +COSYNTROPIN 0.25 MG/ML (CORTROSYN) VIAL IV ONE; +D5W 500 ML IV (CANCER CTR) 500 ML IV SCH; +D5W IV SCH; +FOSAPREPITANT DIMEGLUMINE 150 MG in NS (IVPB) CANCER CENTER ONLY 150 ML IV SCH; +GLIP5TAB13 PO; +MIDO2.5T PO; +NS IV 500 ML (CANCER CENTER) 500 ML ONE; +OXALIPLATIN IV SCH; +OZEMPIC; +PALONOSETRON HCL 0.25 MG, DEXAMETHASONE INJECTION 10 MG in NS (IVPB) CANCER CENTER 50 ML IV SCH; +PIOG30TA38 PO; +POLY17PO6 PO; +SULF1TAB35 PO; +diphenhydrAMINE 50 MG/ML INJ (CANCER CENTER) ONE; +methylPREDNISolone 125 MG/2 ML (SOLU-MEDROL) CANCER CTR ONE
[2019-05-22 16:08] LABS: BASOPHILS % (AUTO) 0 % (0-10); EOSINOPHILS # (AUTO) 0.1 10^3/uL (0.0-0.3); EOSINOPHILS % (AUTO) 1 % (0-10); HEMATOCRIT 33 % (40-54); LYMPHOCYTES # (AUTO) 2.1 X 10^3 (1.0-4.0); LYMPHOCYTES % (AUTO) 29 % (12-44); MEAN CORPUSCULAR HEMOGLOBIN 36 PG (25-34); MEAN CORPUSCULAR HGB CONC 33 G/DL (32-36); MEAN CORPUSCULAR VOLUME 107 FL (80-99); MONOCYTES # (AUTO) 0.3 X 10^3 (0.0-1.0); MONOCYTES % (AUTO) 4 % (0-12); NEUTROPHILS # (AUTO) 4.6 X 10^3 (1.8-7.8); NEUTROPHILS % (AUTO) 65 % (42-75); PLATELET COUNT 229 10^3/uL (130-400); RED CELL DISTRIBUTION WIDTH 18.9 % (10.0-14.5)
[2019-05-22 16:28] LABS: ALANINE AMINOTRANSFERASE 16 U/L (0-55); ALBUMIN 4.1 GM/DL (3.2-4.5); ALKALINE PHOSPHATASE 64 U/L (40-136); BILIRUBIN,TOTAL 0.6 MG/DL (0.1-1.0); BUN/CREATININE RATIO 14; CALCIUM 9.5 MG/DL (8.5-10.1); CARBON DIOXIDE 21 MMOL/L (21-32); CHLORIDE 98 MMOL/L (98-107); CREATININE SERUM 1.14 MG/DL (0.60-1.30); GFR ESTIMATED > 60; GLUCOSE 190 MG/DL (70-105); POTASSIUM 4.2 MMOL/L (3.6-5.0); SODIUM 133 MMOL/L (135-145)
== END 2019-06-04 | disposition home or self-care (01) ==
LOC: ONC 15:37
PROVIDERS: ATTEND Internal Medicine Hematology & Oncology
DX: Z51.11 Encounter for antineoplastic chemotherapy (principal); C18.2 Malignant neoplasm of ascending colon; C77.2 Secondary and unspecified malignant neoplasm of intra-abdominal lymph nodes; D64.9 Anemia, unspecified; I25.10 Atherosclerotic heart disease of native coronary artery without angina pectoris; E11.9 Type 2 diabetes mellitus without complications; I10 Essential (primary) hypertension; Z85.51 Personal history of malignant neoplasm of bladder; Z79.84 Long term (current) use of oral hypoglycemic drugs; Z79.82 Long term (current) use of aspirin; Z79.899 Other long term (current) drug therapy
CPT/HCPCS: 36415; 36591; 80048; 80053; 82533; 83735; 85025; 96367; 96372; 96375; 96413; 96415; 99213

== ENCOUNTER → 2019-06-19 | Outpatient (CLI) | payer MEDICARE ==
[~2019-06-19] MED LIST changes: -COSYNTROPIN 0.25 MG/ML (CORTROSYN) VIAL IV ONE; -D5W 500 ML IV (CANCER CTR) 500 ML IV SCH; -D5W IV SCH; -FOSAPREPITANT DIMEGLUMINE 150 MG in NS (IVPB) CANCER CENTER ONLY 150 ML IV SCH; -NS IV 500 ML (CANCER CENTER) 500 ML ONE; -OXALIPLATIN IV SCH; -PALONOSETRON HCL 0.25 MG, DEXAMETHASONE INJECTION 10 MG in NS (IVPB) CANCER CENTER 50 ML IV SCH; -diphenhydrAMINE 50 MG/ML INJ (CANCER CENTER) ONE; -methylPREDNISolone 125 MG/2 ML (SOLU-MEDROL) CANCER CTR ONE
== END ==
LOC: LAB 15:11
PROVIDERS: ATTEND Specialist
DX: N40.1 Benign prostatic hyperplasia with lower urinary tract symptoms (principal)
CPT/HCPCS: 36415; 84153

== ENCOUNTER → 2019-07-22 | Outpatient (CLI) | payer MEDICARE ==
[2019-07-22 12:26] LABS: BASOPHILS # (AUTO) 0.1 10^3/uL (0.0-0.1); BASOPHILS % (AUTO) 1 % (0-10); EOSINOPHILS # (AUTO) 0.2 10^3/uL (0.0-0.3); EOSINOPHILS % (AUTO) 3 % (0-10); HEMATOCRIT 37 % (40-54); HEMOGLOBIN 12.2 G/DL (13.3-17.7); LYMPHOCYTES # (AUTO) 1.6 X 10^3 (1.0-4.0); LYMPHOCYTES % (AUTO) 26 % (12-44); MEAN CORPUSCULAR HEMOGLOBIN 34 PG (25-34); MEAN CORPUSCULAR HGB CONC 33 G/DL (32-36); MEAN CORPUSCULAR VOLUME 103 FL (80-99); MEAN PLATELET VOLUME 9.3 FL (7.4-10.4); MONOCYTES # (AUTO) 0.5 X 10^3 (0.0-1.0); MONOCYTES % (AUTO) 8 % (0-12); NEUTROPHILS # (AUTO) 3.9 X 10^3 (1.8-7.8); NEUTROPHILS % (AUTO) 62 % (42-75); PLATELET COUNT 268 10^3/uL (130-400); RED CELL DISTRIBUTION WIDTH 14.5 % (10.0-14.5); WHITE BLOOD COUNT 6.3 10^3/uL (4.3-11.0)
== END ==
LOC: LAB FS 11:23
PROVIDERS: ATTEND Internal Medicine Gastroenterology
DX: D50.0 Iron deficiency anemia secondary to blood loss (chronic) (principal)
CPT/HCPCS: 36415; 82728; 85025

== ENCOUNTER → 2019-07-22 | Outpatient (CLI) | payer MEDICARE ==
[2019-07-22 12:23] LABS: CARBON DIOXIDE 22 MMOL/L (21-32); CHLORIDE 90 MMOL/L (98-107); POTASSIUM 4.5 MMOL/L (3.6-5.0); SODIUM 128 MMOL/L (135-145)
[2019-07-22 12:24] LABS: ALANINE AMINOTRANSFERASE 18 U/L (0-55); ALBUMIN 4.4 GM/DL (3.2-4.5); ALKALINE PHOSPHATASE 68 U/L (40-136); BILIRUBIN,TOTAL 0.3 MG/DL (0.1-1.0); BUN/CREATININE RATIO 12; CALCIUM 9.7 MG/DL (8.5-10.1); CREATININE SERUM 1.13 MG/DL (0.60-1.30); GFR ESTIMATED > 60; GLUCOSE 135 MG/DL (70-105); TOTAL PROTEIN 7.3 GM/DL (6.4-8.2)
[2019-07-22 15:07] LABS: CHOLESTEROL 117 MG/DL (< 200); HDL CHOLESTEROL 48 MG/DL (40-60); TRIGLYCERIDES 61 MG/DL (<150); VLDL CHOLESTEROL 12 MG/DL (5-40)
== END ==
LOC: LAB FS 11:19
DX: E11.65 Type 2 diabetes mellitus with hyperglycemia (principal)
CPT/HCPCS: 36415; 80053; 80061; 82043; 83036; 84443

== ENCOUNTER → 2019-08-08 | Outpatient (CLI) | payer OTHER ==
[~2019-08-08] MED LIST changes: +[UNRECOGNIZED DRUG - CODE] PO; -[UNRECOGNIZED DRUG - CODE] PO
[2019-08-08 15:12] LABS: FREE T4 (FREE THYROXINE) 1.63 NG/DL (0.70-1.48)
== END ==
LOC: LAB FS 10:54
PROVIDERS: ATTEND Internal Medicine Gastroenterology
DX: D53.9 Nutritional anemia, unspecified (principal)
CPT/HCPCS: 36415; 82607; 84439; 84443

== ENCOUNTER → 2019-08-22 | Outpatient (CLI) | payer MEDICARE, OTHER | LOC: CARD 12:55 | PROVIDERS: ATTEND Internal Medicine Cardiovascular Disease | DX: I10 Essential (primary) hypertension (principal); R55 Syncope and collapse; E11.9 Type 2 diabetes mellitus without complications; I25.10 Atherosclerotic heart disease of native coronary artery without angina pectoris | CPT/HCPCS: 93306 ==

== ENCOUNTER 2019-09-11 09:23 | Outpatient (RCR) | payer MEDICARE ==
[2019-06-19 15:09] LABS: BASOPHILS % (AUTO) 0 % (0-10); EOSINOPHILS # (AUTO) 0.1 10^3/uL (0.0-0.3); EOSINOPHILS % (AUTO) 2 % (0-10); HEMATOCRIT 32 % (40-54); LYMPHOCYTES # (AUTO) 1.9 X 10^3 (1.0-4.0); LYMPHOCYTES % (AUTO) 34 % (12-44); MEAN CORPUSCULAR HEMOGLOBIN 36 PG (25-34); MEAN CORPUSCULAR HGB CONC 34 G/DL (32-36); MEAN CORPUSCULAR VOLUME 106 FL (80-99); MEAN PLATELET VOLUME 9.2 FL (7.4-10.4); MONOCYTES # (AUTO) 0.4 X 10^3 (0.0-1.0); MONOCYTES % (AUTO) 7 % (0-12); NEUTROPHILS # (AUTO) 3.2 X 10^3 (1.8-7.8); NEUTROPHILS % (AUTO) 57 % (42-75); PLATELET COUNT 172 10^3/uL (130-400); RED CELL DISTRIBUTION WIDTH 17.3 % (10.0-14.5); WHITE BLOOD COUNT 5.6 10^3/uL (4.3-11.0)
[2019-06-19 15:34] LABS: ALANINE AMINOTRANSFERASE 12 U/L (0-55); ALKALINE PHOSPHATASE 69 U/L (40-136); BILIRUBIN,TOTAL 0.4 MG/DL (0.1-1.0); BUN/CREATININE RATIO 11; CALCIUM 9.5 MG/DL (8.5-10.1); CARBON DIOXIDE 25 MMOL/L (21-32); CHLORIDE 97 MMOL/L (98-107); CREATININE SERUM 1.03 MG/DL (0.60-1.30); GFR ESTIMATED > 60; GLUCOSE 129 MG/DL (70-105); POTASSIUM 4.3 MMOL/L (3.6-5.0); SODIUM 130 MMOL/L (135-145); TOTAL PROTEIN 6.7 GM/DL (6.4-8.2)
[~2019-09-11 09:23] MED LIST changes: -CATHETER FLUSH 10 ML SYR IV PRN; -HOLD METFORMIN - RECEIVED CONTRAST 20 ML VIAL IV SCH; -IOHEXOL 350 MG/ML 100 ML (OMNIPAQUE 350) VIAL IV ONE; -NS 100 ML (IVPB) BAG IV ONE
== END 2019-09-17 | disposition home or self-care (01) ==
LOC: ONC 09:23
PROVIDERS: ATTEND Internal Medicine Hematology & Oncology
DX: C18.2 Malignant neoplasm of ascending colon (principal); C67.9 Malignant neoplasm of bladder, unspecified; C77.2 Secondary and unspecified malignant neoplasm of intra-abdominal lymph nodes; D64.81 Anemia due to antineoplastic chemotherapy; I25.10 Atherosclerotic heart disease of native coronary artery without angina pectoris; E11.9 Type 2 diabetes mellitus without complications; I10 Essential (primary) hypertension; K92.2 Gastrointestinal hemorrhage, unspecified; I65.29 Occlusion and stenosis of unspecified carotid artery; I44.30 Unspecified atrioventricular block; K11.20 Sialoadenitis, unspecified; I95.9 Hypotension, unspecified; Z79.82 Long term (current) use of aspirin; Z79.84 Long term (current) use of oral hypoglycemic drugs; Z79.899 Other long term (current) drug therapy; Z90.49 Acquired absence of other specified parts of digestive tract; Z87.891 Personal history of nicotine dependence; Z98.61 Coronary angioplasty status; Z80.9 Family history of malignant neoplasm, unspecified
CPT/HCPCS: 36591; 80053; 82378; 85025

== ENCOUNTER → 2019-09-11 | Outpatient (CLI) | payer MEDICARE ==
[~2019-09-11] MED LIST changes: +CATHETER FLUSH 10 ML SYR IV PRN; +HOLD METFORMIN - RECEIVED CONTRAST 20 ML VIAL IV SCH; +IOHEXOL 350 MG/ML 100 ML (OMNIPAQUE 350) VIAL IV ONE; +NS 100 ML (IVPB) BAG IV ONE
--- NOTE | 2019-09-11 11:20 | Diagnostic Imaging Report ---
PROCEDURE: CT abdomen with contrast only. TECHNIQUE: Multiple contiguous axial images were obtained through the abdomen after the administration of intravenous contrast. Auto Exposure Controls were utilized during the CT exam to meet ALARA standards for radiation dose reduction. INDICATION: Bladder cancer. COMPARISON: January 16, 2019 and December 04, 2018. FINDINGS: Bibasilar fibro-emphysematous changes again noted without new focal pulmonary opacity. The liver and spleen are unremarkable. The adrenal glands are unremarkable. The pancreas is unremarkable. The gallbladder is unremarkable. Right renal cyst is again identified. Otherwise, the right kidney and visualized portions of the right ureter are unremarkable. Left renal cyst. Otherwise, the left kidney and visualized left ureter are otherwise unremarkable. Moderate vascular calcifications within the abdominal aorta and its branch vessels without aneurysmal dilatation of the abdominal aorta. No bowel obstruction or pneumatosis. Postsurgical changes within the bowel within the right abdomen are again noted. No significant adenopathy, free air, or free fluid within the abdomen. No acute osseous abnormality. Mild narrowing of the origin of the celiac artery. IMPRESSION: Stable postsurgical changes associated with the right-sided bowel without evidence of obstruction or pneumatosis. Bibasilar fibro-emphysematous changes. Additional stable findings as above. Dictated by: Dictated on workstation # [id number]
== END ==
LOC: RAD 09:59
PROVIDERS: ATTEND Internal Medicine Hematology & Oncology
DX: C67.9 Malignant neoplasm of bladder, unspecified (principal); J43.9 Emphysema, unspecified; Z98.890 Other specified postprocedural states
CPT/HCPCS: 74160

== ENCOUNTER 2019-11-28 09:50 | Outpatient (RCR) | payer MEDICARE ==
[~2019-11-28] VITALS: Ht 193 cm; Wt 77.3 kg
[~2019-11-28 09:50] MED LIST changes: -HYDR-3641 PO; +HYDR-4164 PO
== END 2019-11-28 16:30 | disposition home or self-care (01) ==
LOC: SDC 09:50
PROVIDERS: ATTEND Surgery
DX: Z01.812 Encounter for preprocedural laboratory examination (principal); Z11.59 Encounter for screening for other viral diseases; Z85.038 Personal history of other malignant neoplasm of large intestine
CPT/HCPCS: 87635

== ENCOUNTER → 2019-11-28 | Outpatient (CLI) | payer MEDICARE ==
[~2019-11-28] MED LIST changes: +ATOR20TA66 PO; +HYDR-3641 PO; +LEVO150T6 PO; +PANT20TA3 PO; +SEMA1PEN SQ
== END ==
LOC: LAB FS 10:12
PROVIDERS: ATTEND Surgery
DX: Z01.818 Encounter for other preprocedural examination (principal); Z11.59 Encounter for screening for other viral diseases
CPT/HCPCS: 87635

== ENCOUNTER 2019-11-29 13:22 | Day surgery (SDC) | payer MEDICARE ==
[~2019-11-29] VITALS: Ht 193 cm; Wt 77.3 kg
[~2019-11-29 13:22] MED LIST changes: +LACTATED RINGERS 1,000 ML IV ONE
[2019-11-29] MEDS ORDERED: LACTATED RINGERS 1,000 ML IV STA (13:28)
[2019-11-29 13:49] VITALS: BP 130/84
--- NOTE | 2019-11-29 13:53 | Progress Note-Pre Operative ---
Pre-Operative Progress Note H&P Reviewed The H&P was reviewed, patient examined and no changes noted. Date Seen by Provider: November 29, 2019 Time Seen by Provider: 13:53 Date H&P Reviewed: November 29, 2019 Time H&P Reviewed: 13:53 Pre-Operative Diagnosis: history colon cancer SRIKANTH AGUILAR DO November 29, 2019 13:53
[2019-11-29] MEDS ORDERED: PROPOFOL INJECTION 50 ML IV ONE (14:01)
[2019-11-29] MEDS ORDERED: MIDAZOLAM 2 MG/2 ML (VERSED) VIAL ONE (14:01)
[2019-11-29 14:45] VITALS: BP 103/67
[2019-11-29 14:50] VITALS: BP 112/67
--- NOTE | 2019-11-29 14:54 | Anesthesia-General Post-Op ---
MAC Patient Condition Mental Status/LOC: Same as Preop Cardiovascular: Satisfactory Nausea/Vomiting: Absent Respiratory: Satisfactory Pain: Controlled Complications: Absent Post Op Complications Complications None Follow Up Care/Instructions Patient Instructions None needed. Anesthesiology Discharge Order Discharge Order Patient is doing well, no complaints, stable vital signs, no apparent adverse anesthesia problems. No complications reported per nursing. JEANETTE GAONA CRNA November 29, 2019 14:54
[2019-11-29 14:55] VITALS: BP 115/68
--- OUTSIDE RECORDS SUMMARY | 2019-11-29 15:09 | XMS REPORT | Continuity of Care Document ---
Author Organization Unknown Address Unknown Phone Unavailable Allergies Active Description Code Type Severity Reaction Onset Reported/Identified Relationship to Patient Clinical Status Yes No Allergy Information Available [id number] Drug Allergy Unknown N/A 018 Yes No Known Drug Allergies [id number] Drug Allergy Unknown N/A 11/15/2018 Yes oxaliplatin [id number] Drug Aller gy Moderate N/A 03/07/2019 Medications There is no data. Problems Date Dx Coded Attending Type Code Diagnosis Diagnosed By 06/15/1600 NAHOMY ORDOÑEZ MD, Ot C18.2 MALIGNANT NEOPLASM OF ASCENDING COLON 06/15/1600 NAHOMY ORDOÑEZ MD, Ot C77.2 SECONDARY AND UNSP MALIGNANT NEOPLASM OF 06/15/1600 NAHOMY ORDOÑEZ MD, Ot D64.9 ANEMIA, UNSPECIFIED 06/15/1600 NAHOMY ORDOÑEZ MD Ot E11.9 TYPE 2 DIABETES MELLITUS WITHOUT COMPLIC 06/15/1600 NAHOMY ORDOÑEZ MD Ot I10 ESSENTIAL (PRIMARY) HYPERTENSION 06/15/1600 NAHOMY ORDOÑEZ MD Ot I25.10 ATHSCL HEART DISEASE OF [place] CORONARY 06/15/1600 NAHOMY ORDOÑEZ MD Ot Z51.11 ENCOUNTER FOR ANTINEOPLASTIC CHEMOTHERAP 06/15/1600 NAHOMY ORDOÑEZ MD Ot Z79.82 [facility] (CURRENT) 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 06/15/1600 NAHOMY ORDOÑEZ MD Ot Z79.84 [facility] (CURRENT) USE OF ORAL HYPOGLYC 06/15/1600 NAHOMY ORDOÑEZ MD Ot Z79.899 OTHER [facility] (CURRENT) DRUG THERAPY 06/15/1600 NAHOMY ORDOÑEZ MD Ot Z85.51 PERSONAL HISTORY OF MALIGNANT NEOPLASM O 07/05/2018 CONCHA ARMENTA MD, Ot E03. 9 HYPOTHYROIDISM, UNSPECIFIED 07/05/2018 CONCHA ARMENTA MD, Ot E11. 65 TYPE 2 DIABETES MELLITUS WITH HYPERGLYCE 07/05/2018 CONCHA ARMENTA MD, Ot E78. 5 HYPERLIPIDEMIA, UNSPECIFIED 07/05/2018 CONCHA ARMENTA MD, Ot E86. 1 HYPOVOLEMIA 07/05/2018 CONCHA ARMENTA MD, Ot E87. 2 ACIDOSIS 07/05/2018 CONCHA ARMENTA MD Ot I10 ESSENTIAL (PRIMARY) HYPERTENSION 07/05/2018 CONCHA ARMENTA MD, Ot I21. 4 NON-ST ELEVATION (NSTEMI) MYOCARDIAL INF 07/05/2018 CONCHA ARMENTA MD, Ot I25. 10 ATHSCL HEART DISEASE OF [place] CORONARY 07/05/2018 CONCHA ARMENTA MD, Ot I44. 0 ATRIOVENTRICULAR BLOCK, FIRST DEGREE 07/05/2018 CONCHA ARMENTA MD Ot I95. 89 OTHER HYPOTENSION 07/05/2018 CONCHA ARMENTA MD, Ot N28. 9 DISORDER OF KIDNEY AND URETER, UNSPECIFI 07/05/2018 CONCHA ARMENTA MD Ot R09. 89 OTH SYMPTOMS AND SIGNS INVOLVING THE CIR 07/05/2018 CONCHA ARMENTA MD, Ot R19. 7 DIARRHEA, UNSPECIFIED 07/05/2018 CONCHA ARMENTA MD, Ot Z28. 9 IMMUNIZATION NOT CARRIED OUT FOR UNSPECI 07/05/2018 CONCHA ARMENTA MD Ot Z66 DO NOT RESUSCITATE 07/05/2018 CONCHA ARMENTA MD Ot Z79. 01 [facility] (CURRENT) USE OF ANTICOAGULANT 07/05/2018 CONCHA ARMENTA MD Ot Z82. 49 FAMILY HX OF [place] HEART DIS AND OTH DI 07/05/2018 CONCHA ARMENTA MD Ot Z85. 51 PERSONAL HISTORY OF MALIGNANT NEOPLASM O 07/05/2018 CONCHA ARMENTA MD Ot Z86.010 PERSONAL HISTORY OF COLONIC POLYPS 07/05/2018 CONCHA ARMENTA MD Ot Z86.711 PERSONAL HISTORY OF PULMONARY EMBOLISM 07/05/2018 CONCHA ARMENTA MD Ot Z86.718 PERSONAL HISTORY OF OTHER VENOUS THROMBO 07/05/2018 CONCHA ARMENTA MD Ot Z87.891 PERSONAL HISTORY OF NICOTINE DEPENDENCE 07/05/2018 CONCHA ARMENTA MD Ot Z95. 5 PRESENCE OF CORONARY ANGIOPLASTY IMPLANT 07/06/2018 CONCHA ARMENTA MD Ot E03. 9 HYPOTHYROIDISM, UNSPECIFIED 07/06/2018 CONCHA ARMENTA MD Ot E11. 65 TYPE 2 DIABETES MELLITUS WITH HYPERGLYCE 07/06/2018 CONCHA ARMENTA MD, Ot E78. 5 HYPERLIPIDEMIA, UNSPECIFIED 07/06/2018 CONCHA ARMENTA MD, Ot E86. 1 HYPOVOLEMIA 07/06/2018 CONCHA ARMENTA MD Ot E87. 2 ACIDOSIS 07/06/2018 CONCHA ARMENTA MD, Ot I10 ESSENTIAL (PRIMARY) HYPERTENSION 07/06/2018 CONCHA ARMENTA MD Ot I21. 4 NON-ST ELEVATION (NSTEMI) MYOCARDIAL INF 07/06/2018 CONCHA ARMENTA MD, Ot I25. 10 ATHSCL HEART DISEASE OF [place] CORONARY 07/06/2018 CONCHA ARMENTA MD Ot I44. 0 ATRIOVENTRICULAR BLOCK, FIRST DEGREE 07/06/2018 CONCHA ARMENTA MD Ot I95. 89 OTHER HYPOTENSION 07/06/2018 CONCHA ARMENTA MD, Ot N28. 9 DISORDER OF KIDNEY AND URETER, UNSPECIFI 07/06/2018 CONCHA ARMENTA MD Ot R09. 89 OTH SYMPTOMS AND SIGNS INVOLVING THE CIR 07/06/2018 CONCHA ARMENTA MD, Ot R19. 7 DIARRHEA, UNSPECIFIED 07/06/2018 CONCHA ARMENTA MD, Ot Z28. 9 IMMUNIZATION NOT CARRIED OUT FOR UNSPECI 07/06/2018 CONCHA ARMENTA MD Ot Z66 DO NOT RESUSCITATE 07/06/2018 CONCHA ARMENTA MD, Ot Z79. 01 [facility] (CURRENT) USE OF ANTICOAGULANT 07/06/2018 CONCHA ARMENTA MD Ot Z82. 49 FAMILY HX OF [place] HEART DIS AND OTH DI 07/06/2018 CONCHA ARMENTA MD Ot Z85. 51 PERSONAL HISTORY OF MALIGNANT NEOPLASM O 07/06/2018 CONCHA ARMENTA MD Ot Z86.010 PERSONAL HISTORY OF COLONIC POLYPS 07/06/2018 CONCHA ARMENTA MD Ot Z86.711 PERSONAL HISTORY OF PULMONARY EMBOLISM 07/06/2018 CONCHA ARMENTA MD Ot Z86.718 PERSONAL HISTORY OF OTHER VENOUS THROMBO 07/06/2018 CONCHA ARMENTA MD Ot Z87.891 PERSONAL HISTORY OF NICOTINE DEPENDENCE 07/06/2018 CONCHA ARMENTA MD Ot Z95. 5 PRESENCE OF CORONARY ANGIOPLASTY IMPLANT 07/06/2018 CONCHA ARMENTA MD, Ot E03. 9 HYPOTHYROIDISM, UNSPECIFIED 07/06/2018 CONCHA ARMENTA MD Ot E11. 65 TYPE 2 DIABETES MELLITUS WITH HYPERGLYCE 07/06/2018 CONCHA ARMENTA MD, Ot E78. 5 HYPERLIPIDEMIA, UNSPECIFIED 07/06/2018 CONCHA ARMENTA MD, Ot E86. 1 HYPOVOLEMIA 07/06/2018 CONCHA ARMENTA MD Ot E87. 2 ACIDOSIS 07/06/2018 CONCHA ARMENTA MD, Ot I10 ESSENTIAL (PRIMARY) HYPERTENSION 07/06/2018 CONCHA ARMENTA MD, Ot I21. 4 NON-ST ELEVATION (NSTEMI) MYOCARDIAL INF 07/06/2018 CONCHA ARMENTA MD, Ot I25. 10 ATHSCL HEART DISEASE OF [place] CORONARY 07/06/2018 CONCHA ARMENTA MD, Ot I44. 0 ATRIOVENTRICULAR BLOCK, FIRST DEGREE 07/06/2018 CONCHA ARMENTA MD Ot I95. 89 OTHER HYPOTENSION 07/06/2018 CONCHA ARMENTA MD, Ot N28. 9 DISORDER OF KIDNEY AND URETER, UNSPECIFI 07/06/2018 CONCHA ARMENTA MD Ot R09. 89 OTH SYMPTOMS AND SIGNS INVOLVING THE CIR 07/06/2018 CONCHA ARMENTA MD, Ot R19. 7 DIARRHEA, UNSPECIFIED 07/06/2018 CONCHA ARMENTA MD, Ot Z28. 9 IMMUNIZATION NOT CARRIED OUT FOR UNSPECI 07/06/2018 CONCHA ARMENTA MD Ot Z66 DO NOT RESUSCITATE 07/06/2018 CONCHA ARMENTA MD, Ot Z79. 01 [facility] (CURRENT) USE OF ANTICOAGULANT 07/06/2018 CONCHA ARMENTA MD, Ot Z82. 49 FAMILY HX OF [place] HEART DIS AND OTH DI 07/06/2018 CONCHA ARMENTA MD, Ot Z85. 51 PERSONAL HISTORY OF MALIGNANT NEOPLASM O 07/06/2018 CONCHA ARMENTA MD, Ot Z86.010 PERSONAL HISTORY OF COLONIC POLYPS 07/06/2018 CONCHA ARMENTA MD, Ot Z86.711 PERSONAL HISTORY OF PULMONARY EMBOLISM 07/06/2018 CONCHA ARMENTA MD, Ot Z86.718 PERSONAL HISTORY OF OTHER VENOUS THROMBO 07/06/2018 CONCHA ARMENTA MD, Ot Z87.891 PERSONAL HISTORY OF NICOTINE DEPENDENCE 07/06/2018 CONCHA ARMENTA MD Ot Z95. 5 PRESENCE OF CORONARY ANGIOPLASTY IMPLANT 07/06/2018 CONCHA ARMENTA MD Ot E03. 9 HYPOTHYROIDISM, UNSPECIFIED 07/06/2018 CONCHA ARMENTA MD Ot E11. 65 TYPE 2 DIABETES MELLITUS WITH HYPERGLYCE 07/06/2018 CONCHA ARMENTA MD Ot E78. 5 HYPERLIPIDEMIA, UNSPECIFIED 07/06/2018 CONCHA ARMENTA MD, Ot E86. 1 HYPOVOLEMIA 07/06/2018 CONCHA ARMENTA MD, Ot E87. 2 ACIDOSIS 07/06/2018 CONCHA ARMENTA MD Ot I10 ESSENTIAL (PRIMARY) HYPERTENSION 07/06/2018 CONCHA ARMENTA MD, Ot I21. 4 NON-ST ELEVATION (NSTEMI) MYOCARDIAL INF 07/06/2018 CONCHA ARMENTA MD, Ot I25. 10 ATHSCL HEART DISEASE OF [place] CORONARY 07/06/2018 CONCHA ARMENTA MD Ot I44. 0 ATRIOVENTRICULAR BLOCK, FIRST DEGREE 07/06/2018 CONCHA ARMENTA MD Ot I95. 89 OTHER HYPOTENSION 07/06/2018 CONCHA ARMENTA MD Ot N28. 9 DISORDER OF KIDNEY AND URETER, UNSPECIFI 07/06/2018 CONCHA ARMENTA MD Ot R09. 89 OTH SYMPTOMS AND SIGNS INVOLVING THE CIR 07/06/2018 CONCHA ARMENTA MD, Ot R19. 7 DIARRHEA, UNSPECIFIED 07/06/2018 CONCHA ARMENTA MD Ot Z28. 9 IMMUNIZATION NOT CARRIED OUT FOR UNSPECI 07/06/2018 CONCHA ARMENTA MD Ot Z66 DO NOT RESUSCITATE 07/06/2018 CONCHA ARMENTA MD Ot Z79. 01 [employer] (CURRENT) USE OF ANTICOAGULANT 07/06/2018 CONCHA ARMENTA MD Ot Z82. 49 FAMILY HX OF [place] HEART DIS AND OTH DI 07/06/2018 CONCHA ARMENTA MD, Ot Z85. 51 PERSONAL HISTORY OF MALIGNANT NEOPLASM O 07/06/2018 CONCHA ARMENTA MD, Ot Z86.010 PERSONAL HISTORY OF COLONIC POLYPS 07/06/2018 CONCHA ARMENTA MD, Ot Z86.711 PERSONAL HISTORY OF PULMONARY EMBOLISM 07/06/2018 CONCHA ARMENTA MD, Ot Z86.718 PERSONAL HISTORY OF OTHER VENOUS THROMBO 07/06/2018 CONCHA ARMENTA MD, Ot Z87.891 PERSONAL HISTORY OF NICOTINE DEPENDENCE 07/06/2018 CONCHA ARMENTA MD Ot Z95. 5 PRESENCE OF CORONARY ANGIOPLASTY IMPLANT 07/07/2018 CONCHA ARMENTA MD Ot E03. 9 HYPOTHYROIDISM, UNSPECIFIED 07/07/2018 CONCHA ARMENTA MD Ot E11. 65 TYPE 2 DIABETES MELLITUS WITH HYPERGLYCE 07/07/2018 CONCHA ARMENTA MD, Ot E78. 5 HYPERLIPIDEMIA, UNSPECIFIED 07/07/2018 CONCHA ARMENTA MD, Ot E86. 1 HYPOVOLEMIA 07/07/2018 CONCHA ARMENTA MD Ot E87. 2 ACIDOSIS 07/07/2018 CONCHA ARMENTA MD Ot I10 ESSENTIAL (PRIMARY) HYPERTENSION 07/07/2018 CONCHA ARMENTA MD, Ot I21. 4 NON-ST ELEVATION (NSTEMI) MYOCARDIAL INF 07/07/2018 CONCHA ARMENTA MD, Ot I25. 10 ATHSCL HEART DISEASE OF [place] CORONARY 07/07/2018 CONCHA ARMENTA MD Ot I44. 0 ATRIOVENTRICULAR BLOCK, FIRST DEGREE 07/07/2018 CONCHA ARMENTA MD Ot I95. 89 OTHER HYPOTENSION 07/07/2018 CONCHA ARMENTA MD Ot N28. 9 DISORDER OF KIDNEY AND URETER, UNSPECIFI 07/07/2018 CONCHA ARMENTA MD Ot R09. 89 OTH SYMPTOMS AND SIGNS INVOLVING THE CIR 07/07/2018 CONCHA ARMENTA MD, Ot R19. 7 DIARRHEA, UNSPECIFIED 07/07/2018 CONCHA ARMENTA MD Ot Z28. 9 IMMUNIZATION NOT CARRIED OUT FOR UNSPECI 07/07/2018 CONCHA ARMENTA MD Ot Z66 DO NOT RESUSCITATE 07/07/2018 CONCHA ARMENTA MD, Ot Z79. 01 [facility] (CURRENT) USE OF ANTICOAGULANT 07/07/2018 CONCHA ARMENTA MD, Ot Z82. 49 FAMILY HX OF [place] HEART DIS AND OTH DI 07/07/2018 CONCHA ARMENTA MD, Ot Z85. 51 PERSONAL HISTORY OF MALIGNANT NEOPLASM O 07/07/2018 CONCHA ARMENTA MD Ot Z86.010 PERSONAL HISTORY OF COLONIC POLYPS 07/07/2018 CONCHA ARMENTA MD Ot Z86.711 PERSONAL HISTORY OF PULMONARY EMBOLISM 07/07/2018 CONCHA ARMENTA MD, Ot Z86.718 PERSONAL HISTORY OF OTHER VENOUS THROMBO 07/07/2018 CONCHA ARMENTA MD Ot Z87.891 PERSONAL HISTORY OF NICOTINE DEPENDENCE 07/07/2018 CONCHA ARMENTA MD Ot Z95. 5 PRESENCE OF CORONARY ANGIOPLASTY IMPLANT 07/07/2018 CONCHA ARMENTA MD Ot E03. 9 HYPOTHYROIDISM, UNSPECIFIED 07/07/2018 CONCHA ARMENTA MD Ot E11. 65 TYPE 2 DIABETES MELLITUS WITH HYPERGLYCE 07/07/2018 CONCHA ARMENTA MD Ot E78. 5 HYPERLIPIDEMIA, UNSPECIFIED 07/07/2018 CONCHA ARMENTA MD Ot E86. 1 HYPOVOLEMIA 07/07/2018 CONCHA ARMENTA MD Ot E87. 2 ACIDOSIS 07/07/2018 OCNCHA ARMENTA MD Ot I10 ESSENTIAL (PRIMARY) HYPERTENSION 07/07/2018 CONCHA ARMENTA MD Ot I21. 4 NON-ST ELEVATION (NSTEMI) MYOCARDIAL INF 07/07/2018 CONCHA ARMENTA MD Ot I25. 10 ATHSCL HEART DISEASE OF [place] CORONARY 07/07/2018 CONCHA ARMENTA MD Ot I44. 0 ATRIOVENTRICULAR BLOCK, FIRST DEGREE 07/07/2018 CONCHA ARMENTA MD Ot I95. 89 OTHER HYPOTENSION 07/07/2018 CONCHA ARMENTA MD Ot N28. 9 DISORDER OF KIDNEY AND URETER, UNSPECIFI 07/07/2018 CONCHA ARMENTA MD Ot R09. 89 OTH SYMPTOMS AND SIGNS INVOLVING THE CIR 07/07/2018 CONCHA ARMENTA MD Ot R19. 7 DIARRHEA, UNSPECIFIED 07/07/2018 CONCHA ARMENTA MD Ot T82.855A STENOSIS OF CORONARY ARTERY STENT, INITI 07/07/2018 CONCHA ARMENTA MD Ot Z28. 9 IMMUNIZATION NOT CARRIED OUT FOR UNSPECI 07/07/2018 CONCHA ARMENTA MD Ot Z66 DO NOT RESUSCITATE 07/07/2018 CONCHA ARMENTA MD, Ot Z79. 01 [facility] (CURRENT) USE OF ANTICOAGULANT 07/07/2018 CONCHA ARMENTA MD, Ot Z82. 49 FAMILY HX OF [place] HEART DIS AND OTH DI 07/07/2018 CONCHA ARMENTA MD, Ot Z85. 51 PERSONAL HISTORY OF MALIGNANT NEOPLASM O 07/07/2018 CONCHA ARMENTA MD, Ot Z86.010 PERSONAL HISTORY OF COLONIC POLYPS 07/07/2018 CONCHA ARMENTA MD, Ot Z86.711 PERSONAL HISTORY OF PULMONARY EMBOLISM 07/07/2018 CONCHA ARMENTA MD, Ot Z86.718 PERSONAL HISTORY OF OTHER VENOUS THROMBO 07/07/2018 CONCHA ARMENTA MD, Ot Z87.891 PERSONAL HISTORY OF NICOTINE DEPENDENCE 07/07/2018 CONCHA ARMENTA MD, Ot Z95. 5 PRESENCE OF CORONARY ANGIOPLASTY IMPLANT 07/27/2018 LEONARDO GARRIDO DO Ot D50.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 07/27/2018 LIANA GARRIDO DOI Ot E03.9 HYPOTHYROIDISM, UNSPECIFIED 07/27/2018 HEMA PERAZA LEONARDO Ot E11.9 TYPE 2 DIABETES MELLITUS WITHOUT COMPLIC 07/27/2018 LIANA GARRIDO DOI Ot E78.5 HYPERLIPIDEMIA, UNSPECIFIED 07/27/2018 HEMA PERAZA LEONARDO Ot E86.1 HYPOVOLEMIA 07/27/2018 HEMA PERAZA LEONARDO Ot I25.10 ATHSCL HEART DISEASE OF [place] CORONARY 07/27/2018 LIANA GARRIDO DOI Ot I25.2 OLD MYOCARDIAL INFARCTION 07/27/2018 LIANA GARRIDO DOI Ot I95.1 ORTHOSTATIC HYPOTENSION 07/27/2018 HEMA PERAZA LEONARDO Ot K92.2 GASTROINTESTINAL HEMORRHAGE, UNSPECIFIED 07/27/2018 HEMA PERAZA LEONARDO Ot L40.9 PSORIASIS, UNSPECIFIED 07/27/2018 HEMA PERAZA LEONARDO Ot R09.89 OTH SYMPTOMS AND SIGNS INVOLVING THE CIR 07/27/2018 HEMA PERAZA LEONARDO Ot R55 SYNCOPE AND COLLAPSE 07/27/2018 LIANA GARRIDO DOI Ot T46.7X 5A ADVERSE EFFECT OF PERIPHERAL VASODILATOR 07/27/2018 LEONARDO GARRIDO DO Ot Z79.01 [employer] (CURRENT) USE OF ANTICOAGULANT 07/27/2018 LEONARDO GARRIDO DO Ot Z79.02 [employer] (CURRENT) USE OF ANTITHROMBOTI 07/27/2018 LEONARDO GARRIDO DO Ot Z79.82 [facility] (CURRENT) 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 07/27/2018 LEONARDO GARRIDO DO Ot Z82.49 FAMILY HX OF [place] HEART DIS AND OTH DI 07/27/2018 LEONARDO GARRIDO DO Ot Z85.51 PERSONAL HISTORY OF MALIGNANT NEOPLASM O 07/27/2018 LEONARDO GARRIDO DO Ot Z86.01 0 PERSONAL HISTORY OF COLONIC POLYPS 07/27/2018 LEONARDO GARRIDO DO Ot Z86.71 1 PERSONAL HISTORY OF PULMONARY EMBOLISM 07/27/2018 LEONARDO GARRIDO DO Ot Z86.71 8 PERSONAL HISTORY OF OTHER VENOUS THROMBO 07/27/2018 LEONARDO GARRIDO DO Ot Z87.89 1 PERSONAL HISTORY OF NICOTINE DEPENDENCE 07/27/2018 LEONARDO GARRIDO DO Ot Z95.5 PRESENCE OF CORONARY ANGIOPLASTY IMPLANT 07/27/2018 LEONARDO GARRIDO DO Ot D50.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 07/27/2018 LEONARDO GARRIDO DO Ot E03.9 HYPOTHYROIDISM, UNSPECIFIED 07/27/2018 LIANA GARRIDO DOI Ot E11.9 TYPE 2 DIABETES MELLITUS WITHOUT COMPLIC 07/27/2018 LEONARDO GARRIDO DO Ot E78.5 HYPERLIPIDEMIA, UNSPECIFIED 07/27/2018 LIANA GARRIDO DOI Ot E86.1 HYPOVOLEMIA 07/27/2018 LEONARDO GARRIDO DO Ot I25.10 ATHSCL HEART DISEASE OF [place] CORONARY 07/27/2018 LEONARDO GARRIDO DO Ot I25.2 OLD MYOCARDIAL INFARCTION 07/27/2018 LEONARDO GARRIDO DO Ot I95.1 ORTHOSTATIC HYPOTENSION 07/27/2018 LEONARDO GARRIDO DO Ot K92.2 GASTROINTESTINAL HEMORRHAGE, UNSPECIFIED 07/27/2018 LEONARDO GARRIDO DO Ot L40.9 PSORIASIS, UNSPECIFIED 07/27/2018 LEONARDO GARRIDO DO Ot R09.89 OTH SYMPTOMS AND SIGNS INVOLVING THE CIR 07/27/2018 LEONARDO GARRIDO DO Ot R55 SYNCOPE AND COLLAPSE 07/27/2018 LEONARDO GARRIDO DO Ot T46.7X 5A ADVERSE EFFECT OF PERIPHERAL VASODILATOR 07/27/2018 LEONARDO GARRIDO DO Ot Z79.01 [facility] (CURRENT) USE OF ANTICOAGULANT 07/27/2018 LEONARDO GARRIDO DO Ot Z79.02 [facility] (CURRENT) USE OF ANTITHROMBOTI 07/27/2018 LEONARDO GARRIDO DO Ot Z79.82 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 07/27/2018 LEONARDO GARRIDO DO Ot Z82.49 FAMILY HX OF [place] HEART DIS AND OTH DI 07/27/2018 LEONARDO GARRIDO DO Ot Z85.51 PERSONAL HISTORY OF MALIGNANT NEOPLASM O 07/27/2018 LEONARDO GARRIDO DO Ot Z86.01 0 PERSONAL HISTORY OF COLONIC POLYPS 07/27/2018 LIANA GARRIDO DOI Ot Z86.71 1 PERSONAL HISTORY OF PULMONARY EMBOLISM 07/27/2018 LEONARDO GARRIDO DO Ot Z86.71 8 PERSONAL HISTORY OF OTHER VENOUS THROMBO 07/27/2018 LIANA GARRIDO DOI Ot Z87.89 1 PERSONAL HISTORY OF NICOTINE DEPENDENCE 07/27/2018 LIANA GARRIDO DOI Ot Z95.5 PRESENCE OF CORONARY ANGIOPLASTY IMPLANT 07/28/2018 LEONARDO GARRIDO DO Ot D50.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 07/28/2018 HEMA PERAZA LEONARDO Ot E03.9 HYPOTHYROIDISM, UNSPECIFIED 07/28/2018 HEMA PERAZA LEONARDO Ot E11.9 TYPE 2 DIABETES MELLITUS WITHOUT COMPLIC 07/28/2018 HEMA PERAZA LEONARDO Ot E78.5 HYPERLIPIDEMIA, UNSPECIFIED 07/28/2018 HEMA PERAZA LEONARDO Ot E86.1 HYPOVOLEMIA 07/28/2018 HEMA PERAZA LEONARDO Ot I25.10 ATHSCL HEART DISEASE OF [place] CORONARY 07/28/2018 LIANA GARRIDO DOI Ot I25.2 OLD MYOCARDIAL INFARCTION 07/28/2018 HEMA PERAZA LEONARDO Ot I95.1 ORTHOSTATIC HYPOTENSION 07/28/2018 HEMA PERAZA LEONARDO Ot K92.2 GASTROINTESTINAL HEMORRHAGE, UNSPECIFIED 07/28/2018 LIANA GARRIDO DOI Ot L40.9 PSORIASIS, UNSPECIFIED 07/28/2018 HEMA PERAZA LEONARDO Ot R09.89 OTH SYMPTOMS AND SIGNS INVOLVING THE CIR 07/28/2018 LIANA GARRIDO DOI Ot R55 SYNCOPE AND COLLAPSE 07/28/2018 LEONARDO GARRIDO DO Ot T46.7X 5A ADVERSE EFFECT OF PERIPHERAL VASODILATOR 07/28/2018 LEONARDO GARRIDO DO Ot Z79.01 [facility] (CURRENT) USE OF ANTICOAGULANT 07/28/2018 LEONARDO GARRIDO DO Ot Z79.02 [facility] (CURRENT) USE OF ANTITHROMBOTI 07/28/2018 LEONARDO GARRIDO DO Ot Z79.82 [facility] (CURRENT) 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 07/28/2018 LEONARDO GARRIDO DO Ot Z82.49 FAMILY HX OF [place]HE[place] HEART DIS AND OTH DI 07/28/2018 LEONARDO GARRIDO DO Ot Z85.51 PERSONAL HISTORY OF MALIGNANT NEOPLASM O 07/28/2018 LIANA GARRIDO DOI Ot Z86.01 0 PERSONAL HISTORY OF COLONIC POLYPS 07/28/2018 LIANA GARRIDO DOI Ot Z86.71 1 PERSONAL HISTORY OF PULMONARY EMBOLISM 07/28/2018 LIANA GARRIDO DOI Ot Z86.71 8 PERSONAL HISTORY OF OTHER VENOUS THROMBO 07/28/2018 LIANA GARRIDO DOI Ot Z87.89 1 PERSONAL HISTORY OF NICOTINE DEPENDENCE 07/28/2018 HEMA PERAZA LEOANRDO Ot Z95.5 PRESENCE OF CORONARY ANGIOPLASTY IMPLANT 07/28/2018 LIANA GARRIDO DOI Ot D50.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 07/28/2018 HEMA PERAZA LEONARDO Ot E03.9 HYPOTHYROIDISM, UNSPECIFIED 07/28/2018 HEMA PERAZA LEONARDO Ot E11.9 TYPE 2 DIABETES MELLITUS WITHOUT COMPLIC 07/28/2018 LIANA GARRIDO DOI Ot E78.5 HYPERLIPIDEMIA, UNSPECIFIED 07/28/2018 HEMA PERAZA LEONARDO Ot E83.42 HYPOMAGNESEMIA 07/28/2018 HEMA PERAZA LEONARDO Ot E86.1 HYPOVOLEMIA 07/28/2018 LIANA GARRIDO DOI Ot I25.10 ATHSCL HEART DISEASE OF [place] CORONARY 07/28/2018 HEMA PERAZA LEONARDO Ot I25.2 OLD MYOCARDIAL INFARCTION 07/28/2018 HEMA PERAZA LEONARDO Ot I95.1 ORTHOSTATIC HYPOTENSION 07/28/2018 LIANA GARRIDO DOI Ot K92.2 GASTROINTESTINAL HEMORRHAGE, UNSPECIFIED 07/28/2018 HEMA PERAZA LEONARDO Ot L40.9 PSORIASIS, UNSPECIFIED 07/28/2018 HEMA PERAZA LEONARDO Ot 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, UNSPECIFIED 07/28/2018 LIANA GARRIDO DOI Ot R09.89 OTH SYMPTOMS AND SIGNS INVOLVING THE CIR 07/28/2018 LEONARDO GARRIDO DO Ot R55 SYNCOPE AND COLLAPSE 07/28/2018 LEONARDO GARRIDO DO Ot T46.7X 5A ADVERSE EFFECT OF PERIPHERAL VASODILATOR 07/28/2018 LEONARDO GARRIDO DO Ot Z79.01 [facility] (CURRENT) USE OF ANTICOAGULANT 07/28/2018 LEONARDO GARRIDO DO Ot Z79.02 [facility] (CURRENT) USE OF ANTITHROMBOTI 07/28/2018 LEONARDO GARRIDO DO Ot Z79.82 [facility] (CURRENT) 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 07/28/2018 LEONARDO GARRIDO DO Ot 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 07/28/2018 LEONARDO GARRIDO DO Ot Z82.49 FAMILY HX OF ISCHEM HEART DIS AND OTH DI 07/28/2018 LEONARDO GARRIDO DO Ot Z85.51 PERSONAL HISTORY OF MALIGNANT NEOPLASM O 07/28/2018 LEONARDO GARRIDO DO Ot Z86.01 0 PERSONAL HISTORY OF COLONIC POLYPS 07/28/2018 LEONARDO GARRIDO DO Ot Z86.71 1 PERSONAL HISTORY OF PULMONARY EMBOLISM 07/28/2018 LEONARDO GARRIDO DO Ot Z86.71 8 PERSONAL HISTORY OF OTHER VENOUS THROMBO 07/28/2018 LEONARDO GARRIDO DO Ot Z87.89 1 PERSONAL HISTORY OF NICOTINE DEPENDENCE 07/28/2018 LEONARDO GARRIDO DO Ot Z95.5 PRESENCE OF CORONARY ANGIOPLASTY IMPLANT 07/28/2018 LEONARDO GARRIDO DO Ot D50.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 07/28/2018 LEONARDO GARRIDO DO Ot E03.9 HYPOTHYROIDISM, UNSPECIFIED 07/28/2018 LEONARDO GARRIDO DO Ot E11.9 TYPE 2 DIABETES MELLITUS WITHOUT COMPLIC 07/28/2018 LEONARDO GARRIDO DO Ot E78.5 HYPERLIPIDEMIA, UNSPECIFIED 07/28/2018 LIANA GARRIDO DOI Ot E86.1 HYPOVOLEMIA 07/28/2018 LEONARDO GARRIDO DO Ot I25.10 ATHSCL HEART DISEASE OF [place] CORONARY 07/28/2018 LEONARDO GARRIDO DO Ot I25.2 OLD MYOCARDIAL INFARCTION 07/28/2018 LIANA GARRIDO DOI Ot I95.1 ORTHOSTATIC HYPOTENSION 07/28/2018 LIANA GARRIDO DOI Ot K92.2 GASTROINTESTINAL HEMORRHAGE, UNSPECIFIED 07/28/2018 LIANA GARRIDO DOI Ot L40.9 PSORIASIS, UNSPECIFIED 07/28/2018 LEONARDO GARRIDO DO Ot R09.89 OTH SYMPTOMS AND SIGNS INVOLVING THE CIR 07/28/2018 LEONARDO GARRIDO DO Ot R55 SYNCOPE AND COLLAPSE 07/28/2018 LEONARDO GARRIDO DO Ot T46.7X 5A ADVERSE EFFECT OF PERIPHERAL VASODILATOR 07/28/2018 LEONARDO GARRIDO DO Ot Z79.01 [facility] (CURRENT) USE OF ANTICOAGULANT 07/28/2018 LEONARDO GARRIDO DO Ot Z79.02 [employer] (CURRENT) USE OF ANTITHROMBOTI 07/28/2018 LEONARDO GARRIDO DO Ot Z79.82 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 07/28/2018 LEONARDO GARRIDO DO Ot Z82.49 FAMILY HX OF ISCHEM HEART DIS AND OTH DI 07/28/2018 LEONARDO GARRIDO DO Ot Z85.51 PERSONAL HISTORY OF MALIGNANT NEOPLASM O 07/28/2018 LEONARDO GARRIDO DO Ot Z86.01 0 PERSONAL HISTORY OF COLONIC POLYPS 07/28/2018 LEONARDO GARRIDO DO Ot Z86.71 1 PERSONAL HISTORY OF PULMONARY EMBOLISM 07/28/2018 LEONARDO GARRIDO DO Ot Z86.71 8 PERSONAL HISTORY OF OTHER VENOUS THROMBO 07/28/2018 LEONARDO GARRIDO DO Ot Z87.89 1 PERSONAL HISTORY OF NICOTINE DEPENDENCE 07/28/2018 LEONARDO GARRIDO DO Ot Z95.5 PRESENCE OF CORONARY ANGIOPLASTY IMPLANT 07/30/2018 LEONARDO GARRIDO DO Ot D50.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 07/30/2018 LIANA GARRIDO DOI Ot E03.9 HYPOTHYROIDISM, UNSPECIFIED 07/30/2018 LEONARDO GARRIDO DO Ot E11.9 TYPE 2 DIABETES MELLITUS WITHOUT COMPLIC 07/30/2018 LEONARDO GARRIDO DO Ot E78.5 HYPERLIPIDEMIA, UNSPECIFIED 07/30/2018 LIANA GARRIDO DOI Ot E86.1 HYPOVOLEMIA 07/30/2018 LEONARDO GARRIDO DO Ot I25.10 ATHSCL HEART DISEASE OF [place] CORONARY 07/30/2018 LEONARDO GARRIDO DO Ot I25.2 OLD MYOCARDIAL INFARCTION 07/30/2018 LEONARDO GARRIDO DO Ot I95.1 ORTHOSTATIC HYPOTENSION 07/30/2018 LEONARDO GARRIDO DO Ot K92.2 GASTROINTESTINAL HEMORRHAGE, UNSPECIFIED 07/30/2018 LIANA GARRIDO DOI Ot L40.9 PSORIASIS, UNSPECIFIED 07/30/2018 LEONARDO GARRIDO DO Ot R09.89 OTH SYMPTOMS AND SIGNS INVOLVING THE CIR 07/30/2018 LEONARDO GARRIDO DO Ot R55 SYNCOPE AND COLLAPSE 07/30/2018 LEONARDO GARRIDO DO Ot T46.7X 5A ADVERSE EFFECT OF PERIPHERAL VASODILATOR 07/30/2018 LEONARDO GARRIDO DO Ot Z79.01 [employer] (CURRENT) USE OF ANTICOAGULANT 07/30/2018 LEONARDO GARRIDO DO Ot Z79.02 [facility] (CURRENT) USE OF ANTITHROMBOTI 07/30/2018 LEONARDO GARRIDO DO Ot Z79.82 [facility] (CURRENT) 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 07/30/2018 LEONARDO GARRIDO DO Ot Z82.49 FAMILY HX OF ISCHE[place] HEART DIS AND OTH DI 07/30/2018 LEONARDO GARRIDO DO Ot Z85.51 PERSONAL HISTORY OF MALIGNANT NEOPLASM O 07/30/2018 LEONARDO GARRIDO DO Ot Z86.01 0 PERSONAL HISTORY OF COLONIC POLYPS 07/30/2018 LEONARDO GARRIDO DO Ot Z86.71 1 PERSONAL HISTORY OF PULMONARY EMBOLISM 07/30/2018 LEONARDO GARRIDO DO Ot Z86.71 8 PERSONAL HISTORY OF OTHER VENOUS THROMBO 07/30/2018 LEONARDO GARRIDO DO Ot Z87.89 1 PERSONAL HISTORY OF NICOTINE DEPENDENCE 07/30/2018 LEONARDO GARRIDO DO Ot Z95.5 PRESENCE OF CORONARY ANGIOPLASTY IMPLANT 07/30/2018 LEONARDO GARRIDO DO Ot D50.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 07/30/2018 LEONARDO GARRIDO DO Ot E03.9 HYPOTHYROIDISM, UNSPECIFIED 07/30/2018 LEONARDO GARRIDO DO Ot E11.9 TYPE 2 DIABETES MELLITUS WITHOUT COMPLIC 07/30/2018 LEONARDO GARRIDO DO Ot E78.5 HYPERLIPIDEMIA, UNSPECIFIED 07/30/2018 LIANA GARRIDO DOI Ot E86.1 HYPOVOLEMIA 07/30/2018 LEONARDO GARRIDO DO Ot I25.10 ATHSCL HEART DISEASE OF [place] CORONARY 07/30/2018 LEONARDO GARRIDO DO Ot I25.2 OLD MYOCARDIAL INFARCTION 07/30/2018 LEONADRO GARRIDO DO Ot I95.1 ORTHOSTATIC HYPOTENSION 07/30/2018 LEONARDO GARRIDO DO Ot K92.2 GASTROINTESTINAL HEMORRHAGE, UNSPECIFIED 07/30/2018 LEONARDO GARRIDO DO Ot L40.9 PSORIASIS, UNSPECIFIED 07/30/2018 LEONARDO GARRIDO DO Ot R09.89 OTH SYMPTOMS AND SIGNS INVOLVING THE CIR 07/30/2018 LEONARDO GARRIDO DO Ot R55 SYNCOPE AND COLLAPSE 07/30/2018 LEONARDO GARRIDO DO Ot T46.7X 5A ADVERSE EFFECT OF PERIPHERAL VASODILATOR 07/30/2018 LEONARDO GARRIDO DO Ot Z79.01 [employer] (CURRENT) USE OF ANTICOAGULANT 07/30/2018 LEONARDO GARRIDO DO Ot Z79.02 [employer] (CURRENT) USE OF ANTITHROMBOTI 07/30/2018 LEONARDO GARRIDO DO Ot Z79.82 [facility] (CURRENT) 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 07/30/2018 LEONARDO GARRIDO DO Ot Z82.49 FAMILY HX OF ISCHE[place] HEART DIS AND OTH DI 07/30/2018 LEONARDO GARRIDO DO Ot Z85.51 PERSONAL HISTORY OF MALIGNANT NEOPLASM O 07/30/2018 LEONARDO GARRIDO DO Ot Z86.01 0 PERSONAL HISTORY OF COLONIC POLYPS 07/30/2018 LEONARDO GARRIDO DO Ot Z86.71 1 PERSONAL HISTORY OF PULMONARY EMBOLISM 07/30/2018 LEONARDO GARRIDO DO Ot Z86.71 8 PERSONAL HISTORY OF OTHER VENOUS THROMBO 07/30/2018 LEONARDO GARRIDO DO Ot Z87.89 1 PERSONAL HISTORY OF NICOTINE DEPENDENCE 07/30/2018 LEONARDO GARRIDO DO Ot Z95.5 PRESENCE OF CORONARY ANGIOPLASTY IMPLANT 07/30/2018 LEONARDO GARRIDO DO Ot D50.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 07/30/2018 LEONARDO GARRIDO DO Ot E03.9 HYPOTHYROIDISM, UNSPECIFIED 07/30/2018 LEONARDO GARRIDO DO Ot E11.9 TYPE 2 DIABETES MELLITUS WITHOUT COMPLIC 07/30/2018 LEONARDO GARRIDO DO Ot E78.5 HYPERLIPIDEMIA, UNSPECIFIED 07/30/2018 LIANA GARRIDO DOI Ot E86.1 HYPOVOLEMIA 07/30/2018 LEONARDO GARRIDO DO Ot I25.10 ATHSCL HEART DISEASE OF [place] CORONARY 07/30/2018 LIANA GARRIDO DOI Ot I25.2 OLD MYOCARDIAL INFARCTION 07/30/2018 LEONARDO GARRIDO DO Ot I95.1 ORTHOSTATIC HYPOTENSION 07/30/2018 LEONARDO GARRIDO DO Ot K92.2 GASTROINTESTINAL HEMORRHAGE, UNSPECIFIED 07/30/2018 LEONARDO GARRIDO DO Ot L40.9 PSORIASIS, UNSPECIFIED 07/30/2018 LEONARDO GARRIDO DO Ot R09.89 OTH SYMPTOMS AND SIGNS INVOLVING THE CIR 07/30/2018 LEONARDO GARRIDO DO Ot R55 SYNCOPE AND COLLAPSE 07/30/2018 LEONARDO GARRIDO DO Ot T46.7X 5A ADVERSE EFFECT OF PERIPHERAL VASODILATOR 07/30/2018 LEONARDO GARRIDO DO Ot Z79.01 [facility] (CURRENT) USE OF ANTICOAGULANT 07/30/2018 LEONARDO GARRIDO DO Ot Z79.02 UNION LABORER (CURRENT) USE OF ANTITHROMBOTI 07/30/2018 LEONARDO GARRIDO DO Ot Z79.82 [facility] (CURRENT) 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 07/30/2018 LEONARDO GARRIDO DO Ot Z82.49 FAMILY HX OF ISCHEM HEART DIS AND OTH DI 07/30/2018 LEONARDO GARRIDO DO Ot Z85.51 PERSONAL HISTORY OF MALIGNANT NEOPLASM O 07/30/2018 LEONARDO GARRIDO DO Ot Z86.01 0 PERSONAL HISTORY OF COLONIC POLYPS 07/30/2018 LEONARDO GARRIDO DO Ot Z86.71 1 PERSONAL HISTORY OF PULMONARY EMBOLISM 07/30/2018 LEONARDO GARRIDO DO Ot Z86.71 8 PERSONAL HISTORY OF OTHER VENOUS THROMBO 07/30/2018 LEONARDO GARRIDO DO Ot Z87.89 1 PERSONAL HISTORY OF NICOTINE DEPENDENCE 07/30/2018 LEONARDO GARRIDO DO Ot Z95.5 PRESENCE OF CORONARY ANGIOPLASTY IMPLANT 08/29/2018 NAHOMY ORDOÑEZ MD, Ot D64.9 ANEMIA, UNSPECIFIED 08/29/2018 NAHOMY ORDOÑEZ MD Ot E11.9 TYPE 2 DIABETES MELLITUS WITHOUT COMPLIC 08/29/2018 NAHOMY ORDOÑEZ MD Ot I10 ESSENTIAL (PRIMARY) HYPERTENSION 08/29/2018 NAHOMY ORDOÑEZ MD Ot I25.10 ATHSCL HEART DISEASE OF [place] CORONARY 08/29/2018 NAHOMY ORDOÑEZ MD Ot Z79.82 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 08/29/2018 NAHOMY ORDOÑEZ MD Ot 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 08/29/2018 NAHOMY ORDOÑEZ MD Ot Z79.899 OTHER [facility] (CURRENT) DRUG THERAPY 08/29/2018 NAHOMY ORDOÑEZ MD Ot Z85.51 PERSONAL HISTORY OF MALIGNANT NEOPLASM O 09/05/2018 TAIGO MD, COREA Ot D64.9 ANEMIA, UNSPECIFIED 09/05/2018 NAHOMY ORDOÑEZ MD Ot E11.9 TYPE 2 DIABETES MELLITUS WITHOUT COMPLIC 09/05/2018 NAHOMY ORDOÑEZ MD Ot I10 ESSENTIAL (PRIMARY) HYPERTENSION 09/05/2018 NAHOMY ORDOÑEZ MD Ot I25.10 ATHSCL HEART DISEASE OF [place] CORONARY 09/05/2018 NAHOMY ORDOÑEZ MD Ot Z79.82 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 09/05/2018 NAHOMY ORDOÑEZ MD Ot Z79.84 [facility] (CURRENT) USE OF ORAL HYPOGLYC 09/05/2018 NAHOMY ORDOÑEZ MD Ot Z79.899 OTHER UNION LABORER (CURRENT) DRUG THERAPY 09/05/2018 NAHOMY ORDOÑEZ MD Ot Z85.51 PERSONAL HISTORY OF MALIGNANT NEOPLASM O 09/06/2018 SRIKANTH AGUILAR DO Ot Z01.818 ENCOUNTER FOR OTHER PREPROCEDURAL EXAMIN 09/11/2018 SRIKANTH AGUILAR DO Ot Z01.818 ENCOUNTER FOR OTHER PREPROCEDURAL EXAMIN 09/11/2018 NAHOMY ORDOÑEZ MD, Ot D64.9 ANEMIA, UNSPECIFIED 09/11/2018 NAHOMY ORDOÑEZ MD Ot E11.9 TYPE 2 DIABETES MELLITUS WITHOUT COMPLIC 09/11/2018 NAHOMY ORDOÑEZ MD Ot I10 ESSENTIAL (PRIMARY) HYPERTENSION 09/11/2018 NAHOMY ORDOÑEZ MD Ot I25.10 ATHSCL HEART DISEASE OF [place] CORONARY 09/11/2018 NAHOMY ORDOÑEZ MD Ot Z79.82 [facility] (CURRENT) 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 09/11/2018 NAHOMY ORDOÑEZ MD Ot 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 09/11/2018 NAHOMY ORDOÑEZ MD Ot Z79.899 OTHER [facility] (CURRENT) DRUG THERAPY 09/11/2018 NAHOMY ORDOÑEZ MD Ot Z85.51 PERSONAL HISTORY OF MALIGNANT NEOPLASM O 09/11/2018 SRIKANTH AGUILAR DO Ot D50. 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 10 ATHSCL HEART DISEASE OF [place] CORONARY 09/11/2018 SRIKANTH AGUILAR DO Ot K63. 5 POLYP OF COLON 09/11/2018 SRIKANTH AGUILAR DO Ot Z79. 02 [facility] (CURRENT) USE OF ANTITHROMBOTI 09/11/2018 SRIKANTH AGUILAR DO Ot Z79. 82 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 09/11/2018 SRIKANTH AGUILAR DO Ot Z79. 84 UNION LABORER (CURRENT) USE OF ORAL HYPOGLYC 09/11/2018 SRIKANTH AGUILAR DO, Ot Z79.899 OTHER [facility] (CURRENT) DRUG THERAPY 09/11/2018 SRIKANTH AGUILAR DO Ot Z86.010 PERSONAL HISTORY OF COLONIC POLYPS 09/11/2018 SRIKANTH AGUILAR DO Ot Z87.891 PERSONAL HISTORY OF NICOTINE DEPENDENCE 09/11/2018 SRIKANTH AGUILAR DO Ot Z95. 5 PRESENCE OF CORONARY ANGIOPLASTY IMPLANT 09/19/2018 SRIKANTH AGUILAR DO Ot D50. 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 10 ATHSCL HEART DISEASE OF [place] CORONARY 09/19/2018 SRIKANTH AGUILAR DO Ot K63. 5 POLYP OF COLON 09/19/2018 SRIKANTH AGUILAR DO Ot Z79. 02 UNION LABORER (CURRENT) USE OF ANTITHROMBOTI 09/19/2018 SRIKANTH AGUILAR DO Ot Z79. 82 [facility] (CURRENT) 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 09/19/2018 SRIKANTH AGUILAR DO Ot Z79. 84 UNION LABORER (CURRENT) USE OF ORAL HYPOGLYC 09/19/2018 SRIKANTH AGUILAR DO Ot Z79.899 OTHER UNION LABORER (CURRENT) DRUG THERAPY 09/19/2018 SRIKANTH AGUILAR DO Ot Z86.010 PERSONAL HISTORY OF COLONIC POLYPS 09/19/2018 SRIKANTH AGUILAR DO Ot Z87.891 PERSONAL HISTORY OF NICOTINE DEPENDENCE 09/19/2018 SRIKANTH AGUILAR DO Ot Z95. 5 PRESENCE OF CORONARY ANGIOPLASTY IMPLANT 09/26/2018 SRIKANTH AGUILAR DO Ot C18. 9 MALIGNANT NEOPLASM OF COLON, UNSPECIFIED 10/04/2018 SRIKANTH AGUILAR DO Ot Z01.818 ENCOUNTER FOR OTHER PREPROCEDURAL EXAMIN 10/05/2018 SRIKANTH AGUILAR DO Ot Z01.818 ENCOUNTER FOR OTHER PREPROCEDURAL EXAMIN 10/05/2018 LUCA TOLLIVER APRN Ot D64 .9 ANEMIA, UNSPECIFIED 10/05/2018 LUCA TOLLIVER APRN Ot E03 .9 HYPOTHYROIDISM, UNSPECIFIED 10/05/2018 LUCA TOLLIVER APRN Ot E11 .9 TYPE 2 DIABETES MELLITUS WITHOUT COMPLIC 10/05/2018 LUCA TOLLIVER APRN Ot E78.00 PURE HYPERCHOLESTEROLEMIA, UNSPECIFIED 10/05/2018 LUCA TOLLIVER APRN Ot I10 ESSENTIAL (PRIMARY) HYPERTENSION 10/05/2018 LUCA TOLLIVER APRN Ot I25.10 ATHSCL HEART DISEASE OF [place] CORONARY 10/05/2018 LUCA TOLLIVER APRN Ot R53 .1 WEAKNESS 10/05/2018 LUCA TOLLIVER APRN Ot Z79.02 [facility] (CURRENT) USE OF ANTITHROMBOTI 10/05/2018 LUCA TOLLIVER APRN Ot Z79 .4 [facility] (CURRENT) USE OF INSULIN 10/05/2018 LUCA TOLLIVER APRN Ot Z79.51 [facility] (CURRENT) USE OF INHALED STERO 10/05/2018 LUCA TOLLIVER APRN Ot Z79.82 [facility] (CURRENT) 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 10/05/2018 LUCA TOLLIVER APRN Ot Z82.49 FAMILY HX OF ISCHEM HEART DIS AND OTH DI 10/05/2018 LUCA TOLLIVER APRN Ot Z85.038 PERSONAL HISTORY OF MALIGNANT NEOPLASM O 10/05/2018 LUCA TOLLIVER APRN Ot Z85.51 PERSONAL HISTORY OF MALIGNANT NEOPLASM O 10/05/2018 LUCA TOLLIVER APRN Ot Z86.711 PERSONAL HISTORY OF PULMONARY EMBOLISM 10/05/2018 LUCA TOLLIVER APRN Ot Z86.718 PERSONAL HISTORY OF OTHER VENOUS THROMBO 10/05/2018 LUCA TOLLIVER APRN Ot Z87.891 PERSONAL HISTORY OF NICOTINE DEPENDENCE 10/05/2018 LUCA TOLLIVER APRN Ot Z92.21 PERSONAL HISTORY OF ANTINEOPLASTIC CHEMO 10/05/2018 LUCA TOLLIVER APRN Ot Z95 .5 PRESENCE OF CORONARY ANGIOPLASTY IMPLANT 10/05/2018 LUCA TOLLIVER APRN Ot Z98.890 OTHER SPECIFIED POSTPROCEDURAL STATES 10/05/2018 LUCA TOLLIVER APRN Ot D64 .9 ANEMIA, UNSPECIFIED 10/08/2018 LUCA TOLLIVER APRN Ot D64 .9 ANEMIA, UNSPECIFIED 10/08/2018 LUCA TOLLIVER APRN Ot E03 .9 HYPOTHYROIDISM, UNSPECIFIED 10/08/2018 LUCA TOLLIVER APRN Ot E11 .9 TYPE 2 DIABETES MELLITUS WITHOUT COMPLIC 10/08/2018 LUCA TOLLIVER APRN Ot E78.00 PURE HYPERCHOLESTEROLEMIA, UNSPECIFIED 10/08/2018 LUCA TOLLIVER APRN Ot I10 ESSENTIAL (PRIMARY) HYPERTENSION 10/08/2018 LUCA TOLLIVER APRN Ot I25.10 ATHSCL HEART DISEASE OF [place] CORONARY 10/08/2018 LUCA TOLLIVER APRN Ot R53 .1 WEAKNESS 10/08/2018 LUCA TOLLIVER APRN Ot Z79.02 [facility] (CURRENT) USE OF ANTITHROMBOTI 10/08/2018 LUCA TOLLIVER APRN Ot Z79 .4 [facility] (CURRENT) USE OF INSULIN 10/08/2018 LUCA TOLLIVER APRN Ot Z79.51 [facility] (CURRENT) USE OF INHALED STERO 10/08/2018 LUCA TOLLIVER APRN Ot Z79.82 [facility] (CURRENT) 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 10/08/2018 LUCA TOLLIVER APRN Ot Z82.49 FAMILY HX OF ISCHEM HEART DIS AND OTH DI 10/08/2018 LUCA TOLLIVER APRN Ot Z85.038 PERSONAL HISTORY OF MALIGNANT NEOPLASM O 10/08/2018 LUCA TOLLIVER APRN Ot Z85.51 PERSONAL HISTORY OF MALIGNANT NEOPLASM O 10/08/2018 LUCA TOLLIVER APRN Ot Z86.711 PERSONAL HISTORY OF PULMONARY EMBOLISM 10/08/2018 LUCA TOLLIVER APRN Ot Z86.718 PERSONAL HISTORY OF OTHER VENOUS THROMBO 10/08/2018 LUCA TOLLIVER APRN Ot Z87.891 PERSONAL HISTORY OF NICOTINE DEPENDENCE 10/08/2018 LUCA TOLLIVER APRN Ot Z92.21 PERSONAL HISTORY OF ANTINEOPLASTIC CHEMO 10/08/2018 LUCA TOLLIVER APRN Ot Z95 .5 PRESENCE OF CORONARY ANGIOPLASTY IMPLANT 10/08/2018 LUCA TOLLIVER APRN Ot Z98.890 OTHER SPECIFIED POSTPROCEDURAL STATES 10/09/2018 LUCA TOLLIVER APRN Ot D64 .9 ANEMIA, UNSPECIFIED 10/10/2018 SRIKANTH AGUILAR DO Ot Z01.818 ENCOUNTER FOR OTHER PREPROCEDURAL EXAMIN 10/12/2018 SRIKANTH AGUILAR DO Ot C18. 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 10/14/2018 HEMA DO LEONARDO Ot E03.9 HYPOTHYROIDISM, UNSPECIFIED 10/14/2018 GARRIDO DO, LEONARDO Ot E11.9 TYPE 2 DIABETES MELLITUS WITHOUT COMPLIC 10/14/2018 HEMA DO LEONARDO Ot E78.00 PURE HYPERCHOLESTEROLEMIA, UNSPECIFIED 10/14/2018 GARRIDO DO LEONARDO Ot E86.0 DEHYDRATION 10/14/2018 GARRIDO DO LEONARDO Ot E86.1 HYPOVOLEMIA 10/14/2018 HEMA DO LEONARDO Ot E87.1 HYPO-OSMOLALITY AND HYPONATREMIA 10/14/2018 HEMA DO LEONARDO Ot I10 ESSENTIAL (PRIMARY) HYPERTENSION 10/14/2018 HEMA DO LEONARDO Ot I25.10 ATHSCL HEART DISEASE OF [place] CORONARY 10/14/2018 HEMA PERZAA LEONARDO Ot I25.2 OLD MYOCARDIAL INFARCTION 10/14/2018 HEMA PERAZA LEONARDO Ot I95.1 ORTHOSTATIC HYPOTENSION 10/14/2018 EHMA DO LEONARDO Ot K56.7 ILEUS, UNSPECIFIED 10/14/2018 HEMA PERAZA LEONARDO Ot N28.9 DISORDER OF KIDNEY AND URETER, UNSPECIFI 10/14/2018 HEMA PERAZA LEONARDO Ot 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, UNSPECIFIED 10/14/2018 HEMA PERAZA LEONARDO Ot R33.9 RETENTION OF URINE, UNSPECIFIED 10/14/2018 HEMA PERAZA LEONARDO Ot R79.89 OTHER SPECIFIED ABNORMAL FINDINGS OF BLO 10/14/2018 HEMA DO LEONARDO Ot T46.7X 5A ADVERSE EFFECT OF PERIPHERAL VASODILATOR 10/14/2018 HEMA DO LEONARDO Ot Z82.49 FAMILY HX OF ISCHEM HEART DIS AND OTH DI 10/14/2018 HEMA PERAZA LEONARDO Ot Z85.51 PERSONAL HISTORY OF MALIGNANT NEOPLASM O 10/14/2018 LEONARDO GARRIDO DO Ot Z86.71 1 PERSONAL HISTORY OF PULMONARY EMBOLISM 10/14/2018 LEONARDO GARRIDO DO Ot Z86.71 8 PERSONAL HISTORY OF OTHER VENOUS THROMBO 10/14/2018 LEONARDO GARRIDO DO Ot Z87.89 1 PERSONAL HISTORY OF NICOTINE DEPENDENCE 10/14/2018 LEONARDO GARRIDO DO Ot Z95.5 PRESENCE OF CORONARY ANGIOPLASTY IMPLANT 11/09/2018 NAHOMY ORDOÑEZ MD Ot D64.9 ANEMIA, UNSPECIFIED 11/09/2018 NAHOMY ORDOÑEZ MD Ot E11.9 TYPE 2 DIABETES MELLITUS WITHOUT COMPLIC 11/09/2018 NAHOMY ORDOÑEZ MD Ot I10 ESSENTIAL (PRIMARY) HYPERTENSION 11/09/2018 NAHOMY ORDOÑEZ MD Ot I25.10 ATHSCL HEART DISEASE OF [place] CORONARY 11/09/2018 NAHOMY ORDOÑEZ MD Ot Z79.82 [facility] (CURRENT) 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 11/09/2018 NAHOMY ORDOÑEZ MD Ot 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 11/09/2018 NAHOMY ORDOÑEZ MD Ot Z79.899 OTHER UNION LABORER (CURRENT) DRUG THERAPY 11/09/2018 NAHOMY ORDOÑEZ MD Ot Z85.51 PERSONAL HISTORY OF MALIGNANT NEOPLASM O 11/09/2018 NAHOMY ORDOÑEZ MD Ot D64.9 ANEMIA, UNSPECIFIED 11/09/2018 NAHOMY ORDOÑEZ MD Ot E11.9 TYPE 2 DIABETES MELLITUS WITHOUT COMPLIC 11/09/2018 NAHOMY ORDOÑEZ MD Ot I10 ESSENTIAL (PRIMARY) HYPERTENSION 11/09/2018 NAHOMY ORDOÑEZ MD Ot I25.10 ATHSCL HEART DISEASE OF [place] CORONARY 11/09/2018 NAHOMY ORDOÑEZ MD Ot Z79.82 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 11/09/2018 NAHOMY ORDOÑEZ MD Ot Z79.84 [facility] (CURRENT) USE OF ORAL HYPOGLYC 11/09/2018 NAHOMY ORDOÑEZ MD Ot Z79.899 OTHER [facility] (CURRENT) DRUG THERAPY 11/09/2018 NAHOMY ORDOÑEZ MD Ot Z85.51 PERSONAL HISTORY OF MALIGNANT NEOPLASM O 11/13/2018 NAHOMY ORDOÑEZ MD Ot D64.9 ANEMIA, UNSPECIFIED 11/13/2018 NAHOMY ORDOÑEZ MD Ot E11.9 TYPE 2 DIABETES MELLITUS WITHOUT COMPLIC 11/13/2018 NAHOMY ORDOÑEZ MD Ot I10 ESSENTIAL (PRIMARY) HYPERTENSION 11/13/2018 NAHOMY ORDOÑEZ MD Ot I25.10 ATHSCL HEART DISEASE OF [place] CORONARY 11/13/2018 NAHOMY ORDOÑEZ MD Ot Z79.82 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 11/13/2018 NAHOMY ORDOÑEZ MD Ot 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 11/13/2018 NAHOMY ORDOÑEZ MD Ot Z79.899 OTHER UNION LABORER (CURRENT) DRUG THERAPY 11/13/2018 NAHOMY ORDOÑEZ MD Ot Z85.51 PERSONAL HISTORY OF MALIGNANT NEOPLASM O 11/15/2018 SRIKANTH AGUILAR DO Ot Z01.818 ENCOUNTER FOR OTHER PREPROCEDURAL EXAMIN 11/15/2018 SRIKANTH AGUILAR DO Ot Z01.818 ENCOUNTER FOR OTHER PREPROCEDURAL EXAMIN 11/15/2018 SRIKANTH AGUILAR DO Ot Z01.818 ENCOUNTER FOR OTHER PREPROCEDURAL EXAMIN 11/15/2018 NAHOMY ORDOÑEZ MD Ot D64.9 ANEMIA, UNSPECIFIED 11/15/2018 NAHOMY ORDOÑEZ MD Ot E11.9 TYPE 2 DIABETES MELLITUS WITHOUT COMPLIC 11/15/2018 NAHOMY ORDOÑEZ MD Ot I10 ESSENTIAL (PRIMARY) HYPERTENSION 11/15/2018 NAHOMY ORDOÑEZ MD, Ot I25.10 ATHSCL HEART DISEASE OF [place] CORONARY 11/15/2018 NAHOMY ORDOÑEZ MD Ot Z79.82 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 11/15/2018 NAHOMY ORDOÑEZ MD Ot Z79.84 [facility] (CURRENT) USE OF ORAL HYPOGLYC 11/15/2018 NAHOMY ORDOÑEZ MD Ot Z79.899 OTHER UNION LABORER (CURRENT) DRUG THERAPY 11/15/2018 NAHOMY ORDOÑEZ MD Ot Z85.51 PERSONAL HISTORY OF MALIGNANT NEOPLASM O 11/16/2018 SRIKANTH AGUILAR DO Ot C18. 2 MALIGNANT NEOPLASM OF ASCENDING COLON 11/16/2018 SRIKANTH AGUILAR DO Ot E11. 9 TYPE 2 DIABETES MELLITUS WITHOUT COMPLIC 11/16/2018 SRIKANTH AGUILAR DO Ot I10 ESSENTIAL (PRIMARY) HYPERTENSION 11/16/2018 SRIKANTH AGUILAR DO Ot I25. 10 ATHSCL HEART DISEASE OF [place] CORONARY 11/16/2018 SRIKANTH AGUILAR DO Ot I44. 30 UNSPECIFIED ATRIOVENTRICULAR BLOCK 11/16/2018 SRIKANTH AGUILAR DO Ot I65. 23 OCCLUSION AND STENOSIS OF BILATERAL [place] 11/16/2018 SRIKANTH AGUILAR DO Ot K21. 9 GASTRO-ESOPHAGEAL REFLUX DISEASE WITHOUT 11/16/2018 AGUILAR SRIKANTH PERAZA Ot Z79. 02 [facility] (CURRENT) USE OF ANTITHROMBOTI 11/16/2018 AGUILAR DO SRIKANTH D Ot Z79. 82 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 11/16/2018 AGUILAR DO SRIKANTH Jennifer Ot Z79. 84 [facility] (CURRENT) USE OF ORAL HYPOGLYC 11/16/2018 AGUILAR DO SRIKANTH Jennifer Ot Z79.899 OTHER [facility] (CURRENT) DRUG THERAPY 11/16/2018 AGUILAR DO SRIKANTH Jennifer Ot Z85. 51 PERSONAL HISTORY OF MALIGNANT NEOPLASM O 11/16/2018 AGUILAR DOSRIKANTH Ot Z86.711 PERSONAL HISTORY OF PULMONARY EMBOLISM 11/16/2018 [facility] SRIKANTH Jennifer Ot Z87.891 PERSONAL HISTORY OF NICOTINE DEPENDENCE 11/16/2018 [facility] SRIKANTH Jennifer Ot Z95. 5 PRESENCE OF CORONARY ANGIOPLASTY IMPLANT 11/16/2018 NAHOMY ORDOÑEZ MD Ot D64.9 ANEMIA, UNSPECIFIED 11/16/2018 NAHOMY ORDOÑEZ MD Ot E11.9 TYPE 2 DIABETES MELLITUS WITHOUT COMPLIC 11/16/2018 NAHOMY ORDOÑEZ MD Ot I10 ESSENTIAL (PRIMARY) HYPERTENSION 11/16/2018 NAHOMY ORDOÑEZ MD Ot I25.10 ATHSCL HEART DISEASE OF [place] CORONARY 11/16/2018 NAHOMY ORDOÑEZ MD Ot Z79.82 [facility] (CURRENT) 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 11/16/2018 NAHOMY ORDOÑEZ MD Ot 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 11/16/2018 NAHOMY ORDOÑEZ MD Ot Z79.899 OTHER UNION LABORER (CURRENT) DRUG THERAPY 11/16/2018 NAHOMY ORDOÑEZ MD Ot Z85.51 PERSONAL HISTORY OF MALIGNANT NEOPLASM O 11/19/2018 SRIKANTH AGUILAR DO Ot C18. 9 MALIGNANT NEOPLASM OF COLON, UNSPECIFIED 11/19/2018 NAHOMY ORDOÑEZ MD Ot D64.9 ANEMIA, UNSPECIFIED 11/19/2018 NAHOMY ORDOÑEZ MD Ot E11.9 TYPE 2 DIABETES MELLITUS WITHOUT COMPLIC 11/19/2018 NAHOMY ORDOÑEZ MD Ot I10 ESSENTIAL (PRIMARY) HYPERTENSION 11/19/2018 NAHOMY ORDOÑEZ MD Ot I25.10 ATHSCL HEART DISEASE OF [place] CORONARY 11/19/2018 NAHOMY ORDOÑEZ MD Ot Z79.82 [facility] (CURRENT) 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 11/19/2018 NAHOMY ORDOÑEZ MD Ot 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 11/19/2018 NAHOMY ORDOÑEZ MD Ot Z79.899 OTHER [facility] (CURRENT) DRUG THERAPY 11/19/2018 NAHOMY ORDOÑEZ MD Ot Z85.51 PERSONAL HISTORY OF MALIGNANT NEOPLASM O 11/21/2018 NAHOMY ORDOÑEZ MD Ot D64.9 ANEMIA, UNSPECIFIED 11/21/2018 NAHOMY ORDOÑEZ MD Ot E11.9 TYPE 2 DIABETES MELLITUS WITHOUT COMPLIC 11/21/2018 NAHOMY ORDOÑEZ MD Ot I10 ESSENTIAL (PRIMARY) HYPERTENSION 11/21/2018 NAHOMY ORDOÑEZ MD Ot I25.10 ATHSCL HEART DISEASE OF [place] CORONARY 11/21/2018 NAHOMY ORDOÑEZ MD Ot Z79.82 [facility] (CURRENT) 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 11/21/2018 NAHOMY ORDOÑEZ MD Ot Z79.84 [facility] (CURRENT) USE OF ORAL HYPOGLYC 11/21/2018 NAHOMY ORDOÑEZ MD Ot Z79.899 OTHER [facility] (CURRENT) DRUG THERAPY 11/21/2018 NAHOMY ORDOÑEZ MD Ot Z85.51 PERSONAL HISTORY OF MALIGNANT NEOPLASM O 11/21/2018 NAHOMY ORDOÑEZ MD Ot D64.9 ANEMIA, UNSPECIFIED 11/21/2018 NAHOMY ORDOÑEZ MD Ot E11.9 TYPE 2 DIABETES MELLITUS WITHOUT COMPLIC 11/21/2018 NAHOMY ORDOÑEZ MD Ot I10 ESSENTIAL (PRIMARY) HYPERTENSION 11/21/2018 NAHOMY ORDOÑEZ MD Ot I25.10 ATHSCL HEART DISEASE OF [place] CORONARY 11/21/2018 NAHOMY ORDOÑEZ MD Ot Z79.82 [facility] (CURRENT) 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 11/21/2018 NAHOMY ORDOÑEZ MD Ot 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 11/21/2018 NAHOMY ORDOÑEZ MD Ot Z79.899 OTHER UNION LABORER (CURRENT) DRUG THERAPY 11/21/2018 NAHOMY ORDOÑEZ MD Ot Z85.51 PERSONAL HISTORY OF MALIGNANT NEOPLASM O 11/22/2018 NAHOMY ORDOÑEZ MD Ot D64.9 ANEMIA, UNSPECIFIED 11/22/2018 NAHOMY ORDOÑEZ MD Ot E11.9 TYPE 2 DIABETES MELLITUS WITHOUT COMPLIC 11/22/2018 NAHOMY ORDOÑEZ MD Ot I10 ESSENTIAL (PRIMARY) HYPERTENSION 11/22/2018 NAHOMY ORDOÑEZ MD Ot I25.10 ATHSCL HEART DISEASE OF [place] CORONARY 11/22/2018 NAHOMY ORDOÑEZ MD Ot Z79.82 [facility] (CURRENT) 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 11/22/2018 NAHOMY ORDOÑEZ MD Ot Z79.84 [facility] (CURRENT) USE OF ORAL HYPOGLYC 11/22/2018 NAHOMY ORDOÑEZ MD Ot Z79.899 OTHER UNION LABORER (CURRENT) DRUG THERAPY 11/22/2018 NAHOMY ORDOÑEZ MD Ot Z85.51 PERSONAL HISTORY OF MALIGNANT NEOPLASM O 12/05/2018 NAHOMY ORDOÑEZ MD Ot C67.9 MALIGNANT NEOPLASM OF BLAD[place], UNSPECIFI 12/05/2018 NAHOMY ORDOÑEZ MD Ot C18.2 MALIGNANT NEOPLASM OF ASCENDING COLON 12/05/2018 NAHOMY ORDOÑEZ MD Ot C77.2 SECONDARY AND UNSP MALIGNANT NEOPLASM OF 12/05/2018 NAHOMY ORDOÑEZ MD Ot D64.9 ANEMIA, UNSPECIFIED 12/05/2018 NAHOMY ORDOÑEZ MD Ot E11.9 TYPE 2 DIABETES MELLITUS WITHOUT COMPLIC 12/05/2018 NAHOMY ORDOÑEZ MD Ot I10 ESSENTIAL (PRIMARY) HYPERTENSION 12/05/2018 NAHOMY ORDOÑEZ MD Ot I25.10 ATHSCL HEART DISEASE OF [place] CORONARY 12/05/2018 NAHOMY ORDOÑEZ MD Ot Z51.11 ENCOUNTER FOR ANTINEOPLASTIC CHEMOTHERAP 12/05/2018 NAHOMY ORDOÑEZ MD Ot Z79.82 [facility] (CURRENT) 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 12/05/2018 NAHOMY ORDOÑEZ MD Ot 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 12/05/2018 NAHOMY ORDOÑEZ MD Ot Z79.899 OTHER [facility] (CURRENT) DRUG THERAPY 12/05/2018 NAHOMY ORDOÑEZ MD Ot Z85.51 PERSONAL HISTORY OF MALIGNANT NEOPLASM O 12/05/2018 MARIAMA DIA MD Ot C18 .9 MALIGNANT NEOPLASM OF COLON, UNSPECIFIED 12/05/2018 MARIAMA DIA MD, Ot C77 .9 SECONDARY AND UNSP MALIGNANT NEOPLASM OF 12/05/2018 MARIAMA DIA MD Ot E11 .9 TYPE 2 DIABETES MELLITUS WITHOUT COMPLIC 12/05/2018 MARIAMA DIA MD Ot E78.00 PURE HYPERCHOLESTEROLEMIA, UNSPECIFIED 12/05/2018 MARIAMA DIA MD Ot E86 .1 HYPOVOLEMIA 12/05/2018 MARIAMA DIA MD Ot I10 ESSENTIAL (PRIMARY) HYPERTENSION 12/05/2018 MARIAMA DIA MD Ot I25.10 ATHSCL HEART DISEASE OF [place] CORONARY 12/05/2018 MARIAMA DIA MD Ot R11 .2 NAUSEA WITH VOMITING, UNSPECIFIED 12/05/2018 MARIAMA DIA MD Ot R19 .7 DIARRHEA, UNSPECIFIED 12/05/2018 MARIAMA DIA MD Ot Z79.82 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 12/05/2018 MARIAMA DIA MD Ot Z79.84 [facility] (CURRENT) USE OF ORAL HYPOGLYC 12/05/2018 MARIAMA DIA MD Ot Z79.899 OTHER [employer] [employer] (CURRENT) DRUG THERAPY 12/05/2018 MARIAMA DIA MD, Ot Z85.51 PERSONAL HISTORY OF MALIGNANT NEOPLASM O 12/05/2018 MARIAMA DIA MD, Ot Z86.711 PERSONAL HISTORY OF PULMONARY EMBOLISM 12/05/2018 MARIAMA DIA MD, Ot Z87.891 PERSONAL HISTORY OF NICOTINE DEPENDENCE 12/05/2018 MARIAMA DIA MD Ot Z95 .5 PRESENCE OF CORONARY ANGIOPLASTY IMPLANT 12/05/2018 MARIAMA DIA MD Ot C18 .9 MALIGNANT NEOPLASM OF COLON, UNSPECIFIED 12/05/2018 MARIAMA DIA MD Ot C77 .9 SECONDARY AND UNSP MALIGNANT NEOPLASM OF 12/05/2018 MARIAMA DIA MD Ot E11 .9 TYPE 2 DIABETES MELLITUS WITHOUT COMPLIC 12/05/2018 MARAIMA DIA MD Ot E78.00 PURE HYPERCHOLESTEROLEMIA, UNSPECIFIED 12/05/2018 MARIAMA DIA MD Ot E86 .1 HYPOVOLEMIA 12/05/2018 MARIAMA DIA MD Ot I10 ESSENTIAL (PRIMARY) HYPERTENSION 12/05/2018 MARIAMA DIA MD Ot I25.10 ATHSCL HEART DISEASE OF [place] CORONARY 12/05/2018 MARIAMA DIA MD Ot R11 .2 NAUSEA WITH VOMITING, UNSPECIFIED 12/05/2018 MARIAMA DIA MD Ot R19 .7 DIARRHEA, UNSPECIFIED 12/05/2018 MARIAMA DIA MD Ot Z79.82 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 12/05/2018 MARIAMA DIA MD Ot Z79.84 [facility] (CURRENT) USE OF ORAL HYPOGLYC 12/05/2018 MARIAMA DIA MD Ot Z79.899 OTHER [employer] (CURRENT) DRUG THERAPY 12/05/2018 MARIAMA DIA MD Ot Z85.51 PERSONAL HISTORY OF MALIGNANT NEOPLASM O 12/05/2018 MARIAMA DIA MD Ot Z86.711 PERSONAL HISTORY OF PULMONARY EMBOLISM 12/05/2018 MARIAMA DIA MD, Ot Z87.891 PERSONAL HISTORY OF NICOTINE DEPENDENCE 12/05/2018 MARIAMA DIA MD Ot Z95 .5 PRESENCE OF CORONARY ANGIOPLASTY IMPLANT 12/12/2018 MARIAMA DIA MD Ot A04.72 ENTEROCOLITIS D/T CLOSTRIDIUM DIFFICILE, 12/12/2018 MARIAMA DIA MD Ot C18 .9 MALIGNANT NEOPLASM OF COLON, UNSPECIFIED 12/12/2018 MARIAMA DIA MD Ot C77 .2 SECONDARY AND UNSP MALIGNANT NEOPLASM OF 12/12/2018 MARIAMA DIA MD Ot D61.810 ANTINEOPLASTIC CHEMOTHERAPY INDUCED PANC 12/12/2018 MARIAMA DIA MD Ot D72.819 DECREASED WHITE BLOOD CELL COUNT, UNSPEC 12/12/2018 MARIAMA DIA MD Ot D72.825 BANDEMIA 12/12/2018 MARIAMA DIA MD Ot E03 .9 HYPOTHYROIDISM, UNSPECIFIED 12/12/2018 MARIAMA DIA MD Ot E78.00 PURE HYPERCHOLESTEROLEMIA, UNSPECIFIED 12/12/2018 MARIAMA DIA MD Ot E83.42 HYPOMAGNESEMIA 12/12/2018 MARIAMA DIA MD Ot E86 .0 DEHYDRATION 12/12/2018 MARIAMA DIA MD Ot E86 .1 HYPOVOLEMIA 12/12/2018 MARIAMA DIA MD Ot E87 .1 HYPO-OSMOLALITY AND HYPONATREMIA 12/12/2018 MARIAMA DIA MD Ot E87 .6 HYPOKALEMIA 12/12/2018 MARIAMA DIA MD Ot I10 ESSENTIAL (PRIMARY) HYPERTENSION 12/12/2018 MARIAMA DIA MD Ot I21.A1 MYOCARDIAL INFARCTION TYPE 2 12/12/2018 MARIAMA DIA MD Ot I25.10 ATHSCL HEART DISEASE OF [place] CORONARY 12/12/2018 MARIAMA DIA MD Ot I95 .1 ORTHOSTATIC HYPOTENSION 12/12/2018 MARIAMA DIA MD Ot R55 SYNCOPE AND COLLAPSE 12/12/2018 MARIAMA DIA MD, Ot Z79.01 [facility] (CURRENT) USE OF ANTICOAGULANT 12/12/2018 MARIAMA DIA MD, Ot 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 12/12/2018 MARIAMA DIA MD, Ot Z79.899 OTHER [employer] (CURRENT) DRUG THERAPY 12/12/2018 MARIAMA DIA MD Ot Z82.49 FAMILY HX OF ISCHEM HEART DIS AND OTH DI 12/12/2018 MARIAMA DIA MD Ot Z85.51 PERSONAL HISTORY OF MALIGNANT NEOPLASM O 12/12/2018 MARIAMA DIA MD, Ot Z86.711 PERSONAL HISTORY OF PULMONARY EMBOLISM 12/12/2018 MARIAMA DIA MD, Ot Z86.718 PERSONAL HISTORY OF OTHER VENOUS THROMBO 12/12/2018 MARIAMA DIA MD, Ot Z87.891 PERSONAL HISTORY OF NICOTINE DEPENDENCE 12/12/2018 MARIAMA DIA MD Ot Z90.49 ACQUIRED ABSENCE OF OTHER SPECIFIED PART 12/12/2018 MARIAMA DIA MD Ot Z95 .5 PRESENCE OF CORONARY ANGIOPLASTY IMPLANT 12/12/2018 MARIAMA DIA MD Ot A04.72 ENTEROCOLITIS D/T CLOSTRIDIUM DIFFICILE, 12/12/2018 MARIAMA DIA MD Ot C18 .9 MALIGNANT NEOPLASM OF COLON, UNSPECIFIED 12/12/2018 MARIAMA DIA MD Ot C77 .2 SECONDARY AND UNSP MALIGNANT NEOPLASM OF 12/12/2018 MARIAMA DIA MD Ot D61.810 ANTINEOPLASTIC CHEMOTHERAPY INDUCED PANC 12/12/2018 MARIAMA DIA MD Ot D72.819 DECREASED WHITE BLOOD CELL COUNT, UNSPEC 12/12/2018 MARIAMA DIA MD Ot D72.825 BANDEMIA 12/12/2018 MARIAMA DIA MD Ot E03 .9 HYPOTHYROIDISM, UNSPECIFIED 12/12/2018 MARIAMA DIA MD Ot E78.00 PURE HYPERCHOLESTEROLEMIA, UNSPECIFIED 12/12/2018 MARIAMA DIA MD Ot E83.42 HYPOMAGNESEMIA 12/12/2018 MARIAMA DIA MD Ot E86 .0 DEHYDRATION 12/12/2018 MARIAMA DIA MD Ot E86 .1 HYPOVOLEMIA 12/12/2018 MARIAMA DIA MD Ot E87 .1 HYPO-OSMOLALITY AND HYPONATREMIA 12/12/2018 MARIAMA DIA MD Ot E87 .6 HYPOKALEMIA 12/12/2018 MARIAMA DIA MD Ot I10 ESSENTIAL (PRIMARY) HYPERTENSION 12/12/2018 MARIAMA DIA MD, Ot I21.A1 MYOCARDIAL INFARCTION TYPE 2 12/12/2018 MARIAMA DIA MD, Ot I25.10 ATHSCL HEART DISEASE OF [place] CORONARY 12/12/2018 MARIAMA DIA MD, Ot I95 .1 ORTHOSTATIC HYPOTENSION 12/12/2018 MARIAMA DIA MD Ot R55 SYNCOPE AND COLLAPSE 12/12/2018 MARIAMA DIA MD, Ot Z79.01 [facility]ION [employer]ER (CURRENT) USE OF ANTICOAGULANT 12/12/2018 MARIAMA DIA MD, Ot Z79.84 [facility] (CURRENT) USE OF ORAL HYPOGLYC 12/12/2018 MARIAMA DIA MD, Ot Z79.899 OTHER [facility] (CURRENT) DRUG THERAPY 12/12/2018 MARIAMA DIA MD Ot Z82.49 FAMILY HX OF ISCHEM HEART DIS AND OTH DI 12/12/2018 MARIAMA DIA MD Ot Z85.51 PERSONAL HISTORY OF MALIGNANT NEOPLASM O 12/12/2018 MARIAMA DIA MD, Ot Z86.711 PERSONAL HISTORY OF PULMONARY EMBOLISM 12/12/2018 MARIAMA DIA MD, Ot Z86.718 PERSONAL HISTORY OF OTHER VENOUS THROMBO 12/12/2018 MARIAMA DIA MD Ot Z87.891 PERSONAL HISTORY OF NICOTINE DEPENDENCE 12/12/2018 MARIAMA DIA MD Ot Z90.49 ACQUIRED ABSENCE OF OTHER SPECIFIED PART 12/12/2018 MARIAMA DIA MD Ot Z95 .5 PRESENCE OF CORONARY ANGIOPLASTY IMPLANT 12/12/2018 MARIAMA DIA MD Ot A04.72 ENTEROCOLITIS D/T CLOSTRIDIUM DIFFICILE, 12/12/2018 MARIAMA DIA MD Ot C18 .9 MALIGNANT NEOPLASM OF COLON, UNSPECIFIED 12/12/2018 MARIAMA DIA MD Ot C77 .2 SECONDARY AND UNSP MALIGNANT NEOPLASM OF 12/12/2018 MARIAMA DIA MD Ot D61.810 ANTINEOPLASTIC CHEMOTHERAPY INDUCED PANC 12/12/2018 MARIAMA DIA MD Ot D72.819 DECREASED WHITE BLOOD CELL COUNT, UNSPEC 12/12/2018 MARIAMA DIA MD Ot D72.825 BANDEMIA 12/12/2018 MARIAMA DIA MD Ot E03 .9 HYPOTHYROIDISM, UNSPECIFIED 12/12/2018 MARIAMA DIA MD Ot E78.00 PURE HYPERCHOLESTEROLEMIA, UNSPECIFIED 12/12/2018 MARIAMA DIA MD Ot E83.42 HYPOMAGNESEMIA 12/12/2018 MARIAMA DIA MD Ot E86 .0 DEHYDRATION 12/12/2018 MARIAMA DIA MD Ot E86 .1 HYPOVOLEMIA 12/12/2018 MARIAMA DIA MD Ot E87 .1 HYPO-OSMOLALITY AND HYPONATREMIA 12/12/2018 MARIAMA DIA MD Ot E87 .6 HYPOKALEMIA 12/12/2018 MARIAMA DIA MD Ot I10 ESSENTIAL (PRIMARY) HYPERTENSION 12/12/2018 MARIAMA DIA MD Ot I21.A1 MYOCARDIAL INFARCTION TYPE 2 12/12/2018 MARIAMA DIA MD Ot I25.10 ATHSCL HEART DISEASE OF [place] CORONARY 12/12/2018 MARIAMA DIA MD Ot I95 .1 ORTHOSTATIC HYPOTENSION 12/12/2018 MARIAMA DIA MD Ot R55 SYNCOPE AND COLLAPSE 12/12/2018 MARIAMA DIA MD Ot Z79.01 UNION LABORER (CURRENT) USE OF ANTICOAGULANT 12/12/2018 MARIAMA DIA MD Ot 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 12/12/2018 MARIAMA DIA MD Ot Z79.899 OTHER UNION [employer]ER (CURRENT) DRUG THERAPY 12/12/2018 MARIAMA DIA MD Ot Z82.49 FAMILY HX OF ISCHEM HEART DIS AND OTH DI 12/12/2018 MARIAMA DIA MD Ot Z85.51 PERSONAL HISTORY OF MALIGNANT NEOPLASM O 12/12/2018 MARIAMA DIA MD Ot Z86.711 PERSONAL HISTORY OF PULMONARY EMBOLISM 12/12/2018 MARIAMA DIA MD Ot Z86.718 PERSONAL HISTORY OF OTHER VENOUS THROMBO 12/12/2018 MARIAMA DIA MD Ot Z87.891 PERSONAL HISTORY OF NICOTINE DEPENDENCE 12/12/2018 MARIAMA DIA MD Ot Z90.49 ACQUIRED ABSENCE OF OTHER SPECIFIED PART 12/12/2018 MARIAMA DIA MD Ot Z95 .5 PRESENCE OF CORONARY ANGIOPLASTY IMPLANT 12/13/2018 MARIAMA DIA MD Ot A04.72 ENTEROCOLITIS D/T CLOSTRIDIUM DIFFICILE, 12/13/2018 MARIAMA DIA MD Ot C18 .9 MALIGNANT NEOPLASM OF COLON, UNSPECIFIED 12/13/2018 MARIAMA DIA MD Ot C77 .2 SECONDARY AND UNSP MALIGNANT NEOPLASM OF 12/13/2018 MARIAMA DIA MD Ot D61.810 ANTINEOPLASTIC CHEMOTHERAPY INDUCED PANC 12/13/2018 MARIAMA DIA MD Ot D72.819 DECREASED WHITE BLOOD CELL COUNT, UNSPEC 12/13/2018 MARIAMA DIA MD Ot D72.825 BANDEMIA 12/13/2018 MARIAMA DIA MD, Ot E03 .9 HYPOTHYROIDISM, UNSPECIFIED 12/13/2018 MARIAMA DIA MD Ot E78.00 PURE HYPERCHOLESTEROLEMIA, UNSPECIFIED 12/13/2018 MARIAMA DIA MD Ot E83.42 HYPOMAGNESEMIA 12/13/2018 MARIAMA DIA MD Ot E86 .0 DEHYDRATION 12/13/2018 MARIAMA DIA MD Ot E86 .1 HYPOVOLEMIA 12/13/2018 MARIAMA DIA MD Ot E87 .1 HYPO-OSMOLALITY AND HYPONATREMIA 12/13/2018 MARIAMA DIA MD Ot E87 .6 HYPOKALEMIA 12/13/2018 MARIAMA DIA MD Ot I10 ESSENTIAL (PRIMARY) HYPERTENSION 12/13/2018 MARIAMA DIA MD Ot I21.A1 MYOCARDIAL INFARCTION TYPE 2 12/13/2018 AMRIAMA DIA MD Ot I25.10 ATHSCL HEART DISEASE OF [place] CORONARY 12/13/2018 MARIAMA DIA MD Ot I95 .1 ORTHOSTATIC HYPOTENSION 12/13/2018 MARIAMA DIA MD Ot R55 SYNCOPE AND COLLAPSE 12/13/2018 MARIAMA DIA MD Ot Z79.01 UNION LABORER (CURRENT) USE OF ANTICOAGULANT 12/13/2018 MARIAMA DIA MD Ot Z79.84 [facility] (CURRENT) USE OF ORAL HYPOGLYC 12/13/2018 MARIAMA DIA MD Ot Z79.899 OTHER [facility] (CURRENT) DRUG THERAPY 12/13/2018 MARIAMA DIA MD Ot Z82.49 FAMILY HX OF [place]HE[place] HEART DIS AND OTH DI 12/13/2018 MARIAMA DIA MD Ot Z85.51 PERSONAL HISTORY OF MALIGNANT NEOPLASM O 12/13/2018 MARIAMA DIA MD Ot Z86.711 PERSONAL HISTORY OF PULMONARY EMBOLISM 12/13/2018 MARIAMA DIA MD Ot Z86.718 PERSONAL HISTORY OF OTHER VENOUS THROMBO 12/13/2018 MARIAMA DIA MD Ot Z87.891 PERSONAL HISTORY OF NICOTINE DEPENDENCE 12/13/2018 MARIAMA DIA MD Ot Z90.49 ACQUIRED ABSENCE OF OTHER SPECIFIED PART 12/13/2018 MARIAMA DIA MD Ot Z95 .5 PRESENCE OF CORONARY ANGIOPLASTY IMPLANT 12/13/2018 MARIAMA DIA MD Ot A04.72 ENTEROCOLITIS D/T CLOSTRIDIUM DIFFICILE, 12/13/2018 MARIAMA DIA MD Ot C18 .9 MALIGNANT NEOPLASM OF COLON, UNSPECIFIED 12/13/2018 MARIAMA DIA MD Ot C77 .2 SECONDARY AND UNSP MALIGNANT NEOPLASM OF 12/13/2018 MARIAMA DIA MD Ot D61.810 ANTINEOPLASTIC CHEMOTHERAPY INDUCED PANC 12/13/2018 MARIAMA DIA MD Ot D72.819 DECREASED WHITE BLOOD CELL COUNT, UNSPEC 12/13/2018 MARIAMA DIA MD Ot D72.825 BANDEMIA 12/13/2018 MARIAMA DIA MD Ot E03 .9 HYPOTHYROIDISM, UNSPECIFIED 12/13/2018 MARIAMA IDA MD Ot E11 .9 TYPE 2 DIABETES MELLITUS WITHOUT COMPLIC 12/13/2018 MARIAMA DIA MD Ot E78.00 PURE HYPERCHOLESTEROLEMIA, UNSPECIFIED 12/13/2018 MARIAMA DIA MD Ot E83.42 HYPOMAGNESEMIA 12/13/2018 MARIAMA DIA MD Ot E86 .0 DEHYDRATION 12/13/2018 MARIAMA DIA MD Ot E86 .1 HYPOVOLEMIA 12/13/2018 MARIAMA DIA MD Ot E87 .1 HYPO-OSMOLALITY AND HYPONATREMIA 12/13/2018 MARIAMA DIA MD Ot E87 .6 HYPOKALEMIA 12/13/2018 MARIAMA DIA MD Ot I10 ESSENTIAL (PRIMARY) HYPERTENSION 12/13/2018 MARIAMA DIA MD Ot I11 .0 HYPERTENSIVE HEART DISEASE WITH HEART FA 12/13/2018 MARIAMA DIA MD, Ot I21.A1 MYOCARDIAL INFARCTION TYPE 2 12/13/2018 MARIAMA DIA MD, Ot I25.10 ATHSCL HEART DISEASE OF [place] CORONARY 12/13/2018 MARIAMA DIA MD, Ot I25 .5 ISCHEMIC CARDIOMYOPATHY 12/13/2018 MARIAMA DIA MD, Ot I50.23 ACUTE ON CHRONIC SYSTOLIC (CONGESTIVE) H 12/13/2018 MARIAMA DIA MD Ot I95 .1 ORTHOSTATIC HYPOTENSION 12/13/2018 MARIAMA DIA MD, Ot R55 SYNCOPE AND COLLAPSE 12/13/2018 MARIAMA DIA MD, Ot T82.855A STENOSIS OF CORONARY ARTERY STENT, INITI 12/13/2018 MARIAMA DIA MD, Ot Z79.01 UNION LABORER (CURRENT) USE OF ANTICOAGULANT 12/13/2018 MARIAMA DIA MD Ot 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 12/13/2018 MARIAMA DIA MD, Ot Z79.899 OTHER UNION LAB[employer]ER (CURRENT) DRUG THERAPY 12/13/2018 MARIAMA DIA MD Ot Z82.49 FAMILY HX OF [place]HE[place] HEART DIS AND OTH DI 12/13/2018 MARIAMA DIA MD Ot Z85.51 PERSONAL HISTORY OF MALIGNANT NEOPLASM O 12/13/2018 MARIAMA DAI MD Ot Z86.711 PERSONAL HISTORY OF PULMONARY EMBOLISM 12/13/2018 MARIAMA DIA MD, Ot Z86.718 PERSONAL HISTORY OF OTHER VENOUS THROMBO 12/13/2018 MARIAMA DIA MD, Ot Z87.891 PERSONAL HISTORY OF NICOTINE DEPENDENCE 12/13/2018 MARIAMA DIA MD Ot Z90.49 ACQUIRED ABSENCE OF OTHER SPECIFIED PART 12/13/2018 MARIAMA DIA MD Ot Z95 .5 PRESENCE OF CORONARY ANGIOPLASTY IMPLANT 12/14/2018 MARIAMA DIA MD Ot A04.72 ENTEROCOLITIS D/T CLOSTRIDIUM DIFFICILE, 12/14/2018 MARIAMA DIA MD Ot C18 .9 MALIGNANT NEOPLASM OF COLON, UNSPECIFIED 12/14/2018 MARIAMA DIA MD Ot C77 .2 SECONDARY AND UNSP MALIGNANT NEOPLASM OF 12/14/2018 MARIAMA DIA MD Ot D61.810 ANTINEOPLASTIC CHEMOTHERAPY INDUCED PANC 12/14/2018 MARIAMA DIA MD Ot D72.819 DECREASED WHITE BLOOD CELL COUNT, UNSPEC 12/14/2018 MARIAMA DIA MD Ot D72.825 BANDEMIA 12/14/2018 MARIAMA DIA MD Ot E03 .9 HYPOTHYROIDISM, UNSPECIFIED 12/14/2018 MARIAMA DIA MD Ot E78.00 PURE HYPERCHOLESTEROLEMIA, UNSPECIFIED 12/14/2018 MARIAMA DIA MD Ot E83.42 HYPOMAGNESEMIA 12/14/2018 MARIAMA DIA MD Ot E86 .0 DEHYDRATION 12/14/2018 MARIAMA DIA MD Ot E86 .1 HYPOVOLEMIA 12/14/2018 MARIAMA DIA MD Ot E87 .1 HYPO-OSMOLALITY AND HYPONATREMIA 12/14/2018 MARIAMA DIA MD Ot E87 .6 HYPOKALEMIA 12/14/2018 MARIAMA DIA MD Ot I10 ESSENTIAL (PRIMARY) HYPERTENSION 12/14/2018 MARIAMA DIA MD Ot I21.A1 MYOCARDIAL INFARCTION TYPE 2 12/14/2018 MARIAMA DIA MD Ot I25.10 ATHSCL HEART DISEASE OF [place] CORONARY 12/14/2018 MARIAMA DIA MD Ot I95 .1 ORTHOSTATIC HYPOTENSION 12/14/2018 MARIAMA DIA MD Ot R55 SYNCOPE AND COLLAPSE 12/14/2018 MARIAMA DIA MD Ot Z79.01 [facility] (CURRENT) USE OF ANTICOAGULANT 12/14/2018 MARIAMA DIA MD Ot Z79.84 [facility] (CURRENT) USE OF ORAL HYPOGLYC 12/14/2018 MARIAMA DIA MD Ot Z79.899 OTHER [facility] (CURRENT) DRUG THERAPY 12/14/2018 MARIAMA DIA MD Ot Z82.49 FAMILY HX OF ISCHEM HEART DIS AND OTH DI 12/14/2018 MARIAMA DIA MD Ot Z85.51 PERSONAL HISTORY OF MALIGNANT NEOPLASM O 12/14/2018 MARIAMA DIA MD Ot Z86.711 PERSONAL HISTORY OF PULMONARY EMBOLISM 12/14/2018 MARIAMA DIA MD Ot Z86.718 PERSONAL HISTORY OF OTHER VENOUS THROMBO 12/14/2018 MARIAMA DIA MD Ot Z87.891 PERSONAL HISTORY OF NICOTINE DEPENDENCE 12/14/2018 MARIAMA DIA MD Ot Z90.49 ACQUIRED ABSENCE OF OTHER SPECIFIED PART 12/14/2018 MARIAMA DIA MD, Ot Z95 .5 PRESENCE OF CORONARY ANGIOPLASTY IMPLANT 12/14/2018 MARIAMA DIA MD, Ot A04.72 ENTEROCOLITIS D/T CLOSTRIDIUM DIFFICILE, 12/14/2018 MARIAMA DIA MD Ot C18 .9 MALIGNANT NEOPLASM OF COLON, UNSPECIFIED 12/14/2018 MARIAMA DIA MD, Ot C77 .2 SECONDARY AND UNSP MALIGNANT NEOPLASM OF 12/14/2018 MARIAMA DIA MD, Ot D61.810 ANTINEOPLASTIC CHEMOTHERAPY INDUCED PANC 12/14/2018 MARIAMA DIA MD, Ot D72.819 DECREASED WHITE BLOOD CELL COUNT, UNSPEC 12/14/2018 MARIAMA DIA MD, Ot D72.825 BANDEMIA 12/14/2018 MARIAMA DIA MD, Ot E03 .9 HYPOTHYROIDISM, UNSPECIFIED 12/14/2018 MARIAMA DIA MD Ot E78.00 PURE HYPERCHOLESTEROLEMIA, UNSPECIFIED 12/14/2018 MARIAMA DIA MD Ot E83.42 HYPOMAGNESEMIA 12/14/2018 MARIAMA DIA MD Ot E86 .0 DEHYDRATION 12/14/2018 MARIAMA DIA MD Ot E86 .1 HYPOVOLEMIA 12/14/2018 MARIAMA DIA MD Ot E87 .1 HYPO-OSMOLALITY AND HYPONATREMIA 12/14/2018 MARIAMA DIA MD Ot E87 .6 HYPOKALEMIA 12/14/2018 MARIAMA DIA MD Ot I10 ESSENTIAL (PRIMARY) HYPERTENSION 12/14/2018 MARIAMA DIA MD Ot I21.A1 MYOCARDIAL INFARCTION TYPE 2 12/14/2018 MARIAMA DIA MD Ot I25.10 ATHSCL HEART DISEASE OF [place] CORONARY 12/14/2018 MARIAMA DIA MD Ot I95 .1 ORTHOSTATIC HYPOTENSION 12/14/2018 MARIAMA DIA MD Ot R55 SYNCOPE AND COLLAPSE 12/14/2018 MARIAMA DIA MD, Ot Z79.01 UNION LABORER (CURRENT) USE OF ANTICOAGULANT 12/14/2018 MARIAMA DIA MD Ot Z79.84 [facility] (CURRENT) USE OF ORAL HYPOGLYC 12/14/2018 MARIAMA DIA MD Ot Z79.899 OTHER UNION LABORER (CURRENT) DRUG THERAPY 12/14/2018 MARIAMA DIA MD, Ot Z82.49 FAMILY HX OF ISCHEM HEART DIS AND OTH DI 12/14/2018 MARIAMA DIA MD, Ot Z85.51 PERSONAL HISTORY OF MALIGNANT NEOPLASM O 12/14/2018 MARIAMA DIA MD Ot Z86.711 PERSONAL HISTORY OF PULMONARY EMBOLISM 12/14/2018 MARIAMA DIA MD, Ot Z86.718 PERSONAL HISTORY OF OTHER VENOUS THROMBO 12/14/2018 MARIAMA DIA MD, Ot Z87.891 PERSONAL HISTORY OF NICOTINE DEPENDENCE 12/14/2018 MARIAMA DIA MD, Ot Z90.49 ACQUIRED ABSENCE OF OTHER SPECIFIED PART 12/14/2018 MARIAMA DIA MD, Ot Z95 .5 PRESENCE OF CORONARY ANGIOPLASTY IMPLANT 12/25/2018 NAHOMY ORDOÑEZ MD, Ot C67.9 MALIGNANT NEOPLASM OF BLADDER, UNSPECIFI 01/02/2019 NAHOMY ORDOÑEZ MD Ot C18.2 MALIGNANT NEOPLASM OF ASCENDING COLON 01/02/2019 NAHOMY ORDOÑEZ MD, Ot C77.2 SECONDARY AND UNSP MALIGNANT NEOPLASM OF 01/02/2019 NAHOMY ORDOÑEZ MD Ot D64.9 ANEMIA, UNSPECIFIED 01/02/2019 NAHOMY ORDOÑEZ MD Ot E11.9 TYPE 2 DIABETES MELLITUS WITHOUT COMPLIC 01/02/2019 NAHOMY ORDOÑEZ MD Ot I10 ESSENTIAL (PRIMARY) HYPERTENSION 01/02/2019 NAHOMY ORDOÑEZ MD, Ot I25.10 ATHSCL HEART DISEASE OF [place] CORONARY 01/02/2019 NAHOMY ORDOÑEZ MD Ot Z51.11 ENCOUNTER FOR ANTINEOPLASTIC CHEMOTHERAP 01/02/2019 NAHOMY ORDOÑEZ MD Ot Z79.82 [facility] (CURRENT) 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 01/02/2019 NAHOMY ORDOÑEZ MD Ot 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 01/02/2019 NAHOMY ORDOÑEZ MD Ot Z79.899 OTHER [facility] (CURRENT) DRUG THERAPY 01/02/2019 NAHOMY ORDOÑEZ MD Ot Z85.51 PERSONAL HISTORY OF MALIGNANT NEOPLASM O 01/16/2019 MYA ADAMS MD, Ot C18.9 MALIGNANT NEOPLASM OF COLON, UNSPECIFIED 01/16/2019 MYA ADAMS MD, Ot E11.9 TYPE 2 DIABETES MELLITUS WITHOUT COMPLIC 01/16/2019 MYA ADAMS MD Ot E78.00 PURE HYPERCHOLESTEROLEMIA, UNSPECIFIED 01/16/2019 MYA ADAMS MD Ot I10 ESSENTIAL (PRIMARY) HYPERTENSION 01/16/2019 MYA ADAMS MD, Ot I25.10 ATHSCL HEART DISEASE OF [place] CORONARY 01/16/2019 MYA ADAMS MD, Ot I95.9 HYPOTENSION, UNSPECIFIED 01/16/2019 MYA ADAMS MD Ot R10.84 GENERALIZED ABDOMINAL PAIN 01/16/2019 MYA ADAMS MD, Ot R11.2 NAUSEA WITH VOMITING, UNSPECIFIED 01/16/2019 MYA ADAMS MD, Ot R34 ANURIA AND OLIGURIA 01/16/2019 MYA ADAMS MD, Ot R55 SYNCOPE AND COLLAPSE 01/16/2019 MYA ADAMS MD, Ot Z79.02 [facility] (CURRENT) USE OF ANTITHROMBOTI 01/16/2019 MYA ADAMS MD, Ot Z79.82 [facility] (CURRENT) 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 01/16/2019 MYA ADAMS MD, Ot 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 01/16/2019 MYA ADAMS MD, Ot Z82.49 FAMILY HX OF ISCHEM HEART DIS AND OTH DI 01/16/2019 MYA ADAMS MD, Ot Z85.51 PERSONAL HISTORY OF MALIGNANT NEOPLASM O 01/16/2019 MYA ADAMS MD, Ot Z86.711 PERSONAL HISTORY OF PULMONARY EMBOLISM 01/16/2019 MYA ADAMS MD, Ot Z87.891 PERSONAL HISTORY OF NICOTINE DEPENDENCE 01/16/2019 MYA ADAMS MD, Ot Z95.5 PRESENCE OF CORONARY ANGIOPLASTY IMPLANT 01/24/2019 FANNY MORALES MD Ot C18.9 MALIGNANT NEOPLASM OF COLON, UNSPECIFIED 01/24/2019 FANNY MORALES MD, Ot D50.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 01/24/2019 FANNY MORALES MD, Ot E03.9 HYPOTHYROIDISM, UNSPECIFIED 01/24/2019 FANNY MORALES MD, Ot E11.9 TYPE 2 DIABETES MELLITUS WITHOUT COMPLIC 01/24/2019 GAULT MD, FANNY R Ot E78.5 HYPERLIPIDEMIA, UNSPECIFIED 01/24/2019 FANNY MORALES MD Ot E83.4 2 HYPOMAGNESEMIA 01/24/2019 FANNY MORALES MD Ot E86.9 VOLUME DEPLETION, UNSPECIFIED 01/24/2019 FANNY MORALES MD Ot E87.1 HYPO-OSMOLALITY AND HYPONATREMIA 01/24/2019 FANNY MORALES MD Ot E87.6 HYPOKALEMIA 01/24/2019 FANNY MORALES MD Ot I11.0 HYPERTENSIVE HEART DISEASE WITH HEART FA 01/24/2019 FANNY MORALES MD Ot I25.1 0 ATHSCL HEART DISEASE OF [place] CORONARY 01/24/2019 FANNY MORALES MD Ot I50.3 2 CHRONIC DIASTOLIC (CONGESTIVE) HEART OG 01/24/2019 FANNY MORALES MD Ot I95.1 ORTHOSTATIC HYPOTENSION 01/24/2019 FANNY MORALES MD Ot I95.2 HYPOTENSION DUE TO DRUGS 01/24/2019 FANNY MORALES MD Ot K29.7 0 GASTRITIS, UNSPECIFIED, WITHOUT BLEEDING 01/24/2019 FANNY MORALES MD Ot K31.9 DISEASE OF STOMACH AND DUODENUM, UNSPECI 01/24/2019 FANNY MORALES MD Ot K92.2 GASTROINTESTINAL HEMORRHAGE, UNSPECIFIED 01/24/2019 FANNY MORALES MD Ot L40.9 PSORIASIS, UNSPECIFIED 01/24/2019 FANNY MORALES MD Ot T82.855D STENOSIS OF CORONARY ARTERY STENT, SUBSE 01/24/2019 FANNY MORALES MD Ot Z82.4 9 FAMILY HX OF ISCHEM HEART DIS AND OTH DI 01/24/2019 FANNY MORALES MD Ot Z85.5 1 PERSONAL HISTORY OF MALIGNANT NEOPLASM O 01/24/2019 FANNY MORALES MD Ot Z86.7 11 PERSONAL HISTORY OF PULMONARY EMBOLISM 01/24/2019 FANNY MORALES MD Ot Z86.7 18 PERSONAL HISTORY OF OTHER VENOUS THROMBO 01/24/2019 FANNY MORALES MD Ot Z87.8 91 PERSONAL HISTORY OF NICOTINE DEPENDENCE 01/24/2019 FANNY MORALES MD Ot Z95.5 PRESENCE OF CORONARY ANGIOPLASTY IMPLANT 01/25/2019 ES SEQUEIRA, TAVON Joyner Ot Z48.812 ENCNTR FOR SURGICAL AFTCR FOLLOWING SURG 01/25/2019 ES SEQUEIRA, TAVON Joyner Ot Z95. 5 PRESENCE OF CORONARY ANGIOPLASTY IMPLANT 01/28/2019 NAHOMY ORDOÑEZ MD Ot C18.2 MALIGNANT NEOPLASM OF ASCENDING COLON 01/28/2019 NAHOMY ORDOÑEZ MD, Ot C77.2 SECONDARY AND UNSP MALIGNANT NEOPLASM OF 01/28/2019 NAHOMY ORDOÑEZ MD Ot D64.9 ANEMIA, UNSPECIFIED 01/28/2019 NAHOMY ORDOÑEZ MD Ot E11.9 TYPE 2 DIABETES MELLITUS WITHOUT COMPLIC 01/28/2019 NAHOMY ORDOÑEZ MD Ot I10 ESSENTIAL (PRIMARY) HYPERTENSION 01/28/2019 NAHOMY ORDOÑEZ MD Ot I25.10 ATHSCL HEART DISEASE OF [place] CORONARY 01/28/2019 NAHOMY ORDOÑEZ MD Ot Z51.11 ENCOUNTER FOR ANTINEOPLASTIC CHEMOTHERAP 01/28/2019 NAHOMY ORDOÑEZ MD Ot Z79.82 [facility] (CURRENT) 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 01/28/2019 NAHOMY ORDOÑEZ MD Ot 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 01/28/2019 NAHOMY ORDOÑEZ MD Ot Z79.899 OTHER [facility] (CURRENT) DRUG THERAPY 01/28/2019 NAHOMY ORDOÑEZ MD Ot Z85.51 PERSONAL HISTORY OF MALIGNANT NEOPLASM O 02/11/2019 ALICE TORRES MD Ot I65.23 OCCLUSION AND STENOSIS OF BILATERAL [place] 02/11/2019 ALICE TORRES MD Ot K11.23 CHRONIC SIALOADENITIS 02/12/2019 NAHOMY ORDOÑEZ MD, Ot C18.2 MALIGNANT NEOPLASM OF ASCENDING COLON 02/12/2019 NAHOMY ORDOÑEZ MD, Ot C77.2 SECONDARY AND UNSP MALIGNANT NEOPLASM OF 02/12/2019 NAHOMY ORDOÑEZ MD, Ot D64.9 ANEMIA, UNSPECIFIED 02/12/2019 NAHOMY ORDOÑEZ MD Ot E11.9 TYPE 2 DIABETES MELLITUS WITHOUT COMPLIC 02/12/2019 NAHOMY ORDOÑEZ MD Ot I10 ESSENTIAL (PRIMARY) HYPERTENSION 02/12/2019 NAHOMY ORDOÑEZ MD Ot I25.10 ATHSCL HEART DISEASE OF [place] CORONARY 02/12/2019 NAHOMY ORDOÑEZ MD Ot Z51.11 ENCOUNTER FOR ANTINEOPLASTIC CHEMOTHERAP 02/12/2019 NAHOMY ORDOÑEZ MD Ot Z79.82 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 02/12/2019 NAHOMY ORDOÑEZ MD Ot 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 02/12/2019 NAHOMY ORDOÑEZ MD Ot Z79.899 OTHER UNION LABORER (CURRENT) DRUG THERAPY 02/12/2019 TIAGO SEQUEIRA, NAHOMY Ot Z85.51 PERSONAL HISTORY OF MALIGNANT NEOPLASM O 02/12/2019 BILLY BOUCHER N Ot C18.2 MALIGNANT NEOPLASM OF ASCENDING COLON 02/12/2019 BILLY BOUCHER N Ot C77.2 SECONDARY AND UNSP MALIGNANT NEOPLASM OF 02/12/2019 BILLY BOUCHER N Ot D64.9 ANEMIA, UNSPECIFIED 02/12/2019 CITLALY PAMELALANDY N Ot E11.9 TYPE 2 DIABETES MELLITUS WITHOUT COMPLIC 02/12/2019 PAMELA BOUCHERAN N Ot I10 ESSENTIAL (PRIMARY) HYPERTENSION 02/12/2019 CITLALY PAMELAAN N Ot I25.10 ATHSCL HEART DISEASE OF [place] CORONARY 02/12/2019 CITLALY, BILLY N Ot Z51.11 ENCOUNTER FOR ANTINEOPLASTIC CHEMOTHERAP 02/12/2019 CITLALYBILLY LOPEZ N Ot Z79.82 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 02/12/2019 CITLALYBILLY N Ot Z79.84 [facility] (CURRENT) USE OF ORAL HYPOGLYC 02/12/2019 PAMELA BOUCHERAN N Ot Z79.899 OTHER UNION LABORER (CURRENT) DRUG THERAPY 02/12/2019 BILLY BOUCHER N Ot Z85.51 PERSONAL HISTORY OF MALIGNANT NEOPLASM O 02/14/2019 BILLY BOUCHER N Ot C18.2 MALIGNANT NEOPLASM OF ASCENDING COLON 02/14/2019 BILLY BOUCHER N Ot C77.2 SECONDARY AND UNSP MALIGNANT NEOPLASM OF 02/14/2019 BILLY BOUCHER N Ot D64.9 ANEMIA, UNSPECIFIED 02/14/2019 BILLY BOUCHER N Ot E11.9 TYPE 2 DIABETES MELLITUS WITHOUT COMPLIC 02/14/2019 CITLALY BILLY N Ot I10 ESSENTIAL (PRIMARY) HYPERTENSION 02/14/2019 CITLALY, PAMELAAN N Ot I25.10 ATHSCL HEART DISEASE OF [place] CORONARY 02/14/2019 CITLALYPAMELAAN N Ot Z51.11 ENCOUNTER FOR ANTINEOPLASTIC CHEMOTHERAP 02/14/2019 CITLALYPAMELAAN N Ot Z79.82 [facility] (CURRENT) 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 02/14/2019 CITLALY BOBAN N Ot 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 02/14/2019 CITLALY, BOBAN N Ot Z79.899 OTHER UNION LABORER (CURRENT) DRUG THERAPY 02/14/2019 BILLY BOUCHER Matthew Ot Z85.51 PERSONAL HISTORY OF MALIGNANT NEOPLASM O 02/14/2019 NAHOMY ORDOÑEZ MD Ot C18.2 MALIGNANT NEOPLASM OF ASCENDING COLON 02/14/2019 NAHOMY ORDOÑEZ MD Ot C77.2 SECONDARY AND UNSP MALIGNANT NEOPLASM OF 02/14/2019 NAHOMY ORDOÑEZ MD Ot D64.9 ANEMIA, UNSPECIFIED 02/14/2019 NAHOMY ORDOÑEZ MD Ot E11.9 TYPE 2 DIABETES MELLITUS WITHOUT COMPLIC 02/14/2019 NAHOMY ORDOÑEZ MD Ot I10 ESSENTIAL (PRIMARY) HYPERTENSION 02/14/2019 NAHOMY ORDOÑEZ MD Ot I25.10 ATHSCL HEART DISEASE OF [place] CORONARY 02/14/2019 NAHOMY ORDOÑEZ MD Ot Z51.11 ENCOUNTER FOR ANTINEOPLASTIC CHEMOTHERAP 02/14/2019 NAHOMY ORDOÑEZ MD Ot Z79.82 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 02/14/2019 NAHOMY ORDOÑEZ MD Ot Z79.84 [facility] (CURRENT) USE OF ORAL HYPOGLYC 02/14/2019 NAHOMY ORDOÑEZ MD Ot Z79.899 OTHER UNION LABORER (CURRENT) DRUG THERAPY 02/14/2019 NAHOMY ORDOÑEZ MD Ot Z85.51 PERSONAL HISTORY OF MALIGNANT NEOPLASM O 02/14/2019 NAHOMY ORDOÑEZ MD Ot C18.2 MALIGNANT NEOPLASM OF ASCENDING COLON 02/14/2019 NAHOMY ORDOÑEZ MD Ot C77.2 SECONDARY AND UNSP MALIGNANT NEOPLASM OF 02/14/2019 NAHOMY ORDOÑEZ MD Ot D64.9 ANEMIA, UNSPECIFIED 02/14/2019 NAHOMY ORDOÑEZ MD Ot E11.9 TYPE 2 DIABETES MELLITUS WITHOUT COMPLIC 02/14/2019 NAHOMY ORDOÑEZ MD Ot I10 ESSENTIAL (PRIMARY) HYPERTENSION 02/14/2019 NAHOMY ORDOÑEZ MD Ot I25.10 ATHSCL HEART DISEASE OF [place] CORONARY 02/14/2019 NAHOMY ORDOÑEZ MD Ot Z51.11 ENCOUNTER FOR ANTINEOPLASTIC CHEMOTHERAP 02/14/2019 NAHOMY ORDOÑEZ MD Ot Z79.82 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 02/14/2019 NAHOMY ORDOÑEZ MD Ot Z79.84 [facility] (CURRENT) USE OF ORAL HYPOGLYC 02/14/2019 NAHOMY ORDOÑEZ MD Ot Z79.899 OTHER UNION LABORER (CURRENT) DRUG THERAPY 02/14/2019 NAHOMY ORDOÑEZ MD Ot Z85.51 PERSONAL HISTORY OF MALIGNANT NEOPLASM O 02/25/2019 SHARON BRITT DO, Ot C18 .9 MALIGNANT NEOPLASM OF COLON, UNSPECIFIED 02/25/2019 SHARON BRITT DO, Ot C77 .9 SECONDARY AND UNSP MALIGNANT NEOPLASM OF 02/25/2019 SHARON BRITT DO, Ot 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 02/25/2019 SHARON BRITT DO Ot E11 .9 TYPE 2 DIABETES MELLITUS WITHOUT COMPLIC 02/25/2019 SHARON BRITT DO, Ot E78.00 PURE HYPERCHOLESTEROLEMIA, UNSPECIFIED 02/25/2019 SHARON BRITT DO, Ot E83.42 HYPOMAGNESEMIA 02/25/2019 SHARON BRITT DO Ot I10 ESSENTIAL (PRIMARY) HYPERTENSION 02/25/2019 SHARON BRITT DO, Ot I25.10 ATHSCL HEART DISEASE OF [place] CORONARY 02/25/2019 SHARON BRITT DO, Ot I95 .9 HYPOTENSION, UNSPECIFIED 02/25/2019 SHARON BRITT DO, Ot Z79.02 [facility] (CURRENT) USE OF ANTITHROMBOTI 02/25/2019 SHARON BRITT DO, Ot Z79.82 [facility] (CURRENT) 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 02/25/2019 SHARON BRITT DO, Ot 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 02/25/2019 SHARON BRITT DO, Ot Z80 .0 FAMILY HISTORY OF MALIGNANT NEOPLASM OF 02/25/2019 SHARON BRITT DO, Ot Z82.49 FAMILY HX OF ISCHEM HEART DIS AND OTH DI 02/25/2019 SHARON BRITT DO, Ot Z86.711 PERSONAL HISTORY OF PULMONARY EMBOLISM 02/25/2019 SHARON BRITT DO, Ot Z87.891 PERSONAL HISTORY OF NICOTINE DEPENDENCE 02/25/2019 SHARON BRITT DO, Ot Z95 .5 PRESENCE OF CORONARY ANGIOPLASTY IMPLANT 02/26/2019 NAHOMY ORDOÑEZ MD Ot C18.2 MALIGNANT NEOPLASM OF ASCENDING COLON 02/26/2019 NAHOMY ORDOÑEZ MD, Ot C77.2 SECONDARY AND UNSP MALIGNANT NEOPLASM OF 02/26/2019 NAHOMY ORDOÑEZ MD, Ot D64.9 ANEMIA, UNSPECIFIED 02/26/2019 NAHOMY ORDOÑEZ MD Ot E11.9 TYPE 2 DIABETES MELLITUS WITHOUT COMPLIC 02/26/2019 NAHOMY ORDOÑEZ MD Ot I10 ESSENTIAL (PRIMARY) HYPERTENSION 02/26/2019 NAHOMY ORDOÑEZ MD, Ot I25.10 ATHSCL HEART DISEASE OF [place] CORONARY 02/26/2019 NAHOMY ORDOÑEZ MD, Ot Z79.82 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 02/26/2019 NAHOMY ORDOÑEZ MD Ot Z79.84 [facility] (CURRENT) USE OF ORAL HYPOGLYC 02/26/2019 NAHOMY ORDOÑEZ MD, Ot Z79.899 OTHER UNION LABORER (CURRENT) DRUG THERAPY 02/26/2019 NAHOMY ORDOÑEZ MD, Ot Z85.51 PERSONAL HISTORY OF MALIGNANT NEOPLASM O 02/27/2019 SHARON BRITT DO, Ot C18 .9 MALIGNANT NEOPLASM OF COLON, UNSPECIFIED 02/27/2019 SHARON BRITT DO, Ot C77 .9 SECONDARY AND UNSP MALIGNANT NEOPLASM OF 02/27/2019 SHARON BRITT DO, Ot 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 02/27/2019 SHARON BRITT DO, Ot E11 .9 TYPE 2 DIABETES MELLITUS WITHOUT COMPLIC 02/27/2019 SHARON BRITT DO, Ot E78.00 PURE HYPERCHOLESTEROLEMIA, UNSPECIFIED 02/27/2019 SHARON BRITT DO, Ot E83.42 HYPOMAGNESEMIA 02/27/2019 SHARON BRITT DO, Ot I10 ESSENTIAL (PRIMARY) HYPERTENSION 02/27/2019 SHARON BRITT DO, Ot I25.10 ATHSCL HEART DISEASE OF [place] CORONARY 02/27/2019 SHARON BRITT DO, Ot I95 .9 HYPOTENSION, UNSPECIFIED 02/27/2019 SHARON BRITT DO, Ot Z79.02 UNION LABORER (CURRENT) USE OF ANTITHROMBOTI 02/27/2019 SHARON BRITT DO, Ot Z79.82 [facility] (CURRENT) 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 02/27/2019 SHARON BRITT DO, Ot 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 02/27/2019 SHARON BRITT DO, Ot Z80 .0 FAMILY HISTORY OF MALIGNANT NEOPLASM OF 02/27/2019 SHARON BRITT DO, Ot Z82.49 FAMILY HX OF ISCHEM HEART DIS AND OTH DI 02/27/2019 SHARON BRITT DO, Ot Z86.711 PERSONAL HISTORY OF PULMONARY EMBOLISM 02/27/2019 SHARON BRITT DO, Ot Z87.891 PERSONAL HISTORY OF NICOTINE DEPENDENCE 02/27/2019 SHARON BRITT DO Ot Z95 .5 PRESENCE OF CORONARY ANGIOPLASTY IMPLANT 03/01/2019 TIAGO MD, COREA Ot C18.2 MALIGNANT NEOPLASM OF ASCENDING COLON 03/01/2019 NAHOMY ORDOÑEZ MD Ot C77.2 SECONDARY AND UNSP MALIGNANT NEOPLASM OF 03/01/2019 NAHOMY ORDOÑEZ MD Ot D64.9 ANEMIA, UNSPECIFIED 03/01/2019 NAHOMY ORDOÑEZ MD Ot E11.9 TYPE 2 DIABETES MELLITUS WITHOUT COMPLIC 03/01/2019 NAHOMY ORDOÑEZ MD Ot I10 ESSENTIAL (PRIMARY) HYPERTENSION 03/01/2019 NAHOMY ORDOÑEZ MD Ot I25.10 ATHSCL HEART DISEASE OF [place] CORONARY 03/01/2019 NAHOMY ORDOÑEZ MD Ot Z51.11 ENCOUNTER FOR ANTINEOPLASTIC CHEMOTHERAP 03/01/2019 NAHOMY ORDOÑEZ MD Ot Z79.82 [facility] (CURRENT) 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 03/01/2019 NAHOMY ORDOÑEZ MD, Ot 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 03/01/2019 NAHOMY ORDOÑEZ MD, Ot Z79.899 OTHER [facility] (CURRENT) DRUG THERAPY 03/01/2019 NAHOMY ORDOÑEZ MD, Ot Z85.51 PERSONAL HISTORY OF MALIGNANT NEOPLASM O 03/07/2019 VIVIANE SALDIVAR MD Ot C18. 9 MALIGNANT NEOPLASM OF COLON, UNSPECIFIED 03/07/2019 VIVIANE SALDIVAR MD Ot C77. 9 SECONDARY AND UNSP MALIGNANT NEOPLASM OF 03/07/2019 VIVIANE SALDIVAR MD Ot D64. 9 ANEMIA, UNSPECIFIED 03/07/2019 VIVIANE SALDIVAR MD Ot E11. 9 TYPE 2 DIABETES MELLITUS WITHOUT COMPLIC 03/07/2019 VIVIANE SADLIVAR MD Ot E78. 00 PURE HYPERCHOLESTEROLEMIA, UNSPECIFIED 03/07/2019 VIVIANE SALDIVAR MD Ot H54. 7 UNSPECIFIED VISUAL LOSS 03/07/2019 VIVIANE SALDIVAR MD Ot I10 ESSENTIAL (PRIMARY) HYPERTENSION 03/07/2019 VIVIANE SALDIVAR MD Ot I25. 10 ATHSCL HEART DISEASE OF [place] CORONARY 03/07/2019 VIVIANE SALDIVAR MD Ot R07. 89 OTHER CHEST PAIN 03/07/2019 VIVIANE SALDIVAR MD Ot T45.1X5A ADVERSE EFFECT OF ANTINEOPLASTIC AND IMM 03/07/2019 VIVIANE SALDIVAR MD Ot Z79. 02 UNION LABORER (CURRENT) USE OF ANTITHROMBOTI 03/07/2019 VIVIANE SALDIVAR MD Ot Z79. 51 UNION LABORER (CURRENT) USE OF INHALED STERO 03/07/2019 VIVIANE SALDIVAR MD Ot Z79. 82 [facility] (CURRENT) 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 03/07/2019 VIVIANE SALDIVAR MD Ot Z79. 84 [facility] (CURRENT) USE OF ORAL HYPOGLYC 03/07/2019 VIVIANE SALDIVAR MD Ot Z80. 0 FAMILY HISTORY OF MALIGNANT NEOPLASM OF 03/07/2019 VIVIANE SALDIVAR MD Ot Z82. 49 FAMILY HX OF ISCHEM HEART DIS AND OTH DI 03/07/2019 VIVIANE SALDIVAR MD Ot Z85. 51 PERSONAL HISTORY OF MALIGNANT NEOPLASM O 03/07/2019 VIVIANE SALDIVAR MD Ot Z86.711 PERSONAL HISTORY OF PULMONARY EMBOLISM 03/07/2019 VIVIANE SALDIVAR MD Ot Z87.891 PERSONAL HISTORY OF NICOTINE DEPENDENCE 03/07/2019 VIVIANE SALDIVAR MD Ot Z95. 5 PRESENCE OF CORONARY ANGIOPLASTY IMPLANT 03/07/2019 VIVIANE SALDIVAR MD Ot Z98.890 OTHER SPECIFIED POSTPROCEDURAL STATES 03/07/2019 NAHOMY ORDOÑEZ MD Ot C18.2 MALIGNANT NEOPLASM OF ASCENDING COLON 03/07/2019 NAHOMY ORDOÑEZ MD, Ot C77.2 SECONDARY AND UNSP MALIGNANT NEOPLASM OF 03/07/2019 NAHOMY ORDOÑEZ MD, Ot D64.9 ANEMIA, UNSPECIFIED 03/07/2019 NAHOMY ORDOÑEZ MD, Ot E11.9 TYPE 2 DIABETES MELLITUS WITHOUT COMPLIC 03/07/2019 NAHOMY ORDOÑEZ MD Ot I10 ESSENTIAL (PRIMARY) HYPERTENSION 03/07/2019 NAHOMY ORDOÑEZ MD, Ot I25.10 ATHSCL HEART DISEASE OF [place] CORONARY 03/07/2019 NAHOMY ORDOÑEZ MD, Ot Z51.11 ENCOUNTER FOR ANTINEOPLASTIC CHEMOTHERAP 03/07/2019 NAHOMY ORDOÑEZ MD, Ot Z79.82 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 03/07/2019 NAHOMY ORDOÑEZ MD, Ot 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 03/07/2019 NAHOMY ORDOÑEZ MD, Ot Z79.899 OTHER UNION LABORER (CURRENT) DRUG THERAPY 03/07/2019 NAHOMY ORDOÑEZ MD, Ot Z85.51 PERSONAL HISTORY OF MALIGNANT NEOPLASM O 03/07/2019 NAHOMY ORDOÑEZ MD Ot C18.2 MALIGNANT NEOPLASM OF ASCENDING COLON 03/07/2019 NAHOMY ORDOÑEZ MD, Ot C77.2 SECONDARY AND UNSP MALIGNANT NEOPLASM OF 03/07/2019 NAHOMY ORDOÑEZ MD Ot D64.9 ANEMIA, UNSPECIFIED 03/07/2019 NAHOMY ORDOÑEZ MD Ot E11.9 TYPE 2 DIABETES MELLITUS WITHOUT COMPLIC 03/07/2019 NAHOMY ORDOÑEZ MD Ot I10 ESSENTIAL (PRIMARY) HYPERTENSION 03/07/2019 NAHOMY ORDOÑEZ MD Ot I25.10 ATHSCL HEART DISEASE OF [place] CORONARY 03/07/2019 NAHOMY ORDOÑEZ MD Ot Z79.82 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 03/07/2019 NAHOMY ORDOÑEZ MD Ot 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 03/07/2019 NAHOMY ORDOÑEZ MD Ot Z79.899 OTHER UNION LABORER (CURRENT) DRUG THERAPY 03/07/2019 NAHOMY ORDOÑEZ MD Ot Z85.51 PERSONAL HISTORY OF MALIGNANT NEOPLASM O 03/12/2019 VIVIANE SALDIVAR MD Ot C18. 9 MALIGNANT NEOPLASM OF COLON, UNSPECIFIED 03/12/2019 VIVIANE SALDIVAR MD Ot C77. 9 SECONDARY AND UNSP MALIGNANT NEOPLASM OF 03/12/2019 VIVIANE SALDIVAR MD Ot D64. 9 ANEMIA, UNSPECIFIED 03/12/2019 VIVIANE SALDIVAR MD Ot E11. 9 TYPE 2 DIABETES MELLITUS WITHOUT COMPLIC 03/12/2019 VIVIANE SALDIVAR MD Ot E78. 00 PURE HYPERCHOLESTEROLEMIA, UNSPECIFIED 03/12/2019 VIVIANE SALDIVAR MD Ot H54. 7 UNSPECIFIED VISUAL LOSS 03/12/2019 VIVIANE SALDIVAR MD Ot I10 ESSENTIAL (PRIMARY) HYPERTENSION 03/12/2019 VIVIANE SALDIVAR MD Ot I25. 10 ATHSCL HEART DISEASE OF [place] CORONARY 03/12/2019 VIVIANE SALDIVAR MD Ot R07. 89 OTHER CHEST PAIN 03/12/2019 VIVIANE SALDIVAR MD Ot T45.1X5A ADVERSE EFFECT OF ANTINEOPLASTIC AND IMM 03/12/2019 VIVIANE SALDIVAR MD Ot Z79. 02 [facility] (CURRENT) USE OF ANTITHROMBOTI 03/12/2019 VIVIANE SALDIVAR MD Ot Z79. 51 [facility] (CURRENT) USE OF INHALED STERO 03/12/2019 VIVIANE SALDIVAR MD Ot Z79. 82 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 03/12/2019 VIVIANE SALDIVAR MD Ot Z79. 84 [facility] (CURRENT) USE OF ORAL HYPOGLYC 03/12/2019 VIVIANE SALDIVAR MD, Ot Z80. 0 FAMILY HISTORY OF MALIGNANT NEOPLASM OF 03/12/2019 VIVIANE SALDIVAR MD, Ot Z82. 49 FAMILY HX OF ISCHEM HEART DIS AND OTH DI 03/12/2019 VIVIANE SALDIVAR MD, Ot Z85. 51 PERSONAL HISTORY OF MALIGNANT NEOPLASM O 03/12/2019 VIVIANE SALDIVAR MD, Ot Z86.711 PERSONAL HISTORY OF PULMONARY EMBOLISM 03/12/2019 VIVIANE SALDIVAR MD, Ot Z87.891 PERSONAL HISTORY OF NICOTINE DEPENDENCE 03/12/2019 VIVIANE SALDIVAR MD, Ot Z95. 5 PRESENCE OF CORONARY ANGIOPLASTY IMPLANT 03/12/2019 VIVIANE SALDIVAR MD, Ot Z98.890 OTHER SPECIFIED POSTPROCEDURAL STATES 03/22/2019 ANTOINE JEAN MD Ot C18 .9 MALIGNANT NEOPLASM OF COLON, UNSPECIFIED 03/22/2019 ANTOINE JEAN MD Ot D50 .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 03/22/2019 ANTOINE JEAN MD Ot D61.818 OTHER PANCYTOPENIA 03/22/2019 ANTOINE JEAN MD Ot D69 .6 THROMBOCYTOPENIA, UNSPECIFIED 03/22/2019 ANTOINE JEAN MD Ot D70 .8 OTHER NEUTROPENIA 03/22/2019 ANTOINE JEAN MD Ot E03 .9 HYPOTHYROIDISM, UNSPECIFIED 03/22/2019 ANTOINE JEAN MD Ot E11 .9 TYPE 2 DIABETES MELLITUS WITHOUT COMPLIC 03/22/2019 ANTOINE JEAN MD Ot E27.40 UNSPECIFIED ADRENOCORTICAL INSUFFICIENCY 03/22/2019 ANTOINE JEAN MD Ot E78.00 PURE HYPERCHOLESTEROLEMIA, UNSPECIFIED 03/22/2019 ANTOINE JEAN MD Ot E87 .1 HYPO-OSMOLALITY AND HYPONATREMIA 03/22/2019 ANTOINE JEAN MD Ot I10 ESSENTIAL (PRIMARY) HYPERTENSION 03/22/2019 ANTOINE JEAN MD Ot I25.10 ATHSCL HEART DISEASE OF [place] CORONARY 03/22/2019 ANTOINE JEAN MD Ot I25 .2 OLD MYOCARDIAL INFARCTION 03/22/2019 ANTOINE JEAN MD Ot I95 .1 ORTHOSTATIC HYPOTENSION 03/22/2019 ANTOINE JEAN MD, Ot K11.21 ACUTE SIALOADENITIS 03/22/2019 ANTOINE JEAN MD, Ot L40 .9 PSORIASIS, UNSPECIFIED 03/22/2019 ANTOINE JEAN MD, Ot R19 .7 DIARRHEA, UNSPECIFIED 03/22/2019 ANTOINE JEAN MD, Ot R74 .0 NONSPEC ELEV OF LEVELS OF TRANSAMNS [place] 03/22/2019 ANTOINE JEAN MD, Ot Z79.02 [facility] (CURRENT) USE OF ANTITHROMBOTI 03/22/2019 ANTOINE JEAN MD, Ot Z79.82 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 03/22/2019 ANTOINE JEAN MD, Ot Z79.899 OTHER [facility] (CURRENT) DRUG THERAPY 03/22/2019 ANTOINE JEAN MD, Ot Z85.51 PERSONAL HISTORY OF MALIGNANT NEOPLASM O 03/22/2019 ANTOINE JEAN MD, Ot Z86.711 PERSONAL HISTORY OF PULMONARY EMBOLISM 03/22/2019 ANTOINE JEAN MD, Ot Z86.718 PERSONAL HISTORY OF OTHER VENOUS THROMBO 03/22/2019 ANTOINE JEAN MD, Ot Z87.891 PERSONAL HISTORY OF NICOTINE DEPENDENCE 03/22/2019 ANTOINE JEAN MD, Ot Z90.49 ACQUIRED ABSENCE OF OTHER SPECIFIED PART 03/22/2019 ANTOINE JEAN MD, Ot Z95 .5 PRESENCE OF CORONARY ANGIOPLASTY IMPLANT 03/27/2019 NAHOMY ORDOÑEZ MD Ot C18.2 MALIGNANT NEOPLASM OF ASCENDING COLON 03/27/2019 NAHOMY ORDOÑEZ MD, Ot C77.2 SECONDARY AND UNSP MALIGNANT NEOPLASM OF 03/27/2019 NAHOMY ORDOÑEZ MD, Ot D64.9 ANEMIA, UNSPECIFIED 03/27/2019 NAHOMY ORDOÑEZ MD Ot E11.9 TYPE 2 DIABETES MELLITUS WITHOUT COMPLIC 03/27/2019 NAHOMY ORDOÑEZ MD Ot I10 ESSENTIAL (PRIMARY) HYPERTENSION 03/27/2019 NAHOMY ORDOÑEZ MD, Ot I25.10 ATHSCL HEART DISEASE OF [place] CORONARY 03/27/2019 NAHOMY ORDOÑEZ MD, Ot Z51.11 ENCOUNTER FOR ANTINEOPLASTIC CHEMOTHERAP 03/27/2019 NAHOMY ORDOÑEZ MD, Ot Z79.82 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 03/27/2019 NAHOMY ORDOÑEZ MD Ot Z79.84 [facility] (CURRENT) USE OF ORAL HYPOGLYC 03/27/2019 NAHOMY ORDOÑEZ MD Ot Z79.899 OTHER UNION LABORER (CURRENT) DRUG THERAPY 03/27/2019 NAHOMY ORDOÑEZ MD Ot Z85.51 PERSONAL HISTORY OF MALIGNANT NEOPLASM O 04/08/2019 NAHOMY ORDOÑEZ MD Ot C18.2 MALIGNANT NEOPLASM OF ASCENDING COLON 04/08/2019 NAHOMY ORDOÑEZ MD, Ot C77.2 SECONDARY AND UNSP MALIGNANT NEOPLASM OF 04/08/2019 NAHOMY ORDOÑEZ MD, Ot D64.9 ANEMIA, UNSPECIFIED 04/08/2019 NAHOMY ORDOÑEZ MD Ot E11.9 TYPE 2 DIABETES MELLITUS WITHOUT COMPLIC 04/08/2019 NAHOMY ORDOÑEZ MD Ot I10 ESSENTIAL (PRIMARY) HYPERTENSION 04/08/2019 NAHOMY ORDOÑEZ MD Ot I25.10 ATHSCL HEART DISEASE OF [place] CORONARY 04/08/2019 NAHOMY ORDOÑEZ MD Ot Z79.82 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 04/08/2019 NAHOMY ORDOÑEZ MD, Ot Z79.84 [facility] (CURRENT) USE OF ORAL HYPOGLYC 04/08/2019 NAHOMY ORDOÑEZ MD, Ot Z79.899 OTHER [facility] (CURRENT) DRUG THERAPY 04/08/2019 NAHOMY ORDOÑEZ MD, Ot Z85.51 PERSONAL HISTORY OF MALIGNANT NEOPLASM O 04/14/2019 TAVON SUGGS MD Ot Z48.812 ENCNTR FOR SURGICAL AFTCR FOLLOWING SURG 04/14/2019 TAVON SUGGS MD Ot Z95. 5 PRESENCE OF CORONARY ANGIOPLASTY IMPLANT 05/02/2019 SRIKANTH AGUILAR DO Ot C18. 9 MALIGNANT NEOPLASM OF COLON, UNSPECIFIED 05/02/2019 NAHOMY ORDOÑEZ MD, Ot C67.9 MALIGNANT NEOPLASM OF [place]AD[place], UNSPECIFI 05/02/2019 ALICE TORRES MD Ot I65.23 OCCLUSION AND STENOSIS OF BILATERAL [place] 05/02/2019 ALICE TORRES MD Ot K11.23 CHRONIC SIALOADENITIS 05/02/2019 NAHOMY ORDOÑEZ MD, Ot C18.2 MALIGNANT NEOPLASM OF ASCENDING COLON 05/02/2019 NAHOMY ORDOÑEZ MD, Ot C77.2 SECONDARY AND UNSP MALIGNANT NEOPLASM OF 05/02/2019 NAHOMY ORDOÑEZ MD, Ot D64.9 ANEMIA, UNSPECIFIED 05/02/2019 NAHOMY ORDOÑEZ MD Ot E11.9 TYPE 2 DIABETES MELLITUS WITHOUT COMPLIC 05/02/2019 NAHOMY ORDOÑEZ MD Ot I10 ESSENTIAL (PRIMARY) HYPERTENSION 05/02/2019 NAHOMY ORDOÑEZ MD Ot I25.10 ATHSCL HEART DISEASE OF [place] CORONARY 05/02/2019 NAHOMY ORDOÑEZ MD Ot Z51.11 ENCOUNTER FOR ANTINEOPLASTIC CHEMOTHERAP 05/02/2019 NAHOMY ORDOÑEZ MD Ot Z79.82 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 05/02/2019 NAHOMY ORDOÑEZ MD Ot Z79.84 [facility] (CURRENT) USE OF ORAL HYPOGLYC 05/02/2019 NAHOMY ORDOÑEZ MD Ot Z79.899 OTHER UNION LABORER (CURRENT) DRUG THERAPY 05/02/2019 NAHOMY ORDOÑEZ MD Ot Z85.51 PERSONAL HISTORY OF MALIGNANT NEOPLASM O 05/02/2019 NAHOMY ORDOÑEZ MD Ot C18.2 MALIGNANT NEOPLASM OF ASCENDING COLON 05/02/2019 NAHOMY ORDOÑEZ MD Ot C77.2 SECONDARY AND UNSP MALIGNANT NEOPLASM OF 05/02/2019 NAHOMY ORDOÑEZ MD, Ot D64.9 ANEMIA, UNSPECIFIED 05/02/2019 NAHOMY ORDOÑEZ MD Ot E11.9 TYPE 2 DIABETES MELLITUS WITHOUT COMPLIC 05/02/2019 NAHOMY ORDOÑEZ MD Ot I10 ESSENTIAL (PRIMARY) HYPERTENSION 05/02/2019 NAHOMY ORDOÑEZ MD Ot I25.10 ATHSCL HEART DISEASE OF [place] CORONARY 05/02/2019 NAHOMY ORDOÑEZ MD Ot Z79.82 [facility] (CURRENT) 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 05/02/2019 NAHOMY ORDOÑEZ MD Ot 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 05/02/2019 NAHOMY ORDOÑEZ MD Ot Z79.899 OTHER UNION LABORER (CURRENT) DRUG THERAPY 05/02/2019 NAHOMY ORDOÑEZ MD Ot Z85.51 PERSONAL HISTORY OF MALIGNANT NEOPLASM O 05/02/2019 TAVON SUGGS MD Ot Z48.812 ENCNTR FOR SURGICAL AFTCR FOLLOWING SURG 05/02/2019 TAVON SUGGS MD Ot Z95. 5 PRESENCE OF CORONARY ANGIOPLASTY IMPLANT 05/08/2019 KE CONDE MD Ot D64. 9 ANEMIA, UNSPECIFIED 05/08/2019 KE CONDE MD Ot R19. 5 OTHER FECAL ABNORMALITIES 05/09/2019 BJORN VALENZUELA MD Ot D64. 9 ANEMIA, UNSPECIFIED 05/09/2019 BJORN VALENZUELA MD Ot E11. 9 TYPE 2 DIABETES MELLITUS WITHOUT COMPLIC 05/09/2019 BJORN VALENZUELA MD, Ot E78. 00 PURE HYPERCHOLESTEROLEMIA, UNSPECIFIED 05/09/2019 BJORN VALENZUELA MD, Ot I10 ESSENTIAL (PRIMARY) HYPERTENSION 05/09/2019 BJORN VALENZUELA MD, Ot I25. 10 ATHSCL HEART DISEASE OF [place] CORONARY 05/09/2019 BJORN VALENZUELA MD, Ot K59. 00 CONSTIPATION, UNSPECIFIED 05/09/2019 BJORN VALENZUELA MD, Ot R33. 9 RETENTION OF URINE, UNSPECIFIED 05/09/2019 BJORN VALENZUELA MD, Ot Z79. 02 UNION LABORER (CURRENT) USE OF ANTITHROMBOTI 05/09/2019 BJORN VALENZUELA MD Ot Z79. 51 [facility] (CURRENT) USE OF INHALED STERO 05/09/2019 BJORN VALENZUELA MD, Ot Z79. 82 [facility] (CURRENT) 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 05/09/2019 BJORN VALENZUELA MD, Ot Z79. 84 UNION LABORER (CURRENT) USE OF ORAL HYPOGLYC 05/09/2019 BJORN VALENZUELA MD Ot Z80. 0 FAMILY HISTORY OF MALIGNANT NEOPLASM OF 05/09/2019 BJORN VALENZUELA MD Ot Z82. 49 FAMILY HX OF ISCHEM HEART DIS AND OTH DI 05/09/2019 BJORN VALENZUELA MD Ot Z85.038 PERSONAL HISTORY OF MALIGNANT NEOPLASM O 05/09/2019 BJORN VALENZUELA MD Ot Z85. 51 PERSONAL HISTORY OF MALIGNANT NEOPLASM O 05/09/2019 BJORN VALENZUELA MD Ot Z86.711 PERSONAL HISTORY OF PULMONARY EMBOLISM 05/09/2019 BJORN VALENZUELA MD, Ot Z86.718 PERSONAL HISTORY OF OTHER VENOUS THROMBO 05/09/2019 BJORN VALENZUELA MD, Ot Z87.891 PERSONAL HISTORY OF NICOTINE DEPENDENCE 05/09/2019 BJORN VALENZUELA MD Ot Z88. 8 ALLERGY STATUS TO OT DRUG/MEDS/BIOL SUB 05/09/2019 BJORN VALENZUELA MD Ot Z90. 49 ACQUIRED ABSENCE OF OTHER SPECIFIED PART 05/09/2019 BJORN VALENZUELA MD Ot Z95. 5 PRESENCE OF CORONARY ANGIOPLASTY IMPLANT 05/14/2019 BJORN VALENZUELA MD, Ot D64. 9 ANEMIA, UNSPECIFIED 05/14/2019 BJORN VALENZUELA MD Ot E11. 9 TYPE 2 DIABETES MELLITUS WITHOUT COMPLIC 05/14/2019 BJORN VALENZUELA MD, Ot E78. 00 PURE HYPERCHOLESTEROLEMIA, UNSPECIFIED 05/14/2019 BJORN VALENZUELA MD, Ot I10 ESSENTIAL (PRIMARY) HYPERTENSION 05/14/2019 BJORN VALENZUELA MD, Ot I25. 10 ATHSCL HEART DISEASE OF [place] CORONARY 05/14/2019 BJORN VALENZUELA MD, Ot K59. 00 CONSTIPATION, UNSPECIFIED 05/14/2019 BJORN VALENZUELA MD, Ot R33. 9 RETENTION OF URINE, UNSPECIFIED 05/14/2019 BJORN VALENZUELA MD, Ot Z79. 02 [facility] (CURRENT) USE OF ANTITHROMBOTI 05/14/2019 BJORN VALENZUELA MD, Ot Z79. 51 UNION LABORER (CURRENT) USE OF INHALED STERO 05/14/2019 BJORN VALENZUELA MD, Ot Z79. 82 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 05/14/2019 BJORN VALENZUELA MD, Ot Z79. 84 UNION LABORER (CURRENT) USE OF ORAL HYPOGLYC 05/14/2019 BJORN VALENZUELA MD, Ot Z80. 0 FAMILY HISTORY OF MALIGNANT NEOPLASM OF 05/14/2019 BJORN VALENZUELA MD, Ot Z82. 49 FAMILY HX OF ISCHEM HEART DIS AND OTH DI 05/14/2019 BJORN VALENZUELA MD Ot Z85.038 PERSONAL HISTORY OF MALIGNANT NEOPLASM O 05/14/2019 BJORN VALENZUELA MD Ot Z85. 51 PERSONAL HISTORY OF MALIGNANT NEOPLASM O 05/14/2019 BJORN VALENZUELA MD Ot Z86.711 PERSONAL HISTORY OF PULMONARY EMBOLISM 05/14/2019 BJORN VALENZUELA MD, Ot Z86.718 PERSONAL HISTORY OF OTHER VENOUS THROMBO 05/14/2019 BJORN VALENZUELA MD Ot Z87.891 PERSONAL HISTORY OF NICOTINE DEPENDENCE 05/14/2019 BJORN VALENZUELA MD, Ot Z88. 8 ALLERGY STATUS TO OT DRUG/MEDS/BIOL SUB 05/14/2019 BJORN VALENZUELA MD, Ot Z90. 49 ACQUIRED ABSENCE OF OTHER SPECIFIED PART 05/14/2019 BJORN VALENZUELA MD Ot Z95. 5 PRESENCE OF CORONARY ANGIOPLASTY IMPLANT 06/04/2019 NAHOMY ORDOÑEZ MD Ot C18.2 MALIGNANT NEOPLASM OF ASCENDING COLON 06/04/2019 NAHOMY ORDOÑEZ MD, Ot C77.2 SECONDARY AND UNSP MALIGNANT NEOPLASM OF 06/04/2019 TIAGO MD, COREA Ot D64.9 ANEMIA, UNSPECIFIED 06/04/2019 NAHOMY ORDOÑEZ MD Ot E11.9 TYPE 2 DIABETES MELLITUS WITHOUT COMPLIC 06/04/2019 NAHOMY ORDOÑEZ MD Ot I10 ESSENTIAL (PRIMARY) HYPERTENSION 06/04/2019 NAHOMY ORDOÑEZ MD Ot I25.10 ATHSCL HEART DISEASE OF [place] CORONARY 06/04/2019 NAHOMY ORDOÑEZ MD Ot Z51.11 ENCOUNTER FOR ANTINEOPLASTIC CHEMOTHERAP 06/04/2019 NAHOMY ORDOÑEZ MD Ot Z79.82 [facility] (CURRENT) 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 06/04/2019 NAHOMY ORDOÑEZ MD Ot 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 06/04/2019 NAHOMY ORDOÑEZ MD Ot Z79.899 OTHER [facility] (CURRENT) DRUG THERAPY 06/04/2019 NAHOMY ORDOÑEZ MD Ot Z85.51 PERSONAL HISTORY OF MALIGNANT NEOPLASM O 06/05/2019 NAHOMY ORDOÑEZ MD Ot C18.2 MALIGNANT NEOPLASM OF ASCENDING COLON 06/05/2019 NAHOMY ORDOÑEZ MD Ot C77.2 SECONDARY AND UNSP MALIGNANT NEOPLASM OF 06/05/2019 NAHOMY ORDOÑEZ MD Ot D64.9 ANEMIA, UNSPECIFIED 06/05/2019 NAHOMY ORDOÑEZ MD Ot E11.9 TYPE 2 DIABETES MELLITUS WITHOUT COMPLIC 06/05/2019 NAHOMY ORDOÑEZ MD Ot I10 ESSENTIAL (PRIMARY) HYPERTENSION 06/05/2019 NAHOMY ORDOÑEZ MD Ot I25.10 ATHSCL HEART DISEASE OF [place] CORONARY 06/05/2019 NAHOMY ORDOÑEZ MD Ot Z51.11 ENCOUNTER FOR ANTINEOPLASTIC CHEMOTHERAP 06/05/2019 NAHOMY ORDOÑEZ MD Ot Z79.82 [facility] (CURRENT) 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 06/05/2019 NAHOMY ORDOÑEZ MD Ot Z79.84 [facility] (CURRENT) USE OF ORAL HYPOGLYC 06/05/2019 NAHOMY ORDOÑEZ MD Ot Z79.899 OTHER [facility] (CURRENT) DRUG THERAPY 06/05/2019 NAHOMY ORDOÑEZ MD Ot Z85.51 PERSONAL HISTORY OF MALIGNANT NEOPLASM O 06/20/2019 DIONSALENA STATEMENT CLERKS MANAGER Ot N40. 1 BENIGN PROSTATIC HYPERPLASIA WITH LOWER 06/21/2019 DIONSALENA STATEMENT CLERKS MANAGER Ot N40. 1 BENIGN PROSTATIC HYPERPLASIA WITH LOWER 06/21/2019 DIONSALENA STATEMENT CLERKS MANAGER Ot N40. 1 BENIGN PROSTATIC HYPERPLASIA WITH LOWER 06/29/2019 NAHOMY ORDOÑEZ MD Ot C18.2 MALIGNANT NEOPLASM OF ASCENDING COLON 06/29/2019 NAHOMY ORDOÑEZ MD Ot C77.2 SECONDARY AND UNSP MALIGNANT NEOPLASM OF 06/29/2019 NAHOMY ORDOÑEZ MD Ot D64.9 ANEMIA, UNSPECIFIED 06/29/2019 NAHOMY ORDOÑEZ MD Ot E11.9 TYPE 2 DIABETES MELLITUS WITHOUT COMPLIC 06/29/2019 NAHOMY ORDOÑEZ MD Ot I10 ESSENTIAL (PRIMARY) HYPERTENSION 06/29/2019 NAHOMY ORDOÑEZ MD Ot I25.10 ATHSCL HEART DISEASE OF [place] CORONARY 06/29/2019 NAHOMY ORDOÑEZ MD Ot Z51.11 ENCOUNTER FOR ANTINEOPLASTIC CHEMOTHERAP 06/29/2019 NAHOMY ORDOÑEZ MD Ot Z79.82 [facility] (CURRENT) 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 06/29/2019 NAHOMY ORDOÑEZ MD Ot Z79.84 [facility] (CURRENT) USE OF ORAL HYPOGLYC 06/29/2019 NAHOMY ORDOÑEZ MD Ot Z79.899 OTHER [facility] (CURRENT) DRUG THERAPY 06/29/2019 NAHOMY ORDOÑEZ MD Ot Z85.51 PERSONAL HISTORY OF MALIGNANT NEOPLASM O 07/03/2019 SALENA ASHLEY STATEMENT CLERKS MANAGER Ot N40. 1 BENIGN PROSTATIC HYPERPLASIA WITH LOWER 07/04/2019 NAHOMY ORDOÑEZ MD Ot C18.2 MALIGNANT NEOPLASM OF ASCENDING COLON 07/04/2019 NAHOMY ORDOÑEZ MD Ot C77.2 SECONDARY AND UNSP MALIGNANT NEOPLASM OF 07/04/2019 NAHOMY ORDOÑEZ MD Ot D64.9 ANEMIA, UNSPECIFIED 07/04/2019 NAHOMY ORDOÑEZ MD Ot E11.9 TYPE 2 DIABETES MELLITUS WITHOUT COMPLIC 07/04/2019 NAHOMY ORDOÑEZ MD Ot I10 ESSENTIAL (PRIMARY) HYPERTENSION 07/04/2019 NAHOMY ORDOÑEZ MD Ot I25.10 ATHSCL HEART DISEASE OF [place] CORONARY 07/04/2019 NAHOMY ORDOÑEZ MD Ot Z79.82 [facility] (CURRENT) 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 07/04/2019 NAHOMY ORDOÑEZ MD Ot Z79.84 [facility] (CURRENT) USE OF ORAL HYPOGLYC 07/04/2019 NAHOMY ORDOÑEZ MD Ot Z79.899 OTHER UNION LABORER (CURRENT) DRUG THERAPY 07/04/2019 NAHOMY ORDOÑEZ MD Ot Z85.51 PERSONAL HISTORY OF MALIGNANT NEOPLASM O 07/23/2019 KE CONDE MD Ot D50. 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 07/28/2019 KE CONDE MD, Ot D50. 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 07/29/2019 SAVANAH CHAVEZ MD Ot E11.65 TYPE 2 DIABETES MELLITUS WITH HYPERGLYCE 08/01/2019 NAHOMY ORDOÑEZ MD, Ot C18.2 MALIGNANT NEOPLASM OF ASCENDING COLON 08/01/2019 NAHOMY ORDOÑEZ MD, Ot C67.9 MALIGNANT NEOPLASM OF BLADDER, UNSPECIFI 08/01/2019 NAHOMY ORDOÑEZ MD, Ot C77.2 SECONDARY AND UNSP MALIGNANT NEOPLASM OF 08/01/2019 NAHOMY ORDOÑEZ MD Ot D64.81 ANEMIA DUE TO ANTINEOPLASTIC CHEMOTHERAP 08/01/2019 NAHOMY ORDOÑEZ MD Ot E11.9 TYPE 2 DIABETES MELLITUS WITHOUT COMPLIC 08/01/2019 NAHOMY ORDOÑEZ MD, Ot I10 ESSENTIAL (PRIMARY) HYPERTENSION 08/01/2019 NAHOMY ORDOÑEZ MD, Ot I25.10 ATHSCL HEART DISEASE OF [place] CORONARY 08/01/2019 NAHOMY ORDOÑEZ MD, Ot I44.30 UNSPECIFIED ATRIOVENTRICULAR BLOCK 08/01/2019 NAHOMY ORDOÑEZ MD, Ot I65.29 OCCLUSION AND STENOSIS OF UNSPECIFIED CA 08/01/2019 NAHOMY ORDOÑEZ MD, Ot I95.9 HYPOTENSION, UNSPECIFIED 08/01/2019 NAHOMY ORDOÑEZ MD Ot K11.20 SIALOADENITIS, UNSPECIFIED 08/01/2019 NAHOMY ORDOÑEZ MD, Ot K92.2 GASTROINTESTINAL HEMORRHAGE, UNSPECIFIED 08/01/2019 NAHOMY ORDOÑEZ MD Ot Z79.82 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 08/01/2019 NAHOMY ORDOÑEZ MD, Ot Z79.84 [facility] (CURRENT) USE OF ORAL HYPOGLYC 08/01/2019 NAHOMY ORDOÑEZ MD, Ot Z79.899 OTHER UNION LABORER (CURRENT) DRUG THERAPY 08/01/2019 NAHOMY ORDOÑEZ MD, Ot Z80.9 FAMILY HISTORY OF MALIGNANT NEOPLASM, UN 08/01/2019 NAHOMY ORDOÑEZ MD, Ot Z87.891 PERSONAL HISTORY OF NICOTINE DEPENDENCE 08/01/2019 NAHOMY ORDOÑEZ MD, Ot Z90.49 ACQUIRED ABSENCE OF OTHER SPECIFIED PART 08/01/2019 NAHOMY ORDOÑEZ MD, Ot Z98.61 CORONARY ANGIOPLASTY STATUS 08/08/2019 SRIKANTH AGUILAR DO Ot C18. 9 MALIGNANT NEOPLASM OF COLON, UNSPECIFIED 08/08/2019 NAHOMY ORDOÑEZ MD, Ot C67.9 MALIGNANT NEOPLASM OF BLAD[place], UNSPECIFI 08/08/2019 ALICE TORRES MD, Ot I65.23 OCCLUSION AND STENOSIS OF BILATERAL [place] 08/08/2019 ALICE TORRES MD Ot K11.23 CHRONIC SIALOADENITIS 08/08/2019 TAVON SUGGS MD, Ot Z48.812 ENCNTR FOR SURGICAL AFTCR FOLLOWING SURG 08/08/2019 TAVON SUGGS MD, Ot Z95. 5 PRESENCE OF CORONARY ANGIOPLASTY IMPLANT 08/08/2019 KE CONDE MD Ot D64. 9 ANEMIA, UNSPECIFIED 08/08/2019 KE CONDE MD Ot R19. 5 OTHER FECAL ABNORMALITIES 08/08/2019 NAHOMY ORDOÑEZ MD Ot C18.2 MALIGNANT NEOPLASM OF ASCENDING COLON 08/08/2019 NAHOMY ORDOÑEZ MD, Ot C67.9 MALIGNANT NEOPLASM OF BLADDER, UNSPECIFI 08/08/2019 NAHOMY ORDOÑEZ MD, Ot C77.2 SECONDARY AND UNSP MALIGNANT NEOPLASM OF 08/08/2019 NAHOMY ORDOÑEZ MD, Ot D64.81 ANEMIA DUE TO ANTINEOPLASTIC CHEMOTHERAP 08/08/2019 NAHOMY ORDOÑEZ MD Ot E11.9 TYPE 2 DIABETES MELLITUS WITHOUT COMPLIC 08/08/2019 NAHOMY ORDOÑEZ MD Ot I10 ESSENTIAL (PRIMARY) HYPERTENSION 08/08/2019 NAHOMY ORDOÑEZ MD Ot I25.10 ATHSCL HEART DISEASE OF [place] CORONARY 08/08/2019 NAHOMY ORDOÑEZ MD Ot I44.30 UNSPECIFIED ATRIOVENTRICULAR BLOCK 08/08/2019 NAHOMY ORDOÑEZ MD, Ot I65.29 OCCLUSION AND STENOSIS OF UNSPECIFIED CA 08/08/2019 NAHOMY ORDOÑEZ MD Ot I95.9 HYPOTENSION, UNSPECIFIED 08/08/2019 NAHOMY ORDOÑEZ MD Ot K11.20 SIALOADENITIS, UNSPECIFIED 08/08/2019 NAHOMY ORDOÑEZ MD Ot K92.2 GASTROINTESTINAL HEMORRHAGE, UNSPECIFIED 08/08/2019 NAHOMY ORDOÑEZ MD Ot Z79.82 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 08/08/2019 NAHOMY ORDOÑEZ MD Ot 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 08/08/2019 NAHOMY ORDOÑEZ MD Ot Z79.899 OTHER UNION LABORER (CURRENT) DRUG THERAPY 08/08/2019 NAHOMY ORDOÑEZ MD Ot Z80.9 FAMILY HISTORY OF MALIGNANT NEOPLASM, UN 08/08/2019 NAHOMY ORDOÑEZ MD Ot Z87.891 PERSONAL HISTORY OF NICOTINE DEPENDENCE 08/08/2019 NAHOMY ORDOÑEZ MD Ot Z90.49 ACQUIRED ABSENCE OF OTHER SPECIFIED PART 08/08/2019 NAHOMY ORDOÑEZ MD Ot Z98.61 CORONARY ANGIOPLASTY STATUS 08/08/2019 SALENA ASHLEY APRN Ot N40. 1 BENIGN PROSTATIC HYPERPLASIA WITH LOWER 08/08/2019 Ot C18.2 JEMAL GNANT NEOPLASM OF ASCENDING COLON 08/08/2019 Ot C77.2 SECO NDARY AND UNSP MALIGNANT NEOPLASM OF 08/08/2019 Ot D64.9 ANEM IA, UNSPECIFIED 08/08/2019 Ot E11.9 TYPE 2 DIABETES MELLITUS WITHOUT COMPLIC 08/08/2019 Ot I10 ESSENT IAL (PRIMARY) HYPERTENSION 08/08/2019 Ot I25.10 ATH SCL HEART DISEASE OF [place] CORONARY 08/08/2019 Ot Z79.82 MERE G TERM (CURRENT) 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 08/08/2019 Ot Z79.84 MERE G TERM (CURRENT) USE OF ORAL HYPOGLYC 08/08/2019 Ot Z79.899 OT HER [facility] (CURRENT) DRUG THERAPY 08/08/2019 Ot Z85.51 PER ROBERT HISTORY OF MALIGNANT NEOPLASM O 08/08/2019 KATHY SEQUEIRA, SAVANAH E Ot E11.65 TYPE 2 DIABETES MELLITUS WITH HYPERGLYCE 08/08/2019 KE CONDE MD Ot D50. 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 08/09/2019 KE CONDE MD Ot D53. 9 NUTRITIONAL ANEMIA, UNSPECIFIED 08/12/2019 SRIKANTH AGUILAR DO Ot C18. 9 MALIGNANT NEOPLASM OF COLON, UNSPECIFIED 08/12/2019 NAHOMY ORDOÑEZ MD, Ot C67.9 MALIGNANT NEOPLASM OF [place], UNSPECIFI 08/12/2019 ALICE TORRES MD Ot I65.23 OCCLUSION AND STENOSIS OF BILATERAL [place] 08/12/2019 ALICE TORRES MD Ot K11.23 CHRONIC SIALOADENITIS 08/12/2019 TAVON SUGGS MD Ot Z48.812 ENCNTR FOR SURGICAL AFTCR FOLLOWING SURG 08/12/2019 TAVON SUGGS MD Ot Z95. 5 PRESENCE OF CORONARY ANGIOPLASTY IMPLANT 08/12/2019 KE CONDE MD Ot D64. 9 ANEMIA, UNSPECIFIED 08/12/2019 KE CONDE MD Ot R19. 5 OTHER FECAL ABNORMALITIES 08/12/2019 NAHOMY ORDOÑEZ MD Ot C18.2 MALIGNANT NEOPLASM OF ASCENDING COLON 08/12/2019 NAHOMY ORDOÑEZ MD Ot C67.9 MALIGNANT NEOPLASM OF [place], UNSPECIFI 08/12/2019 NAHOMY ORDOÑEZ MD, Ot C77.2 SECONDARY AND UNSP MALIGNANT NEOPLASM OF 08/12/2019 NAHOMY ORDOÑEZ MD Ot D64.81 ANEMIA DUE TO ANTINEOPLASTIC CHEMOTHERAP 08/12/2019 NAHOMY ORDOÑEZ MD Ot E11.9 TYPE 2 DIABETES MELLITUS WITHOUT COMPLIC 08/12/2019 NAHOMY ORDOÑEZ MD Ot I10 ESSENTIAL (PRIMARY) HYPERTENSION 08/12/2019 NAHOMY ORDOÑEZ MD Ot I25.10 ATHSCL HEART DISEASE OF [place] CORONARY 08/12/2019 NAHOMY ORDOÑEZ MD Ot I44.30 UNSPECIFIED ATRIOVENTRICULAR BLOCK 08/12/2019 NAHOMY ORDOÑEZ MD, Ot I65.29 OCCLUSION AND STENOSIS OF UNSPECIFIED CA 08/12/2019 NAHOMY ORDOÑEZ MD Ot I95.9 HYPOTENSION, UNSPECIFIED 08/12/2019 NAHOMY ORDOÑEZ MD Ot K11.20 SIALOADENITIS, UNSPECIFIED 08/12/2019 NAHOMY ORDOÑEZ MD Ot K92.2 GASTROINTESTINAL HEMORRHAGE, UNSPECIFIED 08/12/2019 NAHOMY ORDOÑEZ MD Ot Z79.82 [facility] (CURRENT) 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 08/12/2019 NAHOMY ORDOÑEZ MD Ot 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 08/12/2019 NAHOMY ORDOÑEZ MD Ot Z79.899 OTHER UNION LABORER (CURRENT) DRUG THERAPY 08/12/2019 NAHOMY ORDOÑEZ MD Ot Z80.9 FAMILY HISTORY OF MALIGNANT NEOPLASM, UN 08/12/2019 NAHOMY ORDOÑEZ MD, Ot Z87.891 PERSONAL HISTORY OF NICOTINE DEPENDENCE 08/12/2019 NAHOMY ORDOÑEZ MD Ot Z90.49 ACQUIRED ABSENCE OF OTHER SPECIFIED PART 08/12/2019 NAHOMY ORDOÑEZ MD Ot Z98.61 CORONARY ANGIOPLASTY STATUS 08/12/2019 SALENA ASHLEY STATEMENT CLERKS MANAGER Ot N40. 1 BENIGN PROSTATIC HYPERPLASIA WITH LOWER 08/12/2019 Ot C18.2 JEMAL GNANT NEOPLASM OF ASCENDING COLON 08/12/2019 Ot C77.2 SECO NDARY AND UNSP MALIGNANT NEOPLASM OF 08/12/2019 Ot D64.9 ANEM IA, UNSPECIFIED 08/12/2019 Ot E11.9 TYPE 2 DIABETES MELLITUS WITHOUT COMPLIC 08/12/2019 Ot I10 ESSENT IAL (PRIMARY) HYPERTENSION 08/12/2019 Ot I25.10 ATH SCL HEART DISEASE OF [place] CORONARY 08/12/2019 Ot Z79.82 MERE G TERM (CURRENT) 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 08/12/2019 Ot Z79.84 MERE G TERM (CURRENT) USE OF ORAL HYPOGLYC 08/12/2019 Ot Z79.899 OT HER UNION LABORER (CURRENT) DRUG THERAPY 08/12/2019 Ot Z85.51 PER ROBERT HISTORY OF MALIGNANT NEOPLASM O 08/12/2019 KATHY SEQUEIRA, SAVANAH Murrell Ot E11.65 TYPE 2 DIABETES MELLITUS WITH HYPERGLYCE 08/12/2019 KE CONDE MD Ot D50. 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 08/12/2019 KE CONDE MD Ot D53. 9 NUTRITIONAL ANEMIA, UNSPECIFIED 08/23/2019 TAVON SUGGS MD Ot E11. 9 TYPE 2 DIABETES MELLITUS WITHOUT COMPLIC 08/23/2019 TAVON SUGGS MD Ot I10 ESSENTIAL (PRIMARY) HYPERTENSION 08/23/2019 TAVON SUGGS MD Ot I25. 10 ATHSCL HEART DISEASE OF [place] CORONARY 08/23/2019 TAVON SUGGS MD Ot R55 SYNCOPE AND COLLAPSE 09/10/2019 TAVON SUGGS MD Ot E11. 9 TYPE 2 DIABETES MELLITUS WITHOUT COMPLIC 09/10/2019 TAVON SUGGS MD Ot I10 ESSENTIAL (PRIMARY) HYPERTENSION 09/10/2019 TAVON SUGGS MD Ot I25. 10 ATHSCL HEART DISEASE OF [place] CORONARY 09/10/2019 TAVON SUGGS MD Ot R55 SYNCOPE AND COLLAPSE 09/13/2019 KE CONDE MD Ot D53. 9 NUTRITIONAL ANEMIA, UNSPECIFIED 09/16/2019 NAHOMY ORDOÑEZ MD, Ot C67.9 MALIGNANT NEOPLASM OF BLADDER, UNSPECIFI 09/16/2019 NAHOMY ORDOÑEZ MD, Ot J43.9 EMPHYSEMA, UNSPECIFIED 09/16/2019 NAHOMY ORDOÑEZ MD Ot Z98.890 OTHER SPECIFIED POSTPROCEDURAL STATES 09/17/2019 NAHOMY ORDOÑEZ MD, Ot C18.2 MALIGNANT NEOPLASM OF ASCENDING COLON 09/17/2019 NAHOMY ORDOÑEZ MD, Ot C67.9 MALIGNANT NEOPLASM OF BLADDER, UNSPECIFI 09/17/2019 NAHOMY ORDOÑEZ MD Ot C77.2 SECONDARY AND UNSP MALIGNANT NEOPLASM OF 09/17/2019 NAHOMY ORDOÑEZ MD Ot D64.81 ANEMIA DUE TO ANTINEOPLASTIC CHEMOTHERAP 09/17/2019 NAHOMY ORDOÑEZ MD Ot E11.9 TYPE 2 DIABETES MELLITUS WITHOUT COMPLIC 09/17/2019 NAHOMY ORDOÑEZ MD Ot I10 ESSENTIAL (PRIMARY) HYPERTENSION 09/17/2019 NAHOMY ORDOÑEZ MD Ot I25.10 ATHSCL HEART DISEASE OF [place] CORONARY 09/17/2019 NAHOMY ORDOÑEZ MD Ot I44.30 UNSPECIFIED ATRIOVENTRICULAR BLOCK 09/17/2019 NAHOMY ORDOÑEZ MD Ot I65.29 OCCLUSION AND STENOSIS OF UNSPECIFIED CA 09/17/2019 NAHOMY ORDOÑEZ MD Ot I95.9 HYPOTENSION, UNSPECIFIED 09/17/2019 NAHOMY ORDOÑEZ MD Ot K11.20 SIALOADENITIS, UNSPECIFIED 09/17/2019 NAHOMY ORDOÑEZ MD Ot K92.2 GASTROINTESTINAL HEMORRHAGE, UNSPECIFIED 09/17/2019 NAHOMY ORDOÑEZ MD Ot Z79.82 [facility] (CURRENT) 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 09/17/2019 NAHOMY ORDOÑEZ MD Ot Z79.84 [facility] (CURRENT) USE OF ORAL HYPOGLYC 09/17/2019 NAHOMY ORDOÑEZ MD Ot Z79.899 OTHER [facility] (CURRENT) DRUG THERAPY 09/17/2019 NAHOMY ORDOÑEZ MD Ot Z80.9 FAMILY HISTORY OF MALIGNANT NEOPLASM, UN 09/17/2019 NAHOMY ORDOÑEZ MD Ot Z87.891 PERSONAL HISTORY OF NICOTINE DEPENDENCE 09/17/2019 NAHOMY ORDOÑEZ MD Ot Z90.49 ACQUIRED ABSENCE OF OTHER SPECIFIED PART 09/17/2019 NAHOMY ORDOÑEZ MD Ot Z98.61 CORONARY ANGIOPLASTY STATUS 09/19/2019 NAHOMY ORDOÑEZ MD Ot C67.9 MALIGNANT NEOPLASM OF [place], UNSPECIFI 09/19/2019 NAHOMY ORDOÑEZ MD Ot J43.9 EMPHYSEMA, UNSPECIFIED 09/19/2019 NAHOMY ORDOÑEZ MD Ot Z98.890 OTHER SPECIFIED POSTPROCEDURAL STATES 09/19/2019 NAHOMY ORDOÑEZ MD Ot C18.2 MALIGNANT NEOPLASM OF ASCENDING COLON 09/19/2019 NAHOMY ORDOÑEZ MD Ot C67.9 MALIGNANT NEOPLASM OF [place], UNSPECIFI 09/19/2019 NAHOMY ORDOÑEZ MD Ot C77.2 SECONDARY AND UNSP MALIGNANT NEOPLASM OF 09/19/2019 NAHOMY ORDOÑEZ MD Ot D64.81 ANEMIA DUE TO ANTINEOPLASTIC CHEMOTHERAP 09/19/2019 NAHOMY ORDOÑEZ MD Ot E11.9 TYPE 2 DIABETES MELLITUS WITHOUT COMPLIC 09/19/2019 NAHOMY ORDOÑEZ MD Ot I10 ESSENTIAL (PRIMARY) HYPERTENSION 09/19/2019 NAHOMY ORDOÑEZ MD Ot I25.10 ATHSCL HEART DISEASE OF [place] CORONARY 09/19/2019 NAHOMY ORDOÑEZ MD Ot I44.30 UNSPECIFIED ATRIOVENTRICULAR BLOCK 09/19/2019 NAHOMY ORDOÑEZ MD Ot I65.29 OCCLUSION AND STENOSIS OF UNSPECIFIED CA 09/19/2019 NAHOMY ORDOÑEZ MD Ot I95.9 HYPOTENSION, UNSPECIFIED 09/19/2019 NAHOMY ORDOÑEZ MD Ot K11.20 SIALOADENITIS, UNSPECIFIED 09/19/2019 NAHOMY ORDOÑEZ MD Ot K92.2 GASTROINTESTINAL HEMORRHAGE, UNSPECIFIED 09/19/2019 NAHOMY ORDOÑEZ MD Ot 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.82 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 09/19/2019 NAHOMY ORDOÑEZ MD Ot Z79.84 [facility] (CURRENT) USE OF ORAL HYPOGLYC 09/19/2019 NAHOMY ORDOÑEZ MD Ot Z79.899 OTHER [facility] (CURRENT) DRUG THERAPY 09/19/2019 NAHOMY ORDOÑEZ MD Ot Z80.9 FAMILY HISTORY OF MALIGNANT NEOPLASM, UN 09/19/2019 NAHOMY ORDOÑEZ MD Ot Z87.891 PERSONAL HISTORY OF NICOTINE DEPENDENCE 09/19/2019 NAHOMY ORDOÑEZ MD Ot Z90.49 ACQUIRED ABSENCE OF OTHER SPECIFIED PART 09/19/2019 NAHOMY ORDOÑEZ MD Ot Z98.61 CORONARY ANGIOPLASTY STATUS 10/02/2019 NAHOMY ORDOÑEZ MD Ot C67.9 MALIGNANT NEOPLASM OF [place], UNSPECIFI 10/02/2019 NAHOMY ORDOÑEZ MD Ot J43.9 EMPHYSEMA, UNSPECIFIED 10/02/2019 NAHOMY ORDOÑEZ MD Ot Z98.890 OTHER SPECIFIED POSTPROCEDURAL STATES 11/01/2019 SRIKANTH AGUILAR DO Ot C18. 9 MALIGNANT NEOPLASM OF COLON, UNSPECIFIED 11/01/2019 NAHOMY ORDOÑEZ MD Ot C67.9 MALIGNANT NEOPLASM OF [place], UNSPECIFI 11/01/2019 ALICE TORRES MD Ot I65.23 OCCLUSION AND STENOSIS OF BILATERAL [place] 11/01/2019 ALICE TORRES MD Ot K11.23 CHRONIC SIALOADENITIS 11/01/2019 TAVON SUGGS MD Ot Z48.812 ENCNTR FOR SURGICAL AFTCR FOLLOWING SURG 11/01/2019 TAVON SUGGS MD Ot Z95. 5 PRESENCE OF CORONARY ANGIOPLASTY IMPLANT 11/01/2019 AMAYA SEQUEIRA, KE Stephens Ot D64. 9 ANEMIA, UNSPECIFIED 11/01/2019 KE CONDE MD Ot R19. 5 OTHER FECAL ABNORMALITIES 11/01/2019 SALENA ASHLEY STATEMENT CLERKS MANAGER Ot N40. 1 BENIGN PROSTATIC HYPERPLASIA WITH LOWER 11/01/2019 TIAGO SEQUEIRA, NAHOMY Ot C67.9 MALIGNANT NEOPLASM OF [place], UNSPECIFI 11/01/2019 TIAGO SEQUEIRA, NAHOMY Ot J43.9 EMPHYSEMA, UNSPECIFIED 11/01/2019 TIAGO SEQUEIRA, NAHOMY Ot Z98.890 OTHER SPECIFIED POSTPROCEDURAL STATES 11/01/2019 Ot C18.2 JEMAL GNANT NEOPLASM OF ASCENDING COLON 11/01/2019 Ot C77.2 SECO NDARY AND UNSP MALIGNANT NEOPLASM OF 11/01/2019 Ot D64.9 ANEM IA, UNSPECIFIED 11/01/2019 Ot E11.9 TYPE 2 DIABETES MELLITUS WITHOUT COMPLIC 11/01/2019 Ot I10 ESSENT IAL (PRIMARY) HYPERTENSION 11/01/2019 Ot I25.10 ATH SCL HEART DISEASE OF [place] CORONARY 11/01/2019 Ot Z79.82 MERE G TERM (CURRENT) 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 11/01/2019 Ot Z79.84 MERE G TERM (CURRENT) USE OF ORAL HYPOGLYC 11/01/2019 Ot Z79.899 OT HER [facility] (CURRENT) DRUG THERAPY 11/01/2019 Ot Z85.51 PER ROBERT HISTORY OF MALIGNANT NEOPLASM O 11/01/2019 KATHY SEQUEIRA, SAVANAH Murrell Ot E11.65 TYPE 2 DIABETES MELLITUS WITH HYPERGLYCE 11/01/2019 AMAYA SEQUEIRA, KE Stephens Ot D50. 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 11/01/2019 TAVON SUGGS MD Ot E11. 9 TYPE 2 DIABETES MELLITUS WITHOUT COMPLIC 11/01/2019 TAVON SUGGS MD Ot I10 ESSENTIAL (PRIMARY) HYPERTENSION 11/01/2019 TAVON SUGGS MD Ot I25. 10 ATHSCL HEART DISEASE OF [place] CORONARY 11/01/2019 TAVON SUGGS MD Ot R55 SYNCOPE AND COLLAPSE 11/01/2019 KE CONDE MD Ot D53. 9 NUTRITIONAL ANEMIA, UNSPECIFIED 11/01/2019 TIAGO SEQUEIRA, NAHOMY Ot C18.2 MALIGNANT NEOPLASM OF ASCENDING COLON 11/01/2019 TIAGO SEQUEIRA, NAHOMY Ot C67.9 MALIGNANT NEOPLASM OF [place], UNSPECIFI 11/01/2019 NAHOMY ORDOÑEZ MD Ot C77.2 SECONDARY AND UNSP MALIGNANT NEOPLASM OF 11/01/2019 NAHOMY ORDOÑEZ MD Ot D64.81 ANEMIA DUE TO ANTINEOPLASTIC CHEMOTHERAP 11/01/2019 NAHOMY ORDOÑEZ MD Ot E11.9 TYPE 2 DIABETES MELLITUS WITHOUT COMPLIC 11/01/2019 NAHOMY ORDOÑEZ MD Ot I10 ESSENTIAL (PRIMARY) HYPERTENSION 11/01/2019 NAHOMY ORDOÑEZ MD Ot I25.10 ATHSCL HEART DISEASE OF [place] CORONARY 11/01/2019 NAHOMY ORDOÑEZ MD Ot I65.29 OCCLUSION AND STENOSIS OF UNSPECIFIED CA 11/01/2019 NAHOMY ORDOÑEZ MD Ot Z79.82 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 11/01/2019 NAHOMY ORDOÑEZ MD, Ot 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 11/01/2019 NAHOMY ORDOÑEZ MD, Ot Z79.899 OTHER UNION LABORER (CURRENT) DRUG THERAPY 11/01/2019 NAHOMY ORDOÑEZ MD Ot Z80.9 FAMILY HISTORY OF MALIGNANT NEOPLASM, UN 11/01/2019 NAHOMY ORDOÑEZ MD Ot Z87.891 PERSONAL HISTORY OF NICOTINE DEPENDENCE 11/01/2019 NAHOMY ORDOÑEZ MD Ot Z90.49 ACQUIRED ABSENCE OF OTHER SPECIFIED PART 11/01/2019 NAHOMY RODOÑEZ MD Ot Z98.61 CORONARY ANGIOPLASTY STATUS 11/01/2019 Ot C18.2 JEMAL GNANT NEOPLASM OF ASCENDING COLON 11/01/2019 Ot C67.9 JEMAL GNANT NEOPLASM OF BL[place], UNSPECIFI 11/01/2019 Ot C77.2 SECO NDARY AND UNSP MALIGNANT NEOPLASM OF 11/01/2019 Ot D64.81 ANE ROXY DUE TO ANTINEOPLASTIC CHEMOTHERAP 11/01/2019 Ot E11.9 TYPE 2 DIABETES MELLITUS WITHOUT COMPLIC 11/01/2019 Ot I10 ESSENT IAL (PRIMARY) HYPERTENSION 11/01/2019 Ot I25.10 ATH SCL HEART DISEASE OF [place] CORONARY 11/01/2019 Ot I44.30 UNS PECIFIED ATRIOVENTRICULAR BLOCK 11/01/2019 Ot I65.29 OCC LUSION AND STENOSIS OF UNSPECIFIED CA 11/01/2019 Ot I95.9 HYPO TENSION, UNSPECIFIED 11/01/2019 Ot K11.20 CHRISTIANA LOADENITIS, UNSPECIFIED 11/01/2019 Ot K92.2 LLUVIA ROINTESTINAL HEMORRHAGE, UNSPECIFIED 11/01/2019 Ot Z79.82 MERE G TERM (CURRENT) 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 11/01/2019 Ot Z79.84 MERE G TERM (CURRENT) USE OF ORAL HYPOGLYC 11/01/2019 Ot Z79.899 OT HER [facility] (CURRENT) DRUG THERAPY 11/01/2019 Ot Z80.9 FAMI LY HISTORY OF MALIGNANT NEOPLASM, UN 11/01/2019 Ot Z87.891 PE RSONAL HISTORY OF NICOTINE DEPENDENCE 11/01/2019 Ot Z90.49 ACQ UIRED ABSENCE OF OTHER SPECIFIED PART 11/01/2019 Ot Z98.61 COR ONARY ANGIOPLASTY STATUS 11/19/2019 KATHY SEQUEIRA, NASRISA E Ot E11.65 TYPE 2 DIABETES MELLITUS WITH HYPERGLYCE 11/27/2019 [facility]812 ENCOUNTER FOR PREPROCEDURAL LABORATORY E 11/27/2019 [facility] Ot Z11. 59 ENCOUNTER FOR SCREENING FOR OTHER VIRAL 11/27/2019 [facility] Ot Z85.038 PERSONAL HISTORY OF MALIGNANT NEOPLASM O 11/28/2019 [facility] Ot Z01.812 ENCOUNTER FOR PREPROCEDURAL LABORATORY E 11/28/2019 [facility] Ot Z11. 59 ENCOUNTER FOR SCREENING FOR OTHER VIRAL 11/28/2019 [facility] Ot Z85.038 PERSONAL HISTORY OF MALIGNANT NEOPLASM O Procedures Code Description Performed By [place] [id number] DI LATION OF CORONARY ARTERY, TWO ARTERIE 07/06/2018 [id number] ME ASURE OF CARDIAC SAMPL PRESSURE, L H 07/06/2018 [id number] FL UOROSCOPY OF MULT COR ART USING L OSM 07/06/2018 [id number] FL UOROSCOPY OF LEFT HEART USING LOW OSMO 07/06/2018 [id number] RE SECTION OF ILEUM, OPEN APPROACH 10/09/2018 [id number] RE SECTION OF RIGHT LARGE INTESTINE, OPEN 10/09/2018 [id number] RE SECTION OF APPENDIX, OPEN APPROACH 10/09/2018 [id number] DI LATION OF 1 COR ART WITH DRUG-ELUT INT 12/12/2018 [id number] ME ASURE OF CARDIAC SAMPL PRESSURE, L H 12/12/2018 [id number] FL UOROSCOPY OF MULT COR ART USING L OSM 12/12/2018 [id number] FL UOROSCOPY OF LEFT HEART USING LOW OSMO 12/12/2018 [id number] EX CISION OF STOMACH, PYLORUS, ENDO, DIAG 01/24/2019 [id number] IN SPECTION OF LOWER INTESTINAL TRACT, EN 01/24/2019 Results Test Result Range Blood lactic acid measurement (moles/vol ume) - 07/04/18 14:46 Blood lactic acid measurement (moles/volume) 2.59 mmol/L 0.50-2.00 Serum or plasma troponin i.cardiac measu rement (mass/volume) - 07/04/18 14:46 Serum or plasma troponin i.cardiac measurement (mass/v olume) < ng/mL <0.30 Whole blood basic metabolic panel - 06/16 04/03 14:46 Serum or plasma sodium measurement (moles/volume) 134 mmol/L 135-145 Serum or plasma potassium measurement (moles/volume) 4.4 mmol/L 3.6-5.0 Serum or plasma chloride measurement (moles/volume) 105 mmol/L 98-107 Carbon dioxide 17 mmol/L 21-32 Serum or plasma anion gap determination (moles/volume) 12 mmol/L 5-14 Serum or plasma urea nitrogen measurement (mass/volume ) 16 mg/dL 7-18 Serum or plasma creatinine measurement (mass/volume) 1.35 mg/dL 0.60-1.30 Serum or plasma urea nitrogen/creatinine mass ratio 12 NRG Serum or plasma creatinine measurement w ith calculation of estimated glomerular filtration rate 52 NRG Serum or plasma glucose measurement (mass/volume) 150 mg/dL 70-105 Serum or plasma calcium measurement (mass/volume) 8.9 mg/dL 8.5-10.1 Bacterial blood culture - 07/04/18 14:46 Bacterial blood culture NG NRG Capillary blood glucose measurement by g lucometer (mass/volume) - 07/04/18 14:49 Capillary blood glucose measurement by glucometer (mas s/volume) 148 mg/dL 70-110 Bacterial blood culture - 07/04/18 14:55 Bacterial blood culture NG NRG Methicillin resistant Staphylococcus aur eus (MRSA) screening culture - 07/04/18 15:34 Methicillin resistant Staphylococcus aureus (MRSA) scr eening culture NEG NRG Serum or plasma lactate measurement (mol es/volume) - 07/04/18 17:00 Serum or plasma lactate measurement (moles/volume) 1.10 mmol/L 0.50-2.00 Capillary blood glucose measurement by g lucometer (mass/volume) - 07/04/18 21:40 Capillary blood glucose measurement by glucometer (mas s/volume) 184 mg/dL 70-110 Complete blood count (CBC) with automate d white blood cell (WBC) differential - 07/05/18 03:19 Blood leukocytes automated count (number/volume) 7.1 10*3/uL 4.3-11.0 Blood erythrocytes automated count (number/volume) 3.37 10*6/uL 4.35-5.85 Venous blood hemoglobin measurement (mass/volume) 9.7 g/dL 13.3-17.7 Blood hematocrit (volume fraction) 29 % 40-54 Automated erythrocyte mean corpuscular volume 87 [ foz_us] 80-99 Automated erythrocyte mean corpuscular h emoglobin (mass per erythrocyte) 29 pg 25-34 Automated erythrocyte mean corpuscular h emoglobin concentration measurement (mass/volume) 33 g/dL 32-36 Automated erythrocyte distribution width ratio 13. 6 % 10.0- 14.5 Automated blood platelet count (count/volume) 325 10*3/uL 130-400 Automated blood platelet mean volume measurement 8.5 [foz_us] 7.4-10.4 Automated blood neutrophils/100 leukocytes 59 % 42-75 Automated blood lymphocytes/100 leukocytes 31 % 12-44 Blood monocytes/100 leukocytes 8 % 0-12 Automated blood eosinophils/100 leukocytes 2 % 0-10 Automated blood basophils/100 leukocytes 0 % 0-10 Blood neutrophils automated count (number/volume) 4.2 10*3 1.8-7.8 Blood lymphocytes automated count (number/volume) 2.2 10*3 1.0-4.0 Blood monocytes automated count (number/volume) 0. 5 10*3 0.0-1.0 Automated eosinophil count 0.2 10*3/uL 0 .0-0.3 Automated blood basophil count (count/volume) 0.0 10*3/uL 0.0-0.1 PT panel in platelet poor plasma by coag ulation assay - 07/05/18 03:19 Prothrombin time (PT) in platelet poor plasma by coagu lation assay 27.9 s 12.2-14.7 INR in platelet poor plasma or blood by coagulation as say 2.6 0.8-1.4 Whole blood basic metabolic panel - 06/17 03:19 Serum or plasma sodium measurement (moles/volume) 136 mmol/L 135-145 Serum or plasma potassium measurement (moles/volume) 4.1 mmol/L 3.6-5.0 Serum or plasma chloride measurement (moles/volume) 106 mmol/L 98-107 Carbon dioxide 20 mmol/L 21-32 Serum or plasma anion gap determination (moles/volume) 10 mmol/L 5-14 Serum or plasma urea nitrogen measurement (mass/volume ) 14 mg/dL 7-18 Serum or plasma creatinine measurement (mass/volume) 1.12 mg/dL 0.60-1.30 Serum or plasma urea nitrogen/creatinine mass ratio 13 NRG Serum or plasma creatinine measurement w ith calculation of estimated glomerular filtration rate > NRG Serum or plasma glucose measurement (mass/volume) 145 mg/dL 70-105 Serum or plasma calcium measurement (mass/volume) 7.9 mg/dL 8.5-10.1 Serum or plasma phosphate measurement (m ass/volume) - 07/05/18 03:19 Serum or plasma phosphate measurement (mass/volume) 2.9 mg/dL 2.3-4.7 Magnesium - 07/05/18 03:19 Magnesium 1.7 mg/dL 1.8-2.4 Comprehensive metabolic panel - 07/05/18 03:19 Serum or plasma sodium measurement (moles/volume) 136 mmol/L 135-145 Serum or plasma potassium measurement (moles/volume) 4.1 mmol/L 3.6-5.0 Serum or plasma chloride measurement (moles/volume) 106 mmol/L 98-107 Carbon dioxide 21 mmol/L 21-32 Serum or plasma anion gap determination (moles/volume) 9 mmol/L 5-14 Serum or plasma urea nitrogen measurement (mass/volume ) 14 mg/dL 7-18 Serum or plasma creatinine measurement (mass/volume) 1.10 mg/dL 0.60-1.30 Serum or plasma urea nitrogen/creatinine mass ratio 13 NRG Serum or plasma creatinine measurement w ith calculation of estimated glomerular filtration rate > NRG Serum or plasma glucose measurement (mass/volume) 146 mg/dL 70-105 Serum or plasma calcium measurement (mass/volume) 8.1 mg/dL 8.5-10.1 Serum or plasma total bilirubin measurement (mass/volu me) 0.2 mg/dL 0.1-1.0 Serum or plasma alkaline phosphatase stuart surement (enzymatic activity/volume) 45 U/L 40-136 Serum or plasma aspartate aminotransfera se measurement (enzymatic activity/volume) 13 U/L 5-34 Serum or plasma alanine aminotransferase measurement (enzymatic activity/volume) 14 U/L 0-55 Serum or plasma protein measurement (mass/volume) 6.3 g/dL 6.4-8.2 Serum or plasma albumin measurement (mass/volume) 3.3 g/dL 3.2-4.5 CALCIUM CORRECTED 8.7 mg/dL 8.5-10.1 Serum or plasma troponin i.cardiac measu rement (mass/volume) - 07/05/18 03:19 Serum or plasma troponin i.cardiac measurement (mass/v olume) < ng/mL <0.30 Lipid 1996 panel - 07/05/18 03:19 Serum or plasma triglyceride measurement (mass/volume) 95 mg/dL <150 Serum or plasma cholesterol measurement (mass/volume) 103 mg/dL < 200 Serum or plasma cholesterol in HDL measurement (mass/v olume) 29 mg/dL 40-60 Cholesterol in LDL [mass/volume] in serum or plasma by direct assay 59 mg/dL 1-129 Serum or plasma cholesterol in VLDL measurement (mass/ volume) 19 mg/dL 5-40 Capillary blood glucose measurement by g lucometer (mass/volume) - 07/05/18 10:31 Capillary blood glucose measurement by glucometer (mas s/volume) 254 mg/dL 70-110 Capillary blood glucose measurement by g lucometer (mass/volume) - 07/05/18 15:48 Capillary blood glucose measurement by glucometer (mas s/volume) 178 mg/dL 70-110 Capillary blood glucose measurement by g lucometer (mass/volume) - 07/05/18 20:05 Capillary blood glucose measurement by glucometer (mas s/volume) 228 mg/dL 70-110 Complete blood count (CBC) with automate d white blood cell (WBC) differential - 07/06/18 04:05 Blood leukocytes automated count (number/volume) 8.1 10*3/uL 4.3-11.0 Blood erythrocytes automated count (number/volume) 3.37 10*6/uL 4.35-5.85 Venous blood hemoglobin measurement (mass/volume) 9.6 g/dL 13.3-17.7 Blood hematocrit (volume fraction) 30 % 40-54 Automated erythrocyte mean corpuscular volume 88 [ foz_us] 80-99 Automated erythrocyte mean corpuscular h emoglobin (mass per erythrocyte) 29 pg 25-34 Automated erythrocyte mean corpuscular h emoglobin concentration measurement (mass/volume) 32 g/dL 32-36 Automated erythrocyte distribution width ratio 13. 3 % 10.0- 14.5 Automated blood platelet count (count/volume) 286 10*3/uL 130-400 Automated blood platelet mean volume measurement 9.2 [foz_us] 7.4-10.4 Automated blood neutrophils/100 leukocytes 61 % 42-75 Automated blood lymphocytes/100 leukocytes 29 % 12-44 Blood monocytes/100 leukocytes 7 % 0-12 Automated blood eosinophils/100 leukocytes 3 % 0-10 Automated blood basophils/100 leukocytes 0 % 0-10 Blood neutrophils automated count (number/volume) 4.9 10*3 1.8-7.8 Blood lymphocytes automated count (number/volume) 2.3 10*3 1.0-4.0 Blood monocytes automated count (number/volume) 0. 6 10*3 0.0-1.0 Automated eosinophil count 0.2 10*3/uL 0 .0-0.3 Automated blood basophil count (count/volume) 0.0 10*3/uL 0.0-0.1 Whole blood basic metabolic panel - 06/17 08/03 04:05 Serum or plasma sodium measurement (moles/volume) 131 mmol/L 135-145 Serum or plasma potassium measurement (moles/volume) 4.4 mmol/L 3.6-5.0 Serum or plasma chloride measurement (moles/volume) 103 mmol/L 98-107 Carbon dioxide 18 mmol/L 21-32 Serum or plasma anion gap determination (moles/volume) 10 mmol/L 5-14 Serum or plasma urea nitrogen measurement (mass/volume ) 12 mg/dL 7-18 Serum or plasma creatinine measurement (mass/volume) 1.05 mg/dL 0.60-1.30 Serum or plasma urea nitrogen/creatinine mass ratio 11 NRG Serum or plasma creatinine measurement w ith calculation of estimated glomerular filtration rate > NRG Serum or plasma glucose measurement (mass/volume) 191 mg/dL 70-105 Serum or plasma calcium measurement (mass/volume) 8.3 mg/dL 8.5-10.1 PT panel in platelet poor plasma by coag ulation assay - 07/06/18 04:05 Prothrombin time (PT) in platelet poor plasma by coagu lation assay 22.5 s 12.2-14.7 INR in platelet poor plasma or blood by coagulation as say 2.0 0.8-1.4 Capillary blood glucose measurement by g lucometer (mass/volume) - 07/06/18 05:32 Capillary blood glucose measurement by glucometer (mas s/volume) 175 mg/dL 70-110 Capillary blood glucose measurement by g lucometer (mass/volume) - 07/06/18 14:00 Capillary blood glucose measurement by glucometer (mas s/volume) 170 mg/dL 70-110 Capillary blood glucose measurement by g lucometer (mass/volume) - 07/06/18 16:44 Capillary blood glucose measurement by glucometer (mas s/volume) 161 mg/dL 70-110 Capillary blood glucose measurement by g lucometer (mass/volume) - 07/06/18 21:22 Capillary blood glucose measurement by glucometer (mas s/volume) 245 mg/dL 70-110 Complete blood count (CBC) with automate d white blood cell (WBC) differential - 07/07/18 03:13 Blood leukocytes automated count (number/volume) 6.8 10*3/uL 4.3-11.0 Blood erythrocytes automated count (number/volume) 3.34 10*6/uL 4.35-5.85 Venous blood hemoglobin measurement (mass/volume) 9.5 g/dL 13.3-17.7 Blood hematocrit (volume fraction) 29 % 40-54 Automated erythrocyte mean corpuscular volume 87 [ foz_us] 80-99 Automated erythrocyte mean corpuscular h emoglobin (mass per erythrocyte) 28 pg 25-34 Automated erythrocyte mean corpuscular h emoglobin concentration measurement (mass/volume) 33 g/dL 32-36 Automated erythrocyte distribution width ratio 13. 5 % 10.0- 14.5 Automated blood platelet count (count/volume) 330 10*3/uL 130-400 Automated blood platelet mean volume measurement 8.8 [foz_us] 7.4-10.4 Automated blood neutrophils/100 leukocytes 64 % 42-75 Automated blood lymphocytes/100 leukocytes 24 % 12-44 Blood monocytes/100 leukocytes 8 % 0-12 Automated blood eosinophils/100 leukocytes 3 % 0-10 Automated blood basophils/100 leukocytes 0 % 0-10 Blood neutrophils automated count (number/volume) 4.3 10*3 1.8-7.8 Blood lymphocytes automated count (number/volume) 1.7 10*3 1.0-4.0 Blood monocytes automated count (number/volume) 0. 6 10*3 0.0-1.0 Automated eosinophil count 0.2 10*3/uL 0 .0-0.3 Automated blood basophil count (count/volume) 0.0 10*3/uL 0.0-0.1 Whole blood basic metabolic panel - 06/17 09/03 03:13 Serum or plasma sodium measurement (moles/volume) 136 mmol/L 135-145 Serum or plasma potassium measurement (moles/volume) 4.2 mmol/L 3.6-5.0 Serum or plasma chloride measurement (moles/volume) 105 mmol/L 98-107 Carbon dioxide 22 mmol/L 21-32 Serum or plasma anion gap determination (moles/volume) 9 mmol/L 5-14 Serum or plasma urea nitrogen measurement (mass/volume ) 9 mg/dL 7-18 Serum or plasma creatinine measurement (mass/volume) 0.94 mg/dL 0.60-1.30 Serum or plasma urea nitrogen/creatinine mass ratio 10 NRG Serum or plasma creatinine measurement w ith calculation of estimated glomerular filtration rate > NRG Serum or plasma glucose measurement (mass/volume) 144 mg/dL 70-105 Serum or plasma calcium measurement (mass/volume) 8.3 mg/dL 8.5-10.1 PT panel in platelet poor plasma by coag ulation assay - 07/07/18 03:13 Prothrombin time (PT) in platelet poor plasma by coagu lation assay 18.8 s 12.2-14.7 INR in platelet poor plasma or blood by coagulation as say 1.6 0.8-1.4 Methicillin resistant Staphylococcus aur eus (MRSA) screening culture - 07/26/18 13:45 Methicillin resistant Staphylococcus aureus (MRSA) scr eening culture NEG NRG Complete blood count (CBC) with automate d white blood cell (WBC) differential - 07/26/18 14:00 Blood leukocytes automated count (number/volume) 7.3 10*3/uL 4.3-11.0 Blood erythrocytes automated count (number/volume) 3.25 10*6/uL 4.35-5.85 Venous blood hemoglobin measurement (mass/volume) 8.8 g/dL 13.3-17.7 Blood hematocrit (volume fraction) 28 % 40-54 Automated erythrocyte mean corpuscular volume 86 [ foz_us] 80-99 Automated erythrocyte mean corpuscular h emoglobin (mass per erythrocyte) 27 pg 25-34 Automated erythrocyte mean corpuscular h emoglobin concentration measurement (mass/volume) 31 g/dL 32-36 Automated erythrocyte distribution width ratio 14. 1 % 10.0- 14.5 Automated blood platelet count (count/volume) 361 10*3/uL 130-400 Automated blood platelet mean volume measurement 8.8 [foz_us] 7.4-10.4 Automated blood neutrophils/100 leukocytes 65 % 42-75 Automated blood lymphocytes/100 leukocytes 28 % 12-44 Blood monocytes/100 leukocytes 6 % 0-12 Automated blood eosinophils/100 leukocytes 2 % 0-10 Automated blood basophils/100 leukocytes 1 % 0-10 Blood neutrophils automated count (number/volume) 4.7 10*3 1.8-7.8 Blood lymphocytes automated count (number/volume) 2.0 10*3 1.0-4.0 Blood monocytes automated count (number/volume) 0. 4 10*3 0.0-1.0 Automated eosinophil count 0.1 10*3/uL 0 .0-0.3 Automated blood basophil count (count/volume) 0.0 10*3/uL 0.0-0.1 PT panel in platelet poor plasma by coag ulation assay - 07/26/18 14:00 Prothrombin time (PT) in platelet poor plasma by coagu lation assay 27.0 s 12.2-14.7 INR in platelet poor plasma or blood by coagulation as say 2.5 0.8-1.4 Comprehensive metabolic panel - 07/26/18 14:00 Serum or plasma sodium measurement (moles/volume) 134 mmol/L 135-145 Serum or plasma potassium measurement (moles/volume) 4.3 mmol/L 3.6-5.0 Serum or plasma chloride measurement (moles/volume) 103 mmol/L 98-107 Carbon dioxide 23 mmol/L 21-32 Serum or plasma anion gap determination (moles/volume) 8 mmol/L 5-14 Serum or plasma urea nitrogen measurement (mass/volume ) 14 mg/dL 7-18 Serum or plasma creatinine measurement (mass/volume) 1.09 mg/dL 0.60-1.30 Serum or plasma urea nitrogen/creatinine mass ratio 13 NRG Serum or plasma creatinine measurement w ith calculation of estimated glomerular filtration rate > NRG Serum or plasma glucose measurement (mass/volume) 98 mg/dL 70-105 Serum or plasma calcium measurement (mass/volume) 9.0 mg/dL 8.5-10.1 Serum or plasma total bilirubin measurement (mass/volu me) 0.3 mg/dL 0.1-1.0 Serum or plasma alkaline phosphatase stuart surement (enzymatic activity/volume) 56 U/L 40-136 Serum or plasma aspartate aminotransfera se measurement (enzymatic activity/volume) 15 U/L 5-34 Serum or plasma alanine aminotransferase measurement (enzymatic activity/volume) 11 U/L 0-55 Serum or plasma protein measurement (mass/volume) 7.5 g/dL 6.4-8.2 Serum or plasma albumin measurement (mass/volume) 3.9 g/dL 3.2-4.5 CALCIUM CORRECTED 9.1 mg/dL 8.5-10.1 RED CELLS LEUKO REDUCED AS1 - 07/26/18 1 4:00 RED CELLS LEUKO REDUCED AS1 N OT AVAILABLE [facility] Blood type T Indirect antibody screen [facility] - 07/26/18 14:00 ABO+Rh group AP [facility] Transfusion band number [id number] [facility] Blood group antibody screen NEGATIVE NR Whole blood hemoglobin and hematocrit [facility] - 07/26/18 18:40 Venous blood hemoglobin measurement (mass/volume) 9.2 g/dL 13.3-17.7 Blood hematocrit (volume fraction) 28 % 40-54 Capillary blood glucose measurement by g lucometer (mass/volume) - 07/26/18 21:31 Capillary blood glucose measurement by glucometer (mas s/volume) 198 mg/dL 70-110 Complete blood count (CBC) with automate d white blood cell (WBC) differential - 07/27/18 03:15 Blood leukocytes automated count (number/volume) 6.4 10*3/uL 4.3-11.0 Blood erythrocytes automated count (number/volume) 3.25 10*6/uL 4.35-5.85 Venous blood hemoglobin measurement (mass/volume) 8.9 g/dL 13.3-17.7 Blood hematocrit (volume fraction) 28 % 40-54 Automated erythrocyte mean corpuscular volume 85 [ foz_us] 80-99 Automated erythrocyte mean corpuscular h emoglobin (mass per erythrocyte) 27 pg 25-34 Automated erythrocyte mean corpuscular h emoglobin concentration measurement (mass/volume) 32 g/dL 32-36 Automated erythrocyte distribution width ratio 14. 0 % 10.0- 14.5 Automated blood platelet count (count/volume) 306 10*3/uL 130-400 Automated blood platelet mean volume measurement 9.3 [foz_us] 7.4-10.4 Automated blood neutrophils/100 leukocytes 54 % 42-75 Automated blood lymphocytes/100 leukocytes 36 % 12-44 Blood monocytes/100 leukocytes 8 % 0-12 Automated blood eosinophils/100 leukocytes 2 % 0-10 Automated blood basophils/100 leukocytes 0 % 0-10 Blood neutrophils automated count (number/volume) 3.4 10*3 1.8-7.8 Blood lymphocytes automated count (number/volume) 2.3 10*3 1.0-4.0 Blood monocytes automated count (number/volume) 0. 5 10*3 0.0-1.0 Automated eosinophil count 0.2 10*3/uL 0 .0-0.3 Automated blood basophil count (count/volume) 0.0 10*3/uL 0.0-0.1 Comprehensive metabolic panel - 07/27/18 03:15 Serum or plasma sodium measurement (moles/volume) 135 mmol/L 135-145 Serum or plasma potassium measurement (moles/volume) 4.0 mmol/L 3.6-5.0 Serum or plasma chloride measurement (moles/volume) 105 mmol/L 98-107 Carbon dioxide 22 mmol/L 21-32 Serum or plasma anion gap determination (moles/volume) 8 mmol/L 5-14 Serum or plasma urea nitrogen measurement (mass/volume ) 13 mg/dL 7-18 Serum or plasma creatinine measurement (mass/volume) 1.04 mg/dL 0.60-1.30 Serum or plasma urea nitrogen/creatinine mass ratio 13 NRG Serum or plasma creatinine measurement w ith calculation of estimated glomerular filtration rate > NRG Serum or plasma glucose measurement (mass/volume) 98 mg/dL 70-105 Serum or plasma calcium measurement (mass/volume) 8.7 mg/dL 8.5-10.1 Serum or plasma total bilirubin measurement (mass/volu me) 0.4 mg/dL 0.1-1.0 Serum or plasma alkaline phosphatase stuart surement (enzymatic activity/volume) 54 U/L 40-136 Serum or plasma aspartate aminotransfera se measurement (enzymatic activity/volume) 15 U/L 5-34 Serum or plasma alanine aminotransferase measurement (enzymatic activity/volume) 11 U/L 0-55 Serum or plasma protein measurement (mass/volume) 6.6 g/dL 6.4-8.2 Serum or plasma albumin measurement (mass/volume) 3.4 g/dL 3.2-4.5 CALCIUM CORRECTED 9.2 mg/dL 8.5-10.1 Serum or plasma phosphate measurement (m ass/volume) - 07/27/18 03:15 Serum or plasma phosphate measurement (mass/volume) 3.6 mg/dL 2.3-4.7 Magnesium - 07/27/18 03:15 Magnesium 1.6 mg/dL 1.8-2.4 PT panel in platelet poor plasma by coag ulation assay - 07/27/18 06:20 Prothrombin time (PT) in platelet poor plasma by coagu lation assay 24.4 s 12.2-14.7 INR in platelet poor plasma or blood by coagulation as say 2.2 0.8-1.4 Capillary blood glucose measurement by g lucometer (mass/volume) - 07/27/18 11:28 Capillary blood glucose measurement by glucometer (mas s/volume) 199 mg/dL 70-110 Capillary blood glucose measurement by g lucometer (mass/volume) - 07/27/18 16:38 Capillary blood glucose measurement by glucometer (mas s/volume) 175 mg/dL 70-110 Capillary blood glucose measurement by g lucometer (mass/volume) - 07/27/18 20:03 Capillary blood glucose measurement by glucometer (mas s/volume) 178 mg/dL 70-110 Automated blood complete blood count (he mogram) panel - 07/28/18 04:25 Blood leukocytes automated count (number/volume) 5.9 10*3/uL 4.3-11.0 Blood erythrocytes automated count (number/volume) 3.30 10*6/uL 4.35-5.85 Venous blood hemoglobin measurement (mass/volume) 9.0 g/dL 13.3-17.7 Blood hematocrit (volume fraction) 28 % 40-54 Automated erythrocyte mean corpuscular volume 85 [ foz_us] 80-99 Automated erythrocyte mean corpuscular h emoglobin (mass per erythrocyte) 27 pg 25-34 Automated erythrocyte mean corpuscular h emoglobin concentration measurement (mass/volume) 32 g/dL 32-36 Automated erythrocyte distribution width ratio 14. 2 % 10.0- 14.5 Automated blood platelet count (count/volume) 336 10*3/uL 130-400 Automated blood platelet mean volume measurement 8.6 [foz_us] 7.4-10.4 Comprehensive metabolic panel - 07/28/18 04:25 Serum or plasma sodium measurement (moles/volume) 133 mmol/L 135-145 Serum or plasma potassium measurement (moles/volume) 4.1 mmol/L 3.6-5.0 Serum or plasma chloride measurement (moles/volume) 102 mmol/L 98-107 Carbon dioxide 21 mmol/L 21-32 Serum or plasma anion gap determination (moles/volume) 10 mmol/L 5-14 Serum or plasma urea nitrogen measurement (mass/volume ) 11 mg/dL 7-18 Serum or plasma creatinine measurement (mass/volume) 1.07 mg/dL 0.60-1.30 Serum or plasma urea nitrogen/creatinine mass ratio 10 NRG Serum or plasma creatinine measurement w ith calculation of estimated glomerular filtration rate > NRG Serum or plasma glucose measurement (mass/volume) 198 mg/dL 70-105 Serum or plasma calcium measurement (mass/volume) 8.5 mg/dL 8.5-10.1 Serum or plasma total bilirubin measurement (mass/volu me) 0.4 mg/dL 0.1-1.0 Serum or plasma alkaline phosphatase stuart surement (enzymatic activity/volume) 55 U/L 40-136 Serum or plasma aspartate aminotransfera se measurement (enzymatic activity/volume) 14 U/L 5-34 Serum or plasma alanine aminotransferase measurement (enzymatic activity/volume) 10 U/L 0-55 Serum or plasma protein measurement (mass/volume) 6.7 g/dL 6.4-8.2 Serum or plasma albumin measurement (mass/volume) 3.5 g/dL 3.2-4.5 CALCIUM CORRECTED 8.9 mg/dL 8.5-10.1 Capillary blood glucose measurement by g lucometer (mass/volume) - 07/28/18 05:16 Capillary blood glucose measurement by glucometer (mas s/volume) 197 mg/dL 70-110 Capillary blood glucose measurement by g lucometer (mass/volume) - 07/28/18 11:07 Capillary blood glucose measurement by glucometer (mas s/volume) 186 mg/dL 70-110 Capillary blood glucose measurement by g lucometer (mass/volume) - 09/11/18 13:29 Capillary blood glucose measurement by glucometer (mas s/volume) 212 mg/dL 70-110 Automated blood complete blood count (he mogram) panel - 09/25/18 10:35 Blood leukocytes automated count (number/volume) 7.7 10*3/uL 4.3-11.0 Blood erythrocytes automated count (number/volume) 3.41 10*6/uL 4.35-5.85 Venous blood hemoglobin measurement (mass/volume) 8.0 g/dL 13.3-17.7 Blood hematocrit (volume fraction) 27 % 40-54 Automated erythrocyte mean corpuscular volume 79 [ foz_us] 80-99 Automated erythrocyte mean corpuscular h emoglobin (mass per erythrocyte) 24 pg 25-34 Automated erythrocyte mean corpuscular h emoglobin concentration measurement (mass/volume) 30 g/dL 32-36 Automated erythrocyte distribution width ratio 14. 4 % 10.0- 14.5 Automated blood platelet count (count/volume) 464 10*3/uL 130-400 Automated blood platelet mean volume measurement 8.9 [foz_us] 7.4-10.4 Comprehensive metabolic panel - 09/25/18 10:35 Serum or plasma sodium measurement (moles/volume) 133 mmol/L 135-145 Serum or plasma potassium measurement (moles/volume) 4.5 mmol/L 3.6-5.0 Serum or plasma chloride measurement (moles/volume) 100 mmol/L 98-107 Carbon dioxide 22 mmol/L 21-32 Serum or plasma anion gap determination (moles/volume) 11 mmol/L 5-14 Serum or plasma urea nitrogen measurement (mass/volume ) 13 mg/dL 7-18 Serum or plasma creatinine measurement (mass/volume) 1.15 mg/dL 0.60-1.30 Serum or plasma urea nitrogen/creatinine mass ratio 11 NRG Serum or plasma creatinine measurement w ith calculation of estimated glomerular filtration rate > NRG Serum or plasma glucose measurement (mass/volume) 130 mg/dL 70-105 Serum or plasma calcium measurement (mass/volume) 9.4 mg/dL 8.5-10.1 Serum or plasma total bilirubin measurement (mass/volu me) 0.3 mg/dL 0.1-1.0 Serum or plasma alkaline phosphatase stuart surement (enzymatic activity/volume) 71 U/L 40-136 Serum or plasma aspartate aminotransfera se measurement (enzymatic activity/volume) 17 U/L 5-34 Serum or plasma alanine aminotransferase measurement (enzymatic activity/volume) 10 U/L 0-55 Serum or plasma protein measurement (mass/volume) 7.6 g/dL 6.4-8.2 Serum or plasma albumin measurement (mass/volume) 3.8 g/dL 3.2-4.5 CALCIUM CORRECTED 9.6 mg/dL 8.5-10.1 Serum ragweed IgE antibody assay - 09/25 10:35 [id number] 3.5 % 0.0-5.0 Methicillin resistant Staphylococcus aur eus (MRSA) screening culture - 10/04/18 12:20 Methicillin resistant Staphylococcus aureus (MRSA) scr eening culture NEG NRG Complete blood count (CBC) with automate d white blood cell (WBC) differential - 10/05/18 15:29 Blood leukocytes automated count (number/volume) 9.2 10*3/uL 4.3-11.0 Blood erythrocytes automated count (number/volume) 3.19 10*6/uL 4.35-5.85 Venous blood hemoglobin measurement (mass/volume) 7.5 g/dL 13.3-17.7 Blood hematocrit (volume fraction) 25 % 40-54 Automated erythrocyte mean corpuscular volume 77 [ foz_us] 80-99 Automated erythrocyte mean corpuscular h emoglobin (mass per erythrocyte) 24 pg 25-34 Automated erythrocyte mean corpuscular h emoglobin concentration measurement (mass/volume) 31 g/dL 32-36 Automated erythrocyte distribution width ratio 14. 4 % 10.0- 14.5 Automated blood platelet count (count/volume) 532 10*3/uL 130-400 Automated blood platelet mean volume measurement 8.9 [foz_us] 7.4-10.4 Automated blood neutrophils/100 leukocytes 64 % 42-75 Automated blood lymphocytes/100 leukocytes 27 % 12-44 Blood monocytes/100 leukocytes 5 % 0-12 Automated blood eosinophils/100 leukocytes 3 % 0-10 Automated blood basophils/100 leukocytes 0 % 0-10 Blood neutrophils automated count (number/volume) 5.9 10*3 1.8-7.8 Blood lymphocytes automated count (number/volume) 2.5 10*3 1.0-4.0 Blood monocytes automated count (number/volume) 0. 5 10*3 0.0-1.0 Automated eosinophil count 0.3 10*3/uL 0 .0-0.3 Automated blood basophil count (count/volume) 0.0 10*3/uL 0.0-0.1 Comprehensive metabolic panel - 10/05/18 15:29 Serum or plasma sodium measurement (moles/volume) 131 mmol/L 135-145 Serum or plasma potassium measurement (moles/volume) 4.3 mmol/L 3.6-5.0 Serum or plasma chloride measurement (moles/volume) 97 mmol/L 98-107 Carbon dioxide 25 mmol/L 21-32 Serum or plasma anion gap determination (moles/volume) 9 mmol/L 5-14 Serum or plasma urea nitrogen measurement (mass/volume ) 15 mg/dL 7-18 Serum or plasma creatinine measurement (mass/volume) 1.26 mg/dL 0.60-1.30 Serum or plasma urea nitrogen/creatinine mass ratio 12 NRG Serum or plasma creatinine measurement w ith calculation of estimated glomerular filtration rate 57 NRG Serum or plasma glucose measurement (mass/volume) 187 mg/dL 70-105 Serum or plasma calcium measurement (mass/volume) 9.3 mg/dL 8.5-10.1 Serum or plasma total bilirubin measurement (mass/volu me) 0.2 mg/dL 0.1-1.0 Serum or plasma alkaline phosphatase stuart surement (enzymatic activity/volume) 73 U/L 40-136 Serum or plasma aspartate aminotransfera se measurement (enzymatic activity/volume) 14 U/L 5-34 Serum or plasma alanine aminotransferase measurement (enzymatic activity/volume) 12 U/L 0-55 Serum or plasma protein measurement (mass/volume) 7.4 g/dL 6.4-8.2 Serum or plasma albumin measurement (mass/volume) 3.9 g/dL 3.2-4.5 CALCIUM CORRECTED 9.4 mg/dL 8.5-10.1 RED CELLS LEUKO REDUCED AS1 - 10/05/18 1 6:22 RED CELLS LEUKO REDUCED AS1 P RSMD TRFSD 10/05/182007 NRG Blood type T Indirect antibody screen pa yoshi - 10/05/18 16:22 ABO+Rh group AP NRG Transfusion band number [id number] NRG Blood group antibody screen NEGATIVE NR G Complete blood count (CBC) with automate d white blood cell (WBC) differential - 10/08/18 07:10 Blood leukocytes automated count (number/volume) 9.4 10*3/uL 4.3-11.0 Blood erythrocytes automated count (number/volume) 4.40 10*6/uL 4.35-5.85 Venous blood hemoglobin measurement (mass/volume) 10.6 g/dL 13.3-17.7 Blood hematocrit (volume fraction) 35 % 40-54 Automated erythrocyte mean corpuscular volume 79 [ foz_us] 80-99 Automated erythrocyte mean corpuscular h emoglobin (mass per erythrocyte) 24 pg 25-34 Automated erythrocyte mean corpuscular h emoglobin concentration measurement (mass/volume) 31 g/dL 32-36 Automated erythrocyte distribution width ratio 15. 2 % 10.0- 14.5 Automated blood platelet count (count/volume) 441 10*3/uL 130-400 Automated blood platelet mean volume measurement 8.7 [foz_us] 7.4-10.4 Automated blood neutrophils/100 leukocytes 67 % 42-75 Automated blood lymphocytes/100 leukocytes 23 % 12-44 Blood monocytes/100 leukocytes 6 % 0-12 Automated blood eosinophils/100 leukocytes 4 % 0-10 Automated blood basophils/100 leukocytes 0 % 0-10 Blood neutrophils automated count (number/volume) 6.3 10*3 1.8-7.8 Blood lymphocytes automated count (number/volume) 2.1 10*3 1.0-4.0 Blood monocytes automated count (number/volume) 0. 5 10*3 0.0-1.0 Automated eosinophil count 0.4 10*3/uL 0 .0-0.3 Automated blood basophil count (count/volume) 0.0 10*3/uL 0.0-0.1 TROPONIN T - 10/08/18 07:10 TROPONIN T 17 % <=15 Comprehensive metabolic panel - 10/08/18 07:10 Serum or plasma sodium measurement (moles/volume) 129 mmol/L 135-145 Serum or plasma potassium measurement (moles/volume) 4.7 mmol/L 3.6-5.0 Serum or plasma chloride measurement (moles/volume) 92 mmol/L 98-107 Carbon dioxide 15 mmol/L 21-32 Serum or plasma anion gap determination (moles/volume) 22 mmol/L 5-14 Serum or plasma urea nitrogen measurement (mass/volume ) 10 mg/dL 7-18 Serum or plasma creatinine measurement (mass/volume) 1.33 mg/dL 0.60-1.30 Serum or plasma urea nitrogen/creatinine mass ratio 8 NRG Serum or plasma creatinine measurement w ith calculation of estimated glomerular filtration rate 53 NRG Serum or plasma glucose measurement (mass/volume) 176 mg/dL 70-105 Serum or plasma calcium measurement (mass/volume) 9.4 mg/dL 8.5-10.1 Serum or plasma total bilirubin measurement (mass/volu me) 0.8 mg/dL 0.1-1.0 Serum or plasma alkaline phosphatase stuart surement (enzymatic activity/volume) 81 U/L 40-136 Serum or plasma aspartate aminotransfera se measurement (enzymatic activity/volume) 17 U/L 5-34 Serum or plasma alanine aminotransferase measurement (enzymatic activity/volume) 14 U/L 0-55 Serum or plasma protein measurement (mass/volume) 8.2 g/dL 6.4-8.2 Serum or plasma albumin measurement (mass/volume) 4.0 g/dL 3.2-4.5 CALCIUM CORRECTED 9.4 mg/dL 8.5-10.1 Magnesium - 10/08/18 07:10 Magnesium 1.6 mg/dL 1.8-2.4 PT panel in platelet poor plasma by coag ulation assay - 10/08/18 07:10 Prothrombin time (PT) in platelet poor plasma by coagu lation assay 13.5 s 12.2-14.7 INR in platelet poor plasma or blood by coagulation as say 1.0 0.8-1.4 Serum or plasma troponin i.cardiac measu rement (mass/volume) - 10/08/18 10:35 Serum or plasma troponin i.cardiac measurement (mass/v olume) < ng/mL <0.028 Capillary blood glucose measurement by g lucometer (mass/volume) - 10/08/18 11:46 Capillary blood glucose measurement by glucometer (mas s/volume) 147 mg/dL 70-110 Serum or plasma troponin i.cardiac measu rement (mass/volume) - 10/08/18 15:04 Serum or plasma troponin i.cardiac measurement (mass/v olume) < ng/mL <0.028 Capillary blood glucose measurement by g lucometer (mass/volume) - 10/08/18 16:03 Capillary blood glucose measurement by glucometer (mas s/volume) 156 mg/dL 70-110 RED CELLS LEUKO REDUCED AS1 - 10/08/18 1 7:43 RED CELLS LEUKO REDUCED AS1 T RANSFUSED 10/10/18 1620 NRG Blood type T Indirect antibody screen pa yoshi - 10/08/18 17:43 ABO+Rh group AP NRG Transfusion band number [id number] NRG Blood group antibody screen NEGATIVE NR G Complete blood count (CBC) with automate d white blood cell (WBC) differential - 10/09/18 05:58 Blood leukocytes automated count (number/volume) 6.9 10*3/uL 4.3-11.0 Blood erythrocytes automated count (number/volume) 3.43 10*6/uL 4.35-5.85 Venous blood hemoglobin measurement (mass/volume) 8.5 g/dL 13.3-17.7 Blood hematocrit (volume fraction) 27 % 40-54 Automated erythrocyte mean corpuscular volume 79 [ foz_us] 80-99 Automated erythrocyte mean corpuscular h emoglobin (mass per erythrocyte) 25 pg 25-34 Automated erythrocyte mean corpuscular h emoglobin concentration measurement (mass/volume) 32 g/dL 32-36 Automated erythrocyte distribution width ratio 15. 7 % 10.0- 14.5 Automated blood platelet count (count/volume) 424 10*3/uL 130-400 Automated blood platelet mean volume measurement 8.6 [foz_us] 7.4-10.4 Automated blood neutrophils/100 leukocytes 57 % 42-75 Automated blood lymphocytes/100 leukocytes 31 % 12-44 Blood monocytes/100 leukocytes 6 % 0-12 Automated blood eosinophils/100 leukocytes 6 % 0-10 Automated blood basophils/100 leukocytes 0 % 0-10 Blood neutrophils automated count (number/volume) 3.9 10*3 1.8-7.8 Blood lymphocytes automated count (number/volume) 2.1 10*3 1.0-4.0 Blood monocytes automated count (number/volume) 0. 4 10*3 0.0-1.0 Automated eosinophil count 0.4 10*3/uL 0 .0-0.3 Automated blood basophil count (count/volume) 0.0 10*3/uL 0.0-0.1 Capillary blood glucose measurement by g lucometer (mass/volume) - 10/09/18 12:26 Capillary blood glucose measurement by glucometer (mas s/volume) 153 mg/dL 70-110 Capillary blood glucose measurement by g lucometer (mass/volume) - 10/09/18 15:19 Capillary blood glucose measurement by glucometer (mas s/volume) 168 mg/dL 70-110 Complete blood count (CBC) with automate d white blood cell (WBC) differential - 10/10/18 03:30 Blood leukocytes automated count (number/volume) 10.0 10*3/uL 4.3-11.0 Blood erythrocytes automated count (number/volume) 3.52 10*6/uL 4.35-5.85 Venous blood hemoglobin measurement (mass/volume) 8.5 g/dL 13.3-17.7 Blood hematocrit (volume fraction) 28 % 40-54 Automated erythrocyte mean corpuscular volume 79 [ foz_us] 80-99 Automated erythrocyte mean corpuscular h emoglobin (mass per erythrocyte) 24 pg 25-34 Automated erythrocyte mean corpuscular h emoglobin concentration measurement (mass/volume) 31 g/dL 32-36 Automated erythrocyte distribution width ratio 15. 4 % 10.0- 14.5 Automated blood platelet count (count/volume) 391 10*3/uL 130-400 Automated blood platelet mean volume measurement 9.0 [foz_us] 7.4-10.4 Automated blood neutrophils/100 leukocytes 80 % 42-75 Automated blood lymphocytes/100 leukocytes 15 % 12-44 Blood monocytes/100 leukocytes 4 % 0-12 Automated blood eosinophils/100 leukocytes 1 % 0-10 Automated blood basophils/100 leukocytes 0 % 0-10 Blood neutrophils automated count (number/volume) 8.1 10*3 1.8-7.8 Blood lymphocytes automated count (number/volume) 1.5 10*3 1.0-4.0 Blood monocytes automated count (number/volume) 0. 4 10*3 0.0-1.0 Automated eosinophil count 0.1 10*3/uL 0 .0-0.3 Automated blood basophil count (count/volume) 0.0 10*3/uL 0.0-0.1 Comprehensive metabolic panel - 10/10/18 03:30 Serum or plasma sodium measurement (moles/volume) 134 mmol/L 135-145 Serum or plasma potassium measurement (moles/volume) 4.2 mmol/L 3.6-5.0 Serum or plasma chloride measurement (moles/volume) 103 mmol/L 98-107 Carbon dioxide 21 mmol/L 21-32 Serum or plasma anion gap determination (moles/volume) 10 mmol/L 5-14 Serum or plasma urea nitrogen measurement (mass/volume ) 8 mg/dL 7-18 Serum or plasma creatinine measurement (mass/volume) 1.06 mg/dL 0.60-1.30 Serum or plasma urea nitrogen/creatinine mass ratio 8 NRG Serum or plasma creatinine measurement w ith calculation of estimated glomerular filtration rate > NRG Serum or plasma glucose measurement (mass/volume) 176 mg/dL 70-105 Serum or plasma calcium measurement (mass/volume) 8.2 mg/dL 8.5-10.1 Serum or plasma total bilirubin measurement (mass/volu me) 0.3 mg/dL 0.1-1.0 Serum or plasma alkaline phosphatase stuart surement (enzymatic activity/volume) 65 U/L 40-136 Serum or plasma aspartate aminotransfera se measurement (enzymatic activity/volume) 19 U/L 5-34 Serum or plasma alanine aminotransferase measurement (enzymatic activity/volume) 14 U/L 0-55 Serum or plasma protein measurement (mass/volume) 6.2 g/dL 6.4-8.2 Serum or plasma albumin measurement (mass/volume) 3.2 g/dL 3.2-4.5 CALCIUM CORRECTED 8.8 mg/dL 8.5-10.1 Magnesium - 10/10/18 03:30 Magnesium 1.4 mg/dL 1.8-2.4 Automated blood complete blood count ( mogram) panel - 10/11/18 05:15 Blood leukocytes automated count (number/volume) 8.4 10*3/uL 4.3-11.0 Blood erythrocytes automated count (number/volume) 3.37 10*6/uL 4.35-5.85 Venous blood hemoglobin measurement (mass/volume) 8.3 g/dL 13.3-17.7 Blood hematocrit (volume fraction) 26 % 40-54 Automated erythrocyte mean corpuscular volume 78 [ foz_us] 80-99 Automated erythrocyte mean corpuscular h emoglobin (mass per erythrocyte) 25 pg 25-34 Automated erythrocyte mean corpuscular h emoglobin concentration measurement (mass/volume) 32 g/dL 32-36 Automated erythrocyte distribution width ratio 15. 8 % 10.0- 14.5 Automated blood platelet count (count/volume) 316 10*3/uL 130-400 Automated blood platelet mean volume measurement 8.7 [foz_us] 7.4-10.4 Whole blood basic metabolic panel - 09/15 03/04 05:15 Serum or plasma sodium measurement (moles/volume) 130 mmol/L 135-145 Serum or plasma potassium measurement (moles/volume) 3.8 mmol/L 3.6-5.0 Serum or plasma chloride measurement (moles/volume) 104 mmol/L 98-107 Carbon dioxide 21 mmol/L 21-32 Serum or plasma anion gap determination (moles/volume) 5 mmol/L 5-14 Serum or plasma urea nitrogen measurement (mass/volume ) 6 mg/dL 7-18 Serum or plasma creatinine measurement (mass/volume) 0.87 mg/dL 0.60-1.30 Serum or plasma urea nitrogen/creatinine mass ratio 7 NRG Serum or plasma creatinine measurement w ith calculation of estimated glomerular filtration rate > NRG Serum or plasma glucose measurement (mass/volume) 159 mg/dL 70-105 Serum or plasma calcium measurement (mass/volume) 8.1 mg/dL 8.5-10.1 Magnesium - 10/11/18 05:15 Magnesium 1.4 mg/dL 1.8-2.4 Automated blood complete blood count ( mogram) panel - 10/12/18 05:20 Blood leukocytes automated count (number/volume) 7.2 10*3/uL 4.3-11.0 Blood erythrocytes automated count (number/volume) 3.92 10*6/uL 4.35-5.85 Venous blood hemoglobin measurement (mass/volume) 9.4 g/dL 13.3-17.7 Blood hematocrit (volume fraction) 30 % 40-54 Automated erythrocyte mean corpuscular volume 77 [ foz_us] 80-99 Automated erythrocyte mean corpuscular h emoglobin (mass per erythrocyte) 24 pg 25-34 Automated erythrocyte mean corpuscular h emoglobin concentration measurement (mass/volume) 31 g/dL 32-36 Automated erythrocyte distribution width ratio 15. 4 % 10.0- 14.5 Automated blood platelet count (count/volume) 327 10*3/uL 130-400 Automated blood platelet mean volume measurement 8.6 [foz_us] 7.4-10.4 Whole blood basic metabolic panel - 09/15 04/04 05:20 Serum or plasma sodium measurement (moles/volume) 134 mmol/L 135-145 Serum or plasma potassium measurement (moles/volume) 3.4 mmol/L 3.6-5.0 Serum or plasma chloride measurement (moles/volume) 101 mmol/L 98-107 Carbon dioxide 20 mmol/L 21-32 Serum or plasma anion gap determination (moles/volume) 13 mmol/L 5-14 Serum or plasma urea nitrogen measurement (mass/volume ) 4 mg/dL 7-18 Serum or plasma creatinine measurement (mass/volume) 0.85 mg/dL 0.60-1.30 Serum or plasma urea nitrogen/creatinine mass ratio 5 NRG Serum or plasma creatinine measurement w ith calculation of estimated glomerular filtration rate > NRG Serum or plasma glucose measurement (mass/volume) 171 mg/dL 70-105 Serum or plasma calcium measurement (mass/volume) 8.6 mg/dL 8.5-10.1 Magnesium - 10/12/18 05:20 Magnesium 1.8 mg/dL 1.8-2.4 Automated blood complete blood count (he mogram) panel - 10/13/18 03:50 Blood leukocytes automated count (number/volume) 7.2 10*3/uL 4.3-11.0 Blood erythrocytes automated count (number/volume) 4.15 10*6/uL 4.35-5.85 Venous blood hemoglobin measurement (mass/volume) 10.0 g/dL 13.3-17.7 Blood hematocrit (volume fraction) 32 % 40-54 Automated erythrocyte mean corpuscular volume 77 [ foz_us] 80-99 Automated erythrocyte mean corpuscular h emoglobin (mass per erythrocyte) 24 pg 25-34 Automated erythrocyte mean corpuscular h emoglobin concentration measurement (mass/volume) 31 g/dL 32-36 Automated erythrocyte distribution width ratio 16. 0 % 10.0- 14.5 Automated blood platelet count (count/volume) 392 10*3/uL 130-400 Automated blood platelet mean volume measurement 8.8 [foz_us] 7.4-10.4 Whole blood basic metabolic panel - 09/16 03:50 Serum or plasma sodium measurement (moles/volume) 134 mmol/L 135-145 Serum or plasma potassium measurement (moles/volume) 3.6 mmol/L 3.6-5.0 Serum or plasma chloride measurement (moles/volume) 103 mmol/L 98-107 Carbon dioxide 20 mmol/L 21-32 Serum or plasma anion gap determination (moles/volume) 11 mmol/L 5-14 Serum or plasma urea nitrogen measurement (mass/volume ) 5 mg/dL 7-18 Serum or plasma creatinine measurement (mass/volume) 1.03 mg/dL 0.60-1.30 Serum or plasma urea nitrogen/creatinine mass ratio 5 NRG Serum or plasma creatinine measurement w ith calculation of estimated glomerular filtration rate > NRG Serum or plasma glucose measurement (mass/volume) 167 mg/dL 70-105 Serum or plasma calcium measurement (mass/volume) 9.2 mg/dL 8.5-10.1 Magnesium - 10/13/18 03:50 Magnesium 1.8 mg/dL 1.8-2.4 Automated blood complete blood count (he mogram) panel - 10/14/18 06:50 Blood leukocytes automated count (number/volume) 6.8 10*3/uL 4.3-11.0 Blood erythrocytes automated count (number/volume) 3.97 10*6/uL 4.35-5.85 Venous blood hemoglobin measurement (mass/volume) 9.3 g/dL 13.3-17.7 Blood hematocrit (volume fraction) 31 % 40-54 Automated erythrocyte mean corpuscular volume 77 [ foz_us] 80-99 Automated erythrocyte mean corpuscular h emoglobin (mass per erythrocyte) 23 pg 25-34 Automated erythrocyte mean corpuscular h emoglobin concentration measurement (mass/volume) 31 g/dL 32-36 Automated erythrocyte distribution width ratio 15. 6 % 10.0- 14.5 Automated blood platelet count (count/volume) 386 10*3/uL 130-400 Automated blood platelet mean volume measurement 8.9 [foz_us] 7.4-10.4 Whole blood basic metabolic panel - 09/16 08/04 06:50 Serum or plasma sodium measurement (moles/volume) 134 mmol/L 135-145 Serum or plasma potassium measurement (moles/volume) 3.9 mmol/L 3.6-5.0 Serum or plasma chloride measurement (moles/volume) 105 mmol/L 98-107 Carbon dioxide 16 mmol/L 21-32 Serum or plasma anion gap determination (moles/volume) 13 mmol/L 5-14 Serum or plasma urea nitrogen measurement (mass/volume ) 5 mg/dL 7-18 Serum or plasma creatinine measurement (mass/volume) 0.85 mg/dL 0.60-1.30 Serum or plasma urea nitrogen/creatinine mass ratio 6 NRG Serum or plasma creatinine measurement w ith calculation of estimated glomerular filtration rate > NRG Serum or plasma glucose measurement (mass/volume) 182 mg/dL 70-105 Serum or plasma calcium measurement (mass/volume) 8.9 mg/dL 8.5-10.1 Magnesium - 10/14/18 06:50 Magnesium 1.7 mg/dL 1.8-2.4 A1C - 10/30/18 12:29 HEMOGLOBIN A1c 7.8 % of total Hgb <5.7 MICROALBUMIN/CREATININE RATIO, URINE - 0 11/08/18 08:53 CREATININE, RANDOM URINE 70 mg/dL 20-32 0 MICROALBUMIN 1.0 mg/dL See Note: MICROALBUMIN/CREATININE RATIO, RANDOM URINE 14 mcg /mg creat <30 Capillary blood glucose measurement by g lucometer (mass/volume) - 11/16/18 06:16 Capillary blood glucose measurement by glucometer (mas s/volume) 139 mg/dL 70-110 Methicillin resistant Staphylococcus aur eus (MRSA) screening culture - 11/16/18 06:19 Methicillin resistant Staphylococcus aureus (MRSA) scr eening culture NEG NRG Complete blood count (CBC) with automate d white blood cell (WBC) differential - 11/28/18 10:30 Blood leukocytes automated count (number/volume) 6.0 10*3/uL 4.3-11.0 Blood erythrocytes automated count (number/volume) 4.44 10*6/uL 4.35-5.85 Venous blood hemoglobin measurement (mass/volume) 10.7 g/dL 13.3-17.7 Blood hematocrit (volume fraction) 35 % 40-54 Automated erythrocyte mean corpuscular volume 79 [ foz_us] 80-99 Automated erythrocyte mean corpuscular h emoglobin (mass per erythrocyte) 24 pg 25-34 Automated erythrocyte mean corpuscular h emoglobin concentration measurement (mass/volume) 31 g/dL 32-36 Automated erythrocyte distribution width ratio 18. 3 % 10.0- 14.5 Automated blood platelet count (count/volume) 244 10*3/uL 130-400 Automated blood platelet mean volume measurement 9.2 [foz_us] 7.4-10.4 Automated blood neutrophils/100 leukocytes 58 % 42-75 Automated blood lymphocytes/100 leukocytes 33 % 12-44 Blood monocytes/100 leukocytes 4 % 0-12 Automated blood eosinophils/100 leukocytes 4 % 0-10 Automated blood basophils/100 leukocytes 1 % 0-10 Blood neutrophils automated count (number/volume) 3.5 10*3 1.8-7.8 Blood lymphocytes automated count (number/volume) 2.0 10*3 1.0-4.0 Blood monocytes automated count (number/volume) 0. 3 10*3 0.0-1.0 Automated eosinophil count 0.2 10*3/uL 0 .0-0.3 Automated blood basophil count (count/volume) 0.0 10*3/uL 0.0-0.1 Whole blood basic metabolic panel - 11/14 12/02 10:30 Serum or plasma sodium measurement (moles/volume) 129 mmol/L 135-145 Serum or plasma potassium measurement (moles/volume) 4.6 mmol/L 3.6-5.0 Serum or plasma chloride measurement (moles/volume) 91 mmol/L 98-107 Carbon dioxide 18 mmol/L 21-32 Serum or plasma anion gap determination (moles/volume) 20 mmol/L 5-14 Serum or plasma urea nitrogen measurement (mass/volume ) 19 mg/dL 7-18 Serum or plasma creatinine measurement (mass/volume) 1.09 mg/dL 0.60-1.30 Serum or plasma urea nitrogen/creatinine mass ratio 17 NRG Serum or plasma creatinine measurement w ith calculation of estimated glomerular filtration rate > NRG Serum or plasma glucose measurement (mass/volume) 323 mg/dL 70-105 Serum or plasma calcium measurement (mass/volume) 9.3 mg/dL 8.5-10.1 Complete blood count (CBC) with automate d white blood cell (WBC) differential - 12/04/18 13:05 Blood leukocytes automated count (number/volume) 3.7 10*3/uL 4.3-11.0 Blood erythrocytes automated count (number/volume) 4.55 10*6/uL 4.35-5.85 Venous blood hemoglobin measurement (mass/volume) 11.0 g/dL 13.3-17.7 Blood hematocrit (volume fraction) 35 % 40-54 Automated erythrocyte mean corpuscular volume 78 [ foz_us] 80-99 Automated erythrocyte mean corpuscular h emoglobin (mass per erythrocyte) 24 pg 25-34 Automated erythrocyte mean corpuscular h emoglobin concentration measurement (mass/volume) 31 g/dL 32-36 Automated erythrocyte distribution width ratio 18. 8 % 10.0- 14.5 Automated blood platelet count (count/volume) 190 10*3/uL 130-400 Automated blood platelet mean volume measurement 9.5 [foz_us] 7.4-10.4 Automated blood neutrophils/100 leukocytes 61 % 42-75 Automated blood lymphocytes/100 leukocytes 31 % 12-44 Blood monocytes/100 leukocytes 7 % 0-12 Automated blood eosinophils/100 leukocytes 1 % 0-10 Automated blood basophils/100 leukocytes 0 % 0-10 Blood neutrophils automated count (number/volume) 2.3 10*3 1.8-7.8 Blood lymphocytes automated count (number/volume) 1.2 10*3 1.0-4.0 Blood monocytes automated count (number/volume) 0. 3 10*3 0.0-1.0 Automated eosinophil count 0.0 10*3/uL 0 .0-0.3 Automated blood basophil count (count/volume) 0.0 10*3/uL 0.0-0.1 Comprehensive metabolic panel - 12/04/18 13:05 Serum or plasma sodium measurement (moles/volume) 131 mmol/L 135-145 Serum or plasma potassium measurement (moles/volume) 4.1 mmol/L 3.6-5.0 Serum or plasma chloride measurement (moles/volume) 93 mmol/L 98-107 Carbon dioxide 22 mmol/L 21-32 Serum or plasma anion gap determination (moles/volume) 16 mmol/L 5-14 Serum or plasma urea nitrogen measurement (mass/volume ) 19 mg/dL 7-18 Serum or plasma creatinine measurement (mass/volume) 1.10 mg/dL 0.60-1.30 Serum or plasma urea nitrogen/creatinine mass ratio 17 NRG Serum or plasma creatinine measurement w ith calculation of estimated glomerular filtration rate > NRG Serum or plasma glucose measurement (mass/volume) 263 mg/dL 70-105 Serum or plasma calcium measurement (mass/volume) 8.4 mg/dL 8.5-10.1 Serum or plasma total bilirubin measurement (mass/volu me) 0.5 mg/dL 0.1-1.0 Serum or plasma alkaline phosphatase stuart surement (enzymatic activity/volume) 73 U/L 40-136 Serum or plasma aspartate aminotransfera se measurement (enzymatic activity/volume) 14 U/L 5-34 Serum or plasma alanine aminotransferase measurement (enzymatic activity/volume) 11 U/L 0-55 Serum or plasma protein measurement (mass/volume) 6.7 g/dL 6.4-8.2 Serum or plasma albumin measurement (mass/volume) 3.8 g/dL 3.2-4.5 CALCIUM CORRECTED 8.6 mg/dL 8.5-10.1 Lipase - 12/04/18 13:05 Lipase 31 U/L 8-78 Blood manual differential performed dete ction - 12/04/18 13:05 Blood monocytes/100 leukocytes 8 % NRG Manual blood segmented neutrophils/100 leukocytes 45 % NRG Blood band neutrophils/100 leukocytes 10 % NRG Manual blood lymphocytes/100 leukocytes 36 % NRG Manual eosinophils/100 leukocytes in nose 1 % NRG Manual blood basophils/100 leukocytes 0 % NRG TROPONIN T - 12/04/18 13:05 TROPONIN T 15 % <=15 TROPONIN T - 12/04/18 15:00 TROPONIN T 8 % <=15 Complete urinalysis with reflex to cultu re - 12/04/18 17:25 Urine color determination YELLOW NRG Urine clarity determination CLEAR NR G Urine pH measurement by test strip 5.5 5-9 Specific gravity of urine by test strip <= 1.016-1.022 Urine protein assay by test strip, semi-quantitative NEGATIVE NEGATIVE Urine glucose detection by automated test strip 3+ NEGATIVE Erythrocytes detection in urine sediment by light micr oscopy NEGATIVE NEGATIVE Urine ketones detection by automated test strip TR CITLALY NEGATIVE Urine nitrite detection by test strip NEGATIVE NEGATIVE Urine total bilirubin detection by test strip NEGA TIVE NEGATIVE Urine urobilinogen measurement by automated test strip (mass/volume) 0.2 mg/dL NORMAL Urine leukocyte esterase detection by dipstick NEG ATIVE NEGATIVE Automated urine sediment erythrocyte cou nt by microscopy (number/high power field) NONE NRG Automated urine sediment leukocyte count by microscopy (number/high power field) NONE NRG Bacteria detection in urine sediment by light microsco py FEW NRG Squamous epithelial cells detection in u rine sediment by light microscopy NONE NRG Crystals detection in urine sediment by light microsco py NONE NRG Casts detection in urine sediment by light microscopy NONE NRG Mucus detection in urine sediment by light microscopy NONE NRG Complete urinalysis with reflex to culture NO NRG Complete blood count (CBC) with automate d white blood cell (WBC) differential - 12/05/18 06:00 Blood leukocytes automated count (number/volume) 4.1 10*3/uL 4.3-11.0 Blood erythrocytes automated count (number/volume) 4.02 10*6/uL 4.35-5.85 Venous blood hemoglobin measurement (mass/volume) 9.8 g/dL 13.3-17.7 Blood hematocrit (volume fraction) 31 % 40-54 Automated erythrocyte mean corpuscular volume 76 [ foz_us] 80-99 Automated erythrocyte mean corpuscular h emoglobin (mass per erythrocyte) 24 pg 25-34 Automated erythrocyte mean corpuscular h emoglobin concentration measurement (mass/volume) 32 g/dL 32-36 Automated erythrocyte distribution width ratio 18. 8 % 10.0- 14.5 Automated blood platelet count (count/volume) 160 10*3/uL 130-400 Automated blood platelet mean volume measurement 9.6 [foz_us] 7.4-10.4 Automated blood neutrophils/100 leukocytes 41 % 42-75 Automated blood lymphocytes/100 leukocytes 45 % 12-44 Blood monocytes/100 leukocytes 12 % 0-12 Automated blood eosinophils/100 leukocytes 2 % 0-10 Automated blood basophils/100 leukocytes 0 % 0-10 Blood neutrophils automated count (number/volume) 1.7 10*3 1.8-7.8 Blood lymphocytes automated count (number/volume) 1.9 10*3 1.0-4.0 Blood monocytes automated count (number/volume) 0. 5 10*3 0.0-1.0 Automated eosinophil count 0.1 10*3/uL 0 .0-0.3 Automated blood basophil count (count/volume) 0.0 10*3/uL 0.0-0.1 Comprehensive metabolic panel - 12/05/18 06:00 Serum or plasma sodium measurement (moles/volume) 134 mmol/L 135-145 Serum or plasma potassium measurement (moles/volume) 3.9 mmol/L 3.6-5.0 Serum or plasma chloride measurement (moles/volume) 104 mmol/L 98-107 Carbon dioxide 19 mmol/L 21-32 Serum or plasma anion gap determination (moles/volume) 11 mmol/L 5-14 Serum or plasma urea nitrogen measurement (mass/volume ) 15 mg/dL 7-18 Serum or plasma creatinine measurement (mass/volume) 1.12 mg/dL 0.60-1.30 Serum or plasma urea nitrogen/creatinine mass ratio 13 NRG Serum or plasma creatinine measurement w ith calculation of estimated glomerular filtration rate > NRG Serum or plasma glucose measurement (mass/volume) 189 mg/dL 70-105 Serum or plasma calcium measurement (mass/volume) 8.0 mg/dL 8.5-10.1 Serum or plasma total bilirubin measurement (mass/volu me) 0.4 mg/dL 0.1-1.0 Serum or plasma alkaline phosphatase stuart surement (enzymatic activity/volume) 58 U/L 40-136 Serum or plasma aspartate aminotransfera se measurement (enzymatic activity/volume) 11 U/L 5-34 Serum or plasma alanine aminotransferase measurement (enzymatic activity/volume) 12 U/L 0-55 Serum or plasma protein measurement (mass/volume) 5.7 g/dL 6.4-8.2 Serum or plasma albumin measurement (mass/volume) 3.1 g/dL 3.2-4.5 CALCIUM CORRECTED 8.7 mg/dL 8.5-10.1 Capillary blood glucose measurement by g lucometer (mass/volume) - 12/05/18 11:44 Capillary blood glucose measurement by glucometer (mas s/volume) 221 mg/dL 70-110 Capillary blood glucose measurement by g lucometer (mass/volume) - 12/05/18 15:42 Capillary blood glucose measurement by glucometer (mas s/volume) 231 mg/dL 70-110 Comprehensive metabolic panel - 12/06/18 09:30 Serum or plasma sodium measurement (moles/volume) 128 mmol/L 135-145 Serum or plasma potassium measurement (moles/volume) 3.0 mmol/L 3.6-5.0 Serum or plasma chloride measurement (moles/volume) 94 mmol/L 98-107 Carbon dioxide 20 mmol/L 21-32 Serum or plasma anion gap determination (moles/volume) 14 mmol/L 5-14 Serum or plasma urea nitrogen measurement (mass/volume ) 11 mg/dL 7-18 Serum or plasma creatinine measurement (mass/volume) 1.18 mg/dL 0.60-1.30 Serum or plasma urea nitrogen/creatinine mass ratio 9 NRG Serum or plasma creatinine measurement w ith calculation of estimated glomerular filtration rate > NRG Serum or plasma glucose measurement (mass/volume) 220 mg/dL 70-105 Serum or plasma calcium measurement (mass/volume) 7.5 mg/dL 8.5-10.1 Serum or plasma total bilirubin measurement (mass/volu me) 0.4 mg/dL 0.1-1.0 Serum or plasma alkaline phosphatase stuart surement (enzymatic activity/volume) 56 U/L 40-136 Serum or plasma aspartate aminotransfera se measurement (enzymatic activity/volume) 14 U/L 5-34 Serum or plasma alanine aminotransferase measurement (enzymatic activity/volume) 10 U/L 0-55 Serum or plasma protein measurement (mass/volume) 5.8 g/dL 6.4-8.2 Serum or plasma albumin measurement (mass/volume) 3.2 g/dL 3.2-4.5 CALCIUM CORRECTED 8.1 mg/dL 8.5-10.1 Magnesium - 12/06/18 09:30 Magnesium 1.2 mg/dL 1.8-2.4 Lipase - 12/06/18 09:30 Lipase 27 U/L 8-78 Blood lactic acid measurement (moles/vol ume) - 12/06/18 09:30 Blood lactic acid measurement (moles/volume) 1.05 mmol/L 0.50-2.00 TROPONIN T - 12/06/18 09:30 TROPONIN T 150 % <=15 Complete blood count (CBC) with automate d white blood cell (WBC) differential - 12/06/18 09:30 Blood leukocytes automated count (number/volume) 3.5 10*3/uL 4.3-11.0 Blood erythrocytes automated count (number/volume) 3.70 10*6/uL 4.35-5.85 Venous blood hemoglobin measurement (mass/volume) 9.1 g/dL 13.3-17.7 Blood hematocrit (volume fraction) 29 % 40-54 Automated erythrocyte mean corpuscular volume 77 [ foz_us] 80-99 Automated erythrocyte mean corpuscular h emoglobin (mass per erythrocyte) 25 pg 25-34 Automated erythrocyte mean corpuscular h emoglobin concentration measurement (mass/volume) 32 g/dL 32-36 Automated erythrocyte distribution width ratio 18. 3 % 10.0- 14.5 Automated blood platelet count (count/volume) 147 10*3/uL 130-400 Automated blood platelet mean volume measurement 9.7 [foz_us] 7.4-10.4 Automated blood neutrophils/100 leukocytes 45 % 42-75 Automated blood lymphocytes/100 leukocytes 42 % 12-44 Blood monocytes/100 leukocytes 10 % 0-12 Automated blood eosinophils/100 leukocytes 3 % 0-10 Automated blood basophils/100 leukocytes 0 % 0-10 Blood neutrophils automated count (number/volume) 1.6 10*3 1.8-7.8 Blood lymphocytes automated count (number/volume) 1.5 10*3 1.0-4.0 Blood monocytes automated count (number/volume) 0. 4 10*3 0.0-1.0 Automated eosinophil count 0.1 10*3/uL 0 .0-0.3 Automated blood basophil count (count/volume) 0.0 10*3/uL 0.0-0.1 Blood manual differential performed dete ction - 12/06/18 09:30 Blood monocytes/100 leukocytes 6 % NRG Manual blood segmented neutrophils/100 leukocytes 25 % NRG Blood band neutrophils/100 leukocytes 28 % NRG Manual blood lymphocytes/100 leukocytes 32 % NRG Manual eosinophils/100 leukocytes in nose 1 % NRG Blood lymphocytes variant/100 leukocytes 8 % NRG Blood ovalocytes detection by light microscopy SLI GHT NRG Blood hypochromia detection by light microscopy 2+ NRG Blood microcytes detection by light microscopy 1+ NRG Bacterial blood culture - 12/06/18 09:30 Bacterial blood culture NG NRG Bacterial blood culture - 12/06/18 10:00 Bacterial blood culture NG NRG Stool occult blood screen - 12/06/18 10: 52 Stool gastrointestinal hemoglobin detection POSITI VE NEGATIVE Complete urinalysis with reflex to cultu re - 12/06/18 10:52 Urine color determination YELLOW NRG Urine clarity determination CLEAR NR G Urine pH measurement by test strip 6.0 5-9 Specific gravity of urine by test strip 1.020 1.016-1.022 Urine protein assay by test strip, semi-quantitative TRACE NEGATIVE Urine glucose detection by automated test strip 3+ NEGATIVE Erythrocytes detection in urine sediment by light micr oscopy NEGATIVE NEGATIVE Urine ketones detection by automated test strip NE GATIVE NEGATIVE Urine nitrite detection by test strip NEGATIVE NEGATIVE Urine total bilirubin detection by test strip NEGA TIVE NEGATIVE Urine urobilinogen measurement by automated test strip (mass/volume) 0.2 mg/dL NORMAL Urine leukocyte esterase detection by dipstick NEG ATIVE NEGATIVE Automated urine sediment erythrocyte cou nt by microscopy (number/high power field) NONE NRG Automated urine sediment leukocyte count by microscopy (number/high power field) [HPF] NRG Bacteria detection in urine sediment by light microsco py NEGATIVE NRG Crystals detection in urine sediment by light microsco py NONE NRG Casts detection in urine sediment by light microscopy NONE NRG Mucus detection in urine sediment by light microscopy SMALL NRG Complete urinalysis with reflex to culture NO NRG Stool bacteria identification by culture - 12/06/18 10:52 C DIFFICILE AG + TOXIN A/B. - 12/06/18 1 0:52 CALL POSITIVES (F1 HELP) CALLED TO [facility] , 1422/KD NRG SPECIAL CONTACT SPECIAL CONTACT PRECAUTIONS NEEDED NRG RESULTS POSITIVE FOR ANTIGEN AND TOXIN A/B NRG Stool Rotavirus antigen detection - 11/15 10/02 10:52 ROTAVIRUS RESULT NEGATIVE BY IA NRG Serum or plasma troponin i.cardiac measu rement (mass/volume) - 12/06/18 15:18 Serum or plasma troponin i.cardiac measurement (mass/v olume) 0.806 ng/mL <0.028 Serum or plasma troponin i.cardiac measu rement (mass/volume) - 12/06/18 21:00 Serum or plasma troponin i.cardiac measurement (mass/v olume) 1.967 ng/mL <0.028 Automated blood complete blood count (he mogram) panel - 12/07/18 04:15 Blood leukocytes automated count (number/volume) 5.0 10*3/uL 4.3-11.0 Blood erythrocytes automated count (number/volume) 3.61 10*6/uL 4.35-5.85 Venous blood hemoglobin measurement (mass/volume) 9.0 g/dL 13.3-17.7 Blood hematocrit (volume fraction) 27 % 40-54 Automated erythrocyte mean corpuscular volume 75 [ foz_us] 80-99 Automated erythrocyte mean corpuscular h emoglobin (mass per erythrocyte) 25 pg 25-34 Automated erythrocyte mean corpuscular h emoglobin concentration measurement (mass/volume) 33 g/dL 32-36 Automated erythrocyte distribution width ratio 19. 0 % 10.0- 14.5 Automated blood platelet count (count/volume) 158 10*3/uL 130-400 Automated blood platelet mean volume measurement 9.5 [foz_us] 7.4-10.4 Comprehensive metabolic panel - 12/07/18 04:15 Serum or plasma sodium measurement (moles/volume) 131 mmol/L 135-145 Serum or plasma potassium measurement (moles/volume) 3.1 mmol/L 3.6-5.0 Serum or plasma chloride measurement (moles/volume) 103 mmol/L 98-107 Carbon dioxide 18 mmol/L 21-32 Serum or plasma anion gap determination (moles/volume) 10 mmol/L 5-14 Serum or plasma urea nitrogen measurement (mass/volume ) 7 mg/dL 7-18 Serum or plasma creatinine measurement (mass/volume) 0.87 mg/dL 0.60-1.30 Serum or plasma urea nitrogen/creatinine mass ratio 8 NRG Serum or plasma creatinine measurement w ith calculation of estimated glomerular filtration rate > NRG Serum or plasma glucose measurement (mass/volume) 151 mg/dL 70-105 Serum or plasma calcium measurement (mass/volume) 7.7 mg/dL 8.5-10.1 Serum or plasma total bilirubin measurement (mass/volu me) 0.3 mg/dL 0.1-1.0 Serum or plasma alkaline phosphatase stuart surement (enzymatic activity/volume) 54 U/L 40-136 Serum or plasma aspartate aminotransfera se measurement (enzymatic activity/volume) 31 U/L 5-34 Serum or plasma alanine aminotransferase measurement (enzymatic activity/volume) 15 U/L 0-55 Serum or plasma protein measurement (mass/volume) 5.3 g/dL 6.4-8.2 Serum or plasma albumin measurement (mass/volume) 2.9 g/dL 3.2-4.5 CALCIUM CORRECTED 8.6 mg/dL 8.5-10.1 Magnesium - 12/07/18 04:15 Magnesium 1.3 mg/dL 1.8-2.4 Serum or plasma troponin i.cardiac measu rement (mass/volume) - 12/07/18 04:15 Serum or plasma troponin i.cardiac measurement (mass/v olume) 4.355 ng/mL <0.028 Serum iron and total iron binding capaci ty panel - 12/07/18 04:15 Serum or plasma iron measurement (mass/volume) < % 40-180 Total iron binding capacity and transferrin saturation measurement < % 15-50 Iron binding capacity [mass/volume] in serum or plasma < % 280-380 UIBC (unsaturated iron binding capacity) 235 % 55-450 Serum or plasma ferritin measurement (mass/volume) 105.4 % 32.0-356.0 Capillary blood glucose measurement by g lucometer (mass/volume) - 12/08/18 21:55 Capillary blood glucose measurement by glucometer (mas s/volume) 204 mg/dL 70-110 Automated blood complete blood count (he mogram) panel - 12/09/18 04:00 Blood leukocytes automated count (number/volume) 3.6 10*3/uL 4.3-11.0 Blood erythrocytes automated count (number/volume) 3.28 10*6/uL 4.35-5.85 Venous blood hemoglobin measurement (mass/volume) 8.1 g/dL 13.3-17.7 Blood hematocrit (volume fraction) 25 % 40-54 Automated erythrocyte mean corpuscular volume 75 [ foz_us] 80-99 Automated erythrocyte mean corpuscular h emoglobin (mass per erythrocyte) 25 pg 25-34 Automated erythrocyte mean corpuscular h emoglobin concentration measurement (mass/volume) 33 g/dL 32-36 Automated erythrocyte distribution width ratio 19. 3 % 10.0- 14.5 Automated blood platelet count (count/volume) 202 10*3/uL 130-400 Automated blood platelet mean volume measurement 8.8 [foz_us] 7.4-10.4 Comprehensive metabolic panel - 12/09/18 04:00 Serum or plasma sodium measurement (moles/volume) 133 mmol/L 135-145 Serum or plasma potassium measurement (moles/volume) 2.7 mmol/L 3.6-5.0 Serum or plasma chloride measurement (moles/volume) 104 mmol/L 98-107 Carbon dioxide 20 mmol/L 21-32 Serum or plasma anion gap determination (moles/volume) 9 mmol/L 5-14 Serum or plasma urea nitrogen measurement (mass/volume ) 3 mg/dL 7-18 Serum or plasma creatinine measurement (mass/volume) 0.85 mg/dL 0.60-1.30 Serum or plasma urea nitrogen/creatinine mass ratio 4 NRG Serum or plasma creatinine measurement w ith calculation of estimated glomerular filtration rate > NRG Serum or plasma glucose measurement (mass/volume) 170 mg/dL 70-105 Serum or plasma calcium measurement (mass/volume) 7.5 mg/dL 8.5-10.1 Serum or plasma total bilirubin measurement (mass/volu me) 0.2 mg/dL 0.1-1.0 Serum or plasma alkaline phosphatase stuart surement (enzymatic activity/volume) 46 U/L 40-136 Serum or plasma aspartate aminotransfera se measurement (enzymatic activity/volume) 17 U/L 5-34 Serum or plasma alanine aminotransferase measurement (enzymatic activity/volume) 10 U/L 0-55 Serum or plasma protein measurement (mass/volume) 4.9 g/dL 6.4-8.2 Serum or plasma albumin measurement (mass/volume) 2.7 g/dL 3.2-4.5 CALCIUM CORRECTED 8.5 mg/dL 8.5-10.1 Serum or plasma troponin i.cardiac measu rement (mass/volume) - 12/09/18 04:00 Serum or plasma troponin i.cardiac measurement (mass/v olume) 2.901 ng/mL <0.028 Methicillin resistant Staphylococcus aur eus (MRSA) screening culture - 12/09/18 10:30 Methicillin resistant Staphylococcus aureus (MRSA) scr eening culture NEG NRG Automated blood complete blood count (he mogram) panel - 12/10/18 05:50 Blood leukocytes automated count (number/volume) 5.0 10*3/uL 4.3-11.0 Blood erythrocytes automated count (number/volume) 3.44 10*6/uL 4.35-5.85 Venous blood hemoglobin measurement (mass/volume) 8.5 g/dL 13.3-17.7 Blood hematocrit (volume fraction) 26 % 40-54 Automated erythrocyte mean corpuscular volume 76 [ foz_us] 80-99 Automated erythrocyte mean corpuscular h emoglobin (mass per erythrocyte) 25 pg 25-34 Automated erythrocyte mean corpuscular h emoglobin concentration measurement (mass/volume) 32 g/dL 32-36 Automated erythrocyte distribution width ratio 20. 4 % 10.0- 14.5 Automated blood platelet count (count/volume) 236 10*3/uL 130-400 Automated blood platelet mean volume measurement 8.6 [foz_us] 7.4-10.4 Whole blood basic metabolic panel - 11/15 02/01 05:50 Serum or plasma sodium measurement (moles/volume) 135 mmol/L 135-145 Serum or plasma potassium measurement (moles/volume) 2.9 mmol/L 3.6-5.0 Serum or plasma chloride measurement (moles/volume) 107 mmol/L 98-107 Carbon dioxide 17 mmol/L 21-32 Serum or plasma anion gap determination (moles/volume) 11 mmol/L 5-14 Serum or plasma urea nitrogen measurement (mass/volume ) 4 mg/dL 7-18 Serum or plasma creatinine measurement (mass/volume) 0.81 mg/dL 0.60-1.30 Serum or plasma urea nitrogen/creatinine mass ratio 5 NRG Serum or plasma creatinine measurement w ith calculation of estimated glomerular filtration rate > NRG Serum or plasma glucose measurement (mass/volume) 164 mg/dL 70-105 Serum or plasma calcium measurement (mass/volume) 7.6 mg/dL 8.5-10.1 Magnesium - 12/10/18 05:50 Magnesium 1.4 mg/dL 1.8-2.4 Serum or plasma potassium measurement (m oles/volume) - 12/11/18 10:38 Serum or plasma potassium measurement (moles/volume) 3.1 mmol/L 3.6-5.0 Magnesium - 12/11/18 10:38 Magnesium 1.4 mg/dL 1.8-2.4 Whole blood basic metabolic panel - 11/15 04/04 06:18 Serum or plasma sodium measurement (moles/volume) 134 mmol/L 135-145 Serum or plasma potassium measurement (moles/volume) 3.4 mmol/L 3.6-5.0 Serum or plasma chloride measurement (moles/volume) 107 mmol/L 98-107 Carbon dioxide 20 mmol/L 21-32 Serum or plasma anion gap determination (moles/volume) 7 mmol/L 5-14 Serum or plasma urea nitrogen measurement (mass/volume ) 2 mg/dL 7-18 Serum or plasma creatinine measurement (mass/volume) 0.85 mg/dL 0.60-1.30 Serum or plasma urea nitrogen/creatinine mass ratio 2 NRG Serum or plasma creatinine measurement w ith calculation of estimated glomerular filtration rate > NRG Serum or plasma glucose measurement (mass/volume) 168 mg/dL 70-105 Serum or plasma calcium measurement (mass/volume) 7.9 mg/dL 8.5-10.1 Magnesium - 12/12/18 06:18 Magnesium 1.6 mg/dL 1.8-2.4 Automated blood complete blood count (he mogram) panel - 12/13/18 04:00 Blood leukocytes automated count (number/volume) 5.8 10*3/uL 4.3-11.0 Blood erythrocytes automated count (number/volume) 3.46 10*6/uL 4.35-5.85 Venous blood hemoglobin measurement (mass/volume) 8.6 g/dL 13.3-17.7 Blood hematocrit (volume fraction) 26 % 40-54 Automated erythrocyte mean corpuscular volume 75 [ foz_us] 80-99 Automated erythrocyte mean corpuscular h emoglobin (mass per erythrocyte) 25 pg 25-34 Automated erythrocyte mean corpuscular h emoglobin concentration measurement (mass/volume) 33 g/dL 32-36 Automated erythrocyte distribution width ratio 20. 5 % 10.0- 14.5 Automated blood platelet count (count/volume) 234 10*3/uL 130-400 Automated blood platelet mean volume measurement 9.3 [foz_us] 7.4-10.4 Whole blood basic metabolic panel - 11/16 04:00 Serum or plasma sodium measurement (moles/volume) 132 mmol/L 135-145 Serum or plasma potassium measurement (moles/volume) 3.3 mmol/L 3.6-5.0 Serum or plasma chloride measurement (moles/volume) 104 mmol/L 98-107 Carbon dioxide 21 mmol/L 21-32 Serum or plasma anion gap determination (moles/volume) 7 mmol/L 5-14 Serum or plasma urea nitrogen measurement (mass/volume ) 4 mg/dL 7-18 Serum or plasma creatinine measurement (mass/volume) 0.79 mg/dL 0.60-1.30 Serum or plasma urea nitrogen/creatinine mass ratio 5 NRG Serum or plasma creatinine measurement w ith calculation of estimated glomerular filtration rate > NRG Serum or plasma glucose measurement (mass/volume) 176 mg/dL 70-105 Serum or plasma calcium measurement (mass/volume) 7.7 mg/dL 8.5-10.1 Complete blood count (CBC) with automate d white blood cell (WBC) differential - 12/19/18 14:00 Blood leukocytes automated count (number/volume) 5.9 10*3/uL 4.3-11.0 Blood erythrocytes automated count (number/volume) 4.29 10*6/uL 4.35-5.85 Venous blood hemoglobin measurement (mass/volume) 10.8 g/dL 13.3-17.7 Blood hematocrit (volume fraction) 35 % 40-54 Automated erythrocyte mean corpuscular volume 80 [ foz_us] 80-99 Automated erythrocyte mean corpuscular h emoglobin (mass per erythrocyte) 25 pg 25-34 Automated erythrocyte mean corpuscular h emoglobin concentration measurement (mass/volume) 31 g/dL 32-36 Automated erythrocyte distribution width ratio 23. 0 % 10.0- 14.5 Automated blood platelet count (count/volume) 308 10*3/uL 130-400 Automated blood platelet mean volume measurement 9.1 [foz_us] 7.4-10.4 Automated blood neutrophils/100 leukocytes 37 % 42-75 Automated blood lymphocytes/100 leukocytes 48 % 12-44 Blood monocytes/100 leukocytes 11 % 0-12 Automated blood eosinophils/100 leukocytes 3 % 0-10 Automated blood basophils/100 leukocytes 1 % 0-10 Blood neutrophils automated count (number/volume) 2.1 10*3 1.8-7.8 Blood lymphocytes automated count (number/volume) 2.8 10*3 1.0-4.0 Blood monocytes automated count (number/volume) 0. 6 10*3 0.0-1.0 Automated eosinophil count 0.2 10*3/uL 0 .0-0.3 Automated blood basophil count (count/volume) 0.1 10*3/uL 0.0-0.1 Blood blood smear finding identification by light micr oscopy YES NRG Whole blood basic metabolic panel - 12/16 01/02 10:35 Serum or plasma sodium measurement (moles/volume) 132 mmol/L 135-145 Serum or plasma potassium measurement (moles/volume) 4.7 mmol/L 3.6-5.0 Serum or plasma chloride measurement (moles/volume) 96 mmol/L 98-107 Carbon dioxide 22 mmol/L 21-32 Serum or plasma anion gap determination (moles/volume) 14 mmol/L 5-14 Serum or plasma urea nitrogen measurement (mass/volume ) 16 mg/dL 7-18 Serum or plasma creatinine measurement (mass/volume) 1.15 mg/dL 0.60-1.30 Serum or plasma urea nitrogen/creatinine mass ratio 14 NRG Serum or plasma creatinine measurement w ith calculation of estimated glomerular filtration rate > NRG Serum or plasma glucose measurement (mass/volume) 236 mg/dL 70-105 Serum or plasma calcium measurement (mass/volume) 9.5 mg/dL 8.5-10.1 Complete blood count (CBC) with automate d white blood cell (WBC) differential - 01/09/19 10:35 Blood leukocytes automated count (number/volume) 7.3 10*3/uL 4.3-11.0 Blood erythrocytes automated count (number/volume) 4.10 10*6/uL 4.35-5.85 Venous blood hemoglobin measurement (mass/volume) 11.2 g/dL 13.3-17.7 Blood hematocrit (volume fraction) 35 % 40-54 Automated erythrocyte mean corpuscular volume 86 [ foz_us] 80-99 Automated erythrocyte mean corpuscular h emoglobin (mass per erythrocyte) 27 pg 25-34 Automated erythrocyte mean corpuscular h emoglobin concentration measurement (mass/volume) 32 g/dL 32-36 Automated erythrocyte distribution width ratio 23. 8 % 10.0- 14.5 Automated blood platelet count (count/volume) 212 10*3/uL 130-400 Automated blood platelet mean volume measurement 9.6 [foz_us] 7.4-10.4 Automated blood neutrophils/100 leukocytes 59 % 42-75 Automated blood lymphocytes/100 leukocytes 30 % 12-44 Blood monocytes/100 leukocytes 7 % 0-12 Automated blood eosinophils/100 leukocytes 3 % 0-10 Automated blood basophils/100 leukocytes 1 % 0-10 Blood neutrophils automated count (number/volume) 4.3 10*3 1.8-7.8 Blood lymphocytes automated count (number/volume) 2.2 10*3 1.0-4.0 Blood monocytes automated count (number/volume) 0. 5 10*3 0.0-1.0 Automated eosinophil count 0.3 10*3/uL 0 .0-0.3 Automated blood basophil count (count/volume) 0.1 10*3/uL 0.0-0.1 Complete blood count (CBC) with automate d white blood cell (WBC) differential - 01/16/19 13:22 Blood leukocytes automated count (number/volume) 5.3 10*3/uL 4.3-11.0 Blood erythrocytes automated count (number/volume) 4.15 10*6/uL 4.35-5.85 Venous blood hemoglobin measurement (mass/volume) 11.2 g/dL 13.3-17.7 Blood hematocrit (volume fraction) 34 % 40-54 Automated erythrocyte mean corpuscular volume 82 [ foz_us] 80-99 Automated erythrocyte mean corpuscular h emoglobin (mass per erythrocyte) 27 pg 25-34 Automated erythrocyte mean corpuscular h emoglobin concentration measurement (mass/volume) 33 g/dL 32-36 Automated erythrocyte distribution width ratio 22. 9 % 10.0- 14.5 Automated blood platelet count (count/volume) 183 10*3/uL 130-400 Automated blood platelet mean volume measurement 9.5 [foz_us] 7.4-10.4 Automated blood neutrophils/100 leukocytes 66 % 42-75 Automated blood lymphocytes/100 leukocytes 25 % 12-44 Blood monocytes/100 leukocytes 8 % 0-12 Automated blood eosinophils/100 leukocytes 1 % 0-10 Automated blood basophils/100 leukocytes 0 % 0-10 Blood neutrophils automated count (number/volume) 3.5 10*3 1.8-7.8 Blood lymphocytes automated count (number/volume) 1.3 10*3 1.0-4.0 Blood monocytes automated count (number/volume) 0. 4 10*3 0.0-1.0 Automated eosinophil count 0.1 10*3/uL 0 .0-0.3 Automated blood basophil count (count/volume) 0.0 10*3/uL 0.0-0.1 PT panel in platelet poor plasma by coag ulation assay - 01/16/19 13:22 Prothrombin time (PT) in platelet poor plasma by coagu lation assay 14.5 s 12.2-14.7 INR in platelet poor plasma or blood by coagulation as say 1.1 0.8-1.4 Activated partial thromboplastin time (a PTT) in platelet poor plasma bycoagulation assay - 01/16/19 13:22 Activated partial thromboplastin time (a PTT) in platelet poor plasma bycoagulation assay 26 s 24-35 Blood lactic acid measurement (moles/vol ume) - 01/16/19 13:22 Blood lactic acid measurement (moles/volume) 2.92 mmol/L 0.50-2.00 Comprehensive metabolic panel - 01/16/19 13:22 Serum or plasma sodium measurement (moles/volume) 130 mmol/L 135-145 Serum or plasma potassium measurement (moles/volume) 3.6 mmol/L 3.6-5.0 Serum or plasma chloride measurement (moles/volume) 97 mmol/L 98-107 Carbon dioxide 20 mmol/L 21-32 Serum or plasma anion gap determination (moles/volume) 13 mmol/L 5-14 Serum or plasma urea nitrogen measurement (mass/volume ) 14 mg/dL 7-18 Serum or plasma creatinine measurement (mass/volume) 1.24 mg/dL 0.60-1.30 Serum or plasma urea nitrogen/creatinine mass ratio 11 NRG Serum or plasma creatinine measurement w ith calculation of estimated glomerular filtration rate 58 NRG Serum or plasma glucose measurement (mass/volume) 171 mg/dL 70-105 Serum or plasma calcium measurement (mass/volume) 9.2 mg/dL 8.5-10.1 Serum or plasma total bilirubin measurement (mass/volu me) 0.5 mg/dL 0.1-1.0 Serum or plasma alkaline phosphatase stuart surement (enzymatic activity/volume) 71 U/L 40-136 Serum or plasma aspartate aminotransfera se measurement (enzymatic activity/volume) 16 U/L 5-34 Serum or plasma alanine aminotransferase measurement (enzymatic activity/volume) 11 U/L 0-55 Serum or plasma protein measurement (mass/volume) 7.0 g/dL 6.4-8.2 Serum or plasma albumin measurement (mass/volume) 3.8 g/dL 3.2-4.5 CALCIUM CORRECTED 9.4 mg/dL 8.5-10.1 Lipase - 01/16/19 13:22 Lipase 32 U/L 8-78 Serum or plasma C reactive protein measu rement (mass/volume) - 01/16/19 13:22 Serum or plasma C reactive protein measurement (mass/v olume) 2.09 mg/dL 0.00-0.50 Bacterial blood culture - 01/16/19 13:22 Bacterial blood culture NG NRG Bacterial blood culture - 01/16/19 13:56 Bacterial blood culture NG NRG Serum or plasma lactate measurement (mol es/volume) - 01/16/19 15:00 Serum or plasma lactate measurement (moles/volume) 2.20 mmol/L 0.50-2.00 Capillary blood glucose measurement by g lucometer (mass/volume) - 01/16/19 15:15 Capillary blood glucose measurement by glucometer (mas s/volume) 136 mg/dL 70-110 Complete urinalysis with reflex to cultu re - 01/16/19 15:53 Urine color determination YELLOW NRG Urine clarity determination CLEAR NR G Urine pH measurement by test strip 5 5-9 Specific gravity of urine by test strip 1.015 1.016-1.022 Urine protein assay by test strip, semi-quantitative 2+ NEGATIVE Urine glucose detection by automated test strip 3+ NEGATIVE Erythrocytes detection in urine sediment by light micr oscopy NEGATIVE NEGATIVE Urine ketones detection by automated test strip 1+ NEGATIVE Urine nitrite detection by test strip NEGATIVE NEGATIVE Urine total bilirubin detection by test strip NEGA TIVE NEGATIVE Urine urobilinogen measurement by automated test strip (mass/volume) NORMAL NORMAL Urine leukocyte esterase detection by dipstick NEG ATIVE NEGATIVE Automated urine sediment erythrocyte cou nt by microscopy (number/high power field) NONE NRG Automated urine sediment leukocyte count by microscopy (number/high power field) NONE NRG Bacteria detection in urine sediment by light microsco py TRACE NRG Crystals detection in urine sediment by light microsco py NONE NRG Casts detection in urine sediment by light microscopy NONE NRG Mucus detection in urine sediment by light microscopy NEGATIVE NRG Complete urinalysis with reflex to culture CULTURE PENDING NRG Bacterial urine culture - 01/16/19 15:53 Bacterial urine culture NG NRG Complete blood count (CBC) with automate d white blood cell (WBC) differential - 01/21/19 08:54 Blood leukocytes automated count (number/volume) 5.5 10*3/uL 4.3-11.0 Blood erythrocytes automated count (number/volume) 3.39 10*6/uL 4.35-5.85 Venous blood hemoglobin measurement (mass/volume) 9.5 g/dL 13.3-17.7 Blood hematocrit (volume fraction) 29 % 40-54 Automated erythrocyte mean corpuscular volume 85 [ foz_us] 80-99 Automated erythrocyte mean corpuscular h emoglobin (mass per erythrocyte) 28 pg 25-34 Automated erythrocyte mean corpuscular h emoglobin concentration measurement (mass/volume) 33 g/dL 32-36 Automated erythrocyte distribution width ratio 22. 8 % 10.0- 14.5 Automated blood platelet count (count/volume) 177 10*3/uL 130-400 Automated blood platelet mean volume measurement 8.8 [foz_us] 7.4-10.4 Automated blood neutrophils/100 leukocytes 47 % 42-75 Automated blood lymphocytes/100 leukocytes 40 % 12-44 Blood monocytes/100 leukocytes 11 % 0-12 Automated blood eosinophils/100 leukocytes 2 % 0-10 Automated blood basophils/100 leukocytes 0 % 0-10 Blood neutrophils automated count (number/volume) 2.5 10*3 1.8-7.8 Blood lymphocytes automated count (number/volume) 2.2 10*3 1.0-4.0 Blood monocytes automated count (number/volume) 0. 6 10*3 0.0-1.0 Automated eosinophil count 0.1 10*3/uL 0 .0-0.3 Automated blood basophil count (count/volume) 0.0 10*3/uL 0.0-0.1 Comprehensive metabolic panel - 01/21/19 08:54 Serum or plasma sodium measurement (moles/volume) 133 mmol/L 135-145 Serum or plasma potassium measurement (moles/volume) 3.2 mmol/L 3.6-5.0 Serum or plasma chloride measurement (moles/volume) 96 mmol/L 98-107 Carbon dioxide 22 mmol/L 21-32 Serum or plasma anion gap determination (moles/volume) 15 mmol/L 5-14 Serum or plasma urea nitrogen measurement (mass/volume ) 6 mg/dL 7-18 Serum or plasma creatinine measurement (mass/volume) 0.97 mg/dL 0.60-1.30 Serum or plasma urea nitrogen/creatinine mass ratio 6 NRG Serum or plasma creatinine measurement w ith calculation of estimated glomerular filtration rate > NRG Serum or plasma glucose measurement (mass/volume) 148 mg/dL 70-105 Serum or plasma calcium measurement (mass/volume) 8.4 mg/dL 8.5-10.1 Serum or plasma total bilirubin measurement (mass/volu me) 0.3 mg/dL 0.1-1.0 Serum or plasma alkaline phosphatase stuart surement (enzymatic activity/volume) 68 U/L 40-136 Serum or plasma aspartate aminotransfera se measurement (enzymatic activity/volume) 14 U/L 5-34 Serum or plasma alanine aminotransferase measurement (enzymatic activity/volume) 10 U/L 0-55 Serum or plasma protein measurement (mass/volume) 6.1 g/dL 6.4-8.2 Serum or plasma albumin measurement (mass/volume) 3.3 g/dL 3.2-4.5 CALCIUM CORRECTED 9.0 mg/dL 8.5-10.1 Complete urinalysis with reflex to cultu re - 01/21/19 11:06 Urine color determination YELLOW NRG Urine clarity determination CLEAR NR G Urine pH measurement by test strip 6.5 5-9 Specific gravity of urine by test strip <= 1.016-1.022 Urine protein assay by test strip, semi-quantitative NEGATIVE NEGATIVE Urine glucose detection by automated test strip 1+ NEGATIVE Erythrocytes detection in urine sediment by light micr oscopy NEGATIVE NEGATIVE Urine ketones detection by automated test strip NE GATIVE NEGATIVE Urine nitrite detection by test strip NEGATIVE NEGATIVE Urine total bilirubin detection by test strip NEGA TIVE NEGATIVE Urine urobilinogen measurement by automated test strip (mass/volume) 0.2 mg/dL NORMAL Urine leukocyte esterase detection by dipstick NEG ATIVE NEGATIVE Automated urine sediment erythrocyte cou nt by microscopy (number/high power field) NONE NRG Automated urine sediment leukocyte count by microscopy (number/high power field) [HPF] NRG Bacteria detection in urine sediment by light microsco py NEGATIVE NRG Squamous epithelial cells detection in u rine sediment by light microscopy 0-2 NRG Crystals detection in urine sediment by light microsco py NONE NRG Casts detection in urine sediment by light microscopy PRESENT NRG Mucus detection in urine sediment by light microscopy SMALL NRG Complete urinalysis with reflex to culture NO NRG Hyaline casts detection in urine sediment by light dre roscopy 2-5 NRG Automated blood complete blood count (he mogram) panel - 01/22/19 05:30 Blood leukocytes automated count (number/volume) 4.4 10*3/uL 4.3-11.0 Blood erythrocytes automated count (number/volume) 3.06 10*6/uL 4.35-5.85 Venous blood hemoglobin measurement (mass/volume) 8.5 g/dL 13.3-17.7 Blood hematocrit (volume fraction) 26 % 40-54 Automated erythrocyte mean corpuscular volume 84 [ foz_us] 80-99 Automated erythrocyte mean corpuscular h emoglobin (mass per erythrocyte) 28 pg 25-34 Automated erythrocyte mean corpuscular h emoglobin concentration measurement (mass/volume) 33 g/dL 32-36 Automated erythrocyte distribution width ratio 22. 9 % 10.0- 14.5 Automated blood platelet count (count/volume) 143 10*3/uL 130-400 Automated blood platelet mean volume measurement 8.9 [foz_us] 7.4-10.4 Comprehensive metabolic panel - 01/22/19 05:30 Serum or plasma sodium measurement (moles/volume) 137 mmol/L 135-145 Serum or plasma potassium measurement (moles/volume) 3.5 mmol/L 3.6-5.0 Serum or plasma chloride measurement (moles/volume) 106 mmol/L 98-107 Carbon dioxide 22 mmol/L 21-32 Serum or plasma anion gap determination (moles/volume) 9 mmol/L 5-14 Serum or plasma urea nitrogen measurement (mass/volume ) 5 mg/dL 7-18 Serum or plasma creatinine measurement (mass/volume) 0.85 mg/dL 0.60-1.30 Serum or plasma urea nitrogen/creatinine mass ratio 6 NRG Serum or plasma creatinine measurement w ith calculation of estimated glomerular filtration rate > NRG Serum or plasma glucose measurement (mass/volume) 111 mg/dL 70-105 Serum or plasma calcium measurement (mass/volume) 8.0 mg/dL 8.5-10.1 Serum or plasma total bilirubin measurement (mass/volu me) 0.2 mg/dL 0.1-1.0 Serum or plasma alkaline phosphatase stuart surement (enzymatic activity/volume) 59 U/L 40-136 Serum or plasma aspartate aminotransfera se measurement (enzymatic activity/volume) 18 U/L 5-34 Serum or plasma alanine aminotransferase measurement (enzymatic activity/volume) 13 U/L 0-55 Serum or plasma protein measurement (mass/volume) 5.0 g/dL 6.4-8.2 Serum or plasma albumin measurement (mass/volume) 2.8 g/dL 3.2-4.5 CALCIUM CORRECTED 9.0 mg/dL 8.5-10.1 Magnesium - 01/22/19 05:30 Magnesium 1.0 mg/dL 1.8-2.4 Magnesium - 01/22/19 10:25 Magnesium 1.7 mg/dL 1.8-2.4 Serum iron and total iron binding capaci ty panel - 01/22/19 10:25 TIBC 278 % 280-380 Serum or plasma iron measurement (mass/volume) 26 % 40-180 Total iron binding capacity and transferrin saturation measurement 9 % 15-50 UIBC (unsaturated iron binding capacity) 252 % 55-450 Serum or plasma ferritin measurement (mass/volume) 54.2 % 32.0-356.0 Complete blood count (CBC) with automate d white blood cell (WBC) differential - 01/23/19 05:40 Blood leukocytes automated count (number/volume) 4.1 10*3/uL 4.3-11.0 Blood erythrocytes automated count (number/volume) 3.31 10*6/uL 4.35-5.85 Venous blood hemoglobin measurement (mass/volume) 9.1 g/dL 13.3-17.7 Blood hematocrit (volume fraction) 28 % 40-54 Automated erythrocyte mean corpuscular volume 84 [ foz_us] 80-99 Automated erythrocyte mean corpuscular h emoglobin (mass per erythrocyte) 27 pg 25-34 Automated erythrocyte mean corpuscular h emoglobin concentration measurement (mass/volume) 33 g/dL 32-36 Automated erythrocyte distribution width ratio 23. 4 % 10.0- 14.5 Automated blood platelet count (count/volume) 162 10*3/uL 130-400 Automated blood platelet mean volume measurement 8.7 [foz_us] 7.4-10.4 Automated blood neutrophils/100 leukocytes 38 % 42-75 Automated blood lymphocytes/100 leukocytes 43 % 12-44 Blood monocytes/100 leukocytes 15 % 0-12 Automated blood eosinophils/100 leukocytes 4 % 0-10 Automated blood basophils/100 leukocytes 1 % 0-10 Blood neutrophils automated count (number/volume) 1.6 10*3 1.8-7.8 Blood lymphocytes automated count (number/volume) 1.8 10*3 1.0-4.0 Blood monocytes automated count (number/volume) 0. 6 10*3 0.0-1.0 Automated eosinophil count 0.2 10*3/uL 0 .0-0.3 Automated blood basophil count (count/volume) 0.0 10*3/uL 0.0-0.1 Whole blood basic metabolic panel - 01/14 05:40 Serum or plasma sodium measurement (moles/volume) 137 mmol/L 135-145 Serum or plasma potassium measurement (moles/volume) 3.4 mmol/L 3.6-5.0 Serum or plasma chloride measurement (moles/volume) 107 mmol/L 98-107 Carbon dioxide 19 mmol/L 21-32 Serum or plasma anion gap determination (moles/volume) 11 mmol/L 5-14 Serum or plasma urea nitrogen measurement (mass/volume ) 3 mg/dL 7-18 Serum or plasma creatinine measurement (mass/volume) 0.82 mg/dL 0.60-1.30 Serum or plasma urea nitrogen/creatinine mass ratio 4 NRG Serum or plasma creatinine measurement w ith calculation of estimated glomerular filtration rate > NRG Serum or plasma glucose measurement (mass/volume) 145 mg/dL 70-105 Serum or plasma calcium measurement (mass/volume) 8.1 mg/dL 8.5-10.1 Whole blood basic metabolic panel - 01/14 13:35 Serum or plasma sodium measurement (moles/volume) 135 mmol/L 135-145 Serum or plasma potassium measurement (moles/volume) 3.7 mmol/L 3.6-5.0 Serum or plasma chloride measurement (moles/volume) 104 mmol/L 98-107 Carbon dioxide 20 mmol/L 21-32 Serum or plasma anion gap determination (moles/volume) 11 mmol/L 5-14 Serum or plasma urea nitrogen measurement (mass/volume ) 4 mg/dL 7-18 Serum or plasma creatinine measurement (mass/volume) 0.95 mg/dL 0.60-1.30 Serum or plasma urea nitrogen/creatinine mass ratio 4 NRG Serum or plasma creatinine measurement w ith calculation of estimated glomerular filtration rate > NRG Serum or plasma glucose measurement (mass/volume) 230 mg/dL 70-105 Serum or plasma calcium measurement (mass/volume) 8.4 mg/dL 8.5-10.1 Magnesium - 01/23/19 13:35 Magnesium 1.7 mg/dL 1.8-2.4 Complete blood count (CBC) with automate d white blood cell (WBC) differential - 01/24/19 06:00 Blood leukocytes automated count (number/volume) 4.8 10*3/uL 4.3-11.0 Blood erythrocytes automated count (number/volume) 3.34 10*6/uL 4.35-5.85 Venous blood hemoglobin measurement (mass/volume) 9.3 g/dL 13.3-17.7 Blood hematocrit (volume fraction) 28 % 40-54 Automated erythrocyte mean corpuscular volume 84 [ foz_us] 80-99 Automated erythrocyte mean corpuscular h emoglobin (mass per erythrocyte) 28 pg 25-34 Automated erythrocyte mean corpuscular h emoglobin concentration measurement (mass/volume) 33 g/dL 32-36 Automated erythrocyte distribution width ratio 23. 4 % 10.0- 14.5 Automated blood platelet count (count/volume) 151 10*3/uL 130-400 Automated blood platelet mean volume measurement 9.2 [foz_us] 7.4-10.4 Automated blood neutrophils/100 leukocytes 38 % 42-75 Automated blood lymphocytes/100 leukocytes 47 % 12-44 Blood monocytes/100 leukocytes 11 % 0-12 Automated blood eosinophils/100 leukocytes 3 % 0-10 Automated blood basophils/100 leukocytes 1 % 0-10 Blood neutrophils automated count (number/volume) 1.8 10*3 1.8-7.8 Blood lymphocytes automated count (number/volume) 2.3 10*3 1.0-4.0 Blood monocytes automated count (number/volume) 0. 5 10*3 0.0-1.0 Automated eosinophil count 0.1 10*3/uL 0 .0-0.3 Automated blood basophil count (count/volume) 0.0 10*3/uL 0.0-0.1 Whole blood basic metabolic panel - 01/14 08/04 06:00 Serum or plasma sodium measurement (moles/volume) 137 mmol/L 135-145 Serum or plasma potassium measurement (moles/volume) 3.7 mmol/L 3.6-5.0 Serum or plasma chloride measurement (moles/volume) 102 mmol/L 98-107 Carbon dioxide 24 mmol/L 21-32 Serum or plasma anion gap determination (moles/volume) 11 mmol/L 5-14 Serum or plasma urea nitrogen measurement (mass/volume ) 4 mg/dL 7-18 Serum or plasma creatinine measurement (mass/volume) 0.86 mg/dL 0.60-1.30 Serum or plasma urea nitrogen/creatinine mass ratio 5 NRG Serum or plasma creatinine measurement w ith calculation of estimated glomerular filtration rate > NRG Serum or plasma glucose measurement (mass/volume) 141 mg/dL 70-105 Serum or plasma calcium measurement (mass/volume) 8.4 mg/dL 8.5-10.1 Magnesium - 01/24/19 06:00 Magnesium 1.5 mg/dL 1.8-2.4 Methicillin resistant Staphylococcus aur eus (MRSA) screening culture - 01/24/19 15:55 Methicillin resistant Staphylococcus aureus (MRSA) scr eening culture NEG NRG Complete blood count (CBC) with automate d white blood cell (WBC) differential - 02/06/19 10:40 Blood leukocytes automated count (number/volume) 3.4 10*3/uL 4.3-11.0 Blood erythrocytes automated count (number/volume) 3.54 10*6/uL 4.35-5.85 Venous blood hemoglobin measurement (mass/volume) 10.3 g/dL 13.3-17.7 Blood hematocrit (volume fraction) 33 % 40-54 Automated erythrocyte mean corpuscular volume 92 [ foz_us] 80-99 Automated erythrocyte mean corpuscular h emoglobin (mass per erythrocyte) 29 pg 25-34 Automated erythrocyte mean corpuscular h emoglobin concentration measurement (mass/volume) 32 g/dL 32-36 Automated erythrocyte distribution width ratio 24. 4 % 10.0- 14.5 Automated blood platelet count (count/volume) 188 10*3/uL 130-400 Automated blood platelet mean volume measurement 9.3 [foz_us] 7.4-10.4 Automated blood neutrophils/100 leukocytes 44 % 42-75 Automated blood lymphocytes/100 leukocytes 41 % 12-44 Blood monocytes/100 leukocytes 9 % 0-12 Automated blood eosinophils/100 leukocytes 5 % 0-10 Automated blood basophils/100 leukocytes 1 % 0-10 Blood neutrophils automated count (number/volume) 1.5 10*3 1.8-7.8 Blood lymphocytes automated count (number/volume) 1.4 10*3 1.0-4.0 Blood monocytes automated count (number/volume) 0. 3 10*3 0.0-1.0 Automated eosinophil count 0.2 10*3/uL 0 .0-0.3 Automated blood basophil count (count/volume) 0.0 10*3/uL 0.0-0.1 Whole blood basic metabolic panel - 01/15 11/02 10:40 Serum or plasma sodium measurement (moles/volume) 133 mmol/L 135-145 Serum or plasma potassium measurement (moles/volume) 4.5 mmol/L 3.6-5.0 Serum or plasma chloride measurement (moles/volume) 96 mmol/L 98-107 Carbon dioxide 26 mmol/L 21-32 Serum or plasma anion gap determination (moles/volume) 11 mmol/L 5-14 Serum or plasma urea nitrogen measurement (mass/volume ) 10 mg/dL 7-18 Serum or plasma creatinine measurement (mass/volume) 1.18 mg/dL 0.60-1.30 Serum or plasma urea nitrogen/creatinine mass ratio 8 NRG Serum or plasma creatinine measurement w ith calculation of estimated glomerular filtration rate > NRG Serum or plasma glucose measurement (mass/volume) 145 mg/dL 70-105 Serum or plasma calcium measurement (mass/volume) 9.0 mg/dL 8.5-10.1 Complete blood count (CBC) with automate d white blood cell (WBC) differential - 02/13/19 13:00 Blood leukocytes automated count (number/volume) 6.4 10*3/uL 4.3-11.0 Blood erythrocytes automated count (number/volume) 3.72 10*6/uL 4.35-5.85 Venous blood hemoglobin measurement (mass/volume) 11.1 g/dL 13.3-17.7 Blood hematocrit (volume fraction) 34 % 40-54 Automated erythrocyte mean corpuscular volume 91 [ foz_us] 80-99 Automated erythrocyte mean corpuscular h emoglobin (mass per erythrocyte) 30 pg 25-34 Automated erythrocyte mean corpuscular h emoglobin concentration measurement (mass/volume) 33 g/dL 32-36 Automated erythrocyte distribution width ratio 22. 9 % 10.0- 14.5 Automated blood platelet count (count/volume) 212 10*3/uL 130-400 Automated blood platelet mean volume measurement 9.2 [foz_us] 7.4-10.4 Automated blood neutrophils/100 leukocytes 57 % 42-75 Automated blood lymphocytes/100 leukocytes 32 % 12-44 Blood monocytes/100 leukocytes 8 % 0-12 Automated blood eosinophils/100 leukocytes 3 % 0-10 Automated blood basophils/100 leukocytes 1 % 0-10 Blood neutrophils automated count (number/volume) 3.7 10*3 1.8-7.8 Blood lymphocytes automated count (number/volume) 2.1 10*3 1.0-4.0 Blood monocytes automated count (number/volume) 0. 5 10*3 0.0-1.0 Automated eosinophil count 0.2 10*3/uL 0 .0-0.3 Automated blood basophil count (count/volume) 0.0 10*3/uL 0.0-0.1 Comprehensive metabolic panel - 02/13/19 13:00 Serum or plasma sodium measurement (moles/volume) 131 mmol/L 135-145 Serum or plasma potassium measurement (moles/volume) 4.4 mmol/L 3.6-5.0 Serum or plasma chloride measurement (moles/volume) 100 mmol/L 98-107 Carbon dioxide 21 mmol/L 21-32 Serum or plasma anion gap determination (moles/volume) 10 mmol/L 5-14 Serum or plasma urea nitrogen measurement (mass/volume ) 11 mg/dL 7-18 Serum or plasma creatinine measurement (mass/volume) 1.10 mg/dL 0.60-1.30 Serum or plasma urea nitrogen/creatinine mass ratio 10 NRG Serum or plasma creatinine measurement w ith calculation of estimated glomerular filtration rate > NRG Serum or plasma glucose measurement (mass/volume) 128 mg/dL 70-105 Serum or plasma calcium measurement (mass/volume) 9.3 mg/dL 8.5-10.1 Serum or plasma total bilirubin measurement (mass/volu me) 0.3 mg/dL 0.1-1.0 Serum or plasma alkaline phosphatase stuart surement (enzymatic activity/volume) 69 U/L 40-136 Serum or plasma aspartate aminotransfera se measurement (enzymatic activity/volume) 18 U/L 5-34 Serum or plasma alanine aminotransferase measurement (enzymatic activity/volume) 12 U/L 0-55 Serum or plasma protein measurement (mass/volume) 6.8 g/dL 6.4-8.2 Serum or plasma albumin measurement (mass/volume) 3.8 g/dL 3.2-4.5 CALCIUM CORRECTED 9.5 mg/dL 8.5-10.1 Magnesium - 02/13/19 13:00 Magnesium 1.5 mg/dL 1.8-2.4 Whole blood basic metabolic panel - 04/04 10:03 Serum or plasma sodium measurement (moles/volume) 133 mmol/L 135-145 Serum or plasma potassium measurement (moles/volume) 4.6 mmol/L 3.6-5.0 Serum or plasma chloride measurement (moles/volume) 94 mmol/L 98-107 Carbon dioxide 22 mmol/L 21-32 Serum or plasma anion gap determination (moles/volume) 17 mmol/L 5-14 Serum or plasma urea nitrogen measurement (mass/volume ) 13 mg/dL 7-18 Serum or plasma creatinine measurement (mass/volume) 0.98 mg/dL 0.60-1.30 Serum or plasma urea nitrogen/creatinine mass ratio 13 NRG Serum or plasma creatinine measurement w ith calculation of estimated glomerular filtration rate > NRG Serum or plasma glucose measurement (mass/volume) 183 mg/dL 70-105 Serum or plasma calcium measurement (mass/volume) 9.3 mg/dL 8.5-10.1 Complete blood count (CBC) with automate d white blood cell (WBC) differential - 02/22/19 10:06 Blood leukocytes automated count (number/volume) 6.9 10*3/uL 4.3-11.0 Blood erythrocytes automated count (number/volume) 3.89 10*6/uL 4.35-5.85 Venous blood hemoglobin measurement (mass/volume) 11.6 g/dL 13.3-17.7 Blood hematocrit (volume fraction) 36 % 40-54 Automated erythrocyte mean corpuscular volume 93 [ foz_us] 80-99 Automated erythrocyte mean corpuscular h emoglobin (mass per erythrocyte) 30 pg 25-34 Automated erythrocyte mean corpuscular h emoglobin concentration measurement (mass/volume) 32 g/dL 32-36 Automated erythrocyte distribution width ratio 19. 9 % 10.0- 14.5 Automated blood platelet count (count/volume) 162 10*3/uL 130-400 Automated blood platelet mean volume measurement 9.5 [foz_us] 7.4-10.4 Automated blood neutrophils/100 leukocytes 57 % 42-75 Automated blood lymphocytes/100 leukocytes 33 % 12-44 Blood monocytes/100 leukocytes 7 % 0-12 Automated blood eosinophils/100 leukocytes 3 % 0-10 Automated blood basophils/100 leukocytes 0 % 0-10 Blood neutrophils automated count (number/volume) 3.9 10*3 1.8-7.8 Blood lymphocytes automated count (number/volume) 2.3 10*3 1.0-4.0 Blood monocytes automated count (number/volume) 0. 5 10*3 0.0-1.0 Automated eosinophil count 0.2 10*3/uL 0 .0-0.3 Automated blood basophil count (count/volume) 0.0 10*3/uL 0.0-0.1 Complete blood count (CBC) with automate d white blood cell (WBC) differential - 02/25/19 10:10 Blood leukocytes automated count (number/volume) 8.2 10*3/uL 4.3-11.0 Blood erythrocytes automated count (number/volume) 3.36 10*6/uL 4.35-5.85 Venous blood hemoglobin measurement (mass/volume) 10.4 g/dL 13.3-17.7 Blood hematocrit (volume fraction) 31 % 40-54 Automated erythrocyte mean corpuscular volume 92 [ foz_us] 80-99 Automated erythrocyte mean corpuscular h emoglobin (mass per erythrocyte) 31 pg 25-34 Automated erythrocyte mean corpuscular h emoglobin concentration measurement (mass/volume) 34 g/dL 32-36 Automated erythrocyte distribution width ratio 19. 0 % 10.0- 14.5 Automated blood platelet count (count/volume) 171 10*3/uL 130-400 Automated blood platelet mean volume measurement 9.5 [foz_us] 7.4-10.4 Automated blood neutrophils/100 leukocytes 72 % 42-75 Automated blood lymphocytes/100 leukocytes 22 % 12-44 Blood monocytes/100 leukocytes 5 % 0-12 Automated blood eosinophils/100 leukocytes 1 % 0-10 Automated blood basophils/100 leukocytes 0 % 0-10 Blood neutrophils automated count (number/volume) 5.9 10*3 1.8-7.8 Blood lymphocytes automated count (number/volume) 1.8 10*3 1.0-4.0 Blood monocytes automated count (number/volume) 0. 4 10*3 0.0-1.0 Automated eosinophil count 0.1 10*3/uL 0 .0-0.3 Automated blood basophil count (count/volume) 0.0 10*3/uL 0.0-0.1 Comprehensive metabolic panel - 02/25/19 10:10 Serum or plasma sodium measurement (moles/volume) 131 mmol/L 135-145 Serum or plasma potassium measurement (moles/volume) 4.2 mmol/L 3.6-5.0 Serum or plasma chloride measurement (moles/volume) 94 mmol/L 98-107 Carbon dioxide 22 mmol/L 21-32 Serum or plasma anion gap determination (moles/volume) 15 mmol/L 5-14 Serum or plasma urea nitrogen measurement (mass/volume ) 13 mg/dL 7-18 Serum or plasma creatinine measurement (mass/volume) 0.93 mg/dL 0.60-1.30 Serum or plasma urea nitrogen/creatinine mass ratio 14 NRG Serum or plasma creatinine measurement w ith calculation of estimated glomerular filtration rate > NRG Serum or plasma glucose measurement (mass/volume) 192 mg/dL 70-105 Serum or plasma calcium measurement (mass/volume) 8.7 mg/dL 8.5-10.1 Serum or plasma total bilirubin measurement (mass/volu me) 0.3 mg/dL 0.1-1.0 Serum or plasma alkaline phosphatase stuart surement (enzymatic activity/volume) 65 U/L 40-136 Serum or plasma aspartate aminotransfera se measurement (enzymatic activity/volume) 17 U/L 5-34 Serum or plasma alanine aminotransferase measurement (enzymatic activity/volume) 11 U/L 0-55 Serum or plasma protein measurement (mass/volume) 6.4 g/dL 6.4-8.2 Serum or plasma albumin measurement (mass/volume) 3.6 g/dL 3.2-4.5 CALCIUM CORRECTED 9.0 mg/dL 8.5-10.1 Magnesium - 02/25/19 10:10 Magnesium 1.3 mg/dL 1.8-2.4 Complete blood count (CBC) with automate d white blood cell (WBC) differential - 03/06/19 18:00 Blood leukocytes automated count (number/volume) 4.2 10*3/uL 4.3-11.0 Blood erythrocytes automated count (number/volume) 3.58 10*6/uL 4.35-5.85 Venous blood hemoglobin measurement (mass/volume) 11.1 g/dL 13.3-17.7 Blood hematocrit (volume fraction) 33 % 40-54 Automated erythrocyte mean corpuscular volume 92 [ foz_us] 80-99 Automated erythrocyte mean corpuscular h emoglobin (mass per erythrocyte) 31 pg 25-34 Automated erythrocyte mean corpuscular h emoglobin concentration measurement (mass/volume) 34 g/dL 32-36 Automated erythrocyte distribution width ratio 19. 2 % 10.0- 14.5 Automated blood platelet count (count/volume) 145 10*3/uL 130-400 Automated blood platelet mean volume measurement 9.1 [foz_us] 7.4-10.4 Automated blood neutrophils/100 leukocytes 67 % 42-75 Automated blood lymphocytes/100 leukocytes 29 % 12-44 Blood monocytes/100 leukocytes 2 % 0-12 Automated blood eosinophils/100 leukocytes 1 % 0-10 Automated blood basophils/100 leukocytes 1 % 0-10 Blood neutrophils automated count (number/volume) 2.9 10*3 1.8-7.8 Blood lymphocytes automated count (number/volume) 1.2 10*3 1.0-4.0 Blood monocytes automated count (number/volume) 0. 1 10*3 0.0-1.0 Automated eosinophil count 0.1 10*3/uL 0 .0-0.3 Automated blood basophil count (count/volume) 0.0 10*3/uL 0.0-0.1 Comprehensive metabolic panel - 03/06/19 18:00 Serum or plasma sodium measurement (moles/volume) 135 mmol/L 135-145 Serum or plasma potassium measurement (moles/volume) 3.8 mmol/L 3.6-5.0 Serum or plasma chloride measurement (moles/volume) 101 mmol/L 98-107 Carbon dioxide 23 mmol/L 21-32 Serum or plasma anion gap determination (moles/volume) 11 mmol/L 5-14 Serum or plasma urea nitrogen measurement (mass/volume ) 7 mg/dL 7-18 Serum or plasma creatinine measurement (mass/volume) 0.98 mg/dL 0.60-1.30 Serum or plasma urea nitrogen/creatinine mass ratio 7 NRG Serum or plasma creatinine measurement w ith calculation of estimated glomerular filtration rate > NRG Serum or plasma glucose measurement (mass/volume) 191 mg/dL 70-105 Serum or plasma calcium measurement (mass/volume) 9.1 mg/dL 8.5-10.1 Serum or plasma total bilirubin measurement (mass/volu me) 0.3 mg/dL 0.1-1.0 Serum or plasma alkaline phosphatase stuart surement (enzymatic activity/volume) 88 U/L 40-136 Serum or plasma aspartate aminotransfera se measurement (enzymatic activity/volume) 29 U/L 5-34 Serum or plasma alanine aminotransferase measurement (enzymatic activity/volume) 23 U/L 0-55 Serum or plasma protein measurement (mass/volume) 7.3 g/dL 6.4-8.2 Serum or plasma albumin measurement (mass/volume) 3.8 g/dL 3.2-4.5 CALCIUM CORRECTED 9.3 mg/dL 8.5-10.1 Serum or plasma troponin i.cardiac measu rement (mass/volume) - 03/06/19 18:00 Serum or plasma troponin i.cardiac measurement (mass/v olume) < ng/mL <0.028 Serum or plasma lithium measurement (mol es/volume) - 03/06/19 18:00 BNP PT 178.4 pg/mL <100.0 Complete urinalysis with reflex to cultu re - 03/06/19 19:25 Urine color determination YELLOW NRG Urine clarity determination CLEAR NR G Urine pH measurement by test strip 7 5-9 Specific gravity of urine by test strip 1.005 1.016-1.022 Urine protein assay by test strip, semi-quantitative NEGATIVE NEGATIVE Urine glucose detection by automated test strip 4+ NEGATIVE Erythrocytes detection in urine sediment by light micr oscopy NEGATIVE NEGATIVE Urine ketones detection by automated test strip NE GATIVE NEGATIVE Urine nitrite detection by test strip NEGATIVE NEGATIVE Urine total bilirubin detection by test strip NEGA TIVE NEGATIVE Urine urobilinogen measurement by automated test strip (mass/volume) NORMAL NORMAL Urine leukocyte esterase detection by dipstick NEG ATIVE NEGATIVE Automated urine sediment erythrocyte cou nt by microscopy (number/high power field) NONE NRG Automated urine sediment leukocyte count by microscopy (number/high power field) NONE NRG Bacteria detection in urine sediment by light microsco py TRACE NRG Crystals detection in urine sediment by light microsco py NONE NRG Casts detection in urine sediment by light microscopy NONE NRG Mucus detection in urine sediment by light microscopy NEGATIVE NRG Complete urinalysis with reflex to culture NO NRG Serum or plasma troponin i.cardiac measu rement (mass/volume) - 03/06/19 19:58 Serum or plasma troponin i.cardiac measurement (mass/v olume) < ng/mL <0.028 Serum or plasma troponin i.cardiac measu rement (mass/volume) - 03/06/19 23:13 Serum or plasma troponin i.cardiac measurement (mass/v olume) < ng/mL <0.028 Complete blood count (CBC) with automate d white blood cell (WBC) differential - 03/14/19 10:07 Blood leukocytes automated count (number/volume) 5.7 10*3/uL 4.3-11.0 Blood erythrocytes automated count (number/volume) 4.01 10*6/uL 4.35-5.85 Venous blood hemoglobin measurement (mass/volume) 12.5 g/dL 13.3-17.7 Blood hematocrit (volume fraction) 37 % 40-54 Automated erythrocyte mean corpuscular volume 93 [ foz_us] 80-99 Automated erythrocyte mean corpuscular h emoglobin (mass per erythrocyte) 31 pg 25-34 Automated erythrocyte mean corpuscular h emoglobin concentration measurement (mass/volume) 33 g/dL 32-36 Automated erythrocyte distribution width ratio 18. 8 % 10.0- 14.5 Automated blood platelet count (count/volume) 78 1 0*3/uL 130-400 Automated blood platelet mean volume measurement 10.3 [foz_us] 7.4-10.4 Automated blood neutrophils/100 leukocytes 61 % 42-75 Automated blood lymphocytes/100 leukocytes 28 % 12-44 Blood monocytes/100 leukocytes 5 % 0-12 Automated blood eosinophils/100 leukocytes 6 % 0-10 Automated blood basophils/100 leukocytes 0 % 0-10 Blood neutrophils automated count (number/volume) 3.5 10*3 1.8-7.8 Blood lymphocytes automated count (number/volume) 1.6 10*3 1.0-4.0 Blood monocytes automated count (number/volume) 0. 3 10*3 0.0-1.0 Automated eosinophil count 0.4 10*3/uL 0 .0-0.3 Automated blood basophil count (count/volume) 0.0 10*3/uL 0.0-0.1 Whole blood basic metabolic panel - 02/15 04/04 10:07 Serum or plasma sodium measurement (moles/volume) 134 mmol/L 135-145 Serum or plasma potassium measurement (moles/volume) 4.4 mmol/L 3.6-5.0 Serum or plasma chloride measurement (moles/volume) 101 mmol/L 98-107 Carbon dioxide 20 mmol/L 21-32 Serum or plasma anion gap determination (moles/volume) 13 mmol/L 5-14 Serum or plasma urea nitrogen measurement (mass/volume ) 14 mg/dL 7-18 Serum or plasma creatinine measurement (mass/volume) 1.07 mg/dL 0.60-1.30 Serum or plasma urea nitrogen/creatinine mass ratio 13 NRG Serum or plasma creatinine measurement w ith calculation of estimated glomerular filtration rate > NRG Serum or plasma glucose measurement (mass/volume) 161 mg/dL 70-105 Serum or plasma calcium measurement (mass/volume) 9.3 mg/dL 8.5-10.1 Serum or plasma cortisol measurement 1 h our post dose corticotropin (mass/volume) - 03/14/19 10:07 Serum or plasma cortisol measurement 1 h our post dose corticotropin (mass/volume) 20.6 % NRG Serum or plasma cortisol measurement 30 minutes post dose corticotropin(mass/volume) - 03/14/19 10:07 Serum or plasma cortisol measurement 30 minutes post dose corticotropin(mass/volume) 18.3 % NRG Serum or plasma cortisol measurement at baseline (mass/volume) - 03/14/19 10:07 Serum or plasma cortisol measurement at baseline (mass /volume) 12.0 % NRG Serum or plasma ACTH stimulation test us ing IM corticosteroids - 03/14/19 10:07 Serum or plasma ACTH stimulation test using IM cortico steroids NRG Influenza virus A and B antigen detectio n - 03/16/19 20:45 Influenza virus A and B antigen detection NG NRG Complete blood count (CBC) with automate d white blood cell (WBC) differential - 03/16/19 20:50 Blood leukocytes automated count (number/volume) 4.4 10*3/uL 4.3-11.0 Blood erythrocytes automated count (number/volume) 3.20 10*6/uL 4.35-5.85 Venous blood hemoglobin measurement (mass/volume) 10.1 g/dL 13.3-17.7 Blood hematocrit (volume fraction) 30 % 40-54 Automated erythrocyte mean corpuscular volume 93 [ foz_us] 80-99 Automated erythrocyte mean corpuscular h emoglobin (mass per erythrocyte) 32 pg 25-34 Automated erythrocyte mean corpuscular h emoglobin concentration measurement (mass/volume) 34 g/dL 32-36 Automated erythrocyte distribution width ratio 17. 7 % 10.0- 14.5 Automated blood platelet count (count/volume) 59 1 0*3/uL 130-400 Automated blood platelet mean volume measurement 10.3 [foz_us] 7.4-10.4 Automated blood neutrophils/100 leukocytes 54 % 42-75 Automated blood lymphocytes/100 leukocytes 36 % 12-44 Blood monocytes/100 leukocytes 9 % 0-12 Automated blood eosinophils/100 leukocytes 1 % 0-10 Automated blood basophils/100 leukocytes 0 % 0-10 Blood neutrophils automated count (number/volume) 2.4 10*3 1.8-7.8 Blood lymphocytes automated count (number/volume) 1.6 10*3 1.0-4.0 Blood monocytes automated count (number/volume) 0. 4 10*3 0.0-1.0 Automated eosinophil count 0.0 10*3/uL 0 .0-0.3 Automated blood basophil count (count/volume) 0.0 10*3/uL 0.0-0.1 PT panel in platelet poor plasma by coag ulation assay - 03/16/19 20:50 Prothrombin time (PT) in platelet poor plasma by coagu lation assay 15.3 s 12.2-14.7 INR in platelet poor plasma or blood by coagulation as say 1.2 0.8-1.4 Activated partial thromboplastin time (a PTT) in platelet poor plasma bycoagulation assay - 03/16/19 20:50 Activated partial thromboplastin time (a PTT) in platelet poor plasma bycoagulation assay 28 s 24-35 Comprehensive metabolic panel - 03/16/19 20:50 Serum or plasma sodium measurement (moles/volume) 129 mmol/L 135-145 Serum or plasma potassium measurement (moles/volume) 4.2 mmol/L 3.6-5.0 Serum or plasma chloride measurement (moles/volume) 94 mmol/L 98-107 Carbon dioxide 21 mmol/L 21-32 Serum or plasma anion gap determination (moles/volume) 14 mmol/L 5-14 Serum or plasma urea nitrogen measurement (mass/volume ) 13 mg/dL 7-18 Serum or plasma creatinine measurement (mass/volume) 1.06 mg/dL 0.60-1.30 Serum or plasma urea nitrogen/creatinine mass ratio 12 NRG Serum or plasma creatinine measurement w ith calculation of estimated glomerular filtration rate > NRG Serum or plasma glucose measurement (mass/volume) 184 mg/dL 70-105 Serum or plasma calcium measurement (mass/volume) 8.4 mg/dL 8.5-10.1 Serum or plasma total bilirubin measurement (mass/volu me) 0.4 mg/dL 0.1-1.0 Serum or plasma alkaline phosphatase stuart surement (enzymatic activity/volume) 66 U/L 40-136 Serum or plasma aspartate aminotransfera se measurement (enzymatic activity/volume) 18 U/L 5-34 Serum or plasma alanine aminotransferase measurement (enzymatic activity/volume) 17 U/L 0-55 Serum or plasma protein measurement (mass/volume) 6.2 g/dL 6.4-8.2 Serum or plasma albumin measurement (mass/volume) 3.5 g/dL 3.2-4.5 CALCIUM CORRECTED 8.8 mg/dL 8.5-10.1 Blood lactic acid measurement (moles/vol ume) - 03/16/19 20:50 Blood lactic acid measurement (moles/volume) 2.52 mmol/L 0.50-2.00 Magnesium - 03/16/19 20:50 Magnesium 1.6 mg/dL 1.6-2.4 Bacterial blood culture - 03/16/19 20:50 Bacterial blood culture NG NRG Complete urinalysis with reflex to cultu re - 03/16/19 21:38 Urine color determination YELLOW NRG Urine clarity determination CLEAR NR G Urine pH measurement by test strip 6.0 5-9 Specific gravity of urine by test strip 1.020 1.016-1.022 Urine protein assay by test strip, semi-quantitative NEGATIVE NEGATIVE Urine glucose detection by automated test strip 3+ NEGATIVE Erythrocytes detection in urine sediment by light micr oscopy TRACE-I NEGATIVE Urine ketones detection by automated test strip NE GATIVE NEGATIVE Urine nitrite detection by test strip NEGATIVE NEGATIVE Urine total bilirubin detection by test strip NEGA TIVE NEGATIVE Urine urobilinogen measurement by automated test strip (mass/volume) 0.2 mg/dL NORMAL Urine leukocyte esterase detection by dipstick NEG ATIVE NEGATIVE Automated urine sediment erythrocyte cou nt by microscopy (number/high power field) [HPF] NRG Crystals detection in urine sediment by light microsco py NONE NRG Casts detection in urine sediment by light microscopy NONE NRG Mucus detection in urine sediment by light microscopy NEGATIVE NRG Complete urinalysis with reflex to culture NO NRG Bacterial blood culture - 03/16/19 22:10 Bacterial blood culture NG NRG Complete blood count (CBC) with automate d white blood cell (WBC) differential - 03/17/19 05:05 Blood leukocytes automated count (number/volume) 4.6 10*3/uL 4.3-11.0 Blood erythrocytes automated count (number/volume) 3.08 10*6/uL 4.35-5.85 Venous blood hemoglobin measurement (mass/volume) 9.6 g/dL 13.3-17.7 Blood hematocrit (volume fraction) 29 % 40-54 Automated erythrocyte mean corpuscular volume 94 [ foz_us] 80-99 Automated erythrocyte mean corpuscular h emoglobin (mass per erythrocyte) 31 pg 25-34 Automated erythrocyte mean corpuscular h emoglobin concentration measurement (mass/volume) 33 g/dL 32-36 Automated erythrocyte distribution width ratio 17. 7 % 10.0- 14.5 Automated blood platelet count (count/volume) 48 1 0*3/uL 130-400 Automated blood platelet mean volume measurement 10.5 [foz_us] 7.4-10.4 Automated blood neutrophils/100 leukocytes 43 % 42-75 Automated blood lymphocytes/100 leukocytes 47 % 12-44 Blood monocytes/100 leukocytes 10 % 0-12 Automated blood eosinophils/100 leukocytes 1 % 0-10 Automated blood basophils/100 leukocytes 0 % 0-10 Blood neutrophils automated count (number/volume) 2.0 10*3 1.8-7.8 Blood lymphocytes automated count (number/volume) 2.2 10*3 1.0-4.0 Blood monocytes automated count (number/volume) 0. 5 10*3 0.0-1.0 Automated eosinophil count 0.0 10*3/uL 0 .0-0.3 Automated blood basophil count (count/volume) 0.0 10*3/uL 0.0-0.1 Comprehensive metabolic panel - 03/17/19 05:05 Serum or plasma sodium measurement (moles/volume) 132 mmol/L 135-145 Serum or plasma potassium measurement (moles/volume) 4.6 mmol/L 3.6-5.0 Serum or plasma chloride measurement (moles/volume) 102 mmol/L 98-107 Carbon dioxide 21 mmol/L 21-32 Serum or plasma anion gap determination (moles/volume) 9 mmol/L 5-14 Serum or plasma urea nitrogen measurement (mass/volume ) 12 mg/dL 7-18 Serum or plasma creatinine measurement (mass/volume) 1.03 mg/dL 0.60-1.30 Serum or plasma urea nitrogen/creatinine mass ratio 12 NRG Serum or plasma creatinine measurement w ith calculation of estimated glomerular filtration rate > NRG Serum or plasma glucose measurement (mass/volume) 153 mg/dL 70-105 Serum or plasma calcium measurement (mass/volume) 8.1 mg/dL 8.5-10.1 Serum or plasma total bilirubin measurement (mass/volu me) 0.4 mg/dL 0.1-1.0 Serum or plasma alkaline phosphatase stuart surement (enzymatic activity/volume) 55 U/L 40-136 Serum or plasma aspartate aminotransfera se measurement (enzymatic activity/volume) 16 U/L 5-34 Serum or plasma alanine aminotransferase measurement (enzymatic activity/volume) 15 U/L 0-55 Serum or plasma protein measurement (mass/volume) 5.5 g/dL 6.4-8.2 Serum or plasma albumin measurement (mass/volume) 3.1 g/dL 3.2-4.5 CALCIUM CORRECTED 8.8 mg/dL 8.5-10.1 C DIFFICILE AG + TOXIN A/B. - 03/17/19 0 8:30 RESULTS NEGATIVE FOR ANTIGEN AND TOXIN A/B NR Stool bacteria identification by culture - 03/17/19 08:30 QUANTITY OF GROWTH . NRG Stool bacteria identification by culture SEE KENRICK Castro NRG Complete blood count (CBC) with automate d white blood cell (WBC) differential - 03/18/19 05:15 Blood leukocytes automated count (number/volume) 2.8 10*3/uL 4.3-11.0 Blood erythrocytes automated count (number/volume) 2.75 10*6/uL 4.35-5.85 Venous blood hemoglobin measurement (mass/volume) 8.5 g/dL 13.3-17.7 Blood hematocrit (volume fraction) 26 % 40-54 Automated erythrocyte mean corpuscular volume 93 [ foz_us] 80-99 Automated erythrocyte mean corpuscular h emoglobin (mass per erythrocyte) 31 pg 25-34 Automated erythrocyte mean corpuscular h emoglobin concentration measurement (mass/volume) 33 g/dL 32-36 Automated erythrocyte distribution width ratio 17. 7 % 10.0- 14.5 Automated blood platelet count (count/volume) 48 1 0*3/uL 130-400 Automated blood platelet mean volume measurement 10.2 [foz_us] 7.4-10.4 Automated blood neutrophils/100 leukocytes 33 % 42-75 Automated blood lymphocytes/100 leukocytes 50 % 12-44 Blood monocytes/100 leukocytes 16 % 0-12 Automated blood eosinophils/100 leukocytes 1 % 0-10 Automated blood basophils/100 leukocytes 0 % 0-10 Blood neutrophils automated count (number/volume) 0.9 10*3 1.8-7.8 Blood lymphocytes automated count (number/volume) 1.4 10*3 1.0-4.0 Blood monocytes automated count (number/volume) 0. 5 10*3 0.0-1.0 Automated eosinophil count 0.0 10*3/uL 0 .0-0.3 Automated blood basophil count (count/volume) 0.0 10*3/uL 0.0-0.1 Comprehensive metabolic panel - 03/18/19 05:15 Serum or plasma sodium measurement (moles/volume) 132 mmol/L 135-145 Serum or plasma potassium measurement (moles/volume) 3.9 mmol/L 3.6-5.0 Serum or plasma chloride measurement (moles/volume) 104 mmol/L 98-107 Carbon dioxide 21 mmol/L 21-32 Serum or plasma anion gap determination (moles/volume) 7 mmol/L 5-14 Serum or plasma urea nitrogen measurement (mass/volume ) 9 mg/dL 7-18 Serum or plasma creatinine measurement (mass/volume) 0.89 mg/dL 0.60-1.30 Serum or plasma urea nitrogen/creatinine mass ratio 10 NRG Serum or plasma creatinine measurement w ith calculation of estimated glomerular filtration rate > NRG Serum or plasma glucose measurement (mass/volume) 176 mg/dL 70-105 Serum or plasma calcium measurement (mass/volume) 7.6 mg/dL 8.5-10.1 Serum or plasma total bilirubin measurement (mass/volu me) 0.4 mg/dL 0.1-1.0 Serum or plasma alkaline phosphatase stuart surement (enzymatic activity/volume) 55 U/L 40-136 Serum or plasma aspartate aminotransfera se measurement (enzymatic activity/volume) 15 U/L 5-34 Serum or plasma alanine aminotransferase measurement (enzymatic activity/volume) 14 U/L 0-55 Serum or plasma protein measurement (mass/volume) 5.0 g/dL 6.4-8.2 Serum or plasma albumin measurement (mass/volume) 2.8 g/dL 3.2-4.5 CALCIUM CORRECTED 8.6 mg/dL 8.5-10.1 Capillary blood glucose measurement by g lucometer (mass/volume) - 03/19/19 09:03 Capillary blood glucose measurement by glucometer (mas s/volume) 185 mg/dL 70-110 Automated blood complete blood count (he mogram) panel - 03/19/19 10:41 Blood leukocytes automated count (number/volume) 2.7 10*3/uL 4.3-11.0 Blood erythrocytes automated count (number/volume) 2.90 10*6/uL 4.35-5.85 Venous blood hemoglobin measurement (mass/volume) 9.1 g/dL 13.3-17.7 Blood hematocrit (volume fraction) 27 % 40-54 Automated erythrocyte mean corpuscular volume 92 [ foz_us] 80-99 Automated erythrocyte mean corpuscular h emoglobin (mass per erythrocyte) 31 pg 25-34 Automated erythrocyte mean corpuscular h emoglobin concentration measurement (mass/volume) 34 g/dL 32-36 Automated erythrocyte distribution width ratio 17. 3 % 10.0- 14.5 Automated blood platelet count (count/volume) 64 1 0*3/uL 130-400 Automated blood platelet mean volume measurement 10.4 [foz_us] 7.4-10.4 Comprehensive metabolic panel - 03/19/19 10:41 Serum or plasma sodium measurement (moles/volume) 129 mmol/L 135-145 Serum or plasma potassium measurement (moles/volume) 3.4 mmol/L 3.6-5.0 Serum or plasma chloride measurement (moles/volume) 104 mmol/L 98-107 Carbon dioxide 20 mmol/L 21-32 Serum or plasma anion gap determination (moles/volume) 5 mmol/L 5-14 Serum or plasma urea nitrogen measurement (mass/volume ) 10 mg/dL 7-18 Serum or plasma creatinine measurement (mass/volume) 0.99 mg/dL 0.60-1.30 Serum or plasma urea nitrogen/creatinine mass ratio 10 NRG Serum or plasma creatinine measurement w ith calculation of estimated glomerular filtration rate > NRG Serum or plasma glucose measurement (mass/volume) 201 mg/dL 70-105 Serum or plasma calcium measurement (mass/volume) 7.7 mg/dL 8.5-10.1 Serum or plasma total bilirubin measurement (mass/volu me) 0.5 mg/dL 0.1-1.0 Serum or plasma alkaline phosphatase stuart surement (enzymatic activity/volume) 53 U/L 40-136 Serum or plasma aspartate aminotransfera se measurement (enzymatic activity/volume) 16 U/L 5-34 Serum or plasma alanine aminotransferase measurement (enzymatic activity/volume) 16 U/L 0-55 Serum or plasma protein measurement (mass/volume) 5.3 g/dL 6.4-8.2 Serum or plasma albumin measurement (mass/volume) 3.0 g/dL 3.2-4.5 CALCIUM CORRECTED 8.5 mg/dL 8.5-10.1 Complete blood count (CBC) with automate d white blood cell (WBC) differential - 03/20/19 06:00 Blood leukocytes automated count (number/volume) 3.0 10*3/uL 4.3-11.0 Blood erythrocytes automated count (number/volume) 2.59 10*6/uL 4.35-5.85 Venous blood hemoglobin measurement (mass/volume) 8.1 g/dL 13.3-17.7 Blood hematocrit (volume fraction) 24 % 40-54 Automated erythrocyte mean corpuscular volume 93 [ foz_us] 80-99 Automated erythrocyte mean corpuscular h emoglobin (mass per erythrocyte) 31 pg 25-34 Automated erythrocyte mean corpuscular h emoglobin concentration measurement (mass/volume) 34 g/dL 32-36 Automated erythrocyte distribution width ratio 17. 5 % 10.0- 14.5 Automated blood platelet count (count/volume) 67 1 0*3/uL 130-400 Automated blood platelet mean volume measurement 10.3 [foz_us] 7.4-10.4 Automated blood neutrophils/100 leukocytes 38 % 42-75 Automated blood lymphocytes/100 leukocytes 43 % 12-44 Blood monocytes/100 leukocytes 18 % 0-12 Automated blood eosinophils/100 leukocytes 1 % 0-10 Automated blood basophils/100 leukocytes 0 % 0-10 Blood neutrophils automated count (number/volume) 1.1 10*3 1.8-7.8 Blood lymphocytes automated count (number/volume) 1.3 10*3 1.0-4.0 Blood monocytes automated count (number/volume) 0. 5 10*3 0.0-1.0 Automated eosinophil count 0.0 10*3/uL 0 .0-0.3 Automated blood basophil count (count/volume) 0.0 10*3/uL 0.0-0.1 Whole blood basic metabolic panel - 11/02 06:00 Serum or plasma sodium measurement (moles/volume) 132 mmol/L 135-145 Serum or plasma potassium measurement (moles/volume) 3.1 mmol/L 3.6-5.0 Serum or plasma chloride measurement (moles/volume) 107 mmol/L 98-107 Carbon dioxide 17 mmol/L 21-32 Serum or plasma anion gap determination (moles/volume) 8 mmol/L 5-14 Serum or plasma urea nitrogen measurement (mass/volume ) 9 mg/dL 7-18 Serum or plasma creatinine measurement (mass/volume) 0.88 mg/dL 0.60-1.30 Serum or plasma urea nitrogen/creatinine mass ratio 10 NRG Serum or plasma creatinine measurement w ith calculation of estimated glomerular filtration rate > NRG Serum or plasma glucose measurement (mass/volume) 225 mg/dL 70-105 Serum or plasma calcium measurement (mass/volume) 7.3 mg/dL 8.5-10.1 Capillary blood glucose measurement by g lucometer (mass/volume) - 03/20/19 07:47 Capillary blood glucose measurement by glucometer (mas s/volume) 242 mg/dL 70-110 Complete blood count (CBC) with automate d white blood cell (WBC) differential - 03/21/19 06:05 Blood leukocytes automated count (number/volume) 3.3 10*3/uL 4.3-11.0 Blood erythrocytes automated count (number/volume) 2.72 10*6/uL 4.35-5.85 Venous blood hemoglobin measurement (mass/volume) 8.7 g/dL 13.3-17.7 Blood hematocrit (volume fraction) 25 % 40-54 Automated erythrocyte mean corpuscular volume 92 [ foz_us] 80-99 Automated erythrocyte mean corpuscular h emoglobin (mass per erythrocyte) 32 pg 25-34 Automated erythrocyte mean corpuscular h emoglobin concentration measurement (mass/volume) 35 g/dL 32-36 Automated erythrocyte distribution width ratio 17. 4 % 10.0- 14.5 Automated blood platelet count (count/volume) 74 1 0*3/uL 130-400 Automated blood platelet mean volume measurement 10.2 [foz_us] 7.4-10.4 Automated blood neutrophils/100 leukocytes 39 % 42-75 Automated blood lymphocytes/100 leukocytes 50 % 12-44 Blood monocytes/100 leukocytes 10 % 0-12 Automated blood eosinophils/100 leukocytes 1 % 0-10 Automated blood basophils/100 leukocytes 0 % 0-10 Blood neutrophils automated count (number/volume) 1.3 10*3 1.8-7.8 Blood lymphocytes automated count (number/volume) 1.7 10*3 1.0-4.0 Blood monocytes automated count (number/volume) 0. 3 10*3 0.0-1.0 Automated eosinophil count 0.0 10*3/uL 0 .0-0.3 Automated blood basophil count (count/volume) 0.0 10*3/uL 0.0-0.1 Whole blood basic metabolic panel - 12/02 06:05 Serum or plasma sodium measurement (moles/volume) 134 mmol/L 135-145 Serum or plasma potassium measurement (moles/volume) 3.1 mmol/L 3.6-5.0 Serum or plasma chloride measurement (moles/volume) 110 mmol/L 98-107 Carbon dioxide 15 mmol/L 21-32 Serum or plasma anion gap determination (moles/volume) 9 mmol/L 5-14 Serum or plasma urea nitrogen measurement (mass/volume ) 7 mg/dL 7-18 Serum or plasma creatinine measurement (mass/volume) 0.83 mg/dL 0.60-1.30 Serum or plasma urea nitrogen/creatinine mass ratio 8 NRG Serum or plasma creatinine measurement w ith calculation of estimated glomerular filtration rate > NRG Serum or plasma glucose measurement (mass/volume) 197 mg/dL 70-105 Serum or plasma calcium measurement (mass/volume) 7.6 mg/dL 8.5-10.1 Magnesium - 03/21/19 06:05 Magnesium 1.6 mg/dL 1.6-2.4 Automated blood complete blood count (he mogram) panel - 03/22/19 06:10 Blood leukocytes automated count (number/volume) 3.9 10*3/uL 4.3-11.0 Blood erythrocytes automated count (number/volume) 2.67 10*6/uL 4.35-5.85 Venous blood hemoglobin measurement (mass/volume) 8.4 g/dL 13.3-17.7 Blood hematocrit (volume fraction) 24 % 40-54 Automated erythrocyte mean corpuscular volume 91 [ foz_us] 80-99 Automated erythrocyte mean corpuscular h emoglobin (mass per erythrocyte) 31 pg 25-34 Automated erythrocyte mean corpuscular h emoglobin concentration measurement (mass/volume) 34 g/dL 32-36 Automated erythrocyte distribution width ratio 17. 8 % 10.0- 14.5 Automated blood platelet count (count/volume) 76 1 0*3/uL 130-400 Automated blood platelet mean volume measurement 9.9 [foz_us] 7.4-10.4 Whole blood basic metabolic panel - 01/02 06:10 Serum or plasma sodium measurement (moles/volume) 136 mmol/L 135-145 Serum or plasma potassium measurement (moles/volume) 3.1 mmol/L 3.6-5.0 Serum or plasma chloride measurement (moles/volume) 110 mmol/L 98-107 Carbon dioxide 17 mmol/L 21-32 Serum or plasma anion gap determination (moles/volume) 9 mmol/L 5-14 Serum or plasma urea nitrogen measurement (mass/volume ) 5 mg/dL 7-18 Serum or plasma creatinine measurement (mass/volume) 0.77 mg/dL 0.60-1.30 Serum or plasma urea nitrogen/creatinine mass ratio 6 NRG Serum or plasma creatinine measurement w ith calculation of estimated glomerular filtration rate > NRG Serum or plasma glucose measurement (mass/volume) 142 mg/dL 70-105 Serum or plasma calcium measurement (mass/volume) 7.7 mg/dL 8.5-10.1 Complete blood count (CBC) with automate d white blood cell (WBC) differential - 04/05/19 10:40 Blood leukocytes automated count (number/volume) 4.8 10*3/uL 4.3-11.0 Blood erythrocytes automated count (number/volume) 3.12 10*6/uL 4.35-5.85 Venous blood hemoglobin measurement (mass/volume) 10.2 g/dL 13.3-17.7 Blood hematocrit (volume fraction) 32 % 40-54 Automated erythrocyte mean corpuscular volume 101 [foz_us] 80-99 Automated erythrocyte mean corpuscular h emoglobin (mass per erythrocyte) 33 pg 25-34 Automated erythrocyte mean corpuscular h emoglobin concentration measurement (mass/volume) 32 g/dL 32-36 Automated erythrocyte distribution width ratio 20. 9 % 10.0- 14.5 Automated blood platelet count (count/volume) 126 10*3/uL 130-400 Automated blood platelet mean volume measurement 9.6 [foz_us] 7.4-10.4 Automated blood neutrophils/100 leukocytes 52 % 42-75 Automated blood lymphocytes/100 leukocytes 38 % 12-44 Blood monocytes/100 leukocytes 8 % 0-12 Automated blood eosinophils/100 leukocytes 1 % 0-10 Automated blood basophils/100 leukocytes 1 % 0-10 Blood neutrophils automated count (number/volume) 2.5 10*3 1.8-7.8 Blood lymphocytes automated count (number/volume) 1.8 10*3 1.0-4.0 Blood monocytes automated count (number/volume) 0. 4 10*3 0.0-1.0 Automated eosinophil count 0.1 10*3/uL 0 .0-0.3 Automated blood basophil count (count/volume) 0.0 10*3/uL 0.0-0.1 Whole blood basic metabolic panel - 03/18 10:40 Serum or plasma sodium measurement (moles/volume) 131 mmol/L 135-145 Serum or plasma potassium measurement (moles/volume) 4.8 mmol/L 3.6-5.0 Serum or plasma chloride measurement (moles/volume) 97 mmol/L 98-107 Carbon dioxide 21 mmol/L 21-32 Serum or plasma anion gap determination (moles/volume) 13 mmol/L 5-14 Serum or plasma urea nitrogen measurement (mass/volume ) 18 mg/dL 7-18 Serum or plasma creatinine measurement (mass/volume) 1.16 mg/dL 0.60-1.30 Serum or plasma urea nitrogen/creatinine mass ratio 16 NRG Serum or plasma creatinine measurement w ith calculation of estimated glomerular filtration rate > NRG Serum or plasma glucose measurement (mass/volume) 380 mg/dL 70-105 Serum or plasma calcium measurement (mass/volume) 9.3 mg/dL 8.5-10.1 Complete blood count (CBC) with automate d white blood cell (WBC) differential - 04/24/19 11:34 Blood leukocytes automated count (number/volume) 7.8 10*3/uL 4.3-11.0 Blood erythrocytes automated count (number/volume) 3.35 10*6/uL 4.35-5.85 Venous blood hemoglobin measurement (mass/volume) 11.3 g/dL 13.3-17.7 Blood hematocrit (volume fraction) 35 % 40-54 Automated erythrocyte mean corpuscular volume 104 [foz_us] 80-99 Automated erythrocyte mean corpuscular h emoglobin (mass per erythrocyte) 34 pg 25-34 Automated erythrocyte mean corpuscular h emoglobin concentration measurement (mass/volume) 33 g/dL 32-36 Automated erythrocyte distribution width ratio 19. 9 % 10.0- 14.5 Automated blood platelet count (count/volume) 171 10*3/uL 130-400 Automated blood platelet mean volume measurement 9.8 [foz_us] 7.4-10.4 Automated blood neutrophils/100 leukocytes 68 % 42-75 Automated blood lymphocytes/100 leukocytes 23 % 12-44 Blood monocytes/100 leukocytes 6 % 0-12 Automated blood eosinophils/100 leukocytes 2 % 0-10 Automated blood basophils/100 leukocytes 1 % 0-10 Blood neutrophils automated count (number/volume) 5.3 10*3 1.8-7.8 Blood lymphocytes automated count (number/volume) 1.8 10*3 1.0-4.0 Blood monocytes automated count (number/volume) 0. 5 10*3 0.0-1.0 Automated eosinophil count 0.2 10*3/uL 0 .0-0.3 Automated blood basophil count (count/volume) 0.1 10*3/uL 0.0-0.1 Whole blood basic metabolic panel - 04/04 11:34 Serum or plasma sodium measurement (moles/volume) 132 mmol/L 135-145 Serum or plasma potassium measurement (moles/volume) 4.3 mmol/L 3.6-5.0 Serum or plasma chloride measurement (moles/volume) 96 mmol/L 98-107 Carbon dioxide 21 mmol/L 21-32 Serum or plasma anion gap determination (moles/volume) 15 mmol/L 5-14 Serum or plasma urea nitrogen measurement (mass/volume ) 18 mg/dL 7-18 Serum or plasma creatinine measurement (mass/volume) 0.99 mg/dL 0.60-1.30 Serum or plasma urea nitrogen/creatinine mass ratio 18 NRG Serum or plasma creatinine measurement w ith calculation of estimated glomerular filtration rate > NRG Serum or plasma glucose measurement (mass/volume) 268 mg/dL 70-105 Serum or plasma calcium measurement (mass/volume) 9.5 mg/dL 8.5-10.1 Complete blood count (CBC) with automate d white blood cell (WBC) differential - 05/09/19 11:09 Blood leukocytes automated count (number/volume) 7.5 10*3/uL 4.3-11.0 Blood erythrocytes automated count (number/volume) 3.07 10*6/uL 4.35-5.85 Venous blood hemoglobin measurement (mass/volume) 10.9 g/dL 13.3-17.7 Blood hematocrit (volume fraction) 32 % 40-54 Automated erythrocyte mean corpuscular volume 105 [foz_us] 80-99 Automated erythrocyte mean corpuscular h emoglobin (mass per erythrocyte) 36 pg 25-34 Automated erythrocyte mean corpuscular h emoglobin concentration measurement (mass/volume) 34 g/dL 32-36 Automated erythrocyte distribution width ratio 19. 9 % 10.0- 14.5 Automated blood platelet count (count/volume) 157 10*3/uL 130-400 Automated blood platelet mean volume measurement 9.5 [foz_us] 7.4-10.4 Automated blood neutrophils/100 leukocytes 74 % 42-75 Automated blood lymphocytes/100 leukocytes 19 % 12-44 Blood monocytes/100 leukocytes 6 % 0-12 Automated blood eosinophils/100 leukocytes 1 % 0-10 Automated blood basophils/100 leukocytes 0 % 0-10 Blood neutrophils automated count (number/volume) 5.6 10*3 1.8-7.8 Blood lymphocytes automated count (number/volume) 1.4 10*3 1.0-4.0 Blood monocytes automated count (number/volume) 0. 4 10*3 0.0-1.0 Automated eosinophil count 0.1 10*3/uL 0 .0-0.3 Automated blood basophil count (count/volume) 0.0 10*3/uL 0.0-0.1 PT panel in platelet poor plasma by coag ulation assay - 05/09/19 11:09 Prothrombin time (PT) in platelet poor plasma by coagu lation assay 13.8 s 12.2-14.7 INR in platelet poor plasma or blood by coagulation as say 1.0 0.8-1.4 Whole blood basic metabolic panel - 04/17 11/02 11:09 Serum or plasma sodium measurement (moles/volume) 135 mmol/L 135-145 Serum or plasma potassium measurement (moles/volume) 3.8 mmol/L 3.6-5.0 Serum or plasma chloride measurement (moles/volume) 97 mmol/L 98-107 Carbon dioxide 20 mmol/L 21-32 Serum or plasma anion gap determination (moles/volume) 18 mmol/L 5-14 Serum or plasma urea nitrogen measurement (mass/volume ) 10 mg/dL 7-18 Serum or plasma creatinine measurement (mass/volume) 0.83 mg/dL 0.60-1.30 Serum or plasma urea nitrogen/creatinine mass ratio 12 NRG Serum or plasma creatinine measurement w ith calculation of estimated glomerular filtration rate > NRG Serum or plasma glucose measurement (mass/volume) 208 mg/dL 70-105 Serum or plasma calcium measurement (mass/volume) 9.2 mg/dL 8.5-10.1 Complete urinalysis with reflex to cultu re - 05/09/19 13:00 Urine color determination YELLOW NRG Urine clarity determination CLEAR NR G Urine pH measurement by test strip 6.0 5-9 Specific gravity of urine by test strip 1.010 1.016-1.022 Urine protein assay by test strip, semi-quantitative NEGATIVE NEGATIVE Urine glucose detection by automated test strip 3+ NEGATIVE Erythrocytes detection in urine sediment by light micr oscopy NEGATIVE NEGATIVE Urine ketones detection by automated test strip TR CITLALY NEGATIVE Urine nitrite detection by test strip NEGATIVE NEGATIVE Urine total bilirubin detection by test strip NEGA TIVE NEGATIVE Urine urobilinogen measurement by automated test strip (mass/volume) 0.2 mg/dL NORMAL Urine leukocyte esterase detection by dipstick NEG ATIVE NEGATIVE Automated urine sediment erythrocyte cou nt by microscopy (number/high power field) RARE NRG Automated urine sediment leukocyte count by microscopy (number/high power field) NONE NRG Bacteria detection in urine sediment by light microsco py NEGATIVE NRG Squamous epithelial cells detection in u rine sediment by light microscopy NONE NRG Crystals detection in urine sediment by light microsco py NONE NRG Casts detection in urine sediment by light microscopy NONE NRG Mucus detection in urine sediment by light microscopy NONE NRG Complete urinalysis with reflex to culture NO NRG Prostate specific ag [mass/volume] in se rum or plasma - 06/19/19 15:00 PSA EQUIMOLAR (DONNELL) 0.50 % 0.00-4.0 0 Comprehensive metabolic panel - 07/22/19 11:43 Serum or plasma sodium measurement (moles/volume) 128 mmol/L 135-145 Serum or plasma potassium measurement (moles/volume) 4.5 mmol/L 3.6-5.0 Serum or plasma chloride measurement (moles/volume) 90 mmol/L 98-107 Carbon dioxide 22 mmol/L 21-32 Serum or plasma anion gap determination (moles/volume) 16 mmol/L 5-14 Serum or plasma urea nitrogen measurement (mass/volume ) 14 mg/dL 7-18 Serum or plasma creatinine measurement (mass/volume) 1.13 mg/dL 0.60-1.30 Serum or plasma urea nitrogen/creatinine mass ratio 12 NRG Serum or plasma creatinine measurement w ith calculation of estimated glomerular filtration rate > NRG Serum or plasma glucose measurement (mass/volume) 135 mg/dL 70-105 Serum or plasma calcium measurement (mass/volume) 9.7 mg/dL 8.5-10.1 Serum or plasma total bilirubin measurement (mass/volu me) 0.3 mg/dL 0.1-1.0 Serum or plasma alkaline phosphatase stuart surement (enzymatic activity/volume) 68 U/L 40-136 Serum or plasma aspartate aminotransfera se measurement (enzymatic activity/volume) 22 U/L 5-34 Serum or plasma alanine aminotransferase measurement (enzymatic activity/volume) 18 U/L 0-55 Serum or plasma protein measurement (mass/volume) 7.3 g/dL 6.4-8.2 Serum or plasma albumin measurement (mass/volume) 4.4 g/dL 3.2-4.5 CALCIUM CORRECTED 9.4 mg/dL 8.5-10.1 Complete blood count (CBC) with automate d white blood cell (WBC) differential - 07/22/19 11:43 Blood leukocytes automated count (number/volume) 6.3 10*3/uL 4.3-11.0 Blood erythrocytes automated count (number/volume) 3.59 10*6/uL 4.35-5.85 Venous blood hemoglobin measurement (mass/volume) 12.2 g/dL 13.3-17.7 Blood hematocrit (volume fraction) 37 % 40-54 Automated erythrocyte mean corpuscular volume 103 [foz_us] 80-99 Automated erythrocyte mean corpuscular h emoglobin (mass per erythrocyte) 34 pg 25-34 Automated erythrocyte mean corpuscular h emoglobin concentration measurement (mass/volume) 33 g/dL 32-36 Automated erythrocyte distribution width ratio 14. 5 % 10.0- 14.5 Automated blood platelet count (count/volume) 268 10*3/uL 130-400 Automated blood platelet mean volume measurement 9.3 [foz_us] 7.4-10.4 Automated blood neutrophils/100 leukocytes 62 % 42-75 Automated blood lymphocytes/100 leukocytes 26 % 12-44 Blood monocytes/100 leukocytes 8 % 0-12 Automated blood eosinophils/100 leukocytes 3 % 0-10 Automated blood basophils/100 leukocytes 1 % 0-10 Blood neutrophils automated count (number/volume) 3.9 10*3 1.8-7.8 Blood lymphocytes automated count (number/volume) 1.6 10*3 1.0-4.0 Blood monocytes automated count (number/volume) 0. 5 10*3 0.0-1.0 Automated eosinophil count 0.2 10*3/uL 0 .0-0.3 Automated blood basophil count (count/volume) 0.1 10*3/uL 0.0-0.1 Lipid 1996 panel - 07/22/19 11:43 Serum or plasma triglyceride measurement (mass/volume) 61 mg/dL <150 Serum or plasma cholesterol measurement (mass/volume) 117 mg/dL < 200 Serum or plasma cholesterol in HDL measurement (mass/v olume) 48 mg/dL 40-60 Cholesterol in LDL [mass/volume] in serum or plasma by direct assay 58 mg/dL 1-129 Serum or plasma cholesterol in VLDL measurement (mass/ volume) 12 mg/dL 5-40 THYROID STIMULATING HORMONE - 07/22/19 1 1:43 THYROID STIMULATING HORMONE 0.05 u[iU]/mL 0.35-4.94 Hemoglobin A1c measurement - 07/22/19 11 :43 Blood hemoglobin A1C measurement (mass/volume) 6.5 % 4.0-5.6 MEAN BLOOD GLUCOSE 140 % <=126 Serum or plasma ferritin measurement (ma ss/volume) - 07/22/19 11:43 Serum or plasma ferritin measurement (mass/volume) 41.8 % 32.0-356.0 Urine microalbumin measurement by test s trip (mass/volume) - 07/22/19 11:43 MICROALBUMIN/CREATININE RATIO 37.1 mg/g{Cre} 0.0-30.0 Urine creatinine measurement (mass/volume) 77 % NRG Albumin/creatinine ratio panel in random urine for detection of microalbuminuria 28.6 % 0.0-20.0 THYROID STIMULATING HORMONE - 08/08/19 1 0:57 THYROID STIMULATING HORMONE 0.02 u[iU]/mL 0.35-4.94 Serum or plasma thyroxine (T4) free charu urement (mass/volume) - 08/08/19 10:57 Serum or plasma thyroxine (T4) free measurement (mass/ volume) 1.63 ng/dL 0.70-1.48 VITAMIN B 12 - 08/08/19 10:57 VITAMIN B 12 557 pg/mL 190-1100 A1C - 10/04/19 09:48 HEMOGLOBIN A1c 5.9 % of total Hgb <5.7 Coronavirus SARS-CoV-2 SO 2019 - 0 10:15 Coronavirus Ab [Units/volume] in Serum Negative Negative Capillary blood glucose measurement by g lucometer (mass/volume) - 11/29/19 13:55 Capillary blood glucose measurement by glucometer (mas s/volume) 117 mg/dL 70-110 Encounters ACCT No. Visit Date/Time Discharge Status Pt. Type Provider Facility Loc./Unit Complaint [id number] 05/14/2019 11:00:00 05/14/2019 23:59: 59 [id number] 10/04/2019 09:45:00 Document Registration [id number] 11/08/2018 08:45:00 Document Registration [id number] 10/30/2018 12:15:00 Document Registration [id number] 09/11/2019 09:23:00 00:01:00 DIS Outpatient NAHOMY ORDOÑEZ MD, V [facility] ONC [id number] 09/11/2019 09:59:00 23:59:59 CLS Outpatient NAHOMY ORDOÑEZ MD, V [facility] RAD BLADDER CA [id number] 09/11/2019 09:26:00 23:59:59 CLS Outpatient NAHOMY ORDOÑEZ MD, V [facility] ONC [id number] 08/22/2019 12:55:00 23:59:59 CLS Outpatient TAVON SUGGS MD Via [facility] CARD HTN,SYNCOPE [id number] 08/08/2019 10:54:00 23:59:59 CLS Outpatient KE CONDE MD Via [facility] LAB FS D53.9 [id number] 07/22/2019 11:23:00 23:59:59 CLS Outpatient KE CONDE MD Via [facility] LAB FS D50.0 [id number] 07/22/2019 11:19:00 23:59:59 CLS Outpatient KATHY SEQUEIRA, SAVANAH Murrell Via [facility] LAB FS E11.65 E78.2 E0 3.9 [id number] 04/24/2019 11:11:00 00:01:00 DIS Outpatient NAHOMY ORDOÑEZ MD [facility] LAB FS C67.9 [id number] 06/19/2019 15:11:00 23:59:59 CLS Outpatient SALENA ASHLEY APRN Via [facility] LAB [id number] 05/22/2019 15:37:00 00:01:00 DIS Outpatient NAHOMY ORDOÑEZ MD, V ia [facility] ONC [id number] 05/09/2019 10:50:00 14:15:00 DIS Emergency BJORN VALENZUELA MD Via [facility] ER FS CONSTIPATION [id number] 05/02/2019 14:46:00 23:59:59 CLS Outpatient KE CONDE MD Via [facility] LAB [id number] 2019 10:00:00 23:59:59 CLS Preadmit TAVON SUGGS MD Via [facility] CR STENT [id number] 01/16/2019 11:05:00 00:01:00 DIS Outpatient TAVON SUGGS MD Via [facility] CR STENT [id number] 03/16/2019 22:10:00 15:12:00 DIS Inpatient TED SEQUEIRA, ANTOINE Castro Via [facility] 4TH FEVER ELEV LACTIC ACI D ORTHOSTATIC HYPOTENSION [id number] 03/06/2019 17:57:00 00:06:00 DIS Emergency VIVIANE SALDIVAR MD Via [facility] ER ALLERGIC REACTION [id number] 02/22/2019 10:00:00 00:01:00 DIS Outpatient NAHOMY ORDOÑEZ MD, V [facility] LAB FS C67.9 [id number] 02/25/2019 09:08:00 13:40:00 DIS Emergency SHARON BRITT DO Via [facility] ER FS LOW BP [id number] 02/13/2019 12:43:00 08:41:00 DIS Outpatient BILLY BOUCHER Matthew Harper [facility] ONC [id number] 01/30/2019 12:37:00 16:01:00 DIS Outpatient NAHOMY ORDOÑEZ MD, V [facility] ONC [id number] 02/06/2019 10:19:00 23:59:59 CLS Outpatient BRIAN SEQUEIRA, ALICE Stephens Via [facility] RAD FS CHRONIC LT PAROTITIS [id number] 01/22/2019 12:25:00 19:27:00 DIS Inpatient CARMEN SEQUEIRA, FANNY Condon Via [facility] 4TH ORTHOSTATIC HYPOTENSION ANEMIA [id number] 01/16/2019 12:57:00 18:57:00 DIS Emergency ANGIE SEQUEIRA, MYA Mirza Via [facility] ER WEAKNESS;LOW BP ;VOMITING [id number] 12/19/2018 14:14:00 23:59:59 CLS Outpatient NAHOMY ORDOÑEZ MD, V [facility] LAB FS C67.9 [id number] 12/06/2018 11:31:00 09:16:00 DIS Inpatient MARIAMA DIA MD Via [facility] ICU ORTHOSTATIC HYPOTENSION [id number] 12/04/2018 17:03:00 18:08:00 DIS Inpatient MARIAMA DIA MD Via [facility] 4TH PERSISTANT HYPOTENSION - CHEMO/THERAPY [id number] 11/16/2018 05:57:00 10:45:00 DIS Outpatient SRIKANTH AGUILAR DO Via [facility] SDC COLON CANCER [id number] 11/15/2018 09:30:00 09:43:00 DIS Outpatient SRIKANTH AGUILAR DO Via [facility] PREOP COLON CANCER [id number] 11/08/2018 15:14:00 00:01:00 DIS Outpatient NAHOMY ORDOÑEZ MD [facility] ONC [id number] 10/08/2018 08:17:00 12:05:00 DIS Inpatient LEONARDO GARRIDO DO [facility] 4TH NEAR SYNCOPAL EPISODE [id number] 10/08/2018 09:00:00 23:59:59 CLS Preadmit SRIKANTH AGUILAR DO COLON CANCER [id number] 10/05/2018 16:56:00 20:58:00 DIS Outpatient LUCA TOLLIVER APRN Via [facility] 4THo SYMPTOMATIC ANEMIA [id number] 10/05/2018 15:20:00 17:00:00 DIS Emergency LUCA TOLLIVER APRN Via [facility] ER LOW BP [id number] 10/04/2018 11:50:00 13:29:00 DIS Outpatient SRIKANTH AGUILAR DO Via [facility] PREOP COLON CANCER [id number] 09/25/2018 10:14:00 23:59:59 CLS Outpatient SRIKANTH AGUILAR DO Via [facility] RAD ADENOCARCINOMA COLON [id number] 09/11/2018 12:55:00 16:00:00 DIS Outpatient SRIKANTH AGUILAR DO Via [facility] ENDO IRON DEF ANEMIA/GI BLEE D [id number] 09/06/2018 05:40:00 10:30:00 DIS Outpatient SRIKANTH AGUILAR DO Via [facility] PREOP COLONOSCOPY/EGD [id number] 07/26/2018 13:32:00 10:17:00 DIS Inpatient LEONARDO GARRIDO DO [facility] 4TH GI BLEED;CAD [id number] 07/04/2018 14:51:00 018 10:00:00 DIS Inpatient GEOVANY SEQUEIRA, CONCHA Gifford Via [facility] ICU SEVERE SEPSIS [id number] 11/29/2019 14:30:00 P EN Preadmit SRIKANTH AGUILAR DO Via [facility] ENDO HX COLON CA [id number] 11/28/2019 10:12:[address] Outpatient AGUILAR SRIKANTH PERAZA Via [facility] LAB FS PRE OP REQUIREMENT [id number] 11/28/2019 09:50:[address] Outpatient AGUILAR SRIKANTH PERAZA Via [facility] SDC COLONOSCOPY [id number] 09/18/2019 00:00:00 Document Registration [id number] 07/05/2019 00:00:00 Document Registration
[2019-11-29 15:30] VITALS: BP 142/86
[2019-11-29 15:44] VITALS: BP 142/86
--- NOTE | 2019-11-29 15:58 | Progress Note-Post Operative ---
Post-Operative Progess Note Surgeon (s)/Editorial Writer (s) Surgeon SRIKANTH AGUILAR DO Editorial Writer: na Pre-Operative Diagnosis history colon cancer Post-Operative Diagnosis normal colon Procedure & Operative Findings Date of Procedure 11/29/19 Procedure Performed/Findings colonoscopy Anesthesia Type per boilermaker fitter Estimated Blood Loss Estimated blood loss (mL): none Specimens/Packing Specimens Removed na SRIKANTH AGUILAR DO November 29, 2019 15:58
--- NOTE | 2019-11-29 15:59 | Discharge Inst-Simple/Standard ---
Discharge Inst-Standard Patient Instructions/Follow Up Plan of Care/Instructions/FU: Repeat colonoscopy at 3 years, any issues before then be seen at that time. Activity as Tolerated: Yes Discharge Diet: Regular Diet SRIKANTH AGUILAR DO November 29, 2019 15:59
--- NOTE | 2019-11-29 23:39 | OPERATIVE REPORT ---
DATE OF SERVICE: 11/29/2019 PREOPERATIVE DIAGNOSIS: History of colon cancer. POSTOPERATIVE DIAGNOSIS: Normal colon. PROCEDURE: Colonoscopy. SURGEON: Srikanth Osorio DO ANESTHESIA: Per ENTERPRISE SYSTEMS MANAGER. ESTIMATED BLOOD LOSS: None. COMPLICATIONS: None. INDICATIONS: The patient is a 69-year-old male with history of colon cancer needing colonoscopy. He understands risks and benefits of procedure and wished to proceed with procedure. Consent was signed in the chart. DESCRIPTION OF PROCEDURE: The patient was taken to the endoscopy suite, placed in left lateral recumbent position. Timeout was performed. Digital rectal exam was performed. There were no palpable polyps, masses or ulcerations. Scope was inserted in the rectum, advanced all the way to the ileocolonic anastomosis. No polyps, masses or ulcerations. Scope was then slowly retracted back. There were no polyps, masses or ulcerations within the transverse, descending and sigmoid colon. Once in the rectum, scope was retroflexed noting no other pathology. Scope was returned to its normal position, slowly withdrawn until completely removed. The patient tolerated procedure well without any complications. He was taken to recovery room in stable condition. RECOMMENDATIONS: The patient will need repeat colonoscopy in 3 years. Any issues before that be seen at that time. Job ID: [id number] DocumentID: [id number] Dictated Date: 11/29/2019 20:37:14 Physician Office Secretary Date: 11/29/2019 23:39:26 Dictated By: SRIKANTH OSORIO DO
== END 2019-11-29 15:44 | disposition home or self-care (01) ==
LOC: ENDO 13:22
PROVIDERS: ATTEND Surgery
DX: Z12.11 Encounter for screening for malignant neoplasm of colon (principal); I25.10 Atherosclerotic heart disease of native coronary artery without angina pectoris; E11.9 Type 2 diabetes mellitus without complications; I26.99 Other pulmonary embolism without acute cor pulmonale; I65.29 Occlusion and stenosis of unspecified carotid artery; I11.9 Hypertensive heart disease without heart failure; D64.9 Anemia, unspecified; I44.30 Unspecified atrioventricular block; Z85.51 Personal history of malignant neoplasm of bladder; Z85.038 Personal history of other malignant neoplasm of large intestine; Z88.8 Allergy status to other drugs, medicaments and biological substances; Z90.49 Acquired absence of other specified parts of digestive tract; Z79.899 Other long term (current) drug therapy; Z87.891 Personal history of nicotine dependence; Z79.02 Long term (current) use of antithrombotics/antiplatelets; Z79.01 Long term (current) use of anticoagulants; Z79.82 Long term (current) use of aspirin; Z79.84 Long term (current) use of oral hypoglycemic drugs; Z80.0 Family history of malignant neoplasm of digestive organs
CPT/HCPCS: 82962

== ENCOUNTER 2019-12-03 14:30 | Outpatient (RCR) | payer OTHER ==
[2019-09-11 09:56] LABS: BASOPHILS % (AUTO) 0 % (0-10); EOSINOPHILS # (AUTO) 0.1 10^3/uL (0.0-0.3); EOSINOPHILS % (AUTO) 2 % (0-10); HEMATOCRIT 32 % (40-54); HEMOGLOBIN 10.7 G/DL (13.3-17.7); LYMPHOCYTES # (AUTO) 1.6 X 10^3 (1.0-4.0); LYMPHOCYTES % (AUTO) 22 % (12-44); MEAN CORPUSCULAR HEMOGLOBIN 31 PG (25-34); MEAN CORPUSCULAR HGB CONC 33 G/DL (32-36); MEAN CORPUSCULAR VOLUME 94 FL (80-99); MEAN PLATELET VOLUME 8.2 FL (7.4-10.4); MONOCYTES # (AUTO) 0.3 X 10^3 (0.0-1.0); MONOCYTES % (AUTO) 5 % (0-12); NEUTROPHILS # (AUTO) 5.1 X 10^3 (1.8-7.8); NEUTROPHILS % (AUTO) 71 % (42-75); PLATELET COUNT 275 10^3/uL (130-400); RED CELL DISTRIBUTION WIDTH 13.5 % (10.0-14.5); WHITE BLOOD COUNT 7.1 10^3/uL (4.3-11.0)
[2019-09-11 10:23] LABS: ALANINE AMINOTRANSFERASE 17 U/L (0-55); ALBUMIN 3.9 GM/DL (3.2-4.5); ALKALINE PHOSPHATASE 72 U/L (40-136); BILIRUBIN,TOTAL 0.3 MG/DL (0.1-1.0); BUN/CREATININE RATIO 11; CALCIUM 9.4 MG/DL (8.5-10.1); CARBON DIOXIDE 24 MMOL/L (21-32); CHLORIDE 96 MMOL/L (98-107); CREATININE SERUM 0.99 MG/DL (0.60-1.30); GFR ESTIMATED > 60; GLUCOSE 105 MG/DL (70-105); POTASSIUM 4.4 MMOL/L (3.6-5.0); SODIUM 130 MMOL/L (135-145); TOTAL PROTEIN 6.7 GM/DL (6.4-8.2)
[~2019-12-03 14:30] MED LIST changes: -LACTATED RINGERS 1,000 ML IV ONE
== END 2019-12-10 | disposition home or self-care (01) ==
LOC: ONC 14:30
PROVIDERS: ATTEND Internal Medicine Hematology & Oncology
DX: C18.2 Malignant neoplasm of ascending colon (principal); C67.9 Malignant neoplasm of bladder, unspecified; C77.2 Secondary and unspecified malignant neoplasm of intra-abdominal lymph nodes; D64.81 Anemia due to antineoplastic chemotherapy; I25.10 Atherosclerotic heart disease of native coronary artery without angina pectoris; E11.9 Type 2 diabetes mellitus without complications; I10 Essential (primary) hypertension; I65.29 Occlusion and stenosis of unspecified carotid artery; Z79.82 Long term (current) use of aspirin; Z79.84 Long term (current) use of oral hypoglycemic drugs; Z79.899 Other long term (current) drug therapy; Z90.49 Acquired absence of other specified parts of digestive tract; Z87.891 Personal history of nicotine dependence; Z98.61 Coronary angioplasty status; Z80.9 Family history of malignant neoplasm, unspecified
CPT/HCPCS: 36591; 80053; 82378; 85025; 99213

== ENCOUNTER 2020-02-24 11:03 | Outpatient (RCR) | payer MEDICARE ==
[~2020-02-24 11:03] MED LIST changes: +ASPI-1238 PO; -ASPI-983 PO; +PANT20TA18 PO; -PANT20TA3 PO; -PANT40TA3 PO; +PANT40TA52 PO; +WARF4TAB3 PO; -WARF4TAB70 PO
[2020-02-24 11:55] LABS: BASOPHILS % (AUTO) 0 % (0-10); EOSINOPHILS # (AUTO) 0.1 10^3/uL (0.0-0.3); EOSINOPHILS % (AUTO) 2 % (0-10); HEMATOCRIT 33 % (40-54); HEMOGLOBIN 10.9 G/DL (13.3-17.7); LYMPHOCYTES # (AUTO) 1.7 X 10^3 (1.0-4.0); LYMPHOCYTES % (AUTO) 21 % (12-44); MEAN CORPUSCULAR HEMOGLOBIN 28 PG (25-34); MEAN CORPUSCULAR HGB CONC 33 G/DL (32-36); MEAN CORPUSCULAR VOLUME 84 FL (80-99); MEAN PLATELET VOLUME 8.9 FL (7.4-10.4); MONOCYTES # (AUTO) 0.5 X 10^3 (0.0-1.0); MONOCYTES % (AUTO) 6 % (0-12); NEUTROPHILS # (AUTO) 5.6 X 10^3 (1.8-7.8); NEUTROPHILS % (AUTO) 71 % (42-75); PLATELET COUNT 260 10^3/uL (130-400); WHITE BLOOD COUNT 7.9 10^3/uL (4.3-11.0)
[2020-02-24 12:16] LABS: ALANINE AMINOTRANSFERASE 18 U/L (0-55); ALBUMIN 4.1 GM/DL (3.2-4.5); ALKALINE PHOSPHATASE 65 U/L (40-136); BILIRUBIN,TOTAL 0.3 MG/DL (0.1-1.0); BUN/CREATININE RATIO 14; CALCIUM 8.8 MG/DL (8.5-10.1); CARBON DIOXIDE 24 MMOL/L (21-32); CHLORIDE 97 MMOL/L (98-107); CREATININE SERUM 0.98 MG/DL (0.60-1.30); GFR ESTIMATED > 60; GLUCOSE 101 MG/DL (70-105); POTASSIUM 4.6 MMOL/L (3.6-5.0); SODIUM 129 MMOL/L (135-145); TOTAL PROTEIN 6.8 GM/DL (6.4-8.2)
== END 2020-04-10 08:12 | disposition home or self-care (01) ==
LOC: ONC 11:03
PROVIDERS: ATTEND Internal Medicine Hematology & Oncology
DX: C18.2 Malignant neoplasm of ascending colon (principal); C67.9 Malignant neoplasm of bladder, unspecified; C77.2 Secondary and unspecified malignant neoplasm of intra-abdominal lymph nodes; D64.81 Anemia due to antineoplastic chemotherapy; I25.10 Atherosclerotic heart disease of native coronary artery without angina pectoris; E11.9 Type 2 diabetes mellitus without complications; I10 Essential (primary) hypertension; I65.29 Occlusion and stenosis of unspecified carotid artery; Z79.82 Long term (current) use of aspirin; Z79.84 Long term (current) use of oral hypoglycemic drugs; Z79.899 Other long term (current) drug therapy; Z90.49 Acquired absence of other specified parts of digestive tract; Z87.891 Personal history of nicotine dependence; Z98.61 Coronary angioplasty status; Z80.9 Family history of malignant neoplasm, unspecified
CPT/HCPCS: 80053; 82378; 85025; G0463; 36591

== ENCOUNTER → 2020-04-29 | Outpatient (CLI) | payer MEDICARE ==
[2020-04-29 08:24] LABS: BASOPHILS # (AUTO) 0.1 10^3/uL (0.0-0.1); BASOPHILS % (AUTO) 1 % (0-10); EOSINOPHILS # (AUTO) 0.6 10^3/uL (0.0-0.3); EOSINOPHILS % (AUTO) 7 % (0-10); HEMATOCRIT 33 % (40-54); HEMOGLOBIN 10.8 g/dL (13.3-17.7); LYMPHOCYTES # (AUTO) 1.7 10^3/uL (1.0-4.0); LYMPHOCYTES % (AUTO) 20 % (12-44); MEAN CORPUSCULAR HEMOGLOBIN 28 pg (25-34); MEAN CORPUSCULAR HGB CONC 32 g/dL (32-36); MEAN CORPUSCULAR VOLUME 85 fL (80-99); MEAN PLATELET VOLUME 8.5 fL (9.0-12.2); MONOCYTES # (AUTO) 0.6 10^3/uL (0.0-1.0); MONOCYTES % (AUTO) 7 % (0-12); NEUTROPHILS # (AUTO) 5.8 10^3/uL (1.8-7.8); NEUTROPHILS % (AUTO) 66 % (42-75); PLATELET COUNT 408 10^3/uL (130-400); WHITE BLOOD COUNT 8.9 10^3/uL (4.3-11.0)
[2020-04-29 08:44] LABS: ALANINE AMINOTRANSFERASE 23 U/L (0-55); ALBUMIN 3.9 GM/DL (3.2-4.5); ALKALINE PHOSPHATASE 69 U/L (40-136); BILIRUBIN,TOTAL 0.3 MG/DL (0.1-1.0); BUN/CREATININE RATIO 14; CALCIUM 9.2 MG/DL (8.5-10.1); CARBON DIOXIDE 23 MMOL/L (21-32); CHLORIDE 96 MMOL/L (98-107); CHOLESTEROL 129 MG/DL (< 200); CREATININE SERUM 1.18 MG/DL (0.60-1.30); GFR ESTIMATED > 60; GLUCOSE 136 MG/DL (70-105); HDL CHOLESTEROL 37 MG/DL (40-60); POTASSIUM 4.1 MMOL/L (3.6-5.0); SODIUM 132 MMOL/L (135-145); TOTAL PROTEIN 7.5 GM/DL (6.4-8.2); TRIGLYCERIDES 84 MG/DL (<150); VLDL CHOLESTEROL 17 MG/DL (5-40)
== END ==
LOC: LAB 08:02
PROVIDERS: ATTEND Family Medicine
DX: E11.69 Type 2 diabetes mellitus with other specified complication (principal); E03.9 Hypothyroidism, unspecified
CPT/HCPCS: 36415; 80053; 80061; 82043; 83036; 84443; 85025

== ENCOUNTER → 2020-04-29 | Outpatient (CLI) | payer MEDICARE ==
[~2020-04-29] VITALS: Ht 187 cm; Wt 84.0 kg
[~2020-04-29] MED LIST changes: +CATHETER FLUSH 10 ML SYR IV PRN; +REGADENOSON 0.4 MG/5 ML SYR (LEXISCAN) IV ONE
[2020-04-29 09:17] VITALS: BP 155/95
== END ==
LOC: CARD 08:00
PROVIDERS: ATTEND Physician Assistant
DX: I25.10 Atherosclerotic heart disease of native coronary artery without angina pectoris (principal); I65.29 Occlusion and stenosis of unspecified carotid artery; E11.9 Type 2 diabetes mellitus without complications; I10 Essential (primary) hypertension; Z20.828 Contact with and (suspected) exposure to other viral communicable diseases
CPT/HCPCS: 78452; 93017; A9502

== ENCOUNTER 2020-05-14 09:25 | Inpatient (IN) | payer MEDICARE ==
[~2020-05-14] VITALS: Ht 190.5 cm; Wt 79.9 kg
[~2020-05-14 09:25] MED LIST changes: -CATHETER FLUSH 10 ML SYR IV PRN; -REGADENOSON 0.4 MG/5 ML SYR (LEXISCAN) IV ONE
--- NOTE | 2020-05-14 10:05 | ED Chest Pain ---
General Chief Complaint: Chest Pain Stated Complaint: CHEST PAIN,SOB Source: patient Exam Limitations: no limitations History of Present Illness Date Seen by Provider: May 14, 2020 Time Seen by Provider: 09:40 Initial Comments 70-year-old male presents ambulatory to the ER with complaint of chest pain which started this morning and lasted one hour and resolved on arrival. States he got up this morning and was feeling fine, took his morning medications and then took a shower (typically does not shower in the morning), then after the shower felt like his blood pressure dropped and was lightheaded so he sat down for a while until he felt better. States he got dressed and was driving to [place] for some appointments and began having chest pain on his drive which continued for about 20 minutes, then he turned around and came back to [facility] to be evaluated. Patient has a history of coronary artery disease with 3 stents (in the same vessel) recently had a stress test done which she states was abnormal and is scheduled for a "angiogram" on [address] Melchor. Currently feels fine and states he could walk home as he feels so good. Denies recent illness, fever or chills, cough or shortness of air, abdominal pain, nausea vomiting. Allergies and Home Medications Allergies Coded Allergies: oxaliplatin (Verified Allergy, Intermediate, 03/07/19) Home Medications Aspirin 81 Mg Tablet., 81 MG PO DAILY, (Reported) Atorvastatin Calcium 20 Mg Tablet, 20 MG PO HS, (Reported) Azelaic Acid 50 Gm Gel..gram., TP DAILY, (Reported) Chlorpheniramine Maleate 4 Mg Tablet, 4 MG PO BID PRN for ALLERGIES, (Reported) Clopidogrel Bisulfate 75 Mg Tablet, 75 MG PO HS, (Reported) Cyanocobalamin (Vitamin B-12) 1,000 Mcg Tablet, 1,000 MCG PO HS, (Reported) Diphenoxylate HCl/Atropine 1 Each Tablet, 1 EACH PO QID PRN for DIARRHEA, (Reported) Ferrous Sulfate 325 Mg Tablet, 325 MG PO HS, (Reported) Fluticasone Propionate 9.9 Ml [place].susp, 2 SPRAY NS DAILY PRN for ALLERGIES, (Reported) Glipizide 5 Mg Tablet, 5 MG PO BID WITH MEALS, (Reported) Hydrocortisone 10 Mg Tablet, 10 MG PO DAILY, (Reported) Hydrocortisone 10 Mg Tablet, 5 MG PO DAILY@1200, (Reported) Hydrocortisone 10 Mg Tablet, 2.5 MG PO DAILY@1500, (Reported) Levothyroxine Sodium 150 Mcg Tablet, 150 MCG PO DAILY, (Reported) Metformin HCl 1,000 Mg Tablet, 1,000 MG PO BID, (Reported) Metronidazole 45 Gm Cream..g., TP HS, (Reported) Midodrine HCl 2.5 Mg Tablet, 2.5 MG PO TID, (Reported) Ondansetron 8 Mg Tab.rapdis, 8 MG PO Q3H PRN for NAUSEA/VOMITING-1ST LINE, (Reported) Pantoprazole Sodium 20 Mg Tablet.dr, 20 MG PO DAILY, (Reported) Pimecrolimus 30 Gm Cream.gm., TP DAILY PRN for PSORIASIS, (Reported) Semaglutide 1 Mg/0.75 Ml Pen.injctr, 1 MG SQ WEEK, (Reported) Patient Home Medication List Home Medication List Reviewed: Yes Review of Systems Review of Systems Constitutional: No no symptoms reported; see HPI; No chills, No diaphoresis, No dizziness, No fever, No malaise, No weakness, No weight gain, No weight loss, No other EENTM: No Symptoms Reported Respiratory: Denies Cough, Denies Shortness of Air Cardiovascular: Denies No Symptoms Reported, Denies See HPI; Chest Pain; Denies Edema, Denies Irregular Heart Rate, Denies Lightheadedness, Denies Palpitations Gastrointestinal: Denies Abdominal Pain, Denies Nausea, Denies Vomiting Musculoskeletal: No back pain, No joint pain Skin: No change in color, No rash Psychiatric/Neurological: Denies Headache, Denies Numbness, Denies Paresthesia Past Rmtbibg-Allfpn-Tyxnqr Hx Past Med/Social Hx: Reviewed Nursing Past Med/Soc Hx Patient Social History Alcohol Beverage of Choice: Smith Type Used: Cigarettes Former Smoker, Quit: Jul 04, 1980 2nd Hand Smoke Exposure: No Recent Hopitalizations: No Immunizations Up To Date Tetanus Booster (TDap): Unknown Date of Pneumonia Vaccine: Jul 26, 2016 Date of Influenza Vaccine: May 04, 2019 Seasonal Allergies Seasonal Allergies: No Past Medical History Surgeries: Yes (BLADDER SURGERY-CANCER, COLON RESECTION port) Abdominal, Bowel Surgery, Cardiac, Coronary Stent Respiratory: Yes Pulmonary Embolism Currently Using CPAP: No Currently Using BIPAP: No Cardiac: Yes (STENTS in 1996, ANGIOPLASTY 06/2018) Coronary Artery Disease, High Cholesterol, Hypertension Neurological: No Sexually Transmitted Disease: No HIV/AIDS: No Genitourinary: Yes (PAST HX BLADDER CA) Bladder Infection Gastrointestinal: Yes (COLON CA) Gastrointestinal Bleed Musculoskeletal: No Endocrine: Yes Diabetes, Non-Insulin dep HEENT: Yes (GLASSES) Cataract Loss of Vision: Bilateral Hearing Impairment: Denies Cancer: Yes Bladder, Colon Did You Recieve Any Treatments: Yes What Type of Treatment Did You: Chemotherapy, Surgical Intervention Psychosocial: No Integumentary: Yes Psoriasis Blood Disorders: Yes (ANEMIA) Adverse Reaction/Blood Tranf: No (HAS HAD BLOOD WITH NO REACTION) Family Medical History Abdominal aortic aneurysm Cardiovascular disease Cataracts Colon cancer Diabetes mellitus Glaucoma Hypertension Myocardial infarction Respiratory disorder Thyroid disease Visual disorder CAD Over 55 Years Old Physical Exam Vital Signs Vital Signs - First Documented 05/14/20 09:26 Temp 34.8 Pulse 81 Resp 15 B/P (MAP) 137/74 (95) Pulse Ox 98 O2 Delivery Room Air Capillary Refill : Height, Weight, BMI Height: 6'3.00" Weight: 188lbs. 1.6oz. 85.292854sf; 24.02 BMI Method:Estimated General Appearance: No Apparent Distress, WD/WN HEENT: PERRL/EOMI, Normal ENT Inspection Neck: Normal Inspection, Non Tender, Supple Respiratory: Chest Non Tender, Lungs Clear, Normal Breath Sounds Cardiovascular: Regular Rate, Rhythm, No Edema, No Gallop, No JVD, Normal Peripheral Pulses Gastrointestinal: Non Tender, Soft Extremity: Normal Capillary Refill, Normal Inspection, Non Tender, No Calf Tenderness Neurologic/Psychiatric: Alert, Oriented x3, No Motor/Sensory Deficits, Normal Mood/Affect Skin: Normal Color, Warm/Dry Progress/Results/Core Measures Results/Orders Lab Results Laboratory Tests Test 05/14/20 09:40 05/14/20 11:45 Range/Units White Blood Count 10.0 4.3-11.0 10^3/uL Red Blood Count 4.02 L 4.35-5.85 10^6/uL Hemoglobin 11.0 L 13.3-17.7 G/DL Hematocrit 34 L 40-54 % Mean Corpuscular Volume 85 80-99 FL Mean Corpuscular Hemoglobin 27 25-34 PG Mean Corpuscular Hemoglobin Concent 32 32-36 G/DL Red Cell Distribution Width 14.5 10.0-14.5 % Platelet Count 327 130-400 10^3/uL Mean Platelet Volume 9.2 7.4-10.4 FL Immature Granulocyte % (Auto) 1 % Neutrophils (%) (Auto) 69 42-75 % Lymphocytes (%) (Auto) 17 12-44 % Monocytes (%) (Auto) 5 0-12 % Eosinophils (%) (Auto) 8 0-10 % Basophils (%) (Auto) 1 0-10 % Neutrophils # (Auto) 6.9 1.8-7.8 X 10^3 Lymphocytes # (Auto) 1.7 1.0-4.0 X 10^3 Monocytes # (Auto) 0.5 0.0-1.0 X 10^3 Eosinophils # (Auto) 0.8 H 0.0-0.3 10^3/uL Basophils # (Auto) 0.1 0.0-0.1 10^3/uL Immature Granulocyte # (Auto) 0.1 0.0-0.1 10^3/uL Sodium Level 132 L 135-145 MMOL/L Potassium Level 4.4 3.6-5.0 MMOL/L Chloride Level 96 L 98-107 MMOL/L Carbon Dioxide Level 25 21-32 MMOL/L Anion Gap 11 5-14 MMOL/L Blood Urea Nitrogen 16 7-18 MG/DL Creatinine 1.34 H 0.60-1.30 MG/DL Estimat Glomerular Filtration Rate 52 BUN/Creatinine Ratio 12 Glucose Level 214 H 70-105 MG/DL Calcium Level 9.7 8.5-10.1 MG/DL Corrected Calcium 9.7 8.5-10.1 MG/DL Total Bilirubin 0.3 0.1-1.0 MG/DL Aspartate Amino Transf (AST/SGOT) 16 5-34 U/L Alanine Aminotransferase (ALT/SGPT) 15 0-55 U/L Alkaline Phosphatase 87 40-136 U/L Troponin I < 0.30 0.55 *H <0.30 NG/ML Total Protein 7.4 6.4-8.2 GM/DL Albumin 4.0 3.2-4.5 GM/DL My Orders Orders - BRIA OLIVAS DO Cbc With Automated Diff (05/14/20 09:40) Comprehensive Metabolic Panel (05/14/20 09:40) Troponin I Fs (05/14/20 09:40) Ed Iv/Invasive Line Start (05/14/20 09:40) Chest 1 View Ap/Pa Only (05/14/20 09:40) Ekg Tracing (05/14/20 09:40) Ns Iv 500 Ml (Sodium Chloride 0.9%) (05/14/20 11:00) Troponin I Fs (05/14/20 11:45) Ekg Tracing (05/14/20 11:40) Ns Iv 500 Ml (Sodium Chloride 0.9%) (05/14/20 10:59) Aspirin Chewable Tablet (Baby Aspirin Ch (05/14/20 12:30) Enoxaparin Injection (Lovenox Injection) (05/14/20 12:45) Medications Given in ED Current Medications Medications Dose Ordered Sig/Rabia Route Start Time Stop Time Status Last Admin Dose Admin Aspirin 324 mg ONCE ONCE PO 05/14/20 12:30 05/14/20 12:31 DC 05/14/20 13:03 324 MG Enoxaparin Sodium 80 mg ONCE ONCE SC 05/14/20 12:45 05/14/20 12:46 DC 05/14/20 13:03 80 MG Vital Signs/I&O 05/14/20 05/14/20 09:26 13:12 Temp 34.8 35.9 Pulse 81 89 Resp 15 13 B/P (MAP) 137/74 (95) 146/81 Pulse Ox 98 98 O2 Delivery Room Air Room Air Progress Progress Note : Progress Note Patient remains asymptomatic with repeat EKG without any changes, however repeat troponin at 2 hours with an elevation to 0.55. Called and discussed w Dr Melchor, he will see pt in consult. Advised LMWH Initial ECG Impression Date: May 14, 2020 Initial ECG Impression Time: 10:05 Initial ECG Rate: 80 Initial ECG Rhythm: Normal Sinus Initial ECG Intervals prolonged NC, no ST changes Initial ECG Impression: Normal EKG : EKG Time: 11:37 Rate: 85 Rhythm: Normal Sinus ECG Comparisson: Unchanged (from ECG 2 hrs prior) ECG Impression: Normal Diagnostic Imaging Comments The heart size is within normal limits and stable when compared to 03/06/2019. The lungs remain clear. There still no sign of failure, pneumonia or pleural effusion. The mediastinum is not widened. The osseous structures are intact. The central venous catheter on the right seen previously is unchanged in position. Impression: Stable chest. There has been no adverse change since the prior exam. Dictated on workstation # [id number] Dict: 05/14/20 1009 Trans: 05/14/[address] [facility] [id number] Interpreted by: SHELLEY WHALEN MD Electronically signed by: Departure Communication (Admissions) Time/Spoke to Admitting Phy: 12:[address] Padilla, who accepts for admission w Dr Melchor consulting for Cardio Impression Primary Impression: Chest pain Qualified Codes: R07.9 - Chest pain, unspecified Additional Impression: Elevated troponin Disposition: 30 STILL A PATIENT Condition: Stable Admissions Decision to Admit Reason: Admit from ER (General) Decision to Admit/Date: May 14, 2020 Time/Decision to Admit Time: 12:30 Departure-Patient Inst. Referrals: EMIL RITTER MD (PCP/Family) Primary Care Physician BRIA OLIVAS DO May 14, 2020 10:05
--- NOTE | 2020-05-14 10:13 | Diagnostic Imaging Report ---
Portable AP chest at 9:45. Indication: Chest pain The heart size is within normal limits and stable when compared to 03/06/2019. The lungs remain clear. There still no sign of failure, pneumonia or pleural effusion. The mediastinum is not widened. The osseous structures are intact. The central venous catheter on the right seen previously is unchanged in position. Impression: Stable chest. There has been no adverse change since the prior exam. Dictated by: Dictated on workstation # [id number]
[2020-05-14 10:49] LABS: HEMATOCRIT 34 % (40-54); MEAN CORPUSCULAR HEMOGLOBIN 27 PG (25-34); MEAN CORPUSCULAR HGB CONC 32 G/DL (32-36); MEAN CORPUSCULAR VOLUME 85 FL (80-99)
[2020-05-14 10:50] LABS: BASOPHILS # (AUTO) 0.1 10^3/uL (0.0-0.1); BASOPHILS % (AUTO) 1 % (0-10); EOSINOPHILS # (AUTO) 0.8 10^3/uL (0.0-0.3); EOSINOPHILS % (AUTO) 8 % (0-10); LYMPHOCYTES # (AUTO) 1.7 X 10^3 (1.0-4.0); LYMPHOCYTES % (AUTO) 17 % (12-44); MEAN PLATELET VOLUME 9.2 FL (7.4-10.4); MONOCYTES # (AUTO) 0.5 X 10^3 (0.0-1.0); MONOCYTES % (AUTO) 5 % (0-12); NEUTROPHILS # (AUTO) 6.9 X 10^3 (1.8-7.8); NEUTROPHILS % (AUTO) 69 % (42-75); PLATELET COUNT 327 10^3/uL (130-400)
[2020-05-14 10:51] LABS: ALANINE AMINOTRANSFERASE 15 U/L (0-55); ALKALINE PHOSPHATASE 87 U/L (40-136); BILIRUBIN,TOTAL 0.3 MG/DL (0.1-1.0); BUN/CREATININE RATIO 12; CALCIUM 9.7 MG/DL (8.5-10.1); CARBON DIOXIDE 25 MMOL/L (21-32); CHLORIDE 96 MMOL/L (98-107); CREATININE SERUM 1.34 MG/DL (0.60-1.30); GFR ESTIMATED 52; GLUCOSE 214 MG/DL (70-105); POTASSIUM 4.4 MMOL/L (3.6-5.0); SODIUM 132 MMOL/L (135-145); TOTAL PROTEIN 7.4 GM/DL (6.4-8.2)
[2020-05-14] MEDS ORDERED: NS IV 500 ML 500 ML ONE (10:59)
[2020-05-14] MEDS ORDERED: NS IV 500 ML 500 ML IV SCH (11:00)
--- NOTE | 2020-05-14 11:07 | NUR ---
Sherlyn was updated at this time about lab results and what the plan is. We will draw repeat troponin and ekg at 1145. Once the results are back, Dr. Melchor will be updated and decide what he wants to do.
[2020-05-14] MEDS ORDERED: ASPIRIN 81 MG CHEW (CHILDREN'S ASA) PO ONE (12:30)
[2020-05-14] MEDS ORDERED: ENOXAPARIN 80 MG/0.8 ML (LOVENOX) SYR SC ONE (12:45)
--- NOTE | 2020-05-14 13:12 | NUR ---
Report was given to [facility] ems at this time. Care was transferred and pt left at this time.
--- NOTE | 2020-05-14 13:54 | NUR ---
HETAL HERNANDEZ admitted to room 410-1, with an admitting diagnosis of CP, on 05/14/20 from [facility] via EMS, accompanied by EMS. HETAL HERNANDEZ introduced to surroundings, call light, bed controls, phone, TV, temperature control, lights, meal times, smoking policy, visitor policy, side rail policy, bathrooms and showers. Patient Rights given to patient in the handbook. HETAL HERNANDEZ verbalizes understanding that [facility] is not responsible for the loss or damage to any personal effects or valuables that are kept in the patients posession during their hospitalization. The following Patient Care Plans were discussed with the PT: Discharge Planning, PAIN, AND CP. HETAL HERNANDEZ verbalizes understanding of Interdisciplinary Patient Education. Patient and/or family were informed about the Rapid Response Team and its purpose.
[2020-05-14 14:15] VITALS: BP 167/94
[2020-05-14] MEDS ORDERED: CATHETER FLUSH 10 ML SYR IV PRN (14:15)
[2020-05-14] MEDS ORDERED: NS IV 1000 ML 1,000 ML IV SCH (14:45)
[2020-05-14] MEDS ORDERED: ENOXAPARIN 100 MG/1 ML (LOVENOX) SYR SC SCH (14:45)
--- NOTE | 2020-05-14 15:16 | NUR ---
CHECKED WITH DR. LAZCANO RE DIET. AWAITING DR. SUGGS FOR ORDERS.
--- NOTE | 2020-05-14 15:41 | History & Physical-Hospitalist ---
History of Present Illness HPI/Chief Complaint [place] is a 70-year-old male with past medical history of hypertension, diabetes, hypothyroidism, adrenal insufficiency, coronary artery disease, colon cancer, who presented with chest pain. He reports that he was driving this morning and he developed chest pain in the center of his chest. The pain did not radiate. It was 7 out of 10 in severity. It lasted for about an hour. It was not associated with any diaphoresis, nausea, or vomiting. He did report some shortness of breath. He denies any fevers or chills. He denies any cough. He follows with Dr. Melchor for cardiology. Source: patient Exam Limitations: no limitations Date Seen 05/14/20 Time Seen by a Provider: 15:15 Attending Physician Lakshmi Lazcano MD PCP Hans Farmer MD Referring Physician Date of Admission May 14, 2020 at 13:50 Home Medications & Allergies Home Medications Reviewed patient Home Medication Reconciliation performed by pharmacy medication reconciliations industrial cleaning technician and/or nursing. Patients Allergies have been reviewed. Allergies Allergies Coded Allergies oxaliplatin (Verified Allergy, Intermediate, 05/14/20) Past Ntacbfc-Bopymp-Gsbdjy Hx Past Med/Social Hx: Reviewed Nursing Past Med/Soc Hx Patient Social History Alcohol Use: Denies Use Alcohol Beverage of Choice: [place] Recreational Drug Use: No Former Smoker, Quit: Jul 04, 1980 Type Used: Cigarettes 2nd Hand Smoke Exposure: No Recent Foreign Travel: No Contact w/other who traveled: No Recent Hopitalizations: No Recent Infectious Disease Expo: No Immunizations Up To Date Tetanus Booster (TDap): Unknown Date of Pneumonia Vaccine: Jul 26, 2016 Date of Influenza Vaccine: May 04, 2019 Seasonal Allergies Seasonal Allergies: No Past Medical History Surgeries: Abdominal, Bowel Surgery, Cardiac, Coronary Stent Currently Using CPAP: No Currently Using BIPAP: No Cardiac: Coronary Artery Disease, High Cholesterol, Hypertension Sexually Transmitted Disease: No HIV/AIDS: No Genitourinary: Bladder Infection Gastrointestinal: Gastrointestinal Bleed Endocrine: Diabetes, Non-Insulin dep HEENT: Cataract Loss of Vision: Bilateral Hearing Impairment: Denies Cancer: Bladder, Colon Did You Recieve Any Treatments: Yes What Type of Treatment Did You: Chemotherapy, Surgical Intervention Skin/Integumentary: Psoriasis History of Blood Disorders: Yes (ANEMIA) Adverse Reaction to Blood [place]: No (HAS HAD BLOOD WITH NO REACTION) Family History Abdominal aortic aneurysm Cardiovascular disease Cataracts Colon cancer Diabetes mellitus Glaucoma Hypertension Myocardial infarction Respiratory disorder Thyroid disease Visual disorder CAD Over 55 Years Old Review of Systems Constitutional: no symptoms reported EENTM: no symptoms reported Respiratory: no symptoms reported Cardiovascular: chest pain Gastrointestinal: no symptoms reported Genitourinary: no symptoms reported Musculoskeletal: no symptoms reported Skin: no symptoms reported Psychiatric/Neurological: No Symptoms Reported Physical Exam Physical Exam Vital Signs Vital Signs - First Documented 05/14/20 09:26 Temp 34.8 Pulse 81 Resp 15 B/P (MAP) 137/74 (95) Pulse Ox 98 O2 Delivery Room Air Capillary Refill : Less Than 3 Seconds Height, Weight, BMI Height: 6'3.00" Weight: 188lbs. 1.6oz. 85.290190iu; 22.01 BMI Method:Estimated General Appearance: No Apparent Distress, WD/WN Neck: Normal Inspection, Supple Respiratory: Lungs Clear, Normal Breath Sounds, No Respiratory Distress Cardiovascular: Regular Rate, Rhythm, No Edema, No Murmur Gastrointestinal: Normal Bowel Sounds, Non Tender, Soft Extremity: Normal Inspection, Non Tender, No Pedal Edema Neurologic/Psychiatric: Alert, Oriented x3, No Motor/Sensory Deficits, Normal M ood/Affect Skin: Normal Color, Warm/Dry Results Results/Procedures Labs Laboratory Tests 05/14/20 09:40 Patient resulted labs reviewed. Imaging: Reviewed Imaging Report Assessment/Plan Admission Diagnosis NSTEMI Admission Status: Inpatient Order (span 2 midnights) Reason for Inpatient Admission: NSTEMI requiring likely cardiology intervention Assessment and Plan NSTEMI CAD HLD Initial troponin negative Repeat troponin 0.55 EKG without acute abnormalities Trend troponin Loaded with ASA, continue daily Continue Plavix Lovenox therapeutic Lipitor Check lipid panel NPO for possible left heart cath Cardiology consulted, appreciate assistance T2DM SSI Adrenal insufficiency Hydrocortisone Hypothyroidism Synthroid DVT Prophylaxis: already receiving therapeutic anticoagulation Diagnosis/Problems Diagnosis/Problems (1) NSTEMI (non-ST elevation myocardial infarction) Status: Acute (2) CAD (coronary artery disease) Status: Chronic LAKSHMI LAZCANO MD May 14, 2020 15:40
[2020-05-14 15:45] VITALS: BP 165/88
[2020-05-14] MEDS ORDERED: METR60GE4 TP (15:48)
[2020-05-14] MEDS ORDERED: GABA300C PO (15:48)
[2020-05-14] MEDS ORDERED: NF-PIME1% TP (15:48)
[2020-05-14] MEDS ORDERED: LEVO112T55 PO (15:48)
[2020-05-14] MEDS ORDERED: LOTE5DRO7 OU (15:48)
[2020-05-14] MEDS ORDERED: DOCU100C37 PO (15:51)
[2020-05-14] MEDS ORDERED: DOMPERIDONE PO (15:51)
[2020-05-14] MEDS ORDERED: CYAN500T62 PO (15:51)
--- NOTE | 2020-05-14 15:54 | NUR ---
SPOKE WITH THE PT (CALLED THE ROOM PHONE) AND PT REQUESTED I GET IN TOUCH WITH HIS GEORGES. I CALLED GEOR[facility], THERE WAS A MEDICATION LIST ON HIS CHART, AND I WENT THRU THE EXT MED HISTORY TO COMPLETE THE MED REC ACCORDING TO GEORGES PT GETS THE FOLLOWING MEDICATIONS FROM [facility]: DOMPERIDONE 10MG ELIDEL CREAM METRONIDAZOLE 0.75& CREAM FINACEA 15% CREAM MIDODRINE 2.5MG -THE DIRECTIONS ARE 1 TAB TID BUT ACCORDING TO GEORGES ABOUT A MONTH AGO DR. SUGGS TOLD THE PT TO ONLY TAKE 1 TAB DAILY OTC MEDS: ASPIRIN 81MG CHLORPHENIRAMINE VIT B-12 DOCUSATE FLONASE
[2020-05-14] MEDS ORDERED: ENOXAPARIN 80 MG/0.8 ML (LOVENOX) SYR SC SCH (16:00)
[2020-05-14] MEDS: inSUlin ASPART (NovoLOG) 1 UNIT/0.01 ML (CHARGE PER UNIT) SC SCH ×2 (16:07→20:33)
--- NOTE | 2020-05-14 16:21 | Consultation-Cardiology ---
HPI-Cardiology Cardiology Consultation Date of Consultation 05/14/20 Date of Admission Time Seen by Provider: 16:16 Indication: chest pain HPI 70 years old gentleman with extensive cardiac history, history of hypertension, coronary artery disease, hyperlipidemia, has been having recurrent chest pain, had an abnormal stress test and scheduled for cardiac catheterization for next week. Chest pain this morning in the retrosternal area persisted for about an hour dull in nature achiness in the upper retrosternal area, came into the emergency room and chest pain relieved by 2 sublingual nitroglycerin. Did not have any acute EKG changes, second troponin became mildly elevated. Currently he is laying down in bed, no active chest pain. No shortness of breath. No palpitation, syncope or near syncopal episodes. Home Medications & Allergies Allergies: Coded Allergies: oxaliplatin (Verified Allergy, Intermediate, 05/14/20) [id number] Hx Patient Social History Marital Status: Employed/Student: retired Alcohol Use: Denies Use Recreational Drug Use: No Smoking Status: Former Smoker Type Used: Cigarettes 2nd Hand Smoke Exposure: No Recent Foreign Travel: No Recent Infectious Disease Expo: No Recent Hopitalizations: No Physical Abuse Screen: No Sexual Abuse: No Immunizations Up To Date Tetanus Booster (TDap): Unknown Date of Pneumonia Vaccine: Jul 17, 2016 Date of Influenza Vaccine: Mar 31, 2020 Past Medical History Discussed below Family Medical History Significant Family History: CAD Over 55 Years Old Family History: Abdominal aortic aneurysm Cardiovascular disease Cataracts Colon cancer Diabetes mellitus Glaucoma Hypertension Myocardial infarction Respiratory disorder Thyroid disease Visual disorder Review of Systems-General Review of Systems Constitutional: no symptoms reported, see HPI EENTM: see HPI, no symptoms reported Respiratory: no symptoms reported, see HPI Cardiovascular: see HPI, chest pain; No edema, No Hx of Intervention, No palpitations, No syncope, No vascular heart diseas, No other Gastrointestinal: no symptoms reported, see HPI Genitourinary: no symptoms reported, see HPI Musculoskeletal: no symptoms reported, see HPI Skin: no symptoms reported, see HPI Psychiatric/Neurological: No Symptoms Reported, See HPI Reviewed Test Results Reviewed Test Results Lab Laboratory Tests Test 05/14/20 09:40 05/14/20 11:45 Range/Units White Blood Count 10.0 4.3-11.0 10^3/uL Red Blood Count 4.02 L 4.35-5.85 10^6/uL Hemoglobin 11.0 L 13.3-17.7 G/DL Hematocrit 34 L 40-54 % Mean Corpuscular Volume 85 80-99 FL Mean Corpuscular Hemoglobin 27 25-34 PG Mean Corpuscular Hemoglobin Concent 32 32-36 G/DL Red Cell Distribution Width 14.5 10.0-14.5 % Platelet Count 327 130-400 10^3/uL Mean Platelet Volume 9.2 7.4-10.4 FL Immature Granulocyte % (Auto) 1 % Neutrophils (%) (Auto) 69 42-75 % Lymphocytes (%) (Auto) 17 12-44 % Monocytes (%) (Auto) 5 0-12 % Eosinophils (%) (Auto) 8 0-10 % Basophils (%) (Auto) 1 0-10 % Neutrophils # (Auto) 6.9 1.8-7.8 X 10^3 Lymphocytes # (Auto) 1.7 1.0-4.0 X 10^3 Monocytes # (Auto) 0.5 0.0-1.0 X 10^3 Eosinophils # (Auto) 0.8 H 0.0-0.3 10^3/uL Basophils # (Auto) 0.1 0.0-0.1 10^3/uL Immature Granulocyte # (Auto) 0.1 0.0-0.1 10^3/uL Sodium Level 132 L 135-145 MMOL/L Potassium Level 4.4 3.6-5.0 MMOL/L Chloride Level 96 L 98-107 MMOL/L Carbon Dioxide Level 25 21-32 MMOL/L Anion Gap 11 5-14 MMOL/L Blood Urea Nitrogen 16 7-18 MG/DL Creatinine 1.34 H 0.60-1.30 MG/DL Estimat Glomerular Filtration Rate 52 BUN/Creatinine Ratio 12 Glucose Level 214 H 70-105 MG/DL Calcium Level 9.7 8.5-10.1 MG/DL Corrected Calcium 9.7 8.5-10.1 MG/DL Total Bilirubin 0.3 0.1-1.0 MG/DL Aspartate Amino Transf (AST/SGOT) 16 5-34 U/L Alanine Aminotransferase (ALT/SGPT) 15 0-55 U/L Alkaline Phosphatase 87 40-136 U/L Troponin I < 0.30 0.55 *H <0.30 NG/ML Total Protein 7.4 6.4-8.2 GM/DL Albumin 4.0 3.2-4.5 GM/DL Physical Exam Physical Exam Vital Signs Vital Signs - First Documented 05/14/20 09:26 Temp 34.8 Pulse 81 Resp 15 B/P (MAP) 137/74 (95) Pulse Ox 98 O2 Delivery Room Air Capillary Refill : Less Than 3 SecondsLess Than 3 Seconds Height, Weight, BMI Height: 6'3.00" Weight: 188lbs. 1.6oz. 85.336247je; 22.01 BMI Method:Estimated General Appearance: No Apparent Distress, WD/WN Eyes: Bilateral Eye Normal Inspection, Bilateral Eye PERRL, Bilateral Eye EOMI HEENT: PERRL/EOMI, Normal ENT Inspection Neck: Normal Inspection, Supple Respiratory: Lungs Clear, Normal Breath Sounds, No Respiratory Distress Cardiovascular: Regular Rate, Rhythm, No Edema, No Murmur Gastrointestinal: Normal Bowel Sounds, Non Tender, Soft Back: Normal Inspection, No CVA Tenderness, No Vertebral Tenderness Extremity: Normal Inspection, Non Tender, No Pedal Edema Neurologic/Psychiatric: Alert, Oriented x3, No Motor/Sensory Deficits, Normal Mood/Affect Skin: Normal Color, Warm/Dry Lymphatic: No Adenopathy A/P-Cardiology Admission Diagnosis Unstable angina Coronary artery disease Hypertension Hyperlipidemia Assessment/Plan Unstable angina, non-ST elevation myocardial infarction, mild elevation in troponin, currently he is chest pain-free, he took metformin this morning, I will plan for cardiac catheterization in the morning. He was started on back on aspirin and Plavix, started on Lovenox today. Coronary artery disease, history of non-ST elevation myocardial infarction with 2 stents placed in the late in the LAD, cardiac catheterization June 2018 showed severe instent restenosis in the proximal LAD with balloon angioplasty with multiple inflation at high pressure using 2.5 x 15 mm had moderate to severe LAD stenosis distally treated medically. Had severe proximal circumflex artery stenosis with balloon angioplasty and excellent results. Repeat cardiac catheterization November 2018 showed restenosis in the LAD, I proceeded with deployment of a long Agnieszka stent 2.75 x 33 mm expanded to 2.9 with excellent results. The artery is heavily calcified. Had an abnormal stress test on April 29, 2020 with diaphragmatic attenuation and mild ischemia involving the mid to apical anterior wall, mild hypokinesia at the anterior wall, having non-ST elevation in active chest pain on and off, planning to proceed with cardiac catheterization History of syncope with orthostatic hypotension maintain on Midrin and steroid and feeling better. Continue to monitor History of anemia secondary to colon cancer, had significant improvement after hemicolectomy following with Dr. Del Rosario History of C. difficile colitis with extensive diarrhea and dehydration has improved History of DVT and one episode of PE in the past has been off Coumadin Diabetes mellitus, followed and managed by primary care physician next Hyperlipidemia maintained on statin next Mild bilateral carotid stenosis ultrasound was done in March 2020. Continue to monitor next Labile hypertension. Monitor blood pressure History of bladder cancer. Continue to monitor next Hypothyroidism followed and managed by primary care physician Clinical Quality Measures DVT/VTE Risk/Contraindication: Risk Factor Score Per Nursin RFS Level Per Nursing on Admit: 4+=Very High TAVON SUGGS MD May 14, 2020 16:21
[2020-05-14] MEDS ORDERED: HYDROCORTISONE 20 MG (CORTEF) TAB PO SCH (17:00)
[2020-05-14] MEDS: CLOPIDOGREL 75 MG (PLAVIX) TABLET PO SCH (17:12)
[2020-05-14] MEDS: NS IV 1000 ML 1,000 ML IV SCH (17:12)
[2020-05-14] MEDS: HYDROCORTISONE 20 MG (CORTEF) TAB PO SCH (17:12)
--- NOTE | 2020-05-14 17:21 | NUR ---
COVID TEST, MRSA TEST TO LAB. CONSENT SIGNED. ADD ON TO HEART CATH TO [facility] CLERK.
[2020-05-14 20:30] VITALS: BP 147/89
[2020-05-14] MEDS: CATHETER FLUSH 10 ML SYR IV SCH (20:38)
[2020-05-15] VITALS (10 sets, daily range): BP systolic 121–165; BP diastolic 69–98
[2020-05-15] MEDS: ENOXAPARIN 80 MG/0.8 ML (LOVENOX) SYR SC SCH ×2 (00:40→13:02)
[2020-05-15] MEDS: NS IV 1000 ML 1,000 ML IV SCH ×5 (03:32→20:33)
[2020-05-15] MEDS: CATHETER FLUSH 10 ML SYR IV SCH ×3 (03:32→20:16)
[2020-05-15 05:38] LABS: BASOPHILS # (AUTO) 0.1 10^3/uL (0.0-0.1); BASOPHILS % (AUTO) 1 % (0-10); EOSINOPHILS # (AUTO) 0.7 10^3/uL (0.0-0.3); EOSINOPHILS % (AUTO) 10 % (0-10); HEMATOCRIT 32 % (40-54); HEMOGLOBIN 10.1 g/dL (13.3-17.7); LYMPHOCYTES # (AUTO) 2.3 10^3/uL (1.0-4.0); LYMPHOCYTES % (AUTO) 31 % (12-44); MEAN CORPUSCULAR HEMOGLOBIN 27 pg (25-34); MEAN CORPUSCULAR HGB CONC 31 g/dL (32-36); MEAN CORPUSCULAR VOLUME 85 fL (80-99); MEAN PLATELET VOLUME 9.3 fL (9.0-12.2); MONOCYTES # (AUTO) 0.5 10^3/uL (0.0-1.0); MONOCYTES % (AUTO) 7 % (0-12); NEUTROPHILS # (AUTO) 3.9 10^3/uL (1.8-7.8); NEUTROPHILS % (AUTO) 52 % (42-75); PLATELET COUNT 271 10^3/uL (130-400); WHITE BLOOD COUNT 7.6 10^3/uL (4.3-11.0)
[2020-05-15 05:54] LABS: ALBUMIN 3.5 GM/DL (3.2-4.5); CHLORIDE 100 MMOL/L (98-107); SODIUM 132 MMOL/L (135-145)
[2020-05-15 05:55] LABS: CALCIUM 8.7 MG/DL (8.5-10.1)
[2020-05-15 05:56] LABS: TOTAL PROTEIN 6.4 GM/DL (6.4-8.2); TRIGLYCERIDES 65 MG/DL (<150); VLDL CHOLESTEROL 13 MG/DL (5-40)
[2020-05-15 05:57] LABS: CARBON DIOXIDE 21 MMOL/L (21-32); GLUCOSE 135 MG/DL (70-105)
[2020-05-15 05:58] LABS: BILIRUBIN,TOTAL 0.3 MG/DL (0.1-1.0)
[2020-05-15 06:00] LABS: ALKALINE PHOSPHATASE 70 U/L (40-136); CREATININE SERUM 0.97 MG/DL (0.60-1.30); GFR ESTIMATED > 60
[2020-05-15 06:01] LABS: BUN/CREATININE RATIO 15; CHOLESTEROL 107 MG/DL (< 200)
[2020-05-15 06:02] LABS: HDL CHOLESTEROL 36 MG/DL (40-60)
[2020-05-15 06:03] LABS: ALANINE AMINOTRANSFERASE 12 U/L (0-55)
[2020-05-15] MEDS: HYDROCORTISONE 20 MG (CORTEF) TAB PO SCH ×2 (06:28→16:37)
[2020-05-15] MEDS: LEVOTHYROXINE 150 MCG (LEVOTHROID) TAB PO SCH (06:28)
[2020-05-15] MEDS: inSUlin ASPART (NovoLOG) 1 UNIT/0.01 ML (CHARGE PER UNIT) SC SCH ×4 (06:28→19:50)
[2020-05-15] MEDS ORDERED: LIDOCAINE 1% INJ 20 ML 20 ML VIAL ONE (06:46)
[2020-05-15] MEDS ORDERED: HEParin (CATH LAB) 2,000 ML IV ONE (06:46)
[2020-05-15 06:52] LABS: INR 1.1 (0.8-1.4); PROTHROMBIN TIME PATIENT 14.1 SEC (12.2-14.7)
[2020-05-15] MEDS ORDERED: CLOPIDOGREL 75 MG (PLAVIX) TABLET PO SCH (09:00)
[2020-05-15] MEDS ORDERED: fentaNYL INJECTION 100 MCG/2 ML AMP ONE (11:11)
[2020-05-15] MEDS ORDERED: MIDAZOLAM 5 MG/5 ML (VERSED) VIAL ONE (11:11)
--- NOTE | 2020-05-15 11:26 | Cardiac Procedure Note-CS/ASA ---
Pre-Procedure Note Pre-Op Procedure Note H&P Reviewed The H&P was reviewed, patient examined and no changes noted. Date H&P Reviewed: May 15, 2020 Time H&P Reviewed: 11:26 Conscious Sedation Pre-Proced Time 11:26 ASA Score 3 For ASA 3 and 4: Consider anesthesia and medical clearance. Also, for patients with a history of failed moderate sedation consider anesthesia. Airway Lungs Heart ASA score ASA 1: a normal healthy patient ASA 2: a patient with a mild systemic disease (mid diabetes, controlled hypertension, obesity x ASA 3: a patient with a severe systemic disease that limits activity (angina, COPD, prior Myocardial infarction) ASA 4: a patient with an incapacitating disease that is a constant threat to life (CHF, renal failure) ASA 5: a moribund patient not expected to survive 24 hrs. (ruptured aneurysm) ASA 6: a declared brain- patient whose organs are being harvested. For emergent operations, add the letter E after the classification Mallampati Classification Grade 3 Sedation Plan Analgesia, Amnesia, Plan communicated to team members, Discussed options with patient/fam, Discussed risks with patient/fam The patient is an appropriate candidate to undergo the planned procedure, sedation, and anesthesia. The patient immediately re-assessed prior to indication. TAVON SUGGS MD May 15, 2020 11:26
--- NOTE | 2020-05-15 11:33 | Progress Note - Hospitalist ---
Subjective HPI/CC On Admission Date Seen by Provider: May 15, 2020 Time Seen by Provider: 10:30 [place] is a 70-year-old male with past medical history of hypertension, diabetes, hypothyroidism, adrenal insufficiency, coronary artery disease, colon cancer, who presented with chest pain. He reports that he was driving this morn ing and he developed chest pain in the center of his chest. The pain did not radiate. It was 7 out of 10 in severity. It lasted for about an hour. It was not associated with any diaphoresis, nausea, or vomiting. He did report some shortness of breath. He denies any fevers or chills. He denies any cough. He follows with Dr. Melchor for cardiology. Subjective/Events-last exam No CP Cath today No dyspnea Labs reviewed Home meds restarted Review of Systems Cardiovascular: Chest Pain Objective Exam Vital Signs Vital Signs Date Time Temp Pulse Resp B/P (MAP) Pulse Ox O2 Delivery O2 Flow Rate FiO2 05/15/20 20:00 36.4 80 20 142/82 (102) 97 Room Air Capillary Refill : Less Than 3 SecondsLess Than 3 Seconds General Appearance: No Apparent Distress, WD/WN Respiratory: Chest Non Tender, Lungs Clear, Normal Breath Sounds, No Accessory Muscle Use, No Respiratory Distress Cardiovascular: Regular Rate, Rhythm, No Edema, No Gallop, No JVD, No Murmur, Normal Peripheral Pulses Neurologic/Psychiatric: Alert, Oriented x3, No Motor/Sensory Deficits, Normal Mood/Affect Results/Procedures Lab Laboratory Tests 05/15/20 05:06 Patient resulted labs reviewed. Imaging: Reviewed Imaging Report Assessment/Plan Assessment and Plan Assess & Plan/Chief Complaint Assessment: Chest pain CAD previous stent DM Colon cancer Adrenal insufficiency Anemia Hypothyroidism Plan: Home meds Cath today Monitor creatinine Clinical Quality Measures DVT/VTE Risk/Contraindication: Risk Factor Score Per Nursin RFS Level Per Nursing on Admit: 4+=Very High LEONARDO GARRIDO DO May 15, 2020 11:33
[2020-05-15] MEDS ORDERED: meTOprolol 5 MG/5 ML (LOPRESSOR) VIAL ONE (11:47)
[2020-05-15] MEDS ORDERED: HEParin 1000 UNIT/ML (10ML VIAL) FOR BOLUS ONE (11:50)
[2020-05-15] MEDS ORDERED: NITRO DRIP 25000 MCG/D5W 250 ML IV ONE (11:52)
[2020-05-15] MEDS ORDERED: HYDROCORTISONE 20 MG (CORTEF) TAB PO SCH (12:00)
[2020-05-15] MEDS ORDERED: CLOPIDOGREL 300 MG (PLAVIX) TABLET PO ONE (12:03)
[2020-05-15] MEDS ORDERED: ASPIRIN 325 MG (5 GR) TABLET ONE (12:03)
[2020-05-15] MEDS ORDERED: PATIENT MAY USE OWN MEDS, ALL PO SCH (12:15)
--- NOTE | 2020-05-15 12:20 | Cardiac Cath Report ---
Cardiac Cath Report Physician (s)/Manager Lean (s) Physician TAVON SUGGS MD Pre-Procedure Diagnosis Pre-Procedure Diagnosis: coronary artery disease Post-Procedure Note Procedure Start Date: May 15, 2020 Name of Procedure: Left heart catheterization Balloon angioplasty to the LAD Findings/Procedure Note PROCEDURE NOTE: 70 years old gentleman with history of coronary artery disease, diabetes mellitus, hypertension hyperlipidemia, had an abnormal stress test, admitted with unstable angina and mild elevation in troponin, scheduled for cardiac catheterization possible PTCA. After explaining the procedure to the patient, all pros and cons were explained, all questions were answered. The patient signed the consent and then he was placed on the cardiac catheterization laboratory. Groin was prepped SL fashion local anesthesia was used. Sheath placed in the right femoral artery. Arlen right and left catheter were used to access the coronary system. Arlen right was prolapse of the left ventricular cavity, pressure was measured, pullback LV to aorta was done. Next Patient has severe instent restenosis in the mid LAD, given 6000 units of heparin then FL guide was advanced and BMW wire advanced through the LAD and parked distally and used emerge 2.75 x 20 mm with multiple inflation in the proximal and mid and distal stent with excellent results. At the end of the procedure the sheath was removed. Closure device was deployed FINDINGS: Hemodynamics LV 179/8 end-diastolic pressure of 8 Aorta 176/82 mean of 119 ANATOMY: Left Main is free of obstructive disease Left Anterior Descending has multiple overlapping stent in the midportion, severe in-stent restenosis, successful balloon angioplasty using emerge 2.75 x 20 mm with excellent results Left Circumflex is calcified artery with [id number] disease nonobstructive disease Right Coronory Artery discussed 5 artery with [id number] disease nonobstructive disease LV Gram was not done, pressure was measured CONCLUSION: 1. Severe in-stent restenosis in the mid LAD was successful balloon angioplasty using emerge 2.75 x 20 mm expanded to 3 mm under 14 valarie with excellent results 2. Otherwise calcified core system with [id number] disease nonobstructive disease DISCUSSION AND RECOMMENDATION: Continue to maximize medical therapy. I will consider laser atherectomy if patient continued to have high restenosis rate Anesthesia Type: Conscious Sedation Estimated blood loss (mL): 35 ml Contrast Amount: 47 ml Total Radiation Dose: 485 mGy Post-Procedure Diagnosis Post-operative diagnosis: Unstable angina Non-ST elevation myocardial infarctions Coronary artery disease Hypertension Hyperlipidemia TAVON SUGGS MD May 15, 2020 12:20 pm
--- NOTE | 2020-05-15 12:24 | Cardiology Progress Note ---
Subjective Date Seen by Provider: May 15, 2020 Time Seen by Provider: 12:22 Subjective/Events-last exam Patient is feeling better today. No chest pain Review of Systems General: No Chills, No Night Sweats, No Fatigue, No Malaise, No Appetite, No Other HEENT: No Head Aches, No Visual Changes, No Eye Pain, No Ear Pain, No Dysphasia, No Sinus Congestion, No Post Nasal Drip, No Sore Throat, No Other Pulmonary: No Dyspnea, No Cough, No Pleuritic Chest Pain, No Other Cardiovascular: No: Chest Pain, Palpitations, Orthopnea, Paroxysmal Noc. Dyspnea, Edema, Lt Headedness, Other Objective-Cardiology Exam Last Set of Vital Signs Vital Signs 05/15/20 08:25 Temp 36.0 Pulse 95 Resp 20 B/P (MAP) 133/90 (104) Pulse Ox 97 O2 Delivery Room Air Capillary Refill : Less Than 3 SecondsLess Than 3 Seconds I&O Intake and Output 05/15/20 00:00 Intake Total 1040 ml Balance 1040 ml Intake Oral 540 ml IV Total 500 ml # Voids 4 Daily Weight Change No No General: Alert, Oriented X3, Cooperative HEENT: Atraumatic, PERRLA Neck: Supple, No JVD, No Thyromegaly Lungs: Clear to Auscultation, Normal Air Movement Heart: Regular Rate, Normal S1, Normal S2, No Murmurs Abdomen: Normal Bowel Sounds, Soft, No Tenderness, No Hepatosplenomegaly, No Masses Extremities: No Clubbing, No Cyanosis, No Edema, Normal Pulses, No Tenderness/Swelling Skin: No Rashes, No Breakdown, No Significant Lesion Neuro: Normal Gait, Normal Speech, Strength at 5/5 X4 Ext, Normal Tone, Sensation Intact Psych/Mental Status: Mental Status NL, Mood NL Results Lab Laboratory Tests 05/15/20 05:06 A/P-Cardiology Admission Diagnosis Unstable angina Coronary artery disease Hypertension Hyperlipidemia Assessment/Plan Unstable angina, non-ST elevation myocardial infarction, status post cardiac catheterization with balloon angioplasty for severe in-stent restenosis in the LAD Coronary artery disease, history of non-ST elevation myocardial infarction with 2 stents placed in the late 90 in the LAD, cardiac catheterization June 2018 showed severe instent restenosis in the proximal LAD with balloon angioplasty with multiple inflation at high pressure using 2.5 x 15 mm had moder ate to severe LAD stenosis distally treated medically. Had severe proximal circumflex artery stenosis with balloon angioplasty and excellent results. Repeat cardiac catheterization November 2018 showed restenosis in the LAD, I proceeded with deployment of a long Agnieszka stent 2.75 x 33 mm expanded to 2.9 with excellent results. The artery is heavily calcified. Repeat cardiac catheterization was done today showing severe instent restenosis in the mid LAD, successful balloon angioplasty using emerge 2.75 x 20 mm. History of syncope with orthostatic hypotension maintain on Midrin and steroid and feeling better. Continue to monitor Severe hypertension, labile blood pressure. I will start lisinopril and evaluate tolerance and response History of anemia secondary to colon cancer, had significant improvement after hemicolectomy following with Dr. Del Rosario History of C. difficile colitis with extensive diarrhea and dehydration has improved History of DVT and one episode of PE in the past has been off Coumadin Diabetes mellitus, followed and managed by primary care physician next Hyperlipidemia maintained on statin next Mild bilateral carotid stenosis ultrasound was done in March 2020. Continue to monitor History of bladder cancer. Continue to monitor next Hypothyroidism followed and managed by primary care physician Clinical Quality Measures DVT/VTE Risk/Contraindication: Risk Factor Score Per Nursin RFS Level Per Nursing on Admit: 4+=Very High TAVON SUGGS MD May 15, 2020 12:24 pm
[2020-05-15] MEDS ORDERED: lisINopril 20 MG (PRINIVIL) TABLET PO NR (12:30)
--- NOTE | 2020-05-15 12:39 | NUR ---
"RD ASSESSMENT PMHx: HTN; DM; hypothyroidism; CAD; CA(colon,bladder), hypercholesterolemia; PT INTERACTION: Pt was awake and pleasant during nutrition assessment. Pt states current appetite is good. Note PO intake 100% x1meal, per chart review. Pt states following a regular diet at home, and has no issues with chewing/swallowing food. Pt states no recent issues with nausea, vomiting, constipation, or diarrhea, and that his last BM was 05/14. Note pt not currently on bowel regimen per chart review. Pt states no recent wt changes. Note recent 6# wt gain x5mon, per chart review. Pt states current DM management is good. Note recent HbA1c 6.6 (04/29/2020), per chart review. ABNORMAL NUTRITION-RELATED LAB VALUES LOW: Na 132; HDL 36 HIGH: glu 135 Est. kcal needs: 2000 kcal | 25 kcal/kg Est. Pro needs: 64 g Pro | 0.8 g Pro/kg PES STATEMENT: Given current appetite and PO intake, no nutrition diagnosis at this time (NO-1.1) INTERVENTION: Continue with current diet order of CHO 60g/m 1snack diet. Discussed and provided diet education on DM management. Briefly reinforced previous educations (not given by this RD) on CHO counting and fiber intake. Pt verbalized understanding of information provided. Will continue to follow and reassess as pt needs, intake, and status change. Harrison Cervantes, MS RD LD"
[2020-05-15] MEDS: CLOPIDOGREL 75 MG (PLAVIX) TABLET PO SCH (13:01)
[2020-05-15] MEDS: ASPIRIN E.C. 81 MG (ECOTRIN) TAB PO SCH (13:01)
[2020-05-15] MEDS: PANTOPRAZOLE 20 MG TABLET (PROTONIX) PO SCH (13:19)
[2020-05-15] MEDS ORDERED: LORATADINE (CLARITIN) 10 MG TAB ONE (16:33)
[2020-05-15] MEDS: LORATADINE (CLARITIN) 10 MG TAB PO SCH (16:37)
[2020-05-15] MEDS ORDERED: CHLORPHENIRAMINE 4 MG TAB (NON-FORMULARY) PO PRN (21:15)
[2020-05-15] MEDS ORDERED: PIMECROLIMUS 1% TP PRN (21:15)
[2020-05-15] MEDS ORDERED: NON-FORMULARY MEDICATION 1 EA EA (Semaglutide (Ozempic) 1 MG) SQ SCH (21:15)
[2020-05-15] MEDS ORDERED: NON-FORMULARY MEDICATION 1 EA EA (Fluticasone Propionate (Flonase Allergy Relief) 2 SPRAY) NS PRN (21:15)
[2020-05-15] MEDS ORDERED: DOCUSATE SODIUM 100 MG (COLACE) CAP PO PRN (21:15)
[2020-05-16 00:40] VITALS: BP 134/76
[2020-05-16] MEDS: ENOXAPARIN 80 MG/0.8 ML (LOVENOX) SYR SC SCH (01:42)
[2020-05-16 04:01] LABS: HEMOGLOBIN 9.7 g/dL (13.3-17.7); MEAN PLATELET VOLUME 9.3 fL (9.0-12.2); WHITE BLOOD COUNT 9.3 10^3/uL (4.3-11.0)
[2020-05-16 04:21] LABS: CHLORIDE 99 MMOL/L (98-107); POTASSIUM 4.3 MMOL/L (3.6-5.0); SODIUM 131 MMOL/L (135-145)
[2020-05-16 04:22] LABS: CALCIUM 8.5 MG/DL (8.5-10.1); GLUCOSE 140 MG/DL (70-105)
[2020-05-16 04:24] LABS: CARBON DIOXIDE 22 MMOL/L (21-32)
[2020-05-16 04:26] LABS: CREATININE SERUM 0.98 MG/DL (0.60-1.30); GFR ESTIMATED > 60
[2020-05-16 04:27] LABS: BUN/CREATININE RATIO 16
[2020-05-16 04:48] VITALS: BP 115/75
[2020-05-16] MEDS ORDERED: METF-399 PO (05:29)
--- NOTE | 2020-05-16 05:30 | Discharge Inst-Post CATH ---
Discharge Inst-CATH/EP Problems Reviewed?: Yes Post Cardiac Cath/EP D/C Inst Follow Up/Plan Appointment with Dr Melchor in 2-4 weeks Hold Metformin for 48 hours <b>CARDIAC CATH/EP PROCEDURE DISCHARGE INSTRUCTIONS</b> ACTIVITY * Go Home directly and rest. * Limit activity of the leg (or wrist if it was used) for 7 days including aerobics, swimming, jogging, bicycling, etc. * Restrict stair-climbing for 7 days if possible, if not, climb up with your non-cath leg, then bring together on the same step. * Avoid lifting, pushing, pulling or excessive movement of the affected extremity for 7 days. * Customary sexual activity may be resumed after 2 days-use caution not to use a position that strains or causes pain to the affected extremity. * No driving for 24 hours. * NO SMOKING. * Avoid straining for bowel movements for 7 days. * Gentle walking on level ground is allowed. * Returning to work will depend on the type of procedure and the results. Your doctor will discuss this with you. CALL YOUR DOCTOR FOR ANY OF THE FOLLOWING: *If bleeding from the puncture site occurs- Apply gentle pressure to site with clean cloth and call your doctor or EMS. * If a knot or lump forms under the skin, increases in size, or causes pain. * If bruising appears to be worsening or moving further down your leg instead of disappearing. * Temperature above 101 F. CARE OF YOUR GROIN INCISION; * Bruising or purple discoloration of the skin near the puncture site is common. * You may shower only, no bathtub bathing for 5 days. Be careful to avoid slipping as your leg may feel stiff. * If a closure device was used on your femoral artery, please see the attached guide regarding care of the device and your leg. * Leave dressing on FOR 24 hours. CARE OF YOUR WRIST INCISION; * Bruising or purple discoloration of the skin near the puncture site is common. * You may shower. * DO NOT submerge wrist. * Leave dressing on FOR 24 hours. TAVON MELCHOR MD May 16, 2020 05:30
[2020-05-16] MEDS: HYDROCORTISONE 20 MG (CORTEF) TAB PO SCH (06:38)
[2020-05-16] MEDS: CATHETER FLUSH 10 ML SYR IV SCH (06:38)
[2020-05-16] MEDS: LEVOTHYROXINE 150 MCG (LEVOTHROID) TAB PO SCH (06:38)
[2020-05-16] MEDS: inSUlin ASPART (NovoLOG) 1 UNIT/0.01 ML (CHARGE PER UNIT) SC SCH (06:39)
[2020-05-16] MEDS ORDERED: LEVOTHYROXINE 112 MCG (LEVOTHROID) TAB PO SCH (06:52)
[2020-05-16] MEDS ORDERED: DOMPERIDONE 10 MG PO SCH (07:00)
[2020-05-16] MEDS ORDERED: CYANOCOBALAMIN 1,000 MCG (VITAMIN B-12) TABLET PO SCH (07:12)
--- NOTE | 2020-05-16 07:40 | Cardiology Progress Note ---
Subjective Date Seen by Provider: May 16, 2020 Time Seen by Provider: 07:39 Subjective/Events-last exam Patient is laying down in bed, feeling well. Groin is healing well. No chest pain Review of Systems General: No Chills, No Night Sweats, No Fatigue, No Malaise, No Appetite, No Other HEENT: No Head Aches, No Visual Changes, No Eye Pain, No Ear Pain, No Dysphasia , No Sinus Congestion, No Post Nasal Drip, No Sore Throat, No Other Pulmonary: No Dyspnea, No Cough, No Pleuritic Chest Pain, No Other Cardiovascular: No: Chest Pain, Palpitations, Orthopnea, Paroxysmal Noc. Dyspnea, Edema, Lt Headedness, Other Objective-Cardiology Exam Last Set of Vital Signs Vital Signs 05/16/20 04:48 Temp 36.0 Pulse 86 Resp 18 B/P (MAP) 115/75 (88) Pulse Ox 96 O2 Delivery Room Air Capillary Refill : Less Than 3 SecondsLess Than 3 Seconds I&O Intake and Output 05/16/20 00:00 Intake Total 1540 ml Balance 1540 ml Intake Oral 840 ml IV Total 700 ml # Voids 7 General: Alert, Oriented X3, Cooperative HEENT: Atraumatic, PERRLA Neck: Supple, No JVD, No Thyromegaly Lungs: Clear to Auscultation, Normal Air Movement Heart: Regular Rate, Normal S1, Normal S2, No Murmurs Abdomen: Normal Bowel Sounds, Soft, No Tenderness, No Hepatosplenomegaly, No Masses Extremities: No Clubbing, No Cyanosis, No Edema, Normal Pulses, No Tenderness/Swelling Skin: No Rashes, No Breakdown, No Significant Lesion Neuro: Normal Gait, Normal Speech, Strength at 5/5 X4 Ext, Normal Tone, Sensa tion Intact Psych/Mental Status: Mental Status NL, Mood NL Results Lab Laboratory Tests 05/16/20 03:35 A/P-Cardiology Admission Diagnosis Unstable angina Coronary artery disease Hypertension Hyperlipidemia Assessment/Plan Unstable angina, non-ST elevation myocardial infarction, status post cardiac catheterization with balloon angioplasty for severe in-stent restenosis in the LAD Coronary artery disease, history of non-ST elevation myocardial infarction with 2 stents placed in the late 90 in the LAD, cardiac catheterization June 2018 showed severe instent restenosis in the proximal LAD with balloon angioplasty with multiple inflation at high pressure using 2.5 x 15 mm had moderate to severe LAD stenosis distally treated medically. Had severe proximal circumflex artery stenosis with balloon angioplasty and excellent results. Repeat cardiac catheterization November 2018 showed restenosis in the LAD, I proceeded with deployment of a long Agnieszka stent 2.75 x 33 mm expanded to 2.9 with excellent results. The artery is heavily calcified. Repeat cardiac catheterization was done today showing severe instent restenosis in the mid LAD, successful balloon angioplasty using emerge 2.75 x 20 mm. History of syncope with orthostatic hypotension maintain on Midrin and steroid and feeling better. Continue to monitor Severe hypertension, labile blood pressure. I will start lisinopril and evaluate tolerance and response History of anemia secondary to colon cancer, had significant improvement after hemicolectomy following with Dr. Del Rosario History of C. difficile colitis with extensive diarrhea and dehydration has improved History of DVT and one episode of PE in the past has been off Coumadin Diabetes mellitus, followed and managed by primary care physician next Hyperlipidemia maintained on statin next Mild bilateral carotid stenosis ultrasound was done in March 2020. Continue to monitor History of bladder cancer. Continue to monitor next Hypothyroidism followed and managed by primary care physician Okay for discharge from cardiology standpoint and follow up as an outpatient Clinical Quality Measures DVT/VTE Risk/Contraindication: Risk Factor Score Per Nursin RFS Level Per Nursing on Admit: 4+=Very High TAVON SUGGS MD May 16, 2020 7:40 am
[2020-05-16 08:00] VITALS: BP 109/72
--- NOTE | 2020-05-16 08:44 | NUR ---
OK TO [facility] HOME PER DR. GARRIDO AND DR. SUGGS.
--- NOTE | 2020-05-16 08:48 | Discharge Summary ---
Discharge Summary Hospital Course Was the Problem List Reviewed?: Yes Problems/Dx: (1) NSTEMI (non-ST elevation myocardial infarction) Status: Acute (2) CAD (coronary artery disease) Status: Chronic Hospital Course Date of Admission: May 14, 2020 at 13:50 Admission Diagnosis : Family Physician/Provider: Hans Farmer MD Date of Discharge: 05/16/20 Discharge Diagnosis: NSTEMI, s/p cath with angioplasty Hospital Course: Patient admitted for chest pain, elevated troponin prompted cath and intervention completed without complications. Labs and Pending Lab Test: Laboratory Tests 05/15/20 09:37: Glucometer 108 05/15/20 19:46: Glucometer 157H 05/16/20 03:35: White Blood Count 9.3, Red Blood Count 3.52L, Hemoglobin 9.7L, Hematocrit 30L, Mean Corpuscular Volume 84, Mean Corpuscular Hemoglobin 28, Mean Corpuscular Hemoglobin Concent 33, Red Cell Distribution Width 14.4, Platelet Count 248, Mean Platelet Volume 9.3, Sodium Level 131L, Potassium Level 4.3, Chloride Level 99, Carbon Dioxide Level 22, Anion Gap 10, Blood Urea Nitrogen 16, Creatinine 0.98, Estimat Glomerular Filtration Rate > 60, BUN/Creatinine Ratio 16, Glucose Level 140H, Calcium Level 8.5 05/16/20 06:32: Glucometer 136H Microbiology 05/14/20 MRSA Screen - Final, Complete MRSA not isolated Home Meds Active Metformin HCl 1,000 Mg Tablet 1,000 Mg PO BID WITH MEALS Hold Metformin for 48 hours Reported Docusate Sodium 100 Mg Capsule 100 Mg PO DAILY PRN Vitamin B-12 (Cyanocobalamin (Vitamin B-12)) 500 Mcg Tablet 500 Mcg PO DAILY [Domperidone] 10 Tab 10 Mg PO QIDACHS RECIEVED MED FROM [facility] Levothyroxine Sodium 112 Mcg Tablet 112 Mcg PO DAILY Neurontin (Gabapentin) 300 Mg Capsule 300 Mg PO 1800 TAKES WITH SUPPER Lotemax Sm (Loteprednol Etabonate) 5 Gm Drops.gel 1 Drop OU 1900 Hydrocortisone 10 Mg Tablet 2.5 Mg PO 1500 TAKES 1/4 OF A 10MG TAB Hydrocortisone 10 Mg Tablet 5 Mg PO 1200 TAKES OF A 10MG TAB Hydrocortisone 10 Mg Tablet 10 Mg PO DAILY Ozempic (Semaglutide) 1 Mg/0.75 Ml Pen.injctr 1 Mg SQ MONDAY Atorvastatin Calcium 20 Mg Tablet 20 Mg PO 1800 TAKES WITH SUPPER Midodrine HCl 2.5 Mg Tablet 2.5 Mg PO DAILY Glipizide 5 Mg Tablet 5 Mg PO DAILY Plavix (Clopidogrel Bisulfate) 75 Mg Tablet 75 Mg PO DAILY Chlorpheniramine Maleate 4 Mg Tablet 8 Mg PO BID PRN Flonase Allergy Relief (Fluticasone Propionate) 9.9 Ml [place].susp 2 [place] NS DAILY PRN Metronidazole 45 Gm Cream..g. 1 Applic TP BID Finacea (Azelaic Acid) 50 Gm Gel..gram. 1 Applic TP DAILY Elidel (Pimecrolimus) 30 Gm Cream.gm. TP DAILY PRN Lo-Dose Aspirin EC (Aspirin) 81 Mg Tablet.dr 81 Mg PO 1500 Assessment/Pt Instructions chc 1 week Discharge Planning: <30 minutes discharge planning Discharge Instructions Discharge Diet: Cardiac Diet Discharge Physical Examination Vital Signs Vital Signs Date Time Temp Pulse Resp B/P (MAP) Pulse Ox O2 Delivery O2 Flow Rate FiO2 05/16/20 08:35 Room Air 05/16/20 08:00 36.3 82 16 109/72 (84) 97 General Appearance: No Apparent Distress, WD/WN, Chronically ill Respiratory: Lungs Clear Cardiovascular: Regular Rate, Rhythm Neurologic/Psychiatric: Alert, Oriented x3, No Motor/Sensory Deficits, Normal Mood/Affect Allergies: Coded Allergies: oxaliplatin (Verified Allergy, Intermediate, 05/14/20) Discharge Summary Date of Admission May 14, 2020 at 13:50 Date of Discharge Discharge Date: May 16, 2020 Admission Diagnosis NSTEMI Discharge Diagnosis Assessment: Chest pain CAD previous stent DM Colon cancer Adrenal insufficiency Anemia Hypothyroidism Plan: Home meds Cath today Monitor creatinine (1) NSTEMI (non-ST elevation myocardial infarction) Status: Acute (2) CAD (coronary artery disease) Status: Chronic Clinical Quality Measures DVT/VTE Risk/Contraindication: Risk Factor Score Per Nursin RFS Level Per Nursing on Admit: 4+=Very High LEONARDO GARRIDO DO May 16, 2020 08:48
[2020-05-16] MEDS: CLOPIDOGREL 75 MG (PLAVIX) TABLET PO SCH (08:50)
[2020-05-16] MEDS: PANTOPRAZOLE 20 MG TABLET (PROTONIX) PO SCH (08:50)
[2020-05-16] MEDS: LORATADINE (CLARITIN) 10 MG TAB PO SCH (08:50)
[2020-05-16] MEDS: ASPIRIN E.C. 81 MG (ECOTRIN) TAB PO SCH (08:50)
[2020-05-16] MEDS: NS IV 1000 ML 1,000 ML IV SCH ×2 (08:53→08:54)
[2020-05-16] MEDS ORDERED: MIDODRINE 10 MG (PROAMATINE) TAB PO SCH (09:00)
[2020-05-16] MEDS ORDERED: AZELAIC ACID TP SCH (09:00)
[2020-05-16] MEDS ORDERED: NON-FORMULARY MEDICATION 1 EA EA (Hydrocortisone 10 MG) PO SCH (09:00)
[2020-05-16] MEDS ORDERED: ASPIRIN E.C. 81 MG (ECOTRIN) TAB PO SCH ×2 (09:00→15:00)
[2020-05-16] MEDS ORDERED: glipiZIDE 5 MG (GLUCOTROL) TAB PO SCH (09:00)
[2020-05-16] MEDS ORDERED: lisINopril 20 MG (PRINIVIL) TABLET PO SCH (09:00)
[2020-05-16] MEDS ORDERED: METRONIDAZOLE TOP SCH (09:00)
[2020-05-16] MEDS ORDERED: CLOPIDOGREL 75 MG (PLAVIX) TABLET PO SCH ×2 (09:00)
[2020-05-16 09:45] VITALS: BP 109/72
[2020-05-16] MEDS ORDERED: HYDROCORTISONE 5 MG PO SCH (12:00)
[2020-05-16] MEDS ORDERED: HYDROCORTISONE 2.5 MG PO SCH (15:00)
[2020-05-16] MEDS ORDERED: GABAPENTIN 300 MG (NEURONTIN) CAP PO SCH (18:00)
[2020-05-16] MEDS ORDERED: LOTEPREDNOL ETABONATE OU SCH (19:00)
== END 2020-05-16 10:19 | disposition home or self-care (01) | DRG 251 ==
LOC: EDUNIT# 09:25 → ER FS 09:27 → 4TH 13:50 → ICU 05-15 12:01 → CSD 05-15 16:46
PROVIDERS: ADMIT Internal Medicine; ATTEND Family Medicine
PROC: 02703ZZ Dilation of Coronary Artery, One Artery, Percutaneous Approach (ICD-10-PCS; principal; 2020-05-15)
PROC: 4A023N7 Measurement of Cardiac Sampling and Pressure, Left Heart, Percutaneous Approach (ICD-10-PCS; 2020-05-15)
PROC: B2111ZZ Fluoroscopy of Multiple Coronary Arteries using Low Osmolar Contrast (ICD-10-PCS; 2020-05-15)
PROC: B2151ZZ Fluoroscopy of Left Heart using Low Osmolar Contrast (ICD-10-PCS; 2020-05-15)
DX: I21.4 Non-ST elevation (NSTEMI) myocardial infarction (principal); T82.855A Stenosis of coronary artery stent, initial encounter; E27.40 Unspecified adrenocortical insufficiency; I25.110 Atherosclerotic heart disease of native coronary artery with unstable angina pectoris; I95.1 Orthostatic hypotension; I10 Essential (primary) hypertension; Z86.718 Personal history of other venous thrombosis and embolism; Z86.711 Personal history of pulmonary embolism; E11.9 Type 2 diabetes mellitus without complications; E78.5 Hyperlipidemia, unspecified; I65.23 Occlusion and stenosis of bilateral carotid arteries; C67.9 Malignant neoplasm of bladder, unspecified; E03.9 Hypothyroidism, unspecified; I25.2 Old myocardial infarction; Z95.5 Presence of coronary angioplasty implant and graft; Z85.038 Personal history of other malignant neoplasm of large intestine
CPT/HCPCS: 36415; 71045; 80048; 80053; 80061; 82962; 84484; 85025; 85027; 85610; 85730; 87081; 87635; 93458

== ENCOUNTER 2020-05-25 10:07 | Outpatient (RCR) | payer MEDICARE ==
[~2020-05-25 10:07] MED LIST changes: +CYAN500T8 PO; +DOCU100C37 PO; +DOMPERIDONE PO; +GABA300C PO; +LOTE5DRO7 OU; +METR60GE4 TP
[2020-05-25 10:25] LABS: BASOPHILS # (AUTO) 0.1 10^3/uL (0.0-0.1); BASOPHILS % (AUTO) 1 % (0-10); EOSINOPHILS % (AUTO) 9 % (0-10); HEMATOCRIT 31 % (40-54); HEMOGLOBIN 10.1 g/dL (13.3-17.7); LYMPHOCYTES % (AUTO) 20 % (12-44); MEAN CORPUSCULAR HEMOGLOBIN 28 pg (25-34); MEAN CORPUSCULAR HGB CONC 33 g/dL (32-36); MEAN CORPUSCULAR VOLUME 86 fL (80-99); MEAN PLATELET VOLUME 9.2 fL (9.0-12.2); MONOCYTES # (AUTO) 0.6 10^3/uL (0.0-1.0); MONOCYTES % (AUTO) 5 % (0-12); NEUTROPHILS # (AUTO) 6.7 10^3/uL (1.8-7.8); NEUTROPHILS % (AUTO) 65 % (42-75); PLATELET COUNT 283 10^3/uL (130-400); WHITE BLOOD COUNT 10.4 10^3/uL (4.3-11.0)
[2020-05-25 10:54] LABS: ALBUMIN 3.8 GM/DL (3.2-4.5); BILIRUBIN,TOTAL 0.4 MG/DL (0.1-1.0); CALCIUM 8.8 MG/DL (8.5-10.1); CREATININE SERUM 1.35 MG/DL (0.60-1.30); POTASSIUM 4.4 MMOL/L (3.6-5.0)
== END 2020-08-12 16:54 | disposition home or self-care (01) ==
LOC: ONC 10:07
PROVIDERS: ATTEND Internal Medicine Hematology & Oncology
DX: C18.2 Malignant neoplasm of ascending colon (principal); C67.9 Malignant neoplasm of bladder, unspecified; K92.2 Gastrointestinal hemorrhage, unspecified; D64.9 Anemia, unspecified; Z80.9 Family history of malignant neoplasm, unspecified; Z87.891 Personal history of nicotine dependence
CPT/HCPCS: 80053; 82274 ×2; 82378; 82728; 83540; 85025; G0463; 36591

== ENCOUNTER 2020-07-22 08:17 | Emergency (ER) | payer MEDICARE ==
[~2020-07-22] VITALS: Ht 190 cm; Wt 85.0 kg
[~2020-07-22 08:17] MED LIST changes: +CYAN500T64 PO; -CYAN500T8 PO
[2020-07-22] MEDS ORDERED: NS IV 1000 ML 1,000 ML IV SCH (08:30)
--- NOTE | 2020-07-22 08:38 | ED Syncope ---
General Stated Complaint: SYNCOPAL EPISODE History of Present Illness Date Seen by Provider: Jul 22, 2020 Time Seen by Provider: 08:25 Initial Comments 70-year-old male presents with episode of lightheadedness and nearly passing out this morning when he first got up out of bed. States that he has had no recent illness, fever or chills and has been eating and drinking normally. Denies chest pain, swelling of extremities, cough or shortness of air. EMS stated his blood pressure was low on arrival 60's / 40's normal saline bolus was given with improvement. Allergies and Home Medications Allergies Coded Allergies: oxaliplatin (Verified Allergy, Intermediate, 05/14/20) Home Medications Aspirin 81 Mg Tablet.dr, 81 MG PO 1500, (Reported) Atorvastatin Calcium 20 Mg Tablet, 20 MG PO 1800, (Reported) TAKES WITH SUPPER Azelaic Acid 50 Gm Gel..gram., 1 APPLIC TP DAILY, (Reported) Chlorpheniramine Maleate 4 Mg Tablet, 8 MG PO BID PRN for ALLERGY SYMPTOMS, (Reported) Clopidogrel Bisulfate 75 Mg Tablet, 75 MG PO DAILY, (Reported) Cyanocobalamin (Vitamin B-12) 500 Mcg Tablet, 500 MCG PO DAILY, (Reported) Docusate Sodium 100 Mg Capsule, 100 MG PO DAILY PRN for CONSTIPATION-1ST LINE, (Reported) Fluticasone Propionate 9.9 Ml [place].susp, 2 [place] NS DAILY PRN for ALLERGIES, (Reported) Gabapentin 300 Mg Capsule, 300 MG PO 1800, (Reported) TAKES WITH SUPPER Glipizide 5 Mg Tablet, 5 MG PO DAILY, (Reported) Hydrocortisone 10 Mg Tablet, 10 MG PO DAILY, (Reported) Hydrocortisone 10 Mg Tablet, 5 MG PO 1200, (Reported) TAKES OF A 10MG TAB Hydrocortisone 10 Mg Tablet, 2.5 MG PO 1500, (Reported) TAKES 1/4 OF A 10MG TAB Levothyroxine Sodium 112 Mcg Tablet, 112 MCG PO DAILY, (Reported) Loteprednol Etabonate 5 Gm Drops.gel, 1 DROP OU 1900, (Reported) Metformin HCl 1,000 Mg Tablet, 1,000 MG PO BID WITH MEALS Hold Metformin for 48 hours Prescribed by: TAVON SUGGS on 05/16/20 0529 Metronidazole 45 Gm Cream..g., 1 APPLIC TP BID, (Reported) Midodrine HCl 2.5 Mg Tablet, 2.5 MG PO DAILY, (Reported) Pimecrolimus 30 Gm Cream.gm., TP DAILY PRN for PSORIASIS, (Reported) Semaglutide 1 Mg/0.75 Ml Pen.injctr, 1 MG SQ MONDAY, (Reported) [Domperidone] 10 TAB, 10 MG PO QIDACHS, (Reported) RECIEVED MED FROM [facility] Patient Home Medication List Home Medication List Reviewed: Yes Review of Systems Constitutional: No chills; dizziness; No fever; malaise, weakness (last few days) Respiratory: No cough, No short of breath Cardiovascular: No chest pain, No edema, No palpitations; syncope (NEAR syncope) Gastrointestinal: No abdominal pain, No loss of appetite, No nausea, No vomit ing Musculoskeletal: No back pain, No joint pain Skin: No change in color, No rash Psychiatric/Neurological: Denies Headache, Denies Numbness, Denies Paresthesia, Denies Seizure, Denies Tremors Past [id number] Hx Past Med/Social Hx: Reviewed Nursing Past Med/Soc Hx Patient Social History Alcohol Beverage of Choice: [place] Type Used: Cigarettes Former Smoker, Quit: Jul 04, 1980 2nd Hand Smoke Exposure: No Recent Hopitalizations: No Immunizations Up To Date Tetanus Booster (TDap): Unknown Date of Pneumonia Vaccine: Jul 17, 2016 Date of Influenza Vaccine: Mar 31, 2020 Seasonal Allergies Seasonal Allergies: No Past Medical History Surgeries: Yes (BLADDER SURGERY-CANCER, COLON RESECTION port) Abdominal, Bowel Surgery, Cardiac, Coronary Stent Respiratory: Yes Pulmonary Embolism Currently Using CPAP: No Currently Using BIPAP: No Cardiac: Yes (STENTS in 1996, ANGIOPLASTY 06/2018) Coronary Artery Disease, High Cholesterol, Hypertension Neurological: No Sexually Transmitted Disease: No HIV/AIDS: No Genitourinary: Yes (PAST HX BLADDER CA) Bladder Infection Gastrointestinal: Yes (COLON CA) Gastrointestinal Bleed Musculoskeletal: No Endocrine: Yes Diabetes, Non-Insulin dep HEENT: Yes (GLASSES) Cataract Loss of Vision: Bilateral Hearing Impairment: Denies Cancer: Yes Bladder, Colon Did You Recieve Any Treatments: Yes What Type of Treatment Did You: Chemotherapy, Surgical Intervention Psychosocial: No Integumentary: Yes Psoriasis Blood Disorders: Yes (ANEMIA) Adverse Reaction/Blood Tranf: No (HAS HAD BLOOD WITH NO REACTION) Family Medical History Abdominal aortic aneurysm Cardiovascular disease Cataracts Colon cancer Diabetes mellitus Glaucoma Hypertension Myocardial infarction Respiratory disorder Thyroid disease Visual disorder CAD Over 55 Years Old Physical Exam Vital Signs Vital Signs - First Documented 07/22/20 08:18 Temp 36.4 Pulse 83 Resp 18 B/P (MAP) 106/63 (77) Pulse Ox 99 O2 Delivery Room Air Capillary Refill : Height, Weight, BMI Height: 6'3.00" Weight: 188lbs. 1.6oz. [id number]; 22.01 BMI Method:Estimated General Appearance: No Apparent Distress, WD/WN Neck: Non Tender, Supple Cardiovascular: Regular Rate, Rhythm, No Edema, No Gallop, No JVD Respiratory: Chest Non Tender, Lungs Clear, Normal Breath Sounds Gastrointestinal: Normal Bowel Sounds, Non Tender, Soft Back: Normal Inspection, No CVA Tenderness Extremities: Normal Capillary Refill, Normal Inspection, Non Tender Neurologic/Psychiatric: Alert, Oriented x3, No Motor/Sensory Deficits, Normal Mood/Affect Cranial Nerves: Normal Hearing, Normal Speech Motor/Sensory: No Motor Deficit, No Sensory Deficit Skin: Normal Color, Warm/Dry Progress/Results/Core Measures Results/Orders Lab Results Laboratory Tests Test 07/22/20 08:35 Range/Units White Blood Count 6.0 4.3-11.0 10^3/uL Red Blood Count 3.51 L 4.35-5.85 10^6/uL Hemoglobin 9.4 L 13.3-17.7 G/DL Hematocrit 30 L 40-54 % Mean Corpuscular Volume 84 80-99 FL Mean Corpuscular Hemoglobin 27 25-34 PG Mean Corpuscular Hemoglobin Concent 32 32-36 G/DL Red Cell Distribution Width 15.0 H 10.0-14.5 % Platelet Count 276 130-400 10^3/uL Mean Platelet Volume 9.0 7.4-10.4 FL Immature Granulocyte % (Auto) 1 % Neutrophils (%) (Auto) 51 42-75 % Lymphocytes (%) (Auto) 37 12-44 % Monocytes (%) (Auto) 5 0-12 % Eosinophils (%) (Auto) 5 0-10 % Basophils (%) (Auto) 1 0-10 % Neutrophils # (Auto) 3.1 1.8-7.8 X 10^3 Lymphocytes # (Auto) 2.2 1.0-4.0 X 10^3 Monocytes # (Auto) 0.3 0.0-1.0 X 10^3 Eosinophils # (Auto) 0.3 0.0-0.3 10^3/uL Basophils # (Auto) 0.0 0.0-0.1 10^3/uL Immature Granulocyte # (Auto) 0.0 0.0-0.1 10^3/uL Sodium Level 130 L 135-145 MMOL/L Potassium Level 3.9 3.6-5.0 MMOL/L Chloride Level 94 L 98-107 MMOL/L Carbon Dioxide Level 23 21-32 MMOL/L Anion Gap 13 5-14 MMOL/L Blood Urea Nitrogen 15 7-18 MG/DL Creatinine 1.41 H 0.60-1.30 MG/DL Estimat Glomerular Filtration Rate 49 BUN/Creatinine Ratio 11 Glucose Level 171 H 70-105 MG/DL Calcium Level 8.8 8.5-10.1 MG/DL Corrected Calcium 8.8 8.5-10.1 MG/DL Total Bilirubin 0.2 0.1-1.0 MG/DL Aspartate Amino Transf (AST/SGOT) 21 5-34 U/L Alanine Aminotransferase (ALT/SGPT) 16 0-55 U/L Alkaline Phosphatase 79 40-136 U/L Troponin I < 0.30 <0.30 NG/ML Total Protein 6.9 6.4-8.2 GM/DL Albumin 4.0 3.2-4.5 GM/DL My Orders Orders - JPSTBRIA REDDY DO Ed Iv/Invasive Line Start (07/22/20 08:23) Cbc With Automated Diff (07/22/20 08:23) Comprehensive Metabolic Panel (07/22/20 08:23) Ekg Tracing (07/22/20 08:23) Troponin I Fs (07/22/20 08:23) Ns Iv 1000 Ml (Sodium Chloride 0.9%) (07/22/20 08:30) Vital Signs/I&O 07/22/20 07/22/20 08:18 10:04 Temp 36.4 36.2 Pulse 83 82 Resp 18 16 B/P (MAP) 106/63 (77) 111/69 Pulse Ox 99 98 O2 Delivery Room Air Room Air Transfer of Care Time: 09:30 Care transferred to: Dr Cachorro Tan Departure Impression Primary Impression: Hypotension Qualified Codes: I95.1 - Orthostatic hypotension Additional Impressions: Anemia Qualified Codes: D64.9 - Anemia, unspecified Dehydration Departure-Patient Inst. Referrals: EMLI RITTER MD (PCP/Family) Primary Care Physician BRIA OLIVAS DO Jul 22, 2020 08:38
[2020-07-22 08:44] LABS: HEMATOCRIT 30 % (40-54); HEMOGLOBIN 9.4 G/DL (13.3-17.7); LYMPHOCYTES % (AUTO) 37 % (12-44); MEAN CORPUSCULAR HEMOGLOBIN 27 PG (25-34); MEAN CORPUSCULAR HGB CONC 32 G/DL (32-36); MEAN CORPUSCULAR VOLUME 84 FL (80-99); NEUTROPHILS % (AUTO) 51 % (42-75); PLATELET COUNT 276 10^3/uL (130-400)
[2020-07-22 08:45] LABS: BASOPHILS % (AUTO) 1 % (0-10); EOSINOPHILS # (AUTO) 0.3 10^3/uL (0.0-0.3); EOSINOPHILS % (AUTO) 5 % (0-10); LYMPHOCYTES # (AUTO) 2.2 X 10^3 (1.0-4.0); MONOCYTES # (AUTO) 0.3 X 10^3 (0.0-1.0); MONOCYTES % (AUTO) 5 % (0-12); NEUTROPHILS # (AUTO) 3.1 X 10^3 (1.8-7.8)
[2020-07-22 09:10] LABS: CARBON DIOXIDE 23 MMOL/L (21-32); CHLORIDE 94 MMOL/L (98-107); POTASSIUM 3.9 MMOL/L (3.6-5.0); SODIUM 130 MMOL/L (135-145)
[2020-07-22 09:11] LABS: ALANINE AMINOTRANSFERASE 16 U/L (0-55); ALKALINE PHOSPHATASE 79 U/L (40-136); BILIRUBIN,TOTAL 0.2 MG/DL (0.1-1.0); BUN/CREATININE RATIO 11; CALCIUM 8.8 MG/DL (8.5-10.1); CREATININE SERUM 1.41 MG/DL (0.60-1.30); GFR ESTIMATED 49; GLUCOSE 171 MG/DL (70-105)
[2020-07-22 09:12] LABS: TOTAL PROTEIN 6.9 GM/DL (6.4-8.2)
[2020-07-22 10:04] VITALS: BP 111/69
== END 2020-07-22 10:22 | disposition home or self-care (01) ==
LOC: EDUNIT# 08:17 → ER FS 08:18
DX: I95.1 Orthostatic hypotension (principal); E86.0 Dehydration; D64.9 Anemia, unspecified; E78.00 Pure hypercholesterolemia, unspecified; I25.10 Atherosclerotic heart disease of native coronary artery without angina pectoris; E11.9 Type 2 diabetes mellitus without complications; Z95.5 Presence of coronary angioplasty implant and graft; Z86.711 Personal history of pulmonary embolism; Z85.038 Personal history of other malignant neoplasm of large intestine; Z85.51 Personal history of malignant neoplasm of bladder; Z87.891 Personal history of nicotine dependence; Z88.8 Allergy status to other drugs, medicaments and biological substances; Z79.82 Long term (current) use of aspirin; Z79.51 Long term (current) use of inhaled steroids; Z79.84 Long term (current) use of oral hypoglycemic drugs
CPT/HCPCS: 36415; 80053; 84484; 85025; 93005

== ENCOUNTER 2020-09-08 05:46 | Outpatient (RCR) | payer MEDICARE ==
[~2020-09-08] VITALS: Ht 190.5 cm; Wt 79.5 kg
[~2020-09-08 05:46] MED LIST changes: -CYAN500T64 PO; +CYAN500T8 PO; -HYDR20TA2 PO; +HYDR20TA24 PO
== END 2020-09-10 13:49 | disposition home or self-care (01) ==
LOC: PREOP 05:46
PROVIDERS: ATTEND Surgery
DX: Z01.818 Encounter for other preprocedural examination (principal)

== ENCOUNTER 2020-09-13 10:16 | Day surgery (SDC) | payer MEDICARE ==
[~2020-09-13] VITALS: Ht 160.2 cm; Wt 80.5 kg
[2020-09-13] VITALS (11 sets, daily range): BP systolic 140–179; BP diastolic 80–91
[2020-09-13] MEDS ORDERED: ASPIRIN 81 MG CHEW (CHILDREN'S ASA) PO ONE (10:30)
[2020-09-13] MEDS ORDERED: NS IV 500 ML 500 ML IV STA (10:40)
--- NOTE | 2020-09-13 10:46 | ED Chest Pain ---
General Chief Complaint: Chest Pain Stated Complaint: CHEST PAIN Source: patient, old records History of Present Illness Date Seen by Provider: Sep 13, 2020 Time Seen by Provider: 10:18 Initial Comments 70 yo male presenting with chest pain that started about 30 minutes prior to arrival to ED. He was at [facility] when symptoms started. He was having pain sim ilar to chest pain he has had in the past for heart pain. It felt similar to when he has had to have stents and angioplasty. He had not taken anything for the pain as he was at [facility] and came straight here to the emergency department. He has some shortness of breath but states if feels similar to chronic shortness of breath. He has mild nausea and urge to have BM but those things improved after he had BM on arrival to the ED. He did not take anything for the pain prior to coming to the ED. He has been holding Plavix and Aspirin in anticipation of Colonoscopy this week with Dr. Osorio. Location Injury Occurred: [facility] Timing/Duration: 1/2 hour Severity/Quality: moderate, pressure Location: central Radiation: no radiation Activities at Onset: none Prior CP/Workup: angina, cardiac cath, heart attack, stress test Modifying Factors: improves with defecting ASA po LEAD QUALITY CONTROL TECHNICIAN: No NTG SL LEAD QUALITY CONTROL TECHNICIAN: No Associated Symptoms: No abdominal pain, No back pain, No diaphoresis; dizziness; No edema, No fatigue, No fever/chills, No headache, No heartburn; nausea/vomiting (nausea initially but better after BM); No rash; shortness of breath (chronic and no worse than usual); No swelling/lump in chest, No syncope, No weakness Allergies and Home Medications Allergies Coded Allergies: oxaliplatin (Verified Allergy, Intermediate, 05/14/20) Home Medications Aspirin 81 Mg Tablet.dr, 81 MG PO 1500, (Reported) Atorvastatin Calcium 20 Mg Tablet, 20 MG PO 1800, (Reported) TAKES WITH SUPPER Azelaic Acid 50 Gm Gel..gram., 1 APPLIC TP DAILY, (Reported) Chlorpheniramine Maleate 4 Mg Tablet, 8 MG PO BID PRN for ALLERGY SYMPTOMS, (Reported) Clopidogrel Bisulfate 75 Mg Tablet, 75 MG PO DAILY, (Reported) Cyanocobalamin (Vitamin B-12) 500 Mcg Tablet, 500 MCG PO DAILY, (Reported) Docusate Sodium 100 Mg Capsule, 100 MG PO DAILY PRN for CONSTIPATION-1ST LINE, (Reported) Fluticasone Propionate 9.9 Ml [place].susp, 2 SPRAY NS DAILY PRN for ALLERGIES, (Reported) Gabapentin 300 Mg Capsule, 300 MG PO 1800, (Reported) TAKES WITH SUPPER Glipizide 5 Mg Tablet, 5 MG PO DAILY, (Reported) Hydrocortisone 10 Mg Tablet, 10 MG PO DAILY, (Reported) Hydrocortisone 10 Mg Tablet, 5 MG PO 1200, (Reported) TAKES OF A 10MG TAB Hydrocortisone 10 Mg Tablet, 2.5 MG PO 1500, (Reported) TAKES 1/4 OF A 10MG TAB Levothyroxine Sodium 112 Mcg Tablet, 112 MCG PO DAILY, (Reported) Loteprednol Etabonate 5 Gm Drops.gel, 1 DROP OU 1900, (Reported) Metformin HCl 1,000 Mg Tablet, 1,000 MG PO BID WITH MEALS Hold Metformin for 48 hours Prescribed by: TAVON MELCHOR on 05/16/20 0529 Metronidazole 45 Gm Cream..g., 1 APPLIC TP BID, (Reported) Midodrine HCl 2.5 Mg Tablet, 2.5 MG PO DAILY, (Reported) Pimecrolimus 30 Gm Cream.gm., TP DAILY PRN for PSORIASIS, (Reported) Semaglutide 1 Mg/0.75 Ml Pen.injctr, 1 MG SQ MONDAY, (Reported) [Domperidone] 10 TAB, 10 MG PO QIDACHS, (Reported) RECIEVED MED FROM [facility] Patient Home Medication List Home Medication List Reviewed: Yes Review of Systems Review of Systems Constitutional: No chills, No diaphoresis, No fever EENTM: No Symptoms Reported Respiratory: Shortness of Air (chronic and no worse than baseline) Cardiovascular: See HPI, Chest Pain; Denies Palpitations, Denies Syncope Gastrointestinal: Abdominal Pain (had urge to have a BM while at [facility] when chest pain started and felt light headed and like blood pressure was low) Genitourinary: No Symptoms Reported Musculoskeletal: no symptoms reported Skin: no symptoms reported Psychiatric/Neurological: Denies Numbness, Denies Paresthesia Endocrine: No Symptoms Reported Hematologic/Lymphatic: No Symptoms Reported Past Veeygvo-Jylmxl-Piwlkf Hx Past Med/Social Hx: Reviewed Nursing Past Med/Soc Hx Patient Social History Alcohol Beverage of Choice: Dolores Type Used: Cigarettes Former Smoker, Quit: Sep 10, 1995 2nd Hand Smoke Exposure: No Recent Hopitalizations: No Immunizations Up To Date Tetanus Booster (TDap): Unknown Date of Pneumonia Vaccine: Jul 17, 2016 Date of Influenza Vaccine: May 10, 2020 Seasonal Allergies Seasonal Allergies: No Past Medical History Surgeries: Yes (BLADDER SURGERY-CANCER, COLON RESECTION port) Abdominal, Bowel Surgery, Cardiac, Coronary Stent Respiratory: Yes Pulmonary Embolism Currently Using CPAP: No Currently Using BIPAP: No Cardiac: Yes (STENTS in 1996, ANGIOPLASTY 06/2018) Coronary Artery Disease, High Cholesterol, Hypertension Neurological: No Sexually Transmitted Disease: No HIV/AIDS: No Genitourinary: Yes (PAST HX BLADDER CA) Bladder Infection Gastrointestinal: Yes (COLON CA) Gastrointestinal Bleed Musculoskeletal: No Endocrine: Yes Diabetes, Non-Insulin dep HEENT: Yes (GLASSES) Cataract Loss of Vision: Bilateral Hearing Impairment: Denies Cancer: Yes Bladder, Colon Did You Recieve Any Treatments: Yes What Type of Treatment Did You: Chemotherapy, Surgical Intervention Psychosocial: No Integumentary: Yes Psoriasis Blood Disorders: Yes (ANEMIA) Adverse Reaction/Blood Tranf: No (HAS HAD BLOOD WITH NO REACTION) Family Medical History Abdominal aortic aneurysm Cardiovascular disease Cataracts Colon cancer Diabetes mellitus Glaucoma Hypertension Myocardial infarction Respiratory disorder Thyroid disease Visual disorder CAD Over 55 Years Old Physical Exam Vital Signs Vital Signs - First Documented Capillary Refill : Height, Weight, BMI Height: 6'3.00" Weight: 188lbs. 1.6oz. [id number]; 21.90 BMI Method:Estimated General Appearance: No Apparent Distress, WD/WN HEENT: PERRL/EOMI, Pharynx Normal Neck: Full Range of Motion, Non Tender, Supple Respiratory: Chest Non Tender, Lungs Clear, Normal Breath Sounds, No Accessory Muscle Use, No Respiratory Distress Cardiovascular: Regular Rate, Rhythm, Normal Peripheral Pulses Gastrointestinal: Normal Bowel Sounds, No Pulsatile Mass, Non Tender, Soft Rectal: Deferred Extremity: Normal Capillary Refill, No Pedal Edema Neurologic/Psychiatric: Alert, Oriented x3, No Motor/Sensory Deficits, integration architect II- XII Norm as Tested Skin: Normal Color, Warm/Dry Progress/Results/Core Measures Results/Orders Lab Results Laboratory Tests Test 09/13/20 10:40 09/13/20 11:28 Range/Units White Blood Count 9.1 4.3-11.0 10^3/uL Red Blood Count 3.59 L 4.35-5.85 10^6/uL Hemoglobin 9.3 L 13.3-17.7 G/DL Hematocrit 30 L 40-54 % Mean Corpuscular Volume 83 80-99 FL Mean Corpuscular Hemoglobin 26 25-34 PG Mean Corpuscular Hemoglobin Concent 31 L 32-36 G/DL Red Cell Distribution Width 15.5 H 10.0-14.5 % Platelet Count 339 130-400 10^3/uL Mean Platelet Volume 9.4 7.4-10.4 FL Immature Granulocyte % (Auto) 0 % Neutrophils (%) (Auto) 67 42-75 % Lymphocytes (%) (Auto) 24 12-44 % Monocytes (%) (Auto) 6 0-12 % Eosinophils (%) (Auto) 3 0-10 % Basophils (%) (Auto) 1 0-10 % Neutrophils # (Auto) 6.1 1.8-7.8 X 10^3 Lymphocytes # (Auto) 2.1 1.0-4.0 X 10^3 Monocytes # (Auto) 0.5 0.0-1.0 X 10^3 Eosinophils # (Auto) 0.3 0.0-0.3 10^3/uL Basophils # (Auto) 0.1 0.0-0.1 10^3/uL Immature Granulocyte # (Auto) 0.0 0.0-0.1 10^3/uL Prothrombin Time 12.9 12.2-14.7 SEC INR Comment 0.9 0.8-1.4 Activated Partial Thromboplast Time 22 L 24-35 SEC Sodium Level 131 L 135-145 MMOL/L Potassium Level 4.0 3.6-5.0 MMOL/L Chloride Level 97 L 98-107 MMOL/L Carbon Dioxide Level 22 21-32 MMOL/L Anion Gap 12 5-14 MMOL/L Blood Urea Nitrogen 16 7-18 MG/DL Creatinine 1.19 0.60-1.30 MG/DL Estimat Glomerular Filtration Rate 60 BUN/Creatinine Ratio 13 Glucose Level 166 H 70-105 MG/DL Calcium Level 8.7 8.5-10.1 MG/DL Corrected Calcium 8.9 8.5-10.1 MG/DL Magnesium Level 1.5 L 1.6-2.4 MG/DL Total Bilirubin 0.2 0.1-1.0 MG/DL Aspartate Amino Transf (AST/SGOT) 18 5-34 U/L Alanine Aminotransferase (ALT/SGPT) 15 0-55 U/L Alkaline Phosphatase 74 40-136 U/L Troponin I < 0.30 0.34 *H <0.30 NG/ML Pro-B-Type Natriuretic Peptide 998.6 H <75.0 PG/ML Total Protein 7.0 6.4-8.2 GM/DL Albumin 3.8 3.2-4.5 GM/DL Lipase 40 8-78 U/L My Orders Orders - CARISSA GARY MD Cbc With Automated Diff (09/13/20 10:20) Magnesium (09/13/20 10:20) Chest 1 View Ap/Pa Only (09/13/20 10:20) Ekg Tracing (09/13/20 10:20) Comprehensive Metabolic Panel (09/13/20 10:20) Protime With Inr (09/13/20 10:20) Partial Thromboplastin Time (09/13/20 10:20) O2 (09/13/20 10:20) Monitor-Rhythm Ecg Trace Only (09/13/20 10:20) Aspirin Chewable Tablet (Baby Aspirin Ch (09/13/20 10:30) Ed Iv/Invasive Line Start (09/13/20 10:20) Lipase (09/13/20 10:20) Troponin I Fs (09/13/20 10:20) Probnp Fs (09/13/20 10:20) Ns Iv 500 Ml (Sodium Chloride 0.9%) (09/13/20 10:40) Troponin I Fs (09/13/20 12:30) Medications Given in ED Current Medications Medications Dose Ordered Sig/Rabia Route Start Time Stop Time Status Last Admin Dose Admin Aspirin 324 mg ONCE ONCE PO 09/13/20 10:30 09/13/20 10:31 DC 09/13/20 10:38 324 MG Vital Signs/I&O 09/13/20 09/13/20 10:20 10:20 Temp 36.1 Pulse 73 Resp 20 B/P (MAP) 106/69 (81) Pulse Ox 100 O2 Delivery Room Air Room Air Progress Progress Note #1: Progress Note Check labs as well as electrocardiogram and chest x-ray. Give 324 mg of aspirin since patient was having chest pain and relates that it feels similar to when he has had cardiac pain and had to have stents in the past. He also relates joao t the pain came on at [facility] while he felt like he needed to have a bowel movement. He had to use the bathroom as soon as he got to the emergency department. And was having improving pain ever since he used the restroom on arrival to the ED. Placed on cardiac telemetry monitoring since he had a history of cardiac disease with DC and previous stents and angioplasty. Initially he is sinus rhythm without ST elevation or ectopy. His electrocardiogram shows normal sinus rhythm without acute ST elevation and he has prolonged MD interval for first-degree AV block. His initial blood pressure was slightly low at 106 systolic but quickly came up without any intervention. A 500 mL normal saline bolus was ordered. As he was having any pain by the end of obtaining his history and physical no nitroglycerin or pain medicine was ordered. Simply the aspirin and monitoring. Progress Note #2: Time: 11:18 Progress Note Chest x-ray does not show any acute process. His electrocardiogram is not showing any acute ST elevation. The cardiac telemetry monitoring continues to show sinus rhythm with a heart rate in the 80s. His labs did not show any acute significant abnormality. His chronic anemia is stable with a hemoglobin of 9.3. His cardiac enzymes are 0 with a troponin less than 0.3. He has no acute significant abnormality on his chemistry panel. He does have mild hypomagnesemia with a magnesium of 1.5. Since his pain came on 30 minutes prior to arrival in the emergency department so at approximately 9:30 AM we will check with the patient about a repeat troponin around 1230 so a 2- hour clair would be helpful to ensure that he is not rising on his troponin. Progress Note #3: Time: 12:57 Progress Note repeat Troponin came back slightly elevated at 0.34. D/w Dr. Melchor and he recommends admit for serial enzymes and monitoring as well as resume aspirin 81 mg daily with postponing of the colonoscopy. 1259 d/w Dr. Dempsey for [facility] and she was familiar with pt as well and accepted admit. d/w nursing admissions supervisor to obtain [facility] bed as pt is not on any drips and is medically stable without pain. Initial ECG Impression Date: Sep 13, 2020 Initial ECG Impression Time: 10:30 Initial ECG Rate: 78 Initial ECG Rhythm: Normal Sinus Initial ECG Comparisson: Unchanged Comment Normal sinus rhythm with a heart rate of 78 bpm. First-degree AV block with a MD interval of 259 ms. QT interval 364 ms with a QTc interval 415 ms. There is no acute ST elevation. Appears similar to prior tracings in the system with old anteroseptal infarct changes with Q waves in V1 and V2. Diagnostic Imaging Diagonstic Imaging: Xray Plain Films/CT/US/NM/MRI: chest Comments [facility] [place], [place] NAME: HETAL HERNANDEZ [facility] REC#: [id number] PT STATUS: REG ER : 1950 PHYSICIAN: CARISSA GARY MD ADMIT DATE: 09/13/20/ER FS Signed Date of Exam:09/13/20 CHEST 1 VIEW AP/PA ONLY INDICATION: Chest pain EXAMINATION: Chest from 09/13/2020 COMPARISON: 05/14/2020 FINDINGS: Single view chest There is a chest port on the right which is stable from previous. Heart and pulmonary vasculature normal. Lungs and pleural spaces clear. IMPRESSION: 1. No acute process. Dictated by: Dictated on workstation # [id number] Dict: 09/13/20 1048 Trans: 09/13/20 1110 [facility] [id number] Interpreted by: LIZETH PLAZA MD Electronically signed by: LIZETH PLAZA MD 09/13/20 1110 Departure Communication (Admissions) Time/Spoke to Admitting Phy: 12:59 d/w Dr. Dempsey on for [facility] since pt follows with Dr. Ritter and will admit for serial enzymes and chest pain protocol order set. He is pain free currently and will restart aspirin [address] Melchor and postpone the colonoscopy. Time/Spoke to Consulting Phy: 12:57 d/w Dr. Melchor and he is very familiar with pt and requests pt be admitted and have baby aspirin restarted daily. No lovenox needed currently. Chest pain order set. Follow along with Dr. Dempsey for [facility] Impression Primary Impression: Chest pain Qualified Codes: R07.9 - Chest pain, unspecified Disposition: 30 STILL A PATIENT Condition: Stable Admissions Decision to Admit Reason: Admit from ER (General) Decision to Admit/Date: Sep 13, 2020 Time/Decision to Admit Time: 12:59 Departure-Patient Inst. Referrals: EMIL RITTER MD (PCP/Family) Primary Care Physician CARISSA GARY MD Sep 13, 2020 10:46
[2020-09-13 10:53] LABS: HEMOGLOBIN 9.3 G/DL (13.3-17.7); MEAN CORPUSCULAR HEMOGLOBIN 26 PG (25-34); WHITE BLOOD COUNT 9.1 10^3/uL (4.3-11.0)
--- NOTE | 2020-09-13 10:53 | Diagnostic Imaging Report ---
INDICATION: Chest pain EXAMINATION: Chest from 09/13/2020 COMPARISON: 05/14/2020 FINDINGS: Single view chest There is a chest port on the right which is stable from previous. Heart and pulmonary vasculature normal. Lungs and pleural spaces clear. IMPRESSION: 1. No acute process. Dictated by: Dictated on workstation # [id number]
[2020-09-13 10:54] LABS: BASOPHILS # (AUTO) 0.1 10^3/uL (0.0-0.1); BASOPHILS % (AUTO) 1 % (0-10); EOSINOPHILS # (AUTO) 0.3 10^3/uL (0.0-0.3); EOSINOPHILS % (AUTO) 3 % (0-10); HEMATOCRIT 30 % (40-54); LYMPHOCYTES # (AUTO) 2.1 X 10^3 (1.0-4.0); LYMPHOCYTES % (AUTO) 24 % (12-44); MEAN CORPUSCULAR HGB CONC 31 G/DL (32-36); MEAN CORPUSCULAR VOLUME 83 FL (80-99); MEAN PLATELET VOLUME 9.4 FL (7.4-10.4); MONOCYTES # (AUTO) 0.5 X 10^3 (0.0-1.0); MONOCYTES % (AUTO) 6 % (0-12); NEUTROPHILS # (AUTO) 6.1 X 10^3 (1.8-7.8); NEUTROPHILS % (AUTO) 67 % (42-75); PLATELET COUNT 339 10^3/uL (130-400)
[2020-09-13 10:59] LABS: INR 0.9 (0.8-1.4); PROTHROMBIN TIME PATIENT 12.9 SEC (12.2-14.7)
[2020-09-13 11:09] LABS: ALBUMIN 3.8 GM/DL (3.2-4.5); BILIRUBIN,TOTAL 0.2 MG/DL (0.1-1.0); CALCIUM 8.7 MG/DL (8.5-10.1); CREATININE SERUM 1.19 MG/DL (0.60-1.30); MAGNESIUM 1.5 MG/DL (1.6-2.4)
[2020-09-13] MEDS ORDERED: NITROGLYCERIN 0.4 MG SL TABS BTL 25'S SL PRN (14:45)
[2020-09-13] MEDS ORDERED: ONDANSETRON 4 MG/2 ML (SDV) Z0FRAN IVP PRN (14:45)
[2020-09-13] MEDS: NS IV 1000 ML 1,000 ML IV SCH (14:57)
[2020-09-13] MEDS ORDERED: PATIENT MAY USE OWN MEDS, ALL MC SCH (16:15)
[2020-09-13] MEDS ORDERED: CALCIUM CARBONATE 500 MG (TUMS) TAB.CHEW PO PRN (16:15)
[2020-09-13] MEDS ORDERED: CHLORPHENIRAMINE 4 MG TAB (NON-FORMULARY) PO PRN (16:15)
[2020-09-13] MEDS ORDERED: HYDROcodone/APAP 5 MG/325 MG (LORTAB) TAB PO PRN (16:15)
[2020-09-13] MEDS ORDERED: ALPRAZolam 0.25 MG (XANAX) TAB PO PRN (16:15)
[2020-09-13] MEDS ORDERED: ACETAMINOPHEN 500 MG TAB (TYLENOL) PO PRN (16:15)
[2020-09-13] MEDS ORDERED: PIMECROLIMUS 1% TP PRN (16:15)
[2020-09-13] MEDS ORDERED: diphenhydrAMINE 25 MG TAB (BENADRYL) PO PRN (16:15)
[2020-09-13] MEDS ORDERED: MELATONIN 3 MG TABLET PO PRN (16:15)
[2020-09-13] MEDS ORDERED: ENOXAPARIN 40 MG/0.4 ML (LOVENOX) SYR SC SCH (16:15)
[2020-09-13] MEDS ORDERED: LOPERAMIDE 2 MG (IMODIUM) TABLET PO PRN (16:15)
[2020-09-13] MEDS ORDERED: DOCUSATE SODIUM 100 MG (COLACE) CAP PO PRN ×2 (16:15)
[2020-09-13] MEDS ORDERED: FLUTICASONE NASAL SPRAY (FLONASE) 16 GM BTL NS PRN (16:30)
[2020-09-13] MEDS ORDERED: DOMPERIDONE 10 MG PO SCH (17:00)
[2020-09-13] MEDS ORDERED: GABAPENTIN 300 MG (NEURONTIN) CAP PO SCH (18:00)
[2020-09-13] MEDS ORDERED: CLOPIDOGREL 75 MG (PLAVIX) TABLET ONE (18:41)
[2020-09-13] MEDS ORDERED: CLOPIDOGREL 300 MG (PLAVIX) TABLET PO ONE (18:45)
[2020-09-13] MEDS ORDERED: ENOXAPARIN 40 MG/0.4 ML (LOVENOX) SYR SC ONE (19:00)
[2020-09-13] MEDS ORDERED: LOTEPREDNOL ETABONATE OU SCH (19:00)
[2020-09-13] MEDS: SENNA W/DOCUSATE (SENOKOT S) TABLET PO SCH (20:37)
[2020-09-13] MEDS: polyethylene glycoL POWDER 17 GM (MIRALAX) PACK PO SCH (20:37)
[2020-09-13] MEDS ORDERED: NON-FORMULARY MEDICATION 1 EA EA (Metronidazole 1 APPLIC) TP SCH (21:00)
[2020-09-14] VITALS (11 sets, daily range): BP systolic 151–178; BP diastolic 77–93
[2020-09-14] MEDS: NS IV 1000 ML 1,000 ML IV SCH ×2 (04:16→15:38)
[2020-09-14 06:36] LABS: BASOPHILS % (AUTO) 0 % (0-10); EOSINOPHILS # (AUTO) 0.3 10^3/uL (0.0-0.3); EOSINOPHILS % (AUTO) 5 % (0-10); HEMATOCRIT 27 % (40-54); HEMOGLOBIN 8.3 g/dL (13.3-17.7); LYMPHOCYTES # (AUTO) 2.1 10^3/uL (1.0-4.0); LYMPHOCYTES % (AUTO) 30 % (12-44); MEAN CORPUSCULAR HEMOGLOBIN 26 pg (25-34); MEAN CORPUSCULAR HGB CONC 31 g/dL (32-36); MEAN CORPUSCULAR VOLUME 84 fL (80-99); MEAN PLATELET VOLUME 9.4 fL (9.0-12.2); MONOCYTES # (AUTO) 0.5 10^3/uL (0.0-1.0); MONOCYTES % (AUTO) 7 % (0-12); NEUTROPHILS # (AUTO) 4.2 10^3/uL (1.8-7.8); NEUTROPHILS % (AUTO) 58 % (42-75); PLATELET COUNT 293 10^3/uL (130-400); WHITE BLOOD COUNT 7.2 10^3/uL (4.3-11.0)
[2020-09-14 06:57] LABS: CHLORIDE 101 MMOL/L (98-107); POTASSIUM 4.3 MMOL/L (3.6-5.0); SODIUM 134 MMOL/L (135-145)
[2020-09-14 06:58] LABS: ALBUMIN 3.6 GM/DL (3.2-4.5)
[2020-09-14 06:59] LABS: CALCIUM 8.5 MG/DL (8.5-10.1); TRIGLYCERIDES 94 MG/DL (<150); VLDL CHOLESTEROL 19 MG/DL (5-40)
[2020-09-14 07:00] LABS: GLUCOSE 112 MG/DL (70-105); TOTAL PROTEIN 6.7 GM/DL (6.4-8.2)
[2020-09-14] MEDS ORDERED: HYDROCORTISONE 20 MG (CORTEF) TAB PO SCH ×2 (07:00→12:00)
[2020-09-14] MEDS ORDERED: CYANOCOBALAMIN 1,000 MCG (VITAMIN B-12) TABLET PO SCH (07:00)
[2020-09-14 07:01] LABS: CARBON DIOXIDE 22 MMOL/L (21-32)
[2020-09-14 07:02] LABS: BILIRUBIN,TOTAL 0.2 MG/DL (0.1-1.0)
[2020-09-14 07:04] LABS: ALKALINE PHOSPHATASE 66 U/L (40-136); CREATININE SERUM 0.95 MG/DL (0.60-1.30); GFR ESTIMATED > 60
[2020-09-14 07:05] LABS: BUN/CREATININE RATIO 13; CHOLESTEROL 118 MG/DL (< 200)
[2020-09-14 07:06] LABS: HDL CHOLESTEROL 35 MG/DL (40-60)
[2020-09-14 07:07] LABS: ALANINE AMINOTRANSFERASE 18 U/L (0-55)
[2020-09-14] MEDS ORDERED: HEParin (CATH LAB) 2,000 ML IV ONE (08:26)
[2020-09-14] MEDS ORDERED: LIDOCAINE 1% INJ 20 ML 20 ML VIAL ONE (08:26)
[2020-09-14] MEDS ORDERED: ASPIRIN E.C. 81 MG (ECOTRIN) TAB PO SCH ×2 (09:00→15:00)
[2020-09-14] MEDS ORDERED: glipiZIDE 5 MG (GLUCOTROL) TAB PO SCH (09:00)
[2020-09-14] MEDS ORDERED: CLOPIDOGREL 75 MG (PLAVIX) TABLET PO SCH (09:00)
[2020-09-14] MEDS ORDERED: LEVOTHYROXINE 112 MCG (LEVOTHROID) TAB PO SCH (09:00)
[2020-09-14] MEDS ORDERED: MIDODRINE HCL 2.5 MG PO SCH (09:00)
[2020-09-14] MEDS ORDERED: fentaNYL INJECTION 100 MCG/2 ML AMP ONE (09:23)
[2020-09-14] MEDS ORDERED: MIDAZOLAM 5 MG/5 ML (VERSED) VIAL ONE (09:23)
[2020-09-14] MEDS ORDERED: NS IV 1000 ML 0 ML ONE (09:24)
--- NOTE | 2020-09-14 09:50 | Consultation-Cardiology ---
HPI-Cardiology Cardiology Consultation Date of Consultation 09/14/20 Date of Admission Time Seen by Provider: 09:00 Indication: chest pain HPI 70 years old gentleman with extensive cardiac history, multiple interventions in the past. Has stopped aspirin and Plavix in preparation for colonoscopy. Started to have chest pain on Monday, dull in nature in the retrosternal area associated with lightheadedness and shortness of breath. The pain continued to wax and wane until he went to the emergency room. He was given morphine and nitroglycerin. He has been feeling better since that time, no further episodes of chest pain, no shortness of breath. No palpitation, troponin has been increasing steadily since admission. Aspirin and Plavix were restarted yester day Home Medications & Allergies Allergies: Coded Allergies: oxaliplatin (Verified Allergy, Intermediate, 05/14/20) Home Medication List Reviewed: Yes QTN-Vcydwr-Yafhtz Hx Patient Social History Marital Status: Employed/Student: employed Recreational Drug Use: No Smoking Status: Former Smoker Type Used: Cigarettes 2nd Hand Smoke Exposure: No Recent Hopitalizations: No Have you traveled recently?: No Alcohol Use?: No Immunizations Up To Date Tetanus Booster (TDap): Unknown Date of Pneumonia Vaccine: Jul 17, 2016 Date of Influenza Vaccine: May 13, 2020 Past Medical History Discussed below Family Medical History Significant Family History: CAD Over 55 Years Old Family History: Abdominal aortic aneurysm Cardiovascular disease Cataracts Colon cancer Diabetes mellitus Glaucoma Hypertension Myocardial infarction Respiratory disorder Thyroid disease Visual disorder Review of Systems-General Review of Systems Constitutional: see HPI; No chills, No diaphoresis, No fever EENTM: see HPI, no symptoms reported Respiratory: see HPI; No cough; dyspnea on exertion; No hemoptysis, No orthopnea, No phlegm, No short of breath, No stridor, No wheezing, No other Cardiovascular: see HPI, chest pain; No edema, No Hx of Intervention, No palpit ations, No syncope, No vascular heart diseas, No other Gastrointestinal: no symptoms reported, see HPI Genitourinary: no symptoms reported, see HPI Musculoskeletal: no symptoms reported, see HPI Skin: no symptoms reported, see HPI Psychiatric/Neurological: See HPI; Denies Numbness, Denies Paresthesia Reviewed Test Results Reviewed Test Results Lab Laboratory Tests Test 09/13/20 10:40 09/13/20 11:28 09/13/20 17:53 09/14/20 05:46 Range/Units White Blood Count 9.1 7.2 4.3-11.0 10^3/uL Red Blood Count 3.59 L 3.17 L 4.30-5.52 10^6/uL Hemoglobin 9.3 L 8.3 L 13.3-17.7 g/dL Hematocrit 30 L 27 L 40-54 % Mean Corpuscular Volume 83 84 80-99 fL Mean Corpuscular Hemoglobin 26 26 25-34 pg Mean Corpuscular Hemoglobin Concent 31 L 31 L 32-36 g/dL Red Cell Distribution Width 15.5 H 15.4 H 10.0-14.5 % Platelet Count 339 293 130-400 10^3/uL Mean Platelet Volume 9.4 9.4 9.0-12.2 fL Immature Granulocyte % (Auto) 0 0 % Neutrophils (%) (Auto) 67 58 42-75 % Lymphocytes (%) (Auto) 24 30 12-44 % Monocytes (%) (Auto) 6 7 0-12 % Eosinophils (%) (Auto) 3 5 0-10 % Basophils (%) (Auto) 1 0 0-10 % Neutrophils # (Auto) 6.1 4.2 1.8-7.8 10^3/uL Lymphocytes # (Auto) 2.1 2.1 1.0-4.0 10^3/uL Monocytes # (Auto) 0.5 0.5 0.0-1.0 10^3/uL Eosinophils # (Auto) 0.3 0.3 0.0-0.3 10^3/uL Basophils # (Auto) 0.1 0.0 0.0-0.1 10^3/uL Immature Granulocyte # (Auto) 0.0 0.0 0.0-0.1 10^3/uL Prothrombin Time 12.9 12.2-14.7 SEC INR Comment 0.9 0.8-1.4 Activated Partial Thromboplast Time 22 L 24-35 SEC Sodium Level 131 L 134 L 135-145 MMOL/L Potassium Level 4.0 4.3 3.6-5.0 MMOL/L Chloride Level 97 L 101 98-107 MMOL/L Carbon Dioxide Level 22 22 21-32 MMOL/L Anion Gap 12 11 5-14 MMOL/L Blood Urea Nitrogen 16 12 7-18 MG/DL Creatinine 1.19 0.95 0.60-1.30 MG/DL Estimat Glomerular Filtration Rate 60 > 60 BUN/Creatinine Ratio 13 13 Glucose Level 166 H 112 H 70-105 MG/DL Calcium Level 8.7 8.5 8.5-10.1 MG/DL Corrected Calcium 8.9 8.8 8.5-10.1 MG/DL Magnesium Level 1.5 L 1.6-2.4 MG/DL Total Bilirubin 0.2 0.2 0.1-1.0 MG/DL Aspartate Amino Transf (AST/SGOT) 18 22 5-34 U/L Alanine Aminotransferase (ALT/SGPT) 15 18 0-55 U/L Alkaline Phosphatase 74 66 40-136 U/L Troponin I < 0.30 0.34 *H 1.178 *H <0.028 NG/ML Pro-B-Type Natriuretic Peptide 998.6 H <75.0 PG/ML Total Protein 7.0 6.7 6.4-8.2 GM/DL Albumin 3.8 3.6 3.2-4.5 GM/DL Lipase 40 8-78 U/L Triglycerides Level 94 <150 MG/DL Cholesterol Level 118 < 200 MG/DL LDL Cholesterol Direct 72 1-129 MG/DL VLDL Cholesterol 19 5-40 MG/DL HDL Cholesterol 35 L 40-60 MG/DL Physical Exam Physical Exam Vital Signs Vital Signs - First Documented Capillary Refill : Less Than 3 Seconds Height, Weight, BMI Height: 6'3.00" Weight: 188lbs. 1.6oz. 85.323328ev; 31.36 BMI Method:Estimated General Appearance: No Apparent Distress, WD/WN Eyes: Bilateral Eye Normal Inspection, Bilateral Eye PERRL, Bilateral Eye EOMI HEENT: PERRL/EOMI, Pharynx Normal Neck: Full Range of Motion, Non Tender, Supple Respiratory: Chest Non Tender, Lungs Clear, Normal Breath Sounds, No Accessory Muscle Use, No Respiratory Distress Cardiovascular: Regular Rate, Rhythm, Normal Peripheral Pulses Gastrointestinal: Normal Bowel Sounds, No Pulsatile Mass, Non Tender, Soft Rectal: Deferred Back: Normal Inspection, No CVA Tenderness, No Vertebral Tenderness Extremity: Normal Capillary Refill, No Pedal Edema Neurologic/Psychiatric: Alert, Oriented x3, No Motor/Sensory Deficits, hotbed transfer operator II- XII Norm as Tested Skin: Normal Color, Warm/Dry Lymphatic: No Adenopathy A/P-Cardiology Admission Diagnosis Non-ST elevation myocardial infarction Coronary artery disease Hypertension Hyperlipidemia Assessment/Plan Non-ST elevation myocardial infarction, restarted the aspirin and Plavix, planning to proceed with cardiac catheterization possible PTCA. Coronary artery disease, history of non-ST elevation myocardial infarction with 2 stents placed in the late 90 in the LAD, cardiac catheterization June 2018 showed severe instent restenosis in the proximal LAD with balloon angioplasty with multiple inflation at high pressure using 2.5 x 15 mm had moderate to severe LAD stenosis distally treated medically. Had severe proximal circumflex artery stenosis with balloon angioplasty and excellent results. Repeat cardiac catheterization November 2018 showed restenosis in the LAD, status post deployment of a long Agnieszka stent 2.75 x 33 mm expanded to 2.9 with excellent results. The artery is heavily calcified. Repeat cardiac catheterization was done in May 2020 showing severe instent restenosis in the mid LAD, successful balloon angioplasty using emerge 2.75 x 20 mm. History of syncope with orthostatic hypotension maintain on Medrin and steroid and feeling better. Continue to monitor Hypertension, labile blood pressure, episodes of severe hypertension then hypotension and syncope. Unable to tolerate any blood pressure medications in the past. History of anemia secondary to colon cancer, had significant improvement after hemicolectomy following with Dr. Del Rosario, patient was scheduled for colonoscopy with Dr. Osoiro on September 15, 2020 and he was off aspirin and Plavix, I restarted both medication and contacted Dr. Osorio to reschedule his procedure History of C. difficile colitis with extensive diarrhea and dehydration, recovered fully. Doing well. History of DVT and one episode of PE in the past has been off Coumadin Diabetes mellitus, followed and managed by primary care physician next Hyperlipidemia maintained on statin Mild bilateral carotid stenosis ultrasound was done in March 2020. Continue to monitor History of bladder cancer. Continue to monitor next Hypothyroidism followed and managed by primary care physician Clinical Quality Measures AMI/AHF: ASA po Prior to arrival: TAVON Rodriguez MD Sep 14, 2020 09:50
[2020-09-14] MEDS ORDERED: NS IV 1000 ML 1,000 ML IV SCH (10:15)
[2020-09-14] MEDS ORDERED: PATIENT MAY USE OWN MEDS, ALL PO SCH (10:15)
--- NOTE | 2020-09-14 10:18 | Cardiac Cath Report ---
Cardiac Cath Report Physician (s)/Crap Shooter (s) Physician TAVON SUGGS MD Pre-Procedure Diagnosis Pre-Procedure Diagnosis: coronary artery disease Post-Procedure Note Procedure Start Date: Sep 14, 2020 Name of Procedure: Left heart catheterization Findings/Procedure Note PROCEDURE NOTE: 70 years old gentleman with extensive history of coronary artery disease, admitted with chest pain, had elevated troponin, non-ST elevation myocardial infarction, decision to proceed with left heart catheterization possible angioplasty. After explaining the procedure to the patient, all pros and cons were explained, all questions were answered. The patient signed the consent and then he was placed on the cardiac catheterization laboratory. Groin was prepped SL fashion local anesthesia was used. Sheath placed in the artery. Arlen right and left catheter were used to access the coronary system. Arlen right was advanced to the left ventricular cavity, pressure was measured no left ventriculogram was done At the end of the procedure the sheath was removed. Closure device was deployed FINDINGS: Hemodynamics LV 162/11, end-diastolic pressure of 11 Aorta 166/73 mean of 106 ANATOMY: Left Main is free of obstructive disease Left Anterior Descending is calcified with mild to moderate disease at multiple segment, nonobstructive disease, stent is patent, has mild in-stent restenosis that has not changed compared to the study of April 2020, diagonal arteries are small with mild disease Left Circumflex is moderate in size, there is no restenosis in the proximal circumflex since the intervention in 2018 with balloon angioplasty Right Coronory Artery is heavily calcified artery, dominant artery with no significant obstructive disease, the right PDA has severe stenosis distally, it is less than 1 mm in size LV Gram was not done, pressure was measured CONCLUSION: 1. Severe stenosis at the distal right PDA that is very small artery less than 1 mm in diameter, heavily calcified right coronary artery with mild disease nonobstructive disease 2. Patent stent in the mid LAD, mild to moderate disease diffusely nonobstructive disease 3. Mild disease in the circumflex artery nonobstructive disease DISCUSSION AND RECOMMENDATION: Medical therapy is recommended no intervention is warranted Anesthesia Type: Conscious Sedation Estimated blood loss (mL): 20 ml Contrast Amount: 37 ml Total Radiation Dose: 176 mGy Post-Procedure Diagnosis Post-operative diagnosis: Non-ST elevation myocardial infarction Coronary artery disease Hypertension Hyperlipidemia TAVON SUGGS MD Sep 14, 2020 10:18 am
--- NOTE | 2020-09-14 11:23 | Short Stay Summary ---
HPI History of Present Illness: Pt to ER due to chest pain. At time of my exam, he is drowsy from just returning from cardiac catheterization done due to increased troponin. He was holding blood thinners for planned scopes due to persistent anemia. History mostly from . Source: family Exam Limitations: clinical condition Date seen by provider: Sep 14, 2020 Time Seen by Provider: 10:40 Attending Physician Rafia Westbrook MD PCP Emil Farmer MD Consult Date of Admission Sep 13, 2020 at 14:30 Home Medications Home Medications Reviewed patient Home Medication Reconciliation performed by pharmacy medication reconciliations flight test data acquisition technician and/or nursing. Patients Allergies have been reviewed. Allergies Coded Allergies: oxaliplatin (Verified Allergy, Intermediate, 05/14/20) OMQ-Oapexs-Yxzzqi Hx Patient Social History Marrital Status: Employed/Student: employed Smoking Status: Former Smoker 2nd Hand Smoke Exposure: No Recent Hopitalizations: No Alcohol Use?: No Have you traveled recently?: No Immunizations Up To Date Tetanus Booster (TDap): Unknown Date of Pneumonia Vaccine: Jul 17, 2016 Date of Influenza Vaccine: May 13, 2020 Past Medical History PMHx: Coronary artery disease Hypothyroidism Degernative disc disease History of PE and DVT Bladder cancer Osteoarthritis Hyperlipidemia Diabetes type II Adrenal insufficiency Colon Cancer SurgHx: Colon resection Angioplasty Bladder cancer surgeries Vasectomy Right eye cataract Family Medical History Significant Family History: CAD Over 55 Years Old Family History: Abdominal aortic aneurysm Cardiovascular disease Cataracts Colon cancer Diabetes mellitus Glaucoma Hypertension Myocardial infarction Respiratory disorder Thyroid disease Visual disorder Review of Systems ([facility]) Constitutional: other (unable to obtain due to patient drowsiness) Reviewed Test Results Reviewed Test Results Lab Laboratory Tests Test 09/13/20 10:40 09/13/20 11:28 09/13/20 17:53 09/14/20 05:46 Range/Units White Blood Count 9.1 7.2 4.3-11.0 10^3/uL Red Blood Count 3.59 L 3.17 L 4.30-5.52 10^6/uL Hemoglobin 9.3 L 8.3 L 13.3-17.7 g/dL Hematocrit 30 L 27 L 40-54 % Mean Corpuscular Volume 83 84 80-99 fL Mean Corpuscular Hemoglobin 26 26 25-34 pg Mean Corpuscular Hemoglobin Concent 31 L 31 L 32-36 g/dL Red Cell Distribution Width 15.5 H 15.4 H 10.0-14.5 % Platelet Count 339 293 130-400 10^3/uL Mean Platelet Volume 9.4 9.4 9.0-12.2 fL Immature Granulocyte % (Auto) 0 0 % Neutrophils (%) (Auto) 67 58 42-75 % Lymphocytes (%) (Auto) 24 30 12-44 % Monocytes (%) (Auto) 6 7 0-12 % Eosinophils (%) (Auto) 3 5 0-10 % Basophils (%) (Auto) 1 0 0-10 % Neutrophils # (Auto) 6.1 4.2 1.8-7.8 10^3/uL Lymphocytes # (Auto) 2.1 2.1 1.0-4.0 10^3/uL Monocytes # (Auto) 0.5 0.5 0.0-1.0 10^3/uL Eosinophils # (Auto) 0.3 0.3 0.0-0.3 10^3/uL Basophils # (Auto) 0.1 0.0 0.0-0.1 10^3/uL Immature Granulocyte # (Auto) 0.0 0.0 0.0-0.1 10^3/uL Prothrombin Time 12.9 12.2-14.7 SEC INR Comment 0.9 0.8-1.4 Activated Partial Thromboplast Time 22 L 24-35 SEC Sodium Level 131 L 134 L 135-145 MMOL/L Potassium Level 4.0 4.3 3.6-5.0 MMOL/L Chloride Level 97 L 101 98-107 MMOL/L Carbon Dioxide Level 22 22 21-32 MMOL/L Anion Gap 12 11 5-14 MMOL/L Blood Urea Nitrogen 16 12 7-18 MG/DL Creatinine 1.19 0.95 0.60-1.30 MG/DL Estimat Glomerular Filtration Rate 60 > 60 BUN/Creatinine Ratio 13 13 Glucose Level 166 H 112 H 70-105 MG/DL Calcium Level 8.7 8.5 8.5-10.1 MG/DL Corrected Calcium 8.9 8.8 8.5-10.1 MG/DL Magnesium Level 1.5 L 1.6-2.4 MG/DL Total Bilirubin 0.2 0.2 0.1-1.0 MG/DL Aspartate Amino Transf (AST/SGOT) 18 22 5-34 U/L Alanine Aminotransferase (ALT/SGPT) 15 18 0-55 U/L Alkaline Phosphatase 74 66 40-136 U/L Troponin I < 0.30 0.34 *H 1.178 *H <0.028 NG/ML Pro-B-Type Natriuretic Peptide 998.6 H <75.0 PG/ML Total Protein 7.0 6.7 6.4-8.2 GM/DL Albumin 3.8 3.6 3.2-4.5 GM/DL Lipase 40 8-78 U/L Triglycerides Level 94 <150 MG/DL Cholesterol Level 118 < 200 MG/DL LDL Cholesterol Direct 72 1-129 MG/DL VLDL Cholesterol 19 5-40 MG/DL HDL Cholesterol 35 L 40-60 MG/DL Radiology CXR: no acute process Physical Exam-([facility]) Physical Exam Vital Signs VS - Last 72 Hours, by Label 09/13/20 09/13/20 09/13/20 09/13/20 10:20 10:20 13:35 14:35 Temp 36.1 36.1 36.22082 Pulse 73 86 83 Resp 20 17 20 B/P (MAP) 106/69 (81) 155/77 (81) 140/81 Pulse Ox 100 100 99 O2 Delivery Room Air Room Air Room Air 09/13/20 09/13/20 09/13/20 09/13/20 14:50 14:50 15:00 15:05 Temp 36.94969 36.52091 36.31101 Pulse 79 79 81 Resp 20 20 20 B/P (MAP) 179/84 179/84 172/91 Pulse Ox 100 100 98 99 O2 Delivery Room Air 09/13/20 09/13/20 09/13/20 09/13/20 15:20 15:32 16:20 17:20 Temp 35.47136 36.71751 36.42729 Pulse 79 74 80 84 Resp 20 18 19 B/P (MAP) 176/88 169/86 178/89 Pulse Ox 99 99 98 09/13/20 09/13/20 09/13/20 09/13/20 18:20 19:00 19:20 20:00 Temp 36.75606 36.02507 35.3 Pulse 91 114 85 91 Resp 20 20 20 B/P (MAP) 177/84 170/85 149/80 (103) Pulse Ox 99 95 95 09/13/20 09/14/20 09/14/20 09/14/20 20:30 00:07 01:00 03:38 Temp 36.2 36.2 Pulse 91 82 88 Resp 18 18 B/P (MAP) 167/85 (112) 159/77 (104) Pulse Ox 97 97 O2 Delivery Room Air Room Air Room Air 09/14/20 09/14/20 09/14/20 09/14/20 06:28 08:00 10:29 10:30 Temp 36.2 Pulse 104 89 84 82 Resp 20 7 B/P (MAP) 152/77 (102) 151/88 (109) Pulse Ox 96 96 O2 Delivery Room Air Room Air 09/14/20 09/14/20 10:45 11:00 Pulse 82 84 Resp 7 14 B/P (MAP) 158/88 (111) 152/93 (112) Pulse Ox 96 98 O2 Delivery Room Air Room Air Capillary Refill : Less Than 3 Seconds General Appearance: WD/WN, no apparent distress Respiratory: lungs clear, normal breath sounds Cardiovascular: regular rate, rhythm, no murmur Extremities: no pedal edema Neurologic/Psychiatric: other (drowsy but answers questions appropriately) Skin: normal color, warm/dry Short Stay Diagnosis Discharge Diagnosis-Short Stay Admission Diagnosis Chest pain Final Discharge Diagnosis NSTEMI Small vessel coronary artery disease, patent coronary artery stent Conclusion Plan Aspirin and plavix restarted, and goal would be to continue for a month after the NSTEMI if possible. Ranexa started for chest pain since he cannot tolerate nitro due to hypotension. Echocardiogram obtained before d/c, results not yet available on d/c. Oncology, Cardiology, Surgery and Primary will need to determine how urgently scopes are needed in light of this. Clinical Quality Measures AMI/AHF: ASA po Prior to arrival: No Copy Copies To 1: EMIL FARMER MD, BETHANY N MD Sep 14, 2020 11:23
[2020-09-14] MEDS: SENNA W/DOCUSATE (SENOKOT S) TABLET PO SCH (11:53)
[2020-09-14] MEDS: polyethylene glycoL POWDER 17 GM (MIRALAX) PACK PO SCH (11:53)
[2020-09-14] MEDS ORDERED: METF-399 PO (13:18)
[2020-09-14] MEDS ORDERED: FERR-84 PO (13:18)
[2020-09-14] MEDS ORDERED: RANO500T3 PO (13:21)
--- NOTE | 2020-09-14 14:42 | Discharge Summary ---
Discharge [facility] Discharge Medications New, Converted or Re-Newed RX: Transmitted to Pharmacy New Medications: Ranolazine (Ranexa) 500 Mg Tab.er.12h 500 MG PO BID, #60 TAB 0 Refills Continued Medications: Aspirin (Lo-Dose Aspirin EC) 81 Mg Tablet.dr 81 MG PO 1500, TAB Atorvastatin Calcium (Atorvastatin Calcium) 20 Mg Tablet 20 MG PO 1800, TAB TAKES WITH SUPPER Azelaic Acid (Finacea) 50 Gm Gel..gram. 1 APPLIC TP DAILY, TUBE Chlorpheniramine Maleate (Chlorpheniramine Maleate) 4 Mg Tablet 4 MG PO BID PRN for ALLERGY SYMPTOMS, TAB Clopidogrel Bisulfate (Plavix) 75 Mg Tablet 75 MG PO DAILY, TAB Cyanocobalamin (Vitamin B-12) (Vitamin B-12) 500 Mcg Tablet 500 MCG PO DAILY, TAB Docusate Sodium (Docusate Sodium) 100 Mg Capsule 100 MG PO DAILY PRN for CONSTIPATION-1ST LINE, CAP [Domperidone] () 10 TAB 10 MG PO QIDACHS, TAB RECIEVED MED FROM [facility] Ferrous Sulfate (Iron) 325 Mg Tablet 325 MG PO 1200,1500, TAB Fluticasone Propionate (Flonase Allergy Relief) 9.9 Ml [place].susp 2 SPRAY NS DAILY PRN for ALLERGIES, EACH Gabapentin (Neurontin) 300 Mg Capsule 300 MG PO 1800, CAP TAKES WITH SUPPER Glipizide (Glipizide) 5 Mg Tablet 5 MG PO DAILY, TAB Hydrocortisone (Hydrocortisone) 10 Mg Tablet 10 MG PO DAILY, TAB Hydrocortisone (Hydrocortisone) 10 Mg Tablet 5 MG PO 1200, TAB TAKES OF A 10MG TAB Hydrocortisone (Hydrocortisone) 10 Mg Tablet 2.5 MG PO 1500, TAB TAKES 1/4 OF A 10MG TAB Levothyroxine Sodium (Levothyroxine Sodium) 112 Mcg Tablet 112 MCG PO DAILY, TAB Loteprednol Etabonate (Lotemax Sm) 5 Gm Drops.gel 1 DROP OU 1900, TAB TAKES AFTER SUPPER Metformin HCl (Metformin HCl) 1,000 Mg Tablet 1000 MG PO BID, TAB TAKES WITH BREAKFAST AND SUPPER Metronidazole (Metronidazole) 45 Gm Cream..g. 1 APPLIC TP BID, EA Midodrine HCl (Midodrine HCl) 2.5 Mg Tablet 2.5 MG PO BID, TAB TAKES [facility] AND WITH SUPPER Pimecrolimus (Elidel) 30 Gm Cream.gm. 1 APPLIC TP DAILY PRN for PSORIASIS, EA Semaglutide (Ozempic) 1 Mg/0.75 Ml Pen.injctr 1 MG SQ MONDAY, VIAL Patient Instructions Goal/Follow Up Appt: Follow up with Dr. Farmer on 09/17 at 8:45. Follow up with Cardiology as directed. Patient Instructions: You will have to discuss with Oncology how urgently they feel scopes need to be done as Dr. Melchor recommends staying on anticoagulation for a month before holding for procedure if possible. Return to The [facility] For: Fever, rectal bleeding, chest pain Activity & Diet Discharge Diet: Cardiac Diet Activity as Tolerated: Yes Copy Copies To 1: EMIL FARMER MD, BETHANY N MD Sep 14, 2020 14:42
[2020-09-14] MEDS ORDERED: HYDROCORTISONE 2.5 MG PO SCH (15:00)
[2020-09-14] MEDS ORDERED: RANOLAZINE ER 500 MG TAB (RANEXA) PO SCH (21:00)
== END 2020-09-14 16:27 | disposition home or self-care (01) ==
LOC: EDUNIT# 10:16 → ER FS 10:18 → UNDOADMOB 14:30 → 4TH 14:30 → CATH 14:35 → 4TH 14:35 → ICU 09-14 12:08 → 4TH 09-14 12:08 → ICU 09-14 12:08 → UNDODISOB 09-14 16:27 → CATH 09-14 16:27
PROVIDERS: ATTEND Internal Medicine
DX: I21.4 Non-ST elevation (NSTEMI) myocardial infarction (principal); I25.10 Atherosclerotic heart disease of native coronary artery without angina pectoris; I10 Essential (primary) hypertension; E78.5 Hyperlipidemia, unspecified; E78.00 Pure hypercholesterolemia, unspecified; E11.36 Type 2 diabetes mellitus with diabetic cataract; D63.0 Anemia in neoplastic disease; M19.90 Unspecified osteoarthritis, unspecified site; E27.40 Unspecified adrenocortical insufficiency; Z79.82 Long term (current) use of aspirin; Z79.84 Long term (current) use of oral hypoglycemic drugs; Z79.899 Other long term (current) drug therapy; Z88.8 Allergy status to other drugs, medicaments and biological substances; Z87.891 Personal history of nicotine dependence; Z85.038 Personal history of other malignant neoplasm of large intestine; Z92.21 Personal history of antineoplastic chemotherapy; Z85.51 Personal history of malignant neoplasm of bladder; Z95.5 Presence of coronary angioplasty implant and graft
CPT/HCPCS: 36415; 71045; 80053 ×2; 80061; 83690; 83735; 83880; 84484 ×2; 85025 ×2; 85610; 85730; 93005 ×2; 93041; 93306; 93458; 99284; C1760; C1894; G0378

== ENCOUNTER 2020-10-14 05:31 | Outpatient (RCR) | payer MEDICARE ==
[~2020-10-14] VITALS: Ht 190.5 cm; Wt 79.5 kg
[~2020-10-14 05:31] MED LIST changes: +RANO500T3 PO
== END 2020-10-14 15:55 | disposition home or self-care (01) ==
LOC: PREOP 05:31 → EDSTATUS 10:30 → PREOP 15:55
PROVIDERS: ATTEND Surgery
DX: Z01.818 Encounter for other preprocedural examination (principal)

== ENCOUNTER → 2020-10-16 | Outpatient (CLI) | payer MEDICARE ==
[~2020-10-16] MED LIST changes: +RANO500T6 PO
== END ==
LOC: LAB FS 10:30
PROVIDERS: ATTEND Surgery
DX: Z01.812 Encounter for preprocedural laboratory examination (principal); D50.0 Iron deficiency anemia secondary to blood loss (chronic); Z20.822 Contact with and (suspected) exposure to COVID-19
CPT/HCPCS: 87635

== ENCOUNTER 2020-11-09 14:00 | Outpatient (RCR) | payer MEDICARE ==
[2020-08-17 13:12] LABS: BASOPHILS % (AUTO) 1 % (0-10); EOSINOPHILS # (AUTO) 0.2 10^3/uL (0.0-0.3); EOSINOPHILS % (AUTO) 2 % (0-10); HEMATOCRIT 29 % (40-54); HEMOGLOBIN 9.2 g/dL (13.3-17.7); LYMPHOCYTES # (AUTO) 1.6 10^3/uL (1.0-4.0); LYMPHOCYTES % (AUTO) 21 % (12-44); MEAN CORPUSCULAR HEMOGLOBIN 27 pg (25-34); MEAN CORPUSCULAR HGB CONC 31 g/dL (32-36); MEAN CORPUSCULAR VOLUME 85 fL (80-99); MEAN PLATELET VOLUME 8.9 fL (9.0-12.2); MONOCYTES # (AUTO) 0.5 10^3/uL (0.0-1.0); MONOCYTES % (AUTO) 6 % (0-12); NEUTROPHILS # (AUTO) 5.3 10^3/uL (1.8-7.8); NEUTROPHILS % (AUTO) 70 % (42-75); PLATELET COUNT 305 10^3/uL (130-400); WHITE BLOOD COUNT 7.6 10^3/uL (4.3-11.0)
[2020-08-17 13:35] LABS: ALBUMIN 3.8 GM/DL (3.2-4.5); BILIRUBIN,TOTAL 0.3 MG/DL (0.1-1.0); CALCIUM 8.8 MG/DL (8.5-10.1); CREATININE SERUM 1.26 MG/DL (0.60-1.30); POTASSIUM 4.4 MMOL/L (3.6-5.0); TOTAL PROTEIN 7.3 GM/DL (6.4-8.2)
== END 2020-11-15 | disposition home or self-care (01) ==
LOC: ONC 14:00
PROVIDERS: ATTEND Internal Medicine Hematology & Oncology
DX: C18.2 Malignant neoplasm of ascending colon (principal); D50.9 Iron deficiency anemia, unspecified; K92.2 Gastrointestinal hemorrhage, unspecified; I25.10 Atherosclerotic heart disease of native coronary artery without angina pectoris; Z87.891 Personal history of nicotine dependence; Z90.49 Acquired absence of other specified parts of digestive tract; Z85.51 Personal history of malignant neoplasm of bladder; Z80.9 Family history of malignant neoplasm, unspecified
CPT/HCPCS: 80053; 82607; 82728; 83540; 85025; G0463; 36591; 99213

== ENCOUNTER 2021-03-16 13:45 | Outpatient (RCR) | payer MEDICARE ==
[2021-03-11 14:40] LABS: BASOPHILS % (AUTO) 1 % (0-10); EOSINOPHILS # (AUTO) 0.1 10^3/uL (0.0-0.3); EOSINOPHILS % (AUTO) 2 % (0-10); HEMATOCRIT 33 % (40-54); LYMPHOCYTES # (AUTO) 1.3 10^3/uL (1.0-4.0); LYMPHOCYTES % (AUTO) 20 % (12-44); MEAN CORPUSCULAR HEMOGLOBIN 31 pg (25-34); MEAN CORPUSCULAR HGB CONC 34 g/dL (32-36); MEAN CORPUSCULAR VOLUME 93 fL (80-99); MONOCYTES # (AUTO) 0.3 10^3/uL (0.0-1.0); MONOCYTES % (AUTO) 5 % (0-12); NEUTROPHILS # (AUTO) 4.8 10^3/uL (1.8-7.8); NEUTROPHILS % (AUTO) 73 % (42-75); PLATELET COUNT 213 10^3/uL (130-400); WHITE BLOOD COUNT 6.6 10^3/uL (4.3-11.0)
[2021-03-11 14:58] LABS: ALBUMIN 3.8 GM/DL (3.2-4.5); BILIRUBIN,TOTAL 0.3 MG/DL (0.1-1.0); CALCIUM 8.8 MG/DL (8.5-10.1); CREATININE SERUM 1.28 MG/DL (0.60-1.30); POTASSIUM 4.3 MMOL/L (3.6-5.0); TOTAL PROTEIN 6.4 GM/DL (6.4-8.2)
[~2021-03-16 13:45] MED LIST changes: +FERRIC CARBOXYMALTOSE (CANCER) 750 MG in NS (IVPB) CANCER CENTER 250 ML IV SCH; -SULF1TAB35 PO; +SULF1TAB38 PO
== END 2021-04-19 | disposition home or self-care (01) ==
LOC: ONC 13:45
PROVIDERS: ATTEND Internal Medicine Hematology & Oncology
DX: C18.2 Malignant neoplasm of ascending colon (principal); D50.9 Iron deficiency anemia, unspecified; I10 Essential (primary) hypertension; E11.9 Type 2 diabetes mellitus without complications; I25.10 Atherosclerotic heart disease of native coronary artery without angina pectoris; Z90.49 Acquired absence of other specified parts of digestive tract; Z85.51 Personal history of malignant neoplasm of bladder; Z80.9 Family history of malignant neoplasm, unspecified
CPT/HCPCS: 36591; 80053; 82728; 83540; 83550; 85025; 96365; 99213

== ENCOUNTER → 2021-03-19 | Outpatient (CLI) | payer MEDICARE ==
[~2021-03-19] MED LIST changes: -FERRIC CARBOXYMALTOSE (CANCER) 750 MG in NS (IVPB) CANCER CENTER 250 ML IV SCH
--- NOTE | 2021-03-19 10:17 | Diagnostic Imaging Report ---
INDICATION: Slurred speech and right arm numbness, history of bladder and colon cancer TECHNIQUE: Multiple contiguous axial images were obtained through the brain without the use of intravenous contrast. Auto Exposure Controls were utilized during the CT exam to meet ALARA standards for radiation dose reduction. Comparison made to prior study of 12/04/2018 There are mild diffuse atrophic changes. There were no extra-axial fluid collections. No intracranial hemorrhage. No mass effect or midline shift. There are moderate low-density changes in the deep white matter compatible with chronic ischemic change, similar to the prior study. There is no new intracranial abnormality. Calvarial windows are unremarkable. IMPRESSION: Atrophic changes and chronic ischemic changes in deep white matter appearing similar to the prior study. No hemorrhage or mass effect or acute intracranial finding. Dictated by: Dictated on workstation # [id number]
== END ==
LOC: RAD FS 09:45
PROVIDERS: ATTEND Nurse Practitioner Family
DX: G31.9 Degenerative disease of nervous system, unspecified (principal); I67.82 Cerebral ischemia; Z85.51 Personal history of malignant neoplasm of bladder; Z79.02 Long term (current) use of antithrombotics/antiplatelets
CPT/HCPCS: 70450

== ENCOUNTER 2021-06-17 08:17 | Inpatient (IN) | payer MEDICARE ==
[~2021-06-17] VITALS: Ht 190.5 cm; Wt 79.5 kg
[~2021-06-17 08:17] MED LIST changes: +FLDR.1T PO; -LEVO500T80 PO; +LEVO500T81 PO; +NITR0.4T39 SL
--- NOTE | 2021-06-17 08:40 | ED General ---
General Chief Complaint: General Problems/Pain Stated Complaint: GEN WEAKNESS History of Present Illness Date Seen by Provider: Jun 17, 2021 Time Seen by Provider: 08:34 Initial Comments Patient presenting to the emergency department for evaluation of generalized weakness apparent fall shakiness vomiting that started this morning at around 3 in the morning. Patient reportedly was started on a new Parkinson's medication 2 days ago and then received a Covid booster and a shingles shot yesterday. Apparently he is mobile but does have some difficulty but his thought it was a good day for him yesterday. The reportedly did not sleep in the same bed as him last night and the patient says that he tried going to the bathroom and he could not stand on his own feet and he laid on the ground until his woke up this morning as patient was not able to get up on his own and then she called 911 for him to be brought here. Patient denied any pain to me and he also denied any fevers chills dysuria hematuria cough shortness of breath chest pain/patient has a heart rate of 120 and I asked him if that is consistent with his usual resting heart rate and he says his usual resting heart rate is 160. I told him that he is likely thinking of his blood pressure and he said no that his heart rate usually is 160. He is in no acute distress and otherwise did not have any abnormal vital signs although his map is slightly on the lower side at 70. Allergies and Home Medications Allergies Coded Allergies: oxaliplatin (Verified Allergy, Intermediate, 05/14/20) Patient Home Medication List Home Medication List Reviewed: Yes Aspirin (Lo-Dose Aspirin EC) 81 Mg Tablet.dr, 81 MG PO 1500, (Reported) Entered as Reported by: CANDIDA CENTENO on 07/26/18 1416 Azelaic Acid (Finacea) 50 Gm Gel..gram., 1 APPLIC TP DAILY, (Reported) Entered as Reported by: MALIKA HENRY on 10/04/18 1204 Chlorpheniramine Maleate (Chlorpheniramine Maleate) 4 Mg Tablet, 4 MG PO BID PRN for ALLERGY SYMPTOMS, (Reported) Entered as Reported by: CANDIDA CENTENO on 12/05/18 0935 Clopidogrel Bisulfate (Plavix) 75 Mg Tablet, 75 MG PO DAILY, (Reported) Entered as Reported by: CANDIDA CENTENO on 01/21/19 1630 Cyanocobalamin (Vitamin B-12) (Vitamin B-12) 500 Mcg Tablet, 500 MCG PO DAILY, (Reported) Entered as Reported by: YANNI DIAMOND on 05/14/20 155 Docusate Sodium (Docusate Sodium) 100 Mg Capsule, 100-200 MG PO HS, (Reported) Entered as Reported by: YANNI DIAMOND on 05/14/20 155 Ferrous Sulfate (Iron) 325 Mg Tablet, 325 MG PO 1500,2200, (Reported) Entered as Reported by: ALISON CENTENO on 05/16/21 154 Fludrocortisone Acetate (Fludrocortisone Acetate) 0.1 Mg Tab, 0.1 MG PO MON,FRI, (Reported) Entered as Reported by: ALISON CENTENO on 05/16/211542 Fludrocortisone Acetate (Fludrocortisone Acetate) 0.1 Mg Tab, 0.05 MG PO SUN,,,TH,SAT, (Reported) Entered as Reported by: ALISON CENTENO on 05/16/211542 Fluticasone Propionate (Flonase Allergy Relief) 9.9 Ml [place].susp, 2 SPRAY NS DAILY PRN for ALLERGIES, (Reported) Entered as Reported by: CANDIDA CENTENO on 10/04/18 1437 Gabapentin (Neurontin) 300 Mg Capsule, 300 MG PO 1800, (Reported) Entered as Reported by: YANNI DIAMOND on 05/14/20 154 Hydrocortisone (Hydrocortisone) 10 Mg Tablet, 10 MG PO DAILY, (Reported) Entered as Reported by: CIERRA SAMANIEGO on 11/25/19 162 Hydrocortisone (Hydrocortisone) 10 Mg Tablet, 5 MG PO 1200, (Reported) Entered as Reported by: CIERRA SAMANIEGO on 11/25/19 162 Hydrocortisone (Hydrocortisone) 10 Mg Tablet, 2.5 MG PO 1500, (Reported) Entered as Reported by: CIERRA SAMANIEGO on 11/25/19 162 Levothyroxine Sodium (Levothyroxine Sodium) 112 Mcg Tablet, 112 MCG PO DAILY, (Reported) Entered as Reported by: YANNI DIAMOND on 05/14/20 154 Loteprednol Etabonate (Lotemax Sm) 5 Gm Drops.gel, 1 DROP OU 1900, (Reported) Entered as Reported by: YANNI DIAMOND on 05/14/20 1548 Metformin HCl (Metformin HCl) 1,000 Mg Tablet, 1,000 MG PO BID WITH MEALS, (Reported) Entered as Reported by: OLIVER HOFFMANN on 09/14/20 1318 Metronidazole (Metronidazole) 45 Gm Cream..g., 1 APPLIC TP DAILY, (Reported) Entered as Reported by: MALIKA HENRY on 10/04/18 1204 Nitroglycerin (Nitroglycerin) 0.4 Mg Tab.subl, 0.4 MG SL UD PRN for CHEST PAIN, (Reported) Entered as Reported by: YANNI DIAMOND on 05/17/21 1521 Pantoprazole Sodium (Protonix) 40 Mg Granpkt.dr, 40 MG PO 1200, (Reported) Entered as Reported by: ALISON CENTENO on 05/16/21 1543 Pimecrolimus (Elidel) 30 Gm Cream.gm., 1 APPLIC TP DAILY PRN for PSORIASIS, (Reported) Entered as Reported by: MALIKA HENRY on 10/04/18 1204 Ranolazine (Ranolazine ER) 500 Mg Tab.er.12h, 500 MG PO BID WITH MEALS, (Reported) Entered as Reported by: OLIVER HOFFMANN on 10/19/20 1432 Semaglutide (Ozempic) 1 Mg/0.75 Ml Pen.injctr, 1 MG SQ MONDAY, (Reported) Entered as Reported by: CIERRA SAMANIEGO on 11/25/19 1627 [Domperidone] 10 TAB, 10 MG PO QIDACHS, (Reported) Entered as Reported by: YANNI DIAMOND on 05/14/20 1551 Review of Systems Review of Systems Constitutional: chills, malaise, weakness EENTM: no symptoms reported Respiratory: no symptoms reported Cardiovascular: no symptoms reported Gastrointestinal: nausea, vomiting Genitourinary: no symptoms reported Musculoskeletal: no symptoms reported Skin: no symptoms reported Psychiatric/Neurological: Weakness All Other Systems Reviewed Negative Unless Noted: Yes Past Rthegtt-Hgfftl-Cxzoxb Hx Patient Social History Tobacco Use?: No Use of E-Cig and/or Vaping dev: No Substance use?: No Alcohol Use?: Yes Alcohol Frequency: Rarely Pt feels they are or have been: No Immunizations Up To Date Tetanus Booster (TDap): Unknown First/Initial COVID19 Vaccinat: YES Second COVID19 Vaccination Kwaku: YES Third COVID19 Vaccination Date: YES COVID19 Vaccine Adolescent Specialist: Gavi Seasonal Allergies Seasonal Allergies: No Past Medical History Surgery/Hospitalization HX: Recent TIA, DM, Colon Cancer Hx treated with hemicolectomy; Parkinson's like syndrome Surgeries: Yes (BLADDER SURGERY-CANCER, COLON RESECTION, PORT) Abdominal, Bowel Surgery, Cardiac, Coronary Stent Respiratory: Yes Pulmonary Embolism Currently Using CPAP: No Currently Using BIPAP: No Cardiac: Yes (STENTS, ANGIOPLASTY 06/2018) Coronary Artery Disease, High Cholesterol, Hypertension Neurological: No Sexually Transmitted Disease: No HIV/AIDS: No Genitourinary: Yes (PAST HX BLADDER CA) Bladder Infection Gastrointestinal: Yes (COLON CA) Gastrointestinal Bleed Musculoskeletal: No Endocrine: Yes Diabetes, Non-Insulin dep HEENT: Yes (GLASSES) Cataract Loss of Vision: Bilateral Hearing Impairment: Denies Cancer: Yes Bladder, Colon Did You Recieve Any Treatments: Yes What Type of Treatment Did You: Chemotherapy, Surgical Intervention Psychosocial: No Integumentary: Yes Psoriasis Blood Disorders: Yes (ANEMIA) Adverse Reaction/Blood Tranf: No (HAS HAD BLOOD WITH NO REACTION) Family Medical History Abdominal aortic aneurysm Cardiovascular disease Cataracts Colon cancer Diabetes mellitus Glaucoma Hypertension Myocardial infarction Respiratory disorder Thyroid disease Visual disorder CAD Over 55 Years Old Physical Exam Vital Signs Vital Signs - First Documented 06/17/21 08:17 Temp 36.6 Pulse 119 Resp 18 B/P (MAP) 122/78 (93) Pulse Ox 97 O2 Delivery Room Air Capillary Refill : Height, Weight, BMI Height: 6'3.00" Weight: 188lbs. 1.6oz. 85.192222xv; 22.43 BMI Method:Estimated General Appearance: No Apparent Distress, Chronically ill Eyes: Bilateral Eye PERRL, Bilateral Eye EOMI HEENT: Pharynx Normal Neck: Supple Respiratory: Lungs Clear, No Respiratory Distress Cardiovascular: No Edema, Tachycardia Gastrointestinal: Non Tender, Soft Back: Normal Inspection Extremity: Normal Capillary Refill Neurologic/Psychiatric: Alert, Oriented x3, Other (Patient will move all extremities and he was able to hold both of his arms up for 10 seconds although he is slow to move. His lower extremities were even weaker with symmetric weakness where he could only hold his legs up slightly off the bed for 3 to 4 seconds.) Skin: Warm/Dry Focused Exam Lactate Level 06/17/21 08:30: Lactic Acid Level 2.28*H Lactic Acid Level Laboratory Tests Test 06/17/21 08:30 Lactic Acid Level 2.28 MMOL/L (0.50-2.00) *H Progress/Results/Core Measures Suspected Sepsis SIRS Temperature: Pulse: Respiratory Rate: Laboratory Tests 06/17/21 08:30: White Blood Count 10.5 Blood Pressure / Mean: 06/17/21 08:30: Lactic Acid Level 2.28*H Laboratory Tests 06/17/21 08:30: Creatinine 1.31H, INR Comment 1.0, Platelet Count 292, Total Bilirubin 0.4 Results/Orders Lab Results Laboratory Tests Test 06/17/21 08:30 Range/Units White Blood Count 10.5 4.3-11.0 10^3/uL Red Blood Count 3.24 L 4.30-5.52 10^6/uL Hemoglobin 10.5 L 13.3-17.7 g/dL Hematocrit 31 L 40-54 % Mean Corpuscular Volume 94 80-99 fL Mean Corpuscular Hemoglobin 32 25-34 pg Mean Corpuscular Hemoglobin Concent 34 32-36 g/dL Red Cell Distribution Width 13.1 10.0-14.5 % Platelet Count 292 130-400 10^3/uL Mean Platelet Volume 9.1 9.0-12.2 fL Immature Granulocyte % (Auto) 0 % Neutrophils (%) (Auto) 86 H 42-75 % Lymphocytes (%) (Auto) 8 L 12-44 % Monocytes (%) (Auto) 5 0-12 % Eosinophils (%) (Auto) 1 0-10 % Basophils (%) (Auto) 1 0-10 % Neutrophils # (Auto) 9.0 H 1.8-7.8 X 10^3 Lymphocytes # (Auto) 0.8 L 1.0-4.0 X 10^3 Monocytes # (Auto) 0.6 0.0-1.0 X 10^3 Eosinophils # (Auto) 0.1 0.0-0.3 10^3/uL Basophils # (Auto) 0.1 0.0-0.1 10^3/uL Immature Granulocyte # (Auto) 0.0 0.0-0.1 10^3/uL Neutrophils % (Manual) 82 % Lymphocytes % (Manual) 7 % Monocytes % (Manual) 5 % Basophils % (Manual) 2 % Band Neutrophils 1 % Reactive Lymphocytes 3 % Platelet Estimate NORMAL Blood Morphology Comment NORMAL Prothrombin Time 13.2 12.2-14.7 SEC INR Comment 1.0 0.8-1.4 Activated Partial Thromboplast Time 28 24-35 SEC Sodium Level 128 L 135-145 MMOL/L Potassium Level 3.9 3.6-5.0 MMOL/L Chloride Level 93 L 98-107 MMOL/L Carbon Dioxide Level 23 21-32 MMOL/L Anion Gap 12 5-14 MMOL/L Blood Urea Nitrogen 19 H 7-18 MG/DL Creatinine 1.31 H 0.60-1.30 MG/DL Estimat Glomerular Filtration Rate 54 BUN/Creatinine Ratio 15 Glucose Level 187 H 70-105 MG/DL Lactic Acid Level 2.28 *H 0.50-2.00 MMOL/L Calcium Level 8.9 8.5-10.1 MG/DL Corrected Calcium 9.1 8.5-10.1 MG/DL Total Bilirubin 0.4 0.1-1.0 MG/DL Aspartate Amino Transf (AST/SGOT) 10 5-34 U/L Alanine Aminotransferase (ALT/SGPT) < 5 0-55 U/L Alkaline Phosphatase 80 40-136 U/L Troponin I < 0.30 <0.30 NG/ML Pro-B-Type Natriuretic Peptide 1613.0 H <75.0 PG/ML Total Protein 6.8 6.4-8.2 GM/DL Albumin 3.8 3.2-4.5 GM/DL Lipase 26 8-78 U/L My Orders Orders - SHARON BRITT DO Ct Head Wo (06/17/21 08:32) Iv/Invasive Line Insertion .IV start (06/17/21 08:32) Cbc With Automated Diff (06/17/21 08:32) Comprehensive Metabolic Panel (06/17/21 08:32) Ekg Tracing (06/17/21 08:32) Chest 1 View Ap/Pa Only (06/17/21 08:32) Ua Culture If Indicated (06/17/21 08:32) Troponin I Fs (06/17/21 08:32) Lactic Acid Analyzer (06/17/21 08:32) Lipase (06/17/21 08:32) Partial Thromboplastin Time (06/17/21 08:32) Probnp Fs (06/17/21 08:32) Protime With Inr (06/17/21 08:32) Ondansetron Injection (Zofran Injectio (06/17/21 08:45) Ns Iv 1000 Ml (Sodium Chloride 0.9%) (06/17/21 08:45) Manual Differential (06/17/21 08:30) Medications Given in ED Current Medications Medications Dose Ordered Sig/Rabia Route Start Time Stop Time Status Last Admin Dose Admin Ondansetron HCl 4 mg ONCE ONCE IVP 06/17/21 08:45 06/17/21 08:46 DC 06/17/21 08:53 4 MG Vital Signs/I&O 06/17/21 08:17 Temp 36.6 Pulse 119 Resp 18 B/P (MAP) 122/78 (93) Pulse Ox 97 O2 Delivery Room Air Capillary Refill : Progress Note : Progress Note Patient has generalized weakness which could certainly be related to his vaccines or his recent medication changes. I will attempt to rule out acute pathology with labs imaging and I will treat his symptoms with Zofran IV fluids and reassess. Work-up does not reveal any acute pathology to explain his generalized weakness and inability to ambulate today. I had extensive discussion with patient and that this could be due to medications or his vaccines based off his generally poor physical condition he may need a higher level of care as he does not appear to be functioning well at home given his frequent admissions. Patient and are reluctant to have him in a residential facility but I told them that it may be unavoidable at this point. Dr. Dempsey agreed to accept patient at [facility] and his said she cannot take care of him any longer at home and is unwilling to take him home. Departure Impression Primary Impression: Generalized weakness Additional Impressions: Hyponatremia Lactic acid acidosis Tachycardia Failure to thrive in adult Disposition: 09 ADMITTED INPATIENT Condition: Stable Transfer Transfer Reason: Exceeds level of care Time Spoke to Accepting Phy: 09:33 Transfer Facility: [facility] Method of Transfer: EMS Departure-Patient Inst. Referrals: EMIL RITTER MD (PCP/Family) Primary Care Physician SHARON BRITT DO Jun 17, 2021 08:40
[2021-06-17] MEDS: NS IV 1000 ML 1,000 ML IV SCH ×4 (08:44→21:54)
[2021-06-17] MEDS ORDERED: ONDANSETRON 4 MG/2 ML (SDV) Z0FRAN IVP ONE (08:45)
--- NOTE | 2021-06-17 08:52 | Diagnostic Imaging Report ---
INDICATION: Weakness COMPARISON: 05/16/2021 and 05/14/2020 TECHNIQUE: Single frontal radiograph of the chest dated 06/17/2021. FINDINGS: Right-sided Port-A-Cath is again identified, appearing stable. The cardiac silhouette is borderline enlarged, though stable. No significant pulmonary vascular congestion. Mild chronic background interstitial lung changes are again identified without additional focal pulmonary opacity. No significant pleural effusion. No pneumothorax. No acute osseous abnormality. IMPRESSION: Stable examination demonstrating a right-sided Port-A-Cath and mild background chronic interstitial lung changes without superimposed acute cardiopulmonary abnormality. Dictated by: Dictated on workstation # [id number]
[2021-06-17 09:03] LABS: PROTHROMBIN TIME PATIENT 13.2 SEC (12.2-14.7)
[2021-06-17 09:04] LABS: BASOPHILS # (AUTO) 0.1 10^3/uL (0.0-0.1); BASOPHILS % (AUTO) 1 % (0-10); EOSINOPHILS # (AUTO) 0.1 10^3/uL (0.0-0.3); EOSINOPHILS % (AUTO) 1 % (0-10); HEMATOCRIT 31 % (40-54); HEMOGLOBIN 10.5 g/dL (13.3-17.7); LYMPHOCYTES # (AUTO) 0.8 X 10^3 (1.0-4.0); LYMPHOCYTES % (AUTO) 8 % (12-44); MEAN CORPUSCULAR HEMOGLOBIN 32 pg (25-34); MEAN CORPUSCULAR HGB CONC 34 g/dL (32-36); MEAN CORPUSCULAR VOLUME 94 fL (80-99); MEAN PLATELET VOLUME 9.1 fL (9.0-12.2); MONOCYTES # (AUTO) 0.6 X 10^3 (0.0-1.0); MONOCYTES % (AUTO) 5 % (0-12); NEUTROPHILS % (AUTO) 86 % (42-75); PLATELET COUNT 292 10^3/uL (130-400); WHITE BLOOD COUNT 10.5 10^3/uL (4.3-11.0)
--- NOTE | 2021-06-17 09:05 | Diagnostic Imaging Report ---
PROCEDURE: CT head without contrast. TECHNIQUE: Multiple contiguous axial images were obtained through the brain without the use of intravenous contrast. Auto Exposure Controls were utilized during the CT exam to meet ALARA standards for radiation dose reduction. DATE: June 17, 2021. COMPARISON: MRI brain May 17, 2021. CT head without contrast May 16, 2021. INDICATION: 71-year-old male, generalized weakness for 6 months. Worsening of symptoms today. FINDINGS: There are areas of low-attenuation in the periventricular and subcortical white matter likely reflecting moderate findings of chronic small vessel ischemic disease. The ventricles and cerebral spinal fluid spaces are of normal size and configuration for the patient's age. There is no mass effect or midline shift. There is no acute intracranial hemorrhage. There is no abnormal extra-axial fluid collection. There is nonspecific partial opacification within the right mastoid air cells without destruction of mastoid air cell septa. The visualized portions of the paranasal sinuses are well-aerated. IMPRESSION: 1. No identified acute intracranial abnormality. 2. Moderate probable findings of chronic small vessel ischemic disease. Dictated by: Dictated on workstation # [id number]
[2021-06-17 09:21] LABS: ALKALINE PHOSPHATASE 80 U/L (40-136); BILIRUBIN,TOTAL 0.4 MG/DL (0.1-1.0); BUN/CREATININE RATIO 15; CALCIUM 8.9 MG/DL (8.5-10.1); CARBON DIOXIDE 23 MMOL/L (21-32); CHLORIDE 93 MMOL/L (98-107); CREATININE SERUM 1.31 MG/DL (0.60-1.30); GFR ESTIMATED 54; GLUCOSE 187 MG/DL (70-105); POTASSIUM 3.9 MMOL/L (3.6-5.0); SODIUM 128 MMOL/L (135-145)
[2021-06-17 09:22] LABS: ALBUMIN 3.8 GM/DL (3.2-4.5); LIPASE 26 U/L (8-78); TOTAL PROTEIN 6.8 GM/DL (6.4-8.2)
[2021-06-17 09:24] LABS: ALANINE AMINOTRANSFERASE < 5 U/L (0-55)
[2021-06-17 09:33] LABS: BAND NEUTROPHILS 1 %; BASOPHILS % (MANUAL) 2 %; LYMPHOCYTES % (MANUAL) 7 %; MONOCYTES % (MANUAL) 5 %; NEUTROPHILS % (MANUAL) 82 %
[2021-06-17 09:34] LABS: PLATELET ESTIMATE NORMAL; RBC MORPH NORMAL; REACTIVE LYMPHOCYTES 3 %
[2021-06-17] MEDS ORDERED: ACETAMINOPHEN 325 MG TABLET PO PRN (12:15)
[2021-06-17 12:30] VITALS: BP 125/79
[2021-06-17 12:45] VITALS: BP 119/72
[2021-06-17] MEDS ORDERED: RT-ALBUTEROL SULF 2.5 MG/3 ML PRE-MIX VIAL INH PRN (12:45)
--- NOTE | 2021-06-17 13:17 | Occ Therapy Progress Note ---
Therapy Progress Note OT orders received and chart reviewed. Pt on hold this date per nursing. Pt just arrived to hospital today and is super tired, recently had COVID booster and shingles shot. Pt requests nurse to turn lights off and close door so he can rest this afternoon. OT will initiate tx tomorrow. DEN OWENS OT Jun 17, 2021 13:17
--- NOTE | 2021-06-17 15:15 | History & Physical-Hospitalist ---
RADU DANIELS MED STUDENT 06/17/21 1514: History of Present Illness HPI/Chief Complaint CC- Fall/Generalized Weakness Mr. Pate is a 71yo male that was admitted to [facility] from [facility]. He presented to the ED today for generalized weakness, a fall, shakiness, and vomiting. He was recently diagnosed with parkinson like syndrome and started sinemet about 3 days ago. His neurologist is Dr garcia in [place]. He also got a covid booster and his shingles shot yesterday. States that in the morning at about 3 AM he tried to get out of bed to go to the bathroom but his legs were not strong enough to hold him up so he had to lay on the floor until his found hum there. States that he has been week for several months. thinks it has been getting worse as time progresses but that he seemed to be pretty strong yesterday and she is a little surprised this has happened. He does not recall any specific alleviating or mitigating factors. He states that maybe he feels a bit weaker when he has been walking but otherwise there does not seem to be anyt ngoc that triggers or helps with his symptoms. He does complain of a low appetite, difficulty swallowing, Pain in his legs (burning in quality, history of diabetes), and constipation (-Monday, ~5days ago.) He denies any headaches, vision changes, hearing changes, vomiting, coughing, phlegm, CP, P alpatations, SOB, Abdominal Pain, Diarrhea, Painful bowel movements, melena, Dysuria, hematuria, rashes, or swelling in his legs. His states that he has not really been hospitalized for anything like this before. He was hospitalized on this year for stroke like symtpoms and was found to have stenotic vessels in his brain and did not have a true stroke. He did have a lot of weakness and numbness symptoms at the time however. He and his do not have any specific questions this afternoon. Source: patient, family () Exam Limitations: no limitations Date Seen 06/17/21 Time Seen by a Provider: 13:05 Attending Physician Stella Garrido Pankaj K MD Referring Physician Date of Admission Jun 17, 2021 at 12:00 Home Medications & Allergies Home Medications Reviewed patient Home Medication Reconciliation performed by pharmacy medication reconciliations chemical processing technician and/or nursing. Patients Allergies have been reviewed. Allergies Allergies Coded Allergies oxaliplatin (Verified Allergy, Intermediate, 05/14/20) Past Yiruthv-Gefcac-Utpgsr Hx Patient Social History Marrital Status: Tobacco Use?: No (Former) Use of E-Cig and/or Vaping dev: No Substance use?: No Alcohol Use?: Yes Alcohol Frequency: Rarely Pt feels they are or have been: No Immunizations Up To Date Date of Influenza Vaccine: Apr 24, 2020 First/Initial COVID19 Vaccinat: YES Second COVID19 Vaccination Kwaku: YES Tetanus Booster (TDap): Unknown Hepatitis A: No Hepatitis B: No Date of Pneumonia Vaccine: Jul 17, 2016 Seasonal Allergies Seasonal Allergies: No Current Status Advance Directives: No Primary Language: Malian Preferred Spoken Language: Malian Past Medical History Surgeries: Abdominal, Bladder Surgery, Bowel Surgery, Cardiac, Coronary Stent Pulmonary Embolism Currently Using CPAP: No Currently Using BIPAP: No Coronary Artery Disease, High Cholesterol, Hypertension Sexually Transmitted Disease: No HIV/AIDS: No Bladder Infection Gastrointestinal Bleed Diabetes, Non-Insulin dep Cataract Loss of Vision: Bilateral Hearing Impairment: Denies Bladder, Colon Did You Recieve Any Treatments: Yes What Type of Treatment Did You: Chemotherapy, Surgical Intervention Psoriasis Blood Disorders: Yes (ANEMIA) Adverse Reaction/Blood Tranf: No (HAS HAD BLOOD WITH NO REACTION) PMHx: Coronary artery disease Hypothyroidism Degernative disc disease History of PE and DVT Bladder cancer Osteoarthritis Hyperlipidemia Diabetes type II Adrenal insufficiency Colon Cancer Hypotension and syncope SurgHx: Colon resection Angioplasty Bladder cancer surgeries Vasectomy Right eye cataract Family Medical History Abdominal aortic aneurysm Cardiovascular disease Cataracts Colon cancer Diabetes mellitus Glaucoma Hypertension Myocardial infarction Respiratory disorder Thyroid disease Visual disorder CAD Over 55 Years Old Review of Systems Constitutional: see HPI; No chills, No fever; weakness EENTM: see HPI Respiratory: see HPI Cardiovascular: see HPI Genitourinary: see HPI Musculoskeletal: see HPI Skin: see HPI Psychiatric/Neurological: See HPI Physical Exam Physical Exam Vital Signs Vital Signs - First Documented 06/17/21 06/17/21 08:17 12:30 Temp 36.6 Pulse 119 Resp 18 B/P (MAP) 122/78 (93) Pulse Ox 97 O2 Delivery Room Air FiO2 21 Capillary Refill : Less Than 3 Seconds Height, Weight, BMI Height: 6'3.00" Weight: 188lbs. 1.6oz. 85.495388sq; 21.00 BMI Method:Estimated General Appearance: No Apparent Distress, WD/WN HEENT: Pharynx Normal, Moist Mucous Membranes Neck: Non Tender, Supple Respiratory: Chest Non Tender, Lungs Clear, Normal Breath Sounds, No Accessory Muscle Use, No Respiratory Distress Cardiovascular: Regular Rate, Rhythm, No Edema, No Murmur, Normal Peripheral Pulses Gastrointestinal: Normal Bowel Sounds, No Organomegaly, No Pulsatile Mass, Non Tender (Tenderness on R side of abdomen from fall), Soft Rectal: Deferred Back: No Vertebral Tenderness Extremity: Normal Capillary Refill, Normal Inspection, Non Tender, No Calf Tenderness, No Pedal Edema, Other (Generalized soreness/tenderness in sholders, legs, hips, due to his fall and extended time laying on floor. ) Skin: Normal Color, Warm/Dry Results Results/Procedures Labs Laboratory Tests 06/17/21 08:30 Patient resulted labs reviewed. Imaging NAME: HETAL HERNANDEZ [facility] REC#: [id number] PT STATUS: ADM IN : 1950 PHYSICIAN: SHARON BRITT DO ADMIT DATE: 06/17/21 Signed Date of Exam:06/17/21 CHEST 1 VIEW AP/PA ONLY INDICATION: Weakness COMPARISON: 05/16/2021 and 05/14/2020 TECHNIQUE: Single frontal radiograph of the chest dated 06/17/2021. FINDINGS: Right-sided Port-A-Cath is again identified, appearing stable. The cardiac silhouette is borderline enlarged, though stable. No significant pulmonary vascular congestion. Mild chronic background interstitial lung changes are again identified without additional focal pulmonary opacity. No significant pleural effusion. No pneumothorax. No acute osseous abnormality. IMPRESSION: Stable examination demonstrating a right-sided Port-A-Cath and mild background chronic interstitial lung changes without superimposed acute cardiopulmonary abnormality. Dictated by: Dictated on workstation # [id number] Dict: 06/17/21 0848 Trans: 06/17/21 1235 PONCHO [id number] Interpreted by: SUKI VILLEDA MD Electronically signed by: SUKI VILLEDA MD 06/17/21 1235 NAME: HETAL HERNANDEZ MED REC#: [id number] PT STATUS: REG ER : 1950 PHYSICIAN: SHARON BRITT DO ADMIT DATE: 06/17/21/RISA FS Signed Date of Exam:06/17/21 CT HEAD WO PROCEDURE: CT head without contrast. TECHNIQUE: Multiple contiguous axial images were obtained through the brain without the use of intravenous contrast. Auto Exposure Controls were utilized during the CT exam to meet ALARA standards for radiation dose reduction. DATE: June 17, 2021. COMPARISON: MRI brain May 17, 2021. CT head without contrast May 16, 2021. INDICATION: 71-year-old male, generalized weakness for 6 months. Worsening of symptoms today. FINDINGS: There are areas of low-attenuation in the periventricular and subcortical white matter likely reflecting moderate findings of chronic small vessel ischemic disease. The ventricles and cerebral spinal fluid spaces are of normal size and configuration for the patient's age. There is no mass effect or midline shift. There is no acute intracranial hemorrhage. There is no abnormal extra-axial fluid collection. There is nonspecific partial opacification within the right mastoid air cells without destruction of mastoid air cell septa. The visualized portions of the paranasal sinuses are well-aerated. IMPRESSION: 1. No identified acute intracranial abnormality. 2. Moderate probable findings of chronic small vessel ischemic disease. Dictated by: Dictated on workstation # [id number] Dict: 06/17/2154 Trans: 06/17/[address] [facility] [id number] Interpreted by: TERRI ROBERSON MD Electronically signed by: TERRI ROBERSON MD 06/17/21902 Assessment/Plan Admission Diagnosis Fall, Weakness Admission Status: Observation Reason for Inpatient Admission: Observation, Placement Assessment and Plan Fall/Generalized Weakness -Pt has reveived Xray and head CT -Pain management if necessary -PT Parkinsons -Contact neurologist and see if sinemet could be cause of this episode -Continue to monitor Hyponatremia -Chronic problem for pt -Fluid restriction Anemia -Chronic for pt, takes daily iron -Evaluate w/ CBCs Lactic Acidosis -Rechecking labs until levels go down -Sepsis does not seem likely at this time EVARISTO -IV Fluids History of Heart Attack/TIA Supervisory-Addendum Brief Verification & Attestation Participated in pt care: history, physical Personally performed: exam, history Care discussed with: Medical Student Procedures: n/a n/a STELLA GARRIDO DO 06/18/21 0525: History of Present Illness HPI/Chief Complaint CC: Fall HPI: This is a very debilitated complicated pt of [facility] known to me who presented from [facility] to be admitted due to severe weakness after falling through the night and laid on the floor of his house all night and could not walk. He did see Dr. Garcia Neurologist who diagnosed him with Parkinsonian like tremor. Pt just had a shingles vaccine, Covid vaccine, and started on Sinemet. Pt will need to go to a halfway. Source: patient, family (), old records Exam Limitations: no limitations Past Tbemiot-Rwcovp-Mtzldk Hx Patient Social History Marrital Status: Tobacco Use?: No (Former) Smoking Status: Former Smoker Past Medical History Chronic Edema/Swelling, Coronary Artery Disease, High Cholesterol, Hypertension Parkinson's Disease Bladder Infection, Renal Failure Gastroesophageal Reflux Arthritis, Chronic Back Pain Hypothyroidsim Colon Did You Recieve Any Treatments: Yes What Type of Treatment Did You: Chemotherapy, Surgical Intervention Family Medical History Abdominal aortic aneurysm Cardiovascular disease Cataracts Colon cancer Diabetes mellitus Glaucoma Hypertension Myocardial infarction Respiratory disorder Thyroid disease Visual disorder Review of Systems Constitutional: see HPI, weakness EENTM: no symptoms reported Respiratory: no symptoms reported Cardiovascular: no symptoms reported Gastrointestinal: no symptoms reported Genitourinary: no symptoms reported Musculoskeletal: no symptoms reported Skin: no symptoms reported Psychiatric/Neurological: No Symptoms Reported All Other Systems Reviewed Negative Unless Noted: Yes Physical Exam Physical Exam General Appearance: No Apparent Distress, Chronically ill Eyes: Right Eye Normal Inspection, Right Eye PERRL HEENT: PERRL/EOMI, Normal ENT Inspection, Pharynx Normal, Moist Mucous Membranes Neck: Full Range of Motion, Normal Inspection, Non Tender Respiratory: Chest Non Tender, Lungs Clear, Normal Breath Sounds, No Accessory Muscle Use, No Respiratory Distress Cardiovascular: Regular Rate, Rhythm, No Edema, No Gallop, No JVD, No Murmur, Normal Peripheral Pulses Gastrointestinal: Normal Bowel Sounds, No Organomegaly, No Pulsatile Mass, Non Tender, Soft Back: Normal Inspection, No CVA Tenderness, No Vertebral Tenderness Extremity: Normal Capillary Refill, Normal Inspection, Normal Range of Motion, Non Tender, No Calf Tenderness, No Pedal Edema Neurologic/Psychiatric: Alert, Oriented x3, No Motor/Sensory Deficits, Normal Mood/Affect, Motor Weakness (Generalized) Skin: Normal Color, Warm/Dry Lymphatic: No Adenopathy Assessment/Plan Admission Diagnosis Assessment: Fall and found down 6 hours later at home Elevated lactic acid from volume depletion Parkinsonian-like tremor CAD Colon cancer Hypothyroidism Severe debility Plan: Supportive care PT and OT IV fluid Supervisory-Addendum Brief Verification & Attestation Participated in pt care: history, MDM, physical Personally performed: exam, history, MDM, supervision of care Care discussed with: Medical Student Procedures: n/a Results interpretation: Verified all documentation Verification and Attestation of Medical Student E/M Service A medical student performed and documented this service in my presence. I reviewed and verified all information documented by the medical student and made modifications to such information, when appropriate. I personally performed the physical exam and medical decision making. Stella Garrido, Jun 18, 2021,05:25 RADU DANIELS MED STUDENT Jun 17, 2021 15:14 STELLA GARRIDO DO Jun 18, 2021 05:25
[2021-06-17 15:47] VITALS: BP 135/75
[2021-06-17 19:49] VITALS: BP 118/73
[2021-06-18] VITALS: BP 132/74
[2021-06-18 04:00] VITALS: BP 146/88
[2021-06-18 06:08] LABS: BASOPHILS % (AUTO) 1 % (0-10); EOSINOPHILS # (AUTO) 0.2 10^3/uL (0.0-0.3); EOSINOPHILS % (AUTO) 4 % (0-10); HEMATOCRIT 26 % (40-54); HEMOGLOBIN 8.7 g/dL (13.3-17.7); LYMPHOCYTES # (AUTO) 0.9 10^3/uL (1.0-4.0); LYMPHOCYTES % (AUTO) 15 % (12-44); MEAN CORPUSCULAR HEMOGLOBIN 32 pg (25-34); MEAN CORPUSCULAR HGB CONC 33 g/dL (32-36); MEAN CORPUSCULAR VOLUME 96 fL (80-99); MEAN PLATELET VOLUME 9.3 fL (9.0-12.2); MONOCYTES # (AUTO) 0.5 10^3/uL (0.0-1.0); MONOCYTES % (AUTO) 8 % (0-12); NEUTROPHILS # (AUTO) 4.2 10^3/uL (1.8-7.8); NEUTROPHILS % (AUTO) 73 % (42-75); PLATELET COUNT 223 10^3/uL (130-400); WHITE BLOOD COUNT 5.9 10^3/uL (4.3-11.0)
[2021-06-18 06:15] LABS: ALBUMIN 3.2 GM/DL (3.2-4.5); POTASSIUM 3.6 MMOL/L (3.6-5.0)
[2021-06-18 06:17] LABS: CALCIUM 8.2 MG/DL (8.5-10.1)
[2021-06-18 06:18] LABS: TOTAL PROTEIN 5.6 GM/DL (6.4-8.2)
[2021-06-18 06:20] LABS: BILIRUBIN,TOTAL 0.3 MG/DL (0.1-1.0)
[2021-06-18 06:21] LABS: CREATININE SERUM 1.25 MG/DL (0.60-1.30)
[2021-06-18 08:00] VITALS: BP 144/82
[2021-06-18] MEDS: NS IV 1000 ML 1,000 ML IV SCH (08:36)
[2021-06-18 08:57] LABS: BILIRUBIN,URINE NEGATIVE (NEGATIVE); CLARITY,URINE CLEAR; COLOR,URINE YELLOW; GLUCOSE, URINE (UA) 1+ (NEGATIVE); KETONES,URINE TRACE (NEGATIVE); LEUKOCYTE ESTERASE ,URINE NEGATIVE (NEGATIVE); NITRITE,URINE NEGATIVE (NEGATIVE); PROTEIN,URINE NEGATIVE (NEGATIVE)
[2021-06-18] MEDS ORDERED: CLOP75TA28 PO (08:58)
[2021-06-18] MEDS ORDERED: PANT40TA52 PO (08:58)
[2021-06-18] MEDS ORDERED: ACET-2267 PO (08:58)
[2021-06-18] MEDS ORDERED: CARB1TAB40 PO (08:58)
[2021-06-18] MEDS ORDERED: ALIR75PE5 INJ (08:58)
[2021-06-18] MEDS ORDERED: SEMA1PEN3 IJ (08:58)
[2021-06-18] MEDS ORDERED: LEVO112T68 PO (08:58)
[2021-06-18 09:06] LABS: BACTERIA,URINE NEGATIVE /HPF; SQUAMOUS EPITHELIAL CELL,UR RARE /HPF; WBC,URINE 0-2 /HPF
--- NOTE | 2021-06-18 10:24 | Physical Therapy Evaluation ---
PT Evaluation-General Medical Diagnosis Admission Date Jun 17, 2021 at 12:00 Medical Diagnosis: hyponatremia/weakness/fatigue Onset Date: Jun 17, 2021 Therapy Diagnosis Therapy Diagnosis: debility Height/Weight Height (Feet): 6 Height (Inches): 3.00 Weight (Pounds): 188 Weight (Ounces): 1.6 Precautions Precautions/Isolations: Fall Prevention, Standard Precautions Referral Physician: Ke Reason for Referral: Evaluation/Treatment Medical History Pertinent Medical History: CAD, DM, HTN, Hypothroidism, Parkinson's Current History ER secondary to generalized weakness, vomiting and fall Reviewed History: Yes Social History Home: [facility] Current Living Status: Spouse Entry Into Home: Stairs With Railing PT Steps Into Home: 7 Prior Prior Level of Function SCALE: Activities may be completed with or without assistive devices. 9-Gdulkamqma-oxlgbjk completes the activity by him/herself with no assistance from a helper. 5-Set-up or Clean-up Assistance-helper sets up or cleans up; patient completes activity. [place] assists only prior to or following the activity. 4-Supervision or Touching Assistance-helper provides verbal cues and/or touching/steadying and/or contact guard assistance as patient completes activity. Assistance may be provided throughout the activity or intermittently. 3-Partial/Moderate Assistance-helper does LESS THAN HALF the effort. [place] li fts, holds or supports trunk or limbs, but provides less than half the effort. 2-Substantial/Maximal Assistance-helper does MORE THAN HALF the effort. [place] lifts or holds trunk or limbs and provides more than half the effort. 9-Ygpmebvps-hkgkph does ALL the effort. Patient does none of the effort to complete the activity. Or, the assistance of 2 or more helpers is required for the patient to complete the activity. If activity was not attempted, code reason: 7-Patient Refused. 9-Not Applicable-not attempted and the patient did not perform the activity before the current illness, exacerbation or injury. 10-Not Attempted due to Environmental Limitations-(lack of equipment, weather restraints, etc.). 88-Not Attempted due to Medical Conditions or Safety Concerns. Bed Mobility: 4 Transfers (B,C,W/C): 4 Gait: 4 Stairs: 4 Indoor Mobility (Ambulation): Needed Some Help Stairs: Needed Some Help Prior Devices Use: Walker spouse and patient report, spouse assists with mobility for safety due to Parkinson's PT Evaluation-Current Subjective Patient agrees to PT. Spouse present. Objective Patient Orientation: Normal For Age Attachments: IV ROM/Strength ROM Lower Extremities bilateral LE WFL Strength Lower Extremities 4/5 grossly bilateral LE Integumentary/Posture Bowel Incontinence: No Bladder Incontinence: No Posture kyphotic Neuromuscular (Tone, Coordination, Reflexes) grossly intact/shuffle gait sequence Sensory Vision: Functional Hearing: Functional Transfers Lying to Sitting/Side of Bed(Q: 4 Sit to Stand (QC): 4 Chair/Swt-ao-Totqb Xfer(QC): 4 SBA for safety Gait Does the Patient Walk?: Yes Mode of Locomotion: Walk Anticipated Mode of Locomotion: Walk Walk 10 feet (QC): 4 Walk 50 ft with 2 Turns(QC): 4 Walk 150 ft (QC): 4 Distance: 325' Gait Assistive Device: FWW Comments/Gait Description noted shuffle gait sequence/PT VC's for foot clearance with patient unable to perform Balance Sitting Static: Normal Sitting Dynamic: Normal Standing Static: Fair Standing Dynamic: Fair Assessment/Needs 71 y.o. male, will be seen short term by skilled PT to address functional strength and mobility to ensure safe return to home with spouse. PT educated patient and spouse on beginning outpatient PT, then transition to wellness to address gross motor skills. Rehab Potential: Fair PT Skilled Nursing Goals Water Meter Reader Goals PT Skilled Nursing Goals Time Frame: Jun 26, 2021 Roll Left & Right (QC): 5 Sit to Lying (QC): 5 Lying-Sitting on Side/Bed(QC): 5 Sit to Stand (QC): 5 Chair/Sji-kc-Mwmly Xfer(QC): 5 Walk 10 feet (QC): 4 Walk 50ft with 2 Turns (QC): 4 Walk 150 ft (QC): 4 PT Plan Problem List Problem List: Activity Tolerance, Functional Strength, Safety, Balance, Gait, Transfer, Bed Mobility Treatment/Plan Treatment Plan: Continue Plan of Care Treatment Plan: Bed Mobility, Education, Functional Activity Basilio, Functional Strength, Therapeutic Exercise, Transfers Treatment Duration: Jun 26, 2021 Frequency: 6 times per week Estimated Hrs Per Day: .5 hour per day Patient and/or Family Agrees t: Yes Time/GCodes Time In: 825 Time Out: 837 Total Billed Treatment Time: 12 Total Billed Treatment 1 visit EVModC 12 min LEANNE PETERSON PT Jun 18, 2021 10:24
[2021-06-18] MEDS ORDERED: NON-FORMULARY MEDICATION 1 EA EA (Semaglutide (Ozempic) 1 MG) IJ SCH (11:00)
[2021-06-18] MEDS ORDERED: FLUDROCORTISONE 0.1 MG (FLORINEF) TAB PO SCH ×2 (11:00)
[2021-06-18] MEDS ORDERED: ACETAMINOPHEN 500 MG TAB (TYLENOL) PO PRN (11:00)
[2021-06-18] MEDS ORDERED: DOCUSATE SODIUM 100 MG (COLACE) CAP PO PRN (11:00)
[2021-06-18] MEDS ORDERED: NITROGLYCERIN 0.4 MG SL TABS BTL 25'S SL PRN (11:00)
[2021-06-18] MEDS ORDERED: NON-FORMULARY MEDICATION 1 EA EA (Alirocumab (Praluent Pen) 75 MG) INJ SCH (11:00)
[2021-06-18] MEDS ORDERED: NON-FORMULARY MEDICATION 1 EA EA (Fluticasone Propionate (Flonase Allergy Relief) 2 SPRAY) NS PRN (11:00)
[2021-06-18] MEDS ORDERED: CHLORPHENIRAMINE 4 MG TAB (NON-FORMULARY) PO PRN (11:00)
[2021-06-18] MEDS ORDERED: PIMECROLIMUS 1% TP PRN (11:00)
--- NOTE | 2021-06-18 11:01 | Discharge Summary ---
Discharge Summary Hospital Course Was the Problem List Reviewed?: Yes Problems/Dx: (1) Syncope Status: Acute (2) Lactic acid acidosis Status: Acute (3) Tachycardia Status: Acute (4) Generalized weakness Status: Acute Hospital Course Date of Admission: Jun 17, 2021 at 12:00 Admission Diagnosis : Family Physician/Provider: Hans Farmer MD Date of Discharge: 06/18/21 Discharge Diagnosis: Syncope, fall, found down, lactic acidosis, dehydration Hospital Course: Hospital course: Pt had a rapid hospital course, he was admitted for being found down at home with severe weakness after receiving the shingles vaccine, Covid booster and starting on a new medication for Parkinsonian Tremor with Sinemet. He was given IV fluids for elevated lactic acid, he had return of function. PT and OT thought he would benefit from outpatient therapy and he was deemed stable for discharge with all of his home medication. Labs and Pending Lab Test: Laboratory Tests 06/17/21 12:42: Lactic Acid Level 3.21*H, Total Creatine Kinase 89 06/17/21 15:09: Lactic Acid Level 1.85 06/18/21 05:45: White Blood Count 5.9, Red Blood Count 2.72L, Hemoglobin 8.7L, Hematocrit 26L, Mean Corpuscular Volume 96, Mean Corpuscular Hemoglobin 32, Mean Corpuscular Hemoglobin Concent 33, Red Cell Distribution Width 13.2, Platelet Count 223, Mean Platelet Volume 9.3, Immature Granulocyte % (Auto) 0, Neutrophils (%) (Auto) 73, Lymphocytes (%) (Auto) 15, Monocytes (%) (Auto) 8, Eosinophils (%) (Auto) 4, Basophils (%) (Auto) 1, Neutrophils # (Auto) 4.2, Lymphocytes # (Auto) 0.9L, Monocytes # (Auto) 0.5, Eosinophils # (Auto) 0.2, Basophils # (Auto) 0.0, Immature Granulocyte # (Auto) 0.0, Sodium Level 131L, Potassium Level 3.6, Chloride Level 100, Carbon Dioxide Level 22, Anion Gap 9, Blood Urea Nitrogen 15, Creatinine 1.25, Estimat Glomerular Filtration Rate 57, BUN/Creatinine Ratio 12, Glucose Level 141H, Calcium Level 8.2L, Corrected Calcium 8.8, Total Bilirubin 0.3, Aspartate Amino Transf (AST/SGOT) 12, Alanine Aminotransferase (ALT/SGPT) 10, Alkaline Phosphatase 58, Total Protein 5.6L, Albumin 3.2 06/18/21 08:54: Urine Color YELLOW, Urine Clarity CLEAR, Urine pH 7.0, Urine Specific [place] 1.015L, Urine Protein NEGATIVE, Urine Glucose (UA) 1+H, Urine Ketones TRACEH, Urine Nitrite NEGATIVE, Urine Bilirubin NEGATIVE, Urine Urobilinogen 0.2, Urine Leukocyte Esterase NEGATIVE, Urine RBC (Auto) NEGATIVE, Urine RBC NONE, Urine WBC 0-2, Urine Squamous Epithelial Cells RARE, Urine Crystals NONE, Urine Bacteria NEGATIVE, Urine Casts NONE, Urine Mucus NEGATIVE, Urine Culture Indicated NO Home Meds Active Reported Tylenol Extra Strength (Acetaminophen) 500 Mg Tablet 500-1,000 Mg PO Q8H PRN Clopidogrel (Clopidogrel Bisulfate) 75 Mg Tablet 75 Mg PO DAILY Pantoprazole Sodium 40 Mg Tablet.dr 40 Mg PO 1200 W/MEAL Euthyrox (Levothyroxine Sodium) 112 Mcg Tablet 112 Mcg PO DAILY Praluent Pen (Alirocumab) 75 Mg/1 Ml Pen.injctr 75 Mg INJ EVERY 2 WEEKS Carbidopa-Levo ER 25-100 Tab (Carbidopa/Levodopa) 1 Each Tablet.er 1 Ea PO TID Ozempic (Semaglutide) 1 Mg/0.75 Ml Pen.injctr 1 Mg IJ WED Nitroglycerin 0.4 Mg Tab.subl 0.4 Mg SL UD PRN Fludrocortisone Acetate 0.1 Mg Tab 0.05 Mg PO MON,,,,SAT W/BREAKFAST TAKES OF A 0.1MG TAB Fludrocortisone Acetate 0.1 Mg Tab 0.1 Mg PO MON,FRI W/BREAKFAST Iron (Ferrous Sulfate) 325 Mg Tablet 325 Mg PO 1500,2200 Ranolazine ER (Ranolazine) 500 Mg Tab.er.12h 500 Mg PO BID WITH MEALS Metformin HCl 1,000 Mg Tablet 1,000 Mg PO BID WITH MEALS Docusate Sodium 100 Mg Capsule 100 Mg PO DAILY PRN Vitamin B-12 (Cyanocobalamin (Vitamin B-12)) 500 Mcg Tablet 500 Mcg PO 1200 [Domperidone] 10 Tab 10 Mg PO QIDACHS RECIEVED MED FROM [facility] Neurontin (Gabapentin) 300 Mg Capsule 300 Mg PO 1800 TAKES WITH SUPPER Lotemax Sm (Loteprednol Etabonate) 5 Gm Drops.gel 1 Drop OU 1900 TAKES AFTER SUPPER Hydrocortisone 10 Mg Tablet 2.5 Mg PO 1500 TAKES 1/4 OF A 10MG TAB Hydrocortisone 10 Mg Tablet 5 Mg PO 1200 TAKES OF A 10MG TAB Hydrocortisone 10 Mg Tablet 10 Mg PO DAILY Chlorpheniramine Maleate 4 Mg Tablet 4 Mg PO BID PRN Flonase Allergy Relief (Fluticasone Propionate) 9.9 Ml Maple.susp 2 Maple NS DAILY PRN Metronidazole 45 Gm Cream..g. 1 Applic TP 1900 APPLY TO FACE Finacea (Azelaic Acid) 50 Gm Gel..gram. 1 Applic TP DAILY APPLY TO FACE Elidel (Pimecrolimus) 30 Gm Cream.gm. 1 Applic TP DAILY PRN Lo-Dose Aspirin EC (Aspirin) 81 Mg Tablet.dr 81 Mg PO 1500 Assessment/Pt Instructions PCP in 1 week Discharge Planning: <30 minutes discharge planning Discharge Instructions Discharge Diet: No Restrictions Activity as Tolerated: Yes Discharge Physical Examination Vital Signs Vital Signs Date Time Temp Pulse Resp B/P (MAP) Pulse Ox O2 Delivery O2 Flow Rate FiO2 06/18/21 08:00 36.0 88 18 144/82 (102) 96 Room Air 06/17/21 12:30 21 General Appearance: No Apparent Distress, WD/WN Respiratory: Lungs Clear, Normal Breath Sounds Cardiovascular: Regular Rate, Rhythm Allergies: Coded Allergies: oxaliplatin (Verified Allergy, Intermediate, 05/14/20) Discharge Summary Date of Admission Jun 17, 2021 at 12:00 Date of Discharge Discharge Date: Jun 18, 2021 Admission Diagnosis Assessment: Fall and found down 6 hours later at home Elevated lactic acid from volume depletion Parkinsonian-like tremor CAD Colon cancer Hypothyroidism Severe debility Plan: Supportive care PT and OT IV fluid LEONARDO GRARIDO DO Jun 18, 2021 11:01
[2021-06-18 11:47] VITALS: BP 144/82
[2021-06-18] MEDS ORDERED: DOMPERIDONE 10 MG PO SCH (12:00)
[2021-06-18] MEDS ORDERED: HYDROCORTISONE 5 MG PO SCH (12:00)
[2021-06-18] MEDS ORDERED: NON-FORMULARY MEDICATION 1 EA EA (Cyanocobalamin (Vitamin B-12) (Vitamin B-12) 500 MCG) PO SCH (12:00)
--- NOTE | 2021-06-18 12:05 | Occ Therapy Progress Note ---
Therapy Progress Note Pt discharged prior to OT evaluation being complete. D/C from OT DEN OWENS OT Jun 18, 2021 12:05
[2021-06-18] MEDS ORDERED: LEVODOPA PO SCH (13:00)
[2021-06-18] MEDS ORDERED: [UNRECOGNIZED DRUG - OTHER] PO SCH (13:00)
[2021-06-18] MEDS ORDERED: CARBIDOPA PO SCH (13:00)
--- NOTE | 2021-06-18 13:11 | Progress Note ---
RADU DANIELS MED STUDENT 06/18/21 1311: Progress Note Mr. Montes is a 71yo male that presented to the ED on the previous day due to weakness. He had tried to get out of bed and was not able to stand up. He ended up lying on the floor for hours until his found him. He had recently been started on sinemet a few days prior and had also gotten a covid booster as well as his shingles shot the previous day. He was admitted to the hospital. He did have some anemia and hyponatremia which is chronic for him. After a night of fluids and rest he was very much improved the second day. He was much more alert and felt stronger and ready to go home. He was given the option to go to a correction but he and his feel hes good enough to go home. He was advised that he can continue to keep taking his medications. He was also discharged with some home PT. Supervisory-Addendum Brief Verification & Attestation Participated in pt care: history, physical Personally performed: exam, history Care discussed with: Medical Student Procedures: n/a n/a STELLA GARRIDO DO 06/19/21 0706: Supervisory-Addendum Brief Verification & Attestation Participated in pt care: history, MDM, physical Personally performed: exam, history, MDM, supervision of care Care discussed with: Medical Student Procedures: n/a Results interpretation: Verified all documentation Verification and Attestation of Medical Student E/M Service A medical student performed and documented this service in my presence. I reviewed and verified all information documented by the medical student and made modifications to such information, when appropriate. I personally performed the physical exam and medical decision making. Stella Garrido, Jun 19, 2021,07:06 RADU DANIELS MED STUDENT Jun 18, 2021 13:11 STELLA GARRIDO DO Jun 19, 2021 07:06
[2021-06-18] MEDS ORDERED: FERROUS SULF 325 MG (IRON) TAB PO SCH (15:00)
[2021-06-18] MEDS ORDERED: ASPIRIN E.C. 81 MG (ECOTRIN) TAB PO SCH (15:00)
[2021-06-18] MEDS ORDERED: HYDROCORTISONE 2.5 MG PO SCH (15:00)
[2021-06-18] MEDS ORDERED: GABAPENTIN 300 MG (NEURONTIN) CAP PO SCH (18:00)
[2021-06-18] MEDS ORDERED: NON-FORMULARY MEDICATION 1 EA EA (Metformin HCl 1,000 MG) PO SCH (18:00)
[2021-06-18] MEDS ORDERED: RANOLAZINE ER 500 MG TAB (RANEXA) PO SCH (18:00)
[2021-06-18] MEDS ORDERED: NON-FORMULARY MEDICATION 1 EA EA (Metronidazole 1 APPLIC) TP SCH (19:00)
[2021-06-18] MEDS ORDERED: LOTEPREDNOL ETABONATE OU SCH (19:00)
[2021-06-19] MEDS ORDERED: CLOPIDOGREL 75 MG (PLAVIX) TABLET PO SCH (09:00)
[2021-06-19] MEDS ORDERED: AZELAIC ACID TP SCH (09:00)
[2021-06-19] MEDS ORDERED: LEVOTHYROXINE 112 MCG (LEVOTHROID) TAB PO SCH (09:00)
[2021-06-19] MEDS ORDERED: PANTOPRAZOLE 40 MG (PROTONIX) TAB PO SCH (09:00)
[2021-06-19] MEDS ORDERED: NON-FORMULARY MEDICATION 1 EA EA (Hydrocortisone 10 MG) PO SCH (09:00)
--- NOTE | 2021-06-21 13:29 | Physician Query Clarification ---
PQ-Uncertain Diagnosis Admission/Discharge Admission Date: Jun 17, 2021 at 12:00 Discharge Date: Jun 18, 2021 at 11:48 Dr. Dempsey, The medical record reflects the following clinical scenario: History/Risk Factors: generalized weakness, lactic acidosis, syncope, hyponatremia, dehydration Clinical Findings: BUN/CR 19/1.31 > 15/1.25 Treatment: IVF Question: Is EVARISTO a clinically valid diagnosis? EVARISTO was documented in the H&P with no further documentation in the medical record. Please document a response in Progress Note or Discharge Summary. 1. Yes, clinically valid, condition resolved. 2. No, condition ruled out. 3. Other, with explanation of clinical findings. 4. Undetermined, no explanation for clinical findings. PHYSICIAN RESPONSE Diagnosis clinically valid: Yes, Conditon resolved Please remember a lack of response to the above will prompt a phone page by [facility]/Coding staff. In responding to this query, please exercise your independent professional judgment. The purpose of this communication is to more accurately reflect the complexity of your patients condition. The fact that a question is asked does not imply that any particular answer is desired or expected. Thank you for your timely response to this clarification. Requestors name: Renato THIS PHYSICIAN QUERY FORM IS A PERMANENT PART OF THE MEDICAL RECORD RENATO ERICKSON Jun 21, 2021 13:29 LEONARDO DEMPSEY DO Jun 21, 2021 20:30
== END 2021-06-18 11:48 | disposition home or self-care (01) | DRG 683 ==
LOC: EDUNIT# 08:17 → ER FS 08:20 → 4TH 12:00
PROVIDERS: ADMIT Internal Medicine; ATTEND Internal Medicine
DX: N17.9 Acute kidney failure, unspecified (principal); E87.1 Hypo-osmolality and hyponatremia; E87.2 Acidosis; R53.1 Weakness; R55 Syncope and collapse; G20 Parkinson's disease; R62.7 Adult failure to thrive; Z68.21 Body mass index [BMI] 21.0-21.9, adult; E86.0 Dehydration; E11.9 Type 2 diabetes mellitus without complications; I10 Essential (primary) hypertension; E78.00 Pure hypercholesterolemia, unspecified; I25.10 Atherosclerotic heart disease of native coronary artery without angina pectoris; H54.3 Unqualified visual loss, both eyes; D64.9 Anemia, unspecified; K59.00 Constipation, unspecified; I66.9 Occlusion and stenosis of unspecified cerebral artery; Z86.711 Personal history of pulmonary embolism; Z86.73 Personal history of transient ischemic attack (TIA), and cerebral infarction without residual deficits; Z95.5 Presence of coronary angioplasty implant and graft; Z85.038 Personal history of other malignant neoplasm of large intestine; Z88.8 Allergy status to other drugs, medicaments and biological substances; Z79.84 Long term (current) use of oral hypoglycemic drugs; Z79.02 Long term (current) use of antithrombotics/antiplatelets; Z79.82 Long term (current) use of aspirin; R00.0 Tachycardia, unspecified; Z82.49 Family history of ischemic heart disease and other diseases of the circulatory system; Z80.0 Family history of malignant neoplasm of digestive organs; Z83.3 Family history of diabetes mellitus; Z82.1 Family history of blindness and visual loss
CPT/HCPCS: 36415; 70450; 71045; 80053; 81000; 82550; 83605; 83690; 83880; 84484; 85007; 85025; 85027; 85610; 85730; 93005; G0378

== ENCOUNTER → 2021-09-13 | Outpatient (RCR) | payer MEDICARE ==
[2021-08-26 14:28] LABS: BASOPHILS % (AUTO) 0 % (0-10); EOSINOPHILS # (AUTO) 0.2 10^3/uL (0.0-0.3); EOSINOPHILS % (AUTO) 3 % (0-10); HEMATOCRIT 32 % (40-54); HEMOGLOBIN 10.5 g/dL (13.3-17.7); LYMPHOCYTES # (AUTO) 1.4 10^3/uL (1.0-4.0); LYMPHOCYTES % (AUTO) 18 % (12-44); MEAN CORPUSCULAR HEMOGLOBIN 30 pg (25-34); MEAN CORPUSCULAR HGB CONC 32 g/dL (32-36); MEAN CORPUSCULAR VOLUME 94 fL (80-99); MEAN PLATELET VOLUME 9.6 fL (9.0-12.2); MONOCYTES # (AUTO) 0.4 10^3/uL (0.0-1.0); MONOCYTES % (AUTO) 5 % (0-12); NEUTROPHILS # (AUTO) 5.8 10^3/uL (1.8-7.8); NEUTROPHILS % (AUTO) 73 % (42-75); PLATELET COUNT 294 10^3/uL (130-400); WHITE BLOOD COUNT 7.9 10^3/uL (4.3-11.0)
[2021-08-26 14:57] LABS: ALBUMIN 3.7 GM/DL (3.2-4.5); BILIRUBIN,TOTAL 0.3 MG/DL (0.1-1.0); CALCIUM 8.7 MG/DL (8.5-10.1); CREATININE SERUM 1.58 MG/DL (0.60-1.30); POTASSIUM 4.3 MMOL/L (3.6-5.0); TOTAL PROTEIN 6.9 GM/DL (6.4-8.2)
[~2021-09-13] MED LIST changes: +ACET-2267 PO; +ALIR75PE5 INJ; +CARB1TAB40 PO; +FLUC100T10 PO; -FLUC100T6 PO; +LEVO112T68 PO; +SEMA1PEN3 IJ
== END | disposition home or self-care (01) ==
LOC: ONC 08-26 13:59
PROVIDERS: ATTEND Internal Medicine Hematology & Oncology
DX: Z45.2 Encounter for adjustment and management of vascular access device (principal); I10 Essential (primary) hypertension; E11.9 Type 2 diabetes mellitus without complications; I25.10 Atherosclerotic heart disease of native coronary artery without angina pectoris; Z90.49 Acquired absence of other specified parts of digestive tract; Z85.51 Personal history of malignant neoplasm of bladder; Z80.9 Family history of malignant neoplasm, unspecified
CPT/HCPCS: 36591; 80053; 82728; 83540; 83550; 85025; 99213

== ENCOUNTER 2021-09-24 09:16 | Emergency (ER) | payer MEDICARE ==
[~2021-09-24] VITALS: Ht 190.5 cm; Wt 77.1 kg
--- NOTE | 2021-09-24 09:45 | ED Neurological Problem ---
General Stated Complaint: TIA History of Present Illness Date Seen by Provider: Sep 24, 2021 Time Seen by Provider: 09:19 Initial Comments 71-year-old male with past medical history of TIA/stents in 2017/diabetes mellitus/Parkinson's/bladder cancer and colon cancer with colon resection in October 2020/and anemia, is brought in by EMS with complaints of syncope which occurred at 8:40 AM today morning. Patient was getting dressed when he felt lightheaded and almost collapsed but his caught him. Patient did not have any head strike. Denies fever, chest pain, palpitations, URI symptoms, abdominal pain, diarrhea, dysuria, extremity weakness, sensory loss, neck pain, or headache. Patient has been feeling lightheaded and nauseous since then. He has not had any breakfast or any fluids orally since then. In the ER patient is nauseated and vomited once due to feeling extremely lightheaded when he sat up. Patient is able to speak and give a history although he seems a little bit confused. He is able to state his name and age and location, however he was a little confused at the year and the month but ultimately got that answer correct. Allergies and Home Medications Allergies Coded Allergies: oxaliplatin (Verified Allergy, Intermediate, 05/14/20) Patient Home Medication List Home Medication List Reviewed: Yes Acetaminophen (Tylenol Extra Strength) 500 Mg Tablet, 500-1,000 MG PO Q8H PRN for PAIN-MILD (1-4), (Reported) Entered as Reported by: YANNI DIAMOND on 06/18/21 0858 Alirocumab (Praluent Pen) 75 Mg/1 Ml Pen.injctr, 75 MG INJ EVERY 2 WEEKS, (Reported) Entered as Reported by: YANNI DIAMOND on 06/18/21 0858 Aspirin (Lo-Dose Aspirin EC) 81 Mg Tablet.dr, 81 MG PO 1500, (Reported) Entered as Reported by: CANDIDA CENTENO on 07/26/18 1416 Azelaic Acid (Finacea) 50 Gm Gel..gram., 1 APPLIC TP DAILY, (Reported) Entered as Reported by: MALIKA HENRY on 10/04/18 1204 Carbidopa/Levodopa (Carbidopa-Levo ER 25-100 Tab) 1 Each Tablet.er, 1 EA PO TID, (Reported) Entered as Reported by: YANNI DIAMOND on 06/18/21 0858 Chlorpheniramine Maleate (Chlorpheniramine Maleate) 4 Mg Tablet, 4 MG PO BID PRN for ALLERGY SYMPTOMS, (Reported) Entered as Reported by: CANDIDA CENTENO on 12/05/18 0935 Clopidogrel Bisulfate (Clopidogrel) 75 Mg Tablet, 75 MG PO DAILY, (Reported) Entered as Reported by: YANNI DIAMOND on 06/18/21 0858 Cyanocobalamin (Vitamin B-12) (Vitamin B-12) 500 Mcg Tablet, 500 MCG PO 1200, (Reported) Entered as Reported by: YANNI DIAMOND on 05/14/20 1551 Docusate Sodium (Docusate Sodium) 100 Mg Capsule, 100 MG PO DAILY PRN for CONSTIPATION-1ST LINE, (Reported) Entered as Reported by: YANNI DIAMOND on 05/14/20 155 Ferrous Sulfate (Iron) 325 Mg Tablet, 325 MG PO 1500,2200, (Reported) Entered as Reported by: ALISON CENTENO on 05/16/21 154 Fludrocortisone Acetate (Fludrocortisone Acetate) 0.1 Mg Tab, 0.1 MG PO MON,MON W/BREAKFAST, (Reported) Entered as Reported by: ALISON CENTENO on 05/16/21 154 Fludrocortisone Acetate (Fludrocortisone Acetate) 0.1 Mg Tab, 0.05 MG PO SUN,,,TH,SAT W/BREAKFAST, (Reported) Entered as Reported by: ALISON CENTENO on 05/16/21 154 Fluticasone Propionate (Flonase Allergy Relief) 9.9 Ml [place].susp, 2 SPRAY NS DAILY PRN for CONGESTION, (Reported) Entered as Reported by: CANDIDA CENTENO on 10/04/18 1437 Gabapentin (Neurontin) 300 Mg Capsule, 300 MG PO 1800, (Reported) Entered as Reported by: YANNI DIAMOND on 05/14/20 1548 Hydrocortisone (Hydrocortisone) 10 Mg Tablet, 10 MG PO DAILY, (Reported) Entered as Reported by: CIERRA SAMANIEGO on 11/25/19 1627 Hydrocortisone (Hydrocortisone) 10 Mg Tablet, 5 MG PO 1200, (Reported) Entered as Reported by: CIERRA SAMANIEGO on 11/25/19 1627 Hydrocortisone (Hydrocortisone) 10 Mg Tablet, 2.5 MG PO 1500, (Reported) Entered as Reported by: CIERRA SAMANIEGO on 11/25/19 1627 Levothyroxine Sodium (Euthyrox) 112 Mcg Tablet, 112 MCG PO DAILY, (Reported) Entered as Reported by: YANNI DIAMOND on 06/18/21 0858 Loteprednol Etabonate (Lotemax Sm) 5 Gm Drops.gel, 1 DROP OU 1900, (Reported) Entered as Reported by: YANNI DIAMOND on 05/14/20 1548 Metformin HCl (Metformin HCl) 1,000 Mg Tablet, 1,000 MG PO BID WITH MEALS, (Reported) Entered as Reported by: OLIVER HOFFMANN on 09/14/20 1318 Metronidazole (Metronidazole) 45 Gm Cream..g., 1 APPLIC TP 1900, (Reported) Entered as Reported by: MALIKA HENRY on 10/04/18 1204 Nitroglycerin (Nitroglycerin) 0.4 Mg Tab.subl, 0.4 MG SL UD PRN for CHEST PAIN, (Reported) Entered as Reported by: YANNI DIAMOND on 05/17/21 1521 Pantoprazole Sodium (Pantoprazole Sodium) 40 Mg Tablet.dr, 40 MG PO 1200 W/MEAL, (Reported) Entered as Reported by: YANNI DIAMOND on 06/18/21 0858 Pimecrolimus (Elidel) 30 Gm Cream.gm., 1 APPLIC TP DAILY PRN for PSORIASIS, (Reported) Entered as Reported by: MALIKA HENRY on 10/04/18 1204 Ranolazine (Ranolazine ER) 500 Mg Tab.er.12h, 500 MG PO BID WITH MEALS, (Reported) Entered as Reported by: OLIVER HOFFMANN on 10/19/20 1432 Semaglutide (Ozempic) 1 Mg/0.75 Ml Pen.injctr, 1 MG IJ WED, (Reported) Entered as Reported by: YANNI DIAMOND on 06/18/21 0858 [Domperidone] 10 TAB, 10 MG PO QIDACHS, (Reported) Entered as Reported by: YANNI DIAMOND on 05/14/20 1551 Review of Systems Review of Systems Constitutional: no symptoms reported Eyes: No Symptoms Reported Ears, Nose, Mouth, Throat: no symptoms reported Respiratory: no symptoms reported Cardiovascular: no symptoms reported Gastrointestinal: no symptoms reported Genitourinary: no symptoms reported Musculoskeletal: no symptoms reported Skin: no symptoms reported Psychiatric/Neurological: Other (light headed) Endocrine: No Symptoms Reported Hematologic/Lymphatic: No Symptoms Reported Past Erwiivl-Vrwabj-Kfikyj Hx Immunizations Up To Date Tetanus Booster (TDap): Unknown First/Initial COVID19 Vaccinat: YES Second COVID19 Vaccination Kwaku: YES Third COVID19 Vaccination Date: YES Seasonal Allergies Seasonal Allergies: No Past Medical History Surgery/Hospitalization HX: Recent TIA, DM, Colon Cancer Hx treated with hemicolectomy; Parkinson's like syndrome Surgeries: Yes (BLADDER SURGERY-CANCER, COLON RESECTION, PORT) Abdominal, Bladder Surgery, Bowel Surgery, Cardiac, Coronary Stent Respiratory: Yes Pulmonary Embolism Currently Using CPAP: No Currently Using BIPAP: No Cardiac: Yes (STENTS, ANGIOPLASTY 06/2018) Chronic Edema/Swelling, Coronary Artery Disease, High Cholesterol, Hypertension Neurological: No Parkinson's Disease Sexually Transmitted Disease: No HIV/AIDS: No Genitourinary: Yes (PAST HX BLADDER CA) Bladder Infection, Renal Failure Gastrointestinal: Yes (COLON CA) Gastroesophageal Reflux Musculoskeletal: No Arthritis, Chronic Back Pain Endocrine: Yes Hypothyroidsim HEENT: Yes (GLASSES) Cataract Loss of Vision: Bilateral Hearing Impairment: Denies Cancer: Yes Colon Did You Recieve Any Treatments: Yes What Type of Treatment Did You: Chemotherapy, Surgical Intervention Psychosocial: No Integumentary: Yes Psoriasis Blood Disorders: Yes (ANEMIA) Adverse Reaction/Blood Tranf: No (HAS HAD BLOOD WITH NO REACTION) Family Medical History Abdominal aortic aneurysm Cardiovascular disease Cataracts Colon cancer Diabetes mellitus Glaucoma Hypertension Myocardial infarction Respiratory disorder Thyroid disease Visual disorder CAD Over 55 Years Old Physical Exam Vital Signs Vital Signs - First Documented 09/24/21 09:18 Temp 35.8 Pulse 77 Resp 19 B/P (MAP) 118/63 (81) O2 Delivery Room Air Capillary Refill : Height, Weight, BMI Height: 6'3.00" Weight: 188lbs. 1.6oz. [id number]; 21.90 BMI Method:Estimated General Appearance: WD/WN, other (slightly confused) HEENT: PERRL/EOMI, normal ENT inspection, TMs normal, pharynx normal Neck: non-tender, full range of motion, supple, normal inspection Respiratory: chest non-tender, lungs clear, normal breath sounds, no accessory muscle use Cardiovascular: regular rate, rhythm, no edema Gastrointestinal: normal bowel sounds, non tender, soft Back: normal inspection, no vertebral tenderness Extremities: normal range of motion, non-tender, normal inspection, no pedal edema Neurologic/Psychiatric: info specialist II-XII nml as tested, no motor/sensory deficits, alert, normal mood/affect, other (AO x2.5, patient able to say name and location and age however had difficulty remembering the year and month but ultimately got it correct.) Crainal Nerves: normal hearing, normal speech, PERRL Coordination/Gait: normal finger to nose, negative Romberg's sign Motor/Sensory: no motor deficit, no sensory deficit, no pronator drift, negative Babinski's sign Skin: normal color Lymphatic: no adenopathy Stroke NIH Stroke Scale Assessment Select: Initial Level of Consciousness: 0=Alert (0), Level of Consciousness- Questions: 1=Answers one question (1), LOC Commands: 0=Performs both tasks (0), Gaze: Normal (0), Visual Leigh: 0=No visual loss (0), Facial Movement (Facial Paresis): 0=Normal symmetrical mnt (0), Motor Function-Arms Right: 0=No drift (0), Motor Function-Arms Left: 0=No drift (0), Motor Function-Legs Right: 0=No drift (0), Motor Function-Legs Left: 0=No drift (0), Limb Ataxia: 0=Absent (0), Sensory: 0=Normal:no loss (0), Best Language: 0=No aphasia (0), Dysarthria: 0=Normal (0), Extinction & Inattention: 1=Visual,tactile,auditory (1), Total: 2 Stroke Thrombolytic Exclusion Age 18 or Over: Yes Acute intenal hemorrhage: No History of CVA: No Uncontrolled Coagulation Defec: No Intracranial Hemorrhage: No Severe Hypertension: No GI or Bleed: No Subarachnoid Hemorrhage: No Intracranial Neoplasm/Aneurysm: No Oral Anticoagulants: Yes Surgery or Trauma: No Puncture of Non-Compressible V: No Recent CPR: No Diabetic Hemorrhagic Retinopat: No Organ Biopsy: No Recent Obstetric Delivery: No Glucose: No Significant Hepatic Dysfunctio: No NIH Stoke Scale >22: No Bacterial Endocarditis: No Pericarditis: No Improving Symptoms: Yes Platelets: No Progress/Results/Core Measures Results/Orders Lab Results Laboratory Tests Test 09/24/21 09:21 09/24/21 12:50 Range/Units White Blood Count 9.5 4.3-11.0 10^3/uL Red Blood Count 3.83 L 4.30-5.52 10^6/uL Hemoglobin 11.6 L 13.3-17.7 g/dL Hematocrit 35 L 40-54 % Mean Corpuscular Volume 90 80-99 fL Mean Corpuscular Hemoglobin 30 25-34 pg Mean Corpuscular Hemoglobin Concent 34 32-36 g/dL Red Cell Distribution Width 13.1 10.0-14.5 % Platelet Count 285 130-400 10^3/uL Mean Platelet Volume 9.5 9.0-12.2 fL Immature Granulocyte % (Auto) 0 % Neutrophils (%) (Auto) 51 42-75 % Lymphocytes (%) (Auto) 33 12-44 % Monocytes (%) (Auto) 6 0-12 % Eosinophils (%) (Auto) 8 0-10 % Basophils (%) (Auto) 1 0-10 % Neutrophils # (Auto) 4.8 1.8-7.8 10^3/uL Lymphocytes # (Auto) 3.1 1.0-4.0 10^3/uL Monocytes # (Auto) 0.6 0.0-1.0 10^3/uL Eosinophils # (Auto) 0.8 H 0.0-0.3 10^3/uL Basophils # (Auto) 0.1 0.0-0.1 10^3/uL Immature Granulocyte # (Auto) 0.0 0.0-0.1 10^3/uL Prothrombin Time 12.8 12.2-14.7 SEC INR Comment 0.9 0.8-1.4 Activated Partial Thromboplast Time 21 L 24-35 SEC D-Dimer 1.15 H 0.00-0.49 UG/ML Sodium Level 130 L 135-145 MMOL/L Potassium Level 3.7 3.6-5.0 MMOL/L Chloride Level 95 L 98-107 MMOL/L Carbon Dioxide Level 22 21-32 MMOL/L Anion Gap 13 5-14 MMOL/L Blood Urea Nitrogen 17 7-18 MG/DL Creatinine 1.42 H 0.60-1.30 MG/DL Estimat Glomerular Filtration Rate 52 BUN/Creatinine Ratio 12 Glucose Level 311 H 70-105 MG/DL Calcium Level 9.1 8.5-10.1 MG/DL Corrected Calcium 9.2 8.5-10.1 MG/DL Total Bilirubin 0.2 0.1-1.0 MG/DL Aspartate Amino Transf (AST/SGOT) 14 5-34 U/L Alanine Aminotransferase (ALT/SGPT) 5 0-55 U/L Alkaline Phosphatase 83 40-136 U/L Troponin I < 0.30 <0.30 NG/ML Total Protein 7.0 6.4-8.2 GM/DL Albumin 3.9 3.2-4.5 GM/DL Urine Color YELLOW Urine Clarity CLEAR Urine pH 7.0 5-9 Urine Specific [place] 1.010 L 1.016-1.022 Urine Protein NEGATIVE NEGATIVE Urine Glucose (UA) 3+ H NEGATIVE Urine Ketones NEGATIVE NEGATIVE Urine Nitrite NEGATIVE NEGATIVE Urine Bilirubin NEGATIVE NEGATIVE Urine Urobilinogen 0.2 < = 1.0 MG/DL Urine Leukocyte Esterase NEGATIVE NEGATIVE Urine RBC (Auto) NEGATIVE NEGATIVE Urine RBC NONE /HPF Urine WBC RARE /HPF Urine Squamous Epithelial Cells RARE /HPF Urine Crystals NONE /LPF Urine Bacteria NEGATIVE /HPF Urine Casts PRESENT /LPF Urine Hyaline Casts 2-5 H /LPF Urine Mucus NEGATIVE /LPF Urine Culture Indicated NO My Orders Orders - CLARISSE FRYE MD Cbc With Automated Diff (09/24/21 09:35) Protime With Inr (09/24/21 09:35) Partial Thromboplastin Time (09/24/21 09:35) Comprehensive Metabolic Panel (09/24/21:35) Fibrin Degradation Products (09/24/21 09:35) Troponin I Fs (09/24/21 09:35) Ua Culture If Indicated (09/24/21 09:35) Chest 1 View Ap/Pa Only (09/24/21:35) Ekg Tracing (09/24/21:35) Nothing By Mouth (09/24/21 Lunch) Accucheck Stat ONCE (09/24/21 09:35) Ed Iv/Invasive Line Start (09/24/21 09:35) Vital Signs Stroke Patient Q15M (09/24/21 09:35) Ct Head Wo-R/O Stroke (09/24/21 09:35) O2 (09/24/21 09:35) Intake & Output 06,14,22 (09/24/21 09:35) Monitor-Rhythm Ecg Trace Only (09/24/21 09:35) Dysphagia Screening Tool Q10MX1 (09/24/21 09:35) Ondansetron Injection (Zofran Injectio (09/24/21 10:15) Ct Angio Head/Neck (09/24/21 10:25) Ct Angio Chest W (09/24/21 10:25) Ns Iv 1000 Ml (Sodium Chloride 0.9%) (09/24/21 10:45) Insulin (Regular) Human (Novolin R (Per (09/24/21 10:34) Iohexol Injection (Omnipaque 350 Mg/Ml 1 (09/24/21 11:00) Received Contrast (Hold Metformin- Contr (09/24/21 11:00) Ns (Ivpb) (Sodium Chloride 0.9% Ivpb Bag (09/24/21 11:00) Insulin (Regular) Human (Novolin R (Per (09/24/21 10:54) Iohexol Injection (Omnipaque 350 Mg/Ml 1 (09/24/21 11:15) Received Contrast (Hold Metformin- Contr (09/24/21 11:15) Ns (Ivpb) (Sodium Chloride 0.9% Ivpb Bag (09/24/21 11:15) Medications Given in ED Current Medications Medications Dose Ordered Sig/Rabia Route Start Time Stop Time Status Last Admin Dose Admin Iohexol 150 ml ONCE ONCE IV 09/24/21 11:15 09/24/21 11:16 DC 09/24/21 11:19 150 ML Ondansetron HCl 4 mg ONCE ONCE IVP 09/24/21 10:15 09/24/21 10:16 DC 09/24/21 10:18 4 MG Sodium Chloride 100 ml ONCE ONCE IV 09/24/21 11:15 09/24/21 11:16 DC 09/24/21 11:20 100 ML Vital Signs/I&O 09/24/21 09:18 Temp 35.8 Pulse 77 Resp 19 B/P (MAP) 118/63 (81) O2 Delivery Room Air Progress Progress Note : Progress Note 1. SYNCOPE: BILATERAL CAROTID ARTERY NARROWING - CT HEAD unremarkable - CTA HEAD: This results in less than 50% narrowing of the left internal carotid artery origin. There is 50 to 69% narrowing of the right internal carotid artery origin. Less than 50% narrowing of the V4 segment of the left vertebral artery. Approximately 50% narrowing of the bilateral vertebral artery origins. - Troponin normal - UA normal - EKG: unremarkable - Zofran and NS IVF given with improvement in nausea and vomiting. - Discussed with hospitalist at [facility], and she recommended to transfer to a facility with a vascular surgeon and neurologist who is able to manage the pt since [facility] does not have a neurologist, and also because pt has a complex PMH. - Called [facility] for transfer and vascular surgery consult. Discussed with Dr Clemens, hospitalist at [facility], and will be admitted to Obs at [facility]. Accepting physician: Dr. Santos 2. ELEVATED D-DIMER: - D-dimer: 1.15 - CTA CHEST: PE ruled out 3. HYPERGLYCEMIA : - Blood sugar was 311, gave 3 units regular insulin Initial ECG Impression Date: Sep 24, 2021 Initial ECG Impression Time: 09:42 Initial ECG Rate: 78 Initial ECG Rhythm: Normal Sinus Initial ECG Intervals: OH (prolonged) Initial ECG Impression: Nonspecific Changes Diagnostic Imaging Diagonstic Imaging: Xray, CT Comments PROCEDURE: CT angiography of the head and CT angiography of the neck with and without contrast. TECHNIQUE: Contiguous noncontrast images were obtained from the skull base through the vertex. After intravenous contrast administration, helical CT angiography of the neck was performed. Source data was reformatted into 3D MIP projections. Delayed post contrast acquisition was also obtained. Auto Exposure Controls were utilized during the CT exam to meet ALARA standards for radiation dose reduction. INDICATION: Stroke. Neurologic symptoms. Syncope. COMPARISON: CT head without contrast 09/24/2021. FINDINGS: There remains no evidence of a large territorial infarction or intracranial hemorrhage on the postcontrast intracranial imaging. No hydrocephalus or extra-axial fluid collections. No abnormal intracranial enhancement. CTA demonstrates a left common carotid originating from the innominate. Moderate calcified atherosclerotic disease. This results in less than 50% narrowing of the left internal carotid artery origin. There is 50 to 69% narrowing of the right internal carotid artery origin. Less than 50% narrowing of the V4 segment of the left vertebral artery. Approximately 50% narrowing of the bilateral vertebral artery origins. The dural venous sinuses are normally opacified. No acute osseous findings. Mild mucosal thickening in the left maxillary sinus. Small right mastoid effusion. Visualized paravertebral soft tissues are unremarkable. Emphysematous changes in the lung apices. Partially visualized right tunneled port CVC. IMPRESSION: 1. No large vessel occlusion. 2. 50 to 69% narrowing of the right internal carotid artery origin due to atherosclerotic disease. Left substantial degrees of arterial narrowing as above. 3. No aneurysm or dissection involving major arteries in the head and neck. Dictated by: Dictated on workstation # [id number] Dict: 09/24/21 1147 Trans: 09/24/21 1157 CVB [id number] Interpreted by: SHIRA SANTOS MD Electronically signed by: SHIRA SANTOS MD 09/24/21 1157 NAME: HETAL HERNANDEZ [facility] REC#: [id number] PT STATUS: REG ER : 1950 PHYSICIAN: CLARISSE FRYE MD ADMIT DATE: 09/24/21/ER FS Draft Date of Exam:09/24/21 CT ANGIO CHEST W EXAMINATION: CT angiography of the chest. TECHNIQUE: Contrast enhanced thin section helical images were obtained through the chest with intravenous contrast timed for the optimal opacification of the arterial structures per CTA protocol. Post-processing, reconstructions and interpretation of angiographic images of the vessels was performed. 3D MIP reconstructions were performed and reviewed. All CT scans use one or more of the following dose optimizing techniques: automated exposure control, MA and/or KvP adjustment based on a patient size and exam type, or iterative reconstruction. HISTORY: elevated d-dimer COMPARISON: None available. FINDINGS: Vascular: No filling defects within the pulmonary arteries. Thoracic aorta is normal in caliber. Calcification of the aorta and coronary vessels. Thyroid: The thyroid is normal. Mediastinum: Heart size is normal without significant pericardial effusion. No suspicious lymphadenopathy. Lungs and airways: There are background emphysematous changes of lungs without consolidation, pleural effusion, or pneumothorax. The airways are normal. Upper abdomen: The subphrenic structures are normal. Musculoskeletal: Degenerative changes of the spine without suspicious osseous lesion or compression fracture. IMPRESSION: 1. No findings of pulmonary embolus or other acute abnormality in the chest. 2. COPD. Dictated on workstation # [id number] Dict: 09/24/21 1146 Trans: 09/24/21 1149 CVB [id number] Interpreted by: MARTINA DÍAZ DO Electronically signed by: JAMIA [facility] [place], [place] NAME: HETAL HERNANDEZ [facility] REC#: [id number] PT STATUS: REG ER : 1950 PHYSICIAN: CLARISSE FRYE MD ADMIT DATE: 09/24/21/ER FS Draft Date of Exam:09/24/21 CT HEAD WO-R/O STROKE PROCEDURE: CT head wo r/o stroke. TECHNIQUE: Multiple contiguous axial images were obtained through the brain without the use of intravenous contrast. Auto Exposure Controls were utilized during the CT exam to meet ALARA standards for radiation dose reduction. INDICATION: Syncope with nausea and vomiting. Comparison is made with prior head CT from 06/17/2021. Ventricles and sulci appear stable. There is moderate periventricular low attenuation consistent with chronic microvascular ischemia. There appears to be an old infarct in left white radiata however are not well seen on prior study from June. No sulcal effacement or midline shift is identified. No acute intra-axial or extra-axial hemorrhage is detected. Cisterns are patent. Visualized paranasal sinuses are clear. IMPRESSION: Chronic changes, as described. No acute intracranial process is detected. Dictated on workstation # [id number] Dict: 09/24/21 0959 Trans: 09/24/21 1003 CVB [id number] Interpreted by: MARBELLA MONSON MD Electronically signed by: JAMIA [facility] [place], [place] NAME: HETAL HERNANDEZ [facility] REC#: [id number] PT STATUS: REG ER : 1950 PHYSICIAN: CLARISSE FRYE MD ADMIT DATE: 09/24/21/ER FS Signed Date of Exam:09/24/21 CHEST 1 VIEW AP/PA ONLY EXAMINATION: Chest 1 view HISTORY: syncope COMPARISON: 06/17/2021 FINDINGS: Heart size and pulmonary vasculature are stable. A right-sided portacatheter is unchanged. Stable background chronic lung disease without new consolidation, pleural effusion, or pneumothorax. The osseous structures are intact. IMPRESSION: 1. No acute radiographic abnormality in the chest. Dictated by: Dictated on workstation # [id number] Dict: 09/24/21 0943 Trans: 09/24/21 1134 [id number] Interpreted by: MARTINA DÍAZ DO Electronically signed by: MARTINA DÍAZ DO 09/24/21 1134 Departure Impression Primary Impression: Syncope Qualified Codes: G90.01 - Carotid sinus syncope Additional Impressions: Elevated d-dimer Carotid artery stenosis Qualified Codes: I65.23 - Occlusion and stenosis of bilateral carotid arteries Disposition: HOME, SELF-CARE Condition: Stable Admissions Decision to Admit/Date: Sep 24, 2021 Time/Decision to Admit Time: 11:45 Transfer Transfer Reason: Exceeds level of care Time Spoke to Accepting Phy: 13:10 Transfer Progress Notes Discussed with Dr. Clemens, hospitalist in [facility] who accepted the pt to Obs. Accepting attending is Dr. Santos Transfer Facility: [facility] Method of Transfer: EMS Departure-Patient Inst. Referrals: EMIL RITTER MD (PCP/Family) Primary Care Physician CLARISSE FRYE MD Sep 24, 2021 09:44
[2021-09-24 09:47] LABS: BASOPHILS # (AUTO) 0.1 10^3/uL (0.0-0.1); BASOPHILS % (AUTO) 1 % (0-10); EOSINOPHILS # (AUTO) 0.8 10^3/uL (0.0-0.3); EOSINOPHILS % (AUTO) 8 % (0-10); HEMATOCRIT 35 % (40-54); HEMOGLOBIN 11.6 g/dL (13.3-17.7); LYMPHOCYTES # (AUTO) 3.1 10^3/uL (1.0-4.0); LYMPHOCYTES % (AUTO) 33 % (12-44); MEAN CORPUSCULAR HEMOGLOBIN 30 pg (25-34); MEAN CORPUSCULAR HGB CONC 34 g/dL (32-36); MEAN CORPUSCULAR VOLUME 90 fL (80-99); MEAN PLATELET VOLUME 9.5 fL (9.0-12.2); MONOCYTES # (AUTO) 0.6 10^3/uL (0.0-1.0); MONOCYTES % (AUTO) 6 % (0-12); NEUTROPHILS # (AUTO) 4.8 10^3/uL (1.8-7.8); NEUTROPHILS % (AUTO) 51 % (42-75); PLATELET COUNT 285 10^3/uL (130-400); WHITE BLOOD COUNT 9.5 10^3/uL (4.3-11.0)
--- NOTE | 2021-09-24 10:04 | Diagnostic Imaging Report ---
PROCEDURE: CT head wo r/o stroke. TECHNIQUE: Multiple contiguous axial images were obtained through the brain without the use of intravenous contrast. Auto Exposure Controls were utilized during the CT exam to meet ALARA standards for radiation dose reduction. INDICATION: Syncope with nausea and vomiting. Comparison is made with prior head CT from 06/17/2021. Ventricles and sulci appear stable. There is moderate periventricular low attenuation consistent with chronic microvascular ischemia. There appears to be an old infarct in left white radiata however are not well seen on prior study from June. No sulcal effacement or midline shift is identified. No acute intra-axial or extra-axial hemorrhage is detected. Cisterns are patent. Visualized paranasal sinuses are clear. IMPRESSION: Chronic changes, as described. No acute intracranial process is detected. Dictated by: Dictated on workstation # [id number]
[2021-09-24 10:06] LABS: INR 0.9 (0.8-1.4); PROTHROMBIN TIME PATIENT 12.8 SEC (12.2-14.7)
[2021-09-24 10:13] LABS: FIBRIN DEGRADATION PRODUCTS 1.15 UG/ML (0.00-0.49)
[2021-09-24] MEDS ORDERED: ONDANSETRON 4 MG/2 ML (SDV) Z0FRAN IVP ONE (10:15)
[2021-09-24 10:18] LABS: CARBON DIOXIDE 22 MMOL/L (21-32); CHLORIDE 95 MMOL/L (98-107); POTASSIUM 3.7 MMOL/L (3.6-5.0); SODIUM 130 MMOL/L (135-145)
[2021-09-24 10:19] LABS: ALANINE AMINOTRANSFERASE 5 U/L (0-55); ALBUMIN 3.9 GM/DL (3.2-4.5); ALKALINE PHOSPHATASE 83 U/L (40-136); BILIRUBIN,TOTAL 0.2 MG/DL (0.1-1.0); BUN/CREATININE RATIO 12; CALCIUM 9.1 MG/DL (8.5-10.1); CREATININE SERUM 1.42 MG/DL (0.60-1.30); GFR ESTIMATED 52; GLUCOSE 311 MG/DL (70-105)
[2021-09-24] MEDS ORDERED: inSUlin (REGULAR) HUMAN 1 UNIT/0.01 ML (CHARGE PER UNIT) SC STA (10:34)
[2021-09-24] MEDS ORDERED: NS IV 1000 ML 1,000 ML IV SCH (10:45)
[2021-09-24] MEDS ORDERED: inSUlin (REGULAR) HUMAN 1 UNIT/0.01 ML (CHARGE PER UNIT) IV STA (10:54)
[2021-09-24] MEDS ORDERED: HOLD METFORMIN - RECEIVED CONTRAST 20 ML VIAL IV SCH ×2 (11:00→11:15)
[2021-09-24] MEDS ORDERED: IOHEXOL 350 MG/ML 100 ML (OMNIPAQUE 350) VIAL IV ONE (11:00)
[2021-09-24] MEDS ORDERED: NS 100 ML (IVPB) BAG IV ONE ×2 (11:00→11:15)
[2021-09-24] MEDS ORDERED: IOHEXOL 350 MG/ML 150 ML (OMNIPAQUE 350) VIAL IV ONE (11:15)
--- NOTE | 2021-09-24 11:49 | Diagnostic Imaging Report ---
EXAMINATION: CT angiography of the chest. TECHNIQUE: Contrast enhanced thin section helical images were obtained through the chest with intravenous contrast timed for the optimal opacification of the arterial structures per CTA protocol. Post-processing, reconstructions and interpretation of angiographic images of the vessels was performed. 3D MIP reconstructions were performed and reviewed. All CT scans use one or more of the following dose optimizing techniques: automated exposure control, MA and/or KvP adjustment based on a patient size and exam type, or iterative reconstruction. HISTORY: elevated d-dimer COMPARISON: None available. FINDINGS: Vascular: No filling defects within the pulmonary arteries. Thoracic aorta is normal in caliber. Calcification of the aorta and coronary vessels. Thyroid: The thyroid is normal. Mediastinum: Heart size is normal without significant pericardial effusion. No suspicious lymphadenopathy. Lungs and airways: There are background emphysematous changes of lungs without consolidation, pleural effusion, or pneumothorax. The airways are normal. Upper abdomen: The subphrenic structures are normal. Musculoskeletal: Degenerative changes of the spine without suspicious osseous lesion or compression fracture. IMPRESSION: 1. No findings of pulmonary embolus or other acute abnormality in the chest. 2. COPD. Dictated by: Dictated on workstation # [id number]
--- NOTE | 2021-09-24 11:55 | Diagnostic Imaging Report ---
PROCEDURE: CT angiography of the head and CT angiography of the neck with and without contrast. TECHNIQUE: Contiguous noncontrast images were obtained from the skull base through the vertex. After intravenous contrast administration, helical CT angiography of the neck was performed. Source data was reformatted into 3D MIP projections. Delayed post contrast acquisition was also obtained. Auto Exposure Controls were utilized during the CT exam to meet ALARA standards for radiation dose reduction. INDICATION: Stroke. Neurologic symptoms. Syncope. COMPARISON: CT head without contrast 09/24/2021. FINDINGS: There remains no evidence of a large territorial infarction or intracranial hemorrhage on the postcontrast intracranial imaging. No hydrocephalus or extra-axial fluid collections. No abnormal intracranial enhancement. CTA demonstrates a left common carotid originating from the innominate. Moderate calcified atherosclerotic disease. This results in less than 50% narrowing of the left internal carotid artery origin. There is 50 to 69% narrowing of the right internal carotid artery origin. Less than 50% narrowing of the V4 segment of the left vertebral artery. Approximately 50% narrowing of the bilateral vertebral artery origins. The dural venous sinuses are normally opacified. No acute osseous findings. Mild mucosal thickening in the left maxillary sinus. Small right mastoid effusion. Visualized paravertebral soft tissues are unremarkable. Emphysematous changes in the lung apices. Partially visualized right tunneled port CVC. IMPRESSION: 1. No large vessel occlusion. 2. 50 to 69% narrowing of the right internal carotid artery origin due to atherosclerotic disease. Left substantial degrees of arterial narrowing as above. 3. No aneurysm or dissection involving major arteries in the head and neck. Dictated by: Dictated on workstation # [id number]
[2021-09-24 13:00] LABS: BILIRUBIN,URINE NEGATIVE (NEGATIVE); CLARITY,URINE CLEAR; COLOR,URINE YELLOW; GLUCOSE, URINE (UA) 3+ (NEGATIVE); KETONES,URINE NEGATIVE (NEGATIVE); LEUKOCYTE ESTERASE ,URINE NEGATIVE (NEGATIVE); NITRITE,URINE NEGATIVE (NEGATIVE); PROTEIN,URINE NEGATIVE (NEGATIVE)
[2021-09-24 13:22] LABS: BACTERIA,URINE NEGATIVE /HPF; SQUAMOUS EPITHELIAL CELL,UR RARE /HPF; WBC,URINE RARE /HPF
[2021-09-24 16:33] VITALS: BP 121/78
== END 2021-09-24 19:26 | disposition home or self-care (01) ==
LOC: EDUNIT# 09:16 → ER FS 09:17
DX: I65.23 Occlusion and stenosis of bilateral carotid arteries (principal); E11.65 Type 2 diabetes mellitus with hyperglycemia; G90.01 Carotid sinus syncope; R79.89 Other specified abnormal findings of blood chemistry; Z79.4 Long term (current) use of insulin
CPT/HCPCS: 36415; 70450; 70496; 70498; 71045; 71275; 80053; 81000; 82947; 84484; 85025; 85379; 85610; 85730; 93005; 93041; Q9967

== ENCOUNTER 2021-09-27 05:37 | Outpatient (CLI) | payer MEDICARE ==
[~2021-09-27] VITALS: Ht 190.5 cm; Wt 77.1 kg
[2021-09-27] MEDS ORDERED: SEMA1PEN3 SQ (13:32)
[2021-09-27] MEDS ORDERED: ALIR75PE5 SQ (13:32)
[2021-09-27] MEDS ORDERED: CARB-275 PO (13:32)
== END 2021-09-27 14:34 ==
LOC: PREOP 05:37
PROVIDERS: ATTEND Surgery
DX: Z01.818 Encounter for other preprocedural examination (principal)

== ENCOUNTER 2021-10-04 06:51 | Day surgery (SDC) | payer MEDICARE ==
[~2021-10-04] VITALS: Ht 190.5 cm; Wt 77.3 kg
[~2021-10-04 06:51] MED LIST changes: +ALIR75PE5 SQ; +CARB-275 PO; +SEMA1PEN3 SQ
[2021-10-04] MEDS ORDERED: LACTATED RINGERS 1,000 ML IV STA (07:04)
[2021-10-04] MEDS ORDERED: LACTATED RINGERS 1,000 ML IV ONE (07:08)
[2021-10-04] MEDS ORDERED: HURRICAINE EXT TUBE (BENZOCAINE) XX PRN (07:15)
[2021-10-04 07:21] VITALS: BP 155/88
[2021-10-04] MEDS ORDERED: MIDAZOLAM 2 MG/2 ML (VERSED) VIAL ONE (07:24)
[2021-10-04] MEDS ORDERED: PROPOFOL INJECTION 50 ML IV ONE (07:24)
--- NOTE | 2021-10-04 08:03 | Progress Note-Pre Operative ---
Pre-Operative Progress Note H&P Reviewed The H&P was reviewed, patient examined and no changes noted. Date Seen by Provider: Oct 04, 2021 Time Seen by Provider: 08:03 Date H&P Reviewed: Oct 04, 2021 Time H&P Reviewed: 08:03 Pre-Operative Diagnosis: iron def anemia, hx colon cancer SRIKANTH AGUILAR DO Oct 04, 2021 08:03
[2021-10-04 08:35] VITALS: BP 115/71
[2021-10-04 08:40] VITALS: BP 126/75
[2021-10-04 08:45] VITALS: BP_SYST 132; BP_DIAS 72; BP_DIAS 76
--- NOTE | 2021-10-04 08:55 | Progress Note-Post Operative ---
Post-Operative Progess Note Surgeon (s)/Transformation Manager (s) Surgeon SRIKANTH AGUILAR DO Transformation Manager: na Pre-Operative Diagnosis iron def anemia, hx colon cancer Post-Operative Diagnosis hiatal hernia, slight gastritis, inflammation at ileocolonic anastamosis Procedure & Operative Findings Date of Procedure 10/04/21 Procedure Performed/Findings egd c biopsy, colonoscopy c cold biopsy Anesthesia Type per field aide Estimated Blood Loss Estimated blood loss (mL): none Specimens/Packing Specimens Removed antrum, ileocolonic anastamosis SRIKANTH AGUILAR DO Oct 04, 2021 08:55
--- NOTE | 2021-10-04 08:57 | Discharge Inst-Simple/Standard ---
Discharge Inst-Standard Patient Instructions/Follow Up Plan of Care/Instructions/FU: 2 weeks [place] Activity as Tolerated: Yes Discharge Diet: Regular Diet (high fiber) SRIKANTH AGUILAR DO Oct 04, 2021 08:57
[2021-10-04 09:15] VITALS: BP 151/87
[2021-10-04 09:34] VITALS: BP 151/87
--- NOTE | 2021-10-04 09:55 | Anesthesia-General Post-Op ---
MAC Patient Condition Mental Status/LOC: Same as Preop Cardiovascular: Satisfactory Nausea/Vomiting: Absent Respiratory: Satisfactory Pain: Controlled Complications: Absent Post Op Complications Complications None Follow Up Care/Instructions Patient Instructions None needed. Anesthesiology Discharge Order Discharge Order Patient is doing well, no complaints, stable vital signs, no apparent adverse anesthesia problems. No complications reported per nursing. DONNIE SMART CRNA Oct 04, 2021 09:55
--- NOTE | 2021-10-05 10:59 | OPERATIVE REPORT ---
DATE OF SERVICE: 10/04/2021 PREOPERATIVE DIAGNOSIS: Iron deficiency anemia and history of colon cancer. POSTOPERATIVE DIAGNOSES: Hiatal hernia, slight gastritis, inflammation of the ileocolonic anastomosis. PROCEDURES PERFORMED: EGD with biopsy, colonoscopy with cold biopsy. SURGEON: Srikanth Osorio DO. ANESTHESIA: Per [facility]. ESTIMATED BLOOD LOSS: None. COMPLICATIONS: None. SPECIMENS: Antrum and ileocolonic anastomosis. INDICATIONS FOR PROCEDURE: The patient is a 71-year-old male with history of colon cancer and has recent iron deficiency anemia. He understands the risks and benefits of the procedure and wished to proceed. Consent was signed in the chart. DESCRIPTION OF PROCEDURE: The patient was taken to the endoscopy suite and placed in the left lateral recumbent position. Timeout was performed. Scope was inserted in mouth, down the esophagus, stomach and into the duodenum without difficulty. No polyps, masses or ulcerations within the duodenum. Scope was slowly retracted back into the stomach, where it was further insufflated. Slight evidence of gastritis was present in the antrum. Biopsy of the antrum was obtained. No polyps, masses or ulcerations. Scope was retroflexed noting a small hiatal hernia. Scope was returned to its normal position, slowly withdrawn to distal esophagus in normal appearance. Scope was slowly retracted back until completely removed, noting no other pathology. Digital rectal exam was performed. No palpable polyps, masses or ulcerations. Scope was inserted in the rectum and advanced all the way to the ileocolonic anastomosis. Prep was adequate with irrigation and suction. Scope was then slowly retracted back to the ileocolonic anastomosis, some inflammation present. A biopsy of this area was obtained. Scope was slowly retracted back. No polyps, masses or ulcerations in the remainder of the ascending, transverse, descending, and sigmoid colon. Once in the rectum, scope was retroflexed noting no other pathology. Scope was returned to its normal position, slowly withdrawn until completely removed. The patient tolerated the procedure well without any complications and taken to the recovery room in stable condition. RECOMMENDATIONS: The patient will follow up in the office in a couple of weeks to discuss pathology results. Any change in condition, he should be reevaluated at that time. The patient will need a repeat colonoscopy in 3to 5 years. Job ID: [id number] DocumentID: [id number] Dictated Date: 10/05/2021 08:05:41 Compounding And Finishing Supervisor Date: 10/05/2021 10:58:09 Dictated By: SRIKANTH OSORIO DO
== END 2021-10-04 09:33 | disposition home or self-care (01) ==
LOC: ENDO 06:51
PROVIDERS: ATTEND Surgery
DX: D50.9 Iron deficiency anemia, unspecified (principal); K91.89 Other postprocedural complications and disorders of digestive system; K29.70 Gastritis, unspecified, without bleeding; K63.89 Other specified diseases of intestine; K44.9 Diaphragmatic hernia without obstruction or gangrene; Z85.038 Personal history of other malignant neoplasm of large intestine; Z98.0 Intestinal bypass and anastomosis status; Z87.891 Personal history of nicotine dependence; Z79.02 Long term (current) use of antithrombotics/antiplatelets
CPT/HCPCS: 82947; 88305

== ENCOUNTER 2021-10-18 10:15 | Outpatient (RCR) | payer MEDICARE ==
[2021-10-18 11:38] LABS: BASOPHILS # (AUTO) 0.1 10^3/uL (0.0-0.1); BASOPHILS % (AUTO) 1 % (0-10); EOSINOPHILS # (AUTO) 0.3 10^3/uL (0.0-0.3); EOSINOPHILS % (AUTO) 3 % (0-10); HEMATOCRIT 35 % (40-54); HEMOGLOBIN 11.4 g/dL (13.3-17.7); LYMPHOCYTES # (AUTO) 1.9 10^3/uL (1.0-4.0); LYMPHOCYTES % (AUTO) 19 % (12-44); MEAN CORPUSCULAR HEMOGLOBIN 30 pg (25-34); MEAN CORPUSCULAR HGB CONC 33 g/dL (32-36); MEAN CORPUSCULAR VOLUME 90 fL (80-99); MEAN PLATELET VOLUME 9.2 fL (9.0-12.2); MONOCYTES # (AUTO) 0.6 10^3/uL (0.0-1.0); MONOCYTES % (AUTO) 6 % (0-12); NEUTROPHILS # (AUTO) 7.1 10^3/uL (1.8-7.8); NEUTROPHILS % (AUTO) 71 % (42-75); PLATELET COUNT 310 10^3/uL (130-400)
[2021-10-18 11:59] LABS: ALBUMIN 3.9 GM/DL (3.2-4.5); BILIRUBIN,TOTAL 0.3 MG/DL (0.1-1.0); CALCIUM 9.3 MG/DL (8.5-10.1); CREATININE SERUM 1.61 MG/DL (0.60-1.30); TOTAL PROTEIN 7.4 GM/DL (6.4-8.2)
== END 2021-11-13 | disposition home or self-care (01) ==
LOC: ONC 10:15
PROVIDERS: ATTEND Internal Medicine Hematology & Oncology
DX: C18.2 Malignant neoplasm of ascending colon (principal); D50.9 Iron deficiency anemia, unspecified; I10 Essential (primary) hypertension; E11.9 Type 2 diabetes mellitus without complications; I25.10 Atherosclerotic heart disease of native coronary artery without angina pectoris; Z90.49 Acquired absence of other specified parts of digestive tract; Z85.51 Personal history of malignant neoplasm of bladder; Z95.5 Presence of coronary angioplasty implant and graft
CPT/HCPCS: 80053; 82378; 82728; 83540; 83550; 85025; G0463; 36415; 99213

== ENCOUNTER 2021-11-29 13:22 | Outpatient (RCR) | payer MEDICARE ==
[~2021-11-29 13:22] MED LIST changes: +FERRIC CARBOXYMALTOSE INJ 750 MG in NS (IVPB) 250 ML IV SCH
== END 2021-12-14 | disposition home or self-care (01) ==
LOC: ONC 13:22
PROVIDERS: ATTEND Internal Medicine Hematology & Oncology
DX: C18.2 Malignant neoplasm of ascending colon (principal); D50.9 Iron deficiency anemia, unspecified; I10 Essential (primary) hypertension; E11.9 Type 2 diabetes mellitus without complications; I25.10 Atherosclerotic heart disease of native coronary artery without angina pectoris; Z90.49 Acquired absence of other specified parts of digestive tract; Z85.51 Personal history of malignant neoplasm of bladder; Z95.5 Presence of coronary angioplasty implant and graft
CPT/HCPCS: 96365; 99213

== ENCOUNTER 2022-02-10 13:52 | Outpatient (RCR) | payer MEDICARE ==
[~2022-02-10 13:52] MED LIST changes: -FERRIC CARBOXYMALTOSE INJ 750 MG in NS (IVPB) 250 ML IV SCH
[2022-02-10 14:13] LABS: BASOPHILS % (AUTO) 0 % (0-10); EOSINOPHILS # (AUTO) 0.1 10^3/uL (0.0-0.3); EOSINOPHILS % (AUTO) 2 % (0-10); HEMATOCRIT 36 % (40-54); HEMOGLOBIN 12.1 g/dL (13.3-17.7); LYMPHOCYTES # (AUTO) 1.6 10^3/uL (1.0-4.0); LYMPHOCYTES % (AUTO) 22 % (12-44); MEAN CORPUSCULAR HEMOGLOBIN 31 pg (25-34); MEAN CORPUSCULAR HGB CONC 34 g/dL (32-36); MEAN CORPUSCULAR VOLUME 92 fL (80-99); MEAN PLATELET VOLUME 9.3 fL (9.0-12.2); MONOCYTES # (AUTO) 0.4 10^3/uL (0.0-1.0); MONOCYTES % (AUTO) 6 % (0-12); NEUTROPHILS % (AUTO) 70 % (42-75); PLATELET COUNT 222 10^3/uL (130-400); WHITE BLOOD COUNT 7.2 10^3/uL (4.3-11.0)
[2022-02-10 14:33] LABS: ALBUMIN 4.1 GM/DL (3.2-4.5); BILIRUBIN,TOTAL 0.4 MG/DL (0.1-1.0); CALCIUM 9.4 MG/DL (8.5-10.1); CREATININE SERUM 1.51 MG/DL (0.60-1.30); TOTAL PROTEIN 7.2 GM/DL (6.4-8.2)
== END 2022-02-13 | disposition home or self-care (01) ==
LOC: ONC 13:52
PROVIDERS: ATTEND Internal Medicine Hematology & Oncology
DX: C18.2 Malignant neoplasm of ascending colon (principal); I10 Essential (primary) hypertension; E11.9 Type 2 diabetes mellitus without complications; I25.10 Atherosclerotic heart disease of native coronary artery without angina pectoris; D50.9 Iron deficiency anemia, unspecified; Z90.49 Acquired absence of other specified parts of digestive tract; Z85.51 Personal history of malignant neoplasm of bladder; Z95.5 Presence of coronary angioplasty implant and graft
CPT/HCPCS: 36415; 80053; 82378; 82728; 83540; 83550; 85025

== ENCOUNTER 2022-02-17 09:16 | Outpatient (RCR) | payer MEDICARE ==
[~2022-02-17 09:16] MED LIST changes: +LEVO-55 PO; -LEVO500T81 PO
== END 2022-03-16 | disposition home or self-care (01) ==
LOC: ONC 09:16
PROVIDERS: ATTEND Internal Medicine Hematology & Oncology
DX: Z45.2 Encounter for adjustment and management of vascular access device (principal); C18.9 Malignant neoplasm of colon, unspecified; D50.9 Iron deficiency anemia, unspecified; I25.10 Atherosclerotic heart disease of native coronary artery without angina pectoris; E11.9 Type 2 diabetes mellitus without complications; I10 Essential (primary) hypertension; Z79.899 Other long term (current) drug therapy
CPT/HCPCS: 36591; 99213

== ENCOUNTER 2022-05-12 14:46 | Outpatient (RCR) | payer MEDICARE ==
[2022-05-12 15:23] LABS: BASOPHILS % (AUTO) 0 % (0-10); EOSINOPHILS # (AUTO) 0.1 10^3/uL (0.0-0.3); EOSINOPHILS % (AUTO) 1 % (0-10); HEMATOCRIT 35 % (40-54); HEMOGLOBIN 11.5 g/dL (13.3-17.7); LYMPHOCYTES % (AUTO) 9 % (12-44); MEAN CORPUSCULAR HEMOGLOBIN 31 pg (25-34); MEAN CORPUSCULAR HGB CONC 33 g/dL (32-36); MEAN CORPUSCULAR VOLUME 94 fL (80-99); MEAN PLATELET VOLUME 9.5 fL (9.0-12.2); MONOCYTES # (AUTO) 0.3 10^3/uL (0.0-1.0); MONOCYTES % (AUTO) 3 % (0-12); NEUTROPHILS # (AUTO) 9.2 10^3/uL (1.8-7.8); NEUTROPHILS % (AUTO) 86 % (42-75); PLATELET COUNT 266 10^3/uL (130-400); WHITE BLOOD COUNT 10.6 10^3/uL (4.3-11.0)
[2022-05-12 15:44] LABS: BILIRUBIN,TOTAL 0.4 MG/DL (0.1-1.0); CALCIUM 9.3 MG/DL (8.5-10.1); CREATININE SERUM 1.13 MG/DL (0.60-1.30); POTASSIUM 4.1 MMOL/L (3.6-5.0); TOTAL PROTEIN 7.5 GM/DL (6.4-8.2)
== END 2022-05-16 | disposition home or self-care (01) ==
LOC: ONC 14:46
PROVIDERS: ATTEND Internal Medicine Hematology & Oncology
DX: C18.9 Malignant neoplasm of colon, unspecified (principal); D50.9 Iron deficiency anemia, unspecified; I25.10 Atherosclerotic heart disease of native coronary artery without angina pectoris; E11.9 Type 2 diabetes mellitus without complications; I10 Essential (primary) hypertension; Z79.899 Other long term (current) drug therapy
CPT/HCPCS: 36415; 80053; 82728; 83540; 83550; 85025

== ENCOUNTER 2022-05-19 09:21 | Outpatient (RCR) | payer MEDICARE ==
[~2022-05-19 09:21] MED LIST changes: +CLOP-31 PO; -CLOP75TA69 PO
== END 2022-06-15 | disposition home or self-care (01) ==
LOC: ONC 09:21
PROVIDERS: ATTEND Internal Medicine Hematology & Oncology
DX: Z45.2 Encounter for adjustment and management of vascular access device (principal); C18.9 Malignant neoplasm of colon, unspecified; D50.9 Iron deficiency anemia, unspecified; I25.10 Atherosclerotic heart disease of native coronary artery without angina pectoris; E11.9 Type 2 diabetes mellitus without complications; I10 Essential (primary) hypertension; Z79.899 Other long term (current) drug therapy
CPT/HCPCS: 82378; G0463; 36591; 99213

== ENCOUNTER 2022-08-11 14:25 | Outpatient (RCR) | payer MEDICARE ==
[2022-08-02 14:02] LABS: BASOPHILS # (AUTO) 0.1 10^3/uL (0.0-0.1); BASOPHILS % (AUTO) 1 % (0-10); EOSINOPHILS # (AUTO) 0.1 10^3/uL (0.0-0.3); EOSINOPHILS % (AUTO) 1 % (0-10); HEMATOCRIT 34 % (40-54); HEMOGLOBIN 11.1 g/dL (13.3-17.7); LYMPHOCYTES # (AUTO) 1.7 10^3/uL (1.0-4.0); LYMPHOCYTES % (AUTO) 18 % (12-44); MEAN CORPUSCULAR HEMOGLOBIN 32 pg (25-34); MEAN CORPUSCULAR HGB CONC 33 g/dL (32-36); MEAN CORPUSCULAR VOLUME 95 fL (80-99); MEAN PLATELET VOLUME 9.5 fL (9.0-12.2); MONOCYTES # (AUTO) 0.4 10^3/uL (0.0-1.0); MONOCYTES % (AUTO) 5 % (0-12); NEUTROPHILS # (AUTO) 7.1 10^3/uL (1.8-7.8); NEUTROPHILS % (AUTO) 75 % (42-75); PLATELET COUNT 258 10^3/uL (130-400); WHITE BLOOD COUNT 9.4 10^3/uL (4.3-11.0)
[2022-08-02 14:20] LABS: BILIRUBIN,TOTAL 0.4 MG/DL (0.1-1.0); CALCIUM 9.1 MG/DL (8.5-10.1); CREATININE SERUM 1.15 MG/DL (0.60-1.30); POTASSIUM 3.7 MMOL/L (3.6-5.0); TOTAL PROTEIN 7.1 GM/DL (6.4-8.2)
== END 2022-08-16 | disposition home or self-care (01) ==
LOC: ONC 14:25
PROVIDERS: ATTEND Internal Medicine Hematology & Oncology
DX: Z45.2 Encounter for adjustment and management of vascular access device (principal); C18.9 Malignant neoplasm of colon, unspecified; D50.9 Iron deficiency anemia, unspecified; I25.10 Atherosclerotic heart disease of native coronary artery without angina pectoris; E11.9 Type 2 diabetes mellitus without complications; I10 Essential (primary) hypertension; Z79.899 Other long term (current) drug therapy
CPT/HCPCS: 36591; 80053; 82378; 82728; 83540; 83550; 85025; 99213

== ENCOUNTER 2022-11-03 13:44 | Outpatient (RCR) | payer MEDICARE ==
[2022-10-27 12:38] LABS: BASOPHILS % (AUTO) 0 % (0-10); EOSINOPHILS # (AUTO) 0.1 10^3/uL (0.0-0.3); EOSINOPHILS % (AUTO) 1 % (0-10); HEMATOCRIT 31 % (40-54); LYMPHOCYTES % (AUTO) 22 % (12-44); MEAN CORPUSCULAR HEMOGLOBIN 31 pg (25-34); MEAN CORPUSCULAR HGB CONC 33 g/dL (32-36); MEAN CORPUSCULAR VOLUME 95 fL (80-99); MONOCYTES # (AUTO) 0.5 10^3/uL (0.0-1.0); MONOCYTES % (AUTO) 5 % (0-12); NEUTROPHILS # (AUTO) 6.6 10^3/uL (1.8-7.8); NEUTROPHILS % (AUTO) 71 % (42-75); PLATELET COUNT 253 10^3/uL (130-400); WHITE BLOOD COUNT 9.3 10^3/uL (4.3-11.0)
[2022-10-27 13:00] LABS: ALBUMIN 3.8 GM/DL (3.2-4.5); BILIRUBIN,TOTAL 0.5 MG/DL (0.1-1.0); CALCIUM 8.9 MG/DL (8.5-10.1); CREATININE SERUM 1.6 MG/DL (0.60-1.30); POTASSIUM 4.1 MMOL/L (3.6-5.0); TOTAL PROTEIN 6.7 GM/DL (6.4-8.2)
[~2022-11-03 13:44] MED LIST changes: -CARB-275 PO; +CARB-300 PO
== END 2022-11-13 | disposition home or self-care (01) ==
LOC: ONC 13:44
PROVIDERS: ATTEND Internal Medicine Hematology & Oncology
DX: Z45.2 Encounter for adjustment and management of vascular access device (principal); C18.9 Malignant neoplasm of colon, unspecified; D50.9 Iron deficiency anemia, unspecified; I25.10 Atherosclerotic heart disease of native coronary artery without angina pectoris; E11.9 Type 2 diabetes mellitus without complications; I10 Essential (primary) hypertension; Z79.899 Other long term (current) drug therapy
CPT/HCPCS: 36415; 36591; 80053; 82728; 83540; 83550; 85025

== ENCOUNTER 2022-11-19 05:58 | Emergency (ER) | payer MEDICARE ==
--- NOTE | 2022-11-19 06:09 | ED Syncope ---
General Stated Complaint: UNKNOWN Source of Information: Patient, EMS, Old Records Exam Limitations: No Limitations History of Present Illness Date Seen by Provider: November 19, 2022 Time Seen by Provider: 05:57 Initial Comments 72-year-old male with past medical history of CAD with stenting, diabetes, hypotension on midodrine, CKD, and prior history of colon cancer now in remission coming in via EMS from home after a syncopal episode. He states he went to bed normal, woke up around 2 AM with nonbloody diarrhea and nonbloody nonbilious vomiting. This occurred numerous times throughout the middle of the night, until the last time when he was vomiting, he did pass out. Afterwards he called EMS. He is unsure if he really has had, denies any headache, vision changes, chest pain, shortness of breath, palpitations, weakness, numbness, pain anywhere, or any other concerns. He states right now he feels essentially at his baseline. He does not take any blood thinners. He is otherwise denying any other acute complaints. EMS reports a glucose just above 100, and an EKG with no acute ischemic changes. Allergies and Home Medications Allergies Coded Allergies: oxaliplatin (Verified Allergy, Intermediate, 05/14/20) Patient Home Medication List Home Medication List Reviewed: Yes Acetaminophen (Tylenol Extra Strength) 500 Mg Tablet, 500-1,000 MG PO Q8H PRN for PAIN-MILD (1-4), (Reported) Entered as Reported by: YANNI DIAMOND on 06/18/21 0858 Alirocumab (Praluent Pen) 75 Mg/1 Ml Pen.injctr, 75 MG SQ UD, (Reported) Entered as Reported by: BJ HERRERA on 09/27/21 1332 Aspirin (Lo-Dose Aspirin EC) 81 Mg Tablet.dr, 81 MG PO 1500, (Reported) Entered as Reported by: CANDIDA CENTENO on 07/26/18 1416 Azelaic Acid (Finacea) 50 Gm Gel..gram., 1 APPLIC TP DAILY, (Reported) Entered as Reported by: MALIKA HENRY on 10/04/18 1204 Carbidopa/Levodopa (Sinemet 25-100 mg Tablet) 1 Each Tablet, 1 EACH PO TID, (Reported) Entered as Reported by: BJ HERRERA on 09/27/21 1332 Chlorpheniramine Maleate (Chlorpheniramine Maleate) 4 Mg Tablet, 4 MG PO BID PRN for ALLERGY SYMPTOMS, (Reported) Entered as Reported by: CANDIDA CENTENO on 12/05/18 0935 Clopidogrel Bisulfate (Clopidogrel) 75 Mg Tablet, 75 MG PO DAILY, (Reported) Entered as Reported by: YANNI DIAMOND on 06/18/21 0858 Cyanocobalamin (Vitamin B-12) (Vitamin B-12) 500 Mcg Tablet, 500 MCG PO 1200, (Reported) Entered as Reported by: YANNI DIAMOND on 05/14/20 1551 Docusate Sodium (Docusate Sodium) 100 Mg Capsule, 100 MG PO DAILY PRN for CONSTIPATION-1ST LINE, (Reported) Entered as Reported by: YANNI DIAMOND on 05/14/20 155 Ferrous Sulfate (Iron) 325 Mg Tablet, 325 MG PO 1500,2200, (Reported) Entered as Reported by: ALISON CENTENO on 05/16/21 1543 Fludrocortisone Acetate (Fludrocortisone Acetate) 0.1 Mg Tab, 0.1 MG PO MON,MON W/BREAKFAST, (Reported) Entered as Reported by: ALISON CENTENO on 05/16/21 1543 Fludrocortisone Acetate (Fludrocortisone Acetate) 0.1 Mg Tab, 0.05 MG PO MON,,,,SAT W/BREAKFAST, (Reported) Entered as Reported by: ALISON CENTENO on 05/16/21 1543 Gabapentin (Neurontin) 300 Mg Capsule, 300 MG PO 1800, (Reported) Entered as Reported by: YANNI DIAMOND on 05/14/20 154 Hydrocortisone (Hydrocortisone) 10 Mg Tablet, 10 MG PO DAILY, (Reported) Entered as Reported by: CIERRA SAMANIEGO on 11/25/19 1627 Hydrocortisone (Hydrocortisone) 10 Mg Tablet, 5 MG PO 1200, (Reported) Entered as Reported by: CIERRA SAMANIEGO on 11/25/19 162 Hydrocortisone (Hydrocortisone) 10 Mg Tablet, 2.5 MG PO 1500, (Reported) Entered as Reported by: CIERRA SAMANIEGO on 11/25/19 162 Levothyroxine Sodium (Euthyrox) 112 Mcg Tablet, 112 MCG PO DAILY, (Reported) Entered as Reported by: YANNI DIAMOND on 06/18/21 0858 Loteprednol Etabonate (Lotemax Sm) 5 Gm Drops.gel, 1 DROP OU 1900, (Reported) Entered as Reported by: YANNI DIAMOND on 05/14/20 1548 Metformin HCl (Metformin HCl) 1,000 Mg Tablet, 1,000 MG PO BID WITH MEALS, (Reported) Entered as Reported by: OLIVER HOFFMANN on 09/14/20 1318 Metronidazole (Metronidazole) 45 Gm Cream..g., 1 APPLIC TP 1900, (Reported) Entered as Reported by: MALIKA HENRY on 10/04/18 1204 Ondansetron (Ondansetron Odt) 4 Mg Tab.rapdis, 4 MG SL Q6H PRN for NAUSEA/VOMITING Prescribed by: MARQUITA MAURICE on 11/19/22 0656 Pantoprazole Sodium (Pantoprazole Sodium) 40 Mg Tablet.dr, 40 MG PO 1200 W/MEAL, (Reported) Entered as Reported by: YANNI DIAMOND on 06/18/21 0858 Pimecrolimus (Elidel) 30 Gm Cream.gm., 1 APPLIC TP DAILY PRN for PSORIASIS, (Reported) Entered as Reported by: MALIKA HENRY on 10/04/18 1204 Ranolazine (Ranolazine ER) 500 Mg Tab.er.12h, 500 MG PO BID WITH MEALS, (Reported) Entered as Reported by: OLIVER HOFFMANN on 10/19/20 1432 Semaglutide (Ozempic) 1 Mg/0.75 Ml Pen.injctr, 1 MG SQ WEEK, (Reported) Entered as Reported by: BJ HERRERA on 09/27/21 1332 [Domperidone] 10 TAB, 10 MG PO QIDACHS, (Reported) Entered as Reported by: YANNI DIAMOND on 05/14/20 1551 Review of Systems Constitutional: No fever EENTM: no symptoms reported Respiratory: no symptoms reported Cardiovascular: see HPI Gastrointestinal: no symptoms reported Genitourinary: no symptoms reported Musculoskeletal: no symptoms reported Skin: no symptoms reported Psychiatric/Neurological: No Symptoms Reported Past Hezugec-Uubpqx-Obhklw Hx Patient Social History Tobacco Use?: No Immunizations Up To Date Tetanus Booster (TDap): Unknown First/Initial COVID19 Vaccinat: YES Second COVID19 Vaccination Kwaku: YES Third COVID19 Vaccination Date: NO Seasonal Allergies Seasonal Allergies: No Past Medical History Surgery/Hospitalization HX: Recent TIA, DM, Colon Cancer Hx treated with hemicolectomy; Parkinson's like syndrome Surgeries: Yes (BLADDER SURGERY-CANCER, COLON RESECTION, PORT) Abdominal, Bladder Surgery, Bowel Surgery, Cardiac, Coronary Stent Respiratory: Yes Pulmonary Embolism Currently Using CPAP: No Currently Using BIPAP: No Cardiac: Yes (STENTS, ANGIOPLASTY 06/2018) Chronic Edema/Swelling, Coronary Artery Disease, High Cholesterol, Hypertension Neurological: No Parkinson's Disease Sexually Transmitted Disease: No HIV/AIDS: No Genitourinary: Yes (PAST HX BLADDER CA) Bladder Infection, Renal Failure Gastrointestinal: Yes (COLON CA) Gastroesophageal Reflux Musculoskeletal: No Arthritis, Chronic Back Pain Endocrine: Yes Hypothyroidsim HEENT: Yes (GLASSES) Cataract Loss of Vision: Bilateral Hearing Impairment: Denies Cancer: Yes Colon Did You Recieve Any Treatments: Yes What Type of Treatment Did You: Chemotherapy, Surgical Intervention Psychosocial: No Integumentary: Yes Psoriasis Blood Disorders: Yes (ANEMIA) Adverse Reaction/Blood Tranf: No (HAS HAD BLOOD WITH NO REACTION) Family Medical History Abdominal aortic aneurysm Cardiovascular disease Cataracts Colon cancer Diabetes mellitus Glaucoma Hypertension Myocardial infarction Respiratory disorder Thyroid disease Visual disorder CAD Over 55 Years Old Physical Exam Vital Signs Vital Signs - First Documented 11/19/22 05:58 Temp 36.5 Pulse 100 Resp 18 B/P (MAP) 159/89 (112) Pulse Ox 98 O2 Delivery Room Air Capillary Refill : Height, Weight, BMI Height: 6'3.00" Weight: 188lbs. 1.6oz. 85.644201zg; 21.30 BMI Method:Estimated General Appearance: No Apparent Distress, WD/WN HEENT: PERRL/EOMI, Normal ENT Inspection, Pharynx Normal Neck: Full Range of Motion, Normal Inspection, Non Tender, Supple Cardiovascular: Regular Rate, Rhythm, No Edema, Normal Peripheral Pulses Respiratory: Chest Non Tender, Lungs Clear, Normal Breath Sounds, No Accessory Muscle Use Gastrointestinal: Normal Bowel Sounds, Non Tender, Soft; No Distended, No Guarding Back: Normal Inspection, No CVA Tenderness, No Vertebral Tenderness Extremities: Normal Capillary Refill, Normal Inspection, Normal Range of Motion, Non Tender, No Calf Tenderness, No Pedal Edema Neurologic/Psychiatric: Alert, Oriented x3, No Motor/Sensory Deficits, Normal Mood/Affect, pharmacy associate II-XII Norm as Tested Cranial Nerves: Normal Hearing, Normal Speech, PERRL Coordination/Gait: Normal Finger to Nose, Normal Gait Motor/Sensory: No Motor Deficit, No Sensory Deficit, No Pronator Drift Skin: Normal Color, Warm/Dry Progress/Results/Core Measures Results/Orders Lab Results Laboratory Tests Test 11/19/22 06:05 Range/Units White Blood Count 17.6 H 4.3-11.0 10^3/uL Red Blood Count 3.55 L 4.30-5.52 10^6/uL Hemoglobin 11.1 L 13.3-17.7 g/dL Hematocrit 34 L 40-54 % Mean Corpuscular Volume 96 80-99 fL Mean Corpuscular Hemoglobin 31 25-34 pg Mean Corpuscular Hemoglobin Concent 33 32-36 g/dL Red Cell Distribution Width 13.3 10.0-14.5 % Platelet Count 253 130-400 10^3/uL Mean Platelet Volume 9.8 9.0-12.2 fL Immature Granulocyte % (Auto) 0 % Neutrophils (%) (Auto) 71 42-75 % Lymphocytes (%) (Auto) 20 12-44 % Monocytes (%) (Auto) 5 0-12 % Eosinophils (%) (Auto) 3 0-10 % Basophils (%) (Auto) 0 0-10 % Neutrophils # (Auto) 12.6 H 1.8-7.8 10^3/uL Lymphocytes # (Auto) 3.5 1.0-4.0 10^3/uL Monocytes # (Auto) 0.9 0.0-1.0 10^3/uL Eosinophils # (Auto) 0.6 H 0.0-0.3 10^3/uL Basophils # (Auto) 0.1 0.0-0.1 10^3/uL Immature Granulocyte # (Auto) 0.1 0.0-0.1 10^3/uL Neutrophils % (Manual) 76 % Lymphocytes % (Manual) 20 % Monocytes % (Manual) 2 % Eosinophils % (Manual) 2 % Prothrombin Time 12.8 12.2-14.7 SEC INR Comment 0.9 0.8-1.4 Activated Partial Thromboplast Time 23 L 24-35 SEC Sodium Level 138 135-145 MMOL/L Potassium Level 4.1 3.6-5.0 MMOL/L Chloride Level 101 98-107 MMOL/L Carbon Dioxide Level 21 21-32 MMOL/L Anion Gap 16 H 5-14 MMOL/L Blood Urea Nitrogen 20 H 7-18 MG/DL Creatinine 1.41 H 0.60-1.30 MG/DL Estimat Glomerular Filtration Rate 52 BUN/Creatinine Ratio 14 Glucose Level 117 H 70-105 MG/DL Calcium Level 8.8 8.5-10.1 MG/DL Corrected Calcium 9.1 8.5-10.1 MG/DL Magnesium Level 2.0 1.6-2.4 MG/DL Total Bilirubin 0.2 0.1-1.0 MG/DL Aspartate Amino Transf (AST/SGOT) 15 5-34 U/L Alanine Aminotransferase (ALT/SGPT) 7 0-55 U/L Alkaline Phosphatase 84 40-136 U/L Troponin I < 0.30 <0.30 NG/ML Total Protein 6.8 6.4-8.2 GM/DL Albumin 3.6 3.2-4.5 GM/DL Lipase 66 8-78 U/L Serum Alcohol < 10 <10 MG/DL My Orders Orders - MARQUITA MAURICE MD Alcohol (11/19/22 06:05) Cbc With Automated Diff (11/19/22 06:05) Lipase (11/19/22 06:05) Magnesium (11/19/22 06:05) Protime With Inr (11/19/22 06:05) Partial Thromboplastin Time (11/19/22 06:05) Probnp Fs (11/19/22 06:05) Troponin I Fs (11/19/22 06:05) Ct Head/Cervical Spine Wo (11/19/22 06:05) Chest 1 View Ap/Pa Only (11/19/22 06:05) Ed Iv/Invasive Line Start (11/19/22 06:05) Ekg Tracing (11/19/22 06:05) Monitor-Rhythm Ecg Trace Only (11/19/22 06:05) Manual Differential (11/19/22 06:05) Comprehensive Metabolic Panel (11/19/22 06:36) Vital Signs/I&O 11/19/22 05:58 Temp 36.5 Pulse 100 Resp 18 B/P (MAP) 159/89 (112) Pulse Ox 98 O2 Delivery Room Air Progress Progress Note : Progress Note 72-year-old male with above history coming in after a syncopal episode. ABCs were intact and vitals were stable on presentation. Glucose just above 100 for EMS. EKG ordered and interpreted by me showing no acute ischemic changes, QTc 4 1, no delta wave. Chest x-ray ordered and interpreted by me showing no pneumonia, normal cardiac silhouette, no pneumothorax. CT head and cervical spine also ordered and interpreted by me showing no obvious fracture or intracranial hemorrhage. An IV was placed and basic labs were obtained and were significant for slightly elevated white blood cell count, normal creatinine, essentially normal electrolytes, negative troponin. I went back and reexamined the patient and confirmed completely normal neuro exam. He is at his baseline, not vomiting now. It sounds like he has a viral illness with vomiting and diarrhea that are both nonbloody, and likely viral in cause. He received a liter of IV fluids from EMS that we finished here through his IV. He does struggle with low blood pressure chronically, and is on hydrocortisone and midodrine. I suspect he had a vasovagal syncopal episode due to low blood pressure that he chronically deals with. He is not showing any concerns for life-threatening causes at this time. No clinical signs of a DVT, is not tachycardic, not hypoxic, PE unlikely. Not having any cough or shortness of breath that would be concerning for infection in his lungs. I believe he stable for discharge with outpatient follow-up. He was sent home with strict return precautions. Initial ECG Impression Date: November 19, 2022 Initial ECG Impression Time: 06:12 Initial ECG Rate: 89 Initial ECG Rhythm: Normal Sinus Comment Narrow QRS, normal axis, no significant ST changes or T wave abnormalities Diagnostic Imaging Diagonstic Imaging: Xray (chest), CT (head and c spine) Comments [facility], [place] NAME: HETAL HERNANDEZ [facility] REC#: [id number] PT STATUS: REG ER : 1950 PHYSICIAN: MARQUITA MAURICE MD ADMIT DATE: 11/19/22/ER FS Draft Date of Exam:05/06/23 CT HEAD/CERVICAL SPINE WO PROCEDURE: CT head and CT cervical spine without contrast. TECHNIQUE: Multiple contiguous axial images were obtained through the brain and cervical spine without the use of intravenous contrast. Sagittal and coronal reformations through the cervical spine were then performed. Auto Exposure Controls were utilized during the CT exam to meet ALARA standards for radiation dose reduction. INDICATION: Nausea and vomiting. Syncopal episode. Head and neck pain. COMPARISON: 09/24/2021. FINDINGS: CT head: No large acute territorial ischemia, mass, or hemorrhage. No midline shift or mass effect. Decreased attenuation is seen in the periventricular and subcortical white matter. The ventricles and cortical sulci are prominent. The basilar cisterns are patent and unremarkable. The calvarium is intact. Fluid level seen in the right maxillary sinus. The mastoid air cells are clear. CT cervical spine: No acute fracture or dislocation is seen in the cervical spine. No focal osseous lesions. Vertebral body heights are well-maintained. The craniocervical junction is well-maintained. Mild degenerative changes are seen in the cervical spine with disc osteophyte complexes and uncovertebral arthropathy. Soft tissues of the neck are unremarkable. IMPRESSION: 1. No hemorrhage or focal intra-axial mass. No CT evidence of large acute territorial ischemia. 2. No acute fracture or dislocation in the cervical spine. 3. Small fluid level in the right maxillary sinus, suggestive of acute sinusitis. Agree with overnight report. Dictated on workstation # [id number] Dict: 11/19/22 0638 Trans: 11/19/22 0641 CV [id number] Interpreted by: ELMER LOPEZ DO Electronically signed by: Departure Impression Primary Impression: Vasovagal syncope Additional Impression: Vomiting and diarrhea Disposition: 01 HOME, SELF-CARE Condition: Improved Departure-Patient Inst. Decision time for Depature: 07:10 Referrals: EMIL RITTER MD (PCP/Family) Primary Care Physician Patient Instructions: Syncope (Fainting) (DC), Nausea and Vomiting, Adult ED Add. Discharge Instructions: You likely have a viral illness with the vomiting and diarrhea. If you develop severe abdominal pain that is unrelenting even after the episode of diarrhea or vomiting, we would want you to be seen in the ER. Additionally if you have pure blood in your vomit or diarrhea or black stools then we would want you to be seen again. Drink plenty of fluids to try to keep up with the episodes of vomiting and diarrhea today. Try to only stand up very slowly, and sit down immediately if you are feeling faint. Nausea medicines were sent to your pharmacy as well. Typically these GI bugs last anywhere from 1 to 3 days. Scripts Ondansetron (Ondansetron Odt) 4 Mg Tab.rapdis 4 MG SL Q6H PRN for NAUSEA/VOMITING for 5 Days, #20 TAB Prov: MARQUITA MAURICE MD 11/19/22 MARQUITA MAURICE MD November 19, 2022 06:09
[2022-11-19 06:13] LABS: BASOPHILS # (AUTO) 0.1 10^3/uL (0.0-0.1); BASOPHILS % (AUTO) 0 % (0-10); EOSINOPHILS # (AUTO) 0.6 10^3/uL (0.0-0.3); EOSINOPHILS % (AUTO) 3 % (0-10); HEMATOCRIT 34 % (40-54); HEMOGLOBIN 11.1 g/dL (13.3-17.7); LYMPHOCYTES # (AUTO) 3.5 10^3/uL (1.0-4.0); LYMPHOCYTES % (AUTO) 20 % (12-44); MEAN CORPUSCULAR HEMOGLOBIN 31 pg (25-34); MEAN CORPUSCULAR HGB CONC 33 g/dL (32-36); MEAN CORPUSCULAR VOLUME 96 fL (80-99); MEAN PLATELET VOLUME 9.8 fL (9.0-12.2); MONOCYTES # (AUTO) 0.9 10^3/uL (0.0-1.0); MONOCYTES % (AUTO) 5 % (0-12); NEUTROPHILS # (AUTO) 12.6 10^3/uL (1.8-7.8); NEUTROPHILS % (AUTO) 71 % (42-75); PLATELET COUNT 253 10^3/uL (130-400); WHITE BLOOD COUNT 17.6 10^3/uL (4.3-11.0)
[2022-11-19 06:23] LABS: INR 0.9 (0.8-1.4); PROTHROMBIN TIME PATIENT 12.8 SEC (12.2-14.7)
[2022-11-19 06:35] LABS: EOSINOPHILS % (MANUAL) 2 %; LYMPHOCYTES % (MANUAL) 20 %; MONOCYTES % (MANUAL) 2 %; NEUTROPHILS % (MANUAL) 76 %
--- NOTE | 2022-11-19 06:41 | Diagnostic Imaging Report ---
PROCEDURE: CT head and CT cervical spine without contrast. TECHNIQUE: Multiple contiguous axial images were obtained through the brain and cervical spine without the use of intravenous contrast. Sagittal and coronal reformations through the cervical spine were then performed. Auto Exposure Controls were utilized during the CT exam to meet ALARA standards for radiation dose reduction. INDICATION: Nausea and vomiting. Syncopal episode. Head and neck pain. COMPARISON: 09/24/2021. FINDINGS: CT head: No large acute territorial ischemia, mass, or hemorrhage. No midline shift or mass effect. Decreased attenuation is seen in the periventricular and subcortical white matter. The ventricles and cortical sulci are prominent. The basilar cisterns are patent and unremarkable. The calvarium is intact. Fluid level seen in the right maxillary sinus. The mastoid air cells are clear. CT cervical spine: No acute fracture or dislocation is seen in the cervical spine. No focal osseous lesions. Vertebral body heights are well-maintained. The craniocervical junction is well-maintained. Mild degenerative changes are seen in the cervical spine with disc osteophyte complexes and uncovertebral arthropathy. Soft tissues of the neck are unremarkable. IMPRESSION: 1. No hemorrhage or focal intra-axial mass. No CT evidence of large acute territorial ischemia. 2. No acute fracture or dislocation in the cervical spine. 3. Small fluid level in the right maxillary sinus, suggestive of acute sinusitis. Agree with overnight report. Dictated by: Dictated on workstation # [id number]
--- NOTE | 2022-11-19 06:51 | Diagnostic Imaging Report ---
INDICATION: Syncope. Comparison is made with prior exam of 09/24/2021. FINDINGS: There is cardiomegaly. The lungs are clear. No pleural effusion or pneumothorax. Mediastinum unremarkable. Nnkowz-i-Xdwv catheter has its tip in superior vena cava. IMPRESSION: No acute cardiopulmonary abnormality. Cardiomegaly. Dictated by: Dictated on workstation # [id number]
[2022-11-19 06:55] LABS: LIPASE 66 U/L (8-78); POTASSIUM 4.1 MMOL/L (3.6-5.0)
[2022-11-19 06:56] LABS: ALBUMIN 3.6 GM/DL (3.2-4.5); BILIRUBIN,TOTAL 0.2 MG/DL (0.1-1.0); CALCIUM 8.8 MG/DL (8.5-10.1); CREATININE SERUM 1.41 MG/DL (0.60-1.30); TOTAL PROTEIN 6.8 GM/DL (6.4-8.2)
[2022-11-19] MEDS ORDERED: ONDA4TAB11 SL (06:56)
[2022-11-19 07:17] VITALS: BP 159/89
== END 2022-11-19 07:17 | disposition home or self-care (01) ==
LOC: EDUNIT# 05:58 → ER FS 06:00
DX: R55 Syncope and collapse (principal); R11.2 Nausea with vomiting, unspecified; R19.7 Diarrhea, unspecified; I95.9 Hypotension, unspecified; Z79.899 Other long term (current) drug therapy; Z28.310 Unvaccinated for COVID-19
CPT/HCPCS: 36415; 70450; 71045; 72125; 80053; 83690; 83735; 83880; 84484; 85007; 85027; 85610; 85730; 93005; 93041; 99284; G0480; 80320

== ENCOUNTER 2022-12-13 13:21 | Outpatient (RCR) | payer MEDICARE ==
[~2022-12-13 13:21] MED LIST changes: +ONDA4TAB11 SL
[2022-12-13 13:45] LABS: BASOPHILS % (AUTO) 0 % (0-10); EOSINOPHILS # (AUTO) 0.3 10^3/uL (0.0-0.3); EOSINOPHILS % (AUTO) 3 % (0-10); HEMATOCRIT 30 % (40-54); LYMPHOCYTES # (AUTO) 1.5 10^3/uL (1.0-4.0); LYMPHOCYTES % (AUTO) 16 % (12-44); MEAN CORPUSCULAR HEMOGLOBIN 32 pg (25-34); MEAN CORPUSCULAR HGB CONC 33 g/dL (32-36); MEAN CORPUSCULAR VOLUME 96 fL (80-99); MEAN PLATELET VOLUME 9.6 fL (9.0-12.2); MONOCYTES # (AUTO) 0.4 10^3/uL (0.0-1.0); MONOCYTES % (AUTO) 4 % (0-12); NEUTROPHILS # (AUTO) 7.3 10^3/uL (1.8-7.8); NEUTROPHILS % (AUTO) 76 % (42-75); PLATELET COUNT 240 10^3/uL (130-400); WHITE BLOOD COUNT 9.6 10^3/uL (4.3-11.0)
[2022-12-13 14:07] LABS: ALANINE AMINOTRANSFERASE < 6 U/L (0-55); ALBUMIN 3.7 GM/DL (3.2-4.5); ALKALINE PHOSPHATASE 82 U/L (40-136); BILIRUBIN,TOTAL 0.2 MG/DL (0.1-1.0); BUN/CREATININE RATIO 15; CALCIUM 8.7 MG/DL (8.5-10.1); CARBON DIOXIDE 24 MMOL/L (21-32); CHLORIDE 99 MMOL/L (98-107); CREATININE SERUM 1.63 MG/DL (0.60-1.30); GFR ESTIMATED 44; GLUCOSE 277 MG/DL (70-105); POTASSIUM 4.2 MMOL/L (3.6-5.0); SODIUM 131 MMOL/L (135-145); TOTAL PROTEIN 6.9 GM/DL (6.4-8.2)
== END 2022-12-14 | disposition home or self-care (01) ==
LOC: ONC 13:21
PROVIDERS: ATTEND Internal Medicine Hematology & Oncology
DX: C18.9 Malignant neoplasm of colon, unspecified (principal); D50.9 Iron deficiency anemia, unspecified; I25.10 Atherosclerotic heart disease of native coronary artery without angina pectoris; E11.9 Type 2 diabetes mellitus without complications; I10 Essential (primary) hypertension; Z79.899 Other long term (current) drug therapy
CPT/HCPCS: 36415; 80053; 82728; 83540; 83550; 85025

== ENCOUNTER 2022-12-15 11:03 | Outpatient (RCR) | payer MEDICARE | END 2023-01-13 | LOC: ONC 11:03 | PROVIDERS: ATTEND Internal Medicine Hematology & Oncology | DX: C18.9 Malignant neoplasm of colon, unspecified (principal); D50.9 Iron deficiency anemia, unspecified; I25.10 Atherosclerotic heart disease of native coronary artery without angina pectoris; E11.9 Type 2 diabetes mellitus without complications; I10 Essential (primary) hypertension; Z79.899 Other long term (current) drug therapy ==

== ENCOUNTER 2023-03-13 11:15 | Outpatient (RCR) | payer MEDICARE ==
[2023-03-09 13:47] LABS: BASOPHILS # (AUTO) 0.1 10^3/uL (0.0-0.1); BASOPHILS % (AUTO) 1 % (0-10); EOSINOPHILS # (AUTO) 0.3 10^3/uL (0.0-0.3); EOSINOPHILS % (AUTO) 3 % (0-10); HEMATOCRIT 33 % (40-54); HEMOGLOBIN 10.5 g/dL (13.3-17.7); LYMPHOCYTES # (AUTO) 1.6 10^3/uL (1.0-4.0); LYMPHOCYTES % (AUTO) 18 % (12-44); MEAN CORPUSCULAR HEMOGLOBIN 29 pg (25-34); MEAN CORPUSCULAR HGB CONC 32 g/dL (32-36); MEAN CORPUSCULAR VOLUME 93 fL (80-99); MEAN PLATELET VOLUME 9.2 fL (9.0-12.2); MONOCYTES # (AUTO) 0.6 10^3/uL (0.0-1.0); MONOCYTES % (AUTO) 7 % (0-12); NEUTROPHILS # (AUTO) 6.5 10^3/uL (1.8-7.8); NEUTROPHILS % (AUTO) 71 % (42-75); PLATELET COUNT 300 10^3/uL (130-400); WHITE BLOOD COUNT 9.1 10^3/uL (4.3-11.0)
[2023-03-09 14:08] LABS: ALANINE AMINOTRANSFERASE < 6 U/L (0-55); ALBUMIN 3.9 GM/DL (3.2-4.5); ALKALINE PHOSPHATASE 74 U/L (40-136); BILIRUBIN,TOTAL 0.4 MG/DL (0.1-1.0); BUN/CREATININE RATIO 11; CALCIUM 8.6 MG/DL (8.5-10.1); CARBON DIOXIDE 26 MMOL/L (21-32); CHLORIDE 96 MMOL/L (98-107); CREATININE SERUM 1.72 MG/DL (0.60-1.30); GFR ESTIMATED 41; GLUCOSE 224 MG/DL (70-105); POTASSIUM 4.2 MMOL/L (3.6-5.0); SODIUM 132 MMOL/L (135-145); TOTAL PROTEIN 6.9 GM/DL (6.4-8.2)
== END 2023-03-16 | disposition home or self-care (01) ==
LOC: ONC 11:15
PROVIDERS: ATTEND Internal Medicine Hematology & Oncology
DX: Z45.2 Encounter for adjustment and management of vascular access device (principal); C18.9 Malignant neoplasm of colon, unspecified; D50.9 Iron deficiency anemia, unspecified; I25.10 Atherosclerotic heart disease of native coronary artery without angina pectoris; E11.9 Type 2 diabetes mellitus without complications; I10 Essential (primary) hypertension; Z79.899 Other long term (current) drug therapy
CPT/HCPCS: 36415; 80053; 82728; 83540; 83550; 85025; 96523; 99214

== ENCOUNTER 2023-05-13 19:49 | Emergency (ER) | payer MEDICARE ==
[~2023-05-13] VITALS: Ht 190.5 cm; Wt 78.0 kg
--- NOTE | 2023-05-13 19:53 | ED General ---
General Stated Complaint: WEAKNESS History of Present Illness Date Seen by Provider: May 13, 2023 Time Seen by Provider: 19:52 Initial Comments 73-year-old male presents with some generalized weakness. Patient was in the shower when he developed some weakness. He did not develop any focal weakness or deficit but just a generalized weakness. Denies any chest pain, shortness of breath or other symptoms. Allergies and Home Medications Allergies Coded Allergies: oxaliplatin (Verified Allergy, Intermediate, 05/14/20) Patient Home Medication List Home Medication List Reviewed: Yes Acetaminophen (Tylenol Extra Strength) 500 Mg Tablet, 500-1,000 MG PO Q8H PRN for PAIN-MILD (1-4), (Reported) Entered as Reported by: YANNI DIAMOND on 06/18/21 0858 Alirocumab (Praluent Pen) 75 Mg/1 Ml Pen.injctr, 75 MG SQ UD, (Reported) Entered as Reported by: BJ HERRERA on 09/27/21 1332 Aspirin (Lo-Dose Aspirin EC) 81 Mg Tablet.dr, 81 MG PO 1500, (Reported) Entered as Reported by: CANDIDA CENTENO on 07/26/18 1416 Azelaic Acid (Finacea) 50 Gm Gel..gram., 1 APPLIC TP DAILY, (Reported) Entered as Reported by: MALIKA HENRY on 10/04/18 1204 Carbidopa/Levodopa (Sinemet 25-100 mg Tablet) 1 Each Tablet, 1 EACH PO TID, (Reported) Entered as Reported by: BJ HERRERA on 09/27/21 1332 Chlorpheniramine Maleate (Chlorpheniramine Maleate) 4 Mg Tablet, 4 MG PO BID PRN for ALLERGY SYMPTOMS, (Reported) Entered as Reported by: CANDIDA CENTENO on 12/05/18 0935 Clopidogrel Bisulfate (Clopidogrel) 75 Mg Tablet, 75 MG PO DAILY, (Reported) Entered as Reported by: YANNI DIAMOND on 06/18/21 0858 Cyanocobalamin (Vitamin B-12) (Vitamin B-12) 500 Mcg Tablet, 500 MCG PO 1200, (Reported) Entered as Reported by: YANNI DIAMOND on 05/14/20 1551 Docusate Sodium (Docusate Sodium) 100 Mg Capsule, 100 MG PO DAILY PRN for CONSTIPATION-1ST LINE, (Reported) Entered as Reported by: YANNI DIAMOND on 05/14/20 1551 Ferrous Sulfate (Iron) 325 Mg Tablet, 325 MG PO 1500,2200, (Reported) Entered as Reported by: ALISON CENTENO on 05/16/21 154 Fludrocortisone Acetate (Fludrocortisone Acetate) 0.1 Mg Tab, 0.1 MG PO MON,FRI W/BREAKFAST, (Reported) Entered as Reported by: ALISON CENTENO on 05/16/21 154 Fludrocortisone Acetate (Fludrocortisone Acetate) 0.1 Mg Tab, 0.05 MG PO SUN,,WE,TH,SAT W/BREAKFAST, (Reported) Entered as Reported by: ALIOSN CENTENO on 05/16/21 154 Gabapentin (Neurontin) 300 Mg Capsule, 300 MG PO 1800, (Reported) Entered as Reported by: YANNI DIAMOND on 05/14/20 154 Hydrocortisone (Hydrocortisone) 10 Mg Tablet, 10 MG PO DAILY, (Reported) Entered as Reported by: CIERRA SAMANIEGO on 11/25/19 1627 Hydrocortisone (Hydrocortisone) 10 Mg Tablet, 5 MG PO 1200, (Reported) Entered as Reported by: CIERRA SAMANIEGO on 11/25/19 1627 Hydrocortisone (Hydrocortisone) 10 Mg Tablet, 2.5 MG PO 1500, (Reported) Entered as Reported by: CIERRA SAMANIEGO on 11/25/19 162 Levothyroxine Sodium (Euthyrox) 112 Mcg Tablet, 112 MCG PO DAILY, (Reported) Entered as Reported by: YANNI DIAMOND on 06/18/21 0858 Loteprednol Etabonate (Lotemax Sm) 5 Gm Drops.gel, 1 DROP OU 1900, (Reported) Entered as Reported by: YANNI DIAMOND on 05/14/20 1548 Metformin HCl (Metformin HCl) 1,000 Mg Tablet, 1,000 MG PO BID WITH MEALS, (Reported) Entered as Reported by: OLIVER HOFFMANN on 09/14/20 1318 Metronidazole (Metronidazole) 45 Gm Cream..g., 1 APPLIC TP 1900, (Reported) Entered as Reported by: MALIKA HENRY on 10/04/18 1204 Ondansetron (Ondansetron Odt) 4 Mg Tab.rapdis, 4 MG SL Q6H PRN for NAUSEA/VOMITING Prescribed by: MARQUITA MAURICE on 11/19/22 0656 Pantoprazole Sodium (Pantoprazole Sodium) 40 Mg Tablet.dr, 40 MG PO 1200 W/MEAL, (Reported) Entered as Reported by: YANNI DIAMOND on 06/18/21 0858 Pimecrolimus (Elidel) 30 Gm Cream.gm., 1 APPLIC TP DAILY PRN for PSORIASIS, (Reported) Entered as Reported by: MALIKA HENRY on 10/04/18 1204 Ranolazine (Ranolazine ER) 500 Mg Tab.er.12h, 500 MG PO BID WITH MEALS, (Reported) Entered as Reported by: OLIVER HOFFMANN on 10/19/20 1432 Semaglutide (Ozempic) 1 Mg/0.75 Ml Pen.injctr, 1 MG SQ WEEK, (Reported) Entered as Reported by: BJ HERRERA on 09/27/21 1332 [Domperidone] 10 TAB, 10 MG PO QIDACHS, (Reported) Entered as Reported by: YANNI DIAMOND on 05/14/20 1551 Review of Systems Review of Systems Constitutional: see HPI, weakness Respiratory: no symptoms reported Cardiovascular: no symptoms reported Gastrointestinal: no symptoms reported Genitourinary: no symptoms reported Musculoskeletal: no symptoms reported Skin: no symptoms reported Psychiatric/Neurological: No Symptoms Reported Past Ncoxwzt-Ocfitf-Mchxqn Hx Immunizations Up To Date Tetanus Booster (TDap): Unknown First/Initial COVID19 Vaccinat: YES Second COVID19 Vaccination Kwaku: YES Third COVID19 Vaccination Date: NO Seasonal Allergies Seasonal Allergies: No Past Medical History Surgery/Hospitalization HX: Recent TIA, DM, Colon Cancer Hx treated with hemicolectomy; Parkinson's like syndrome Surgeries: Yes (BLADDER SURGERY-CANCER, COLON RESECTION, PORT) Abdominal, Bladder Surgery, Bowel Surgery, Cardiac, Coronary Stent Respiratory: Yes Pulmonary Embolism Currently Using CPAP: No Currently Using BIPAP: No Cardiac: Yes (STENTS, ANGIOPLASTY 06/2018) Chronic Edema/Swelling, Coronary Artery Disease, High Cholesterol, Hypertension Neurological: No Parkinson's Disease Sexually Transmitted Disease: No HIV/AIDS: No Genitourinary: Yes (PAST HX BLADDER CA) Bladder Infection, Renal Failure Gastrointestinal: Yes (COLON CA) Gastroesophageal Reflux Musculoskeletal: No Arthritis, Chronic Back Pain Endocrine: Yes Hypothyroidsim HEENT: Yes (GLASSES) Cataract Loss of Vision: Bilateral Hearing Impairment: Denies Cancer: Yes Colon Did You Recieve Any Treatments: Yes What Type of Treatment Did You: Chemotherapy, Surgical Intervention Psychosocial: No Integumentary: Yes Psoriasis Blood Disorders: Yes (ANEMIA) Adverse Reaction/Blood Tranf: No (HAS HAD BLOOD WITH NO REACTION) Family Medical History Abdominal aortic aneurysm Cardiovascular disease Cataracts Colon cancer Diabetes mellitus Glaucoma Hypertension Myocardial infarction Respiratory disorder Thyroid disease Visual disorder CAD Over 55 Years Old Physical Exam Vital Signs Vital Signs - First Documented 05/13/23 19:49 Temp 36.4 Pulse 86 Resp 17 B/P (MAP) 134/84 (101) Pulse Ox 98 O2 Delivery Room Air Capillary Refill : Height, Weight, BMI Height: 6'3.00" Weight: 188lbs. 1.6oz. 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 Norm as Tested; No Aphasia, No Motor Weakness; Sensory Deficit (Bilateral chronic foot numbness from diabetes) Skin: Normal Color, Warm/Dry Progress/Results/Core Measures Suspected Sepsis SIRS Temperature: Pulse: Respiratory Rate: Laboratory Tests 05/13/23 19:55: White Blood Count 10.6 Blood Pressure / Mean: Laboratory Tests 05/13/23 19:55: Creatinine 1.83H, Platelet Count 271, Total Bilirubin 0.3 Results/Orders Lab Results Laboratory Tests Test 05/13/23 19:55 Range/Units White Blood Count 10.6 4.3-11.0 10^3/uL Red Blood Count 3.94 L 4.30-5.52 10^6/uL Hemoglobin 11.6 L 13.3-17.7 g/dL Hematocrit 37 L 40-54 % Mean Corpuscular Volume 93 80-99 fL Mean Corpuscular Hemoglobin 29 25-34 pg Mean Corpuscular Hemoglobin Concent 32 32-36 g/dL Red Cell Distribution Width 14.1 10.0-14.5 % Platelet Count 271 130-400 10^3/uL Mean Platelet Volume 9.8 9.0-12.2 fL Immature Granulocyte % (Auto) 1 % Neutrophils (%) (Auto) 62 42-75 % Lymphocytes (%) (Auto) 30 12-44 % Monocytes (%) (Auto) 6 0-12 % Eosinophils (%) (Auto) 1 0-10 % Basophils (%) (Auto) 1 0-10 % Neutrophils # (Auto) 6.6 1.8-7.8 10^3/uL Lymphocytes # (Auto) 3.2 1.0-4.0 10^3/uL Monocytes # (Auto) 0.6 0.0-1.0 10^3/uL Eosinophils # (Auto) 0.1 0.0-0.3 10^3/uL Basophils # (Auto) 0.1 0.0-0.1 10^3/uL Immature Granulocyte # (Auto) 0.1 0.0-0.1 10^3/uL Sodium Level 130 L 135-145 MMOL/L Potassium Level 3.4 L 3.6-5.0 MMOL/L Chloride Level 93 L 98-107 MMOL/L Carbon Dioxide Level 19 L 21-32 MMOL/L Anion Gap 18 H 5-14 MMOL/L Blood Urea Nitrogen 29 H 7-18 MG/DL Creatinine 1.83 H 0.60-1.30 MG/DL Estimat Glomerular Filtration Rate 38 BUN/Creatinine Ratio 16 Glucose Level 343 H 70-105 MG/DL Calcium Level 8.8 8.5-10.1 MG/DL Corrected Calcium 8.6 8.5-10.1 MG/DL Magnesium Level 2.2 1.6-2.4 MG/DL Total Bilirubin 0.3 0.1-1.0 MG/DL Aspartate Amino Transf (AST/SGOT) 13 5-34 U/L Alanine Aminotransferase (ALT/SGPT) < 5 0-55 U/L Alkaline Phosphatase 99 40-136 U/L Troponin I < 0.30 <0.30 NG/ML Total Protein 7.5 6.4-8.2 GM/DL Albumin 4.3 3.2-4.5 GM/DL My Orders Orders - OVIEDO,ALISON L DO Cbc And Automated Diff (05/13/23 19:53) Comprehensive Metabolic Panel (05/13/23 19:53) Magnesium (05/13/23 19:53) Troponin I Fs (05/13/23 19:53) Ekg Tracing (05/13/23 19:53) Monitor-Rhythm Ecg Trace Only (05/13/23 19:53) Vital Signs/I&O 05/13/23 19:49 Temp 36.4 Pulse 86 Resp 17 B/P (MAP) 134/84 (101) Pulse Ox 98 O2 Delivery Room Air Capillary Refill : Progress Note : Progress Note Patient diagnostic studies were ordered reviewed and interpreted by me. Patient's labs seem slightly more hemoconcentrated than his baseline. He does feel significantly better following some IV fluids. I suspect that maybe he was a little bit mildly dehydrated. He otherwise has no significant acute findings on physical exam or lab alexander besides just being slightly tired. Patient did have a vasovagal episode that appeared to be maybe mildly similar on 11/19/2022. The EKG today was reviewed to the EKG on 11/19/2022 and shows no acute findings with similar first-degree AV block and similar morphology. I discussed with patient that unable to tell for sure what caused his weakness. I do suspect may be some mild dehydration but otherwise is very nonspecific. Patient is feeling better and will be discharged home. I did recommend he follow-up with a primary care provider for further outpatient evaluation as needed. ECG Initial ECG Impression Date: May 13, 2023 Initial ECG Impression Time: 20:08 Initial ECG Rate: 80 Initial ECG Rhythm: Normal Sinus Initial ECG Intervals: NM (284) Initial ECG Impression: Nonspecific Changes, 1st Degree AV Block Initial ECG Comparisson: Unchanged Comment Similar to 11/19/2022 Departure Impression Primary Impression: Generalized weakness Disposition: 01 HOME, SELF-CARE Condition: Stable Departure-Patient Inst. Referrals: EMIL RITTER MD (PCP/Family) Primary Care Physician Patient Instructions: Dehydration, Adult (DC), Generalized Weakness (DC) Add. Discharge Instructions: Please follow-up with your primary care provider on Monday or Monday of next week for recheck of your symptoms. Return to the ER with any concerns or worsening of symptoms. ALISON OVIEDO DO May 13, 2023 19:53
[2023-05-13 20:04] LABS: BASOPHILS # (AUTO) 0.1 10^3/uL (0.0-0.1); BASOPHILS % (AUTO) 1 % (0-10); EOSINOPHILS # (AUTO) 0.1 10^3/uL (0.0-0.3); EOSINOPHILS % (AUTO) 1 % (0-10); HEMATOCRIT 37 % (40-54); HEMOGLOBIN 11.6 g/dL (13.3-17.7); LYMPHOCYTES # (AUTO) 3.2 10^3/uL (1.0-4.0); LYMPHOCYTES % (AUTO) 30 % (12-44); MEAN CORPUSCULAR HEMOGLOBIN 29 pg (25-34); MEAN CORPUSCULAR HGB CONC 32 g/dL (32-36); MEAN CORPUSCULAR VOLUME 93 fL (80-99); MEAN PLATELET VOLUME 9.8 fL (9.0-12.2); MONOCYTES # (AUTO) 0.6 10^3/uL (0.0-1.0); MONOCYTES % (AUTO) 6 % (0-12); NEUTROPHILS # (AUTO) 6.6 10^3/uL (1.8-7.8); NEUTROPHILS % (AUTO) 62 % (42-75); PLATELET COUNT 271 10^3/uL (130-400); WHITE BLOOD COUNT 10.6 10^3/uL (4.3-11.0)
[2023-05-13 20:22] LABS: CARBON DIOXIDE 19 MMOL/L (21-32); CHLORIDE 93 MMOL/L (98-107); POTASSIUM 3.4 MMOL/L (3.6-5.0); SODIUM 130 MMOL/L (135-145)
[2023-05-13 20:23] LABS: BILIRUBIN,TOTAL 0.3 MG/DL (0.1-1.0); CALCIUM 8.8 MG/DL (8.5-10.1); MAGNESIUM 2.2 MG/DL (1.6-2.4); TOTAL PROTEIN 7.5 GM/DL (6.4-8.2)
[2023-05-13 20:27] LABS: ALANINE AMINOTRANSFERASE < 5 U/L (0-55); ALBUMIN 4.3 GM/DL (3.2-4.5); ALKALINE PHOSPHATASE 99 U/L (40-136); BUN/CREATININE RATIO 16; CREATININE SERUM 1.83 MG/DL (0.60-1.30); GFR ESTIMATED 38; GLUCOSE 343 MG/DL (70-105)
[2023-05-13 21:00] VITALS: BP 188/77
== END 2023-05-13 21:00 | disposition home or self-care (01) ==
LOC: EDUNIT# 19:49 → ER FS 19:51
DX: R53.1 Weakness (principal)
CPT/HCPCS: 36415; 80053; 83735; 84484; 85025; 93005; 93041

== ENCOUNTER 2023-05-15 13:06 | Outpatient (RCR) | payer MEDICARE | END 2023-05-16 | disposition home or self-care (01) | LOC: ONC 13:06 | PROVIDERS: ATTEND Internal Medicine Hematology & Oncology | DX: C18.9 Malignant neoplasm of colon, unspecified (principal); D50.9 Iron deficiency anemia, unspecified; I25.10 Atherosclerotic heart disease of native coronary artery without angina pectoris; E11.9 Type 2 diabetes mellitus without complications; I10 Essential (primary) hypertension; Z79.899 Other long term (current) drug therapy ==